=== PATIENT | female | born 1960 | race Asian ===

== ENCOUNTER 2020-06-13 07:59 | Outpatient (REF) | payer OTHER, SELFPAY ==
[2020-06-13 11:42] LABS: Glucose Urine UA NEG (NEG); Leukocyte Esterase Urine NEG (NEG); Nitrite Urine NEG (NEG); PH 5.5 (5.0-8.0); Specific Gravity - Urine 1.025 (1.005-1.025); Urine Blood 1+ (NEG); Urine Ketones NEG (NEG); Urine Protein NEG (NEG-TRACE)
[2020-06-13 11:49] LABS: Appearance Urine HAZY; Color Urine YELLOW
[2020-06-13 12:31] LABS: Bacteria Urine TRACE /LPF; Mucus Urine 1+ /LPF; Squamous Epithelial Cell Urine 2+ /LPF; WBC Urine 0 /HPF (0-4)
== END 2020-06-13 08:00 | disposition home or self-care (01) ==
LOC: HO.HMGCLDS 07:59
PROVIDERS: PCP Internal Medicine; Visit Provider Internal Medicine
DX: M54.9 Dorsalgia, unspecified (principal); G62.9 Polyneuropathy, unspecified
CPT/HCPCS: 81001

== ENCOUNTER 2020-06-27 09:02 | Outpatient (REF) | payer OTHER, SELFPAY ==
--- NOTE | 2020-06-27 09:10 | XR_ITS ---
EXAMINATION: THORACIC AND LUMBAR SPINE. CLINICAL INFORMATION: Thoracic and lumbar spine pain. COMPARISON: None TECHNIQUE: 3 views dorsal spine. 3 views lumbar spine. FINDINGS: Dorsal spine: There is normal thoracic kyphosis. The vertebral heights, alignment and disc heights are normal. There is mild ventral spondylosis mid and lower dorsal spine. The paravertebral soft tissues are normal. Lumbar spine: There is normal lumbar lordosis. There is grade 1 anterolisthesis L5 over S1. Rest of the disc heights and all vertebral heights are normal. There is loss of L1-L2 and L2-L3 disc heights with mild ventral spondylosis. There is no visible acute fracture, dislocation or lytic process. There is mild bilateral L4-L5 facet joint arthropathy. XR/XR thoracic spine 3V IMPRESSION: Mild degenerative disc changes L1-L2 and L2-L3 disc levels without any visible acute fracture, dislocation. There is grade 1 anterolisthesis L5 over S1. There is mild ventral spondylosis as well. There is no visible acute fracture or dislocation thoracic or lumbar spine. There is mild ventral spondylosis mid and lower dorsal spine.
--- NOTE | 2020-06-27 09:10 | XR_ITS ---
EXAMINATION: THORACIC AND LUMBAR SPINE. CLINICAL INFORMATION: Thoracic and lumbar spine pain. COMPARISON: None TECHNIQUE: 3 views dorsal spine. 3 views lumbar spine. FINDINGS: Dorsal spine: There is normal thoracic kyphosis. The vertebral heights, alignment and disc heights are normal. There is mild ventral spondylosis mid and lower dorsal spine. The paravertebral soft tissues are normal. Lumbar spine: There is normal lumbar lordosis. There is grade 1 anterolisthesis L5 over S1. Rest of the disc heights and all vertebral heights are normal. There is loss of L1-L2 and L2-L3 disc heights with mild ventral spondylosis. There is no visible acute fracture, dislocation or lytic process. There is mild bilateral L4-L5 facet joint arthropathy. XR/XR lumbar spine 2-3V IMPRESSION: Mild degenerative disc changes L1-L2 and L2-L3 disc levels without any visible acute fracture, dislocation. There is grade 1 anterolisthesis L5 over S1. There is mild ventral spondylosis as well. There is no visible acute fracture or dislocation thoracic or lumbar spine. There is mild ventral spondylosis mid and lower dorsal spine.
== END 2020-06-27 09:03 | disposition home or self-care (01) ==
LOC: HO.HMGCX 09:02
PROVIDERS: PCP Internal Medicine; Visit Provider Internal Medicine
DX: M54.9 Dorsalgia, unspecified (principal)
CPT/HCPCS: 72072; 72100

== ENCOUNTER → 2020-10-17 08:14 | Outpatient (BNV) | payer OTHER, SELFPAY | PROVIDERS: PCP Internal Medicine; Visit Provider Internal Medicine Medical Oncology | DX: C23 Malignant neoplasm of gallbladder (principal); M85.80 Other specified disorders of bone density and structure, unspecified site; Z85.3 Personal history of malignant neoplasm of breast | CPT/HCPCS: 99213; 99214 ==

== ENCOUNTER → 2020-10-24 09:22 | Outpatient (REF) | payer OTHER, SELFPAY ==
--- NOTE | ~2020-10-24 | NM_ITS ---
EXAMINATION: NM BONE SCAN OF THE WHOLE BODY CLINICAL INFORMATION: Malignant neoplasm of the breast. COMPARISON: Films dated 06/27/2020, bone scan dated 08/12/2017. TECHNIQUE: Multiple gamma scintillation camera images of the whole body were performed 2.75 hours following the intravenous administration of 27 mCi Tc-99m MDP. FINDINGS: In the head, once again some uptake around the left maxillary region is seen. This may be consistent with sinus disease. Some spotty uptake in the mandible is likely related to dental changes. In the thoracic cage and upper extremities, unremarkable. Some mottled uptake is likely degenerative. Some mild uptake in the AC joints right greater than left is likely degenerative. In the spine, moderately intense uptake in the [id number] cervical spine is increasing from previous but likely degenerative in nature. Otherwise, mottled uptake in the thoracic and lumbar spine is stable. In the pelvis, no suspicious finding. In the lower extremities, spotty uptake in the knees and ankle regions are likely degenerative in nature. No other definite bony abnormalities are noted. The urinary bladder and faint visualization of both kidneys are noted. NM/NM bone scan whole body IMPRESSION: No convincing scintigraphic evidence metastatic disease. There is increasing uptake in the mid cervical spine on the right posterior which may well be increased active degenerative changes. I am recommending a plain film here to correlate. Otherwise, areas of uptake described are likely degenerative in nature.
== END ==
LOC: HO.NUCMED 09:22
PROVIDERS: Visit Provider Internal Medicine Medical Oncology
DX: C50.919 Malignant neoplasm of unspecified site of unspecified female breast (principal)
CPT/HCPCS: 78306; A9503

== ENCOUNTER 2020-10-31 08:09 | Outpatient (REF) | payer OTHER, SELFPAY ==
--- NOTE | ~2020-10-31 | XR_ITS ---
EXAMINATION: XR CERVICAL SPINE CLINICAL INFORMATION: Neck pain. COMPARISON: None. TECHNIQUE: 3 views of the cervical spine were obtained. FINDINGS: There is normal cervical lordosis. The vertebral heights and alignment is normal. The disc heights are maintained. There is moderate ventral spondylosis at C2-C3, C3-C4, C4-C5, C5-C6 and C6-C7 disc levels. There is no visible acute fracture, dislocation or subluxation. The prevertebral soft tissues are normal XR/XR cervical spine 3V IMPRESSION: Moderate ventral spondylosis C2-C3 through C6-C7 disc levels. No visible acute fracture or dislocation seen.
[2020-10-31 08:48] LABS: MANUAL DIFF FLAG NO
[2020-10-31 08:50] LABS: Basophils Percent Auto 0.8 % (0-2); Eosinophils Absolute Auto 0.2 X10*3/uL (0.0-0.4); Eosinophils Percent Auto 2.9 % (0-4); Hematocrit 37.6 % (37-47); Hemoglobin 12.5 g/dl (12.0-16.0); Imm Gran Abs Auto 0.01 X10*3/uL (0.00-0.03); Imm Gran Pct Auto 0.2 % (0.0-0.4); Lymphocytes Absolute Auto 2.4 X10*3/uL (1.2-4.9); Lymphocytes Percent Auto 47.2 % (20-40); Mean Corpuscular HGB Conc 33.2 g/dl (31.0-35.0); Mean Corpuscular Hemoglobin 30.3 pg (27.0-33.0); Mean Corpuscular Volume 91.3 fL (80-98); Mean Platelet Volume 9.6 fL (9.4-12.3); Monocytes Absolute Auto 0.5 X10*3/uL (0.1-1.2); Monocytes Percent Auto 9.6 % (2-11); Neutrophils Percent Auto 39.3 % (45-73); Platelet Count 222 X10*3/uL (160-400); Red Blood Count 4.12 X10*6/uL (4.20-5.50); Red Cell Distribution Width 12.8 % (11.0-16.0); White Blood Count 5.1 X10*3/uL (4.8-10.8)
[2020-10-31 09:22] LABS: Glucose Urine UA NEG (NEG); Leukocyte Esterase Urine NEG (NEG); Nitrite Urine NEG (NEG); Urine Blood TRACE (NEG); Urine Ketones NEG (NEG); Urine Protein NEG (NEG-TRACE)
[2020-10-31 09:24] LABS: Appearance Urine HAZY; Color Urine YELLOW
[2020-10-31 09:25] LABS: Alanine Aminotransferase 20 U/L (0-31); Albumin Level 4.2 g/dL (3.5-5.0); Alkaline Phosphatase 57 U/L (39-117); Anion Gap 12 (12-20); Aspartate Amino Transferase 21 U/L (5-31); Bilirubin Direct 0.2 mg/dL (0.0-0.5); Bilirubin Total 0.8 mg/dL (0.0-1.0); Blood Urea Nitrogen 15 mg/dL (9-16); Calcium 8.6 mg/dL (8.4-10.2); Carbon Dioxide 26 mmol/L (22-29); Chloride 106 mmol/L (96-108); Cholesterol 247 mg/dL; Cholesterol 251 mg/dL; Estimated Glomerular Filt Rate > 60; Glucose Random 106 mg/dL (60-115); HDL Cholesterol 54 mg/dL; LDL Cholesterol Calculated 154 mg/dl; LDL Cholesterol Calculated 159 mg/dl; Potassium 4.4 mmol/L (3.3-5.1); Sodium 140 mmol/L (135-145); Total Protein 7.7 g/dL (6.5-8.0); Triglycerides 190 mg/dL; Triglycerides 196 mg/dL
[2020-10-31 09:35] LABS: Vitamin D 25-OH Total 28.8 ng/mL (>30)
[2020-10-31 09:36] LABS: Bacteria Urine 3+ /LPF; RBC Urine 0-2 /HPF (0); Squamous Epithelial Cell Urine 4+ /LPF
[2020-10-31 10:09] LABS: Reflex LDLD? No
[2020-11-01 12:38] LABS: CA 27.29 27 U/mL (<38)
== END 2020-10-31 08:10 | disposition home or self-care (01) ==
LOC: HO.LAB 08:09
PROVIDERS: Absent Provider Internal Medicine Medical Oncology; PCP Internal Medicine; Visit Provider Internal Medicine
DX: E78.5 Hyperlipidemia, unspecified (principal); E78.00 Pure hypercholesterolemia, unspecified; C50.919 Malignant neoplasm of unspecified site of unspecified female breast; M54.2 Cervicalgia; M54.9 Dorsalgia, unspecified; G62.9 Polyneuropathy, unspecified; M19.90 Unspecified osteoarthritis, unspecified site
CPT/HCPCS: 36415; 72040; 80053; 80061; 80076; 81001; 82248; 82306; 85025; 86300

== ENCOUNTER 2020-11-16 09:45 | Outpatient (REF) | payer OTHER, SELFPAY ==
--- NOTE | ~2020-11-16 | US_ITS ---
EXAMINATION: US RETROPERITONEAL LIMITED (RENAL ONLY) CLINICAL INFORMATION: Dorsalgia, unspecified. COMPARISON: Ultrasound renals only dated 12/08/2018. TECHNIQUE: Real-time imaging of the kidneys. FINDINGS: RIGHT KIDNEY: 10.4 x 3.7 x 3.7 cm (SAG x AP x TRV). The kidney is normal in size, contour, and echogenicity. Renal cortical thickness is normal. No renal calculi or hydronephrosis. There is anechoic cyst in lower pole measuring 2.4 x 2.0 x 2.6 cm. LEFT KIDNEY: 10.1 x 4.5 x 4.4 cm (SAG x AP x TRV). The kidney is normal in size, contour, and echogenicity. Renal cortical thickness is normal. No calculi or focal parenchymal lesions. No hydronephrosis. Incidental note is made of an echogenic mobile gallstone. US/US renal BI IMPRESSION: Anechoic cyst lower pole right kidney measuring 2.4 x 2.0 x 2.6 cm. Unremarkable left kidney.
== END 2020-11-16 09:46 | disposition home or self-care (01) ==
LOC: HO.US 09:45
PROVIDERS: Visit Provider Internal Medicine
DX: M54.9 Dorsalgia, unspecified (principal)
CPT/HCPCS: 76775

== ENCOUNTER 2020-11-22 11:09 | Outpatient (REF) | payer OTHER, SELFPAY ==
--- NOTE | ~2020-11-22 | MM_ITS ---
EXAMINATION: MM SCREENING DIGITAL BREAST TOMOSYNTHESIS, BILATERAL CLINICAL INFORMATION: Screening. Asymptomatic. Prior history left invasive breast cancer 10/23/2016. Due for yearly. COMPARISON: Mammography: 11/22/2019, 10/06/2018, 12/12/2017, 10/15/2017 TECHNIQUE: Digital breast tomosynthesis is performed in both the craniocaudal and mediolateral oblique views along with computer-aided detection (CAD). Synthesized 2D images are generated from the tomosynthesis. Additional left MLO view is provided. FINDINGS: There are scattered areas of fibroglandular density (ACR BI-RADS breast composition Category b). There are post therapy changes left breast with mild reduced breast size and surgical clips and stable scarring. Again, there are scattered bilateral round and vascular calcifications. Parenchymal pattern is similar to prior studies. There is no interval mass or architectural abnormality or abnormal calcifications. No significant changes. MM/MM tomosynthesis screening BI IMPRESSION: No mammographic evidence of malignancy. Post therapy changes left breast. ASSESSMENT: BI-RADS 2: Benign RECOMMENDATION: Routine annual mammography screening. This patient's information was entered into a reminder system with a target due date for their next mammogram.
== END 2020-11-22 11:10 | disposition home or self-care (01) ==
LOC: HO.MAMMO 11:09
PROVIDERS: PCP Internal Medicine; Visit Provider Internal Medicine
DX: Z12.31 Encounter for screening mammogram for malignant neoplasm of breast (principal)
CPT/HCPCS: 77063; 77067

== ENCOUNTER 2021-01-19 08:00 | Outpatient (RCR) | payer OTHER, SELFPAY ==
--- NOTE | 2021-01-19 15:44 | MHC.OT.DC ---
[address] [phone] F: [phone] Occupational Therapy Discharge Note Provider: Xavier Doan MD Diagnosis: Left upper extremity Lymphedema Date of Surgery: 10/18/16 Date of Evaluation: 01/16/21 Date of Discharge: Treatments to Date: 12 Cancellations to Date: No Shows to Date: Discharge Status: Achieved Goals Improved Function Independent with HEP Discharge Summary: Good improvement in LUE edema. Significant decrease in fibrotic breast tissue. Continued distal forearm lymphedema fat pad with a significant decrease in pain at ~2/10. Pt is indep in self management of lymphedema with sleeve wear tolerance at 6 hours a day and wearing a night compression wrap. Goals met Pt will require re assessment of her compression sleeve and gauntlet in ~6 mo to ensure adequate compression for lymphedema management. Electronically Signed By: Robyn Elder OT CHT CLT Reviewed/agree with student documentation: N/A Therapist: Please Sign and return to therapist, thank you for your referral.
== END 2021-01-19 15:42 | disposition other institution (70) ==
LOC: HO.OT 08:00
PROVIDERS: PCP Internal Medicine; Visit Provider Internal Medicine Medical Oncology
DX: I89.0 Lymphedema, not elsewhere classified (principal)
CPT/HCPCS: 29125; 97035; 97110; 97140; 97166; 97760

== ENCOUNTER 2021-02-01 07:57 | Outpatient (REF) | payer OTHER, SELFPAY ==
--- NOTE | ~2021-02-01 | US_ITS ---
EXAMINATION: US ABDOMEN COMPLETE CLINICAL INFORMATION: Calculus of gallbladder without cholecystitis without obstruction. COMPARISON: Renal ultrasound 11/16/2020 and 12/08/2018. TECHNIQUE: Real-time imaging of the abdominal viscera. FINDINGS: PANCREAS: Visualized portions unremarkable. ABDOMINAL AORTA: Visualized portions show mild to moderate atherosclerosis without aneurysmal dilatation. INFERIOR VENA CAVA: Visualized portions unremarkable. LIVER: Diffuse increased echotexture without focal abnormality. GALLBLADDER: Gallstones measuring 2.1 cm. No mural thickening or pericholecystic fluid. COMMON BILE DUCT: Common hepatic duct measures 0.7 cm. Common bile duct measures 0.4 cm. RIGHT KIDNEY: 11.1 cm. An interpolar anechoic cyst measures 2.8 cm. Unremarkable. LEFT KIDNEY: 10.1 cm. Unremarkable. SPLEEN: 7.6 cm. Unremarkable. FREE FLUID: None. US/US abdomen complete IMPRESSION: 1. Cholelithiasis without evidence for acute cholecystitis. 2. Hepatic steatosis. 3. Right renal cyst demonstrates benign features.
== END 2021-02-01 07:58 | disposition home or self-care (01) ==
LOC: HO.US 07:57
PROVIDERS: Visit Provider Internal Medicine Gastroenterology
DX: K80.20 Calculus of gallbladder without cholecystitis without obstruction (principal)
CPT/HCPCS: 76700

== ENCOUNTER → 2021-02-12 08:38 | Outpatient (BNVA) | payer OTHER, SELFPAY | PROVIDERS: PCP Internal Medicine; Referring Provider Internal Medicine; Visit Provider Internal Medicine Gastroenterology | DX: R10.9 Unspecified abdominal pain (principal); R10.13 Epigastric pain; E66.9 Obesity, unspecified; K52.9 Noninfective gastroenteritis and colitis, unspecified; K80.20 Calculus of gallbladder without cholecystitis without obstruction; Z79.899 Other long term (current) drug therapy | CPT/HCPCS: 99212 ==

== ENCOUNTER 2021-02-13 08:43 | Outpatient (REF) | payer OTHER, SELFPAY ==
[2021-02-15 23:37] LABS: HPV mRNA E6/E7 rflx Not Detected (Not Detected)
== END 2021-02-13 08:44 | disposition home or self-care (01) ==
LOC: HO.LAB 08:43
PROVIDERS: PCP Internal Medicine; Visit Provider Advanced Practice Midwife
DX: Z01.419 Encounter for gynecological examination (general) (routine) without abnormal findings (principal); Z85.3 Personal history of malignant neoplasm of breast
CPT/HCPCS: 87624; 88142

== ENCOUNTER 2021-03-30 07:50 | Outpatient (REF) | payer OTHER, SELFPAY ==
[2021-03-30 09:19] LABS: MANUAL DIFF FLAG NO
[2021-03-30 09:25] LABS: Basophils Absolute Auto 0.1 X10*3/uL (0.0-0.2); Basophils Percent Auto 0.6 % (0-2); Eosinophils Absolute Auto 0.1 X10*3/uL (0.0-0.4); Eosinophils Percent Auto 1.5 % (0-4); Hematocrit 38.8 % (37-47); Hemoglobin 12.6 g/dl (12.0-16.0); Imm Gran Abs Auto 0.02 X10*3/uL (0.00-0.03); Imm Gran Pct Auto 0.2 % (0.0-0.4); Lymphocytes Percent Auto 36.5 % (20-40); Mean Corpuscular HGB Conc 32.5 g/dl (31.0-35.0); Mean Corpuscular Hemoglobin 30.4 pg (27.0-33.0); Mean Corpuscular Volume 93.7 fL (80-98); Mean Platelet Volume 9.6 fL (9.4-12.3); Monocytes Absolute Auto 0.7 X10*3/uL (0.1-1.2); Monocytes Percent Auto 8.4 % (2-11); Neutrophils Absolute Auto 4.3 X10*3/uL (2.0-8.3); Neutrophils Percent Auto 52.8 % (45-73); Platelet Count 207 X10*3/uL (160-400); Red Blood Count 4.14 X10*6/uL (4.20-5.50); Red Cell Distribution Width 12.8 % (11.0-16.0); White Blood Count 8.2 X10*3/uL (4.8-10.8)
[2021-03-30 09:48] LABS: Alanine Aminotransferase 17 U/L (0-31); Albumin Level 3.9 g/dL (3.5-5.0); Alkaline Phosphatase 60 U/L (39-117); Anion Gap 15 (12-20); Aspartate Amino Transferase 23 U/L (5-31); Bilirubin Total 0.5 mg/dL (0.0-1.0); Blood Urea Nitrogen 11 mg/dL (9-16); C Reactive Protein 0.54 mg/dL (< or = 0.50); Calcium 9.2 mg/dL (8.4-10.2); Carbon Dioxide 22 mmol/L (22-29); Chloride 107 mmol/L (96-108); Estimated Glomerular Filt Rate > 60; Glucose Random 98 mg/dL (60-115); Potassium 4.9 mmol/L (3.3-5.1); Rheumatoid Factor < 15.0 IU/mL (<15.0); Sodium 139 mmol/L (135-145); Total Protein 7.4 g/dL (6.5-8.0)
[2021-03-30 10:07] LABS: Erythrocyte Sedimentation Rate 5 MM/HR (0-20)
[2021-03-31 08:11] LABS: Lyme Abs Screen <0.90 index
[2021-04-04 21:02] LABS: Cyclic Citrullinated Peptide <16 UNITS
[2021-04-06 14:36] LABS: Vitamin D 25-OH, D2 <4 ng/mL; Vitamin D 25-OH, D3 27 ng/mL; Vitamin D 25-OH, Total 27 ng/mL (30-100)
== END 2021-03-30 07:51 | disposition home or self-care (01) ==
LOC: HO.LAB 07:50
PROVIDERS: PCP Internal Medicine; Visit Provider Student in an Organized Health Care Education/Training Program
DX: M15.9 Polyosteoarthritis, unspecified (principal); Z79.899 Other long term (current) drug therapy
CPT/HCPCS: 36415; 80053; 82306; 85025; 85652; 86140; 86200; 86431; 86617; 86618; 99202

== ENCOUNTER → 2021-04-19 08:23 | Outpatient (BNVA) | payer OTHER, SELFPAY | PROVIDERS: PCP Internal Medicine; Visit Provider Nurse Practitioner Family | DX: M15.9 Polyosteoarthritis, unspecified (principal) | CPT/HCPCS: 99212 ==

== ENCOUNTER → 2021-05-10 13:29 | Outpatient (BNVA) | payer OTHER, SELFPAY | PROVIDERS: PCP Internal Medicine; Visit Provider Urology | DX: N28.1 Cyst of kidney, acquired (principal); N20.0 Calculus of kidney; M54.9 Dorsalgia, unspecified; Z88.1 Allergy status to other antibiotic agents; Z88.0 Allergy status to penicillin | CPT/HCPCS: 99212 ==

== ENCOUNTER 2021-06-15 12:03 | Outpatient (REF) | payer OTHER, SELFPAY ==
--- NOTE | ~2021-06-15 | XR_ITS ---
EXAMINATION: XR KNEE, RIGHT CLINICAL INFORMATION: Right knee pain. COMPARISON: Right knee radiographs dated 03/23/2018. TECHNIQUE: Four views of the right knee. FINDINGS: Mild medial compartment joint space narrowing. Tricompartmental marginal osteophytes. No osseous erosion. No fracture or dislocation. Superior patellar enthesophyte. No significant joint effusion. XR/XR knee RT 4V IMPRESSION: Tricompartmental osteoarthritis, slightly progressed when compared to the prior examination.
== END 2021-06-15 12:04 | disposition home or self-care (01) ==
LOC: HO.HMGCX 12:03
PROVIDERS: PCP Internal Medicine; Visit Provider Internal Medicine
DX: M25.561 Pain in right knee (principal)
CPT/HCPCS: 73564

== ENCOUNTER → 2021-07-10 08:39 | Outpatient (BNVA) | payer OTHER, SELFPAY | PROVIDERS: PCP Internal Medicine; Visit Provider Physician Assistant | DX: M17.11 Unilateral primary osteoarthritis, right knee (principal) | CPT/HCPCS: 20610; 99202; J1040 ==

== ENCOUNTER → 2021-07-24 10:59 | Outpatient (BNVA) | payer OTHER, SELFPAY | PROVIDERS: PCP Internal Medicine; Visit Provider Physician Assistant | DX: M17.11 Unilateral primary osteoarthritis, right knee (principal) | CPT/HCPCS: 99212; J7318 ==

== ENCOUNTER 2021-07-31 13:00 | Outpatient (RCR) | payer OTHER, SELFPAY ==
--- NOTE | 2021-06-14 21:11 | MHC.PT.EP ---
[facility] [place] Office [place] Office [place] Office [address] [phone] F: [phone] F: [phone] F: [phone] F: [phone] Physical Therapy Plan of Care Date of Evaluation: Date of Surgery: Diagnosis: Back pain. Assessment: Pt is a 60 y/o female referred to PT for eval and treat of back pain who presents with signs and Sx consistent with lumbosacral dysfunction resulting in decreased tolerance for walking long distances, lifting objects of weight, performing HH chores, standing > 1/2 hour and disturbed sleep. Pt is deemed an appropriate candidate to receive skilled PT services to address her physical impairments in order to improve her functional ability. Frequency and Duration: The patient will be seen 2 x/ 5 wks. Short Term Goals: Initiate HEP. improve baseline pain from 8/10 to < 5/10. Rol[employer] Goals: Pt will be able to stand > 1 hour with managed back pain; initial < 1/2 hour. Pt will report no longer disturbed of sleep d/t back pain; initial 1/2 night sleep disturbed. Pt will be able to walk lang distances with managed Sx. I with HEP. Treatment Plan: Modalities to reduce pain, spasms and effusion. Manual therapy to restore motion and function. Therapeutic exercise to improve strength and flexibility. Neuromuscular re-education for posture and balance. Therapeutic activities to return to functional activities of daily living. Electronically signed by: Tj Rivera PT Please sign and return to therapist. Thank you for your referral.
--- NOTE | 2021-07-31 13:50 | MHC.PT.DC ---
[facility] [place] Office [place] Office [place] Office [address] Karlie Amado [address] [phone] F: [phone] F: [phone] F: [phone] F: [phone] Physical Therapy Discharge Report Diagnosis: Back pain. Date of Surgery: Date of Evaluation: 06/14/21 Date of Discharge: 07/31/21 Treatments to Date: 9 Cancellations to Date: No Shows to Date: Discharge Status: Achieved Goals Improved Function Independent with HEP Discharge Summary: Susana has been an active participant in her therapy in and out of the clinic, she has met her therapeutic goals for this point of care, is I with her home program and in agreement with DC art this time. Electronically signed by: Tj Rivera PT. Please sign and return to therapist. Thank you for your referral.
== END 2021-11-05 08:40 | disposition home or self-care (01) ==
LOC: HO.PTCHIC 13:00
PROVIDERS: PCP Internal Medicine; Visit Provider Internal Medicine
DX: N81.9 Female genital prolapse, unspecified (principal)
CPT/HCPCS: 97110; 97140; 97161

== ENCOUNTER 2021-08-07 07:16 | Outpatient (REF) | payer OTHER, SELFPAY ==
--- NOTE | ~2021-08-07 | XR_ITS ---
EXAMINATION: XR SHOULDER, RIGHT XR SHOULDER, LEFT CLINICAL INFORMATION: Pain COMPARISON: None TECHNIQUE: 3 views of each shoulder FINDINGS: Right shoulder: No fracture or dislocation. The glenohumeral joint is well aligned. The joint space is maintained with small marginal osteophytes present. The acromioclavicular joint is intact with mild hypertrophic degenerative change. The visualized lung is clear. The visualized ribs are intact. Left shoulder: No fracture or dislocation. The glenohumeral joint is well aligned. The joint space is maintained. The acromioclavicular joint is intact with mild hypertrophic degenerative change. The visualized lung is clear. The visualized ribs are intact. XR/XR shoulder RT min 2V IMPRESSION: Mild degenerative changes at both acromioclavicular joints. Mild degenerative change of the right glenohumeral joint.
--- NOTE | ~2021-08-07 | XR_ITS ---
EXAMINATION: XR SHOULDER, RIGHT XR SHOULDER, LEFT CLINICAL INFORMATION: Pain COMPARISON: None TECHNIQUE: 3 views of each shoulder FINDINGS: Right shoulder: No fracture or dislocation. The glenohumeral joint is well aligned. The joint space is maintained with small marginal osteophytes present. The acromioclavicular joint is intact with mild hypertrophic degenerative change. The visualized lung is clear. The visualized ribs are intact. Left shoulder: No fracture or dislocation. The glenohumeral joint is well aligned. The joint space is maintained. The acromioclavicular joint is intact with mild hypertrophic degenerative change. The visualized lung is clear. The visualized ribs are intact. XR/XR shoulder LT min 2V IMPRESSION: Mild degenerative changes at both acromioclavicular joints. Mild degenerative change of the right glenohumeral joint.
== END 2021-08-07 07:17 | disposition home or self-care (01) ==
LOC: HO.HOSX 07:16
PROVIDERS: Visit Provider Physician Assistant
DX: M25.512 Pain in left shoulder (principal); M25.511 Pain in right shoulder; M54.12 Radiculopathy, cervical region; C50.912 Malignant neoplasm of unspecified site of left female breast; Z86.010 Personal history of colon polyps; Z88.1 Allergy status to other antibiotic agents; Z88.0 Allergy status to penicillin
CPT/HCPCS: 73030; 99212

== ENCOUNTER → 2021-09-10 08:10 | Outpatient (BNVA) | payer OTHER, SELFPAY | PROVIDERS: PCP Internal Medicine; Referring Provider Internal Medicine; Visit Provider Internal Medicine Gastroenterology | DX: K52.9 Noninfective gastroenteritis and colitis, unspecified (principal); K80.20 Calculus of gallbladder without cholecystitis without obstruction; R10.13 Epigastric pain; R10.9 Unspecified abdominal pain | CPT/HCPCS: 99212 ==

== ENCOUNTER 2021-09-11 07:18 | Outpatient (REF) | payer OTHER, SELFPAY ==
--- NOTE | ~2021-09-11 | XR_ITS ---
EXAMINATION: CR X-RAY KNEE STANDING BILATERAL CLINICAL INFORMATION: Bilateral knee pain. COMPARISON: None TECHNIQUE: 3 views each of the bilateral knees were obtained with AP standing views. FINDINGS: Mild femoral-tibial, moderate right patellofemoral and mild left patellofemoral degenerative joint changes are seen. There is no acute fracture or dislocation. No significant joint effusion is seen. The soft tissues are unremarkable. XR/XR knee RT 2V IMPRESSION: Tricompartmental degenerative joint changes bilaterally most pronounced in the right patellofemoral joint without acute abnormality most consistent with osteoarthritis.
--- NOTE | ~2021-09-11 | XR_ITS ---
EXAMINATION: CR X-RAY KNEE STANDING BILATERAL CLINICAL INFORMATION: Bilateral knee pain. COMPARISON: None TECHNIQUE: 3 views each of the bilateral knees were obtained with AP standing views. FINDINGS: Mild femoral-tibial, moderate right patellofemoral and mild left patellofemoral degenerative joint changes are seen. There is no acute fracture or dislocation. No significant joint effusion is seen. The soft tissues are unremarkable. XR/XR knee LT 2V IMPRESSION: Tricompartmental degenerative joint changes bilaterally most pronounced in the right patellofemoral joint without acute abnormality most consistent with osteoarthritis.
--- NOTE | ~2021-09-11 | XR_ITS ---
EXAMINATION: CR X-RAY KNEE STANDING BILATERAL CLINICAL INFORMATION: Bilateral knee pain. COMPARISON: None TECHNIQUE: 3 views each of the bilateral knees were obtained with AP standing views. FINDINGS: Mild femoral-tibial, moderate right patellofemoral and mild left patellofemoral degenerative joint changes are seen. There is no acute fracture or dislocation. No significant joint effusion is seen. The soft tissues are unremarkable. XR/XR knee standing BI IMPRESSION: Tricompartmental degenerative joint changes bilaterally most pronounced in the right patellofemoral joint without acute abnormality most consistent with osteoarthritis.
== END 2021-09-11 07:19 | disposition home or self-care (01) ==
LOC: HO.HOSX 07:18
PROVIDERS: Visit Provider Physician Assistant
DX: M17.11 Unilateral primary osteoarthritis, right knee (principal); M25.562 Pain in left knee
CPT/HCPCS: 73560; 73565; 99212

== ENCOUNTER → 2021-09-18 09:58 | Outpatient (BNVA) | payer OTHER, SELFPAY | PROVIDERS: PCP Internal Medicine; Visit Provider Nurse Practitioner Family | DX: M47.812 Spondylosis without myelopathy or radiculopathy, cervical region (principal); M79.18 Myalgia, other site; G62.9 Polyneuropathy, unspecified | CPT/HCPCS: 99202 ==

== ENCOUNTER 2021-11-06 10:00 | Outpatient (RCR) | payer OTHER, SELFPAY ==
--- NOTE | 2021-10-04 18:02 | MHC.PT.EP ---
[facility] [place] Office [place] Office [place] Office [address] [phone] F: [phone] F: [phone] F: [phone] F: [phone] Physical Therapy Plan of Care Date of Evaluation: Date of Surgery: Diagnosis: Neck pain Assessment: Pt is a 60 y/o female referred to PT for eval and treat of cervical mm strain who presents with signs and Sx consistent with cervicalgia resulting in decreased tolerance for lifting objects of weight like grocery bags, driving, reading and concentration, as well as disturbed sleep secondary to decreased cervical ROM and strength, decreased cervical / scapular posture in sitting, increased cervical accessory tissue tension, and pain. Pt is deemed an appropriate candidate to receive skilled PT services to address her physical impairments in order to improve her functional limitations. Frequency and Duration: The patient will be seen 2 x / wk x 5 wks. Short Term Goals: Initiate HEP. Improve baseline pain with activity to < 5/10, initial 8/10. [place]ko[employer] Operator Goals: I with HEP. symmetrical cervical rotation AROM w/o pain. Pt will report her sleep is only disturbed at most 1/4 of the night; initial: 3/4 disturbed. Pt will report able to drive w/o cervical pain. Pt will report she ia able to read as much as she'd like with moderate pain in her neck; initial: cannot read as much as shed like d/t severe neck pain. Treatment Plan: Modalities to reduce pain, spasms and effusion. Manual therapy to restore motion and function. Therapeutic exercise to improve strength and flexibility. Neuromuscular re-education for posture and balance. Therapeutic activities to return to functional activities of daily living. Electronically signed by: Tj Rivera, PT, DPT. Please sign and return to therapist. Thank you for your referral.
--- NOTE | 2021-11-06 11:51 | MHC.PT.DC ---
[facility] [place] Office [place] Office [address] Karlie Amado [address] [phone] F: [phone] F: [phone] F: [phone] F: [phone] Physical Therapy Discharge Report Diagnosis: Neck pain Date of Surgery: Date of Evaluation: 10/01/21 Date of Discharge: 11/06/21 Treatments to Date: 10 Cancellations to Date: No Shows to Date: Discharge Status: Achieved Goals Improved Function Independent with HEP Discharge Summary: Jose has been an active participant in her therapy in and out of the clinic for management of her cervical pain. She persists with some OA pain of her neck though has met her therapeutic goals of significantly improved sleep, driving and reading tolerance and comfort as well as AROM rotation symmetry. Pt is in agreement with DC at this time. Electronically signed by: Tj Rivera PT. Please sign and return to therapist. Thank you for your referral.
== END 2021-11-06 11:51 | disposition home or self-care (01) ==
LOC: HO.PTCHIC 10:00
PROVIDERS: Visit Provider Nurse Practitioner Family
DX: S16.1XXD Strain of muscle, fascia and tendon at neck level, subsequent encounter (principal)
CPT/HCPCS: 97110; 97140; 97162

== ENCOUNTER 2021-11-29 12:54 | Outpatient (REF) | payer OTHER, SELFPAY ==
--- NOTE | ~2021-11-29 | MM_ITS ---
EXAMINATION: BONE DENSITOMETRY CLINICAL INDICATION: Osteopenia. COMPARISON: Previous BD dated 05/04/2019 and baseline BD dated 04/29/2017. TECHNIQUE: Using a [employer] DXA System (software version: 13.1) manufactured by [employer], dual-energy x-ray absorptiometry was performed of the lumbar spine and left hip. The images are of good technical quality. Summary results are attached. FINDINGS: AP SPINE L1-L4: Current: BMD 1.062 g/cm2, Z-score -0.2, T-score -1.0, normal, 7.9% increase from previous, 17.7% increase from baseline (<5% change is not significant). Prior: BMD 0.984 g/cm2. Baseline: BMD 0.902 g/cm2. LEFT FEMUR, NECK: Current: BMD 0.806 g/cm2, Z-score -0.7, T-score -1.7, osteopenia. Prior: BMD 0.743 g/cm2. Baseline: BMD 0.762 g/cm2. LEFT FEMUR, TOTAL: Current: BMD 0.887 g/cm2, Z-score -0.3, T-score -1.0, normal, 6.1% increase from previous, 7.1% increase from baseline (<5% change is not significant). Prior: BMD 0.836 g/cm2. Baseline: BMD 0.828 g/cm2. IDENTIFIED RISK FACTORS: Menopause. HISTORY OF FRACTURE: None listed. MEDICATIONS: Vitamin D, ERT/SERMS, bisphosphonates. MM/XR DEXA axial skeleton IMPRESSION: 1. DIAGNOSIS: Osteopenia based on the lowest T-score value of -1.7 in the femoral neck applying World Health Organization criteria. 2. 10-YEAR FRACTURE RISK PREDICTION, FRAX: Major osteoporotic fracture (clinical spine, forearm, hip or shoulder) 4.3%. Hip fracture 0.4%. 3. Treatment Recommendations: NOF guidelines recommend consideration for treatment in postmenopausal women and men age 50 and older presenting with the following: -A hip or vertebral (clinical or morphometric) fracture. -T-score less than or equal to -2.5 at the femoral neck or spine after appropriate evaluation to exclude secondary causes. -Low bone mass at the hip or spine and a 10-year fracture probability by FRAX of greater than or equal to 3% for hip fracture or greater than or equal to 20% for major osteoporotic fracture based on the [place] adapted WHO algorithm. 4. Other Recommendations: All treatment decisions require clinical judgment and consideration of individual patient factors, including patient preferences, comorbidities, previous drug use, risk factors not captured in the FRAX model (e.g. frailty, falls, vitamin D deficiency, increased bone turnover, interval significant decline in bone density) and possible under or overestimation of fracture risk by FRAX. Additional medical evaluation for secondary cause of low bone mineral density may be appropriate. FUTURE SCAN RECOMMENDATION: People with diagnosed cases of osteoporosis or at high risk for fracture should have regular bone mineral density tests. For patients eligible for Medicare, routine testing is allowed once every 2 years. The testing frequency can be increased to one year for patients who have rapidly progressing disease, those who are receiving or discontinuing medical therapy to restore bone mass, or have additional risk factors.
--- NOTE | ~2021-11-29 | MM_ITS ---
EXAMINATION: MM SCREENING DIGITAL BREAST TOMOSYNTHESIS, BILATERAL CLINICAL INFORMATION: Status post left breast lumpectomy in 2017. Status post radiation therapy left breast. COMPARISON: Mammography: November 22, 2020 and studies dating back to August 15, 2014 TECHNIQUE: Digital breast tomosynthesis is performed in both the craniocaudal and mediolateral oblique views along with computer-aided detection (CAD). Synthesized 2D images are generated from the tomosynthesis. Left exaggerated craniocaudal view also performed. FINDINGS: The breasts are heterogeneously dense, which may obscure small masses (ACR BI-RADS breast composition Category c). There are no new significant masses, abnormal calcifications, or other abnormalities. Postsurgical and postradiation change seen within the left breast. MM/MM tomosynthesis screening BI IMPRESSION: There are no significant changes from prior study. ASSESSMENT: BI-RADS 2: Benign RECOMMENDATION: Routine annual mammography screening. This patient's information was entered into a reminder system with a target due date for their next mammogram.
== END 2021-11-29 12:55 | disposition home or self-care (01) ==
LOC: HO.MAMMO 12:54
PROVIDERS: PCP Internal Medicine; Visit Provider Internal Medicine Medical Oncology
DX: Z12.31 Encounter for screening mammogram for malignant neoplasm of breast (principal); Z13.820 Encounter for screening for osteoporosis; Z78.0 Asymptomatic menopausal state; M85.80 Other specified disorders of bone density and structure, unspecified site
CPT/HCPCS: 77063; 77067; 77080

== ENCOUNTER → 2022-01-10 08:25 | Outpatient (BNVA) | payer OTHER, SELFPAY | PROVIDERS: PCP Internal Medicine; Referring Provider Internal Medicine; Visit Provider Internal Medicine Gastroenterology | DX: K80.20 Calculus of gallbladder without cholecystitis without obstruction (principal); K52.9 Noninfective gastroenteritis and colitis, unspecified; R10.9 Unspecified abdominal pain | CPT/HCPCS: 99212 ==

== ENCOUNTER 2022-02-13 07:40 | Outpatient (REF) | payer OTHER, SELFPAY ==
--- NOTE | ~2022-02-13 | US_ITS ---
EXAMINATION: US ABDOMEN COMPLETE CLINICAL INFORMATION: Calculus of gallbladder without cholecystitis without obstruction. COMPARISON: Renal ultrasound 03/23/2021. Ultrasound abdomen complete 02/01/2021. CT abdomen and pelvis 01/11/2019. TECHNIQUE: Real-time imaging of the abdominal viscera. FINDINGS: PANCREAS: Normal. ABDOMINAL AORTA: Atherosclerotic disease with vessel wall calcification. Normal caliber. INFERIOR VENA CAVA: Visualized portions are normal. LIVER: The liver is normal in size. The liver contour is normal. Liver echotexture is increased probably representing fatty infiltration. There is a hypoechoic area adjacent to the gallbladder, characteristic location of focal fatty sparing. No other focal hepatic lesion. There is no intrahepatic biliary duct dilatation seen. GALLBLADDER: The gallbladder is physiologically distended. There is a gallstone in the gallbladder. The gallbladder wall is normal. There is no pericholecystic COMMON BILE DUCT: Normal in caliber measuring 0.6 cm in diameter. RIGHT KIDNEY: There is a 2.2 x 1.9 x 2.6 cm cyst with a focus of wall calcification in the lateral midpole. This is unchanged. No hydronephrosis or renal calculi. The kidney measures 10.9 cm in maximum dimension. LEFT KIDNEY: Normal. No hydronephrosis. No renal calculi or focal parenchymal lesions. The kidney measures 10.8 cm in maximum dimension. SPLEEN: Normal. The spleen measures 7.3 cm in maximum dimension. FREE FLUID: None. US/US abdomen complete IMPRESSION: Echogenic liver suggestive of fatty infiltration. Gallstone. Right renal cyst.
== END 2022-02-13 07:41 | disposition home or self-care (01) ==
LOC: HO.US 07:40
PROVIDERS: PCP Internal Medicine; Visit Provider Internal Medicine Gastroenterology
DX: K80.20 Calculus of gallbladder without cholecystitis without obstruction (principal); Z01.419 Encounter for gynecological examination (general) (routine) without abnormal findings; Z11.51 Encounter for screening for human papillomavirus (HPV)
CPT/HCPCS: 76700

== ENCOUNTER 2022-04-01 08:00 | Outpatient (RCR) | payer OTHER, SELFPAY ==
--- NOTE | 2022-02-19 16:53 | MHC.PT.EP ---
[facility] [place] Office [place] Office [place] Office [address] Am[address] [phone] F: [phone] F: [phone] F: [phone] F: [phone] Physical Therapy Plan of Care Date of Evaluation: Date of Surgery: Diagnosis: Pain in R knee. Assessment: Pt is a 61 y/o female referred to PT for eval and treat of R knee who presents with chronic R knee dysfunction resulting in decreased tolerance and ability to perform standing and ambulatory activities for duration, as well as lifting objects of weight from the floor, getting off of the floor, performing walking for fitness fitness, and squatting activities secondary to decreased R knee and B Hip strength, decreased R knee ROM as well as gait abnormality, increased R LE tissue tension, and pain. Pt is deemed an appropriate candidate to receive skilled PT in order to address her physical limitations to improve her function and ability. Frequency and Duration: The patient will be seen 2 x / wk x 5 wks. Short Term Goals: Initiate HEP. Pt will achieve at least 125 degr R knee flexion; initial 118 with painful end. Half-Way Goals: I with HEP. Pt will be able to walk 2 blocks with at most moderate difficulty; initial: unable or with extreme difficulty. Improve R knee extension MMT to at least 4/5; initial: 4-/5. Pt will be able to stand for 1 hour with at most a little bit of difficulty; initial: quite a bit of difficulty. Treatment Plan: Modalities to reduce pain, spasms and effusion. Manual therapy to restore motion and function. Therapeutic exercise to improve strength and flexibility. Neuromuscular re-education for posture and balance. Therapeutic activities to return to functional activities of daily living. Electronically signed by: Tj Rivera PT. Please sign and return to therapist. Thank you for your referral.
--- NOTE | 2022-04-01 09:52 | MHC.PT.DC ---
[facility] [place] Office [place] Office [place] Office [address] Karlie Amado [address] [phone] F: [phone] F: [phone] F: [phone] F: [phone] Physical Therapy Discharge Report Diagnosis: Pain in R knee. Date of Surgery: Date of Evaluation: 02/19/22 Date of Discharge: 04/01/22 Treatments to Date: 9 Cancellations to Date: No Shows to Date: Discharge Status: Independent with HEP Recommend MD Follow-up Discharge Summary: Jose has been an active and motivated participant in her therapy in the clinic with fair home program compliance who has met some of her goals though persists with knee pain performing functional weight bearing activities including negotiating stairs, walking, standing for duration and performing squatting activities per Pt today. She is I with a basic home program and in agreement with DC at this time. Electronically signed by: Tj Rivera PT. Please sign and return to therapist. Thank you for your referral.
== END 2022-04-01 09:52 | disposition home or self-care (01) ==
LOC: HO.PTCHIC 08:00
PROVIDERS: PCP Internal Medicine; Visit Provider Internal Medicine
DX: M25.561 Pain in right knee (principal)
CPT/HCPCS: 97110; 97140; 97162

== ENCOUNTER 2022-05-01 14:39 | Outpatient (REF) | payer OTHER, SELFPAY ==
--- NOTE | ~2022-05-01 | MM_ITS ---
EXAMINATION: MM DIAGNOSTIC DIGITAL BREAST TOMOSYNTHESIS, right breast Targeted right breast ultrasound CLINICAL INFORMATION: Right breast lump lower inner quadrant. Previous left breast lumpectomy. COMPARISON: Mammography: November 29, 2021 and studies dating back to August 17, 2015 TECHNIQUE: Digital breast tomosynthesis is performed in both the craniocaudal and mediolateral oblique views along with computer-aided detection (CAD). Synthesized 2D images are generated from the tomosynthesis. Targeted right breast ultrasound. FINDINGS: There are scattered areas of fibroglandular density (ACR BI-RADS breast composition Category b). There are no significant masses, abnormal calcifications, or other abnormalities. Targeted right breast ultrasound did not demonstrate any abnormal cystic or solid masses. No region of abnormal distal sound shadowing. Results are discussed with the patient at time of visit. MM/MM tomosynthesis diagnostic RT IMPRESSION: There are no significant changes from prior study. ASSESSMENT: BI-RADS 1: Negative RECOMMENDATION: Routine annual mammography screening.. Clinical follow-up. This patient's information was entered into a reminder system with a target due date for their next mammogram.
== END 2022-05-01 14:40 | disposition home or self-care (01) ==
LOC: HO.MAMMO 14:39
PROVIDERS: PCP Internal Medicine; Visit Provider Advanced Practice Midwife
DX: N63.14 Unspecified lump in the right breast, lower inner quadrant (principal)
CPT/HCPCS: 76642; 77061; 77065

== ENCOUNTER → 2022-05-10 08:28 | Outpatient (BNVA) | payer OTHER, SELFPAY | PROVIDERS: PCP Internal Medicine; Visit Provider Orthopaedic Surgery | DX: M17.11 Unilateral primary osteoarthritis, right knee (principal) | CPT/HCPCS: 99212 ==

== ENCOUNTER → 2022-05-20 08:05 | Outpatient (BNVA) | payer OTHER, SELFPAY | PROVIDERS: PCP Internal Medicine; Visit Provider Advanced Practice Midwife | DX: N63.14 Unspecified lump in the right breast, lower inner quadrant (principal) | CPT/HCPCS: 99212 ==

== ENCOUNTER → 2022-06-06 10:48 | Outpatient (BNVA) | payer OTHER, SELFPAY | PROVIDERS: PCP Internal Medicine; Visit Provider Surgery | DX: N63.14 Unspecified lump in the right breast, lower inner quadrant (principal) | CPT/HCPCS: 99202 ==

== ENCOUNTER → 2022-06-11 11:17 | Outpatient (BNVA) | payer OTHER, SELFPAY | PROVIDERS: PCP Internal Medicine; Visit Provider Nurse Practitioner Family | DX: M15.9 Polyosteoarthritis, unspecified (principal); G62.9 Polyneuropathy, unspecified | CPT/HCPCS: 99212 ==

== ENCOUNTER → 2022-06-13 08:43 | Outpatient (BNVA) | payer OTHER, SELFPAY | PROVIDERS: PCP Internal Medicine; Visit Provider Internal Medicine Gastroenterology | DX: K52.9 Noninfective gastroenteritis and colitis, unspecified (principal); K80.20 Calculus of gallbladder without cholecystitis without obstruction; R10.10 Upper abdominal pain, unspecified; R10.9 Unspecified abdominal pain | CPT/HCPCS: 99212 ==

== ENCOUNTER → 2022-06-17 08:51 | Outpatient (BNVA) | payer OTHER, SELFPAY | PROVIDERS: PCP Internal Medicine; Visit Provider Internal Medicine | DX: M17.11 Unilateral primary osteoarthritis, right knee (principal) | CPT/HCPCS: 99212 ==

== ENCOUNTER 2022-06-26 08:12 | Day surgery (SDC) | payer OTHER, SELFPAY ==
[2022-06-20 11:19] VITALS: BMI 31.5
--- NOTE | 2022-06-25 08:43 | HO.ANESPROP2 ---
Documented by User: Joanne Burris NP 06/25/22 08:44 HPI - Anesthesia Eval Consult details Narrative: 61yo F for Right Breast Lumpectomy PMFSH Active Problems Active Problems: All Active Problems (Updated 06/20/22 @ 11:28 by Cora Zambrano RN) Hyperlipidemia (Acute) Inflammatory arthritis (Acute) Osteoarthritis (Acute) Osteopenia (Acute) Abdominal pain (Acute) Chronic diarrhea (Acute) Asymptomatic gallstones (Acute) Breast cancer (Acute) Dyspepsia (Acute) Peripheral vascular disease (Acute) Obesity (BMI 30.0-34.9) (Acute) Mid back pain on right side (Acute) Renal cyst, right (Acute) Serous otitis media (Acute) Arthrosis (Acute) Swelling of toe of both feet (Acute) Encounter for general adult medical examination with abnormal findings (Acute) Routine gynecological examination (Acute) Encounter for annual routine gynecological examination (Acute) Osteoarthritis of multiple joints (Acute) Knee pain, right (Acute) Osteoarthritis of right knee (Acute) Cervical radiculopathy (Acute) Spondylosis of cervical region without myelopathy or radiculopathy (Acute) Myofascial pain (Acute) Strain of cervical portion of both trapezius muscles (Acute) Encounter for annual routine gynecological examination (Acute) Breast lump on right side at 5 o'clock position (Acute) Breast lump on right side at 5 o'clock position (Acute) Patellofemoral arthritis of right knee (Acute) Upper abdominal pain (Acute) Blood in urine (Acute) Vaginal itching (Acute) Back pain (Acute) Neuropathy (Acute) Past Medical History Medical History Back pain Breast cancer, left (~10/2016) History of colon polyps Neuropathy Spondylosis Vaginal yeast infection Family History Family History Mother No problems noted. Father No problems noted. Other No family history of cancer Surgical History Surgical History Hx of colonoscopy (~10/2018) Hx of vein stripping S/P breast lumpectomy Social History Social History Household Members: Family and Children Housing: House Are you a primary home care scheduler to a significant other at home: No Do you presently have visiting nurse or other home services: No Alcohol intake: never Patient Tobacco Use Status: Never used Tobacco e-Cigarette/Vaping Use: Never Used Use of substances other than those prescribed or required for medical reasons: No Are you DNR?: No Advance Directives: No Advance Directives Information Provided: Yes service: No Current occupational status: disabled Current occupation: rt handed Cognitive needs: No Hearing needs: No Vision needs: Yes Meds Allergies Allergy/AdvReac Type Severity Reaction Status Date / Time Penicillins [PENICILLINS] Allergy Severe ANAPHYLAXIS, Verified 06/26/22 08:19 swelling streptomycin [STREPTOMYCIN] Allergy Severe ANAPHYLAXIS Verified 06/26/22 08:19 Exam Exam Date and Time: June 25, 2022 0843 Height,Weight and Vital Signs: Height 5 ft 1 in Weight 75.75 kg Pertinent Lab Results Pertinent Lab Results: Laboratory Tests 05/02/22 05/02/22 09:11 09:11 WBC 6.8 Hgb 12.4 Hct 37.4 Plt Count 211 Sodium 141 Potassium 4.8 Chloride 107 Carbon Dioxide 22 BUN 13 Creatinine 0.71 Assessment and Plan Assessment Anesthesia Assessment: Chart Reviewed Documented by User: Tisha Meadows MD 06/26/22 08:55 [facility] Active Problems Active Problems: All Active Problems (Updated 06/20/22 @ 11:28 by Cora Zambrano RN) Hyperlipidemia (Acute) Inflammatory arthritis (Acute) Osteoarthritis (Acute) Osteopenia (Acute) Abdominal pain (Acute) Chronic diarrhea (Acute) Asymptomatic gallstones (Acute) Breast cancer (Acute) Dyspepsia (Acute) Peripheral vascular disease (Acute) Obesity (BMI 30.0-34.9) (Acute) Mid back pain on right side (Acute) Renal cyst, right (Acute) Serous otitis media (Acute) Arthrosis (Acute) Swelling of toe of both feet (Acute) Encounter for general adult medical examination with abnormal findings (Acute) Routine gynecological examination (Acute) Encounter for annual routine gynecological examination (Acute) Osteoarthritis of multiple joints (Acute) Knee pain, right (Acute) Osteoarthritis of right knee (Acute) Cervical radiculopathy (Acute) Spondylosis of cervical region without myelopathy or radiculopathy (Acute) Myofascial pain (Acute) Strain of cervical portion of both trapezius muscles (Acute) Encounter for annual routine gynecological examination (Acute) Breast lump on right side at 5 o'clock position (Acute) Breast lump on right side at 5 o'clock position (Acute) Patellofemoral arthritis of right knee (Acute) Upper abdominal pain (Acute) Blood in urine (Acute) Vaginal itching (Acute) Back pain (Acute) 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 Father No problems noted. Other No family history of cancer Family history of problems with anesthesia: No Surgical History Surgical History Hx of colonoscopy (~10/2018) Hx of vein stripping S/P breast lumpectomy History of Problems with Anesthesia: No Social History Social History Household Members: Family and Children Housing: House Are you a primary home care scheduler to a significant other at home: No Do you presently have visiting nurse or other home services: No Alcohol intake: never Patient Tobacco Use Status: Never used Tobacco e-Cigarette/Vaping Use: Never Used Use of substances other than those prescribed or required for medical reasons: No Are you DNR?: No Advance Directives: No Advance Directives Information Provided: Yes service: No Current occupational status: disabled Current occupation: rt handed Cognitive needs: No Hearing needs: No Vision needs: Yes Meds Allergies Allergy/AdvReac Type Severity Reaction Status Date / Time Penicillins [PENICILLINS] Allergy Severe ANAPHYLAXIS, Verified 06/26/22 08:19 swelling streptomycin [STREPTOMYCIN] Allergy Severe ANAPHYLAXIS Verified 06/26/22 08:19 Exam Height,Weight and Vital Signs: Height 5 ft 1 in Weight 75.75 kg Vital Signs Temp Pulse Resp BP Pulse Ox O2 Del Method 06/26/22 08:24 97.6 F 81 16 152/78 H 100 Room Air Airway Mallampati Class: II (Slight overbite) TM Dist: >3cm Neck ROM: Limited (Extension OK) Loose/Missing/Broken Teeth: No (Denies broken or loose teeth) Heart: RRR Lungs: CTAB Assessment and Plan Assessment Anesthesia Assessment: Anesthesia Plan Discussed Final Anesthetic Review Family History of Problems with Anesthesia: No History of Problems with Anesthesia: No NPO: Yes ASA Class: III Final Preanesthetic Review: No Changes in Pt Med Stat, Meds/Allgs Chart Reviewed, Consent Obtained/Reviewed and Anes Risks/Benef Reviewed Patient Risk: Intermediate Procedure Risk: Low Assessment/Block/Sedation in SS: Assess/Block/Sedation-SS Anesthetic Plan Anesthetic Plan: GA Disposition: Standard PACU
[2022-06-26 08:24] VITALS: BP 152/78; PULSE 81; RESP 16; TEMP 36.4; O2SAT 100; BMI 30.6
--- NOTE | 2022-06-26 08:48 | MHC.SHP ---
Pre-Procedural Eval Section A Date of Service: 06/26/22 The patient is an INPATIENT: No Changes since office visit: Yes Patient answered all questions; No Cold of Flu in the past 2 weeks, No New Medical Problems and No Changes in Medication The History & Physical has been completed within 30 days and I have reviewed it.: Yes Section B Chief Complaint: Unspecified lump in the right breast, lower inner Allergies: Allergies Allergy/AdvReac Type Severity Reaction Status Date / Time Penicillins [PENICILLINS] Allergy Severe ANAPHYLAXIS, Verified 06/26/22 08:19 swelling streptomycin [STREPTOMYCIN] Allergy Severe ANAPHYLAXIS Verified 06/26/22 08:19 Plan Diagnosis/Plan: Unchanged I have reviewed the history and physical and performed a pertinent physical examination on my patient. No changes have occurred unless specified.
--- NOTE | 2022-06-26 08:50 | PC.NURSE ---
Verified with Clinton in pharmacy that correct dose for patient weight of 73.5 kg is vancomycin 1 gram.
[2022-06-26] MEDS: vancomycin HCL 1,000 MG in 0.9 % Sodium Chloride 250 ML 270 MG IV (08:54)
[2022-06-26] MEDS: Lactated Ringers 1,000 ML 100 ML IVCONT (08:55)
--- NOTE | 2022-06-26 09:42 | P.OP_ITS ---
Operative Note Operative Note Date of Service: 06/26/22 Narrative: Preoperative diagnosis: Right breast mass Postoperative diagnosis: same Procedure: right breast lumpectomy Surgeon: Mitesh Heaton MD Biomathematician: Chloé Mcdermott PA-C, VALENTIN Abraham Anesthesia: general LMA Indications for procedure: 61-year-old female patient with a prior history left breast cancer now presenting with a palpable mass in the right breast at the 5 o'clock position. Mammogram and ultrasound were negative for suspicious findings however a palpable masses clearly identified this location measuring approximately 2 cm in diameter. Patient presents today for excision. Operative findings: Fatty lump the 5 o'clock position of the right breast Specimen: right breast lump Estimated blood loss: 2 mL Complications: none Procedure details: patient brought the OR placed in a supine position. After administering general anesthesia the patient's right breast was prepped with ChloraPrep and draped in a sterile fashion. A surgical time-out was called the consent confirmed. Patient received preoperative antibiotics and Venodyne boots were in place. Local anesthesia consisting of 0.5% Sensorcaine was then infiltrated in the 5 o'clock position and carried out through subcutaneous tissue. Incision of the made with a scalpel in a transverse fashion. This was carried out through subcutaneous tissue. Superior inferior skin flaps were then created. Electrocautery dissection was then used to dissect around the palpable mass. Fatty lump was identified at this time. Lesion was completely excised and sent to pathology for further examination. Wounds were then checked for hemostasis. Wounds were irrigated with saline solution and suctioned dry. Deep breast tissue and dermis were then reapproximated using interrupted 3-0 Polysorb sutures. Skin was closed using a running subcuticular 4-0 Polysorb suture. Steri-Strips, 2 x 2 gauze and Tegaderm were then applied. The patient tolerated the procedure well. Sponge, instrument, and needle counts reported as correct. The patient was transferred to PACU stable condition.
[2022-06-26 09:58] VITALS: BP 131/92; PULSE 93; RESP 16; TEMP 36.3; O2SAT 100
[2022-06-26 10:03] VITALS: BP 135/90; PULSE 88; RESP 16; O2SAT 100
[2022-06-26 10:08] VITALS: BP 145/91; PULSE 87; RESP 17; O2SAT 98
[2022-06-26 10:13] VITALS: BP 146/92; PULSE 82; RESP 17; O2SAT 100
[2022-06-26] MEDS: Ketorolac Tromethamine 30 MG/ML VIAL 15 MG IVPUSH (10:23)
[2022-06-26 10:28] VITALS: BP 148/77; PULSE 75; RESP 20; TEMP 36.2; O2SAT 100
[2022-06-26] MEDS: oxyCODONE HCl Immed Release 5 MG TABLET PO (10:50)
== END 2022-06-26 11:13 | disposition home or self-care (01) ==
PROVIDERS: PCP Internal Medicine; Visit Provider Surgery
PROC: (CPT 19301; principal; 2022-06-26 09:10)
DX: N63.14 Unspecified lump in the right breast, lower inner quadrant (principal); C50.512 Malignant neoplasm of lower-outer quadrant of left female breast; C77.3 Secondary and unspecified malignant neoplasm of axilla and upper limb lymph nodes; Z17.0 Estrogen receptor positive status [ER+]; Z92.21 Personal history of antineoplastic chemotherapy; Z92.3 Personal history of irradiation; Z79.810 Long term (current) use of selective estrogen receptor modulators (SERMs); Z79.899 Other long term (current) drug therapy; Z88.0 Allergy status to penicillin; Z88.1 Allergy status to other antibiotic agents
CPT/HCPCS: 19301; 88307; J1100; J1885; J2250; J2370; J2405; J2795; J3010; J3370

== ENCOUNTER 2022-07-01 08:39 | Outpatient (REF) | payer OTHER, SELFPAY ==
--- NOTE | ~2022-07-01 | US_ITS ---
EXAMINATION: US RETROPERITONEAL LIMITED (RENAL ONLY) CLINICAL INFORMATION: Calculus of kidney. COMPARISON: Ultrasound abdomen complete 02/13/2022. Ultrasound retroperitoneal limited (renal only) 03/23/2021. CT abdomen and pelvis 01/11/2019. TECHNIQUE: Real-time imaging of the kidneys. FINDINGS: RIGHT KIDNEY: 10.7 x 3.2 x 6 cm (SAG x AP x TRV). The kidney is normal in size, contour, and echogenicity. Renal cortical thickness is normal. No renal calculi or hydronephrosis. There is a 2.3 x 1.8 x 2.3 cm simple cyst in the mid to lower pole, for which no imaging follow-up is routinely recommended. LEFT KIDNEY: 9.9 x 4.8 x 5.2 cm (SAG x AP x TRV). The kidney is normal in size, contour, and echogenicity. Renal cortical thickness is normal. No calculi or focal parenchymal lesions. No hydronephrosis. US/US renal BI IMPRESSION: No nephrolithiasis or hydronephrosis.
== END 2022-07-01 08:40 | disposition home or self-care (01) ==
LOC: HO.US 08:39
PROVIDERS: Visit Provider Urology
DX: N20.0 Calculus of kidney (principal); N28.1 Cyst of kidney, acquired
CPT/HCPCS: 76775

== ENCOUNTER 2022-08-21 15:09 | Outpatient (REF) | payer OTHER, SELFPAY ==
--- NOTE | ~2022-08-21 | XR_ITS ---
EXAMINATION: XR CHEST CLINICAL INFORMATION: Pleurisy COMPARISON: None TECHNIQUE: 2 views of the chest were obtained. FINDINGS: No significant abnormality is noted involving the heart, lungs, mediastinum, bony thorax or soft tissues. XR/XR chest 2V IMPRESSION: Unremarkable chest examination.
== END 2022-08-21 15:10 | disposition home or self-care (01) ==
LOC: HO.HMGCX 15:09
PROVIDERS: PCP Internal Medicine; Visit Provider Internal Medicine
DX: R09.1 Pleurisy (principal)
CPT/HCPCS: 71046

== ENCOUNTER → 2022-09-05 09:07 | Outpatient (BNVA) | payer OTHER, SELFPAY | PROVIDERS: PCP Internal Medicine; Visit Provider Surgery | DX: R10.30 Lower abdominal pain, unspecified (principal); K80.20 Calculus of gallbladder without cholecystitis without obstruction; N63.10 Unspecified lump in the right breast, unspecified quadrant; Z85.3 Personal history of malignant neoplasm of breast; Z92.21 Personal history of antineoplastic chemotherapy; Z92.3 Personal history of irradiation | CPT/HCPCS: 99212 ==

== ENCOUNTER → 2022-09-17 09:45 | Outpatient (BNVA) | payer OTHER, SELFPAY | PROVIDERS: PCP Internal Medicine; Visit Provider Urology | DX: N28.1 Cyst of kidney, acquired (principal) | CPT/HCPCS: 99212 ==

== ENCOUNTER 2022-10-31 07:58 | Outpatient (REF) | payer OTHER, SELFPAY ==
[2022-10-31 08:15] LABS: MANUAL DIFF FLAG NO
[2022-10-31 08:53] LABS: Basophils Absolute Auto 0.1 X10*3/uL (0.0-0.2); Basophils Percent Auto 0.6 % (0-2); Eosinophils Absolute Auto 0.2 X10*3/uL (0.0-0.4); Eosinophils Percent Auto 2.6 % (0-4); Hematocrit 37.4 % (37.0-47.0); Hemoglobin 12.3 g/dl (12.0-16.0); Imm Gran Abs Auto 0.02 X10*3/uL (0.00-0.03); Imm Gran Pct Auto 0.3 % (0.0-0.4); Lymphocytes Absolute Auto 3.2 X10*3/uL (1.2-4.9); Lymphocytes Percent Auto 39.7 % (20-40); Mean Corpuscular HGB Conc 32.9 g/dl (31.0-35.0); Mean Corpuscular Volume 91.2 fL (80.0-98.0); Mean Platelet Volume 9.8 fL (9.4-12.3); Monocytes Absolute Auto 0.6 X10*3/uL (0.1-1.2); Monocytes Percent Auto 7.8 % (2-11); Neutrophils Absolute Auto 3.9 x10*3/uL (2.0-8.3); Platelet Count 280 X10*3/uL (160-400); Red Cell Distribution Width 12.7 % (11.0-16.0)
[2022-10-31 09:27] LABS: Alanine Aminotransferase 16 U/L (0-31); Albumin Level 3.9 g/dL (3.5-5.0); Alkaline Phosphatase 55 U/L (39-117); Anion Gap 13 (12-20); Aspartate Amino Transferase 17 U/L (5-31); Bilirubin Total 0.7 mg/dL (0.0-1.0); Blood Urea Nitrogen 12 mg/dL (9-16); Calcium 9.1 mg/dL (8.4-10.2); Carbon Dioxide 26 mmol/L (22-29); Chloride 105 mmol/L (96-108); Estimated Glomerular Filt Rate > 60; Glucose Random 100 mg/dL (60-115); Potassium 4.7 mmol/L (3.3-5.1); Sodium 139 mmol/L (135-145); Total Protein 7.6 g/dL (6.5-8.0)
[2022-10-31 09:52] LABS: Vitamin D 25-OH Total 41.1 ng/mL (>30)
[2022-10-31 13:22] LABS: Cholesterol 215 mg/dL; HDL Cholesterol 48 mg/dL; LDL Cholesterol Calculated 133 mg/dl; Triglycerides 170 mg/dL
[2022-10-31 13:36] LABS: Thyroid Stimulating Hormone 2.34 uIU/mL (0.32-4.0)
[2022-11-02 08:59] LABS: CA 27.29 29 U/mL (<38)
== END 2022-10-31 07:59 | disposition home or self-care (01) ==
LOC: HO.LAB 07:58
PROVIDERS: PCP Internal Medicine; Visit Provider Internal Medicine Medical Oncology
DX: C50.919 Malignant neoplasm of unspecified site of unspecified female breast (principal)
CPT/HCPCS: 36415; 80053; 80061; 82306; 84443; 85025; 86300

== ENCOUNTER 2022-11-05 12:01 | Outpatient (REF) | payer OTHER, SELFPAY ==
--- NOTE | ~2022-11-05 | XR_ITS ---
EXAMINATION: XR CHEST CLINICAL INFORMATION: Cough COMPARISON: 08/21/2022 TECHNIQUE: 2 views of the chest were obtained. FINDINGS: The lungs are well expanded. There is no focal consolidation, edema, or effusion. No pneumothorax. The cardiomediastinal silhouette is within normal limits. No acute osseous abnormality. XR/XR chest 2V IMPRESSION: Clear lungs.
== END 2022-11-05 12:02 | disposition home or self-care (01) ==
LOC: HO.HMGCX 12:01
PROVIDERS: PCP Internal Medicine; Visit Provider Internal Medicine
DX: R05.9 Cough, unspecified (principal)
CPT/HCPCS: 71046

== ENCOUNTER → 2022-12-12 09:29 | Outpatient (BNVA) | payer OTHER, SELFPAY | PROVIDERS: PCP Internal Medicine; Visit Provider Internal Medicine Gastroenterology | DX: R10.13 Epigastric pain (principal); R10.10 Upper abdominal pain, unspecified; K52.9 Noninfective gastroenteritis and colitis, unspecified; K80.20 Calculus of gallbladder without cholecystitis without obstruction; Z86.010 Personal history of colon polyps | CPT/HCPCS: 99212 ==

== ENCOUNTER 2022-12-30 10:49 | Outpatient (REF) | payer OTHER, SELFPAY ==
--- NOTE | ~2022-12-30 | MM_ITS ---
EXAMINATION: MM SCREENING DIGITAL BREAST TOMOSYNTHESIS, BILATERAL CLINICAL INFORMATION: Left breast IDC status post lumpectomy 2017. Due for yearly. COMPARISON: Mammography: 05/01/2022, 11/29/2021, 11/22/2020, 11/22/2019, 10/06/2018, 12/12/2017, 10/15/2017, 10/23/2016, 10/04/2016, 09/17/2016. TECHNIQUE: Digital breast tomosynthesis is performed in both the craniocaudal and mediolateral oblique views along with computer-aided detection (CAD). Synthesized 2D images are generated from the tomosynthesis. Additional left MLO view is provided. FINDINGS: There are scattered areas of fibroglandular density (ACR BI-RADS breast composition Category b). Breast tissue composition borders on heterogeneously dense. There are post therapy changes left breast again noted. Neither breast shows significant mass or architectural abnormality or abnormal calcifications. No developing density. Again, there are scattered bilateral round and numerous vascular calcifications. There is mild scarring left axilla. No significant changes from prior studies. MM/MM tomosynthesis screening BI IMPRESSION: No significant changes from prior exams. Post therapy changes left breast. ASSESSMENT: BI-RADS 2: Benign RECOMMENDATION: Routine annual mammography screening. This patient's information was entered into a reminder system with a target due date for their next mammogram.
== END 2022-12-30 10:50 | disposition home or self-care (01) ==
LOC: HO.MAMMO 10:49
PROVIDERS: PCP Internal Medicine; Visit Provider Surgery
DX: Z12.31 Encounter for screening mammogram for malignant neoplasm of breast (principal)
CPT/HCPCS: 77063; 77067

== ENCOUNTER → 2023-01-17 13:14 | Outpatient (BNVA) | payer OTHER, SELFPAY | PROVIDERS: PCP Internal Medicine; Visit Provider Hospitalist | DX: J18.9 Pneumonia, unspecified organism (principal); R07.9 Chest pain, unspecified; C50.912 Malignant neoplasm of unspecified site of left female breast | CPT/HCPCS: 99202 ==

== ENCOUNTER 2023-02-05 06:43 | Outpatient (REF) | payer OTHER, SELFPAY ==
--- NOTE | ~2023-02-05 | CT_ITS ---
EXAMINATION: CT CHEST WITHOUT CONTRAST CLINICAL INFORMATION: Chest pain COMPARISON: Previous chest x-ray October 2022 TECHNIQUE: Multidetector volumetric CT imaging of the chest was done. Axial MIP volume rendering provided. Sagittal and coronal reformatted images were obtained. This CT examination was performed using dose optimization techniques as appropriate, variously including the following: *Automated exposure control *Adjustment of mA and/or kV according to patient size (this includes techniques or standardized protocols for targeted exams where dose is matched to indication/reason for exam; i.e. extremities or head) *Use of iterative reconstruction technique DLP: 139 mGy-cm FINDINGS: LUNGS: Scarring at the left lung apex. Increased peripheral reticular markings in the anterior left upper lobe probably related to previous chest wall radiation. 4 mm calcified right upper lobe nodule axial image 255 series 5 and 3 mm calcified right upper lobe nodule axial image 259 series 5. 2 mm peripheral or subpleural right middle lobe nodule adjacent to the major fissure axial image 281 series 5. 5 mm peripheral or subpleural right middle lobe nodule axial image 311 series 5. 3 mm peripheral or subpleural right middle lobe nodule axial image 3:15 series 5. 2 mm calcified right middle lobe nodule axial image 376 series 5 3 mm right lower lobe nodule axial image 435 series 5. The lungs are otherwise clear. MEDIASTINUM: The mediastinum is normal. CORONARY ARTERY CALCIFICATION: Moderate PLEURA: There is no pleural effusion. No pleural mass or thickening. AXILLA: Posttreatment changes to the left breast. There is a triangular-shaped 1 cm density with associated surgical clips in the deep left breast abutting the chest wall. No prior CT images are available for comparison. Correlation with the mammogram findings recommended. No enlarged axillary lymph nodes. UPPER ABDOMEN: Small low-attenuation liver lesions high in the dome of the liver axial image 45 series 3. These are difficult to characterize due to small size and lack of contrast. There may be fatty infiltration of the liver. OSSEOUS STRUCTURES: Degenerative changes of the spine. CT/CT chest wo IV con IMPRESSION: Probable of posttreatment changes to the left lung from previous chest wall radiation. Small calcified and noncalcified pulmonary nodules or micronodules. According to the UPDATED 2017 Fleischner Society recommendations, the advised follow-up imaging for less than 6 mm solid nodule: Low risk, no chest CT follow-up and high risk, optional chest CT follow-up in one year. Posttreatment changes to the left breast. 1 cm heterogeneous density deep in the left breast extending to the chest wall. This may represent posttreatment changes. Correlation with mammogram and physical exam recommended. Fatty liver. 2 small low-attenuation liver lesions difficult to characterize due to small size and lack of IV contrast. Fleischner guidelines were followed.
== END 2023-02-05 06:44 | disposition home or self-care (01) ==
LOC: HO.CT 06:43
PROVIDERS: PCP Internal Medicine; Visit Provider Hospitalist
DX: R07.9 Chest pain, unspecified (principal); J18.9 Pneumonia, unspecified organism; C50.912 Malignant neoplasm of unspecified site of left female breast
CPT/HCPCS: 71250

== ENCOUNTER 2023-02-10 13:00 | Outpatient (RCR) | payer OTHER, SELFPAY ==
--- NOTE | 2023-02-10 16:20 | MHC.PT.DC ---
[facility] [place] Office [place] Office [place] Office [address] [phone] F: [phone] F: [phone] F: [phone] F: [phone] Physical Therapy Discharge Report Diagnosis: R shoulder pain, cervicalgia. Date of Surgery: Date of Evaluation: 12/31/22 Date of Discharge: 02/10/23 Treatments to Date: 12 Cancellations to Date: No Shows to Date: Discharge Status: Achieved Goals Improved Function Independent with HEP Discharge Summary: 6.12: Jose has been an active participant in her therapy in and out of the clinic; she has met many of her therapeutic goals and is improved of her pain and function; she persists with some ache and soreness and is educated on chronic condition management. Her shoulder is much improved of pain, ROM and function. Neck outcome measure improved from 72% to 46% disability which is a significant improvement. Electronically signed by: Tj Rivera PT. Please sign and return to therapist. Thank you for your referral.
== END 2023-02-10 16:18 | disposition home or self-care (01) ==
LOC: HO.PTCHIC 13:00
PROVIDERS: PCP Internal Medicine; Visit Provider Internal Medicine
DX: M25.511 Pain in right shoulder (principal); M54.2 Cervicalgia
CPT/HCPCS: 97110; 97140; 97162

== ENCOUNTER → 2023-03-06 09:43 | Outpatient (BNVA) | payer OTHER, SELFPAY | PROVIDERS: PCP Internal Medicine; Visit Provider Surgery | DX: R10.13 Epigastric pain (principal); C50.919 Malignant neoplasm of unspecified site of unspecified female breast | CPT/HCPCS: 99212 ==

== ENCOUNTER 2023-03-17 09:52 | Outpatient (AMB) | payer OTHER, SELFPAY ==
[2023-03-17 09:55] VITALS: BP 112/68; PULSE 103; TEMP 36.2; O2SAT 97
--- NOTE | 2023-03-17 09:55 | MHC.OFFVIS ---
Intake Vital Signs 03/17/23 09:55 Weight 168 lb 10.458 oz BP 112/68 Blood Pressure Location Rt brachial Position Sitting Pulse 103 H Pulse Source Pulse Oximeter Temp 97.2 F Temp Source Temporal Artery Scan Pulse Oximetry (%) 97 Oxygen Delivery Method Room Air Intake Visit Reasons: Knee OA Allergies Penicillins [PENICILLINS] Allergy (Severe, Verified 03/17/23 09:57) ANAPHYLAXIS, swelling streptomycin [STREPTOMYCIN] Allergy (Severe, Verified 03/17/23 09:57) ANAPHYLAXIS Medication List - Last Reconciled 03/17/23 by Isai Wilson MD [bath stole As directed] cholecalciferol (vitamin D3) 25 mcg PO DAILY [compression stockings As directed] gabapentin 300 mg PO BEDTIME naproxen 500 mg PO BID 90 days omeprazole 20 mg PO BID 90 days raloxifene 60 mg PO DAILY HPI HPI Comments History of Present Illness Details This is a 62-year-old female with a past medical history of breast cancer s/p chemoradiation, tamoxifen for 5 years, recently changed to Raloxifen, history of osteoporosis was on alendronate for 5 years, recently discontinued who presents for evaluation of diffuse pain. Patient was evaluated by Orthopedics and Pain Management for bilateral knee osteoarthritis. She has received cortisone and gel injections without much improvement. Orthopedics recommended arthroplasty but patient did not want to proceed. Pain management suggested a procedure but patient also did not want to proceed. Patient continues to have pain in her knees, she also has pain in her hands, wrists, ankles. She has pain and morning stiffness of her hands lasting a few hours. Patient takes naproxen 500 mg 1 tablet every 1-2 days with some improvement. She is unaware of any family history of autoimmune rheumatic disease. She has tingling and numbness of the tips of her fingers and her toes. [facility] Medical History (Updated 03/17/23 @ 11:07 by Isai Wilson MD) Back pain Breast cancer, left (~10/2016) Breast lump on right side at 5 o'clock position Chest pain Chronic cough History of colon polyps Neuropathy Pneumonitis Spondylosis Vaginal yeast infection Surgical History History of lumpectomy of right breast (06/26/22) Hx of colonoscopy (~10/2018) Hx of vein stripping S/P breast lumpectomy Family History Mother No problems noted. Father No problems noted. Other No family history of cancer Social History Household Members: Family and Children Housing: House Are you a primary child care team lead to a significant other at home: No Do you presently have visiting nurse or other home services: No Alcohol intake: never Patient Tobacco Use Status: Never used Tobacco e-Cigarette/Vaping Use: Never Used service: No Current occupational status: disabled Current occupation: rt handed Cognitive needs: No Hearing needs: No Vision needs: Yes Female Reproductive History Menstrual Age of Menarche: 15 Review of Systems ENT Reports neck pain Musc Reports back pain, Reports arthralgias, Reports joint swelling, Reports limited range of motion, Reports neck pain, Reports numbness, Reports stiffness and Reports tingling Neuro Reports numbness and Reports tingling Physical Exam Vital Signs: Last Vital Signs Temp 97.2 F 03/17/23 09:55 Pulse 103 H 03/17/23 09:55 BP 112/68 03/17/23 09:55 Pulse Ox 97 03/17/23 09:55 Oxygen Delivery Method Room Air 03/17/23 09:55 Const General: cooperative, healthy appearing and comfortable Nutritional Appearance: obese Orientation/consciousness: patient oriented x3 Limitations: no limitations HEENT Head: Yes normocephalic and Yes atraumatic Mouth: moist mucous membranes Resp Effort & Inspection: normal respiratory effort and able to speak in complete sentences Cardio Rate: regular rate Neuro General: patient oriented x3 Extrem Other: Mild lymphedema of left upper extremity Bilateral wrist tenderness and pain with full flexion and extension Bilateral positive MCP squeeze test Bilateral diffuse PIP tenderness without swelling Pain with full flexion and extension of elbows Mild bilateral knee warmth Bilateral ankle tenderness to palpation Bilateral positive MTP squeeze test Assessment & Plan Assessment & Plan (1) Polyarthralgia: Code(s): M25.50 - Pain in unspecified joint Plan: This is a 62-year-old female who presents for evaluation of diffuse joint pain. Patient has some features of inflammatory arthritis versus osteoarthritis. Will order comprehensive serology to screen for underlying autoimmune rheumatic disease. Check x-rays of involved joints. Start prednisone therapeutic trial. Plan I spent 36 minutes reviewing patient's chart, evaluating patient, ordering diagnostic workup, counseling patient and documenting in the chart Orders: Orders XR hand wrist LT Today M06.9 - Rheumatoid arthritis, unspecified XR hand wrist RT Today M06.9 - Rheumatoid arthritis, unspecified XR ankle LT min 3V Today M06.9 - Rheumatoid arthritis, unspecified XR ankle RT min 3V Today M06.9 - Rheumatoid arthritis, unspecified XR foot LT min 3V Today M06.9 - Rheumatoid arthritis, unspecified XR foot RT min 3V Today M06.9 - Rheumatoid arthritis, unspecified Protein Creatinine Ratio, Ur Today M32.9 - Systemic lupus erythematosus, unspecified KAYLA Reflex Titer and Pattern Today M32.9 - Systemic lupus erythematosus, unspecified Complement C3 Today M32.9 - Systemic lupus erythematosus, unspecified Complement C4 Today M32.9 - Systemic lupus erythematosus, unspecified Anti DNA DS Antibody Today M32.9 - Systemic lupus erythematosus, unspecified DNA Double Stranded-Crithidia Today M32.9 - Systemic lupus erythematosus, unspecified Anti Extractable Nuclear Ag Today M32.9 - Systemic lupus erythematosus, unspecified Sjogren's Antibodies Today M32.9 - Systemic lupus erythematosus, unspecified UA w Microscopic Today M32.9 - Systemic lupus erythematosus, unspecified Rheumatoid Factor Today M06.9 - Rheumatoid arthritis, unspecified Cyclic Citrullinated Peptide Today M06.9 - Rheumatoid arthritis, unspecified Complete Blood Count Auto Diff Today M06.9 - Rheumatoid arthritis, unspecified Comprehensive Met. Panel Today M06.9 - Rheumatoid arthritis, unspecified C Reactive Protein Today M06.9 - Rheumatoid arthritis, unspecified Hepatitis A,B,C Profile Today Z11.59 - Encounter for screening for other viral diseases T Spot TB Today Z11.7 - Encounter for testing for latent tuberculosis infection Erythrocyte Sedimentation Rate Today M06.9 - Rheumatoid arthritis, unspecified Medications: New prednisone Takes 2 tabs daily for 1 week then 1 tab daily for 2 weeks then stop 28 tabs 0RF Coding Level of Care Code Est Pt Level 4 (96463) Diagnoses Polyarthralgia M25.50
== END 2023-03-17 10:56 | disposition home or self-care (01) ==
PROVIDERS: PCP Internal Medicine; Visit Provider Student in an Organized Health Care Education/Training Program
DX: M25.50 Pain in unspecified joint (principal)
CPT/HCPCS: 99214

== ENCOUNTER 2023-03-17 09:52 | Outpatient (REF) | payer OTHER, SELFPAY ==
--- NOTE | ~2023-03-17 | XR_ITS ---
History: Rheumatoid arthritis. Pain. Exams: Bilateral ankles 3 views each, bilateral feet 3 views each. Bilateral hands 3 views each. FINDINGS: No previous. Bilateral ankle imaging demonstrates preservation of the ankle mortise without narrowing. Minimal spurring but no erosive arthritic changes noted. Both mid and forefoot joint spaces appear normal. No evidence of any erosive arthritis. Joint spaces preserved. Normal bone mineralization. No soft tissue abnormality. Incidental calcaneal plantar spurring. This is of moderate severity symmetrically bilaterally. Bilateral hand imaging demonstrates normal bone mineralization. No evidence of erosive arthropathy. Joint spaces preserved. No focal lesion. Mild spurring about the distal interphalangeal joints consistent with osteoarthritis. XR/XR foot LT min 3V IMPRESSION: No evidence of any erosive arthropathy. Calcaneal plantar spurring bilaterally. Mild osteoarthritic changes distal interphalangeal joints as above.
--- NOTE | ~2023-03-17 | XR_ITS ---
History: Rheumatoid arthritis. Pain. Exams: Bilateral ankles 3 views each, bilateral feet 3 views each. Bilateral hands 3 views each. FINDINGS: No previous. Bilateral ankle imaging demonstrates preservation of the ankle mortise without narrowing. Minimal spurring but no erosive arthritic changes noted. Both mid and forefoot joint spaces appear normal. No evidence of any erosive arthritis. Joint spaces preserved. Normal bone mineralization. No soft tissue abnormality. Incidental calcaneal plantar spurring. This is of moderate severity symmetrically bilaterally. Bilateral hand imaging demonstrates normal bone mineralization. No evidence of erosive arthropathy. Joint spaces preserved. No focal lesion. Mild spurring about the distal interphalangeal joints consistent with osteoarthritis. XR/XR ankle RT min 3V IMPRESSION: No evidence of any erosive arthropathy. Calcaneal plantar spurring bilaterally. Mild osteoarthritic changes distal interphalangeal joints as above.
--- NOTE | ~2023-03-17 | XR_ITS ---
History: Rheumatoid arthritis. Pain. Exams: Bilateral ankles 3 views each, bilateral feet 3 views each. Bilateral hands 3 views each. FINDINGS: No previous. Bilateral ankle imaging demonstrates preservation of the ankle mortise without narrowing. Minimal spurring but no erosive arthritic changes noted. Both mid and forefoot joint spaces appear normal. No evidence of any erosive arthritis. Joint spaces preserved. Normal bone mineralization. No soft tissue abnormality. Incidental calcaneal plantar spurring. This is of moderate severity symmetrically bilaterally. Bilateral hand imaging demonstrates normal bone mineralization. No evidence of erosive arthropathy. Joint spaces preserved. No focal lesion. Mild spurring about the distal interphalangeal joints consistent with osteoarthritis. XR/XR hand wrist RT IMPRESSION: No evidence of any erosive arthropathy. Calcaneal plantar spurring bilaterally. Mild osteoarthritic changes distal interphalangeal joints as above.
--- NOTE | ~2023-03-17 | XR_ITS ---
History: Rheumatoid arthritis. Pain. Exams: Bilateral ankles 3 views each, bilateral feet 3 views each. Bilateral hands 3 views each. FINDINGS: No previous. Bilateral ankle imaging demonstrates preservation of the ankle mortise without narrowing. Minimal spurring but no erosive arthritic changes noted. Both mid and forefoot joint spaces appear normal. No evidence of any erosive arthritis. Joint spaces preserved. Normal bone mineralization. No soft tissue abnormality. Incidental calcaneal plantar spurring. This is of moderate severity symmetrically bilaterally. Bilateral hand imaging demonstrates normal bone mineralization. No evidence of erosive arthropathy. Joint spaces preserved. No focal lesion. Mild spurring about the distal interphalangeal joints consistent with osteoarthritis. XR/XR ankle LT min 3V IMPRESSION: No evidence of any erosive arthropathy. Calcaneal plantar spurring bilaterally. Mild osteoarthritic changes distal interphalangeal joints as above.
--- NOTE | ~2023-03-17 | XR_ITS ---
History: Rheumatoid arthritis. Pain. Exams: Bilateral ankles 3 views each, bilateral feet 3 views each. Bilateral hands 3 views each. FINDINGS: No previous. Bilateral ankle imaging demonstrates preservation of the ankle mortise without narrowing. Minimal spurring but no erosive arthritic changes noted. Both mid and forefoot joint spaces appear normal. No evidence of any erosive arthritis. Joint spaces preserved. Normal bone mineralization. No soft tissue abnormality. Incidental calcaneal plantar spurring. This is of moderate severity symmetrically bilaterally. Bilateral hand imaging demonstrates normal bone mineralization. No evidence of erosive arthropathy. Joint spaces preserved. No focal lesion. Mild spurring about the distal interphalangeal joints consistent with osteoarthritis. XR/XR hand wrist LT IMPRESSION: No evidence of any erosive arthropathy. Calcaneal plantar spurring bilaterally. Mild osteoarthritic changes distal interphalangeal joints as above.
--- NOTE | ~2023-03-17 | XR_ITS ---
History: Rheumatoid arthritis. Pain. Exams: Bilateral ankles 3 views each, bilateral feet 3 views each. Bilateral hands 3 views each. FINDINGS: No previous. Bilateral ankle imaging demonstrates preservation of the ankle mortise without narrowing. Minimal spurring but no erosive arthritic changes noted. Both mid and forefoot joint spaces appear normal. No evidence of any erosive arthritis. Joint spaces preserved. Normal bone mineralization. No soft tissue abnormality. Incidental calcaneal plantar spurring. This is of moderate severity symmetrically bilaterally. Bilateral hand imaging demonstrates normal bone mineralization. No evidence of erosive arthropathy. Joint spaces preserved. No focal lesion. Mild spurring about the distal interphalangeal joints consistent with osteoarthritis. XR/XR foot RT min 3V IMPRESSION: No evidence of any erosive arthropathy. Calcaneal plantar spurring bilaterally. Mild osteoarthritic changes distal interphalangeal joints as above.
[2023-03-17 11:32] LABS: MANUAL DIFF FLAG NO
[2023-03-17 12:35] LABS: Appearance Urine Clear; Color Urine Yellow; Glucose Urine UA Negative (Negative); Leukocyte Esterase Urine Negative (Negative); Nitrite Urine Negative (Negative); Specific Gravity - Urine 1.015 (1.005-1.025); Urine Blood Negative (Negative); Urine Ketones Negative (Negative); Urine Protein Negative (Neg-Trace)
[2023-03-17 12:39] LABS: Bacteria Urine 1+ (None Seen); Hyaline Casts Urine 0-2 /LPF (0-2); RBC Urine 0-2 /HPF (0-2); WBC Urine 0-5 /HPF (0-5)
[2023-03-17 12:45] LABS: Basophils Absolute Auto 0.1 X10*3/uL (0.0-0.2); Basophils Percent Auto 0.6 % (0-2); Eosinophils Absolute Auto 0.2 X10*3/uL (0.0-0.4); Eosinophils Percent Auto 2.9 % (0-4); Hematocrit 35.9 % (37.0-47.0); Hemoglobin 11.9 g/dl (12.0-16.0); Imm Gran Abs Auto 0.01 X10*3/uL (0.00-0.03); Imm Gran Pct Auto 0.1 % (0.0-0.4); Lymphocytes Absolute Auto 3.4 X10*3/uL (1.2-4.9); Lymphocytes Percent Auto 41.2 % (20-40); Mean Corpuscular HGB Conc 33.1 g/dl (31.0-35.0); Mean Corpuscular Hemoglobin 30.9 pg (27.0-33.0); Mean Corpuscular Volume 93.2 fL (80.0-98.0); Mean Platelet Volume 10.3 fL (9.4-12.3); Monocytes Absolute Auto 0.9 X10*3/uL (0.1-1.2); Monocytes Percent Auto 10.9 % (2-11); Neutrophils Absolute Auto 3.7 x10*3/uL (2.0-8.3); Neutrophils Percent Auto 44.3 % (45-73); Platelet Count 232 X10*3/uL (160-400); Red Blood Count 3.85 X10*6/uL (4.20-5.50); White Blood Count 8.3 X10*3/uL (4.8-10.8)
[2023-03-17 13:20] LABS: Rheumatoid Factor < 13.0 IU/mL (<15.0)
[2023-03-17 13:21] LABS: Alanine Aminotransferase 26 U/L (0-31); Albumin Level 4.1 g/dL (3.5-5.0); Alkaline Phosphatase 83 U/L (39-117); Anion Gap 14 (12-20); Aspartate Amino Transferase 21 U/L (5-31); Bilirubin Total 0.3 mg/dL (0.0-1.0); Blood Urea Nitrogen 13 mg/dL (9-16); C Reactive Protein 0.63 mg/dL (< or = 0.50); Calcium 9.2 mg/dL (8.4-10.2); Carbon Dioxide 22 mmol/L (22-29); Chloride 104 mmol/L (96-108); Estimated Glomerular Filt Rate > 60; Glucose Random 104 mg/dL (60-115); Potassium 4.4 mmol/L (3.3-5.1); Sodium 136 mmol/L (135-145); Total Protein 7.8 g/dL (6.5-8.0)
[2023-03-17 13:29] LABS: Erythrocyte Sedimentation Rate 23 MM/HR (0-20)
[2023-03-17 13:36] LABS: Total Protein Urine Random < 7 mg/dL (<12)
[2023-03-18 05:49] LABS: HBS Num1 0.04 mIU/mL (0-7.99); HBc Num1 0.15 S/CO (0.00-0.79); HBsAGNum1 0.33 S/CO (0.00-0.99); Hepatitis A Antibody IgM 0.18 Index (0-0.79); Hepatitis B Core Antibody Nonreactive (Nonreactive); Hepatitis B Surface Antigen Negative (Negative); ~HepC Num1 0.08 S/CO (0.00-0.79); ~Hepatitis A Antibody IgM Nonreactive (Nonreactive); ~Hepatitis B Surface Antibody NONREACTIVE (Nonreactive); ~Hepatitis C Antibody Nonreactive (Nonreactive)
[2023-03-19 14:48] LABS: Cyclic Citrullinated Peptide <16 UNITS
[2023-03-19 18:12] LABS: Complement C3 165 mg/dL (83-193)
[2023-03-20 02:03] LABS: TS Negative Control Passed; TS Panel A 0; TS Panel B 0; TS Positive Control Passed; TSpotTB Negative (Negative)
[2023-03-20 17:08] LABS: Anti DNA DS Antibody <1 IU/mL; Antibody to SS-A Antigen <1.0 NEG AI (<1.0 NEG); Antibody to SS-B Antigen <1.0 NEG AI (<1.0 NEG); SM/Ribonucleoprotein Ab <1.0 NEG AI (<1.0 NEG); Smith Protein <1.0 NEG AI (<1.0 NEG)
[2023-03-21 13:47] LABS: Anti Nuclear Antibody Screen NEGATIVE (NEGATIVE)
[2023-03-25 12:54] LABS: DNAds, Crithidia Antibody Negative (Negative)
== END 2023-03-17 09:53 | disposition home or self-care (01) ==
LOC: HO.LAB 09:52
PROVIDERS: PCP Internal Medicine; Visit Provider Student in an Organized Health Care Education/Training Program
DX: Z11.7 Encounter for testing for latent tuberculosis infection (principal); Z11.59 Encounter for screening for other viral diseases; M32.9 Systemic lupus erythematosus, unspecified; M06.9 Rheumatoid arthritis, unspecified
CPT/HCPCS: 36415; 73110; 73130; 73610; 73630; 80053; 81001; 84156; 85025; 85652; 86038; 86140; 86160; 86200; 86225; 86235; 86255; 86431; 86481; 86704; 86706; 86709; 86803; 87340; 99212

== ENCOUNTER 2023-03-19 08:36 | Outpatient (REF) | payer OTHER, SELFPAY ==
--- NOTE | 2023-03-19 09:35 | PFT_ITS ---
FLOWS: 1. FEV1 70% of predicted at 1.65 L. 2. FVC 60% of predicted at 1.83 L. 3. FEV1 to FVC ratio of 0.90. 4. No bronchodilator response except in small to medium airways. LUNG VOLUMES: 1. Total lung capacity 71% of predicted at 3.41 L. 2. Residual volume 74% of predicted at 1.43 L. 3. Slow vital capacity 69% of predicted at 1.98 L. 4. Expiratory reserve volume 27% of predicted at 0.21 L. 5. Diffusion capacity is mildly decreased, diffusion capacity corrects to normal after adjustment for alveolar ventilation. IMPRESSION: Moderate restrictive ventilatory defect with no bronchodilator response except in small to medium airways. Decreased expiratory reserve volume suggests extrathoracic restriction, likely secondary to abdominal obesity. Combination of restrictive ventilatory defect with decreased diffusion capacity, suggests underlying primary parenchymal disease. Clinical correlation is advised. MD LENARD Zaragoza/MODL / [id number]
== END 2023-03-19 08:37 | disposition home or self-care (01) ==
LOC: HO.RESP 08:36
PROVIDERS: PCP Internal Medicine; Visit Provider Hospitalist
DX: R05.3 Chronic cough (principal)
CPT/HCPCS: 94060; 94727; 94729

== ENCOUNTER → 2023-03-19 09:35 | Outpatient (BNV) | payer OTHER, SELFPAY | PROVIDERS: PCP Internal Medicine; Visit Provider Internal Medicine Pulmonary Disease | DX: R05.3 Chronic cough (principal) | CPT/HCPCS: 94060; 94727; 94729 ==

== ENCOUNTER 2023-04-09 09:43 | Outpatient (AMB) | payer OTHER, SELFPAY ==
[2023-04-09 09:44] VITALS: BP 136/82; PULSE 93; O2SAT 97; BMI 31.0
--- NOTE | 2023-04-09 09:44 | MHC.PC.OV ---
Vital Signs 04/09/23 09:44 Height 5 ft 2 in Weight 169 lb 6 oz BMI 31.0 BP 136/82 Blood Pressure Location Lt brachial Position Sitting Pulse 93 Pulse Source Pulse Oximeter Pulse Oximetry (%) 97 Oxygen Delivery Method Room Air Intake Visit Reasons: Shoulder & neck pain ~ Overdue Follow Up Allergies Penicillins [PENICILLINS] Allergy (Severe, Verified 04/09/23 09:44) ANAPHYLAXIS, swelling streptomycin [STREPTOMYCIN] Allergy (Severe, Verified 04/09/23 09:44) ANAPHYLAXIS Medication List - Last Reconciled 04/09/23 by Adria Rubio MD [bath stole As directed] cholecalciferol (vitamin D3) 25 mcg PO DAILY [compression stockings As directed] gabapentin 300 mg PO BEDTIME naproxen 500 mg PO BID 90 days omeprazole 20 mg PO BID 90 days prednisone Takes 2 tabs daily for 1 week then 1 tab daily for 2 weeks then stop raloxifene 60 mg PO DAILY Tobacco use date assessed: 04/09/23 Dental Screening Dental Screen Date: 04/09/23 Did you have a dental visit in the last 12 months?: Yes Did you have a dental problem in the last 6 months where you did not have access to dental care?: No Was dental information given to patient?: No HPI Shoulder & neck pain ~ Overdue Follow Up HPI Details Patient is 62-year-old female came in today to talk about her neck pain radiating to left shoulder Going back looking at her x-ray done in 2020 patient has Moderate ventral spondylosis C2-C3 through C6-C7 disc levels. Explained to her that if she will flex her neck for prolonged beers of time reading a book or looking at telephone or any other activity she might start getting this pain because of pinching of nerve on left side. I would recommend to avoid prolonged flexion of neck If pain has started she may try a soft neck collar during the day for a week that might help. There is no weakness in her left arm she have a chronic neuropathy in her hand and feet and for that she is seeing a neurologist and is taking gabapentin already. Patient is also seeing a dry cell battery assembler at [facility] Medical History Back pain Breast cancer, left (~10/2016) Breast lump on right side at 5 o'clock position Chest pain Chronic cough History of colon polyps Neuropathy Pneumonitis Spondylosis Vaginal yeast infection Surgical History History of lumpectomy of right breast (06/26/22) Hx of colonoscopy (~10/2018) Hx of vein stripping S/P breast lumpectomy Family History Mother No problems noted. Father No problems noted. Other No family history of cancer Social History Household Members: Family and Children Housing: House Are you a primary nurse care manager to a significant other at home: No Do you presently have visiting nurse or other home services: No Alcohol intake: never Patient Tobacco Use Status: Never used Tobacco e-Cigarette/Vaping Use: Never Used service: No Current occupational status: disabled Current occupation: rt handed Cognitive needs: No Hearing needs: No Vision needs: Yes Female Reproductive History Menstrual Age of Menarche: 15 Questionnaire PHQ-9 Over the last 2 weeks, how often have you been bothered by any of the following problems? 1. Little interest or pleasure in doing things: several days 2. Feeling down, depressed, or hopeless: several days 3. Trouble falling or staying asleep, or sleeping too much: nearly every day 4. Feeling tired or having little energy: not at all 5. Poor appetite or overeating: not at all 6. Feeling bad about yourself - or that you are a failure or have let yourself or your family down: several days 7. Trouble concentrating on things, such as reading the newspaper or watching television: several days 8. Moving or speaking so slowly that other people could have noticed. Or the opposite - being so fidgety or restless that you have been moving around a lot more than usual: not at all 9. Thoughts that you would be better off or of hurting yourself in some way: not at all Total score: 7 Depression Screening Interpretation: Negative 25330 - PHQ-9 Billing: Yes Source: Developed by Drs. Andi Kim, Ashley Watson, Donovan Jones and colleagues, with an educational reji from [employer]. Thrive Questionnaire Date Thrive assessed: 04/09/23 I am a: Patient What is your living situation today?: I have a steady place to live Within the past 12 months, did the food you bought not last and you didn't have the money to get more?: Never true Within the past 12 months, did you worry whether your food would run out before you got money to buy more?: Often true Do you have trouble paying for medicines?: No Do you have trouble getting transportation to medical appointments?: No Do you have trouble paying your heating and electricity bill?: No Do you have trouble taking care of your child, family member or friend?: No Do you have trouble with day-to-day activities such as bathing, preparing meals, shopping, managing finances, etc.?: No Are you currently unemployed and looking for a job?: No Are you interested in more education?: No Please select the resources that you would like help with: Food AUDIT C Alcohol Use Questionnaire (AUDIT-C) 1. How often do you have a drink containing alcohol?: Never 3. How often do you have six or more drinks on one occasion?: Never Total Score: 0 Score Reviewed/Action Taken: Yes INOCENCIO-7 AMB Questionnaire INOCENCIO-7 Date INOCENCIO - 7 assessed: 04/09/23 Feeling nervous, anxious, or on edge: 1 = Several days Not being able to stop or control worryin = More than half the days Worrying too much about different things: 2 = More than half the days Trouble relaxin = More than half the days Being so restless that it is hard to sit still: 2 = More than half the days Becoming easily annoyed or irritable: 1 = Several days Feeling afraid as if something awful might happen: 2 = More than half the days Total INOCENCIO-7 score (0-4 normal; 5-9 mild; 10-14 moderate; 15-21 severe): 12 Source: Developed by Drs. Andi Kim, Ashley Watson, Donovan Jones and colleagues, with an educational reji from [employer]. INOCENCIO-7 Assessment Billing INOCENCIO-7 Assessment Tool: INOCENCIO-7 Assessment 68414 Review of Systems Const All systems reviewed & are unremarkable except as noted in HPI and below Physical exam (Primary Care) Vital Signs: Last Vital Signs Pulse 93 04/09/23 09:44 BP 136/82 04/09/23 09:44 Pulse Ox 97 04/09/23 09:44 Oxygen Delivery Method Room Air 04/09/23 09:44 BMI result Body Mass Index 31.0 Tobacco/Smoking Status: Tobacco use Status Tobacco use date assessed 04/09/23 04/09/23 09:46 Patient Tobacco Use Status Never used Tobacco 04/09/23 09:46 e-Cigarette/Vaping Use Never Used 04/09/23 09:46 PHQ-9: PHQ-9 Score PHQ-9: Total score 7 04/09/23 10:20 Depression Screening Interpretation: Negative Thrive Assessment: Date of Thrive Assessment Date Thrive assessed 04/09/23 04/09/23 10:20 Const General: no acute distress Orientation/consciousness: patient oriented x3 Eyes General: appearance normal, both eyes and all related structures Neck Other: Neck is supple, Pain radiating to words left shoulder from the base of neck Resp Effort & Inspection: normal respiratory effort and able to speak in complete sentences Auscultation: clear to auscultation bilaterally Neuro General: patient oriented x3 Psych Mental Status: mental status grossly normal Assessment and Plan Assessment & Plan (1) Radiculitis of left cervical region: Code(s): M54.12 - Radiculopathy, cervical region Plan Patient is 62-year-old female came in today to talk about her neck pain radiating to left shoulder Going back looking at her x-ray done in 2020 patient has Moderate ventral spondylosis C2-C3 through C6-C7 disc levels. Explained to her that if she will flex her neck for prolonged beers of time reading a book or looking at telephone or any other activity she might start getting this pain because of pinching of nerve on left side. I would recommend to avoid prolonged flexion of neck If pain has started she may try a soft neck collar during the day for a week that might help. There is no weakness in her left arm she have a chronic neuropathy in her hand and feet and for that she is seeing a neurologist and is taking gabapentin already. Patient is also seeing a dry cell battery assembler at [facility], and naproxen was prescribed along with a course of prednisone Medications: Discontinued prednisone Discontinued Reason: Patient Completed Course Takes 2 tabs daily for 1 week then 1 tab daily for 2 weeks then stop 28 tabs 0RF Coding Level of Care Code Est Pt Level 3 (19282) Diagnoses Radiculitis of left cervical region M54.12 Additional Codes INOCENCIO-7 Assessment Billing - INOCENCIO-7 Assessment Tool: INOCENCIO-7 Assessment [id number] ([id number])
== END 2023-04-09 10:59 | disposition home or self-care (01) ==
PROVIDERS: PCP Internal Medicine; Visit Provider Internal Medicine
DX: M54.12 Radiculopathy, cervical region (principal)
CPT/HCPCS: 99213

== ENCOUNTER 2023-04-16 08:31 | Outpatient (AMB) | payer OTHER, SELFPAY ==
[2023-04-16 09:07] VITALS: BP 128/72; PULSE 83; O2SAT 99; BMI 31.0
--- NOTE | 2023-04-16 09:07 | MHC.OFFVIS ---
Intake Vital Signs 04/16/23 09:07 Height 5 ft 2 in Weight 169 lb 5.04 oz BMI 31.0 BP 128/72 Blood Pressure Location Rt brachial Position Sitting Pulse 83 Pulse Source Pulse Oximeter Pulse Oximetry (%) 99 Oxygen Delivery Method Room Air Intake Visit Reasons: Cough Online Content Coordinator Required: No Allergies Penicillins [PENICILLINS] Allergy (Severe, Verified 04/16/23 09:14) ANAPHYLAXIS, swelling streptomycin [STREPTOMYCIN] Allergy (Severe, Verified 04/16/23 09:14) ANAPHYLAXIS HPI HPI Comments History of Present Illness Details The patient is a 62 year woman with a known history of breast cancer back in 2017 status post radiation and chemotherapy. 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 She was followed closely by Pulmonary. Patient had been in her usual state health for the until the last several months she started developing worsening cough. She required multiple courses of antibiotics with partial resolution. The patient was having initially productive splenic. Now is settle down to a nonproductive cough. [id number] severity. She does have any inhaler a rescue inhaler that she is using the past and recently started on Advair which has helped her. She is complaining that months. She did have an x-ray that I personally reviewed demonstrating no acute disease. The patient also had pulmonary function studies many years ago but nothing recent. I do believe that she can not be off the air Advair at this time although she should continue with short-acting beta agonist as needed. The patient is still having some chest discomfort as well. [id number] some pleuritic component. The a in view of the history of pulmonary fibrosis and persistent chest pain after multiple course of antibiotics and the x-ray did not being diagnostic will go ahead and request a CT scan of the chest to further address her ongoing symptoms. The patient would also need pulmonary function studies and will follow-up afterwards. 04/16/2023 the patient is here for pulmonary follow-up visit. Overall she is feeling better from a respiratory status. Her cough is overall better and her shortness of breath as well. Likely related to the pneumonitis. The patient did have a CT scan of the chest back in January which we personally reviewed. No evidence of pneumonitis noted. The patient does have both subcentimeter calcified and noncalcified nodules or will require follow-up. She also has some reticular changes some radiation fibrosis from her radiation that she received for breast cancer. the patient is following up with surgery. She did have some minimal changes likely postoperative changes to the breast area. In the meantime she complains of significant neuropathy discomfort and also back pain. Is not clear she has had post herpetic neuralgia. I will go ahead and prescribed a Lidoderm patches see if this provides some relief. The patient is already taking gabapentin at nighttime. The patient will follow-up in January after her next CT scan. If she has any issues prior to that she is to call for an earlier assessment. [facility] Medical History (Updated 04/16/23 @ 22:[address] MD) Back pain Breast cancer, left (~10/2016) Breast lump on right side at 5 o'clock position Chest pain Chronic cough History of colon polyps Neuropathy Pneumonitis Pulmonary nodules Spondylosis Vaginal yeast infection Surgical History History of lumpectomy of right breast (06/26/22) Hx of colonoscopy (~10/2018) Hx of vein stripping S/P breast lumpectomy Family History Mother No problems noted. Father No problems noted. Other No family history of cancer Social History Household Members: Family and Children Housing: House Are you a primary care transition coordinator to a significant other at home: No Do you presently have visiting nurse or other home services: No Alcohol intake: never Patient Tobacco Use Status: Never used Tobacco e-Cigarette/Vaping Use: Never Used service: No Current occupational status: disabled Current occupation: rt handed Cognitive needs: No Hearing needs: No Vision needs: Yes Female Reproductive History Menstrual Age of Menarche: 15 Review of Systems Const Denies chills and Denies fever(s) ENT Denies epistaxis, Denies nasal discharge and Reports neck pain Card Denies chest pain Resp Denies chest congestion and Denies hemoptysis GI Denies diarrhea and Denies nausea Musc Reports back pain, Reports myalgias and Reports neck pain Skin/Breast Denies rash Neuro Reports no additional complaints Psych Reports no additional complaints Endo Reports no additional complaints Physical Exam Vital Signs: Last Vital Signs Pulse 83 04/16/23 09:07 BP 128/72 04/16/23 09:07 Pulse Ox 99 04/16/23 09:07 Oxygen Delivery Method Room Air 04/16/23 09:07 BMI result Body Mass Index 31.0 Const General: cooperative and healthy appearing Nutritional Appearance: well nourished Orientation/consciousness: patient oriented x3 Limitations: no limitations HEENT Head: Yes normal to inspection Eyes General: appearance normal, both eyes and all related structures Neck Neck: Yes normal visual inspection Chest Chest palpation & inspection: normal palpation of entire chest wall Resp Effort & Inspection: normal respiratory effort Neuro General: patient oriented x3 Assessment & Plan Assessment & Plan (1) Pneumonitis: Comment: resolved Code(s): J18.9 - Pneumonia, unspecified organism (2) Chest pain: Code(s): R07.9 - Chest pain, unspecified (3) Breast cancer, left: Onset Date: ~10/2016 Comment: Invasive [id number], radiation & chemotherapy Code(s): C50.912 - Malignant neoplasm of unspecified site of left female breast (4) Pulmonary nodules: Code(s): R91.8 - Other nonspecific abnormal finding of lung field Plan JHONATAN as needed Lidoderm patches CT chest January 2024 F/U January 2024 Orders: Orders CT chest wo IV con 02/02/24 R91.8 - Other nonspecific abnormal finding of lung field Medications: New lidocaine 5% (Lidoderm) leave on most painful area for up to 12 hrs 1 patch topical DAILY 30 ea 4RF 30 days G89.12 - Acute post-thoracotomy pain Coding Level of Care Code Est Pt Level 4 (89858) Diagnoses Pneumonitis J18.9 Chest pain R07.9 Breast cancer, left C50.912 Pulmonary nodules R91.8 Time Spent (min) 19
== END 2023-04-16 09:25 | disposition home or self-care (01) ==
PROVIDERS: PCP Internal Medicine; Visit Provider Hospitalist
DX: J18.9 Pneumonia, unspecified organism (principal); R07.9 Chest pain, unspecified; C50.912 Malignant neoplasm of unspecified site of left female breast; R91.8 Other nonspecific abnormal finding of lung field
CPT/HCPCS: 99214

== ENCOUNTER → 2023-04-16 08:31 | Outpatient (BNVA) | payer OTHER, SELFPAY | PROVIDERS: Visit Provider Hospitalist | DX: R07.9 Chest pain, unspecified (principal); R91.8 Other nonspecific abnormal finding of lung field; J70.0 Acute pulmonary manifestations due to radiation; N63.14 Unspecified lump in the right breast, lower inner quadrant; Z85.3 Personal history of malignant neoplasm of breast; Z92.3 Personal history of irradiation; Z92.21 Personal history of antineoplastic chemotherapy | CPT/HCPCS: 99212 ==

== ENCOUNTER 2023-05-13 11:09 | Outpatient (AMB) | payer OTHER, SELFPAY ==
--- NOTE | 2023-05-13 11:23 | A.OFFVIS_ITS ---
Intake Vital Signs 05/13/23 11:25 Height 5 ft 2 in Intake Visit Reasons: RA/OA Allergies Penicillins [PENICILLINS] Allergy (Severe, Verified 04/16/23 09:14) ANAPHYLAXIS, swelling streptomycin [STREPTOMYCIN] Allergy (Severe, Verified 04/16/23 09:14) ANAPHYLAXIS [facility] Medical History (Updated 05/13/23 @ 11:25 by allyve IA) Pulmonary nodules Pneumonitis Chest pain Chronic cough Vaginal yeast infection Breast lump on right side at 5 o'clock position History of colon polyps Breast cancer, left (~10/2016) Spondylosis Back pain Neuropathy Surgical History History of lumpectomy of right breast (06/26/22) Hx of vein stripping Hx of colonoscopy (~10/2018) S/P breast lumpectomy Family History Mother No problems noted. Father No problems noted. Other No family history of cancer Social History Household Members: Family and Children Housing: House Are you a primary day care home provider to a significant other at home: No Do you presently have visiting nurse or other home services: No Alcohol intake: never Patient Tobacco Use Status: Never used Tobacco e-Cigarette/Vaping Use: Never Used service: No Current occupational status: disabled Current occupation: rt handed Cognitive needs: No Hearing needs: No Vision needs: Yes Female Reproductive History Menstrual Age of Menarche: 15 Coding
[2023-05-13 11:25] VITALS: BP 118/74; PULSE 110; TEMP 36.3; O2SAT 97; BMI 31.2
--- NOTE | 2023-05-13 11:29 | A.OFFVIS_ITS ---
Intake Vital Signs 05/13/23 11:25 Height 5 ft 2 in Weight 170 lb 10.205 oz BMI 31.2 BP 118/74 Blood Pressure Location Rt brachial Position Sitting Pulse 110 H Pulse Source Pulse Oximeter Temp 97.3 F Temp Source Skin Pulse Oximetry (%) 97 Intake Visit Reasons: RA/OA Intake Note: Pt seen today for RA/OA follow up. C/o pain in bl leg/foot pain, worse on right; bl shoulder. Craniologist Required: No Accompanied by: Self / Same As Patient Allergies Penicillins [PENICILLINS] Allergy (Severe, Verified 05/13/23 11:31) ANAPHYLAXIS, swelling streptomycin [STREPTOMYCIN] Allergy (Severe, Verified 05/13/23 11:31) ANAPHYLAXIS Medication List - Last Reconciled 05/13/23 by Isai Wilson MD [bath stole As directed] cholecalciferol (vitamin D3) 25 mcg PO DAILY [compression stockings As directed] gabapentin 300 mg PO BEDTIME lidocaine 5% (Lidoderm) 1 patch topical DAILY 30 days naproxen 500 mg PO BID 90 days omeprazole 20 mg PO BID 90 days raloxifene 60 mg PO DAILY HPI HPI Comments History of Present Illness Details Patient returns for follow-up after completion of her blood work and x- rays. Continues to be about the same. Continues to have pain in her shoulders, neck, hands, feet, ankles. States that her ankles are swollen. She has burning pain of her legs and feet especially at night. Prednisone trial was not helpful Initial history: This is a 62-year-old female with a past medical history of breast cancer s/p chemoradiation, tamoxifen for 5 years, recently changed to Raloxifen, history of osteoporosis was on alendronate for 5 years, recently discontinued who presents for evaluation of diffuse pain. Patient was evaluated by Orthopedics and Pain Management for bilateral knee osteoarthritis. She has received cortisone and gel injections without much improvement. Orthopedics recommended arthroplasty but patient did not want to proceed. Pain management suggested a procedure but patient also did not want to proceed. Patient continues to have pain in her knees, she also has pain in her hands, wrists, ankles. She has pain and morning stiffness of her hands lasting a few hours. Patient takes naproxen 500 mg 1 tablet every 1-2 days with some improvement. She is unaware of any family history of autoimmune rheumatic disease. She has tingling and numbness of the tips of her fingers and her toes. [facility] Medical History Pulmonary nodules Pneumonitis Chest pain Chronic cough Vaginal yeast infection Breast lump on right side at 5 o'clock position History of colon polyps Breast cancer, left (~10/2016) Spondylosis Back pain Neuropathy Surgical History History of lumpectomy of right breast (06/26/22) Hx of vein stripping Hx of colonoscopy (~10/2018) S/P breast lumpectomy Family History Mother No problems noted. Father No problems noted. Other No family history of cancer Social History Household Members: Family and Children Housing: House Are you a primary group care worker to a significant other at home: No Do you presently have visiting nurse or other home services: No Alcohol intake: never Patient Tobacco Use Status: Never used Tobacco e-Cigarette/Vaping Use: Never Used service: No Current occupational status: disabled Current occupation: rt handed Cognitive needs: No Hearing needs: No Vision needs: Yes Female Reproductive History Menstrual Age of Menarche: 15 Review of Systems ENT Reports neck pain Musc Reports back pain, Reports arthralgias, Reports joint swelling, Reports limited range of motion, Reports neck pain, Reports numbness, Reports stiffness and Reports tingling Neuro Reports numbness and Reports tingling Physical Exam Vital Signs: Last Vital Signs Temp 97.3 F 05/13/23 11:25 Pulse 110 H 05/13/23 11:25 BP 118/74 05/13/23 11:25 Pulse Ox 97 05/13/23 11:25 BMI result Body Mass Index 31.2 Const General: cooperative, healthy appearing and comfortable Nutritional Appearance: obese Orientation/consciousness: patient oriented x3 Limitations: no limitations HEENT Head: Yes normocephalic and Yes atraumatic Mouth: moist mucous membranes Resp Effort & Inspection: normal respiratory effort and able to speak in complete sentences Cardio Rate: regular rate Neuro General: patient oriented x3 Extrem Other: Mild lymphedema of left upper extremity Bilateral wrist tenderness and pain with full flexion and extension Bilateral positive MCP squeeze test Bilateral diffuse PIP tenderness without swelling Pain with full flexion and extension of elbows Mild bilateral knee warmth Bilateral ankle tenderness to palpation without warmth Bilateral positive MTP squeeze test Diffuse fibromyalgia tender points Assessment & Plan Assessment & Plan (1) Polyarthralgia: Code(s): M25.50 - Pain in unspecified joint Plan: This is a 62-year-old female who presents for evaluation of diffuse joint pain. Her symptoms did not respond to prednisone. Clinical picture consistent with generalized osteoarthritis and a component of fibromyalgia. Discussed management of fibromyalgia with patient. Is a noninflammatory, non- autoimmune central afferent processing disorder leading to a diffuse pain syndrome. I suggested that patient try to address her underlying psychiatric issues, anxiety. I suggested evaluation by a therapist and/or a psychiatrist. Consider a sleep study referral from her PCP. Try to follow sleep hygiene practices. . Patient would benefit from increased physical activity, I suggested doing low-impact exercises, in light exercises at home. Patient is on gabapentin. She has an appointment with a neurologist this month. Follow-up in 9 months Plan I spent 28 minutes reviewing patient's chart, evaluating patient, counseling patient and documenting in the chart Coding Level of Care Code Est Pt Level 4 (06318) Diagnoses Polyarthralgia M25.50
== END 2023-05-13 12:08 | disposition home or self-care (01) ==
PROVIDERS: PCP Internal Medicine; Visit Provider Student in an Organized Health Care Education/Training Program
DX: M25.50 Pain in unspecified joint (principal)
CPT/HCPCS: 99214

== ENCOUNTER → 2023-05-13 11:09 | Outpatient (BNVA) | payer OTHER, SELFPAY | PROVIDERS: PCP Internal Medicine; Visit Provider Student in an Organized Health Care Education/Training Program | DX: M25.50 Pain in unspecified joint (principal); Z79.899 Other long term (current) drug therapy | CPT/HCPCS: 99212 ==

== ENCOUNTER 2023-06-03 09:01 | Outpatient (REF) | payer OTHER, SELFPAY ==
[2023-06-03 11:26] LABS: Vitamin B12 664 pg/mL (200-900)
[2023-06-03 11:30] LABS: Thyroid Stimulating Hormone 1.53 uIU/mL (0.32-4.0)
[2023-06-05 11:48] LABS: Prot Elec - Albumin 4.4 g/dL (3.8-4.8); Prot Elec - Alpha1 0.3 g/dL (0.2-0.3); Prot Elec - Alpha2 0.9 g/dL (0.5-0.9); Prot Elec - Beta 1 0.5 g/dL (0.4-0.6); Prot Elec - Beta 2 0.5 g/dL (0.2-0.5); Prot Elec - Gamma 1.6 g/dL (0.8-1.7); Prot Elec - Total Protein 8.1 g/dL (6.1-8.1)
== END 2023-06-03 09:02 | disposition home or self-care (01) ==
LOC: HO.LAB 09:01
PROVIDERS: Psychiatry & Neurology Neurology; PCP Internal Medicine; Visit Provider Internal Medicine
DX: R20.0 Anesthesia of skin (principal); G62.9 Polyneuropathy, unspecified
CPT/HCPCS: 36415; 82607; 84165; 84443

== ENCOUNTER 2023-06-12 08:49 | Outpatient (AMB) | payer OTHER, SELFPAY ==
--- NOTE | 2023-06-12 09:15 | MHC.OFFVIS ---
Intake Vital Signs 06/12/23 09:16 Height 5 ft 2 in Weight 167 lb BMI 30.5 BP 144/84 H Blood Pressure Location Lt brachial Position Sitting Pulse 100 Intake Visit Reasons: 6 month follow up Intake Note: Patient follow up for abdominal pain. Patient cc: abdominal pain, acid reflex burning sensation, some blood in her saliva in the morning. Denies any other GI issues. [employer] Consultant Required: No Accompanied by: Self / Same As Patient Allergies Penicillins [PENICILLINS] Allergy (Severe, Verified 06/12/23 09:16) ANAPHYLAXIS, swelling streptomycin [STREPTOMYCIN] Allergy (Severe, Verified 06/12/23 09:16) ANAPHYLAXIS Medication List - Last Reconciled 06/12/23 by Claudia Santillan MD [bath stole As directed] cholecalciferol (vitamin D3) 25 mcg PO DAILY [compression stockings As directed] gabapentin 300 mg PO BEDTIME lidocaine 5% (Lidoderm) 1 patch topical DAILY 30 days naproxen 500 mg PO BID 90 days omeprazole 20 mg PO BID 90 days raloxifene 60 mg PO DAILY HPI 6 month follow up HPI Details FOLLOW-UP GI CLINIC VISIT FOR THIS 62-YEAR-OLD FEMALE FOR FOLLOW-UP OF CHRONIC DIARRHEA. ?CHRONIC ILLNESSES:?hyperlipidemia, Inflammatory [id number], b/l knee osteoarthritis, shoulders ? cervical and Lumbar spondylosis, invasive ductal carcinoma left breast 10/2016, osteopenia, Invasive ductal carcinoma of left breast [facility]20 reviewed resolution of anemia with H&H of 12.6 & 37.9, NORMAL CHEM PANEL AND LFTS ? 07/19 iron studies were suggestive of anemia of chronic disease with ferritin of 125 ? 07/20 Celiac serologies were negative ? Stool studies were negative for WBC, C diff toxin and ova and parasite ? IMAGING STUDIES: 02/01/21 ABDOMINAL ULTRASOUND SHOWED: ? LIVER: Diffuse increased echotexture without focal abnormality. ? GALLBLADDER: Gallstones measuring 2.1 cm. No mural thickening or pericholecystic fluid. ? COMMON BILE DUCT: Common hepatic duct measures 0.7 cm. Common bile duct measures 0.4 cm. ? RIGHT KIDNEY: 11.1 cm. An interpolar anechoic cyst measures 2.8 cm. Unremarkable. ? LEFT KIDNEY: 10.1 cm. Unremarkable. ? SPLEEN: 7.6 cm. Unremarkable. ? FREE FLUID: None. ? IMPRESSION: ? 1. Cholelithiasis without evidence for acute cholecystitis. ? 2. Hepatic steatosis. ? ? ? 3. Right renal cyst demonstrates benign features. 03/13/20 ABD US FROM [facility] WAS REVIEWED: ? 1. Stable 2.5 x 2.2 x 2.4 complex septated cyst arising from the right kidney. Follow-up as per clinical indications. Normal left kidney. ? 2. Hepatic steatosis. ? 3. 1.7 x 1.1 x 1.2 mm moble gallstone in the gallbladder noted on current study. ?ENDOSCOPIC STUDIES: 10/2018 COLONOSCOPY SHOWED: ? One polyp removed ? Moderate diverticulosis seen in the sigmoid colon ? Moderate hemorrhoids on retroflexed exam. ? Plan: ? Await pathology results ? Patient has an appointment on 12/10/18 in the GI Clinic with Marcela Ghosh NP. ? Repeat Colonoscopy interval based on path results in 3 years if ? polyps are adenomatous and 5 years if polyps are hyperplastic (due to personal ? history of breast ca). ? Above findings were reviewed with the patient and colon polyps and ? diverticulosis handouts ? were given in the discharge area ? Colon, transverse polyp, polypectomy: Tubular adenoma. ?TODAY'S VISIT Decided not to have knee replacement surgery due to concern for complications Continues to have upper abdominal pain and intermittent diarrhea. Notes burning in the esophagus after eating. Notes some blood in the sputum. Cough has resolved. She would like to schedule an EGD and Colon PAST VISIT: Had pneumonia and chronic cough after a trip to [facility] and [facility]. Cough is better after prednisone and antibiotics Having problems with arthritis and neuropathy. Did not schedule EGD and colonoscopy. Scheduled for breast surgery and planning to schedule a knee replacement surgery in the near future. Complains of intermittent post prandial upper abdminal pain radiating laterally to the back usually 1/2 hour after eating Continues to have intermittent burning and epigastric pain - with or without eating. Diarrhea improved with fibre supplement ? Complains of heartburn, epigastric burning and nausea for the past 2 months. ? Notes regurgitation after eating. ? ? ? Unable to identify any precipitating foods. ?? ? Diarrhea has improved - notes occasionally. ?? ? Trying to control her weight by eating less. ? Abdominal US results were reviewed with the patient. ? Complains of worsening rt lumbar/back pain which is constant and gets worse when she moves. ? ? ? Cramps in hands and feet. ? ? ? Diarrhea resolved with psyllium husk once daily. ? ? ? Complains of weight gain since she was unable to go to the gym ? ? ? Planning to resume going to the Gym - since she has been vaccinated for COVID. ? ? ? She denies RUQ or epigastric pain. ? Patient is followed by Dr. Logan for kidney stones. ? Had a recent abdominal ultrasound [place] and was told that she had gallstones/a liver cyst and advised to follow up with GI. ? Complains of left low back pain. ? Denies epigastric or right upper quadrant pain ? Notes pain when she lies down and walks. ? Unclear if pain is affected by eating. ? Intermittent diarrhea - when she takes spicy foods. ? She notes bloating when she takes milk products and spicy foods. ? 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 Father No problems noted. Other No family history of cancer Social History Household Members: Family and Children Housing: House Are you a primary rn wound care to a significant other at home: No Do you presently have visiting nurse or other home services: No Alcohol intake: never Patient Tobacco Use Status: Never used Tobacco e-Cigarette/Vaping Use: Never Used service: No Current occupational status: disabled Current occupation: rt handed Cognitive needs: No Hearing needs: No Vision needs: Yes Female Reproductive History Menstrual Age of Menarche: 15 Review of Systems Const All systems reviewed & are unremarkable except as noted in HPI and below Physical Exam Vital Signs: Last Vital Signs Pulse 100 06/12/23 09:16 BP 144/84 H 06/12/23 09:16 BMI result Body Mass Index 30.5 Const General: healthy appearing and no acute distress Nutritional Appearance: average body habitus Orientation/consciousness: patient oriented x3 Limitations: no limitations HEENT Head: Yes normal to inspection Ears: hearing grossly normal bilaterally Eyes Sclerae: sclerae normal Pupils: Equal, round and reactive pupils present Neck Neck: Yes normal visual inspection Chest Chest palpation & inspection: normal inspection of the chest Resp Effort & Inspection: normal respiratory effort Auscultation: clear to auscultation bilaterally Cardio Palpation: normal PMI Rate: regular rate Rhythm: regular rhythm Heart sounds: S1 normal heart sound present, S2 normal heart sound present and no murmurs GI Palpation (GI): Soft to palpation, nontender and No hepatosplenomegaly present Auscultation: normal bowel sounds Rectal Exam - Female: deferred Skin General skin exam: no rashes or lesions noted Neuro General: patient oriented x3, gait normal and moves all extremities Cranial nerves: Yes Equal, round and reactive pupils present Psych Appearance: grossly normal Mental Status: mental status grossly normal Assessment & Plan Assessment & Plan (1) History of colon polyps: Comment: 11/17 colonoscopy showed diverticulosis and a 12-15 mm tubular adenoma was removed from the transverse colon. Repeat colonoscopy is advised in years and will be due in 11/20 Code(s): Z86.010 - Personal history of colonic polyps (2) Abdominal pain: Code(s): R10.9 - Unspecified abdominal pain (3) Chronic diarrhea: Comment: chronic diarrhea started after she had her colonoscopy in October,. Her symptoms can be due to infectious colitis or irritable bowel syndrome. She reports intolerance to milk products and lactose intolerance may be contributing to the diarrhea. Stool studies were negative and lab tests for celiac disease were normal. Diarrhea has resolved with psyllium husk once daily. Code(s): K52.9 - Noninfective gastroenteritis and colitis, unspecified (4) Asymptomatic gallstones: Code(s): K80.20 - Calculus of gallbladder without cholecystitis without obstruction Plan 62 YF with hyperlipidemia, Inflammatory pddjzbpif-sppe-ccptibfo, b/l knee osteoarthritis, shoulders, cervical and Lumbar spondylosis, invasive ductal carcinoma left breast 10/2016, osteopenia, followed in GI for chronic diarrhea for the past 3 years. Patient states her diarrhea started after she had her colonoscopy. Her symptoms can be due to infectious colitis or irritable bowel syndrome. She reports intolerance to milk products and lactose intolerance may be contributing to the diarrhea.? Stool studies were negative and lab tests for celiac disease were normal. Diarrhea is gradually improving and notes diarrhea intermittently now. Patient had an abdominal US on 03/13/20 at an outside facility which showed a 1.7 cms gallstone, FU US showed an increase in size to 2.1 cms. Pt notes intermittent post prandial upper abdominal pain for the past month - she is being referred to Dr Heaton to be evaluated for a Lap [place]. 12/12/22 Pt was advised to schedule an EGD (burning epigastric pain, painful swallowing) and Colonoscopy (FU of colon polyps). Patient would like to schedule in the summer of 2022 since she is planning to have a knee replacement surgery in the near future 06/12/23 Pt was advised to schedule an EGD (burning epigastric pain, painful swallowing) and Colonoscopy (FU of colon polyps). Pt stated she has not been called to schedule the procedures after her last appt Medications: New polyethylene glycol 3350 (Miralax) Mix Miralax with 64 oz(8 cups) of Crystal light. Take 2 tablets of Dulcolax qt 12 pm. Wait to have your 1st bowel movement, then begin drinking Miralax. Drink a glass of Miralax every 10-15 minutes until you are finished. You will drink at least another 4 cups of clear liquid of your choice over the next 2 hours. Please drink as many clear liquids as possible You may have clear liquids up to four hours before your procedure 17 grams PO DAILY 238 grams 0RF colon prep 1 day bisacodyl (Dulcolax (bisacodyl)) Take 2 tablets at 12 pm daily starting 2 days before colonoscopy appointment 10 mg (2 x 5 mg) PO ONCE 4 tabs 0RF colon prep 2 days Coding Level of Care Code Est Pt Level 4 (61955) Diagnoses History of colon polyps Z86.010 Abdominal pain R10.9 Chronic diarrhea K52.9 Asymptomatic gallstones K80.20 Time Spent (min) 24
[2023-06-12 09:16] VITALS: BP 144/84; PULSE 100; BMI 30.5
== END 2023-06-12 09:53 | disposition home or self-care (01) ==
PROVIDERS: Visit Provider Internal Medicine Gastroenterology
DX: Z86.010 Personal history of colon polyps (principal); R10.9 Unspecified abdominal pain; K52.9 Noninfective gastroenteritis and colitis, unspecified; K80.20 Calculus of gallbladder without cholecystitis without obstruction
CPT/HCPCS: 99214

== ENCOUNTER → 2023-06-12 08:49 | Outpatient (BNVA) | payer OTHER, SELFPAY | PROVIDERS: Visit Provider Internal Medicine Gastroenterology | DX: K52.9 Noninfective gastroenteritis and colitis, unspecified (principal); K80.20 Calculus of gallbladder without cholecystitis without obstruction; R10.9 Unspecified abdominal pain; Z86.010 Personal history of colon polyps | CPT/HCPCS: 99212 ==

== ENCOUNTER → 2023-09-17 10:19 | Outpatient (REF) | payer OTHER, SELFPAY ==
--- NOTE | ~2023-09-17 | NM_ITS ---
EXAMINATION: NM BONE SCAN OF THE WHOLE BODY CLINICAL INFORMATION: Bone pain, breast cancer. Patient states dental work with was removed from lower jaw 1 month ago. COMPARISON: Several previous bone scans are available for comparison, the most recent dated 10/24/2020. Radiographs of the bilateral hands, feet, ankles all dated 03/17/2023 are available for comparison. CT scan of the chest dated 03/07/2023 Is also available for comparison. TECHNIQUE: Multiple gamma scintillation camera images of the whole body were performed 2.25 hours following the intravenous administration of 28.0 mCi Tc-99m MDP. FINDINGS: In the head, there is a focus of mildly increased activity in the anterior left side of the maxilla, probably related to dental disease. There is minimally increased activity in the left molar or premolar region of the mandible, also likely due to dental disease. In the thoracic cage and upper extremities, there is minimally increased activity acromioclavicular joints bilaterally. Some residual radiopharmaceutical at the injection site in the right antecubital fossa is noted. In the spine, there is a focus of moderately increased activity in the left posterior elements of the mid cervical spine, probably due to facet arthropathy. There is very mildly increased activity present bilaterally in the posterior elements at L5/S1, probably due to facet arthropathy. In the pelvis, no significant abnormalities are present. In the lower extremities, there is mildly increased activity in the knees bilaterally, most prominently in the patellar compartments bilaterally in the medial compartment of the right knee. There is very minimally increased activity in the proximal feet bilaterally. No other definite bony abnormalities are noted. The urinary bladder and faint visualization of both kidneys are noted. Mild nonspecific abnormalities are noted as described above and these are all likely arthritic or traumatic in etiology. None of these abnormalities is strongly suspicious for metastatic disease. NM/NM bone scan whole body IMPRESSION: A few stable mild nonspecific abnormalities are noted as described above and these are all likely arthritic or traumatic in etiology. None of these abnormalities is strongly suspicious for metastatic disease.
== END ==
LOC: HO.NUCMED 10:19
PROVIDERS: PCP Internal Medicine; Visit Provider Internal Medicine Medical Oncology
DX: N63.14 Unspecified lump in the right breast, lower inner quadrant (principal)
CPT/HCPCS: 78306; A9503

== ENCOUNTER 2023-09-22 09:02 | Day surgery (SDC) | payer OTHER, SELFPAY ==
--- NOTE | 2023-09-19 09:23 | HO.ANESPROP2 ---
Documented by User: Joanne Burris NP 09/19/23 09:24 HPI - Anesthesia Eval Consult details Narrative: 62yo F for Upper Endoscopy and Colonoscopy [facility] Active Problems Active Problems: All Active Problems (Updated 08/07/23 @ 10:08 by Xavier Doan MD) Pulmonary nodules (Acute) Radiculitis of left cervical region (Acute) Polyarthralgia (Acute) Breast cancer, left (Acute ~10/2016) Pneumonitis (Acute) Chest pain (Acute) Chronic cough (Acute) History of colon polyps (Acute) Muscle cramps (Acute) Neck pain (Acute) Shoulder pain, right (Acute) Pneumonia (Acute) Cough (Acute) Renal cyst (Acute) Pleurisy (Acute) Hyperlipidemia (Acute) Inflammatory arthritis (Acute) Osteoarthritis (Acute) Osteopenia (Acute) Abdominal pain (Acute) Chronic diarrhea (Acute) Asymptomatic gallstones (Acute) Breast cancer (Acute) Dyspepsia (Acute) Peripheral vascular disease (Acute) Obesity (BMI 30.0-34.9) (Acute) Mid back pain on right side (Acute) Renal cyst, right (Acute) Serous otitis media (Acute) Arthrosis (Acute) Swelling of toe of both feet (Acute) Encounter for general adult medical examination with abnormal findings (Acute) Routine gynecological examination (Acute) Encounter for annual routine gynecological examination (Acute) Osteoarthritis of multiple joints (Acute) Knee pain, right (Acute) Osteoarthritis of right knee (Acute) Cervical radiculopathy (Acute) Spondylosis of cervical region without myelopathy or radiculopathy (Acute) Myofascial pain (Acute) Strain of cervical portion of both trapezius muscles (Acute) Encounter for annual routine gynecological examination (Acute) Patellofemoral arthritis of right knee (Acute) Upper abdominal pain (Acute) Blood in urine (Acute) Vaginal itching (Acute) Back pain (Acute) Neuropathy (Acute) Past Medical History Medical History Pulmonary nodules Pneumonitis Chest pain Chronic cough Vaginal yeast infection Breast lump on right side at 5 o'clock position History of colon polyps Breast cancer, left (~10/2016) Spondylosis Back pain Neuropathy Family History Family History Mother No problems noted. Father No problems noted. Other No family history of cancer Family history of problems with anesthesia: No Surgical History Surgical History History of lumpectomy of right breast (06/26/22) Hx of vein stripping Hx of colonoscopy (~10/2018) S/P breast lumpectomy History of Problems with Anesthesia: No Social History Social History Household Members: Family and Children Housing: House Are you a primary critical care paramedic to a significant other at home: No Do you presently have visiting nurse or other home services: No Alcohol intake: never Comment: med with oxycodone 5 mg po in PACU Patient Tobacco Use Status: Never used Tobacco e-Cigarette/Vaping Use: Never Used Advance Directives: No Advance Directives Information Provided: Yes service: No Current occupational status: disabled Current occupation: rt handed Cognitive needs: No Hearing needs: No Vision needs: Yes Meds Allergies Allergy/AdvReac Type Severity Reaction Status Date / Time Penicillins [PENICILLINS] Allergy Severe ANAPHYLAXIS, Verified 08/07/23 09:06 swelling streptomycin [STREPTOMYCIN] Allergy Severe ANAPHYLAXIS Verified 08/07/23 09:06 Exam Pertinent Lab Results Pertinent Lab Results: Laboratory Tests 08/07/23 09:05 WBC 6.2 Hgb 13.1 Hct 39.8 Plt Count 251 Sodium 140 Potassium 4.8 Chloride 106 Carbon Dioxide 26 BUN 11 Creatinine 0.76 Assessment and Plan Assessment Anesthesia Assessment: Chart Reviewed Final Anesthetic Review Family History of Problems with Anesthesia: No History of Problems with Anesthesia: No Documented by User: Aminata Barrett MD 09/22/23 10:07 [facility] Past Medical History Medical History Pulmonary nodules Pneumonitis Chest pain Chronic cough Vaginal yeast infection Breast lump on right side at 5 o'clock position History of colon polyps Breast cancer, left (~10/2016) Spondylosis Back pain Neuropathy Family History Family History Mother No problems noted. Father No problems noted. Other No family history of cancer Surgical History Surgical History History of lumpectomy of right breast (06/26/22) Hx of vein stripping Hx of colonoscopy (~10/2018) S/P breast lumpectomy Social History Social History Household Members: Family and Children Housing: House Are you a primary critical care paramedic to a significant other at home: No Do you presently have visiting nurse or other home services: No Alcohol intake: never Comment: med with oxycodone 5 mg po in PACU Patient Tobacco Use Status: Never used Tobacco e-Cigarette/Vaping Use: Never Used Advance Directives: No Advance Directives Information Provided: Yes service: No Current occupational status: disabled Current occupation: rt handed Cognitive needs: No Hearing needs: No Vision needs: Yes Meds Allergies Allergy/AdvReac Type Severity Reaction Status Date / Time Penicillins [PENICILLINS] Allergy Severe ANAPHYLAXIS, Verified 08/07/23 09:06 swelling streptomycin [STREPTOMYCIN] Allergy Severe ANAPHYLAXIS Verified 08/07/23 09:06 Exam Airway Mallampati Class: II TM Dist: >3cm Neck ROM: Full Heart: rrr Lungs: cta Assessment and Plan Assessment Anesthesia Assessment: Anesthesia Plan Discussed Final Anesthetic Review NPO: Yes ASA Class: III Final Preanesthetic Review: No Changes in Pt Med Stat, Meds/Allgs Chart Reviewed and Consent Obtained/Reviewed Patient Risk: Intermediate Procedure Risk: Intermediate Anesthetic Plan Anesthetic Plan: MAC: Disposition: Standard PACU
[2023-09-22 10:03] VITALS: BP 109/58; PULSE 106; RESP 18; TEMP 37; O2SAT 96
--- NOTE | 2023-09-22 10:06 | MHC.SHP ---
Pre-Procedural Eval Section A Date of Service: 09/22/23 The patient is an INPATIENT: No The History & Physical has been completed within 30 days and I have reviewed it.: No Section B Chief Complaint: Surveillance for colon polyps, GERD, abd pain Relevant Family History (Specify if Yes): No Relevant Social History: None Present Medications: see Short Stay Collaborative assessment Medical History: Significant History (Pulmonary nodules Pneumonitis Chest pain Chronic cough Vaginal yeast infection Breast lump on right side at 5 o'clock position History of colon polyps Breast cancer, left (~10/2016) Spondylosis Back pain Neuropathy) History of Previous Operations: Relevant previous surgery/procedure and date(s) (History of lumpectomy of right breast (06/26/22) Hx of vein stripping Hx of colonoscopy (~10/2018) S/P breast lumpectomy) Allergies: Allergies Allergy/AdvReac Type Severity Reaction Status Date / Time Penicillins [PENICILLINS] Allergy Severe ANAPHYLAXIS, Verified 08/07/23 09:06 swelling streptomycin [STREPTOMYCIN] Allergy Severe ANAPHYLAXIS Verified 08/07/23 09:06 Review of Systems Sugical H&P ROS: Negative: Constitution, Cardiovascular, Respiratory and Gastrointestinal Exam Surgical H&P Exam: Normal: Heart, Normal: Lungs, Normal: Extremities and Normal: Abdomen Plan Diagnosis/Plan: Unchanged I have reviewed the history and physical and performed a pertinent physical examination on my patient. No changes have occurred unless specified. Time Spent With Patient Time: Total time managing care of this patient today ____ minutes.
[2023-09-22] MEDS: Lactated Ringers 1,000 ML 100 ML IVCONT (10:15)
--- NOTE | 2023-09-22 11:00 | W.PM.OPN ---
Operative Note Operative Note Date of Service: 09/22/23 Narrative: FLEXIBLE TRANSORAL UPPER GASTROINTESTINAL ENDOSCOPY WITH BIOPSIES AND COLONOSCOPY TILL CECUM WITH BIOPSIES Pre-op diagnosis: Surveillance for colon polyps, chronic diarrhea, GERD, epigastric pain Post-op diagnosis: Gastritis, GERD, gastric polyps, colon polyps, diverticulosis, hemorrhoids? Endoscopist:? Claudia Santillan MD Anesthesia:?MAC UPPER ENDOSCOPY Consent: Indications for the procedure and potential complications of bleeding, perforation, reaction to medications and missed diagnosis were discussed with the patient and informed consent was obtained. Instrument: Olympus GIF H 190 mid size upper endoscope Monitoring: Vital signs and clinical assessment, continuous EKG monitoring, Pulse oximetry, Carbon Dioxide monitoring and blood pressure monitoring were done throughout the procedure. Procedure: The patient was placed in the left lateral decubitis position and pre-procedure medications were administered and a bite block was placed. The endoscope was inserted into the mouth and advanced under direct vision to the third part of duodenum. A careful inspection was made as the upper endoscope was withdrawn including a retroflexed examination of the proximal stomach; Findings and interventions are described below. Findings: Larynx: Normal Esophagus: Tortuous esophagus with increased tertiary contractions without stricture or ring - biopsies were obtained from proximal esophagus to check for EOE. GE junction at 35 cms. No esophagitis or Cronin's. Stomach: A few 5-7 mm benign appearing polyps in the gastric fundus - biopsied. Mild gastric erythema. Biopsies were obtained. Grade 2 flap valve on retroflexed examination of the cardia. Duodenum: Normal bulb and descending duodenum. Biopsies were obtained from 3rd part of the duodenum to check for celiac sprue. Intervention: Biopsies as noted above COLONOSCOPY PROCEDURE NOTE Consent: Indications for the procedure and potential complications of bleeding, perforation, reaction to medications and missed diagnosis were discussed with the patient and informed consent was obtained. Instrument: Olympus PCF H 190 L variable stiffness pediatric colonoscope Monitoring: Vital signs and clinical assessment, intermittent blood pressure monitoring, continuous EKG monitoring, Pulse oximetry and Carbon Dioxide monitoring were done throughout the procedure. Colon withdrawl time was 18 minutes. Procedure: The patient was placed in the left lateral decubitis position and pre-procedure medications were administered. After a digital rectal examination of the ano-rectum, the video colonoscope was inserted into the rectum and advanced through the colon to the cecum. The colonoscope was slowly withdrawn in a retrograde panoramic fashion and the colon mucosa was carefully examined including a retroflexed view of the rectum. Findings and interventions are described below. Procedure Difficulty: : Without difficulty Findings: Terminal Ileum: Not evaluated Cecum: Normal Ascending Colon: Moderate diverticulosis throughout the colon Transverse Colon: Moderate diverticulosis throughout the colon Descending Colon: Moderate diverticulosis throughout the colon Sigmoid Colon: A 5-6mm diminutive appearing polyp versus inverted diverticulum at 40 cms - biopsied. A 7-8 mm sessile polyp at 35 cms - removed with a cold biopsy. Moderate diverticulosis Rectum: Normal Ano-rectum: Moderate internal hemorrhoids Colon preparation: Good after copious irrigation Impression and Post Procedure Diagnosis: Endoscopy Findings: ESOPHAGUS: Tortuous esophagus with increased tertiary contractions without stricture or ring - biopsies were obtained from proximal esophagus to check for EOE. STOMACH: A few 5-7 mm benign appearing polyps in the gastric fundus - biopsied. Mild gastric erythema. Biopsies were obtained. DUODENUM: Normal - biopsied to check for celaic sprue Colonoscopy Findings: One polyp removed random biopsies were obtained from right and left colon to rule put micorscopic colitis Moderate diverticulosis seen in the entire colon Moderate hemorrhoids on retroflexed exam. Plan: Await pathology results Patient has an appointment on 10/09/23 in the GI Clinic with Claudia Santillan M.D.. Repeat Colonoscopy interval based on path results - in 5 years if polyps are adenomatous and due to a hx of adenomatous colon polyps. Above findings were reviewed with the patient and gastric polyps, colon polyps and diverticulosis handouts were given in the discharge area.
[2023-09-22 11:49] VITALS: BP 88/44; PULSE 81; RESP 16; TEMP 37.1; O2SAT 100
[2023-09-22 12:04] VITALS: BP 112/63; PULSE 89; RESP 18; TEMP 37.1; O2SAT 100
== END 2023-09-22 12:41 | disposition home or self-care (01) ==
PROVIDERS: PCP Internal Medicine; Visit Provider Internal Medicine Gastroenterology
PROC: (CPT 43239; principal; 2023-09-22 11:00)
DX: K31.7 Polyp of stomach and duodenum (principal); K29.60 Other gastritis without bleeding; K21.9 Gastro-esophageal reflux disease without esophagitis; K22.4 Dyskinesia of esophagus; Z12.11 Encounter for screening for malignant neoplasm of colon; K63.5 Polyp of colon; K57.30 Diverticulosis of large intestine without perforation or abscess without bleeding; K64.8 Other hemorrhoids; Z86.010 Personal history of colon polyps; Z85.3 Personal history of malignant neoplasm of breast
CPT/HCPCS: 43239; 45380; 88305; 88313; 88341; 88342; J2704

== ENCOUNTER → 2023-09-22 09:02 | Outpatient (BNV) | payer OTHER, SELFPAY | PROVIDERS: PCP Internal Medicine; Visit Provider Internal Medicine Gastroenterology | DX: Z12.11 Encounter for screening for malignant neoplasm of colon (principal); Z86.010 Personal history of colon polyps; K57.90 Diverticulosis of intestine, part unspecified, without perforation or abscess without bleeding; K63.5 Polyp of colon; K21.9 Gastro-esophageal reflux disease without esophagitis; K29.70 Gastritis, unspecified, without bleeding; K31.7 Polyp of stomach and duodenum | CPT/HCPCS: 43239; 45380 ==

== ENCOUNTER 2023-10-09 11:21 | Outpatient (AMB) | payer OTHER, SELFPAY ==
--- NOTE | 2023-10-09 11:25 | MHC.OFFVIS ---
Intake Vital Signs 10/09/23 11:32 Height 5 ft 2 in Weight 166 lb BMI 30.4 BP 120/66 Blood Pressure Location Lt brachial Position Sitting Pulse 99 Intake Visit Reasons: S/P Double; Dr. Santillan Intake Note: Patient follow up for abdominal pain and EGD/Colonoscopy results. Patient denies any GI issues. 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 Santillan HPI Details FOLLOW-UP GI CLINIC VISIT FOR THIS 62-YEAR-OLD FEMALE FOR FOLLOW-UP OF CHRONIC DIARRHEA. ?CHRONIC ILLNESSES:?hyperlipidemia, Inflammatory [id number], b/l knee osteoarthritis, shoulders ? cervical and Lumbar spondylosis, invasive ductal carcinoma left breast 10/2016, osteopenia, Invasive ductal carcinoma of left breast [facility]20 reviewed resolution of anemia with H&H of 12.6 & 37.9, NORMAL CHEM PANEL AND LFTS ? 07/19 iron studies were suggestive of anemia of chronic disease with ferritin of 125 ? 07/20 Celiac serologies were negative ? Stool studies were negative for WBC, C diff toxin and ova and parasite ? IMAGING STUDIES: 02/01/21 ABDOMINAL ULTRASOUND SHOWED: ? LIVER: Diffuse increased echotexture without focal abnormality. ? GALLBLADDER: Gallstones measuring 2.1 cm. No mural thickening or pericholecystic fluid. ? COMMON BILE DUCT: Common hepatic duct measures 0.7 cm. Common bile duct measures 0.4 cm. ? RIGHT KIDNEY: 11.1 cm. An interpolar anechoic cyst measures 2.8 cm. Unremarkable. ? LEFT KIDNEY: 10.1 cm. Unremarkable. ? SPLEEN: 7.6 cm. Unremarkable. ? FREE FLUID: None. ? IMPRESSION: ? 1. Cholelithiasis without evidence for acute cholecystitis. ? 2. Hepatic steatosis. ? ? ? 3. Right renal cyst demonstrates benign features. 03/13/20 ABD US FROM [facility] WAS REVIEWED:? 1. Stable 2.5 x 2.2 x 2.4 complex septated cyst arising from the right kidney. Follow-up as per clinical indications. Normal left kidney. ? 2. Hepatic steatosis. ? 3. 1.7 x 1.1 x 1.2 mm moble gallstone in the gallbladder noted on current study. ?ENDOSCOPIC STUDIES: 09/22/23 EGD AND COLON SHOWED: Endoscopy Findings: ESOPHAGUS: Tortuous esophagus with increased tertiary contractions without stricture or ring - biopsies were obtained from proximal esophagus to check for EOE. STOMACH: A few 5-7 mm benign appearing polyps in the gastric fundus - biopsied. Mild gastric erythema. Biopsies were obtained. DUODENUM: Normal - biopsied to check for celaic sprue Colonoscopy Findings: One hyperplastic polyp removed random biopsies were obtained from right and left colon to rule put micorscopic colitis Moderate diverticulosis seen in the entire colon Moderate hemorrhoids on retroflexed exam. Plan: Repeat Colonoscopy interval based on path results - in 5 years if polyps are adenomatous and due to a hx of adenomatous colon polyps. 10/2018 COLONOSCOPY SHOWED: ? One polyp removed ? Moderate diverticulosis seen in the sigmoid colon ? Moderate hemorrhoids on retroflexed exam. ? Plan: ? Await pathology results ? Patient has an appointment on 12/10/18 in the GI Clinic with Marcela Ghosh NP. ? Repeat Colonoscopy interval based on path results in 3 years if ? polyps are adenomatous and 5 years if polyps are hyperplastic (due to personal ? history of breast ca). ? Above findings were reviewed with the patient and colon polyps and ? diverticulosis handouts ? were given in the discharge area ? Colon, transverse polyp, polypectomy: Tubular adenoma. ?TODAY'S VISIT EGD and colon results reviewed with the patient. Planning to have cataract surgery. Taking Omeprazole twice daily with adequate control of burning sensation Decreased tea intake to once a day instead of three times a day. Denies diarrhea PAST VISIT: Decided not to have knee replacement surgery due to concern for complications Continues to have upper abdominal pain and intermittent diarrhea. Notes burning in the esophagus after eating. Notes some blood in the sputum. Cough has resolved. She would like to schedule an EGD and Colon Had pneumonia and chronic cough after a trip to [facility] and [facility]. Cough is better after prednisone and antibiotics Having problems with arthritis and neuropathy. Did not schedule EGD and colonoscopy. Scheduled for breast surgery and planning to schedule a knee replacement surgery in the near future. Complains of intermittent post prandial upper abdminal pain radiating laterally to the back usually 1/2 hour after eating Continues to have intermittent burning and epigastric pain - with or without eating. Diarrhea improved with fibre supplement ? Complains of heartburn, epigastric burning and nausea for the past 2 months. ? Notes regurgitation after eating. ? ? ? Unable to identify any precipitating foods. ?? ? Diarrhea has improved - notes occasionally. ?? ? Trying to control her weight by eating less. ? Abdominal US results were reviewed with the patient. ? Complains of worsening rt lumbar/back pain which is constant and gets worse when she moves. ? ? ? Cramps in hands and feet. ? ? ? Diarrhea resolved with psyllium husk once daily. ? ? ? Complains of weight gain since she was unable to go to the gym ? ? ? Planning to resume going to the Gym - since she has been vaccinated for COVID. ? ? ? She denies RUQ or epigastric pain. ? Patient is followed by Dr. Logan for kidney stones. ? Had a recent abdominal ultrasound [place] and was told that she had gallstones/a liver cyst and advised to follow up with GI. ? Complains of left low back pain. ? Denies epigastric or right upper quadrant pain ? Notes pain when she lies down and walks. ? Unclear if pain is affected by eating. ? Intermittent diarrhea - when she takes spicy foods. ? She notes bloating when she takes milk products and spicy foods. ? 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 Father No problems noted. Other No family history of cancer Social History Household Members: Family and Children Housing: House Are you a primary director of home care hospice to a significant other at home: No Do you presently have visiting nurse or other home services: No Alcohol intake: never Comment: med with oxycodone 5 mg po in PACU Patient Tobacco Use Status: Never used Tobacco e-Cigarette/Vaping Use: Never Used service: No Current occupational status: disabled Current occupation: rt handed Cognitive needs: No Hearing needs: No Vision needs: Yes Female Reproductive History Menstrual Age of Menarche: 15 Review of Systems Const All systems reviewed & are unremarkable except as noted in HPI and below Physical Exam Vital Signs: Last Vital Signs Pulse 99 10/09/23 11:32 BP 120/66 10/09/23 11:32 BMI result Body Mass Index 30.4 Const General: healthy appearing and no acute distress Nutritional Appearance: average body habitus Orientation/consciousness: patient oriented x3 Limitations: no limitations HEENT Head: Yes normal to inspection Ears: hearing grossly normal bilaterally Eyes Sclerae: sclerae normal Pupils: Equal, round and reactive pupils present Neck Neck: Yes normal visual inspection Chest Chest palpation & inspection: normal inspection of the chest Resp Effort & Inspection: normal respiratory effort Auscultation: clear to auscultation bilaterally Cardio Palpation: normal PMI Rate: regular rate Rhythm: regular rhythm Heart sounds: S1 normal heart sound present, S2 normal heart sound present and no murmurs GI Palpation (GI): Soft to palpation, nontender and No hepatosplenomegaly present Auscultation: normal bowel sounds Rectal Exam - Female: deferred Skin General skin exam: no rashes or lesions noted Neuro General: patient oriented x3, gait normal and moves all extremities Cranial nerves: Yes Equal, round and reactive pupils present Psych Appearance: grossly normal Mental Status: mental status grossly normal Assessment & Plan Assessment & Plan (1) History of colon polyps: Comment: 11/17 colonoscopy showed diverticulosis and a 12-15 mm tubular adenoma was removed from the transverse colon. 09/24 One hyperplastic polyp removed during colonoscopy> Repeat colonoscopy advised in 5 years. Code(s): Z86.010 - Personal history of colonic polyps (2) Chronic diarrhea: Comment: chronic diarrhea started after she had her colonoscopy in October, - diarrhea has resolved. Her symptoms can be due to infectious colitis or irritable bowel syndrome. She reports intolerance to milk products and lactose intolerance may be contributing to the diarrhea. Stool studies were negative and lab tests for celiac disease were normal. Diarrhea has resolved with psyllium husk once daily. 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 Patient states her diarrhea started after she had her colonoscopy. Her symptoms can be due to infectious colitis or irritable bowel syndrome. She reports intolerance to milk products and lactose intolerance may be contributing to the diarrhea.? Stool studies were negative and lab tests for celiac disease were normal. Diarrhea is gradually improving and notes diarrhea has resolved now. Patient had an abdominal US on 03/13/20 at an outside facility which showed a 1.7 cms gallstone, FU US showed an increase in size to 2.1 cms. Pt notes intermittent post prandial upper abdominal pain for the past month - she is being referred to Dr Heaton to be evaluated for a Lap [place]. 12/12/22 Pt was advised to schedule an EGD (burning epigastric pain, painful swallowing) and Colonoscopy (FU of colon polyps). Patient would like to schedule in the summer of 2022 since she is planning to have a knee replacement surgery in the near future 06/12/23 Pt was advised to schedule an EGD (burning epigastric pain, painful swallowing) and Colonoscopy (FU of colon polyps). 09/22/23 EGD and colonoscopy were performed and results as noted above. 10/09/22 EGD and colon results reviewed with the patient. Planning to have cataract surgery. Taking Omeprazole twice daily with adequate control of burning sensation Decreased tea intake to once a day instead of three times a day. Denies diarrhea FU in 6 months Medications: New psyllium husk (Fiber (psyllium husk)) 0.52 grams PO BID 90 days 180 caps 1RF K52.9 - Noninfective gastroenteritis and colitis, unspecified Coding Level of Care Code Est Pt Level 4 (98343) Diagnoses History of colon polyps Z86.010 Chronic diarrhea K52.9 Dyspepsia R10.13 Upper abdominal pain R10.10 Time Spent (min) 21
[2023-10-09 11:32] VITALS: BP 120/66; PULSE 99; BMI 30.4
== END 2023-10-09 12:14 | disposition home or self-care (01) ==
PROVIDERS: PCP Internal Medicine; Visit Provider Internal Medicine Gastroenterology
DX: Z86.010 Personal history of colon polyps (principal); K52.9 Noninfective gastroenteritis and colitis, unspecified; R10.13 Epigastric pain; R10.10 Upper abdominal pain, unspecified
CPT/HCPCS: 99214

== ENCOUNTER → 2023-10-09 11:21 | Outpatient (BNVA) | payer OTHER, SELFPAY | PROVIDERS: PCP Internal Medicine; Visit Provider Internal Medicine Gastroenterology | DX: K52.9 Noninfective gastroenteritis and colitis, unspecified (principal); R10.13 Epigastric pain; R10.10 Upper abdominal pain, unspecified; Z86.010 Personal history of colon polyps | CPT/HCPCS: 99212 ==

== ENCOUNTER 2023-10-15 10:47 | Outpatient (AMB) | payer OTHER, SELFPAY ==
[2023-10-15 10:53] VITALS: BP 126/82; PULSE 94; O2SAT 97; BMI 30.8
--- NOTE | 2023-10-15 10:53 | MHC.PC.OV ---
Vital Signs 10/15/23 10:53 Height 5 ft 2 in Weight 168 lb 8 oz BMI 30.8 BP 126/82 Blood Pressure Location Rt brachial Position Sitting Pulse 94 Pulse Source Pulse Oximeter Pulse Oximetry (%) 97 Oxygen Delivery Method Room Air Intake Visit Reasons: Neck /Back pain F/U Allergies Penicillins [PENICILLINS] Allergy (Severe, Verified 10/15/23 10:56) ANAPHYLAXIS, swelling streptomycin [STREPTOMYCIN] Allergy (Severe, Verified 10/15/23 10:56) ANAPHYLAXIS Medication List - Last Reconciled 10/15/23 by Adria Rubio MD [bath stole As directed] cholecalciferol (vitamin D3) 25 mcg PO DAILY [compression stockings As directed] gabapentin 300 mg PO BEDTIME naproxen 500 mg PO BID omeprazole 20 mg PO BID 90 days psyllium husk (Fiber (psyllium husk)) 0.52 grams PO BID 90 days raloxifene 60 mg PO DAILY Tobacco use date assessed: 10/15/23 Dental Screening Dental Screen Date: 10/15/23 Did you have a dental visit in the last 12 months?: Yes Did you have a dental problem in the last 6 months where you did not have access to dental care?: No Was dental information given to patient?: Patient has dentist HPI Neck /Back pain F/U HPI Details Patient is a 62-year-old female came today talk about urinary incontinence Which has for a while. I am ordering pelvic floor therapy along with Detrol mg once a day She is also requesting refill on Lotrisone that she use for suprapubic rash p.r.n. She has an appointment with OBGYN tomorrow but patient says that she does not want to go she will be cancelling the appointment Book a telemedicine visit couple of weeks to follow-up urine incontinence. [facility] Medical History Pulmonary nodules Pneumonitis Chest pain Chronic cough Vaginal yeast infection Breast lump on right side at 5 o'clock position History of colon polyps Breast cancer, left (~10/2016) Spondylosis Back pain Neuropathy Surgical History History of esophagogastroduodenoscopy (EGD) History of lumpectomy of right breast (06/26/22) Hx of vein stripping Hx of colonoscopy (~10/2018) S/P breast lumpectomy Family History Mother No problems noted. Father No problems noted. Other No family history of cancer Social History Household Members: Family and Children Housing: House Are you a primary clinical care manager to a significant other at home: No Do you presently have visiting nurse or other home services: No Alcohol intake: never Comment: med with oxycodone 5 mg po in PACU Patient Tobacco Use Status: Never used Tobacco e-Cigarette/Vaping Use: Never Used service: No Current occupational status: disabled Current occupation: rt handed Cognitive needs: No Hearing needs: No Vision needs: Yes Female Reproductive History Menstrual Age of Menarche: 15 Questionnaire Thrive Questionnaire Date Thrive assessed: 04/09/23 AUDIT C Alcohol Use Questionnaire (AUDIT-C) 1. How often do you have a drink containing alcohol?: Never 3. How often do you have six or more drinks on one occasion?: Never Total Score: 0 Score Reviewed/Action Taken: Yes INOCENCIO-7 AMB Questionnaire INOCENCIO-7 Date INOCENCIO - 7 assessed: 04/09/23 Source: Developed by Drs. Andi Kim, Ashley Watson, Donovan Jones and colleagues, with an educational reji from [employer]. Review of Systems Const Denies chills and Denies fever(s) ENT Denies epistaxis and Denies nasal discharge Card Denies chest pain Resp Denies chest congestion, Denies cough and Denies hemoptysis GI Denies diarrhea and Denies nausea Skin/Breast Denies rash Neuro Reports no additional complaints Psych Reports no additional complaints Endo Reports no additional complaints Physical exam (Primary Care) Vital Signs: Last Vital Signs Pulse 94 10/15/23 10:53 BP 126/82 10/15/23 10:53 Pulse Ox 97 10/15/23 10:53 Oxygen Delivery Method Room Air 10/15/23 10:53 BMI result Body Mass Index 30.8 Tobacco/Smoking Status: Tobacco use Status Tobacco use date assessed 10/15/23 10/15/23 10:57 Patient Tobacco Use Status Never used Tobacco 10/15/23 10:57 e-Cigarette/Vaping Use Never Used 10/15/23 10:57 Thrive Assessment: Date of Thrive Assessment Date Thrive assessed 04/09/23 10/15/23 10:57 Const General: cooperative, comfortable and no acute distress Orientation/consciousness: patient oriented x3 HENMT Head: Yes normocephalic Eyes General: appearance normal, both eyes and all related structures Neck Neck: Yes supple Resp Effort & Inspection: normal respiratory effort, no cough and no stridor Cardio Rhythm: regular rhythm Heart sounds: S1 normal heart sound present and S2 normal heart sound present Skin General skin exam: turgor normal Neuro General: patient oriented x3, tone normal and moves all extremities Extrem Right lower extremity: no edema Left lower extremity: no edema Assessment and Plan Assessment & Plan (1) Urine incontinence: Code(s): R32 - Unspecified urinary incontinence Qualifiers: Urinary Incontinence type: mixed stress and urge incontinence Qualified Code(s): N39.46 - Mixed incontinence Plan Patient is a 62-year-old female came today talk about urinary incontinence Which has for a while. I am ordering pelvic floor therapy along with Detrol mg once a day She is also requesting refill on Lotrisone that she use for suprapubic rash p.r.n. She has an appointment with OBGYN tomorrow but patient says that she does not want to go she will be cancelling the appointment Book a telemedicine visit couple of weeks to follow-up urine incontinence. Orders: Orders PT Evaluation and Treatment Today R32 - Unspecified urinary incontinence Medications: New tolterodine ER (Detrol LA) 2 mg PO Q24H 30 caps 0RF Refilled clotrimazole-betamethasone 1-0.05 % 1 appl topical ONCE 45 grams 2RF 30 days Coding Level of Care Code Est Pt Level 3 (25606) Diagnoses Mixed stress and urge urinary incontinence N39.46 Urinary Incontinence type: mixed stress and urge incontinence
== END 2023-10-15 12:19 | disposition home or self-care (01) ==
PROVIDERS: PCP Internal Medicine; Visit Provider Internal Medicine
DX: N39.46 Mixed incontinence (principal)
CPT/HCPCS: 99213

== ENCOUNTER 2023-10-16 08:46 | Outpatient (REF) | payer OTHER, SELFPAY ==
[2023-10-16 09:01] LABS: MANUAL DIFF FLAG NO
[2023-10-16 09:36] LABS: Basophils Percent Auto 0.6 % (0-2); Eosinophils Absolute Auto 0.3 X10*3/uL (0.0-0.4); Hematocrit 37.5 % (37.0-47.0); Hemoglobin 12.8 g/dl (12.0-16.0); Imm Gran Abs Auto 0.01 X10*3/uL (0.00-0.03); Imm Gran Pct Auto 0.2 % (0.0-0.4); Lymphocytes Absolute Auto 3.2 X10*3/uL (1.2-4.9); Lymphocytes Percent Auto 50.2 % (20-40); Mean Corpuscular HGB Conc 34.1 g/dl (31.0-35.0); Mean Corpuscular Hemoglobin 30.9 pg (27.0-33.0); Mean Corpuscular Volume 90.6 fL (80.0-98.0); Mean Platelet Volume 9.8 fL (9.4-12.3); Monocytes Absolute Auto 0.5 X10*3/uL (0.1-1.2); Monocytes Percent Auto 7.9 % (2-11); Neutrophils Absolute Auto 2.3 x10*3/uL (2.0-8.3); Neutrophils Percent Auto 37.1 % (45-73); Platelet Count 239 X10*3/uL (160-400); Red Blood Count 4.14 X10*6/uL (4.20-5.50); Red Cell Distribution Width 13.1 % (11.0-16.0); White Blood Count 6.3 X10*3/uL (4.8-10.8)
[2023-10-16 09:46] LABS: Alanine Aminotransferase 20 U/L (0-31); Alkaline Phosphatase 97 U/L (39-117); Anion Gap 13 (12-20); Aspartate Amino Transferase 17 U/L (5-31); Bilirubin Total 0.6 mg/dL (0.0-1.0); Blood Urea Nitrogen 14 mg/dL (9-16); Calcium 9.7 mg/dL (8.4-10.2); Carbon Dioxide 27 mmol/L (22-29); Chloride 105 mmol/L (96-108); Cholesterol 229 mg/dL (<200); Estimated Glomerular Filt Rate > 60; Glucose Random 100 mg/dL (60-115); HDL Cholesterol 48 mg/dL (>40); LDL Cholesterol Calculated 150 mg/dL (<100); Potassium 4.5 mmol/L (3.3-5.1); Sodium 140 mmol/L (135-145); Triglycerides 159 mg/dL (<150)
[2023-10-16 09:47] LABS: Reflex LDLD? No
[2023-10-17 10:04] LABS: CA 27.29 40 U/mL (<38)
== END 2023-10-16 08:47 | disposition home or self-care (01) ==
LOC: HO.LAB 08:46
PROVIDERS: PCP Internal Medicine; Visit Provider Internal Medicine Medical Oncology
DX: C50.919 Malignant neoplasm of unspecified site of unspecified female breast (principal)
CPT/HCPCS: 36415; 80053; 80061; 85025; 86300

== ENCOUNTER 2023-10-28 07:55 | Outpatient (REF) | payer OTHER, SELFPAY ==
--- NOTE | ~2023-10-28 | CT_ITS ---
EXAMINATION: CT chest, abdomen and pelvis. CLINICAL INFORMATION: Carcinoma of breast, follow-up pulmonary nodules. COMPARISON: CT scan of chest on 02/05/2023 TECHNIQUE: A multidetector helical CT acquisition of the chest, abdomen and pelvis was obtained following the administration of 85 mL of Omnipaque 350. Multiplanar reformats were acquired and utilized for image interpretation. Coronal and sagittal images were reconstructed from axial image data. Dose reduction technique: One or more of the following individual dose optimization techniques were used including: Automated exposure control, mA and/or kV were adjusted according to patient size or iterative reconstruction. DLP: 579.57 mGy-cm FINDINGS: LUNGS: Persistent reticular branching fibrosis is seen at anterior medial border of left upper lobe apicoposterior segment. Unchanged 3.5 mm and 4 mm calcified granulomas are seen in right upper lobe anterior segment, series 6 image #207, 208. 2.5 mm calcified granuloma is seen at lateral inferior posterior corner of right middle lobe lateral segment at the lung base, series 6 image #295. -Nodule #1 (Series 6, image 245): 6.0 mm solid nodule, lateral pleural border of right middle lobe lateral segment, previously 6.3 mm. PLEURA: No pleural effusion or pneumothorax is seen. PERICARDIUM: No pericardial effusion is seen. MEDIASTINUM AND LYNNE: Right lower paratracheal lymph node is seen measuring 0.6 cm in short axis, series 3 image #19. Right precarinal lymph node is seen measuring 1.0 cm in short axis, series 3 image #22. Enlarged right hilar lymph node is seen measuring 2.1 cm in AP diameter, 1.2 cm in width, series 3 image #25. TRACHEOBRONCHIAL TREE: Trachea and bilateral mainstem bronchi are patent. THORACIC AORTA: The thoracic aorta is normal in size, with scattered atherosclerotic calcifications and smoothly patent. CORONARY ARTERY CALCIFICATIONS: Mild PULMONARY ARTERIES: The main pulmonary arteries show normal enhancement. CHEST WALL AND LOWER NECK: No abnormally enlarged axillary lymph nodes could be seen. The subcutaneous and muscular chest wall are intact with no focal lesion. No abnormal mass lesion could be seen in the visualized lower neck. BONES: No fracture or dislocation. No focal bone lesion diagnostic of metastatic disease could be seen in the thorax. VISUALIZED UPPER ABDOMEN: Bilateral adrenal glands are not enlarged. Fleischner guidelines were followed. EXAMINATION: CT abdomen. FINDINGS: LUNG BASES: Bilateral lung bases are clear. LIVER: A simple cyst is seen at anterior superior capsular border of left hepatic dome segment 4A measuring 0.9 cm in diameter, mean attenuation of 15.7 Hounsfield units. GALLBLADDER AND BILIARY TREE: Gallbladder shows lateral wall enhancing mass lesion protruding into the proximal gallbladder lumen, measuring 2.0 cm in AP diameter, 1.1 cm in width, 0.8 cm in vertical height. The gravitating rim calcified gallstone is seen in the fundus measuring 1.5 cm in diameter. Common bile duct is not dilated. SPLEEN: The spleen is normal in size without focal lesion. PANCREAS: The pancreas appears unremarkable. ADRENAL GLANDS: Adrenal glands are normal in size without focal lesion bilaterally. KIDNEYS: Bilateral kidneys are normal in size with a simple cyst in posterior lateral mid right renal cortex measuring 2.3 cm in diameter, mean attenuation of 10 Hounsfield units, for which no follow up imaging is recommended. BOWELS: There is normal filling of large and small bowel loops with oral contrast all the way down to the descending colon. Normal contrast-filled retrocecal appendix is present. RETROPERITONEUM: No abnormally enlarged retroperitoneal lymph nodes, mass or hematoma could be seen. BLOOD VESSELS: Abdominal aorta is normal in size with extensive atherosclerotic calcifications and smoothly patent. ABDOMINAL WALL: Tiny umbilical hernia containing mesenteric fat is seen. PERITONEUM: There was no ascites. There were no abdominal peritoneal inflammatory changes seen. No free peritoneal air was seen. No abnormally enlarged mesenteric lymph nodes are found. BONES: Grade 1 L5-S1 spondylolisthesis without spondylolysis is seen. No fracture or dislocation. No focal bone lesion diagnostic of metastatic disease could be seen in the lumbar region. EXAMINATION: CT pelvis. FINDINGS: URINARY BLADDER: Urinary bladder fills normally with urine. BOWELS: There is normal filling of large and small bowel loops with oral contrast all the way down to the rectum. There is mild fecal distention of the sigmoid colon. GENITAL ORGANS: No adnexal mass lesion could be seen. The uterus is unremarkable. LYMPH NODES: No abnormally enlarged iliac or inguinal lymph nodes are seen. PERITONEUM: No inflammatory changes, ascites or free peritoneal air are found in the pelvis. BONES: No fracture or dislocation. No focal bone lesion diagnostic of metastatic disease could be seen in the pelvis. Several bilateral gluteal subcutaneous calcified granulomas are present. CT/CT abdomen pelvis w IV con IMPRESSION: 1. No significant interval change in the right middle lobe lung nodule and multiple calcified granulomas in the right lung. 2. Enlarged right hilar and borderline precarinal lymph nodes are seen. 3. Enhancing mass in the lateral wall of the gallbladder and gravitating gallstone in the fundus of the gallbladder. Findings are highly suspicious of gallbladder tumor including carcinoma. Surgical excision should be considered. 4. Extensive atherosclerotic disease of the aorta and its branches.
[2023-10-28] MEDS: iohexoL 350 MG/ML 100 ML INFUS..BTL 85 ML IV (10:20)
[2023-10-28] MEDS: Barium Sulfate Oral (Vanilla) 450 ML ORAL.SUSP 900 ML PO (10:20)
== END 2023-10-28 07:56 | disposition home or self-care (01) ==
LOC: HO.CT 07:55
PROVIDERS: PCP Internal Medicine; Visit Provider Internal Medicine Medical Oncology
DX: R91.8 Other nonspecific abnormal finding of lung field (principal); N63.14 Unspecified lump in the right breast, lower inner quadrant
CPT/HCPCS: 71260; 74177; Q9967

== ENCOUNTER 2023-10-30 08:23 | Outpatient (AMB) | payer OTHER, SELFPAY ==
--- NOTE | 2023-10-30 08:28 | A.OFFPC_ITS ---
Intake Visit Reasons: 2wk F/u~ Allergies Penicillins [PENICILLINS] Allergy (Severe, Verified 10/30/23 08:29) ANAPHYLAXIS, swelling streptomycin [STREPTOMYCIN] Allergy (Severe, Verified 10/30/23 08:29) ANAPHYLAXIS Medication List - Last Reconciled 10/30/23 by Adria Rubio MD [bath stole As directed] cholecalciferol (vitamin D3) 25 mcg PO DAILY clotrimazole-betamethasone 1-0.05 % 1 appl topical ONCE 30 days [compression stockings As directed] gabapentin 300 mg PO BEDTIME naproxen 500 mg PO DAILY PRN omeprazole 20 mg PO BID 90 days psyllium husk (Fiber (psyllium husk)) 0.52 grams PO BID 90 days raloxifene 60 mg PO DAILY tolterodine ER (Detrol LA) 2 mg PO Q24H Tobacco use date assessed: 10/30/23 Dental Screening Dental Screen Date: 10/30/23 Did you have a dental visit in the last 12 months?: Yes Did you have a dental problem in the last 6 months where you did not have access to dental care?: No Was dental information given to patient?: Patient has dentist HPI 2wk F/u~ HPI Details Patient is 62-year-old female this is a telemedicine conference She was started on Detrol 2 mg tablet when she complained of mixed urine incontinence Patient says that, she has not seen much improvement however she do feel the side effect of dry mouth Patient says that dry mouth is not bothering her, I have told her to double the dose to 4 mg if it helps then she may continue otherwise. She was also referred to physical therapy for pelvic floor exercises, she has not made appointment yet Advised patient to make appointment and start the therapy as soon as possible [facility] Medical History Pulmonary nodules Pneumonitis Chest pain Chronic cough Vaginal yeast infection Breast lump on right side at 5 o'clock position History of colon polyps Breast cancer, left (~10/2016) Spondylosis Back pain Neuropathy Surgical History History of esophagogastroduodenoscopy (EGD) History of lumpectomy of right breast (06/26/22) Hx of vein stripping Hx of colonoscopy (~10/2018) S/P breast lumpectomy Family History Mother No problems noted. Father No problems noted. Other No family history of cancer Social History Household Members: Family and Children Housing: House Are you a primary restorative care technician to a significant other at home: No Do you presently have visiting nurse or other home services: No Alcohol intake: never Comment: med with oxycodone 5 mg po in PACU Patient Tobacco Use Status: Never used Tobacco e-Cigarette/Vaping Use: Never Used service: No Current occupational status: disabled Current occupation: rt handed Cognitive needs: No Hearing needs: No Vision needs: Yes Female Reproductive History Menstrual Age of Menarche: 15 Questionnaire Thrive Questionnaire Date Thrive assessed: 04/09/23 AUDIT C Alcohol Use Questionnaire (AUDIT-C) 1. How often do you have a drink containing alcohol?: Never 3. How often do you have six or more drinks on one occasion?: Never Total Score: 0 Score Reviewed/Action Taken: Yes INOCENCIO-7 AMB Questionnaire INOCENCIO-7 Date INOCENCIO - 7 assessed: 04/09/23 Source: Developed by Drs. Andi Kim, Ashley Watson, Donovan Jones and colleagues, with an educational reji from [employer]. Review of Systems Const Denies chills and Denies fever(s) ENT Denies epistaxis and Denies nasal discharge Card Denies chest pain Resp Denies chest congestion, Denies cough and Denies hemoptysis GI Denies diarrhea and Denies nausea Skin/Breast Denies rash Neuro Reports no additional complaints Psych Reports no additional complaints Endo Reports no additional complaints Physical exam (Primary Care) Tobacco/Smoking Status: Tobacco use Status Tobacco use date assessed 10/30/23 10/30/23 08:29 Patient Tobacco Use Status Never used Tobacco 10/30/23 08:29 e-Cigarette/Vaping Use Never Used 10/30/23 08:29 Thrive Assessment: Date of Thrive Assessment Date Thrive assessed 04/09/23 10/30/23 08:29 Telehealth Telehealth Location of provider rendering services: practice address Location of patient: address on file Patient Identification confirmed using: Name, : Yes Telehealth method: video (Attempted) Patient verbally consented to treatment: Yes Patient verbally consented to billing insurance company: Yes Patient informed of any privacy concerns related to visit: Yes Assessment and Plan Assessment & Plan (1) Urine incontinence: Code(s): R32 - Unspecified urinary incontinence Qualifiers: Urinary Incontinence type: mixed stress and urge incontinence Qualified Code(s): N39.46 - Mixed incontinence Plan Patient is 62-year-old female this is a telemedicine conference She was started on Detrol 2 mg tablet when she complained of mixed urine incontinence Patient says that, she has not seen much improvement however she do feel the side effect of dry mouth Patient says that dry mouth is not bothering her, I have told her to double the dose to 4 mg if it helps then she may continue otherwise. She was also referred to physical therapy for pelvic floor exercises, she has not made appointment yet Advised patient to make appointment and start the therapy as soon as possible Coding Level of Care Code Tele Est Pt Level 3 (77927) Diagnoses Mixed stress and urge urinary incontinence N39.46 Urinary Incontinence type: mixed stress and urge incontinence
== END 2023-10-30 09:47 | disposition home or self-care (01) ==
LOC: HO.HMGC 08:23
PROVIDERS: PCP Internal Medicine; Visit Provider Internal Medicine
DX: N39.46 Mixed incontinence (principal)
CPT/HCPCS: 99213

== ENCOUNTER 2023-11-20 10:41 | Outpatient (AMB) | payer OTHER, SELFPAY ==
--- NOTE | 2023-11-20 10:44 | A.OFFVIS_ITS ---
Intake Vital Signs 3 11/20/23 10:52 Height 5 ft 2 in Weight 171 lb 4 oz BMI 31.3 BP 129/77 Blood Pressure Location Lt brachial Position Sitting Pulse 107 H Intake Visit Reasons: ? gallbladder carcinoma Intake Note: Patient is seen in office for evaluation of the gallbladder ? carcinoma. Pt c/o: pain in the upper abdomen with every meal, sometime nausea, vomit, burning, had endoscopy done, sometimes constipation CT:10/28/23 Paving Inspector Required: No Accompanied by: Self / Same As Patient Allergies Penicillins [PENICILLINS] Allergy (Severe, Verified 11/20/23 10:51) ANAPHYLAXIS, swelling streptomycin [STREPTOMYCIN] Allergy (Severe, Verified 11/20/23 10:51) ANAPHYLAXIS Medication List - Last Reconciled 11/20/23 by Mitesh Heaton MD [bath stole As directed] cholecalciferol (vitamin D3) 25 mcg PO DAILY clotrimazole-betamethasone 1-0.05 % 1 appl topical ONCE 30 days [compression stockings As directed] gabapentin 300 mg PO BEDTIME naproxen 500 mg PO DAILY PRN omeprazole 20 mg PO BID 90 days psyllium husk (Fiber (psyllium husk)) 0.52 grams PO BID 90 days raloxifene 60 mg PO DAILY tolterodine ER (Detrol LA) 2 mg PO Q24H HPI HPI Comments 2 History of Present Illness0 Details 62-year-old female patient with a prior history of left breast cancer diagnosed October 2016 now presenting with complaints of upper abdominal pain. The pain began soon after eating with all types of food including liquids. She reports the pain occurring almost immediately after eating but denies nausea or vomiting. She underwent endoscopy 09/22/2023 which revealed: Gastritis, GERD, gastric polyps, colon polyps, diverticulosis, hemorrhoids. A CT abdomen and pelvis was significant for a lateral wall enhancing mass lesion protruding into the proximal gallbladder lumen, measuring 2 cm in AP diameter, 1.1 cm in width, and 0.8 cm in vertical height. Findings are highly suspicious for gallbladder tumor including carcinoma. [facility] Medical History Pulmonary nodules Pneumonitis Chest pain Chronic cough Vaginal yeast infection Breast lump on right side at 5 o'clock position History of colon polyps Breast cancer, left (~10/2016) Spondylosis Back pain Neuropathy Surgical History History of esophagogastroduodenoscopy (EGD) History of lumpectomy of right breast (06/26/22) Hx of vein stripping Hx of colonoscopy (~10/2018) S/P breast lumpectomy Family History Mother No problems noted. Father No problems noted. Other No family history of cancer Social History Household Members: Family and Children Housing: House Are you a primary child care specialist to a significant other at home: No Do you presently have visiting nurse or other home services: No Alcohol intake: never Comment: med with oxycodone 5 mg po in PACU Patient Tobacco Use Status: Never used Tobacco e-Cigarette/Vaping Use: Never Used service: No Current occupational status: disabled Current occupation: rt handed Cognitive needs: No Hearing needs: No Vision needs: Yes Female Reproductive History Menstrual Age of Menarche: 15 Review of Systems Const All systems reviewed & are unremarkable except as noted in HPI and below GI Reports as per HPI, Reports abdominal pain and Reports heartburn Physical Exam Vital Signs: Last Vital Signs Pulse 107 H 11/20/23 10:52 BP 129/77 11/20/23 10:52 BMI result Body Mass Index 31.3 Const General: cooperative and no acute distress Nutritional Appearance: well nourished Orientation/consciousness: patient oriented x3 Limitations: no limitations HEENT Head: Yes normocephalic and Yes atraumatic Ears: hearing grossly normal bilaterally Resp Effort & Inspection: normal respiratory effort, no audible wheezes, no cough and no respiratory distress Cardio Jugular venous distension: no JVD GI Other: Negative Gallardo sign Inspection: Yes normal to inspection Palpation (GI): Soft to palpation, nontender, no guarding and not rigid Skin Other: Warm, dry, no rash Neuro General: patient oriented x3 Extrem General: Yes no clubbing, cyanosis or edema Results Reviewed Results Reviewed: CT/CT abdomen pelvis w IV con IMPRESSION: 1. No significant interval change in the right middle lobe lung nodule and multiple calcified granulomas in the right lung. 2. Enlarged right hilar and borderline precarinal lymph nodes are seen. 3. Enhancing mass in the lateral wall of the gallbladder and gravitating gallstone in the fundus of the gallbladder. Findings are highly suspicious of gallbladder tumor including carcinoma. Surgical excision should be considered. 4. Extensive atherosclerotic disease of the aorta and its branches. 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 I reviewed the CT findings with the patient. Patient will certainly require cholecystectomy along with possible liver resection which would best be treated by a hepatobiliary surgeon. A referral has been sent to the surgical Oncology team at [facility] for further evaluation. I reviewed the plan in detail with the patient; she expressed understanding and agrees with the plan. She will follow-up for her usual breast evaluation. Orders: Referrals 2 Surgical Oncology Referral C23 - Malignant neoplasm of gallbladder Coding Level of Care Code Est Pt Level 4 (89420) Diagnoses Gallbladder cancer C23
[2023-11-20 10:52] VITALS: BP 129/77; PULSE 107; BMI 31.3
== END 2023-11-20 11:21 | disposition home or self-care (01) ==
PROVIDERS: PCP Internal Medicine; Visit Provider Surgery
DX: C23 Malignant neoplasm of gallbladder (principal)
CPT/HCPCS: 99214

== ENCOUNTER → 2023-11-20 10:41 | Outpatient (BNVA) | payer OTHER, SELFPAY | PROVIDERS: PCP Internal Medicine; Visit Provider Surgery | DX: C23 Malignant neoplasm of gallbladder (principal) | CPT/HCPCS: 99212 ==

== ENCOUNTER 2023-11-25 10:08 | Outpatient (REF) | payer OTHER, SELFPAY ==
--- NOTE | ~2023-11-25 | MR_ITS ---
EXAMINATION: MR ABDOMEN WITHOUT AND WITH CONTRAST CLINICAL INFORMATION: Gallbladder mass lesion COMPARISON: CT scan of chest, abdomen and pelvis on 10/28/2023 TECHNIQUE: Examination was performed in a high field strength MRI scanner. Multiplanar multisequence MR imaging of the abdomen was performed without IV contrast enhancement. Multiphasic Axial T1-weighted fat-suppressed images of the upper abdomen were obtained after IV injection of 7.5 mL Gadavist. Coronal T1-weighted fat-suppressed images of the abdomen were obtained following the dynamic axial series. MR cholangiopancreatography was performed with heavily T2 weighted sequences. 3-dimensional reconstruction of image data was performed. This was performed under concurrent direct supervision and monitoring by radiologist. Maximum intensity projection images were constructed. FINDINGS: MR CHOLANGIOPANCREATOGRAPHY: Gallbladder is mildly distended, containing a gravitating gallstone measuring 1.5 cm in diameter, surrounded by T2 hypointense sludge. Newport-shaped enhancing tumor is seen in the lateral wall of gallbladder, measuring 2.6 cm in AP diameter, 0.8 cm in width, 0.5 cm in vertical height. Cystic duct is unremarkable. Bilateral intra hepatic bile ducts, common hepatic duct and common bile duct are normal in size without filling defects. Pancreatic duct is normal in size. LIVER: The liver shows left hepatic dome segment 4A nonenhancing simple cyst measuring 0.8 cm in diameter. The calculated hepatic fat percentage is 17.4%, compatible with moderate hepatic steatosis. PANCREAS: No focal pancreatic lesion with abnormal signal can be seen. SPLEEN: Spleen is normal in size without focal lesion. ADRENAL: Bilateral adrenal glands are normal in shape and size. KIDNEYS: Bilateral kidneys are normal in size with a partially septated posterior lateral mid right renal cortical simple cyst, measuring 2.6 cm in diameter, for which no follow up imaging is recommended. Multilevel posterior lumbar disc protrusion is seen, most prominent at L2-L3. Small umbilical hernia containing mesenteric fat is present. MR/MR abdomen wo/w con IMPRESSION: 1. Newport-shaped enhancing mass lesion in the lateral wall of gallbladder, suspicious of gallbladder tumor, could also represent mural thickening due to chronic inflammation or infection. Surgical excision should be considered due to possible carcinoma. 2. Cholelithiasis and gallbladder sludge are present. 3. No evidence of bile duct dilatation or choledocholithiasis. 4. Moderate hepatic steatosis. 5. Right renal cortical simple cyst is found, for which no follow up imaging is recommended.
[2023-11-25] MEDS: gadobutroL 7.5 ML VIAL IVPUSH (11:25)
== END 2023-11-25 10:09 | disposition home or self-care (01) ==
LOC: HO.MRI 10:08
PROVIDERS: PCP Internal Medicine; Visit Provider Internal Medicine Medical Oncology
DX: K82.8 Other specified diseases of gallbladder (principal)
CPT/HCPCS: 74183; A9585

== ENCOUNTER 2023-12-11 09:18 | Outpatient (AMB) | payer OTHER, SELFPAY ==
--- NOTE | 2023-12-11 09:23 | MHC.OFFVIS ---
Vital Signs 12/11/23 09:28 Height 5 ft 2 in Weight 170 lb BMI 31.1 BP 102/51 L Blood Pressure Location Lt brachial Position Sitting Pulse 98 Intake Visit Reasons: 6 month follow up Intake Note: Patient follow up for chronic diarrhea. Patient cc: abdominal pain with esophagus discomfort,gassy and between diarrhea and constipation. denies any other GI issues for today. [employer] Required: No Accompanied by: Self / Same As Patient Allergies Penicillins [PENICILLINS] Allergy (Severe, Verified 12/11/23 09:22) ANAPHYLAXIS, swelling streptomycin [STREPTOMYCIN] Allergy (Severe, Verified 12/11/23 09:22) ANAPHYLAXIS Medication List - Last Reconciled 12/11/23 by Claudia Santillan MD [bath stole As directed] cholecalciferol (vitamin D3) 25 mcg PO DAILY clotrimazole-betamethasone 1-0.05 % 1 appl topical ONCE 30 days [compression stockings As directed] gabapentin 300 mg PO BEDTIME naproxen 500 mg PO DAILY PRN omega 3-slt-ytt-fish oil 100-160-1,000 mg (Fish Oil) 1 cap PO DAILY omeprazole 20 mg PO BID 90 days psyllium husk (Fiber (psyllium husk)) 0.52 grams PO BID 90 days raloxifene 60 mg PO DAILY tolterodine ER (Detrol LA) 2 mg PO Q24H HPI HPI 6 month follow up: Details: FOLLOW-UP GI CLINIC VISIT FOR THIS 62-YEAR-OLD FEMALE FOR FOLLOW-UP OF CHRONIC DIARRHEA. Pt recently diagnosed with gallbladder cancer and referred to hepatobiliary surgeon at [facility] for resection Surgery is scheduled on 01/14/24 ?CHRONIC ILLNESSES:?hyperlipidemia, Inflammatory [id number], b/l knee osteoarthritis, shoulders ? cervical and Lumbar spondylosis, invasive ductal carcinoma left breast 10/2016, osteopenia, Invasive ductal carcinoma of left breast [facility] reviewed resolution of anemia with H&H of 12.6 & 37.9, NORMAL CHEM PANEL AND LFTS ? 07/19 iron studies were suggestive of anemia of chronic disease with ferritin of 125 ? 07/20 Celiac serologies were negative ? Stool studies were negative for WBC, C diff toxin and ova and parasite ? IMAGING STUDIES: 10/2023 ABD MRI SHOWED: 1. Moneta-shaped enhancing mass lesion in the lateral wall of gallbladder, suspicious of gallbladder tumor, could also represent mural thickening due to chronic inflammation or infection. Surgical excision should be considered due to possible carcinoma. 2. Cholelithiasis and gallbladder sludge are present. 3. No evidence of bile duct dilatation or choledocholithiasis. 4. Moderate hepatic steatosis. 5. Right renal cortical simple cyst is found, for which no follow up imaging is recommended. 02/01/21 ABDOMINAL ULTRASOUND SHOWED: ? LIVER: Diffuse increased echotexture without focal abnormality. ? GALLBLADDER: Gallstones measuring 2.1 cm. No mural thickening or pericholecystic fluid. ? COMMON BILE DUCT: Common hepatic duct measures 0.7 cm. Common bile duct measures 0.4 cm. ? RIGHT KIDNEY: 11.1 cm. An interpolar anechoic cyst measures 2.8 cm. Unremarkable. ? LEFT KIDNEY: 10.1 cm. Unremarkable. ? SPLEEN: 7.6 cm. Unremarkable. ? FREE FLUID: None. ? IMPRESSION: ? 1. Cholelithiasis without evidence for acute cholecystitis. ? 2. Hepatic steatosis. ? ? ? 3. Right renal cyst demonstrates benign features. 03/13/20 [facility] US FROM [facility] WAS REVIEWED:? 1. Stable 2.5 x 2.2 x 2.4 complex septated cyst arising from the right kidney. Follow-up as per clinical indications. Normal left kidney.? 2. Hepatic steatosis. ? 3. 1.7 x 1.1 x 1.2 mm moble gallstone in the gallbladder noted on current study. ENDOSCOPIC STUDIES: 09/22/23 EGD AND COLON SHOWED: Endoscopy Findings: ESOPHAGUS: Tortuous esophagus with increased tertiary contractions without stricture or ring - biopsies were obtained from proximal esophagus to check for EOE. STOMACH: A few 5-7 mm benign appearing polyps in the gastric fundus - biopsied. Mild gastric erythema. Biopsies were obtained. DUODENUM: Normal - biopsied to check for celaic sprue Colonoscopy Findings: One hyperplastic polyp removed random biopsies were obtained from right and left colon to rule put micorscopic colitis Moderate diverticulosis seen in the entire colon Moderate hemorrhoids on retroflexed exam. Plan: Repeat Colonoscopy interval based on path results - in 5 years if polyps are adenomatous and due to a hx of adenomatous colon polyps. 10/2018 COLONOSCOPY SHOWED:? One polyp removed ? Moderate diverticulosis seen in the sigmoid colon ? Moderate hemorrhoids on retroflexed exam. ? Plan: ? Await pathology results ? Patient has an appointment on 12/10/18 in the GI Clinic with Dr Santillan. ? Repeat Colonoscopy interval based on path results in 3 years if ? polyps are adenomatous and 5 years if polyps are hyperplastic (due to personal ? history of breast ca). ? Above findings were reviewed with the patient and colon polyps and ? diverticulosis handouts ? were given in the discharge area ? Colon, transverse polyp, polypectomy: Tubular adenoma. ?TODAY'S VISIT Patient cc: Abdominal pain with esophagus discomfort,gassy and between diarrhea and constipation. Complains of post prandial abdominal pain even after drinking fluids Notes intermittent diarrhea. Pt recently diagnosed with gallbladder cancer and referred to hepatobiliary surgeon at [facility] for resection Surgery is scheduled on 01/14/24 PAST VISIT: EGD and colon results reviewed with the patient. Planning to have cataract surgery. Taking Omeprazole twice daily with adequate control of burning sensation Decreased tea intake to once a day instead of three times a day. Denies diarrhea Decided not to have knee replacement surgery due to concern for complications Continues to have upper abdominal pain and intermittent diarrhea. Notes burning in the esophagus after eating. Notes some blood in the sputum. Cough has resolved. She would like to schedule an EGD and Colon Had pneumonia and chronic cough after a trip to [facility] and [facility]. Cough is better after prednisone and antibiotics Having problems with arthritis and neuropathy. Did not schedule EGD and colonoscopy. Scheduled for breast surgery and planning to schedule a knee replacement surgery in the near future. Complains of intermittent post prandial upper abdminal pain radiating laterally to the back usually 1/2 hour after eating Continues to have intermittent burning and epigastric pain - with or without eating. Diarrhea improved with fibre supplement ? Complains of heartburn, epigastric burning and nausea for the past 2 months. ? Notes regurgitation after eating. ? ? ? Unable to identify any precipitating foods. ?? ? Diarrhea has improved - notes occasionally. ?? ? Trying to control her weight by eating less. ? Abdominal US results were reviewed with the patient. ? Complains of worsening rt lumbar/back pain which is constant and gets worse when she moves. ? ? ? Cramps in hands and feet. ? ? ? Diarrhea resolved with psyllium husk once daily. ? ? ? Complains of weight gain since she was unable to go to the gym ? ? ? Planning to resume going to the Gym - since she has been vaccinated for COVID. ? ? ? She denies RUQ or epigastric pain. ? Patient is followed by Dr. Logan for kidney stones. ? Had a recent abdominal ultrasound [place] and was told that she had gallstones/a liver cyst and advised to follow up with GI. ? Complains of left low back pain. ? Denies epigastric or right upper quadrant pain ? Notes pain when she lies down and walks. ? Unclear if pain is affected by eating. ? Intermittent diarrhea - when she takes spicy foods. ? She notes bloating when she takes milk products and spicy foods. ? 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 Father No problems noted. Other No family history of cancer Social History Household Members: Family and Children Housing: House Are you a primary career information specialist to a significant other at home: No Do you presently have visiting nurse or other home services: No Alcohol intake: never Comment: med with oxycodone 5 mg po in PACU Patient Tobacco Use Status: Never used Tobacco e-Cigarette/Vaping Use: Never Used service: No Current occupational status: disabled Current occupation: rt handed Cognitive needs: No Hearing needs: No Vision needs: Yes Female Reproductive History Menstrual Age of Menarche: 15 Review of Systems Const All systems reviewed & are unremarkable except as noted in HPI and below Physical Exam Vital Signs: Last Vital Signs Pulse 98 12/11/23 09:28 BP 102/51 L 12/11/23 09:28 BMI result Body Mass Index 31.1 Const General: healthy appearing and no acute distress Nutritional Appearance: obese Orientation/consciousness: patient oriented x3 HEENT Head: Yes normal to inspection Ears: hearing grossly normal bilaterally Eyes Sclerae: sclerae normal Pupils: Equal, round and reactive pupils present Neck Neck: Yes normal visual inspection Chest Chest palpation & inspection: normal inspection of the chest Resp Effort & Inspection: normal respiratory effort Auscultation: clear to auscultation bilaterally Cardio Palpation: normal PMI Rate: regular rate Rhythm: regular rhythm Heart sounds: S1 normal heart sound present, S2 normal heart sound present and no murmurs GI Palpation (GI): Soft to palpation, nontender and No hepatosplenomegaly present Auscultation: normal bowel sounds Rectal Exam - Female: deferred Skin General skin exam: no rashes or lesions noted Neuro General: patient oriented x3, gait normal and moves all extremities Cranial nerves: Yes Equal, round and reactive pupils present Psych Appearance: grossly normal Mental Status: mental status grossly normal Assessment & Plan Assessment & Plan (1) Chronic diarrhea: Comment: chronic diarrhea started after she had her colonoscopy in October, - diarrhea has resolved. Her symptoms can be due to infectious colitis or irritable bowel syndrome. She reports intolerance to milk products and lactose intolerance may be contributing to the diarrhea. Stool studies were negative and lab tests for celiac disease were normal. Diarrhea has resolved with psyllium husk once daily. Code(s): K52.9 - Noninfective gastroenteritis and colitis, unspecified Category: Medical (2) History of colon polyps: Comment: 11/17 colonoscopy showed diverticulosis and a 12-15 mm tubular adenoma was removed from the transverse colon. 09/24 One hyperplastic polyp removed during colonoscopy> Repeat colonoscopy advised in 5 years. Code(s): Z86.010 - Personal history of colonic polyps Category: Medical (3) Gallbladder cancer: Code(s): C23 - Malignant neoplasm of gallbladder Category: Medical (4) Generalized postprandial abdominal pain: Code(s): R10.84 - Generalized abdominal pain Category: Medical Plan 62 YF with hyperlipidemia, Inflammatory [id number], b/l knee osteoarthritis, shoulders, cervical and Lumbar spondylosis, invasive ductal carcinoma left breast 10/2016, osteopenia, followed in GI for chronic diarrhea for the past 3 years. Patient states her diarrhea started after she had her colonoscopy. Her symptoms can be due to infectious colitis or irritable bowel syndrome. She reports intolerance to milk products and lactose intolerance may be contributing to the diarrhea.? Stool studies were negative and lab tests for celiac disease were normal. Diarrhea is gradually improving and notes diarrhea has resolved now. Patient had an abdominal US on 03/13/20 at an outside facility which showed a 1.7 cms gallstone, FU US showed an increase in size to 2.1 cms. Pt notes intermittent post prandial upper abdominal pain for the past month - she is being referred to Dr Heaton to be evaluated for a Lap [place]. 12/12/22 Pt was advised to schedule an EGD (burning epigastric pain, painful swallowing) and Colonoscopy (FU of colon polyps). Patient would like to schedule in the summer of 2022 since she is planning to have a knee replacement surgery in the near future 06/12/23 Pt was advised to schedule an EGD (burning epigastric pain, painful swallowing) and Colonoscopy (FU of colon polyps). 09/22/23 EGD and colonoscopy were performed and results as noted above. 10/09/22 EGD and colon results reviewed with the patient. Planning to have cataract surgery. Taking Omeprazole twice daily with adequate control of burning sensation Decreased tea intake to once a day instead of three times a day. Denies diarrhea 12/11/23 Complains of post prandial abdominal pain even after drinking fluids Notes intermittent diarrhea. Pt recently diagnosed with gallbladder cancer and referred to hepatobiliary surgeon at [facility] for resection Surgery is scheduled on 01/14/24 FU in 4 months Medications: New sucralfate (Carafate) 10 mL PO BID PRN 600 mL 1RF abdominal pain 30 days R10.84 - Generalized abdominal pain Carafate (sucralfate) 10 mL PO BID PRN 840 mL 1RF abdominal pain 30 days NS R10.84 - Generalized abdominal pain
[2023-12-11 09:28] VITALS: BP 102/51; PULSE 98; BMI 31.1
== END 2023-12-11 10:23 | disposition home or self-care (01) ==
PROVIDERS: PCP Internal Medicine; Visit Provider Internal Medicine Gastroenterology
DX: K52.9 Noninfective gastroenteritis and colitis, unspecified (principal); Z86.010 Personal history of colon polyps; C23 Malignant neoplasm of gallbladder; R10.84 Generalized abdominal pain
CPT/HCPCS: 99214

== ENCOUNTER → 2023-12-11 09:18 | Outpatient (BNVA) | payer OTHER, SELFPAY | PROVIDERS: PCP Internal Medicine; Visit Provider Internal Medicine Gastroenterology | DX: K52.9 Noninfective gastroenteritis and colitis, unspecified (principal); R10.84 Generalized abdominal pain; Z86.010 Personal history of colon polyps | CPT/HCPCS: 99212 ==

== ENCOUNTER 2024-02-11 09:08 | Outpatient (AMB) | payer OTHER, SELFPAY ==
--- NOTE | 2024-02-11 09:10 | MHC.OFFVIS ---
Vital Signs 02/11/24 09:11 Height 5 ft 2 in Weight 164 lb 3.91 oz BMI 30.0 BP 140/70 H Blood Pressure Location Rt brachial Position Sitting Pulse 101 H Pulse Source Pulse Oximeter Pulse Oximetry (%) 98 Oxygen Delivery Method Room Air Intake Visit Reasons: FMS Intake Note: Patient last seen 05/13/23, presents today for FMS follow up. Reports new surgery January 13 at [facility]. She returned to [facility] 5 days after being discharged and was found to have a blood clot. 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 Modeler Required: No Accompanied by: Self / Same As Patient Allergies Penicillins [PENICILLINS] Allergy (Severe, Verified 02/11/24 09:21) ANAPHYLAXIS, swelling streptomycin [STREPTOMYCIN] Allergy (Severe, Verified 02/11/24 09:21) ANAPHYLAXIS Medication List - Last Reconciled 02/11/24 by Isai Wilson MD [bath stole As directed] Carafate (sucralfate) 10 mL PO BID PRN 30 days NS cholecalciferol (vitamin D3) 25 mcg PO DAILY clotrimazole-betamethasone 1-0.05 % 1 appl topical ONCE 30 days [compression stockings As directed] enoxaparin mg subcut BID gabapentin 300 mg PO BEDTIME naproxen 500 mg PO DAILY PRN omega 9-xcb-njs-fish oil 100-160-1,000 mg (Fish Oil) 1 cap PO DAILY omeprazole 20 mg PO BID 90 days psyllium husk (Fiber (psyllium husk)) 0.52 grams PO BID 90 days raloxifene 60 mg PO DAILY tolterodine ER (Detrol LA) 2 mg PO Q24H tramadol 50 mg (10 mL) PO TID PRN HPI Comments Details: 63-year-old female with osteoarthritis returns for follow-up. Patient had surgery for gallbladder cancer removal as well as double lymph nodes removal. She was told by her surgeon that some of the lymph nodes are cancers and she might need chemotherapy. She has an appointment with Dr. Doan soon to further discuss. She states that she does not want to have anymore chemotherapy. She did not have a good experience with her chemotherapy when she had her breast cancer. This is to be discussed with Dr. Doan tomorrow. A week after discharge found to have multiple blood clots and was started on Lovenox. She states that has been having some right ankle pain. She also gets intermittent joint pains in her wrists, neck. She takes Tylenol when needed. She takes naproxen once every few weeks. Initial history: This is a 62-year-old female with a past medical history of breast cancer s/p chemoradiation, tamoxifen for 5 years, recently changed to Raloxifen, history of osteoporosis was on alendronate for 5 years, recently discontinued who presents for evaluation of diffuse pain. Patient was evaluated by Orthopedics and Pain Management for bilateral knee osteoarthritis. She has received cortisone and gel injections without much improvement. Orthopedics recommended arthroplasty but patient did not want to proceed. Pain management suggested a procedure but patient also did not want to proceed. Patient continues to have pain in her knees, she also has pain in her hands, wrists, ankles. She has pain and morning stiffness of her hands lasting a few hours. Patient takes naproxen 500 mg 1 tablet every 1-2 days with some improvement. She is unaware of any family history of autoimmune rheumatic disease. She has tingling and numbness of the tips of her fingers and her toes. [facility] Medical History (Updated 02/11/24 @ 09:35 by Isai Wilson MD) Pulmonary nodules Pneumonitis Chest pain Chronic cough Vaginal yeast infection Breast lump on right side at 5 o'clock position History of colon polyps Breast cancer, left (~10/2016) Spondylosis Back pain Neuropathy Surgical History History of esophagogastroduodenoscopy (EGD) History of lumpectomy of right breast (06/26/22) Hx of vein stripping Hx of colonoscopy (~10/2018) S/P breast lumpectomy Family History Mother No problems noted. Father No problems noted. Other No family history of cancer Social History Household Members: Family and Children Housing: House Are you a primary personal care assistant to a significant other at home: No Do you presently have visiting nurse or other home services: No Alcohol intake: never Comment: med with oxycodone 5 mg po in PACU Patient Tobacco Use Status: Never used Tobacco e-Cigarette/Vaping Use: Never Used service: No Current occupational status: disabled Current occupation: rt handed Cognitive needs: No Hearing needs: No Vision needs: Yes Female Reproductive History Menstrual Age of Menarche: 15 Review of Systems ENT Reports neck pain Musc Reports back pain, Reports arthralgias, Reports limited range of motion, Reports neck pain, Reports numbness, Reports stiffness and Reports tingling Neuro Reports numbness and Reports tingling Physical Exam Vital Signs: Last Vital Signs Pulse 101 H 02/11/24 09:11 BP 140/70 H 02/11/24 09:11 Pulse Ox 98 02/11/24 09:11 Oxygen Delivery Method Room Air 02/11/24 09:11 BMI result Body Mass Index 30.0 Const General: cooperative, healthy appearing and comfortable Nutritional Appearance: obese Orientation/consciousness: patient oriented x3 Limitations: no limitations HEENT Head: Yes normocephalic and Yes atraumatic Mouth: moist mucous membranes Resp Effort & Inspection: normal respiratory effort and able to speak in complete sentences Cardio Rate: regular rate Neuro General: patient oriented x3 Extrem Other: Mild lymphedema of left upper extremity No active synovitis today Assessment & Plan Assessment & Plan (1) Generalized osteoarthritis: Code(s): M15.9 - Polyosteoarthritis, unspecified Category: Medical Plan: This is 63-year-old female with generalized osteoarthritis who presents for follow-up. Continues to have intermittent joint pains that improved with Tylenol. Uses naproxen rarely. Patient was recently diagnosed with gallbladder cancer, gallbladder was removed but she was told that some of the lymph nodes are cancers and she might need chemotherapy. She has an appointment with Dr. Doan tomorrow. Seven days after discharge she was found to have blood clots and she is on Lovenox. Advised patient that combining naproxen with Lovenox can cause bleeding. Can continue to use Tylenol. Follow-up as needed Plan I spent 18 minutes reviewing patient's chart, evaluating patient, counseling patient and documenting in the chart Coding Level of Care Code Est Pt Level 3 (34073) Diagnoses Generalized osteoarthritis M15.9
[2024-02-11 09:11] VITALS: BP 140/70; PULSE 101; O2SAT 98
== END 2024-02-11 09:31 | disposition home or self-care (01) ==
LOC: HO.RHE 09:08
PROVIDERS: PCP Internal Medicine; Visit Provider Student in an Organized Health Care Education/Training Program
DX: M15.9 Polyosteoarthritis, unspecified (principal)
CPT/HCPCS: 99213

== ENCOUNTER → 2024-02-11 09:08 | Outpatient (BNVA) | payer OTHER, SELFPAY | PROVIDERS: PCP Internal Medicine; Visit Provider Student in an Organized Health Care Education/Training Program | DX: M15.9 Polyosteoarthritis, unspecified (principal) | CPT/HCPCS: 99212 ==

== ENCOUNTER 2024-03-09 08:43 | Outpatient (AMB) | payer OTHER, SELFPAY ==
--- NOTE | 2024-03-09 08:44 | A.OFFVIS_ITS ---
Vital Signs 03/09/24 08:47 Height 5 ft 4 in Weight 164 lb BMI 28.1 Intake Visit Reasons: 1 year breast exam Intake Note: This patient presents for a yearly breast examination. Patient c/o; reports no breast complaints. Radiology Physician Required: No Accompanied by: Self / Same As Patient Allergies Penicillins [PENICILLINS] Allergy (Severe, Verified 03/09/24 08:48) ANAPHYLAXIS, swelling streptomycin [STREPTOMYCIN] Allergy (Severe, Verified 03/09/24 08:48) ANAPHYLAXIS Medication List - Last Reconciled 03/09/24 by Mitesh Heaton MD apixaban (Eliquis) 5 mg PO BID [bath stole As directed] cholecalciferol (vitamin D3) 25 mcg PO DAILY clotrimazole-betamethasone 1-0.05 % 1 appl topical ONCE 30 days [compression stockings As directed] enoxaparin 80 mg (0.8 mL) subcut Q12H enoxaparin 80 mg subcut BID gabapentin 300 mg PO BEDTIME omega 0-ouz-kxa-fish oil 100-160-1,000 mg (Fish Oil) 1 cap PO DAILY omeprazole 20 mg PO BID 90 days psyllium husk (Fiber (psyllium husk)) 0.52 grams PO BID 90 days raloxifene 60 mg PO DAILY HPI Comments Details: 63-year-old female initially evaluated in 10/01/2016 for a new density in the 5 o'clock location of the left breast. She underwent ultrasound-guided core biopsy of the left breast on 10/04/2016. Pathology revealed an invasive ductal carcinoma, ER/NE positive, HER2 Irasema negative. A left breast lumpectomy and sentinel node biopsy performed on 10/23/2016 revealed a well differentiated invasive ductal carcinoma 0.8 x 0.9 cm, 1 of 8 lymph nodes with metastatic disease (pT1b pN1a (sn) pMx). She denies a family history of breast cancer. She underwent chemotherapy and radiation therapy. She recently underwent cholecystectomy with partial liver resection on 01/14/2024 for a gallbladder carcinoma ([id number]) at [facility]. She is declined chemotherapy due to her persistent neuropathy. Her most recent mammogram of 12/30/2022 revealed no significant changes with prior treatment changes in the left breast (BI-RADS 2). She has scheduled for a follow-up mammogram on 03/23/2024. She was diagnosed with a pulmonary embolus and is currently on Eliquis. She has scheduled for a chest CT later today. [facility] Medical History Pulmonary nodules Pneumonitis Chest pain Chronic cough Vaginal yeast infection Breast lump on right side at 5 o'clock position History of colon polyps Breast cancer, left (~10/2016) Spondylosis Back pain Neuropathy Surgical History History of esophagogastroduodenoscopy (EGD) History of lumpectomy of right breast (06/26/22) Hx of vein stripping Hx of colonoscopy (~10/2018) S/P breast lumpectomy Family History Mother No problems noted. Father No problems noted. Other No family history of cancer Social History Household Members: Family and Children Housing: House Are you a primary cattle care worker to a significant other at home: No Do you presently have visiting nurse or other home services: No Alcohol intake: never Comment: med with oxycodone 5 mg po in PACU Patient Tobacco Use Status: Never used Tobacco e-Cigarette/Vaping Use: Never Used service: No Current occupational status: disabled Current occupation: rt handed Cognitive needs: No Hearing needs: No Vision needs: Yes Female Reproductive History Menstrual Age of Menarche: 15 Review of Systems Const All systems reviewed & are unremarkable except as noted in HPI and below Card Reports dyspnea Resp Denies cough, Denies hemoptysis and Reports dyspnea GI Reports as per HPI, Reports abdominal pain and Reports heartburn Denies nipple discharge Skin/Breast Denies breast skin changes, Denies breast pain, Denies breast mass and Denies nipple discharge Physical Exam Vital Signs: BMI result Body Mass Index 28.1 Const General: cooperative and no acute distress Nutritional Appearance: well nourished Orientation/consciousness: patient oriented x3 Limitations: no limitations HEENT Head: Yes normocephalic and Yes atraumatic Ears: hearing grossly normal bilaterally Chest Other: Left breast: No skin change, no nipple retraction, no nipple discharge, no palpable mass, no enlarged lymph nodes. Well-healed incision in the lower outer quadrant Right breast: No skin change, no nipple retraction, no nipple discharge, no palpable mass, no enlarged lymph nodes Resp Effort & Inspection: normal respiratory effort, no audible wheezes, no cough and no respiratory distress Cardio Jugular venous distension: no JVD GI Other: Well-healed right subcostal incision without hernia Inspection: Yes normal to inspection Palpation (GI): Soft to palpation, nontender, no guarding and not rigid Skin Other: Warm, dry, no rash Neuro General: patient oriented x3 Extrem General: Yes no clubbing, cyanosis or edema Assessment & Plan Assessment & Plan (1) Breast cancer: Code(s): C50.919 - Malignant neoplasm of unspecified site of unspecified female breast Category: Medical Plan 63-year-old female patient with a prior history of left infiltrating ductal carcinoma status post lumpectomy and sentinel node biopsy followed by chemotherapy and radiation therapy. Examination today revealed no suspicious findings in either breast. Her most recent mammogram of 12/30/2022 reveals no new suspicious findings (BI-RADS 2). She is scheduled for follow-up mammogram on 03/23/2024. I recommended follow-up examination in 6 months, sooner p.r.n.. Coding Level of Care Code Est Pt Level 3 (57424) Diagnoses Breast cancer C50.919
[2024-03-09 08:47] VITALS: BMI 28.1
== END 2024-03-09 09:00 | disposition home or self-care (01) ==
PROVIDERS: PCP Internal Medicine; Visit Provider Surgery
DX: Z85.3 Personal history of malignant neoplasm of breast (principal)
CPT/HCPCS: 99213

== ENCOUNTER 2024-03-09 13:39 | Outpatient (REF) | payer OTHER, SELFPAY ==
--- NOTE | ~2024-03-09 | CT_ITS ---
EXAMINATION: CT ANGIOGRAM OF THE CHEST WITH AND WITHOUT CONTRAST (CT PULMONARY ANGIOGRAM FOR PE) CLINICAL INFORMATION: Reason for Exam History of PE. Shortness of breath. COMPARISON: None available. TECHNIQUE: Prior to contrast administration, noncontrast localization images were obtained. Subsequently, multidetector volumetric imaging was performed from the thoracic inlet to below the diaphragms following the administration of 80 mL Omnipaque 350 intravenous contrast. No contrast reaction reported Sagittal, coronal, and MIP oblique sagittal reformatted images were obtained on the CT workstation, uploaded to PACS, and reviewed. This CT examination was performed using dose optimization techniques as appropriate, variously including the following: *Automated exposure control *Adjustment of mA and/or kV according to patient size (this includes techniques or standardized protocols for targeted exams where dose is matched to indication/reason for exam; i.e. extremities or head) *Use of iterative reconstruction technique Total exam dose-length product 98 mGy-cm FINDINGS: QUALITY OF STUDY/CONTRAST BOLUS: Satisfactory. PULMONARY ARTERIES: No pulmonary emboli. THORACIC AORTA: No aneurysm. LUNG: The lungs are well-expanded with patchy groundglass attenuation left lung apex anterior segment. There is platelike atelectasis right lower lobe superior segment and right lung base. PLEURA: No pleural effusion or pneumothorax. MEDIASTINUM: Normal heart size. No pericardial effusion. No hilar or mediastinal lymphadenopathy. No evidence of septal bowing or right heart strain. CORONARY ARTERY CALCIFICATION: There is mild coronary artery calcification present. CHEST WALL/AXILLA: No axillary or internal mammary lymphadenopathy. OSSEOUS STRUCTURES: No aggressive lytic or sclerotic process seen. UPPER ABDOMEN: Visualized liver, spleen is unremarkable. No reflux of contrast into the hepatic veins to suggest elevated right heart pressures. CT/CT angio chest PE protocol IMPRESSION: 1. No evidence of PE. 2. No evidence of aortic aneurysm. 3. Patchy groundglass attenuation left lung apex. 4. Platelike atelectasis right lower lobe. VTE: negative.
[2024-03-09] MEDS: iohexoL 350 MG/ML 100 ML INFUS..BTL 65 ML IV (14:23)
== END 2024-03-09 13:40 | disposition home or self-care (01) ==
LOC: HO.CT 13:39
PROVIDERS: PCP Internal Medicine; Visit Provider Internal Medicine Medical Oncology
DX: I26.99 Other pulmonary embolism without acute cor pulmonale (principal)
CPT/HCPCS: 71275; 99212; Q9967

== ENCOUNTER 2024-03-23 09:34 | Outpatient (REF) | payer OTHER, SELFPAY ==
--- NOTE | ~2024-03-23 | MM_ITS ---
EXAMINATION: MM SCREENING DIGITAL BREAST TOMOSYNTHESIS, BILATERAL CLINICAL INFORMATION: Screening. Asymptomatic. The patient is status post surgical treatment for left breast cancer. COMPARISON: Mammography: This study is compared with prior exams dating back to 2019. TECHNIQUE: Digital breast tomosynthesis is performed in both the craniocaudal and mediolateral oblique views along with computer-aided detection (CAD). Synthesized 2D images are generated from the tomosynthesis. FINDINGS: There are scattered areas of fibroglandular density (ACR BI-RADS breast composition Category b). There are no significant masses, abnormal calcifications, or other abnormalities. Postsurgical changes in the left breast. There are bilateral benign calcifications. MM/MM tomosynthesis screening BI IMPRESSION: No mammographic evidence of malignancy. ASSESSMENT: BI-RADS BI-RADS 2 - Benign Findings RECOMMENDATION: Routine annual mammography screening. 1 year F/U This examination should not preclude the clinical evaluation of a suspicious palpable abnormality. This patient's information was entered into a reminder system with a target due date for their next mammogram.
== END 2024-03-23 09:35 | disposition home or self-care (01) ==
LOC: HO.MAMMO 09:34
PROVIDERS: PCP Internal Medicine; Visit Provider Internal Medicine
DX: Z12.31 Encounter for screening mammogram for malignant neoplasm of breast (principal)
CPT/HCPCS: 77063; 77067

== ENCOUNTER → 2024-03-23 10:00 | Outpatient (BNV) | payer OTHER, SELFPAY | PROVIDERS: PCP Internal Medicine; Visit Provider Radiology Diagnostic Radiology | DX: Z12.31 Encounter for screening mammogram for malignant neoplasm of breast (principal) | CPT/HCPCS: 77063; 77067 ==

== ENCOUNTER 2024-04-02 15:12 | Outpatient (REF) | payer OTHER, SELFPAY ==
--- NOTE | ~2024-04-02 | MR_ITS ---
EXAMINATION: MR ABDOMEN WITHOUT AND WITH CONTRAST CLINICAL INFORMATION: Follow-up gallbladder cancer prior to chemotherapy COMPARISON: MRI abdomen 11/25/2023 TECHNIQUE: MRI of the abdomen before and after the IV administration of 6 mL of Gadavist was obtained using routine sequences. FINDINGS: Essentially nondiagnostic postcontrast differences secondary to motion degradation. LUNG BASES: The visualized lung bases are unremarkable. KIDNEYS AND URETERS: Bosniak 1 and T1 bright Bosniak 2 renal cysts, no imaging follow-up recommended. GALLBLADDER: Status post cholecystectomy. LIVER AND BILIARY TREE: Simple hepatic cyst. Moderate heterogeneous loss of signal on opposed phase imaging suggesting hepatic steatosis. No intra or extrahepatic biliary duct dilatation. Motion degraded postcontrast sequences essentially of nondiagnostic quality and limits assessment for any residual disease. There is some background heterogeneous arterial phase hyperenhancement in the gallbladder fossa which could reflect sequelae of background heterogeneous fatty infiltration as there is no chasity definite abnormal T2 correlate though residual disease cannot be excluded given the nondiagnostic quality of the postcontrast exam. PANCREAS: Unremarkable SPLEEN: Unremarkable ADRENAL GLANDS: Unremarkable GASTROINTESTINAL TRACT: Colonic diverticulosis without evidence of diverticulitis. LYMPH NODES: No lymphadenopathy. VASCULAR: Unremarkable ABDOMINAL WALL: Midline ventral surgical scar. OSSEOUS STRUCTURES: Multilevel degenerative disc disease. MR/MR abdomen wo/w con IMPRESSION: 1. Motion degraded postcontrast sequences essentially of nondiagnostic quality and limits assessment for any residual disease. There is some background heterogeneous arterial phase hyperenhancement in the gallbladder fossa status post cholecystectomy which could reflect sequelae of background heterogeneous fatty infiltration as there is no chasity definite abnormal T2 correlate though residual disease cannot be excluded given the nondiagnostic quality of the postcontrast exam. Given limitations, consider a multiphase postcontrast CT abdomen which would be less sensitive to the limitations of motion to assess if there is any residual disease or repeat short interval follow-up MR abdomen. 2. Moderate heterogeneous loss of signal on opposed phase imaging suggesting hepatic steatosis.
[2024-04-02] MEDS: gadobutroL 7.5 ML VIAL IVPUSH (17:17)
== END 2024-04-02 15:13 | disposition home or self-care (01) ==
LOC: HO.MRI 15:12
PROVIDERS: PCP Internal Medicine; Visit Provider Internal Medicine Medical Oncology
DX: C23 Malignant neoplasm of gallbladder (principal)
CPT/HCPCS: 74183; A9585

== ENCOUNTER 2024-04-14 13:20 | Outpatient (AMB) | payer OTHER, SELFPAY ==
[2024-04-14 13:35] VITALS: BP 134/70; PULSE 110; O2SAT 98; BMI 29.3
--- NOTE | 2024-04-14 13:35 | A.OFFPC_ITS ---
Vital Signs 04/14/24 13:35 Height 5 ft 4 in Weight 170 lb 8 oz BMI 29.3 BP 134/70 Blood Pressure Location Rt brachial Position Sitting Pulse 110 H Pulse Source Pulse Oximeter Pulse Oximetry (%) 98 Oxygen Delivery Method Room Air Intake Visit Reasons: Cataract surgery 05/10~ EKG Allergies Penicillins [PENICILLINS] Allergy (Severe, Verified 04/14/24 13:37) ANAPHYLAXIS, swelling streptomycin [STREPTOMYCIN] Allergy (Severe, Verified 04/14/24 13:37) ANAPHYLAXIS Medication List - Last Reconciled 04/14/24 by Adria Rubio MD apixaban (Eliquis) 5 mg PO BID [bath stole As directed] capecitabine 1,000 mg (2 x 500 mg) PO BID cholecalciferol (vitamin D3) 25 mcg PO DAILY clotrimazole-betamethasone 1-0.05 % 1 appl topical ONCE 30 days [compression stockings As directed] enoxaparin 80 mg (0.8 mL) subcut Q12H enoxaparin 80 mg subcut BID gabapentin 300 mg PO BEDTIME omega 1-unk-vtf-fish oil 100-160-1,000 mg (Fish Oil) 1 cap PO DAILY omeprazole 20 mg PO BID 90 days ondansetron 8 mg PO Q8H psyllium husk (Fiber (psyllium husk)) 0.52 grams PO BID 90 days raloxifene 60 mg PO DAILY Tobacco use date assessed: 04/14/24 Dental Screening Dental Screen Date: 04/14/24 Did you have a dental visit in the last 12 months?: No Was dental information given to patient?: No HPI Cataract surgery 05/10~ EKG HPI Details Patient is 63 year female who is going through chemotherapy currently for breast cancer And has developed cataract which is getting worse Patient need cataract surgery and is scheduled to have left eye done on April 26 by [facility] and Right eye will be done 05/10/2024 Patient is in her usual state of health There is no fever no chills no nausea no vomiting She is getting Chemotherapy due to breast cancer, which is causing some nausea EKG done today shows sinus rhythm with infrequent premature supraventricular complexes No acute findings Patient is stable for cataract surgery She will return end of May we will repeat the EKG again and refer to Cardiology. Meanwhile patient is requesting assistance with getting residence I have sent message to our community navigator to assist patient. [facility] Medical History Pulmonary nodules Pneumonitis Chest pain Chronic cough Vaginal yeast infection Breast lump on right side at 5 o'clock position History of colon polyps Breast cancer, left (~10/2016) Spondylosis Back pain Neuropathy Surgical History History of esophagogastroduodenoscopy (EGD) History of lumpectomy of right breast (06/26/22) Hx of vein stripping Hx of colonoscopy (~10/2018) S/P breast lumpectomy Family History Mother No problems noted. Father No problems noted. Other No family history of cancer Social History Household Members: Family and Children Housing: House Are you a primary home care and home health aides teacher to a significant other at home: No Do you presently have visiting nurse or other home services: No Alcohol intake: never Comment: med with oxycodone 5 mg po in PACU Patient Tobacco Use Status: Never used Tobacco e-Cigarette/Vaping Use: Never Used service: No Current occupational status: disabled Current occupation: rt handed Cognitive needs: No Hearing needs: No Vision needs: Yes Female Reproductive History Menstrual Age of Menarche: 15 Questionnaire PHQ-9 Over the last 2 weeks, how often have you been bothered by any of the following problems? 1. Little interest or pleasure in doing things: several days 2. Feeling down, depressed, or hopeless: several days 3. Trouble falling or staying asleep, or sleeping too much: nearly every day 4. Feeling tired or having little energy: not at all 5. Poor appetite or overeating: not at all 6. Feeling bad about yourself - or that you are a failure or have let yourself or your family down: several days 7. Trouble concentrating on things, such as reading the newspaper or watching television: several days 8. Moving or speaking so slowly that other people could have noticed. Or the opposite - being so fidgety or restless that you have been moving around a lot more than usual: not at all 9. Thoughts that you would be better off or of hurting yourself in some way: not at all Total score: 7 Depression Screening Interpretation: Negative Depression Screening Done: Yes 80069 - PHQ-9 Billing: Yes Source: Developed by Drs. Andi Kim, Ashley Watson, Donovan Jones and colleagues, with an educational reji from [employer]. Thrive Questionnaire Date Thrive assessed: 04/14/24 I am a: Patient What is your living situation today?: I choose not to answer this question Within the past 12 months, did the food you bought not last and you didn't have the money to get more?: I choose not to answer this question Within the past 12 months, did you worry whether your food would run out before you got money to buy more?: I choose not to answer this question Do you have trouble paying for medicines?: No Do you have trouble getting transportation to medical appointments?: No Do you have trouble paying your heating and electricity bill?: I choose not to answer this question Do you have trouble taking care of your child, family member or friend?: I choose not to answer this question Do you have trouble with day-to-day activities such as bathing, preparing meals, shopping, managing finances, etc.?: I choose not to answer this question Are you currently unemployed and looking for a job?: I choose not to answer this question Are you interested in more education?: I choose not to answer this question Please select the resources that you would like help with: None Currently or been in a relationship where the following occur: I choose not to answer THRIVE Score: 0 AUDIT C Alcohol Use Questionnaire (AUDIT-C) 1. How often do you have a drink containing alcohol?: Never 3. How often do you have six or more drinks on one occasion?: Never Total Score: 0 Score Reviewed/Action Taken: Yes INOCENCIO-7 AMB Questionnaire INOCENCIO-7 Date INOCENCIO - 7 assessed: 04/14/24 Feeling nervous, anxious, or on edge: 0 = Not at all Not being able to stop or control worryin = Not at all Worrying too much about different things: 0 = Not at all Trouble relaxin = Not at all Being so restless that it is hard to sit still: 0 = Not at all Becoming easily annoyed or irritable: 0 = Not at all Feeling afraid as if something awful might happen: 0 = Not at all Total INOCENCIO-7 score (0-4 normal; 5-9 mild; 10-14 moderate; 15-21 severe): 0 Source: Developed by Drs. Andi Kim, Ashely Watson, Donovan Jones and colleagues, with an educational reji from [employer]. INOCENCIO-7 Assessment Billing INOCENCIO-7 Assessment Tool: INOCENCIO-7 Assessment 47917 Review of Systems Const Denies chills and Denies fever(s) ENT Denies epistaxis and Denies nasal discharge Card Denies chest pain Resp Denies chest congestion, Denies cough and Denies hemoptysis GI Denies diarrhea and Denies nausea Skin/Breast Denies rash Neuro Reports no additional complaints Psych Reports no additional complaints Endo Reports no additional complaints Physical exam (Primary Care) Vital Signs: Last Vital Signs Pulse 110 H 04/14/24 13:35 BP 134/70 04/14/24 13:35 Pulse Ox 98 04/14/24 13:35 Oxygen Delivery Method Room Air 04/14/24 13:35 BMI result Body Mass Index 29.3 Tobacco/Smoking Status: Tobacco use Status Tobacco use date assessed 04/14/24 04/14/24 13:39 Patient Tobacco Use Status Never used Tobacco 04/14/24 13:39 e-Cigarette/Vaping Use Never Used 04/14/24 13:39 PHQ-9: PHQ-9 Score PHQ-9: Total score 7 04/14/24 13:39 Depression Screening Interpretation: Negative Thrive Assessment: Date of Thrive Assessment Date Thrive assessed 04/14/24 04/14/24 13:39 Currently or been in a relationship where the following occur: I choose not to answer Const General: cooperative, comfortable and no acute distress Orientation/consciousness: patient oriented x3 HENMT Head: Yes normocephalic Eyes General: appearance normal, both eyes and all related structures Neck Neck: Yes supple Resp Effort & Inspection: normal respiratory effort, no cough and no stridor Cardio Rhythm: regular rhythm Heart sounds: S1 normal heart sound present and S2 normal heart sound present Skin General skin exam: turgor normal Neuro General: patient oriented x3, tone normal and moves all extremities Extrem Right lower extremity: no edema Left lower extremity: no edema Office Procedures EKG [id number], Complete Assessment and Plan Assessment & Plan (1) Pre-op evaluation: Code(s): Z01.818 - Encounter for other preprocedural examination (2) Cataract: Code(s): H26.9 - Unspecified cataract Qualifiers: Cataract type: age-related Age-related cataract type: other Laterality: bilateral Qualified Code(s): H25.89 - Other age-related cataract (3) Cardiac arrhythmia: Code(s): I49.9 - Cardiac arrhythmia, unspecified Qualifiers: Arrhythmia type: other supraventricular tachycardia Qualified Code(s): I47.19 - Other supraventricular tachycardia Plan Patient is 63 year female who is going through chemotherapy currently for breast cancer And has developed cataract which is getting worse Patient need cataract surgery and is scheduled to have left eye done on April 26 by [facility] and Right eye will be done 05/10/2024 Patient is in her usual state of health There is no fever no chills no nausea no vomiting She is getting Chemotherapy due to breast cancer, which is causing some nausea EKG done today shows sinus rhythm with infrequent premature supraventricular complexes No acute findings Patient is stable for cataract surgery She will return end of May we will repeat the EKG again and refer to Cardiology. Meanwhile patient is requesting assistance with getting residence I have sent message to our community navigator to assist patient. Orders: Orders AMB EKG-In Office Today I47.19 - Other supraventricular tachycardia, Z01.818 - Encounter for other preprocedural examination Coding Level of Care Code Est Pt Level 4 (67260) Diagnoses Pre-op evaluation Z01.818 Other age-related cataract of both eyes H25.89 Cataract type: age-related Age-related cataract type: other Laterality: bilateral Other supraventricular tachycardia I47.19 Arrhythmia type: other supraventricular tachycardia CPT Codes EKG - CPT: 46363-[id number], Complete ([id number]) Additional Codes INOCENCIO-7 Assessment Billing - INOCENCIO-7 Assessment Tool: INOCENCIO-7 Assessment 20252 ([id number])
== END 2024-04-14 14:06 | disposition home or self-care (01) ==
PROVIDERS: PCP Internal Medicine; Visit Provider Internal Medicine
DX: H25.89 Other age-related cataract (principal); I47.19 Other supraventricular tachycardia; Z01.818 Encounter for other preprocedural examination
CPT/HCPCS: 93000; 99214

== ENCOUNTER 2024-04-26 06:26 | Day surgery (SDC) | payer OTHER, SELFPAY ==
[2024-04-22 07:18] VITALS: BMI 29.2
[2024-04-26 07:43] VITALS: BP 124/71; PULSE 78; RESP 16; TEMP 36.2; O2SAT 99
[2024-04-26] MEDS: Tetracaine HCl/PF 0.5% Oph Sol 4 ML DROPS 1 DROP EYE-LEFT (07:56)
[2024-04-26] MEDS: Cyclopentolate 1 % Ophth Sol 2 ML DRPBTL 1 DROP EYE-LEFT ×3 (07:56→08:02)
[2024-04-26] MEDS: Tropicamide 1 % Ophth Sol 3 ML BTL 1 DROP EYE-LEFT ×3 (07:57→08:03)
[2024-04-26] MEDS: Ketorolac Tromethamine 0.5% Op 10 ML DROPS 1 DROP EYE-LEFT ×3 (07:58→08:03)
[2024-04-26] MEDS: Phenylephrine HCL 2.5% Oph SoL 2 ML BOTTLE 1 DROP EYE-LEFT ×3 (07:59→08:04)
[2024-04-26] MEDS: Lactated Ringers 500 ML 50 ML IV (08:19)
--- NOTE | 2024-04-26 08:30 | HO.ANESPROP2 ---
[facility] Active Problems Active Problems: All Active Problems Cardiac arrhythmia (Acute) Cataract (Acute) Pre-op evaluation (Acute) 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Acute) Generalized osteoarthritis (Acute) Generalized postprandial abdominal pain (Acute) 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Acute) Urine incontinence (Acute) Radiculitis of left cervical region (Acute) Polyarthralgia (Acute) Muscle cramps (Acute) Neck pain (Acute) Shoulder pain, right (Acute) Pneumonia (Acute) Cough (Acute) Renal cyst (Acute) Pleurisy (Acute) Vaginal itching (Acute) Blood in urine (Acute) Upper abdominal pain (Acute) Patellofemoral arthritis of right knee (Acute) Encounter for annual routine gynecological examination (Acute) Strain of cervical portion of both trapezius muscles (Acute) Myofascial pain (Acute) Spondylosis of cervical region without myelopathy or radiculopathy (Acute) Cervical radiculopathy (Acute) Osteoarthritis of right knee (Acute) Knee pain, right (Acute) Osteoarthritis of multiple joints (Acute) Encounter for annual routine gynecological examination (Acute) Routine gynecological examination (Acute) Encounter for general adult medical examination with abnormal findings (Acute) Swelling of toe of both feet (Acute) Arthrosis (Acute) Serous otitis media (Acute) Renal cyst, right (Acute) Mid back pain on right side (Acute) Obesity (BMI 30.0-34.9) (Acute) Peripheral vascular disease (Acute) Dyspepsia (Acute) Breast cancer (Acute) Asymptomatic gallstones (Acute) Chronic diarrhea (Acute) Abdominal pain (Acute) Osteopenia (Acute) Osteoarthritis (Acute) Hyperlipidemia (Acute) Pulmonary nodules (Acute) Breast cancer, left (Acute ~10/2016) Pneumonitis (Acute) Chest pain (Acute) Chronic cough (Acute) History of colon polyps (Acute) Back pain (Acute) Neuropathy (Acute) Past Medical History Medical History Pulmonary embolism Pulmonary nodules Pneumonitis Chest pain Chronic cough Vaginal yeast infection Breast lump on right side at 5 o'clock position History of colon polyps Breast cancer, left (~10/2016) Spondylosis Back pain Neuropathy Family History Family History Mother No problems noted. Father No problems noted. Other No family history of cancer Family history of problems with anesthesia: No Surgical History Surgical History Hx of cholecystectomy History of esophagogastroduodenoscopy (EGD) History of lumpectomy of right breast (06/26/22) Hx of vein stripping Hx of colonoscopy (~10/2018) S/P breast lumpectomy History of Problems with Anesthesia: No Social History Social History Household Members: Family and Children Housing: House Are you a primary patient care assistant to a significant other at home: No Do you presently have visiting nurse or other home services: No Alcohol intake: never Comment: med with oxycodone 5 mg po in PACU Patient Tobacco Use Status: Never used Tobacco e-Cigarette/Vaping Use: Never Used Use of substances other than those prescribed or required for medical reasons: No Advance Directives: No Advance Directives Information Provided: Yes Advance Directives on File: No Recently lost weight without trying: No Eating poorly because of decreased appetite: No Nutrition Risks: No Nutritional Risk Patient : No : No service: No Current occupational status: disabled Current occupation: rt handed Cognitive needs: No Hearing needs: No Vision needs: Yes Meds Allergies Allergy/AdvReac Type Severity Reaction Status Date / Time Penicillins [PENICILLINS] Allergy Severe ANAPHYLAXIS, Verified 04/14/24 13:37 swelling streptomycin [STREPTOMYCIN] Allergy Severe ANAPHYLAXIS Verified 04/14/24 13:37 Active Medications: Current Medications Povidone Iodine (Povidone Iodine 5 % Ophth Soln 30 Ml Bottle) 1 appl EYE-LEFT PREOP PRN PRN Reason: Pre-Op Surgical Implant Prophy Home Medications ?Medication ?Instructions ?Recorded ?Confirmed ?Last Taken ?Type cholecalciferol (vitamin D3) 25 25 mcg PO DAILY 02/11/24 04/22/24 Unknown History mcg (1,000 unit) tablet ondansetron 8 mg disintegrating 8 mg PO Q8H PRN Nausea 04/21/24 04/22/24 Unknown History tablet Exam Height,Weight and Vital Signs: Height 5 ft 4 in Weight 77.111 kg Last Vital Signs Temp 97.2 F 04/26/24 07:43 Pulse 78 04/26/24 07:43 Resp 16 04/26/24 07:43 BP 124/71 04/26/24 07:43 Pulse Ox 99 08/26/24 07:43 O2 Del Method Room Air 04/26/24 07:43 Airway Mallampati Class: II TM Dist: >3cm Neck ROM: Full Loose/Missing/Broken Teeth: No Heart: RRR Lungs: CTA Assessment and Plan Final Anesthetic Review Family History of Problems with Anesthesia: No History of Problems with Anesthesia: No NPO: Yes ASA Class: III Final Preanesthetic Review: Meds/Allgs Chart Reviewed, Consent Obtained/Reviewed and Anes Risks/Benef Reviewed Patient Risk: Intermediate Procedure Risk: Low Anesthetic Plan Anesthetic Plan: MAC: Disposition: Standard PACU
--- NOTE | 2024-04-26 09:28 | MHC.SHP ---
Pre-Procedural Eval Section A - 24 Hr Update-Section A only Date of Service: 04/26/24 The patient is an INPATIENT: No Changes since office visit: No Cold of Flu in the past 2 weeks, No New Medical Problems, No Changes in Medication and No Patient answered all questions The patient has been examined within 24 hours of the surgical procedure. The History & Physical has been completed within 30 days and I have reviewed it.: Yes Section B - Complete if H&P > 30 days Chief Complaint: Age-related nuclear cataract, left eye Allergies: Allergies Allergy/AdvReac Type Severity Reaction Status Date / Time Penicillins [PENICILLINS] Allergy Severe ANAPHYLAXIS, Verified 04/14/24 13:37 swelling streptomycin [STREPTOMYCIN] Allergy Severe ANAPHYLAXIS Verified 04/14/24 13:37 Plan Diagnosis/Plan: Unchanged I have reviewed the history and physical and performed a pertinent physical examination on my patient. No changes have occurred unless specified. Time Spent With Patient Time: Total time managing care of this patient today ____ minutes.
--- NOTE | 2024-04-26 09:28 | HO.PNOPHT ---
Ophthalmology Procedure Procedure Date of Service: 04/26/24 Ophthalmology Viscoelastic: Healon Duet Dual Pack Pro Ophthalmology Lenses: IOL Acrysof MP - MA60AC (21) Procedure Notes: PREOPERATIVE DIAGNOSIS: Decreased visual acuity left eye secondary to cataract POSTOPERATIVE DIAGNOSIS: Same PROCEDURE: Left cataract extraction with intraocular lens insertion SURGEON: Magdy Zuniga M.D. ANESTHESIA: Topical/MAC ESTIMATED BLOOD LOSS: None COMPLICATIONS: None After obtaining informed consent, the patient was brought to the operation room suite and placed in the supine position. After adequate sedation per anesthesia, topical drops of Tetracaine were given to the left eye. The eye was then prepped and draped in the usual sterile fashion. The operating room microscope was then positioned over the operative eye and a lid speculum placed. A paracentesis was created. Viscoelastic was then instilled into the anterior chamber. A three plane incision was then created temporally, utilizing a 2.85 mm keratome. Capsulotomy forceps were then utilized to create a circular tear capsulotomy. Hydrodissection and hydrodelineation were carried out until adequate mobilization of the nucleus occurred. Phacoemulsification was then utilized to remove the dense central nucleus followed by removal of the cortical material utilizing the automated aspiration irrigation unit. Viscoat elastic was instilled into the posterior capsular bag followed by placement of a posterior chamber intraocular lens without difficulty. The residual Viscoat elastic was then removed utilizing the automated IA machine. The wound was check and found to be watertight. The patient tolerated the procedure well and the lid speculum was removed. Intracameral injection of Vigamox 0.1 mL followed by a subtenon injection of Kenalog-40 0.2 mL were administered. The patient will be seen in the a.m.
[2024-04-26 09:58] VITALS: BP 140/91; PULSE 82; RESP 18; TEMP 36.4; O2SAT 100
== END 2024-04-26 10:13 | disposition home or self-care (01) ==
PROVIDERS: PCP Internal Medicine; Visit Provider Ophthalmology
PROC: (CPT 66985; principal; 2024-04-26 09:20)
DX: H25.12 Age-related nuclear cataract, left eye (principal); H52.4 Presbyopia; H04.123 Dry eye syndrome of bilateral lacrimal glands; H43.23 Crystalline deposits in vitreous body, bilateral; C50.911 Malignant neoplasm of unspecified site of right female breast; Z79.810 Long term (current) use of selective estrogen receptor modulators (SERMs); Z85.3 Personal history of malignant neoplasm of breast; I47.19 Other supraventricular tachycardia; Z79.01 Long term (current) use of anticoagulants; Z79.899 Other long term (current) drug therapy; Z88.0 Allergy status to penicillin; Z88.1 Allergy status to other antibiotic agents; Z98.890 Other specified postprocedural states
CPT/HCPCS: 66984; J2250; J3010; J3301; V2630

== ENCOUNTER 2024-05-10 08:12 | Day surgery (SDC) | payer OTHER, SELFPAY ==
[2024-04-22 07:25] VITALS: BMI 29.2
--- NOTE | 2024-05-06 14:25 | HO.ANESPROP2 ---
HPI - Anesthesia Eval Consult details Narrative: 63yo F for Right Cataract Extraction IOL Insertion Left eye 04/26/24: Midaz 2 Eliquis for PE PMFSH Active Problems Active Problems: All Active Problems Cardiac arrhythmia (Acute) Cataract (Acute) Pre-op evaluation (Acute) 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Acute) Generalized osteoarthritis (Acute) Generalized postprandial abdominal pain (Acute) 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Acute) Urine incontinence (Acute) Radiculitis of left cervical region (Acute) Polyarthralgia (Acute) Muscle cramps (Acute) Neck pain (Acute) Shoulder pain, right (Acute) Pneumonia (Acute) Cough (Acute) Renal cyst (Acute) Pleurisy (Acute) Vaginal itching (Acute) Blood in urine (Acute) Upper abdominal pain (Acute) Patellofemoral arthritis of right knee (Acute) Encounter for annual routine gynecological examination (Acute) Strain of cervical portion of both trapezius muscles (Acute) Myofascial pain (Acute) Spondylosis of cervical region without myelopathy or radiculopathy (Acute) Cervical radiculopathy (Acute) Osteoarthritis of right knee (Acute) Knee pain, right (Acute) Osteoarthritis of multiple joints (Acute) Encounter for annual routine gynecological examination (Acute) Routine gynecological examination (Acute) Encounter for general adult medical examination with abnormal findings (Acute) Swelling of toe of both feet (Acute) Arthrosis (Acute) Serous otitis media (Acute) Renal cyst, right (Acute) Mid back pain on right side (Acute) Obesity (BMI 30.0-34.9) (Acute) Peripheral vascular disease (Acute) Dyspepsia (Acute) Breast cancer (Acute) Asymptomatic gallstones (Acute) Chronic diarrhea (Acute) Abdominal pain (Acute) Osteopenia (Acute) Osteoarthritis (Acute) Hyperlipidemia (Acute) Pulmonary nodules (Acute) Breast cancer, left (Acute ~10/2016) Pneumonitis (Acute) Chest pain (Acute) Chronic cough (Acute) History of colon polyps (Acute) Back pain (Acute) Neuropathy (Acute) Past Medical History Medical History Pulmonary embolism Pulmonary nodules Pneumonitis Chest pain Chronic cough Vaginal yeast infection Breast lump on right side at 5 o'clock position History of colon polyps Breast cancer, left (~10/2016) Spondylosis Back pain Neuropathy Family History Family History Mother No problems noted. Father No problems noted. Other No family history of cancer Family history of problems with anesthesia: No Surgical History Surgical History Hx of cholecystectomy History of esophagogastroduodenoscopy (EGD) History of lumpectomy of right breast (06/26/22) Hx of vein stripping Hx of colonoscopy (~10/2018) S/P breast lumpectomy History of Problems with Anesthesia: No Social History Social History Household Members: Family and Children Housing: House Are you a primary healthcare market consultant to a significant other at home: No Do you presently have visiting nurse or other home services: No Alcohol intake: never Comment: med with oxycodone 5 mg po in PACU Patient Tobacco Use Status: Never used Tobacco e-Cigarette/Vaping Use: Never Used service: No Current occupational status: disabled Current occupation: rt handed Cognitive needs: No Hearing needs: No Vision needs: Yes Meds Allergies Allergy/AdvReac Type Severity Reaction Status Date / Time Penicillins [PENICILLINS] Allergy Severe ANAPHYLAXIS, Verified 04/14/24 13:37 swelling streptomycin [STREPTOMYCIN] Allergy Severe ANAPHYLAXIS Verified 04/14/24 13:37 Home Medications ?Medication ?Instructions ?Recorded ?Confirmed ?Last Taken ?Type cholecalciferol (vitamin D3) 25 25 mcg PO DAILY 02/11/24 04/22/24 Unknown History mcg (1,000 unit) tablet ondansetron 8 mg disintegrating 8 mg PO Q8H PRN Nausea 04/21/24 04/22/24 Unknown History tablet Exam Height,Weight and Vital Signs: Height 5 ft 4 in Weight 77.111 kg Assessment and Plan Assessment Anesthesia Assessment: Chart Reviewed Final Anesthetic Review Family History of Problems with Anesthesia: No History of Problems with Anesthesia: No
[2024-05-10 09:57] VITALS: BP 138/81; PULSE 95; RESP 18; TEMP 36.7; O2SAT 98
[2024-05-10] MEDS: Tetracaine HCl/PF 0.5% Oph Sol 4 ML DROPS 1 DROP EYE-RIGHT (09:59)
[2024-05-10] MEDS: Lactated Ringers 500 ML 50 ML IV (09:59)
[2024-05-10] MEDS: Phenylephrine HCL 2.5% Oph SoL 2 ML BOTTLE 1 DROP EYE-RIGHT ×3 (09:59→10:14)
[2024-05-10] MEDS: Cyclopentolate 1 % Ophth Sol 2 ML DRPBTL 1 DROP EYE-RIGHT ×3 (09:59→10:13)
[2024-05-10] MEDS: Ketorolac Tromethamine 0.5% Op 10 ML DROPS 1 DROP EYE-RIGHT ×3 (10:00→10:14)
[2024-05-10] MEDS: Tropicamide 1 % Ophth Sol 3 ML BTL 1 DROP EYE-RIGHT ×3 (10:00→10:14)
--- NOTE | 2024-05-10 10:21 | HO.ANESPROP2 ---
[facility] Active Problems Active Problems: All Active Problems Cardiac arrhythmia (Acute) Cataract (Acute) Pre-op evaluation (Acute) 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Acute) Generalized osteoarthritis (Acute) Generalized postprandial abdominal pain (Acute) 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Acute) Urine incontinence (Acute) Radiculitis of left cervical region (Acute) Polyarthralgia (Acute) Muscle cramps (Acute) Neck pain (Acute) Shoulder pain, right (Acute) Pneumonia (Acute) Cough (Acute) Renal cyst (Acute) Pleurisy (Acute) Vaginal itching (Acute) Blood in urine (Acute) Upper abdominal pain (Acute) Patellofemoral arthritis of right knee (Acute) Encounter for annual routine gynecological examination (Acute) Strain of cervical portion of both trapezius muscles (Acute) Myofascial pain (Acute) Spondylosis of cervical region without myelopathy or radiculopathy (Acute) Cervical radiculopathy (Acute) Osteoarthritis of right knee (Acute) Knee pain, right (Acute) Osteoarthritis of multiple joints (Acute) Encounter for annual routine gynecological examination (Acute) Routine gynecological examination (Acute) Encounter for general adult medical examination with abnormal findings (Acute) Swelling of toe of both feet (Acute) Arthrosis (Acute) Serous otitis media (Acute) Renal cyst, right (Acute) Mid back pain on right side (Acute) Obesity (BMI 30.0-34.9) (Acute) Peripheral vascular disease (Acute) Dyspepsia (Acute) Breast cancer (Acute) Asymptomatic gallstones (Acute) Chronic diarrhea (Acute) Abdominal pain (Acute) Osteopenia (Acute) Osteoarthritis (Acute) Hyperlipidemia (Acute) Pulmonary nodules (Acute) Breast cancer, left (Acute ~10/2016) Pneumonitis (Acute) Chest pain (Acute) Chronic cough (Acute) History of colon polyps (Acute) Back pain (Acute) Neuropathy (Acute) Past Medical History Medical History Pulmonary embolism Pulmonary nodules Pneumonitis Chest pain Chronic cough Vaginal yeast infection Breast lump on right side at 5 o'clock position History of colon polyps Breast cancer, left (~10/2016) Spondylosis Back pain Neuropathy Functional capacity: independent ambulation Patient : No Family History Family History Mother No problems noted. Father No problems noted. Other No family history of cancer Family history of problems with anesthesia: No Surgical History Surgical History Hx of cholecystectomy History of esophagogastroduodenoscopy (EGD) History of lumpectomy of right breast (06/26/22) Hx of vein stripping Hx of colonoscopy (~10/2018) S/P breast lumpectomy History of Problems with Anesthesia: No Social History Social History Household Members: Family and Children Housing: House Are you a primary childcare center administrator to a significant other at home: No Do you presently have visiting nurse or other home services: No Alcohol intake: never Comment: med with oxycodone 5 mg po in PACU Patient Tobacco Use Status: Never used Tobacco e-Cigarette/Vaping Use: Never Used Use of substances other than those prescribed or required for medical reasons: No Advance Directives: No Advance Directives Information Provided: Yes Advance Directives on File: No Recently lost weight without trying: No Nutrition Risks: No Nutritional Risk Patient : No : No service: No Current occupational status: disabled Current occupation: rt handed Cognitive needs: No Hearing needs: No Vision needs: Yes Meds Allergies Allergy/AdvReac Type Severity Reaction Status Date / Time Penicillins [PENICILLINS] Allergy Severe ANAPHYLAXIS, Verified 04/14/24 13:37 swelling streptomycin [STREPTOMYCIN] Allergy Severe ANAPHYLAXIS Verified 04/14/24 13:37 Active Medications: Current Medications Lactated Ringer's (Lr) 500 mls @ 50 mls/hr IV .Q10H VICKY Stop: 05/10/24 19:44 Last Admin: 05/10/24 09:59 Dose: 50 mls/hr Povidone Iodine (Povidone Iodine 5 % Ophth Soln 30 Ml Bottle) 1 appl EYE-RIGHT PREOP PRN PRN Reason: Pre-Op Surgical Implant Prophy Home Medications ?Medication ?Instructions ?Recorded ?Confirmed ?Last Taken ?Type cholecalciferol (vitamin D3) 25 25 mcg PO DAILY 02/11/24 04/22/24 Unknown History mcg (1,000 unit) tablet ondansetron 8 mg disintegrating 8 mg PO Q8H PRN Nausea 04/21/24 04/22/24 Unknown History tablet Exam Height,Weight and Vital Signs: Height 5 ft 4 in Weight 77.111 kg Last Vital Signs Temp 98.0 F 05/10/24 09:57 Pulse 95 05/10/24 09:57 Resp 18 05/10/24 09:57 BP 138/81 05/10/24 09:57 Pulse Ox 98 05/10/24 09:57 O2 Del Method Room Air 05/10/24 09:57 Airway Mallampati Class: III TM Dist: >3cm Neck ROM: Full Heart: RRR Lungs: CTA Assessment and Plan Assessment Anesthesia Assessment: Anesthesia Plan Discussed and Chart Reviewed Final Anesthetic Review Family History of Problems with Anesthesia: No History of Problems with Anesthesia: No NPO: Yes ASA Class: III Final Preanesthetic Review: Meds/Allgs Chart Reviewed, Consent Obtained/Reviewed and Anes Risks/Benef Reviewed Patient Risk: Intermediate Procedure Risk: Low Anesthetic Plan Anesthetic Plan: MAC: Disposition: Standard PACU
[2024-05-10 10:40] VITALS: BMI 29.2
--- NOTE | 2024-05-10 11:08 | P.PCNO_ITS ---
Ophthalmology Procedure Procedure Date of Service: 05/10/24 Ophthalmology Viscoelastic: Healon Duet Dual Pack Pro Ophthalmology Lenses: IOL Acrysof MP - MA60AC (20.5) Procedure Notes: PREOPERATIVE DIAGNOSIS: Decreased visual acuity right eye secondary to cataract POSTOPERATIVE DIAGNOSIS: Same PROCEDURE: Right cataract extraction with intraocular lens insertion SURGEON: Magdy Zuniga M.D. ANESTHESIA: Topical/MAC ESTIMATED BLOOD LOSS: None COMPLICATIONS: None After obtaining informed consent, the patient was brought to the operating room suite and placed in the supine position. After adequate sedation per anesthesia, topical drops of Tetracaine were given to the right eye. The eye was then prepped and draped in the usual sterile fashion. The operating room microscope was then positioned over the operative eye and a lid speculum placed. A paracentesis was created. Viscoelastic was then instilled into the anterior chamber. A three plane incision was then created temporally, utilizing a 2.85 mm keratome. Capsulotomy forceps were then utilized to create a circular tear capsulotomy. Hydrodissection and hydrodelineation were carried out until adequate mobilization of the nucleus occurred. Phacoemulsification was then utilized to remove the dense central nu cleus followed by removal of the cortical material utilizing the automated aspiration irrigation unit. Viscoelastic was instilled into the posterior capsular bag followed by placement of a posterior chamber intraocular lens without difficulty. The residual Viscoelastic was then removed utilizing the automated IA machine. The wound was checked and found to be watertight. The patient tolerated the procedure well and the lid speculum was removed. Intracameral injection of Vigamox 0.1 mL followed by a subtenon injection of Kenalog-40 0.2 mL were administered. The patient will be seen in the a.m.
--- NOTE | 2024-05-10 11:08 | MHC.SHP ---
Pre-Procedural Eval Section A - 24 Hr Update-Section A only Date of Service: 05/10/24 The patient is an INPATIENT: No Changes since office visit: No Cold of Flu in the past 2 weeks, No New Medical Problems, No Changes in Medication and No Patient answered all questions The patient has been examined within 24 hours of the surgical procedure. The History & Physical has been completed within 30 days and I have reviewed it.: Yes Section B - Complete if H&P > 30 days Chief Complaint: Age-related nuclear cataract, right eye Allergies: Allergies Allergy/AdvReac Type Severity Reaction Status Date / Time Penicillins [PENICILLINS] Allergy Severe ANAPHYLAXIS, Verified 04/14/24 13:37 swelling streptomycin [STREPTOMYCIN] Allergy Severe ANAPHYLAXIS Verified 04/14/24 13:37 Plan Diagnosis/Plan: Unchanged I have reviewed the history and physical and performed a pertinent physical examination on my patient. No changes have occurred unless specified. Time Spent With Patient Time: Total time managing care of this patient today ____ minutes.
[2024-05-10 12:16] VITALS: BP 122/70; PULSE 92; RESP 15; RESP 16; TEMP 36.6; O2SAT 100
[2024-05-10 12:31] VITALS: BP 144/84; PULSE 94; RESP 16; TEMP 36.2; O2SAT 100
== END 2024-05-10 13:10 | disposition home or self-care (01) ==
PROVIDERS: PCP Internal Medicine; Visit Provider Ophthalmology
PROC: (CPT 66985; principal; 2024-05-10 10:30)
DX: H25.11 Age-related nuclear cataract, right eye (principal); H52.4 Presbyopia; H04.123 Dry eye syndrome of bilateral lacrimal glands; H43.23 Crystalline deposits in vitreous body, bilateral; C50.311 Malignant neoplasm of lower-inner quadrant of right female breast; Z79.810 Long term (current) use of selective estrogen receptor modulators (SERMs); R91.8 Other nonspecific abnormal finding of lung field; I47.19 Other supraventricular tachycardia; Z79.01 Long term (current) use of anticoagulants; Z79.899 Other long term (current) drug therapy; Z88.0 Allergy status to penicillin; Z88.1 Allergy status to other antibiotic agents; Z90.49 Acquired absence of other specified parts of digestive tract
CPT/HCPCS: 66984; J2250; J3301; V2630

== ENCOUNTER 2024-05-26 14:30 | Outpatient (AMB) | payer OTHER, SELFPAY ==
[2024-05-26 14:33] VITALS: BP 132/74; PULSE 90; O2SAT 97; BMI 29.3
--- NOTE | 2024-05-26 14:33 | MHC.PC.OV ---
Vital Signs 05/26/24 14:33 Height 5 ft 4 in Weight 171 lb BMI 29.3 BP 132/74 Blood Pressure Location Rt brachial Position Sitting Pulse 90 Pulse Source Pulse Oximeter Pulse Oximetry (%) 97 Oxygen Delivery Method Room Air Intake Visit Reasons: follow up Allergies Penicillins [PENICILLINS] Allergy (Severe, Verified 05/26/24 14:34) ANAPHYLAXIS, swelling streptomycin [STREPTOMYCIN] Allergy (Severe, Verified 05/26/24 14:34) ANAPHYLAXIS Medication List - Last Reconciled 05/26/24 by Adria Rubio MD apixaban (Eliquis) 5 mg PO BID [bath stole As directed] capecitabine 1,000 mg (2 x 500 mg) PO BID cholecalciferol (vitamin D3) 25 mcg PO DAILY clotrimazole-betamethasone 1-0.05 % 1 appl topical ONCE 30 days [compression stockings As directed] gabapentin 300 mg PO BEDTIME omeprazole 20 mg PO BID 90 days ondansetron 8 mg PO Q8H PRN psyllium husk (Fiber (psyllium husk)) 0.52 grams PO BID 90 days raloxifene 60 mg PO DAILY sucralfate (Carafate) 1 g PO BID Tobacco use date assessed: 05/26/24 Dental Screening Dental Screen Date: 05/26/24 Did you have a dental visit in the last 12 months?: Yes Did you have a dental problem in the last 6 months where you did not have access to dental care?: No Was dental information given to patient?: Patient has dentist HPI follow up HPI Details Patient is 63-year-old female came in today to have a repeat EKG done Last time seen for clearance for cataract surgery she had EKG which showed PACs She does not have any nausea vomiting fever However patient is going through chemotherapy for the treatment of breast cancer EKG done today shows PACs as well, 86 beats per minute no acute ST findings I am ordering Holter monitor for 3 days Patient will see Dr. Box cardiology for further evaluation [facility] Medical History Pulmonary embolism Pulmonary nodules Pneumonitis Chest pain Chronic cough Vaginal yeast infection Breast lump on right side at 5 o'clock position History of colon polyps Breast cancer, left (~10/2016) Spondylosis Back pain Neuropathy Surgical History Hx of cholecystectomy History of esophagogastroduodenoscopy (EGD) History of lumpectomy of right breast (06/26/22) Hx of vein stripping Hx of colonoscopy (~10/2018) S/P breast lumpectomy Family History Mother No problems noted. Father No problems noted. Other No family history of cancer Social History Household Members: Family and Children Housing: House Are you a primary insurance healthcare consultant to a significant other at home: No Do you presently have visiting nurse or other home services: No Alcohol intake: never Comment: med with oxycodone 5 mg po in PACU Patient Tobacco Use Status: Never used Tobacco e-Cigarette/Vaping Use: Never Used service: No Current occupational status: disabled Current occupation: rt handed Cognitive needs: No Hearing needs: No Vision needs: Yes Female Reproductive History Menstrual Age of Menarche: 15 Questionnaire PHQ-9 Over the last 2 weeks, how often have you been bothered by any of the following problems? 1. Little interest or pleasure in doing things: not at all 2. Feeling down, depressed, or hopeless: not at all 3. Trouble falling or staying asleep, or sleeping too much: not at all 4. Feeling tired or having little energy: not at all 5. Poor appetite or overeating: not at all 6. Feeling bad about yourself - or that you are a failure or have let yourself or your family down: not at all 7. Trouble concentrating on things, such as reading the newspaper or watching television: not at all 8. Moving or speaking so slowly that other people could have noticed. Or the opposite - being so fidgety or restless that you have been moving around a lot more than usual: not at all 9. Thoughts that you would be better off or of hurting yourself in some way: not at all Total score: 0 Depression Screening Interpretation: Negative Depression Screening Done: Yes 83109 - PHQ-9 Billing: Yes Source: Developed by Drs. Andi Kim, Ashley Watson, Donovan Jones and colleagues, with an educational reji from [employer]. Thrive Questionnaire Date Thrive assessed: 05/26/24 I am a: Patient What is your living situation today?: I choose not to answer this question Within the past 12 months, did the food you bought not last and you didn't have the money to get more?: I choose not to answer this question Within the past 12 months, did you worry whether your food would run out before you got money to buy more?: I choose not to answer this question Do you have trouble paying for medicines?: No Do you have trouble getting transportation to medical appointments?: No Do you have trouble paying your heating and electricity bill?: I choose not to answer this question Do you have trouble taking care of your child, family member or friend?: I choose not to answer this question Do you have trouble with day-to-day activities such as bathing, preparing meals, shopping, managing finances, etc.?: I choose not to answer this question Are you currently unemployed and looking for a job?: I choose not to answer this question Are you interested in more education?: I choose not to answer this question Please select the resources that you would like help with: None Currently or been in a relationship where the following occur: I choose not to answer THRIVE Score: 0 AUDIT C Alcohol Use Questionnaire (AUDIT-C) 1. How often do you have a drink containing alcohol?: Never 3. How often do you have six or more drinks on one occasion?: Never Total Score: 0 Score Reviewed/Action Taken: Yes INOCENCIO-7 AMB Questionnaire INOCENCIO-7 Date INOCENCIO - 7 assessed: 04/14/24 Source: Developed by Drs. Anid Kim, Ashley Watson, Donovan Jones and colleagues, with an educational reji from [employer]. Review of Systems Const Denies chills and Denies fever(s) ENT Denies epistaxis and Denies nasal discharge Card Denies chest pain Resp Denies chest congestion, Denies cough and Denies hemoptysis GI Denies diarrhea and Denies nausea Skin/Breast Denies rash Neuro Reports no additional complaints Psych Reports no additional complaints Endo Reports no additional complaints Physical exam (Primary Care) Vital Signs: Last Vital Signs Pulse 90 05/26/24 14:33 BP 132/74 09/25/24 14:33 Pulse Ox 97 05/26/24 14:33 Oxygen Delivery Method Room Air 05/26/24 14:33 BMI result Body Mass Index 29.3 Tobacco/Smoking Status: Tobacco use Status Tobacco use date assessed 05/26/24 05/26/24 14:35 Patient Tobacco Use Status Never used Tobacco 05/26/24 14:35 e-Cigarette/Vaping Use Never Used 05/26/24 14:35 PHQ-9: PHQ-9 Score PHQ-9: Total score 0 05/26/24 14:35 Depression Screening Interpretation: Negative Thrive Assessment: Date of Thrive Assessment Date Thrive assessed 05/26/24 05/26/24 14:35 Currently or been in a relationship where the following occur: I choose not to answer Const General: cooperative, comfortable and no acute distress Orientation/consciousness: patient oriented x3 HENMT Head: Yes normocephalic Eyes General: appearance normal, both eyes and all related structures Neck Neck: Yes supple Resp Effort & Inspection: normal respiratory effort, no cough and no stridor Cardio Heart sounds: S1 normal heart sound present and S2 normal heart sound present Skin General skin exam: turgor normal Neuro General: patient oriented x3, tone normal and moves all extremities Extrem Right lower extremity: no edema Left lower extremity: no edema Office Procedures EKG 61722-[id number], Complete Assessment and Plan Assessment & Plan (1) Cardiac arrhythmia: Code(s): I49.9 - Cardiac arrhythmia, unspecified Qualifiers: Arrhythmia type: other supraventricular tachycardia Qualified Code(s): I47.19 - Other supraventricular tachycardia Plan Patient is 63-year-old female came in today to have a repeat EKG done Last time seen for clearance for cataract surgery she had EKG which showed PACs She does not have any nausea vomiting fever However patient is going through chemotherapy for the treatment of breast cancer EKG done today shows PACs as well, 86 beats per minute no acute ST findings I am ordering Holter monitor for 3 days Patient will see Dr. Box cardiology for further evaluation Orders: Orders ECG 3 day holter monitor Today I47.19 - Other supraventricular tachycardia Referrals Cardiology Referral I47.19 - Other supraventricular tachycardia Coding Level of Care Code Est Pt Level 4 (82434) Diagnoses Other supraventricular tachycardia I47.19 Arrhythmia type: other supraventricular tachycardia CPT Codes EKG - CPT: 19443-[id number], Complete ([id number])
== END 2024-05-26 16:26 | disposition home or self-care (01) ==
PROVIDERS: PCP Internal Medicine; Visit Provider Internal Medicine
DX: I47.19 Other supraventricular tachycardia (principal)

== ENCOUNTER → 2024-05-26 14:30 | Outpatient (BNVA) | payer OTHER, SELFPAY | PROVIDERS: PCP Internal Medicine; Visit Provider Internal Medicine | DX: I47.19 Other supraventricular tachycardia (principal) | CPT/HCPCS: 93005; 96127; 99212 ==

== ENCOUNTER 2024-06-02 13:39 | Outpatient (AMB) | payer OTHER, SELFPAY ==
--- NOTE | 2024-06-02 13:44 | MHC.OFFVIS ---
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: No Accompanied by: Self / Same As Patient Allergies Penicillins [PENICILLINS] Allergy (Severe, Verified 05/26/24 14:34) ANAPHYLAXIS, swelling streptomycin [STREPTOMYCIN] Allergy (Severe, Verified 05/26/24 14:34) ANAPHYLAXIS Medication List - Last Reconciled 06/02/24 by Molina Box MD apixaban (Eliquis) 5 mg PO BID [bath stole As directed] capecitabine 1,000 mg (2 x 500 mg) PO BID cholecalciferol (vitamin D3) 25 mcg PO DAILY clotrimazole-betamethasone 1-0.05 % 1 appl topical ONCE 30 days [compression stockings As directed] gabapentin 300 mg PO BEDTIME omeprazole 20 mg PO BID 90 days ondansetron 8 mg PO Q8H PRN sucralfate (Carafate) 1 g PO BID HPI Comments Details: Pleasant 63-year-old lady from [place] who has background history of left breast cancer status post surgery and chemotherapy. No reported radiation therapy. 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 This was pretty extensive surgery and she had a tough postop course and also had a DVT and was on Lovenox until recently when she was changed to Eliquis. She has seen her primary care physician and EKGs showed premature atrial complexes. She is saying that she feels tired and gets palpitations. She also is short of breath. She is taking capecitabine currently and will be completing an 8 week course of this. She is currently in the 6th week. She is saying since she started taking the chemotherapy for gallbladder cancer she has been experiencing these symptoms. She is denying any chest discomfort. She has no history of lung disease in the past. [facility] Medical History Pulmonary embolism Pulmonary nodules Pneumonitis Chest pain Chronic cough Vaginal yeast infection Breast lump on right side at 5 o'clock position History of colon polyps Breast cancer, left (~10/2016) Spondylosis Back pain Neuropathy Surgical History Hx of cholecystectomy History of esophagogastroduodenoscopy (EGD) History of lumpectomy of right breast (06/26/22) Hx of vein stripping Hx of colonoscopy (~10/2018) S/P breast lumpectomy Family History Mother No problems noted. Father No problems noted. Other No family history of cancer Social History Household Members: Family and Children Housing: House Are you a primary child care director to a significant other at home: No Do you presently have visiting nurse or other home services: No Alcohol intake: never Comment: med with oxycodone 5 mg po in PACU Patient Tobacco Use Status: Never used Tobacco e-Cigarette/Vaping Use: Never Used service: No Current occupational status: disabled Current occupation: rt handed Cognitive needs: No Hearing needs: No Vision needs: Yes Female Reproductive History Menstrual Age of Menarche: 15 Review of Systems Const Denies chills, Denies daytime sleepiness, Denies fatigue, Denies fever(s), Denies poor appetite, Denies snoring, Denies stops breathing during sleep, Denies weakness, Denies weight gain and Denies weight loss Eyes Denies loss of vision ENT Denies dizziness and Denies hearing loss Card Denies chest pain, Denies irregular heart rhythm, Denies claudication, Denies leg edema, Denies lightheadedness, Denies palpitations, Reports dyspnea on exertion and Denies orthopnea Resp Denies cough, Denies excessive phlegm production, Reports dyspnea on exertion, Denies snoring and Denies wheezing GI Denies abdominal pain, Denies hematochezia, Denies change in bowel habits, Denies nausea and Denies vomiting Denies urinary frequency and Denies dysuria Musc Denies arthralgias, Denies muscle weakness, Denies numbness and Denies other Skin/Breast Denies nail changes and Denies rash Neuro Denies Abnormal speech present, Denies dizziness, Denies loss of vision, Denies memory loss, Denies numbness and Denies weakness Psych Denies depression and Denies memory loss Endo Denies fatigue and Denies palpitations Almas/Lymph Denies easy bruising Aller/Immun Denies wheezing Physical Exam Vital Signs: Last Vital Signs Pulse 112 H 06/02/24 13:45 BP 110/60 06/02/24 13:45 BMI result Body Mass Index 28.4 GENERAL APPEARANCE: in no acute distress, pleasant. NECK: no carotid bruit, no jugular venous distention. SKIN: no suspicious lesions, warm and dry. HEART: no murmurs, regular rate and rhythm. LUNGS: clear to auscultation bilaterally. ABDOMEN: soft, nontender. EXTREMITIES: no edema. PERIPHERAL PULSES: equal. NEUROLOGIC: No gross deficits, AAO X 3 Neuro Speech: No Abnormal speech present Assessment & Plan Assessment & Plan (1) Cardiac arrhythmia: Code(s): I49.9 - Cardiac arrhythmia, unspecified Category: Medical Qualifiers: Arrhythmia type: other supraventricular tachycardia Qualified Code(s): I47.19 - Other supraventricular tachycardia Plan Pleasant 63 year female who is here for palpitations and premature atrial complexes. She is on active chemotherapy currently and it is the likely cause for the premature atrial complexes. No AFib documented. She is on anticoagulation for DVT currently. She is going to complete a Holter monitor. I have advised her to do an echocardiogram as she has received chemotherapy and is receiving chemotherapy currently. Starting her on low-dose metoprolol 25 mg daily. I have advised her to use multivitamins and vitamin B12. She has chronic neuropathy after her 1st chemotherapy given to her in 2017. She will do Holter and echo and we will see us back in 3 months. Thank you for allowing me to participate in the care of your patient. Please feel free to contact me if you have any questions. Orders: Orders CA echo transthoracic complete Today I47.19 - Other supraventricular tachycardia Coding Level of Care Code New Pt Level 3 (95401) Diagnoses Other supraventricular tachycardia I47.19 Arrhythmia type: other supraventricular tachycardia
[2024-06-02 13:45] VITALS: BP 110/60; PULSE 112; BMI 28.4
== END 2024-06-02 14:12 | disposition home or self-care (01) ==
PROVIDERS: PCP Internal Medicine; Visit Provider Internal Medicine Cardiovascular Disease
DX: I47.19 Other supraventricular tachycardia (principal)
CPT/HCPCS: 99203

== ENCOUNTER → 2024-06-02 13:39 | Outpatient (BNVA) | payer OTHER, SELFPAY | PROVIDERS: PCP Internal Medicine; Visit Provider Internal Medicine Cardiovascular Disease | DX: I47.19 Other supraventricular tachycardia (principal) | CPT/HCPCS: 99202 ==

== ENCOUNTER 2024-06-23 08:56 | Outpatient (REF) | payer OTHER, SELFPAY ==
[2024-06-23 09:40] LABS: Alanine Aminotransferase 32 U/L (0-31); Albumin Level 3.6 g/dL (3.5-5.0); Alkaline Phosphatase 84 U/L (39-117); Anion Gap 14 (12-20); Aspartate Amino Transferase 28 U/L (5-31); Bilirubin Total 0.6 mg/dL (0.0-1.0); Blood Urea Nitrogen 15 mg/dL (9-16); Calcium 9.1 mg/dL (8.4-10.2); Carbon Dioxide 21 mmol/L (22-29); Chloride 109 mmol/L (96-108); Cholesterol 177 mg/dL (<200); Estimated Glomerular Filt Rate > 60; Glucose Random 109 mg/dL (60-115); HDL Cholesterol 50 mg/dL (>40); LDL Cholesterol Calculated 94 mg/dL (<100); Potassium 4.2 mmol/L (3.3-5.1); Sodium 140 mmol/L (135-145); Total Protein 6.7 g/dL (6.5-8.0); Triglycerides 168 mg/dL (<150)
[2024-06-23 09:44] LABS: Basophils Percent Auto 0.4 % (0-2); Eosinophils Absolute Auto 0.1 X10*3/uL (0.0-0.4); Eosinophils Percent Auto 1.9 % (0-4); Hematocrit 30.4 % (37.0-47.0); Hemoglobin 10.2 g/dl (12.0-16.0); Imm Gran Abs Auto 0.04 X10*3/uL (0.00-0.03); Imm Gran Pct Auto 0.6 % (0.0-0.4); Lymphocytes Absolute Auto 3.1 X10*3/uL (1.2-4.9); Lymphocytes Percent Auto 46.3 % (20-40); MANUAL DIFF FLAG SCAN; Mean Corpuscular HGB Conc 33.6 g/dl (31.0-35.0); Mean Corpuscular Hemoglobin 31.6 pg (27.0-33.0); Mean Corpuscular Volume 94.1 fL (80.0-98.0); Monocytes Absolute Auto 0.8 X10*3/uL (0.1-1.2); Monocytes Percent Auto 11.5 % (2-11); Neutrophils Absolute Auto 2.7 x10*3/uL (2.0-8.3); Neutrophils Percent Auto 39.3 % (45-73); PLT CLUMP 1; Red Blood Count 3.23 X10*6/uL (4.20-5.50); Red Cell Distribution Width 18.8 % (11.0-16.0); SCAN SMEAR FLAG 1
[2024-06-23 09:55] LABS: Reflex LDLD? No
[2024-06-23 10:10] LABS: White Blood Count 6.8 X10*3/uL (4.8-10.8)
[2024-06-23 10:30] LABS: SLIDE REVIEW VERIFIED
== END 2024-06-23 08:57 | disposition home or self-care (01) ==
LOC: HO.LAB 08:56
PROVIDERS: Visit Provider Internal Medicine Medical Oncology
DX: C50.919 Malignant neoplasm of unspecified site of unspecified female breast (principal); C23 Malignant neoplasm of gallbladder
CPT/HCPCS: 36415; 80053; 80061; 85025

== ENCOUNTER → 2024-06-28 10:19 | Outpatient (REF) | payer OTHER, SELFPAY ==
--- NOTE | 2024-06-28 10:21 | HM_ITS ---
Conclusion: 1. Patient was monitored for total period of 3 days 2. Baseline was normal sinus rhythm with average heart rate of 98 beats per minute 3. Frequent PACs noted with total burden of 6.1% with 10 episodes of SVT, longest lasting 22 beats and fastest at 151 beats per minute 4. Frequent sinus tachycardia noted with 36.7% of the time heart rate about 100 beats per minute 5. No patient reported events MTDD
--- NOTE | 2024-06-28 10:21 | CA_ITS ---
Transthoracic Echocardiogram Patient (Last, First, Middle): Susana Sanchez, Gender: Female Date of : 1960 Age: 63 Procedure Date: 06/28/2024 Procedure Type: Transthoracic Echocardiogram Location: OP Height: 157.48 cm Weight: 74.84 kg BSA: 1.76 m2 Heart Rate: 99 bpm BP: 110 / 60 mmHg Tugger Operator: DORIS Referring MD: Molina Box MD Car Hostler: Molina Box MD Symptoms: I47.19 - Other supraventricular tachycardia Study Quality: Adequate w contrast ECG Rhythm: Sinus Conclusions: - Normal left ventricular size, thickness, systolic function, and wall motion. The visually estimated ejection fraction is between 55-60%. Diastolic function is indeterminate on the basis of available data. - Normal right ventricular cavity size and systolic function. - There is mild calcification of the aortic valve. - There is mild mitral annular calcification. - There is mild aortic valve regurgitation. Findings Procedure Information Contrast agent, definity, is being given per protocol without apparent complications. Left Ventricle Normal left ventricular size, thickness, systolic function, and wall motion. The visually estimated ejection fraction is between 55-60%. Diastolic function is indeterminate on the basis of available data. Right Ventricle Normal right ventricular cavity size and systolic function. Atria The left atrium is normal in size. Aortic Valve There is a normal trileaflet aortic valve. There is mild calcification of the aortic valve. There is no aortic valve stenosis. There is mild aortic valve regurgitation. Mitral Valve There is mild mitral annular calcification. There is no mitral valve regurgitation. There is no mitral valve stenosis. Pulmonic Valve The pulmonic valve is normal. There is trace pulmonic valve regurgitation. Tricuspid Valve Normal tricuspid valve structure. There is mild tricuspid valve regurgitation. Normal right atrial pressure. There is no evidence of pulmonary hypertension. Great Vessels All visible segments of the aorta are normal in size. The visualized portions of the pulmonary artery and branches are normal. Venous The inferior vena cava is normal in size and collapses greater than 50% with inspiration. Pericardium/Pleural There is no evidence of pericardial effusion. Prior Study Comparison No significant change compared to prior study dated: 08/01/2018. Measurements 2D Linear Measurements IVSd: 0.97 0.6-0.9/0.6-1.0 cm LVIDd: 4.07 3.9-5.3/4.2-5.9 cm LVIDd Index: 2.31 2.4-3.2/2.2-3.1 cm/m2 LVIDs: 3.10 2.0-3.6 cm LVPWd: 0.73 0.7-1.1 cm LA Diam: 3.20 2.7-3.8/3.0-4.0 cm LAIDs Index: 1.82 1.5-2.3 cm/m2 LV Mass: 129.05 67-162/88-224 g LV Mass Index: 73.32 43-95/49-115 g/m2 LVOT Diam: 2.20 3.0+(-)1.3 cm 2D Systolic Function EF 4C: 59.00 >55% EF 2C: 66.10 >55% EF BiP: 63.20 >55% Mitral Valve MV Pk E: 0.50 MV PK A: 0.94 MV Decel Time: 192.00 E/A: 0.50 E'Lateral: 4.03 E/E' Lat: 12.30 PHT: 56.00 MVA PHT: 3.93 Decel [place]: 2.59 Aortic Valve AoV Pk Mirza: 1.28 AoV Mn Mirza: 0.92 AoV VTI: 0.23 AoV Pk Grad: 7.00 Aov Mn Grad: 4.00 ALIS Cont.VTI: 2.40 LVOT LVOT Pk Mirza: 0.68 LVOT Mn Mirza: 0.48 LVOT VTI: 0.15 LVOT Pk Grad: 2.00 LVOT Mn Grad: 1.00 LVOT Diam: 2.20 LVOT Area: 3.80 Diastolic Function MV Pk E: 0.50 MV Pk A: 0.94 E/A: 0.50 E' Laterial: 4.03 E/E' Lat: 12.30 Right Ventricle TAPSE (mm): 17.40 TVS' Mirza: 11.00 Tricuspid Valve TR Pk Mirza: 2.06 TR Pk Grad: 17.00 RA Press: 3.00 RVSP: 20.00 Great Vessels Aorta Sinus of Valsalva: 3.10 2.0-3.5 cm Ao Asc: 3.20 2.1-3.4 cm Pulmonary Valve PV Pk Mirza: 0.71 Peak PV Grad: 2.00 Updated in Other Vendor System with Status of Final Molina Box MD electronically signed on 06/30/2024 9:02:31 AM with status of Final
== END ==
LOC: HO.CARD 10:19
PROVIDERS: Absent Provider Internal Medicine Cardiovascular Disease; PCP Internal Medicine; Visit Provider Internal Medicine
DX: I47.19 Other supraventricular tachycardia (principal)
CPT/HCPCS: 93242; 93306; Q9957

== ENCOUNTER → 2024-06-28 10:21 | Outpatient (BNV) | payer OTHER, SELFPAY | PROVIDERS: Absent Provider Internal Medicine Cardiovascular Disease; PCP Internal Medicine; Visit Provider Internal Medicine Cardiovascular Disease | DX: I49.1 Atrial premature depolarization (principal); I47.10 Supraventricular tachycardia, unspecified | CPT/HCPCS: 93244; 93306 ==

== ENCOUNTER 2024-06-30 09:07 | Outpatient (REF) | payer OTHER, SELFPAY ==
--- NOTE | ~2024-06-30 | CT_ITS ---
EXAMINATION: CT ABDOMEN AND PELVIS WITHOUT INTRAVENOUS CONTRAST CLINICAL INFORMATION: Gallbladder carcinoma, chemotherapy follow-up COMPARISON: October 28, 2023 TECHNIQUE: Multidetector volumetric imaging was performed from the superior aspect of the liver through the pubic symphysis. Sagittal and coronal reformatted images were obtained on the technologist's workstation. 900 cc of oral contrast used This CT examination was performed 800 using dose optimization techniques as appropriate, variously including the following: *Automated exposure control *Adjustment of mA and/or kV according to patient size (this includes techniques or standardized protocols for targeted exams where dose is matched to indication/reason for exam; i.e. extremities or head) *Use of iterative reconstruction technique DLP: 837 mGy-cm FINDINGS: LUNG BASES: There is stable since previous examination subpleural right lower lobe nodule seen on image 1 series 2, measured 0.4 cm. Atelectasis seen in the right lung base. LIVER, GALLBLADDER, AND BILIARY TREE: Liver is of very low attenuation due to hepatic steatosis and heterogeneous gallbladder is surgically absent. PANCREAS: Unremarkable. SPLEEN: Unremarkable. ADRENAL GLANDS: Unremarkable. KIDNEYS AND URETERS: There is simple cyst in the right kidney, measured 2.6 cm No evidence of hydronephrosis or nephrolithiasis. BLADDER: Unremarkable. GASTROINTESTINAL TRACT: The small and large bowel are unremarkable. The appendix is unremarkable. ABDOMINAL WALL: No significant hernia is appreciated. LYMPH NODES: Normal. VASCULAR: Unremarkable. PELVIC VISCERA: Unremarkable. OSSEOUS STRUCTURES: There are degenerative changes in facet joints of lumbar spine CT/CT abdomen pelvis wo IV con IMPRESSION: Hepatic steatosis Simple cyst right kidney Status post cholecystectomy Single stable subpleural lung nodule in the right lower lobe Fleischner guidelines were followed. Electronically signed by: Oscar Bautista MD 07/01/2024 09:35 AM EDT
--- NOTE | ~2024-06-30 | CT_ITS ---
EXAMINATION: CT CHEST WITHOUT CONTRAST CLINICAL INFORMATION: -History of pulmonary embolism. History of gallbladder cancer, and breast cancer. -Follow-up malignant neoplasm of the gallbladder (ordered with contrast although unable to gain IV access, and CT examination was performed without contrast). COMPARISON: [facility] 03/09/2024. CT chest 10/28/2023, 02/05/2023. TECHNIQUE: Multidetector volumetric CT imaging of the chest was done. Axial MIP volume rendering provided. Sagittal and coronal reformatted images were obtained. This CT examination was performed using dose optimization techniques as appropriate, variously including the following: *Automated exposure control *Adjustment of mA and/or kV according to patient size (this includes techniques or standardized protocols for targeted exams where dose is matched to indication/reason for exam; i.e. extremities or head) *Use of iterative reconstruction technique DLP: 274 mGy-cm FINDINGS: PULMONARY NODULES: -Pleural-based 5 mm nodule lateral right middle lobe, stable (4:248). -3 mm fissural nodule inferolateral right major fissure, consistent with intrapulmonary lymph node (4: 288), stable. -A few scattered calcified granulomata are again noted. These are benign. -No new or enlarging pulmonary nodule. No suspicious finding. LUNGS: -Stable scarring in the anterior left apex, and throughout the left upper lobe and lingula, consistent with prior radiation therapy to the left breast. -Mild subpleural scarring present in the medial right lower lobe, inferior right middle lobe, and medial anterior left lower lobe. These findings appear stable. -Mild lower lobe bronchiectasis medial right lower lobe without wall thickening, stable. Small airways otherwise normal. -Central airways normal. -There is no pleural effusion or mass. No pneumothorax. MEDIASTINUM: -The thyroid gland is slightly small in appearance without definite nodule. -No abnormal lymphadenopathy is present in the mediastinum, or hilum. A 9 mm short axis precarinal lymph node is unchanged. -Esophagus appears normal. -Aorta demonstrates a 2 vessel branching pattern. It is normal in caliber and course with mild to moderate atheromatous calcification. Main pulmonary artery is normal in size. -Heart size is top normal. There is calcification of the aortic annulus and mitral annulus to a mild degree. -No pericardial effusion. CORONARY ARTERY CALCIFICATION: Moderate to heavy three-vessel calcification of the RCA, LAD, and circumflex present. There is also left main involvement. AXILLA/CHEST WALL: No masses or lymphadenopathy. Breast postsurgical changes are present.. UPPER ABDOMEN: -Geographic fatty attenuation of the liver is present. There is no focal suspicious liver mass on this noncontrast exam. Refer to the dedicated CT abdomen and pelvis performed concurrently for more details. OSSEOUS STRUCTURES: No suspicious lytic or blastic bone lesions. There are kbgk-de-qdprdtsd degenerative changes within the spine. There are mild degenerative changes in the shoulder joints. CT/CT chest wo IV con IMPRESSION: 1. No evidence of metastatic disease within the thorax. No suspicious new or enlarging nodules. 2. No active pulmonary disease. Post radiation changes as discussed. 3. No abnormal lymphadenopathy. 4. Geographic fatty attenuation of the liver. 5. Additional ancillary findings as discussed in the body of the report. Electronically signed by: Galdino Mcneill MD 07/12/2024 10:01 AM DESTINEY
[2024-06-30] MEDS: Barium Sulfate Oral (Vanilla) 450 ML ORAL.SUSP 900 ML PO (13:24)
== END 2024-06-30 09:08 | disposition home or self-care (01) ==
LOC: HO.CT 09:07
PROVIDERS: PCP Internal Medicine; Visit Provider Internal Medicine Medical Oncology
DX: C23 Malignant neoplasm of gallbladder (principal)
CPT/HCPCS: 71250; 74176

== ENCOUNTER → 2024-06-30 09:08 | Outpatient (BNV) | payer OTHER, SELFPAY | PROVIDERS: PCP Internal Medicine; Visit Provider Radiology Diagnostic Radiology | DX: C23 Malignant neoplasm of gallbladder (principal) | CPT/HCPCS: 71250 ==

== ENCOUNTER 2024-08-31 11:08 | Outpatient (REF) | payer OTHER, SELFPAY ==
--- NOTE | ~2024-08-31 | US_ITS ---
CLINICAL HISTORY: Bilateral Leg pain Bilateral lower extremity venous duplex ultrasound. Study was performed using color and spectral waveform analysis. Comparison: None Findings: Visualized deep veins are fully compressible with normal flow and augmentation. No popliteal cysts. No significant adenopathy. Impression: Bilateral lower extremity venous duplex ultrasound negative for DVT This document has been electronically signed by: Jamil Petty MD on 08/31/2024 22:49:28
== END 2024-08-31 11:09 | disposition home or self-care (01) ==
LOC: HO.US 11:08
PROVIDERS: PCP Internal Medicine; Visit Provider Internal Medicine Medical Oncology
DX: Z86.718 Personal history of other venous thrombosis and embolism (principal)
CPT/HCPCS: 93970

== ENCOUNTER → 2024-08-31 11:10 | Outpatient (BNV) | payer OTHER, SELFPAY | PROVIDERS: PCP Internal Medicine; Visit Provider Radiology Diagnostic Radiology | DX: M79.604 Pain in right leg (principal); M79.605 Pain in left leg | CPT/HCPCS: 93970 ==

== ENCOUNTER 2024-09-22 10:53 | Outpatient (REF) | payer OTHER, SELFPAY ==
--- NOTE | ~2024-09-22 | CT_ITS ---
CLINICAL HISTORY: Follow-up on gallbladder cancer status post RT +ch CT abdomen and pelvis with contrast Comparison: MR/SR - MR ABDOMEN WO/W CON - 04/02/24 16:[address]/IL/SR - CT ABDOMEN PELVIS W IV CON - 10/28/23 09:55 EST Findings: No consolidation or effusion. There is a new 3.7 x 3.7 cm low-density lesion within the anterior segment of the liver. An additional 8 mm cyst within the left lobe of the liver is without change. Liver parenchyma is hypodense compatible with fatty infiltration. There is a 2.5 cm right kidney cyst. Remaining abdominal organs are unremarkable. There has been a prior cholecystectomy. Unremarkable gallbladder fossa. No biliary dilatation. No bowel obstruction, pneumoperitoneum, or pneumatosis. Pelvic contents unremarkable. Normal appendix. No acute fracture. IMPRESSION: There is a new 3.7 cm nodule within the anterior segment of the liver, most likely on the basis of metastatic disease. This document has been electronically signed by: Bonnie Cat MD on 09/22/2024 14:05:08
--- OUTSIDE RECORDS SUMMARY | 2024-09-22 12:21 | XMS_ITS ---
Author Organization [facility] Address [address] [place] [address] Care Team Providers Care Rampman Name Role Phone Adria Rubio MD Primary Care Provider [phone] Active Problems Problem Noted Date Diagnosed Date Cervical spondylosis 06/30/2024 Back pain 06/30/2024 Malignant neoplasm of left breast 06/30/2024 Chest pain 06/30/2024 Chronic cough 06/30/2024 History of colon polyps 06/30/2024 Neuropathy 06/30/2024 Pneumonitis 06/30/2024 Pulmonary embolism 06/30/2024 Pulmonary nodules 06/30/2024 Gallbladder cancer 03/24/2024 Cancer Staging:Pathologic:Stage IIIB(pT2b, pN1, cM0) - Signed by Elba Krueger MD on 07/07/2024 Osteoarthritis of knee 03/24/2024 Rib pain 01/02/2021 Single acquired cyst of kidney 01/02/2021 Current Oncology Plans No current plan information found. Past Plans No past plan information found. Radiation Treatments * Treatment Site Started On Last Treated On Elapsed Days Fractions Complete Last Fraction Dose Given/Prescribed Total Dose Given/Prescribed Technique Rosalina r postop 4 5 36 25 of 25 180 cGy / 180 cGy 4,500 cGy / 4, 500 cGy 2 arc VMAT
--- OUTSIDE RECORDS SUMMARY | 2024-09-22 12:21 | XMS_ITS | Encounter Summary ---
Author Organization [facility] Address [address] [place] [address] Care Team Providers Care Robotics Specialist Name Role Phone Adria Rubio MD Primary Care Provider [phone] Reason for Visit * Reason Comments OTV Encounter Details Date Type Department Care Team (Latest Contact Info) Description 09/03/2024 10:20 AM EST - 09/03/2024 11:59 PM EST Hospital Encounter [facility] Radiation Oncology [address] [phone] Elba Krueger MD [address] [place] [address] 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CMS/HCC) (Primary Dx) Discharge Disposition: Home or Self Care Social History Tobacco Use Types Packs/Day Years Used Date Smoking Tobacco: Never Smokeless Tobacco: Never Alcohol Use Standard Drinks/Week Comments Never 0 (1 standard drink = 0.6 oz pur e alcohol) Sex and Gender Information Value Date Recorded Sex Assigned at Not on file Gender Identity Not on file Sexual Orientation Not on file Job Start Date Occupation Industry Not on file Not on file Not on file documented as of this encounter Last Filed Vital Signs Vital Sign Reading Time Taken Comments Blood Pressure - - Pulse - - Temperature - - Respiratory Rate - - Oxygen Saturation - - Inhaled Oxygen Concentration - - Weight 77.6 kg (171 lb) 09/03/2024 10:38 AM EST Height - - Body Mass Index 31.28 07/07/2024 8:40 AM EST documented in this encounter Medications at Time of Discharge Medication Sig Dispensed Refills Start Date End Date capecitabine (XELODA) 500 mg tablet Take 2 tablets (1,000 mg total) by mouth 2 (two) times a day Take Friday through Fridays only. Take 30 minutes after each meal. 06/25/2024 cholecalciferol (VITAMIN D-3) 25 mcg (1,000 unit) tablet Take 1 tablet (1,000 Units total) by mouth 1 (one) time each day. Eliquis 5 mg tablet Take 1 tablet (5 mg total) by mouth 2 (two) times a day. gabapentin (NEURONTIN) 300 mg capsule Take 3 capsules (900 mg total) by mouth 1 (one) time each day. multivitamin (bkdogppctcvl-ivyl-gvftts ls) tablet Take 1 tablet by mouth daily. omeprazole (PriLOSEC) [address] capsule Take 1 capsule (20 mg total) by mouth 2 (two) times a day. ondansetron (ZOFRAN) 8 mg tablet Take 1 tablet (8 mg total) by mouth every 8 (eight) hours if needed for nausea or vomiting. TylenoL 325 mg tablet Take 2 tablets (650 mg total) by mouth every 6 hours as needed. 01/18/2024 documented as of this encounter Discharge Disposition Disposition Code Departure Means Destination Home or Self Care documented in this encounter Progress Notes * Faina Camacho RN - 09/03/2024 10:20 AM EST Accompanied by: self Subjective: Pt reports she felt some pulling/pain like pinching like needles sensation in her abd after radiation this has not changed. She also reports occ nausea but no vomiting she will sometimes use nausea medication. Seeing Dr. Doan 09/27/24 Pt reports increased GERD occ. I am having pain in my abdomin on scale 7 this comes and goes. Pt also informed me that she is having pain in my left leg and is having an ultra sound and she is having a ultra sound. Pt has not gotten results yet. Pt reports pain from my left buttock down to myknee is better Dr. Soliz present and discussed this with pt that is could be sciatica. Pt reports swelling of arms and legs. * Elba Krueger MD - 09/03/2024 10:20 AM EST Radiation Oncology On Treatment Visit Patient Name: Susana Sanchez Attending Provider: Elba Krueger MD Encounter Date: 09/03/2024 DIAGNOSIS: 1. 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CMS/HCC) STAGE: Cancer Staging 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CMS/HCC) Staging form: Gallbladder, AJCC 8th Edition - Pathologic: Stage IIIB (pT2b, pN1, cM0) - Signed by Elba Krueger MD on 07/07/2024 DIAGNOSIS: 01/14/2024- ([facility]) total cholecystectomy and inclusion of surrounding tissue, abdominal lymphadenectomy including celiac gastric portal. Pancreatic by Dr. David operative findings described gallbladder adherent to the liver and the distal fundus far from the hilum. Partial resection of segment 5 was performed en bloc with the gallbladder. Apr - Jun 2024 gemcitabine [address] capecitabine with Dr. Doan at [facility] Interval/Dose History: Radiation Therapy: Abdomen Treatment Period Technique Fraction Dose Fractions Total Dose Course 1 08/05/2024-09/03/2024 (days elapsed: 29) Gallbladder postop 08/05/2024-09/03/2024 2 arc VMAT 180 / 180 cGy 3600 / 4,500 cGy TOTAL PLANNED DOSE: 4500 cGy CONCURRENT THERAPY: xeloda (med onc Dr. Doan) Accompanied by: self Subjective: Pt reports she felt some pulling/pain like pinching like needles sensation in her abd after radiation this has not changed. She also reports occ nausea but no vomiting she will sometimes use nausea medication. Seeing Dr. Doan 09/27/24 Pt reports increased GERD occ. I am having pain in my abdomin on scale 7 this comes and goes. Pt noticed some pain and promient vein in left leg. She reports she had ultrasound at [facility] for evaluation and is now being referred to neurology. Patient having significant fatigue. Physical Exam: There were no vitals filed for this visit. Weight: 77.6 kg (171 lb) Baseline weight 170 lb on 08/06/24 General: appears well, no apparent distress; awake and alert Lab Results Component Value Date WBC 7.7 08/30/2024 HGB 12.0 08/30/2024 HCT 36.5 08/30/2024 MCV 93.4 08/30/2024 PLT 184 08/30/2024 Lab Results Component Value Date NA 133 08/30/2024 K 4.1 08/30/2024 CL 102 08/30/2024 CO2 24 08/30/2024 GLUCOSE 99 08/30/2024 BUN 10 08/30/2024 CREATININE 0.65 08/30/2024 CALCIUM 8.8 08/30/2024 PROT 7.5 08/30/2024 ALBUMIN 3.4 08/30/2024 BILITOT 0.4 08/30/2024 AST 18 08/30/2024 ALT 26 08/30/2024 ALKPHOS 95 08/30/2024 EGFR 100 08/30/2024 Assessment/Plan: She is tolerating treatments well. Continue radiation as scheduled. I have reviewed set-up, dosimetry, and CBCT. Nausea: mild and tolerable, using zofran only as needed. May take 1-2 hrs before RT. May use again later in the day (8 hrs after first dose) if needed. Pulling sensation in abdomen. Will monitor. May take tylenol if bothersome. Weekly weight, currently is stable. FU with neurology for left leg. FU Dr. Doan 09/27/24. EOT 09/10/14, FU Rad Onc in ~ 4 weeks with CAR SALES CONSULTANT Megan Mcneill. Elba Krueger MD 09/03/2024 10:58 AM EST documented in this encounter Plan of Treatment Upcoming Encounters Date Type Department Care Team (Late st Contact Info) Description 10/05/2024 10:30 AM EST Appointment [facility] Radiation Oncology [address] [place] [address] [address] [place] [address] Megan Mcneill NP [address] [place] [address] [facility] [place] [phone] documented as of this encounter Visit Diagnoses Diagnosis 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CMS/HCC)- Primary Malignant neoplasm of gallbladder documented in this encounter Care Teams Robotics Specialist Relationship Specialty Start Date End Date Adria Rubio MD [address] [place] [phone] PCP - General Internal Medicine 08/04/24 documented as of this encounter
--- OUTSIDE RECORDS SUMMARY | 2024-09-22 12:21 | XMS_ITS | Encounter Summary ---
Author Organization [facility] Address [address] [place] [address] Care Team Providers Care Open Source Developer Name Role Phone Adria Rubio MD Primary Care Provider [phone] Encounter Details Date Type Department Care Team (Latest Contact Info) Description 09/10/2024 10:20 AM EST - 09/10/2024 11:59 PM EST Hospital Encounter [facility] Radiation Oncology [address] [facility] 2nd [place] [phone] Megan Mcneill NP [address] [place] [address] [facility] [place] [address] 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CMS/HCC) (Primary Dx) Discharge Disposition: [...] - Inhaled Oxygen Concentration - - Weight 77.8 kg (171 lb 9.6 oz) 09/10/2024 10:30 AM EST Height - - Body Mass Index 31.39 07/07/2024 8:40 AM EST documented in this [...] mouth 1 (one) time each day. multivitamin (psqoaszczgol-skaf-cyahkk ls) tablet Take 1 tablet by mouth [...] documented in this encounter Progress Notes * Megan Mcneill, FRANCISCA - 09/10/2024 10:20 AM EST Discharge Instructions after Radiation Treatments Side effects present at the end of treatment will usually improve in a few weeks. If you developed a skin reaction, it may continue to worsen for the next 7-10 days. Continue to be gentle with your skin. Your skin will be more sensitive to sunburn. Protect yourself from the sun. If needed, use sunscreen at least SPF 30. Fatigue and weakness may continue for several weeks. Be sure to get plenty of rest. Plan your activities accordingly. Continue healthy eating habits. Stay well hydrated, drink plenty of fluids. Follow-up visits will be scheduled so your Radiation physician can monitor your progress. Follow up in 4 - 6 weeks. Go to hotel front office manager for follow up appointment. Please call [phone] and select option #2 with any questions or concerns prior to your next visit. documented in this encounter Plan of Treatment Upcoming Encounters Date Type Department Care Team (Late st Contact Info) Description 10/05/2024 10:30 AM EST Appointment [facility] Radiation Oncology [address] [place] [address] Megan Mcneill NP [address] [place] [address] [facility] [place] [phone] documented as of this encounter Visit Diagnoses Diagnosis 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CMS/HCC)- Primary Malignant neoplasm of gallbladder documented in this encounter Care Teams Open Source Developer Relationship Specialty Start Date End Date Adria Rubio MD [address] [facility] [place] [address] PCP - General Internal Medicine 08/04/24 documented as of this encounter
--- OUTSIDE RECORDS SUMMARY | 2024-09-22 12:21 | XMS_ITS | Clinical Summary ---
Author Organization [facility] Address [address] [place] [address] Care Team Providers Care Rim Technician Name Role Phone Adria Rubio MD Primary Care Provider [phone] Allergies Active Allergy Reactions Criticality Noted Date Comments Penicillins Swelling 06/30/2024 Streptomycin Swelling 06/30/2024 Medications Medication Sig Dispensed Refills Start Date End Date Status cholecalciferol (VITAMIN D-3) 25 mcg (1,000 unit) tablet Take 1 tablet (1,000 Units total) by mouth 1 (one) time each day. Active TylenoL 325 mg tablet Take 2 tablets (650 mg total) by mouth every 6 hours as needed. 01/18/2024 Active Eliquis 5 mg tablet Take 1 tablet (5 mg total) by mouth 2 (two) times a day. Active capecitabine (XELODA) 500 mg tablet Take 2 tablets (1,000 mg total) by mouth 2 (two) times a day Take Friday through Fridays only. Take 30 minutes after each meal. 06/25/2024 Active gabapentin (NEURONTIN) 300 mg capsule Take 3 capsules (900 mg total) by mouth 1 (one) time each day. Active multivitamin (eymtreekuuli-plbt-gn nerals) tablet Take 1 tablet by mouth daily. Active omeprazole (PriLOSEC) [address] capsule Take 1 capsule (20 mg total) by mouth 2 (two) times a day. Active ondansetron (ZOFRAN) 8 mg tablet Take 1 tablet (8 mg total) by mouth every 8 (eight) hours if needed for nausea or vomiting. Active Active Problems Problem Noted Date Diagnosed Date [...] 01/02/2021 Single acquired cyst of kidney 01/02/2021 Encounters Date Type Department Care Team Description 09/10/2024 10:20 AM EST - 09/10/2024 11:59 PM EST Hospital Encounter [facility] Radiation Oncology [address] [place] [phone] Megan Mcneill NP 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CMS/HCC) (Primary Dx) Discharge Disposition: Home or Self Care 09/10/2024 10:05 AM EST - 09/10/2024 11:59 PM EST Hospital Encounter [facility] Radiation Oncology [address] [place] [phone] Discharge Disposition: Home or Self Care 09/09/2024 10:04 AM EST - 09/09/2024 11:59 PM EST Hospital Encounter [facility] Radiation Oncology [address] [place] [phone] Discharge Disposition: Home or Self Care 09/08/2024 10:05 AM EST - 09/08/2024 11:59 PM EST Hospital Encounter [facility] Radiation Oncology [address] [place] [phone] Discharge Disposition: Home or Self Care 09/07/2024 10:03 AM EST - 09/07/2024 11:59 PM EST Hospital Encounter [facility] Radiation Oncology [address] [place] [phone] Discharge Disposition: Home or Self Care 09/06/2024 9:56 AM EST - 09/06/2024 11:59 PM EST Hospital Encounter [facility] Radiation Oncology [address] [place] [phone] Discharge Disposition: Home or Self Care 09/03/2024 10:20 AM EST - 09/03/2024 11:59 PM EST Hospital Encounter [facility] Radiation Oncology [address] [place] [phone] Elba Krueger MD 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CMS/HCC) (Primary Dx) Discharge Disposition: Home or Self Care 09/03/2024 10:07 AM EST - 09/03/2024 11:59 PM EST Hospital Encounter [facility] Radiation Oncology [address] [place] [phone] Discharge Disposition: Home or Self Care 09/02/2024 9:49 AM EST - 09/02/2024 11:59 PM EST Hospital Encounter [facility] Radiation Oncology [address] [place] [phone] Discharge Disposition: Home or Self Care 08/31/2024 10:06 AM EST - 08/31/2024 11:59 PM EST Hospital Encounter [facility] Radiation Oncology [address] [place] [phone] Discharge Disposition: Home or Self Care 08/30/2024 10:20 AM EST - 08/30/2024 11:59 PM EST Hospital Encounter [facility] Radiation Oncology [address] [place] [phone] Amadou Soliz MD 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CMS/HCC) (Primary Dx) Discharge Disposition: Home or Self Care 08/30/2024 9:36 AM EST - 08/30/2024 11:59 PM EST Hospital Encounter [facility] Radiation Oncology [address] [place] [phone] Discharge Disposition: Home or Self Care 08/27/2024 10:09 AM EST - 08/27/2024 11:59 PM EST Hospital Encounter [facility] Radiation Oncology [address] [place] [phone] Discharge Disposition: Home or Self Care 08/26/2024 9:59 AM EST - 08/26/2024 11:59 PM EST Hospital Encounter [facility] Radiation Oncology [address] [place] [phone] Discharge Disposition: Home or Self Care 08/24/2024 10:00 AM EST - 08/24/2024 11:59 PM EST Hospital Encounter [facility]iation [facility]cology [address] [place] [phone] Discharge Disposition: Home or Self Care 08/23/2024 10:11 AM EST - 08/23/2024 11:59 PM EST Hospital Encounter [facility]iation Oncology [address] [place] [phone] Discharge Disposition: Home or Self Care 08/20/2024 10:20 AM EST - 08/20/2024 11:59 PM EST Hospital Encounter [facility] Radiation Oncology [address] [place] [phone] Elba Krueger MD 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CMS/HCC) (Primary Dx) Discharge Disposition: Home or Self Care 08/20/2024 10:07 AM EST - 08/20/2024 11:59 PM EST Hospital Encounter [facility] Radiation Oncology [address] [place] [phone] Discharge Disposition: Home or Self Care 08/19/2024 10:08 AM EST - 08/19/2024 11:59 PM EST Hospital Encounter [facility] Radiation Oncology [address] [place] [phone] Discharge Disposition: Home or Self Care 08/18/2024 10:05 AM EST - 08/18/2024 11:59 PM EST Hospital Encounter [facility] Radiation Oncology [address] [place] [phone] Discharge Disposition: Home or Self Care 08/17/2024 10:04 AM EST - 08/17/2024 11:59 PM EST Hospital Encounter [facility] Radiation Oncology [address] [place] [phone] Discharge Disposition: Home or Self Care 08/16/2024 9:52 AM EST - 08/16/2024 11:59 PM EST Hospital Encounter [facility] Radiation Oncology [address] [place] [phone] Discharge Disposition: Home or Self Care 08/13/2024 10:17 AM EST - 08/13/2024 11:59 PM EST Hospital Encounter [facility]iation [facility]cology [address] [place] [phone] Elba Krueger MD 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CMS/HCC) (Primary Dx) Discharge Disposition: Home or Self Care 08/13/2024 9:49 AM EST - 08/13/2024 11:59 PM EST Hospital Encounter [facility]iation [facility]cology [address] [place] [phone] Discharge Disposition: Home or Self Care 08/12/2024 10:07 AM EST - 08/12/2024 11:59 PM EST Hospital Encounter [facility]iation [facility]cology [address] [place] [phone] Discharge Disposition: Home or Self Care 08/11/2024 10:29 AM EST - 08/11/2024 11:59 PM EST Hospital Encounter [facility]iation [facility]cology [address] [place] [phone] Discharge Disposition: Home or Self Care 08/10/2024 10:22 AM EST - 08/10/2024 11:59 PM EST Hospital Encounter [facility]iation Oncology [address] [place] [phone] Discharge Disposition: Home or Self Care 08/09/2024 10:45 AM EST - 08/09/2024 11:59 PM EST Hospital Encounter [facility]iation [facility]cology [address] [place] [phone] Discharge Disposition: Home or Self Care 08/06/2024 10:39 AM EST - 08/06/2024 11:59 PM EST Hospital Encounter [facility] Radiation Oncology [address] [place] [phone] Elba Krueger MD 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CMS/HCC) (Primary Dx) Discharge Disposition: Home or Self Care 08/06/2024 10:07 AM EST - 08/06/2024 11:59 PM EST Hospital Encounter [facility] Radiation Oncology [address] [place] [phone] Discharge Disposition: Home or Self Care 08/05/2024 11:15 AM EST - 08/05/2024 11:59 PM EST Hospital Encounter [facility]iation [facility]cology [address] [place] [phone] Discharge Disposition: Home or Self Care 08/05/2024 10:58 AM EST - 08/05/2024 11:59 PM EST Hospital Encounter [facility]iation [facility] [address] [place] [phone] Elba Krueger MD Discharge Disposition: Home or Self Care 08/04/2024 12:35 PM EST - 08/04/2024 11:59 PM EST Hospital Encounter [facility]iation [facility]cology [address] [place] [phone] Discharge Disposition: Home or Self Care 07/21/2024 11:24 AM EST - 07/21/2024 11:59 PM EST Hospital Encounter [facility]iation [facility]cology [address] [place] [phone] Elba Krueger MD 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CMS/HCC) (Primary Dx) Discharge Disposition: Home or Self Care 07/21/2024 10:51 AM EST - 07/21/2024 11:59 PM EST Hospital Encounter [facility] Radiation Oncology [address] [place] [phone] 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CMS/HCC) Discharge Disposition: Home or Self Care 07/21/2024 [facility] Radiation Oncology [address] [place] [phone] Maricruz Muhammad RN 07/21/2024 Social Work [facility] [address] [place] [phone] Jack Bright BLOCK 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 07/07/2024 8:30 AM EST - 07/07/2024 11:59 PM EST Hospital Encounter [facility] Radiation Oncology [address] [phone] Discharge Disposition: Home or Self Care 07/07/2024 8:15 AM EST - 07/07/2024 11:59 PM EST Hospital Encounter [facility] Radiation [facility]cology [address] [phone] Elba Krueger MD 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CMS/HCC) (Primary Dx) Discharge Disposition: Home or Self Care from Last 3 Months Surgical History Surgery Date Site/Laterality Comments ESOPHAGOGASTRODUODENOSCOPY BREAST LUMPECTOMY Right CHOLECYSTECTOMY COLONOSCOPY 10/30/2018 - 11/29/2018 VEIN LIGATION AND STRIPPING Medical History Medical History Date Comments Breast cancer (CMS/HCC) Clotting disorder (CMS/HCC) Family History Medical History Relation Name Comments No Known Problems Brother No Known Problems Father No Known Problems Father's Brother No Known Problems Father's Sister No Known Problems Maternal Grandfather No Known Problems Maternal Grandmother No Known Problems Mother No Known Problems Mother's Brother No Known Problems Mother's Sister No Known Problems Other No Known Problems Paternal Grandfather No Known Problems Paternal Grandmother No Known Problems Sister Cancer Neg Hx Relation Name Status Comments Brother Father Father's Brother Father's Sister Maternal Grandfather Maternal Grandmother Mother Mother's Brother Mother's Sister Other Paternal Grandfather Paternal Grandmother Sister Social History Tobacco Use Types Packs/Day Years Used Date Smoking Tobacco: Never Smokeless Tobacco: Never Tobacco Cessation:Counseling Given: Not Answered Alcohol Use Standard Drinks/Week Comments Never 0 (1 standard drink = 0.6 oz pur e alcohol) Sex and Gender Information Value Date Recorded Sex Assigned at Not on file Gender Identity Not on file Sexual Orientation Not on file Job Start Date Occupation Industry Not on file Not on file Not on file Obstetrics History Last Filed Vital Signs Vital Sign Reading Time Taken Comments Blood Pressure 134/69 07/07/2024 8:40 AM EST Pulse 92 07/07/2024 8:40 AM EST Temperature 35.7 ??C (96.2 ??F) 07/07/2024 8:40 AM ES T Respiratory Rate 16 07/07/2024 8:40 AM EST Oxygen Saturation 99% 07/07/2024 8:40 AM EST Inhaled Oxygen Concentration - - Weight 77.8 kg (171 lb 9.6 oz) 09/10/2024 10:30 AM EST Height 157.5 cm (5' 2 ) 07/07/2024 8:40 AM EST Body Mass Index 31.39 07/07/2024 8:40 AM EST Plan of Treatment Upcoming Encounters Date Type Department Care Team (Late st Contact Info) Description 10/05/2024 10:30 AM EST Appointment [facility] Radiation Oncology [address] [place] [phone] Megan Mcneill NP [address] [place] [address] [address] [place] [phone] Health Maintenance Due Date Last Done Comments Breast Cancer Screening 1961 Pneumococcal Vaccine: Pediatrics (0 to 5 Years) and At-Risk Patients (6 to 64 Years) (1 of 2 - PCV) 12/13/1967 Zoster Vaccines (1 of 2) 1980 Cervical Cancer Screening: Pap Smear 1982 RSV Immunization Patients 60+ Years Old (1 - Risk 60-74 years 1-dose series) 2021 COVID-19 Vaccine ( season) 2024 01/07/2022, 08/01/2021, 01/24/2021, Additional history exists Colorectal Cancer Screening: Colonoscopy 06/17/2024 Depression Screening 06/17/2024 HIV Screening 06/17/2024 Hepatitis C Screening 06/17/2024 Social Influencers of Health Screening 06/17/2024 DTaP,Tdap,and Td Vaccines (3 - Td or Tdap) 03/28/2025 03/28/2015, 03/28/2015 Influenza Vaccine Completed 05/13/2024, , 05/16/2022, Additional history exists HIB Vaccines Aged Out No longer eligi ble based on patient's age to complete this topic HPV Vaccines Aged Out No longer eligi ble based on patient's age to complete this topic Hepatitis A Vaccines Aged Out No long er eligible based on patient's age to complete this topic Hepatitis B Vaccines Aged Out No long er eligible based on patient's age to complete this topic IPV Vaccines Aged Out No longer eligi ble based on patient's age to complete this topic MMR Vaccines Aged Out No longer eligi ble based on patient's age to complete this topic Meningococcal ACWY Vaccine Aged Out N o longer eligible based on patient's age to complete this topic RSV Immunization Patients Under 20 months Aged Out No longer eligible based on patient's age to complete this topic Varicella Vaccines Aged Out No longer eligible based on patient's age to complete this topic Procedures Procedure Name Priority Date/Time Associated Diagnosis Comments RAD ONC MSQ TREATMENT SUMMARY Routine 09/10/2024 10:23 AM EST RAD ONC MSQ TREATMENT SUMMARY Routine 09/09/2024 10:28 AM EST RAD ONC MSQ TREATMENT SUMMARY Routine 09/08/2024 10:22 AM EST RAD ONC MSQ TREATMENT SUMMARY Routine 09/07/2024 10:45 AM EST RAD ONC MSQ TREATMENT SUMMARY Routine 09/06/2024 10:21 AM EST COMPLETE BLOOD COUNT Routine 09/06/2024 10:05 AM EST Malignant neoplasm of gallbladder (CMS/HCC) COMPREHENSIVE METABOLIC PANEL Routine 09/06/2024 10:05 AM EST Malignant neoplasm of gallbladder (CMS/HCC) RAD ONC MSQ TREATMENT SUMMARY Routine 09/03/2024 10:26 AM EST RAD ONC MSQ TREATMENT SUMMARY Routine 09/02/2024 10:27 AM EST RAD ONC MSQ TREATMENT SUMMARY Routine 08/31/2024 10:18 AM EST RAD ONC MSQ TREATMENT SUMMARY Routine 08/30/2024 10:25 AM EST COMPLETE BLOOD COUNT Routine 08/30/2024 10:08 AM EST Malignant neoplasm of gallbladder (CMS/HCC) COMPREHENSIVE METABOLIC PANEL Routine 08/30/2024 10:08 AM EST Malignant neoplasm of gallbladder (CMS/HCC) RAD ONC MSQ TREATMENT SUMMARY Routine 08/27/2024 10:25 AM EST RAD ONC MSQ TREATMENT SUMMARY Routine 08/26/2024 10:27 AM EST RAD ONC MSQ TREATMENT SUMMARY Routine 08/24/2024 10:45 AM EST COMPLETE BLOOD COUNT Routine 08/23/2024 10:51 AM EST Malignant neoplasm of gallbladder (CMS/HCC) COMPREHENSIVE METABOLIC PANEL Routine 08/23/2024 10:51 AM EST Malignant neoplasm of gallbladder (CMS/HCC) RAD ONC MSQ TREATMENT SUMMARY Routine 08/23/2024 10:30 AM EST RAD ONC MSQ TREATMENT SUMMARY Routine 08/20/2024 10:20 AM EST RAD ONC MSQ TREATMENT SUMMARY Routine 08/19/2024 10:22 AM EST RAD ONC MSQ TREATMENT SUMMARY Routine 08/18/2024 10:20 AM EST RAD ONC MSQ TREATMENT SUMMARY Routine 08/17/2024 10:24 AM EST COMPLETE BLOOD COUNT Routine 08/16/2024 10:48 AM EST Malignant neoplasm of gallbladder (CMS/HCC) COMPREHENSIVE METABOLIC PANEL Routine 08/16/2024 10:48 AM EST Malignant neoplasm of gallbladder (CMS/HCC) RAD ONC MSQ TREATMENT SUMMARY Routine 08/16/2024 10:27 AM EST RAD ONC MSQ TREATMENT SUMMARY Routine 08/13/2024 10:16 AM EST RAD ONC MSQ TREATMENT SUMMARY Routine 08/12/2024 10:52 AM EST RAD ONC MSQ TREATMENT SUMMARY Routine 08/11/2024 10:50 AM EST RAD ONC MSQ TREATMENT SUMMARY Routine 08/10/2024 11:10 AM EST COMPLETE BLOOD COUNT Routine 08/09/2024 1:12 PM EST Malignant neoplasm of gallbladder (CMS/HCC) COMPREHENSIVE METABOLIC PANEL Routine 08/09/2024 1:12 PM EST Malignant neoplasm of gallbladder (CMS/HCC) RAD ONC MSQ TREATMENT SUMMARY Routine 08/09/2024 11:11 AM EST RAD ONC MSQ TREATMENT SUMMARY Routine 08/06/2024 10:39 AM EST from Last 3 Months Results * Rad Onc Msq Treatment Summary (09/10/2024 10:23 AM EST) Treatment Site Gallbladder postop MOSAIQ RADIATION ONCOLOGY Course Number 1 MOSAIQ RADIATION ONCOLOGY Prescribed Fractional Dose 180 cGray MOSAIQ RADIATION ONCOLOGY Prescribed Total Dose 4,500 cGray MOSAIQ RADIATION ONCOLOGY Actual Fractions Delivered 25 MOSAIQ RADIATION ONCOLOGY Actual Session Delivered Dose 180 cGray MOSAIQ RADIATION ONCOLOGY Actual Total Dose 4,500 cGray MOSAIQ RADIATION ONCOLOGY Prescribed Technique 2 arc VMAT MOSAIQ RADIATION ONCOLOGY Elapsed Days 36 MOSAIQ RADIATION ONCOLOGY Start Date 08/05/2024 MOSAIQ RADIATION ONCOLOGY Last Date 09/10/2024 MOSAIQ RADIATION ONCOLOGY Prescribed Number of Fractions 25 MOSAIQ RADIATION ONCOLOGY 09/10/2024 10:2 3 AM EST Physician Radiation Oncology RADIATIO N ONCOLOGY ORDERABLES MOSAIQ RADIATION ONCOLOGY * Rad Onc Msq Treatment Summary (09/09/2024 10:28 AM EST) Treatment Site Gallbladder postop MOSAIQ RADIATION ONCOLOGY Course Number 1 MOSAIQ RADIATION ONCOLOGY Prescribed Fractional Dose 180 cGray MOSAIQ RADIATION ONCOLOGY Prescribed Total Dose 4,500 cGray MOSAIQ RADIATION ONCOLOGY Actual Fractions Delivered 24 MOSAIQ RADIATION ONCOLOGY Actual Session Delivered Dose 180 cGray MOSAIQ RADIATION ONCOLOGY Actual Total Dose 4,320 cGray MOSAIQ RADIATION ONCOLOGY Prescribed Technique 2 arc VMAT MOSAIQ RADIATION ONCOLOGY Elapsed Days 35 MOSAIQ RADIATION ONCOLOGY Start Date 08/05/2024 MOSAIQ RADIATION ONCOLOGY Last Date 09/09/2024 MOSAIQ RADIATION ONCOLOGY Prescribed Number of Fractions 25 MOSAIQ RADIATION ONCOLOGY 09/09/2024 10:2 8 AM EST Physician Radiation Oncology RADIATIO N ONCOLOGY ORDERABLES MOSAIQ RADIATION ONCOLOGY * Rad Onc Msq Treatment Summary (09/08/2024 10:22 AM EST) Treatment Site Gallbladder postop MOSAIQ RADIATION ONCOLOGY Course Number 1 MOSAIQ RADIATION ONCOLOGY Prescribed Fractional Dose 180 cGray MOSAIQ RADIATION ONCOLOGY Prescribed Total Dose 4,500 cGray MOSAIQ RADIATION ONCOLOGY Actual Fractions Delivered 23 MOSAIQ RADIATION ONCOLOGY Actual Session Delivered Dose 180 cGray MOSAIQ RADIATION ONCOLOGY Actual Total Dose 4,140 cGray MOSAIQ RADIATION ONCOLOGY Prescribed Technique 2 arc VMAT MOSAIQ RADIATION ONCOLOGY Elapsed Days 34 MOSAIQ RADIATION ONCOLOGY Start Date 08/05/2024 MOSAIQ RADIATION ONCOLOGY Last Date 09/08/2024 MOSAIQ RADIATION ONCOLOGY Prescribed Number of Fractions 25 MOSAIQ RADIATION ONCOLOGY 09/08/2024 10:2 2 AM EST Physician Radiation Oncology RADIATIO N ONCOLOGY ORDERABLES MOSAIQ RADIATION ONCOLOGY * Rad Onc Msq Treatment Summary (09/07/2024 10:45 AM EST) Treatment Site Gallbladder postop MOSAIQ RADIATION ONCOLOGY Course Number 1 MOSAIQ RADIATION ONCOLOGY Prescribed Fractional Dose 180 cGray MOSAIQ RADIATION ONCOLOGY Prescribed Total Dose 4,500 cGray MOSAIQ RADIATION ONCOLOGY Actual Fractions Delivered 22 MOSAIQ RADIATION ONCOLOGY Actual Session Delivered Dose 180 cGray MOSAIQ RADIATION ONCOLOGY Actual Total Dose 3,960 cGray MOSAIQ RADIATION ONCOLOGY Prescribed Technique 2 arc VMAT MOSAIQ RADIATION ONCOLOGY Elapsed Days 33 MOSAIQ RADIATION ONCOLOGY Start Date 08/05/2024 MOSAIQ RADIATION ONCOLOGY Last Date 09/07/2024 MOSAIQ RADIATION ONCOLOGY Prescribed Number of Fractions 25 MOSAIQ RADIATION ONCOLOGY 09/07/2024 10:4 5 AM EST Physician Radiation Oncology RADIATIO N ONCOLOGY ORDERABLES Performing Organization Address City/State/[facility] Co de Phone Number MOSAIQ RADIATION ONCOLOGY * Rad Onc Msq Treatment Summary (09/06/2024 10:21 AM EST) Treatment Site Gallbladder postop MOSAIQ RADIATION ONCOLOGY Course Number 1 MOSAIQ RADIATION ONCOLOGY Prescribed Fractional Dose 180 cGray MOSAIQ RADIATION ONCOLOGY Prescribed Total Dose 4,500 cGray MOSAIQ RADIATION ONCOLOGY Actual Fractions Delivered 21 MOSAIQ RADIATION ONCOLOGY Actual Session Delivered Dose 180 cGray MOSAIQ RADIATION ONCOLOGY Actual Total Dose 3,780 cGray MOSAIQ RADIATION ONCOLOGY Prescribed Technique 2 arc VMAT MOSAIQ RADIATION ONCOLOGY Elapsed Days 32 MOSAIQ RADIATION ONCOLOGY Start Date 08/05/2024 MOSAIQ RADIATION ONCOLOGY Last Date 09/06/2024 MOSAIQ RADIATION ONCOLOGY Prescribed Number of Fractions 25 MOSAIQ RADIATION ONCOLOGY 09/06/2024 10:2 1 AM EST Physician Radiation Oncology RADIATIO N ONCOLOGY ORDERABLES Performing Organization Address City/[facility] Co de Phone Number MOSAIQ RADIATION ONCOLOGY * Complete blood count (09/06/2024 10:05 AM EST) Only the most recent of5 resultswithin the time period is included. WBC 6.9 4.8 - 10.8 K/mcL LAB HEMETOLOGY METHOD 09/06/2024 11:39 AM EST [facility] RBC 3.80 3.80 - 4.80 M/mcL LAB HEMETOLOGY METHOD 09/06/2024 11:39 AM EST [facility] Hemoglobin 11.8 11.5 - 16.0 g/dL LAB HEMETOLOGY METHOD 09/06/2024 11:39 AM EST [facility] Hematocrit 36.0 35.0 - 47.0 % LAB HEMETOLOGY METHOD 09/06/2024 11:39 AM EST [facility] MCV 94.0 79.0 - 98.0 FL LAB HEMETOLOGY METHOD 09/06/2024 11:39 AM EST [facility] MCH 30.8 27.0 - 32.0 pcg LAB HEMETOLOGY METHOD 09/06/2024 11:39 AM EST [facility] MCHC 32.8 32.0 - 37.0 g/dL LAB HEMETOLOGY METHOD 09/06/2024 11:39 AM EST [facility] RDW 15.0 11.0 - 15.0 % LAB HEMETOLOGY METHOD 09/06/2024 11:39 AM [facility] Platelets 179 130 - 400 K/mcL LAB HEMETOLOGY METHOD 09/06/2024 11:39 AM [facility] MPV 10.0 7.0 - 11.0 FL LAB HEMETOLOGY METHOD 09/06/2024 11:39 AM EST [facility] NRBC 0.0 <1.0 % LAB HEMETOLOGY METHOD 09/06/2024 11:39 AM [facility] NRBC Absolute 0.00 <0.10 K/mcL LAB HEMETOLOGY METHOD 09/06/2024 11:39 AM [facility] Blood Venous blood specimen / Unknown Venipuncture / Unknown 09/06/2024 10:05 AM EST 09/06/2024 11:13 AM EST Elliott Doan MD LAB BLOOD ORDERABLES [facility] [address] [place] [address], * (ABNORMAL) Comprehensive metabolic panel (09/06/2024 10:05 AM EST) Only the most recent of5 resultswithin the time period is included. Sodium 135 133 - 145 mmol/L LAB CHEMISTRY METHOD 09/06/2024 11:42 AM [facility] Potassium 3.8 3.5 - 5.5 mmol/L LAB CHEMISTRY METHOD 09/06/2024 11:42 AM [facility] Chloride 103 96 - 110 mmol/L LAB CHEMISTRY METHOD 09/06/2024 11:42 AM [facility] CO2 27 21 - 32 mmol/L LAB CHEMISTRY METHOD 09/06/2024 11:42 AM [facility] Anion Gap 5 3 - 11 LAB CHEMISTRY METHOD 09/06/2024 11:42 AM [facility] Glucose 101(H) 70 - 100 mg/dL LAB CHEMISTRY METHOD 09/06/2024 11:42 AM [facility] BUN 14 5 - 25 mg/dL LAB CHEMISTRY METHOD 09/06/2024 11:42 AM [facility] Creatinine 0.67 0.50 - 1.10 mg/dL LAB CHEMISTRY METHOD 09/06/2024 11:42 AM [facility] eGFR 99 >=60 mL/min/1. 73m2 LAB CHEMISTRY METHOD 09/06/2024 11:42 AM [facility] Comment:Calculation based on the??Chronic Kidney Disease Epidemiology Collaboration (CKD-EPI) equation refit??without adjustment for race. BUN/Creatinine Ratio 20.9 LAB CHEMISTRY METHOD 09/06/2024 11:42 AM [facility] Calcium 8.5 8.5 - 10.5 mg/dL LAB CHEMISTRY METHOD 09/06/2024 11:42 AM [facility] AST (SGOT) 16 10 - 42 unit/L LAB CHEMISTRY METHOD 09/06/2024 11:42 AM [facility] [facility] ALT (SGPT) 27 10 - 60 unit/L LAB CHEMISTRY METHOD 09/06/2024 11:42 AM [facility] Alkaline Phosphatase 103 42 - 121 unit/L LAB CHEMISTRY METHOD 09/06/2024 11:42 AM EST [facility] Total Protein 7.4 6.0 - 8.0 g/dL LAB CHEMISTRY METHOD 09/06/2024 11:42 AM EST [facility] Albumin 3.3 3.2 - 5.0 g/dL LAB CHEMISTRY METHOD 09/06/2024 11:42 AM EST [facility] Total Bilirubin 0.3 0.0 - 1.4 mg/dL LAB CHEMISTRY METHOD 09/06/2024 11:42 AM EST [facility] Blood Venous blood specimen / Unknown Venipuncture / Unknown 09/06/2024 10:05 AM EST 09/06/2024 11:13 AM EST Elliott Doan MD LAB BLOOD ORDERABLES [facility] [address] [place] [address], * Rad Onc Msq Treatment Summary (09/03/2024 10:26 AM EST) Treatment Site Gallbladder postop MOSAIQ RADIATION ONCOLOGY Course Number 1 MOSAIQ RADIATION ONCOLOGY Prescribed Fractional Dose 180 cGray MOSAIQ RADIATION ONCOLOGY Prescribed Total Dose 4,500 cGray MOSAIQ RADIATION ONCOLOGY Actual Fractions Delivered 20 MOSAIQ RADIATION ONCOLOGY Actual Session Delivered Dose 180 cGray MOSAIQ RADIATION ONCOLOGY Actual Total Dose 3,600 cGray MOSAIQ RADIATION ONCOLOGY Prescribed Technique 2 arc VMAT MOSAIQ RADIATION ONCOLOGY Elapsed Days 29 MOSAIQ RADIATION ONCOLOGY Start Date 08/05/2024 MOSAIQ RADIATION ONCOLOGY Last Date 09/03/2024 MOSAIQ RADIATION ONCOLOGY Prescribed Number of Fractions 25 MOSAIQ RADIATION ONCOLOGY 09/03/2024 10:2 6 AM EST Physician Radiation Oncology RADIATIO N ONCOLOGY ORDERABLES MOSAIQ RADIATION ONCOLOGY * Rad Onc Msq Treatment Summary (09/02/2024 10:27 AM EST) Treatment Site Gallbladder postop MOSAIQ RADIATION ONCOLOGY Course Number 1 MOSAIQ RADIATION ONCOLOGY Prescribed Fractional Dose 180 cGray MOSAIQ RADIATION ONCOLOGY Prescribed Total Dose 4,500 cGray MOSAIQ RADIATION ONCOLOGY Actual Fractions Delivered 19 MOSAIQ RADIATION ONCOLOGY Actual Session Delivered Dose 180 cGray MOSAIQ RADIATION ONCOLOGY Actual Total Dose 3,420 cGray MOSAIQ RADIATION ONCOLOGY Prescribed Technique 2 arc VMAT MOSAIQ RADIATION ONCOLOGY Elapsed Days 28 MOSAIQ RADIATION ONCOLOGY Start Date 08/05/2024 MOSAIQ RADIATION ONCOLOGY Last Date 09/02/2024 MOSAIQ RADIATION ONCOLOGY Prescribed Number of Fractions 25 MOSAIQ RADIATION ONCOLOGY 09/02/2024 10:2 7 AM EST Physician Radiation Oncology RADIATIO N ONCOLOGY ORDERABLES Performing Organization Address City/[facility]/ZIP Co de Phone Number MOSAIQ RADIATION ONCOLOGY * Rad Onc Msq Treatment Summary (08/31/2024 10:18 AM EST) Treatment Site Gallbladder postop MOSAIQ RADIATION ONCOLOGY Course Number 1 MOSAIQ RADIATION ONCOLOGY Prescribed Fractional Dose 180 cGray MOSAIQ RADIATION ONCOLOGY Prescribed Total Dose 4,500 cGray MOSAIQ RADIATION ONCOLOGY Actual Fractions Delivered 18 MOSAIQ RADIATION ONCOLOGY Actual Session Delivered Dose 180 cGray MOSAIQ RADIATION ONCOLOGY Actual Total Dose 3,240 cGray MOSAIQ RADIATION ONCOLOGY Prescribed Technique 2 arc VMAT MOSAIQ RADIATION ONCOLOGY Elapsed Days 26 MOSAIQ RADIATION ONCOLOGY Start Date 08/05/2024 MOSAIQ RADIATION ONCOLOGY Last Date 08/31/2024 MOSAIQ RADIATION ONCOLOGY Prescribed Number of Fractions 25 MOSAIQ RADIATION ONCOLOGY 08/31/2024 10:1 8 AM EST Physician Radiation Oncology RADIATIO N ONCOLOGY ORDERABLES MOSAIQ RADIATION ONCOLOGY * Rad Onc Msq Treatment Summary (08/30/2024 10:25 AM EST) Treatment Site Gallbladder postop MOSAIQ RADIATION ONCOLOGY Course Number 1 MOSAIQ RADIATION ONCOLOGY Prescribed Fractional Dose 180 cGray MOSAIQ RADIATION ONCOLOGY Prescribed Total Dose 4,500 cGray MOSAIQ RADIATION ONCOLOGY Actual Fractions Delivered 17 MOSAIQ RADIATION ONCOLOGY Actual Session Delivered Dose 180 cGray MOSAIQ RADIATION ONCOLOGY Actual Total Dose 3,060 cGray MOSAIQ RADIATION ONCOLOGY Prescribed Technique 2 arc VMAT MOSAIQ RADIATION ONCOLOGY Elapsed Days 25 MOSAIQ RADIATION ONCOLOGY Start Date 08/05/2024 MOSAIQ RADIATION ONCOLOGY Last Date 08/30/2024 MOSAIQ RADIATION ONCOLOGY Prescribed Number of Fractions 25 MOSAIQ RADIATION ONCOLOGY 08/30/2024 10:2 5 AM EST Physician Radiation Oncology RADIATIO N ONCOLOGY ORDERABLES MOSAIQ RADIATION ONCOLOGY * Rad Onc Msq Treatment Summary (08/27/2024 10:25 AM EST) Treatment Site Gallbladder postop MOSAIQ RADIATION ONCOLOGY Course Number 1 MOSAIQ RADIATION ONCOLOGY Prescribed Fractional Dose 180 cGray MOSAIQ RADIATION ONCOLOGY Prescribed Total Dose 4,500 cGray MOSAIQ RADIATION ONCOLOGY Actual Fractions Delivered 16 MOSAIQ RADIATION ONCOLOGY Actual Session Delivered Dose 180 cGray MOSAIQ RADIATION ONCOLOGY Actual Total Dose 2,880 cGray MOSAIQ RADIATION ONCOLOGY Prescribed Technique 2 arc VMAT MOSAIQ RADIATION ONCOLOGY Elapsed Days 22 MOSAIQ RADIATION ONCOLOGY Start Date 08/05/2024 MOSAIQ RADIATION ONCOLOGY Last Date 08/27/2024 MOSAIQ RADIATION ONCOLOGY Prescribed Number of Fractions 25 MOSAIQ RADIATION ONCOLOGY 08/27/2024 10:2 5 AM EST Physician Radiation Oncology RADIATIO N ONCOLOGY ORDERABLES MOSAIQ RADIATION ONCOLOGY * Rad Onc Msq Treatment Summary (08/26/2024 10:27 AM EST) Treatment Site Gallbladder postop MOSAIQ RADIATION ONCOLOGY Course Number 1 MOSAIQ RADIATION ONCOLOGY Prescribed Fractional Dose 180 cGray MOSAIQ RADIATION ONCOLOGY Prescribed Total Dose 4,500 cGray MOSAIQ RADIATION ONCOLOGY Actual Fractions Delivered 15 MOSAIQ RADIATION ONCOLOGY Actual Session Delivered Dose 180 cGray MOSAIQ RADIATION ONCOLOGY Actual Total Dose 2,700 cGray MOSAIQ RADIATION ONCOLOGY Prescribed Technique 2 arc VMAT MOSAIQ RADIATION ONCOLOGY Elapsed Days 21 MOSAIQ RADIATION ONCOLOGY Start Date 08/05/2024 MOSAIQ RADIATION ONCOLOGY Last Date 08/26/2024 MOSAIQ RADIATION ONCOLOGY Prescribed Number of Fractions 25 MOSAIQ RADIATION ONCOLOGY 08/26/2024 10:2 7 AM EST Physician Radiation Oncology RADIATIO N ONCOLOGY ORDERABLES MOSAIQ RADIATION ONCOLOGY * Rad Onc Msq Treatment Summary (08/24/2024 10:45 AM EST) Treatment Site Gallbladder postop MOSAIQ RADIATION ONCOLOGY Course Number 1 MOSAIQ RADIATION ONCOLOGY Prescribed Fractional Dose 180 cGray MOSAIQ RADIATION ONCOLOGY Prescribed Total Dose 4,500 cGray MOSAIQ RADIATION ONCOLOGY Actual Fractions Delivered 14 MOSAIQ RADIATION ONCOLOGY Actual Session Delivered Dose 180 cGray MOSAIQ RADIATION ONCOLOGY Actual Total Dose 2,520 cGray MOSAIQ RADIATION ONCOLOGY Prescribed Technique 2 arc VMAT MOSAIQ RADIATION ONCOLOGY Elapsed Days 19 MOSAIQ RADIATION ONCOLOGY Start Date 08/05/2024 MOSAIQ RADIATION ONCOLOGY Last Date 08/24/2024 MOSAIQ RADIATION ONCOLOGY Prescribed Number of Fractions 25 MOSAIQ RADIATION ONCOLOGY 08/24/2024 10:4 5 AM EST Physician Radiation Oncology RADIATIO N ONCOLOGY ORDERABLES MOSAIQ RADIATION ONCOLOGY * Rad Onc Msq Treatment Summary (08/23/2024 10:30 AM EST) Treatment Site Gallbladder postop MOSAIQ RADIATION ONCOLOGY Course Number 1 MOSAIQ RADIATION ONCOLOGY Prescribed Fractional Dose 180 cGray MOSAIQ RADIATION ONCOLOGY Prescribed Total Dose 4,500 cGray MOSAIQ RADIATION ONCOLOGY Actual Fractions Delivered 13 MOSAIQ RADIATION ONCOLOGY Actual Session Delivered Dose 180 cGray MOSAIQ RADIATION ONCOLOGY Actual Total Dose 2,340 cGray MOSAIQ RADIATION ONCOLOGY Prescribed Technique 2 arc VMAT MOSAIQ RADIATION ONCOLOGY Elapsed Days 18 MOSAIQ RADIATION ONCOLOGY Start Date 08/05/2024 MOSAIQ RADIATION ONCOLOGY Last Date 08/23/2024 MOSAIQ RADIATION ONCOLOGY Prescribed Number of Fractions 25 MOSAIQ RADIATION ONCOLOGY 08/23/2024 10:3 0 AM EST Physician Radiation Oncology RADIATIO N ONCOLOGY ORDERABLES MOSAIQ RADIATION ONCOLOGY * Rad Onc Msq Treatment Summary (08/20/2024 10:20 AM EST) Treatment Site Gallbladder postop MOSAIQ RADIATION ONCOLOGY Course Number 1 MOSAIQ RADIATION ONCOLOGY Prescribed Fractional Dose 180 cGray MOSAIQ RADIATION ONCOLOGY Prescribed Total Dose 4,500 cGray MOSAIQ RADIATION ONCOLOGY Actual Fractions Delivered 12 MOSAIQ RADIATION ONCOLOGY Actual Session Delivered Dose 180 cGray MOSAIQ RADIATION ONCOLOGY Actual Total Dose 2,160 cGray MOSAIQ RADIATION ONCOLOGY Prescribed Technique 2 arc VMAT MOSAIQ RADIATION ONCOLOGY Elapsed Days 15 MOSAIQ RADIATION ONCOLOGY Start Date 08/05/2024 MOSAIQ RADIATION ONCOLOGY Last Date 08/20/2024 MOSAIQ RADIATION ONCOLOGY Prescribed Number of Fractions 25 MOSAIQ RADIATION ONCOLOGY 08/20/2024 10:2 0 AM EST Physician Radiation Oncology RADIATIO N ONCOLOGY ORDERABLES MOSAIQ RADIATION ONCOLOGY * Rad Onc Msq Treatment Summary (08/19/2024 10:22 AM EST) Treatment Site Gallbladder postop MOSAIQ RADIATION ONCOLOGY Course Number 1 MOSAIQ RADIATION ONCOLOGY Prescribed Fractional Dose 180 cGray MOSAIQ RADIATION ONCOLOGY Prescribed Total Dose 4,500 cGray MOSAIQ RADIATION ONCOLOGY Actual Fractions Delivered 11 MOSAIQ RADIATION ONCOLOGY Actual Session Delivered Dose 180 cGray MOSAIQ RADIATION ONCOLOGY Actual Total Dose 1,980 cGray MOSAIQ RADIATION ONCOLOGY Prescribed Technique 2 arc VMAT MOSAIQ RADIATION ONCOLOGY Elapsed Days 14 MOSAIQ RADIATION ONCOLOGY Start Date 08/05/2024 MOSAIQ RADIATION ONCOLOGY Last Date 08/19/2024 MOSAIQ RADIATION ONCOLOGY Prescribed Number of Fractions 25 MOSAIQ RADIATION ONCOLOGY 08/19/2024 10:2 2 AM EST Physician Radiation Oncology RADIATIO N ONCOLOGY ORDERABLES MOSAIQ RADIATION ONCOLOGY * Rad Onc Msq Treatment Summary (08/18/2024 10:20 AM EST) Treatment Site Gallbladder postop MOSAIQ RADIATION ONCOLOGY Course Number 1 MOSAIQ RADIATION ONCOLOGY Prescribed Fractional Dose 180 cGray MOSAIQ RADIATION ONCOLOGY Prescribed Total Dose 4,500 cGray MOSAIQ RADIATION ONCOLOGY Actual Fractions Delivered 10 MOSAIQ RADIATION ONCOLOGY Actual Session Delivered Dose 180 cGray MOSAIQ RADIATION ONCOLOGY Actual Total Dose 1,800 cGray MOSAIQ RADIATION ONCOLOGY Prescribed Technique 2 arc VMAT MOSAIQ RADIATION ONCOLOGY Elapsed Days 13 MOSAIQ RADIATION ONCOLOGY Start Date 08/05/2024 MOSAIQ RADIATION ONCOLOGY Last Date 08/18/2024 MOSAIQ RADIATION ONCOLOGY Prescribed Number of Fractions 25 MOSAIQ RADIATION ONCOLOGY 08/18/2024 10:2 0 AM EST Physician Radiation Oncology RADIATIO N ONCOLOGY ORDERABLES MOSAIQ RADIATION ONCOLOGY * Rad Onc Msq Treatment Summary (08/17/2024 10:24 AM EST) Treatment Site Gallbladder postop MOSAIQ RADIATION ONCOLOGY Course Number 1 MOSAIQ RADIATION ONCOLOGY Prescribed Fractional Dose 180 cGray MOSAIQ RADIATION ONCOLOGY Prescribed Total Dose 4,500 cGray MOSAIQ RADIATION ONCOLOGY Actual Fractions Delivered 9 MOSAIQ RADIATION ONCOLOGY Actual Session Delivered Dose 180 cGray MOSAIQ RADIATION ONCOLOGY Actual Total Dose 1,620 cGray MOSAIQ RADIATION ONCOLOGY Prescribed Technique 2 arc VMAT MOSAIQ RADIATION ONCOLOGY Elapsed Days 12 MOSAIQ RADIATION ONCOLOGY Start Date 08/05/2024 MOSAIQ RADIATION ONCOLOGY Last Date 08/17/2024 MOSAIQ RADIATION ONCOLOGY Prescribed Number of Fractions 25 MOSAIQ RADIATION ONCOLOGY 08/17/2024 10:2 4 AM EST Physician Radiation Oncology RADIATIO N ONCOLOGY ORDERABLES Performing Organization Address City/[facility]/ZIP Co de Phone Number MOSAIQ RADIATION ONCOLOGY * Rad Onc Msq Treatment Summary (08/16/2024 10:27 AM EST) Treatment Site Gallbladder postop MOSAIQ RADIATION ONCOLOGY Course Number 1 MOSAIQ RADIATION ONCOLOGY Prescribed Fractional Dose 180 cGray MOSAIQ RADIATION ONCOLOGY Prescribed Total Dose 4,500 cGray MOSAIQ RADIATION ONCOLOGY Actual Fractions Delivered 8 MOSAIQ RADIATION ONCOLOGY Actual Session Delivered Dose 180 cGray MOSAIQ RADIATION ONCOLOGY Actual Total Dose 1,440 cGray MOSAIQ RADIATION ONCOLOGY Prescribed Technique 2 arc VMAT MOSAIQ RADIATION ONCOLOGY Elapsed Days 11 MOSAIQ RADIATION ONCOLOGY Start Date 08/05/2024 MOSAIQ RADIATION ONCOLOGY Last Date 08/16/2024 MOSAIQ RADIATION ONCOLOGY Prescribed Number of Fractions 25 MOSAIQ RADIATION ONCOLOGY 08/16/2024 10:2 7 AM EST Physician Radiation Oncology RADIATIO N ONCOLOGY ORDERABLES MOSAIQ RADIATION ONCOLOGY * Rad Onc Msq Treatment Summary (08/13/2024 10:16 AM EST) Treatment Site Gallbladder postop MOSAIQ RADIATION ONCOLOGY Course Number 1 MOSAIQ RADIATION ONCOLOGY Prescribed Fractional Dose 180 cGray MOSAIQ RADIATION ONCOLOGY Prescribed Total Dose 4,500 cGray MOSAIQ RADIATION ONCOLOGY Actual Fractions Delivered 7 MOSAIQ RADIATION ONCOLOGY Actual Session Delivered Dose 180 cGray MOSAIQ RADIATION ONCOLOGY Actual Total Dose 1,260 cGray MOSAIQ RADIATION ONCOLOGY Prescribed Technique 2 arc VMAT MOSAIQ RADIATION ONCOLOGY Elapsed Days 8 MOSAIQ RADIATION ONCOLOGY Start Date 08/05/2024 MOSAIQ RADIATION ONCOLOGY Last Date 08/13/2024 MOSAIQ RADIATION ONCOLOGY Prescribed Number of Fractions 25 MOSAIQ RADIATION ONCOLOGY 08/13/2024 10:1 6 AM EST Physician Radiation Oncology RADIATIO N ONCOLOGY ORDERABLES Performing Organization Address City/[facility]/ZIP Co de Phone Number MOSAIQ RADIATION ONCOLOGY * Rad Onc Msq Treatment Summary (08/12/2024 10:52 AM EST) Treatment Site Gallbladder postop MOSAIQ RADIATION ONCOLOGY Course Number 1 MOSAIQ RADIATION ONCOLOGY Prescribed Fractional Dose 180 cGray MOSAIQ RADIATION ONCOLOGY Prescribed Total Dose 4,500 cGray MOSAIQ RADIATION ONCOLOGY Actual Fractions Delivered 6 MOSAIQ RADIATION ONCOLOGY Actual Session Delivered Dose 180 cGray MOSAIQ RADIATION ONCOLOGY Actual Total Dose 1,080 cGray MOSAIQ RADIATION ONCOLOGY Prescribed Technique 2 arc VMAT MOSAIQ RADIATION ONCOLOGY Elapsed Days 7 MOSAIQ RADIATION ONCOLOGY Start Date 08/05/2024 MOSAIQ RADIATION ONCOLOGY Last Date 08/12/2024 MOSAIQ RADIATION ONCOLOGY Prescribed Number of Fractions 25 MOSAIQ RADIATION ONCOLOGY 08/12/2024 10:5 2 AM EST Physician Radiation Oncology RADIATIO N ONCOLOGY ORDERABLES MOSAIQ RADIATION ONCOLOGY * Rad Onc Msq Treatment Summary (08/11/2024 10:50 AM EST) Treatment Site Gallbladder postop MOSAIQ RADIATION ONCOLOGY Course Number 1 MOSAIQ RADIATION ONCOLOGY Prescribed Fractional Dose 180 cGray MOSAIQ RADIATION ONCOLOGY Prescribed Total Dose 4,500 cGray MOSAIQ RADIATION ONCOLOGY Actual Fractions Delivered 5 MOSAIQ RADIATION ONCOLOGY Actual Session Delivered Dose 180 cGray MOSAIQ RADIATION ONCOLOGY Actual Total Dose 900 cGray MOSAIQ RADIATION ONCOLOGY Prescribed Technique 2 arc VMAT MOSAIQ RADIATION ONCOLOGY Elapsed Days 6 MOSAIQ RADIATION ONCOLOGY Start Date 08/05/2024 MOSAIQ RADIATION ONCOLOGY Last Date 08/11/2024 MOSAIQ RADIATION ONCOLOGY Prescribed Number of Fractions 25 MOSAIQ RADIATION ONCOLOGY 08/11/2024 10:5 0 AM EST Physician Radiation Oncology RADIATIO N ONCOLOGY ORDERABLES MOSAIQ RADIATION ONCOLOGY * Rad Onc Msq Treatment Summary (08/10/2024 11:10 AM EST) Treatment Site Gallbladder postop MOSAIQ RADIATION ONCOLOGY Course Number 1 MOSAIQ RADIATION ONCOLOGY Prescribed Fractional Dose 180 cGray MOSAIQ RADIATION ONCOLOGY Prescribed Total Dose 4,500 cGray MOSAIQ RADIATION ONCOLOGY Actual Fractions Delivered 4 MOSAIQ RADIATION ONCOLOGY Actual Session Delivered Dose 180 cGray MOSAIQ RADIATION ONCOLOGY Actual Total Dose 720 cGray MOSAIQ RADIATION ONCOLOGY Prescribed Technique 2 arc VMAT MOSAIQ RADIATION ONCOLOGY Elapsed Days 5 MOSAIQ RADIATION ONCOLOGY Start Date 08/05/2024 MOSAIQ RADIATION ONCOLOGY Last Date 08/10/2024 MOSAIQ RADIATION ONCOLOGY Prescribed Number of Fractions 25 MOSAIQ RADIATION ONCOLOGY 08/10/2024 11:1 0 AM EST Physician Radiation Oncology RADIATIO N ONCOLOGY ORDERABLES MOSAIQ RADIATION ONCOLOGY * Rad Onc Msq Treatment Summary (08/09/2024 11:11 AM EST) Treatment Site Gallbladder postop MOSAIQ RADIATION ONCOLOGY Course Number 1 MOSAIQ RADIATION ONCOLOGY Prescribed Fractional Dose 180 cGray MOSAIQ RADIATION ONCOLOGY Prescribed Total Dose 4,500 cGray MOSAIQ RADIATION ONCOLOGY Actual Fractions Delivered 3 MOSAIQ RADIATION ONCOLOGY Actual Session Delivered Dose 180 cGray MOSAIQ RADIATION ONCOLOGY Actual Total Dose 540 cGray MOSAIQ RADIATION ONCOLOGY Prescribed Technique 2 arc VMAT MOSAIQ RADIATION ONCOLOGY Elapsed Days 4 MOSAIQ RADIATION ONCOLOGY Start Date 08/05/2024 MOSAIQ RADIATION ONCOLOGY Last Date 08/09/2024 MOSAIQ RADIATION ONCOLOGY Prescribed Number of Fractions 25 MOSAIQ RADIATION ONCOLOGY 08/09/2024 11:1 1 AM EST Physician Radiation Oncology RADIATIO N ONCOLOGY ORDERABLES MOSAIQ RADIATION ONCOLOGY * Rad Onc Msq Treatment Summary (08/06/2024 10:39 AM EST) Treatment Site Gallbladder postop MOSAIQ RADIATION ONCOLOGY Course Number 1 MOSAIQ RADIATION ONCOLOGY Prescribed Fractional Dose 180 cGray MOSAIQ RADIATION ONCOLOGY Prescribed Total Dose 4,500 cGray MOSAIQ RADIATION ONCOLOGY Actual Fractions Delivered 2 MOSAIQ RADIATION ONCOLOGY Actual Session Delivered Dose 180 cGray MOSAIQ RADIATION ONCOLOGY Actual Total Dose 360 cGray MOSAIQ RADIATION ONCOLOGY Prescribed Technique 2 arc VMAT MOSAIQ RADIATION ONCOLOGY Elapsed Days 1 MOSAIQ RADIATION ONCOLOGY Start Date 08/05/2024 MOSAIQ RADIATION ONCOLOGY Last Date 08/06/2024 MOSAIQ RADIATION ONCOLOGY Prescribed Number of Fractions 25 MOSAIQ RADIATION ONCOLOGY 08/06/2024 10:3 9 AM EST Physician Radiation Oncology RADINAIMA N ONCOLOGY ORDERABLES Performing Organization Address City/State/[facility] Co de Phone Number MOSAIQ RADIATION ONCOLOGY from Last 3 Months Care Teams Rim Technician Relationship Specialty Start Date End Date Adria Rubio MD [address] [place] [address] PCP - General Internal Medicine 08/04/24
--- OUTSIDE RECORDS SUMMARY | 2024-09-22 12:21 | XMS_ITS | Encounter Summary ---
Author Organization [facility] Address [address] [place] [address] Care Team Providers Care Special Agent Group Insurance Name Role Phone Adria Rubio MD Primary Care Provider [phone] Encounter Details Date Type Department Care Team (Latest Contact Info) Description 09/07/2024 10:03 AM EST - 09/07/2024 11:59 PM [facility] Hospital Encounter [facility] Radiation Oncology [address] [place] [address] Discharge Disposition: Home or Self Care Social [...] on file documented as of this encounter Medications at Time of Discharge [...] mouth 1 (one) time each day. multivitamin (eprulbvkiivv-ymbt-donnld ls) tablet Take 1 tablet by mouth [...] or Self Care documented in this encounter Plan of Treatment Upcoming Encounters Date Type Department Care Team (Late st Contact Info) Description 10/05/2024 10:30 AM EST Appointment [facility] Radiation Oncology [address] [facility] 2nd [place] [address] Megan Mcneill NP [address] [place] [address] [place] [phone] documented as of this encounter Procedures Procedure Name Priority Date/Time Associated Diagnosis Comments RAD ONC MSQ TREATMENT SUMMARY Routine 09/07/2024 10:45 AM EST documented in this encounter Results * Rad Onc Msq Treatment Summary (09/07/2024 [...] RADIATIO N ONCOLOGY ORDERABLES MOSAIQ RADIATION ONCOLOGY documented in this encounter Visit Diagnoses Not on filedocumented in this encounter Care Teams Special Agent Group Insurance Relationship Specialty Start Date End Date Adria Rubio MD [address] [place] [address] PCP - General Internal Medicine 08/04/24 documented as of this encounter
--- OUTSIDE RECORDS SUMMARY | 2024-09-22 12:21 | XMS_ITS | Encounter Summary ---
Author Organization [facility] Address [address] [place] [address] Care Team Providers Care Leather Cleaner Name Role Phone Adria Rubio MD Primary Care Provider [phone] Encounter Details Date Type Department Care Team (Latest Contact Info) Description 09/10/2024 10:05 AM EST - 09/10/2024 11:59 PM [facility] Hospital Encounter [facility] Radiation Oncology [address] [facility] 2nd [place] [address] Discharge Disposition: Home or Self [...] mouth 1 (one) time each day. multivitamin (hfolgcciwbkb-cewk-pctgkm ls) tablet Take 1 tablet by mouth [...] Info) Description 10/05/2024 10:30 AM EST Appointment [facility] Radiation Oncology [address] [facility] [address]nd [place] [address] Megan Mcneill NP [address] [place] [address] [place] [phone] documented as of this encounter Procedures Procedure Name Priority Date/Time Associated Diagnosis Comments RAD ONC MSQ TREATMENT SUMMARY Routine 09/10/2024 10:23 AM EST documented in this encounter Results [...] on filedocumented in this encounter Care Teams Leather Cleaner Relationship Specialty Start Date End Date Adria Rubio MD [address] [place] [address] PCP - General Internal Medicine 08/04/24 documented as of this encounter
--- OUTSIDE RECORDS SUMMARY | 2024-09-22 12:21 | XMS_ITS | Encounter Summary ---
Author Organization [facility] Address [address] [place] [address] Care Team Providers Care Agile Test Lead Name Role Phone Adria Rubio MD Primary Care Provider [phone] Encounter Details Date Type Department Care Team (Latest Contact Info) Description 09/09/2024 10:04 AM EST - 09/09/2024 11:59 PM [facility] Hospital Encounter [facility] Radiation Oncology [address] [place] [address] Discharge Disposition: Home or Self [...] mouth 1 (one) time each day. multivitamin (wiearughomzg-ldph-okvctb ls) tablet Take 1 tablet by mouth [...] Info) Description 10/05/2024 10:30 AM EST Appointment [facility] Radiation Oncology [address] [facility] 2nd [place] [address] Megan Mcneill NP [address] [place] [address] [place] [phone] documented as of this encounter Procedures Procedure Name Priority Date/Time Associated Diagnosis Comments RAD ONC MSQ TREATMENT SUMMARY Routine 09/09/2024 10:28 AM EST documented in this encounter Results * Rad Onc Msq Treatment Summary (09/09/2024 [...] on filedocumented in this encounter Care Teams Agile Test Lead Relationship Specialty Start Date End Date Adria Rubio MD [address] [place] [address] PCP - General Internal Medicine 08/04/24 documented as of this encounter
--- OUTSIDE RECORDS SUMMARY | 2024-09-22 12:21 | XMS_ITS | Encounter Summary ---
Author Organization [facility] Address [address] [place] [address] Care Team Providers Care Information Security Analyst Name Role Phone Adria Rubio MD Primary Care Provider [phone] Encounter Details Date Type Department Care Team (Latest Contact Info) Description 09/06/2024 9:56 AM EST - 09/06/2024 11:59 PM [facility] Hospital Encounter [facility] Radiation Oncology [address] [place] [address] Discharge Disposition: Home or Self [...] mouth 1 (one) time each day. multivitamin (iourhdwnyvgb-sfjc-utxjcs ls) tablet Take 1 tablet by mouth [...] Info) Description 10/05/2024 10:30 AM EST Appointment [facility] Radiation Oncology [address] [facility] 2nd [place] [address] Megan Mcneill NP [address] [place] [address] [place] [phone] documented as of this encounter Procedures Procedure Name Priority Date/Time Associated Diagnosis Comments RAD ONC MSQ TREATMENT SUMMARY Routine 09/06/2024 10:21 AM EST documented in this encounter Results * Rad Onc Msq Treatment Summary (09/06/2024 [...] on filedocumented in this encounter Care Teams Information Security Analyst Relationship Specialty Start Date End Date Adria Rubio MD [address] [place] [address] PCP - General Internal Medicine 08/04/24 documented as of this encounter
--- OUTSIDE RECORDS SUMMARY | 2024-09-22 12:21 | XMS_ITS | Encounter Summary ---
Author Organization [facility] Address [address] [place] [address] Care Team Providers Care Sand Operator Name Role Phone Adria Rubio MD Primary Care Provider [phone] Encounter Details Date Type Department Care Team (Latest Contact Info) Description 09/08/2024 10:05 AM EST - 09/08/2024 11:59 PM [facility] Hospital Encounter [facility] Radiation Oncology [address] [place] [address] Discharge Disposition: Home or Self [...] mouth 1 (one) time each day. multivitamin (yezuuitydbdu-xyei-nvvwhq ls) tablet Take 1 tablet by mouth [...] Info) Description 10/05/2024 10:30 AM EST Appointment [facility] Radiation Oncology 271 [facility] 2nd [place] [address] Megan Mcneill NP [address] [place] [address] [place] [phone] documented as of this encounter Procedures Procedure Name Priority Date/Time Associated Diagnosis Comments RAD ONC MSQ TREATMENT SUMMARY Routine 09/08/2024 10:22 AM EST documented in this encounter Results * Rad Onc Msq Treatment Summary (09/08/2024 [...] on filedocumented in this encounter Care Teams Sand Operator Relationship Specialty Start Date End Date Adria Rubio MD [address] [place] [address] PCP - General Internal Medicine 08/04/24 documented as of this encounter
--- OUTSIDE RECORDS SUMMARY | 2024-09-22 12:22 | XMS_ITS | Encounter Summary ---
Author Organization [facility] Address [address] [place] [address] Care Team Providers Care Mechanical Design Drafter Name Role Phone Adria Rubio MD Primary Care Provider [phone] Encounter Details Date Type Department Care Team (Latest Contact Info) Description 08/23/2024 10:11 AM EST - 08/23/2024 11:59 PM [facility] Hospital Encounter [facility] Radiation Oncology [address] [place] [address] Discharge Disposition: Home or Self [...] mouth 1 (one) time each day. multivitamin (kpnxihhaukws-niit-sddyil ls) tablet Take 1 tablet by mouth [...] Info) Description 10/05/2024 10:30 AM EST Appointment [facility] Radiation Oncology 271 [facility] 2nd [place] [address] Megan Mcneill NP [address] [place] [address] [place] [phone] documented as of this encounter Procedures Procedure Name Priority Date/Time Associated Diagnosis Comments RAD ONC MSQ TREATMENT SUMMARY Routine 08/23/2024 10:30 AM EST documented in this encounter Results * Rad Onc Msq Treatment Summary (08/23/2024 [...] on filedocumented in this encounter Care Teams Mechanical Design Drafter Relationship Specialty Start Date End Date Adria Rubio MD [address] [place] [address] PCP - General Internal Medicine 08/04/24 documented as of this encounter
--- OUTSIDE RECORDS SUMMARY | 2024-09-22 12:22 | XMS_ITS | Encounter Summary ---
Author Organization [facility] Address [address] [place] [address] Care Team Providers Care Engineering Operator Name Role Phone Adria Rubio MD Primary Care Provider [phone] Reason for Visit * Reason Comments OTV Encounter Details Date Type Department Care Team (Latest Contact Info) Description 08/30/2024 10:20 AM EST - 08/30/2024 11:59 PM EST Hospital Encounter [facility] Radiation Oncology [address] [phone] Amadou Soliz MD [address] [place] [address] 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CMS/HCC) (Primary Dx) Discharge Disposition: [...] - Inhaled Oxygen Concentration - - Weight 77.1 kg (170 lb) 08/30/2024 10:31 AM EST Height - - Body Mass Index 31.09 07/07/2024 8:40 AM EST documented in this [...] mouth 1 (one) time each day. multivitamin (lxzwlvnnnpvw-nnii-gzeegg ls) tablet Take 1 tablet by mouth [...] documented in this encounter Progress Notes * Maricruz Muhammad RN - 08/30/2024 10:20 AM EST Accompanied by: none Subjective: Pt reports she felt some pulling/pain like pinching like needles sensation in her abd after radiation this has not changed. She also reports occ nausea but no vomiting she will sometimes use nausea medication. Seeing Dr. Doan 08/27/24 she saw her. Did get labs done today. Pt reports increased GERD, now better. I am having pain in my abdomin on scale 7 this comes and goes. Pt also informed me that she is having pain in my left leg and is having an ultra sound and she is having a ultra sound. I have pain from my left buttock down to my knee. Dr. Soliz present and discussed this with pt that is could be sciatica. * Amadou Soliz MD - 08/30/2024 10:20 AM EST Radiation Oncology On Treatment Visit Patient Name: Susana Sanchez Attending Provider: Amadou Soliz MD Encounter Date: 08/30/2024 DIAGNOSIS: 1. 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CMS/HCC) 01/14/2024- ([facility]) total cholecystectomy and inclusion of surrounding tissue, abdominal lymphadenectomy including celiac gastric portal. Pancreatic by Dr. David operative findings described gallbladder adherent to the liver and the distal fundus far from the hilum. Partial resection of segment 5 was performed en bloc with the gallbladder. Apr - Jun 2024 gemcitabine [address] capecitabine with Dr. Doan at [facility] STAGE: Cancer Staging 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CMS/HCC) Staging form: Gallbladder, AJCC 8th Edition - Pathologic: Stage IIIB (pT2b, pN1, cM0) - Signed by Elba Krueger MD on 07/07/2024 Interval/Dose History: Radiation Therapy: Abdomen Treatment Period Technique Fraction Dose Fractions Total Dose Course 1 08/05/2024-08/30/2024 (days elapsed: ) Gallbladder postop 08/05/2024-08/30/2024 2 arc VMAT 180 / 180 cGy 3060 / 4,500 cGy TOTAL PLANNED DOSE: 4500 CONCURRENT THERAPY: Xeloda with Dr. Doan Accompanied by: self Subjective: Pt reports she felt some pulling/pain like pinching like needles sensation in her abd after radiation this has not changed. She also reports occ nausea but no vomiting she will sometimes use nausea medication. Seeing Dr. Doan 08/27/24 she saw her. Did get labs done today. Pt reports increased GERD, now better. I am having pain in my abdomin on scale 7 this comes and goes. Pt also informed me that she is having pain in my left leg and is having an ultra sound and she is having a ultra sound. I have pain from my left buttock down to my knee. Dr. Soliz present and discussed this with pt that is could be sciatica. Physical Exam: There were no vitals filed for this visit. .FLOWAMB[14 General: appears well, no apparent distress; awake and alert Assessment/Plan: She is having some of the expected radiation side effects. Continue radiation as scheduled. I have reviewed set-up and CBCT. Pulling sensation in the abdomen is likely postoperative adhesion. Advised massage and Tylenol. She is taking omeprazole for her GERD. documented in this encounter Plan of Treatment Upcoming Encounters Date Type Department Care Team (Late st Contact Info) Description 10/05/2024 10:30 AM EST Appointment [facility] Radiation Oncology 271 [facility] 2nd [place] [phone] Megan Mcneill NP [address] [place] [address] [place] [phone] documented as of this encounter Visit Diagnoses Diagnosis 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CMS/HCC)- Primary Malignant neoplasm of gallbladder documented in this encounter Care Teams Engineering Operator Relationship Specialty Start Date End Date Adria Rubio MD [address] [place] [phone] PCP - General Internal Medicine 08/04/24 documented as of this encounter
--- OUTSIDE RECORDS SUMMARY | 2024-09-22 12:22 | XMS_ITS | Encounter Summary ---
Author Organization [facility] Address [address] [place] [address] Care Team Providers Care Repair Tech Name Role Phone Adria Rubio MD Primary Care Provider [phone] Encounter Details Date Type Department Care Team (Latest Contact Info) Description 08/31/2024 10:06 AM EST - 08/31/2024 11:59 PM [facility] Hospital Encounter [facility] Radiation Oncology [address] [place] [address] Discharge Disposition: Home or Self [...] mouth 1 (one) time each day. multivitamin (zvaammewrfjt-bjqn-gtbzso ls) tablet Take 1 tablet by mouth [...] Appointment [facility] Radiation Oncology 271 [facility] 2nd [place] [address] Megan Mcneill NP [address] [place] [address] [place] [phone] documented as of this encounter Procedures Procedure Name Priority Date/Time Associated Diagnosis Comments RAD ONC MSQ TREATMENT SUMMARY Routine 08/31/2024 10:18 AM EST documented in this encounter Results * Rad Onc Msq Treatment Summary (08/31/2024 [...] on filedocumented in this encounter Care Teams Repair Tech Relationship Specialty Start Date End Date Adria Rubio MD [address] [place] [address] PCP - General Internal Medicine 08/04/24 documented as of this encounter
--- OUTSIDE RECORDS SUMMARY | 2024-09-22 12:22 | XMS_ITS | Encounter Summary ---
Author Organization [facility] Address [address] [place] [address] Care Team Providers Care Director Mobile Name Role Phone Adrai Rubio MD Primary Care Provider [phone] Encounter Details Date Type Department Care Team (Latest Contact Info) Description 09/03/2024 10:07 AM EST - 09/03/2024 11:59 PM [email or web address] Hospital Encounter [facility] Radiation Oncology [address] [place] [address] Discharge Disposition: Home or Self [...] mouth 1 (one) time each day. multivitamin (qyvwchfjeudf-vbek-smlcwf ls) tablet Take 1 tablet by mouth [...] Info) Description 10/05/2024 10:30 AM EST Appointment [facility] Radiation Oncology 271 [facility] 2nd [place] [address] Megan Mcneill NP [address] [place] [address] [place] [phone] documented as of this encounter Procedures Procedure Name Priority Date/Time Associated Diagnosis Comments RAD ONC MSQ TREATMENT SUMMARY Routine 09/03/2024 10:26 AM EST documented in this encounter Results * Rad Onc Msq Treatment Summary (09/03/2024 [...] on filedocumented in this encounter Care Teams Director Mobile Relationship Specialty Start Date End Date Adria Rubio MD [address] [place] [address] PCP - General Internal Medicine 08/04/24 documented as of this encounter
--- OUTSIDE RECORDS SUMMARY | 2024-09-22 12:22 | XMS_ITS | Encounter Summary ---
Author Organization [facility] Address [address] [place] [address] Care Team Providers Care Real Estate Economist Name Role Phone Adria Rubio MD Primary Care Provider [phone] Encounter Details Date Type Department Care Team (Latest Contact Info) Description 09/02/2024 9:49 AM EST - 09/02/2024 11:59 PM [facility] Hospital Encounter [facility] Radiation Oncology [address] [place] [address] Discharge Disposition: Home or Self [...] mouth 1 (one) time each day. multivitamin (eqfigdcjdeqn-fwmx-vnmioh ls) tablet Take 1 tablet by mouth [...] Info) Description 10/05/2024 10:30 AM EST Appointment [facility] Radiation Oncology 271 [facility] 2nd [place] [address] Megan Mcneill NP [address] [place] [address] [place] [phone] documented as of this encounter Procedures Procedure Name Priority Date/Time Associated Diagnosis Comments RAD ONC MSQ TREATMENT SUMMARY Routine 09/02/2024 10:27 AM EST documented in this encounter Results * Rad Onc Msq Treatment Summary (09/02/2024 [...] on filedocumented in this encounter Care Teams Real Estate Economist Relationship Specialty Start Date End Date Adria Rubio MD [address] [place] [address] PCP - General Internal Medicine 08/04/24 documented as of this encounter
--- OUTSIDE RECORDS SUMMARY | 2024-09-22 12:22 | XMS_ITS | Encounter Summary ---
Author Organization [facility] Address [address] [place] [address] Care Team Providers Care Spanish Professor Name Role Phone Adria Rubio MD Primary Care Provider [phone] Encounter Details Date Type Department Care Team (Latest Contact Info) Description 08/26/2024 9:59 AM EST - 08/26/2024 11:59 PM [facility] Hospital Encounter [facility] Radiation Oncology [address] [place] [address] Discharge Disposition: Home or Self [...] mouth 1 (one) time each day. multivitamin (pmjvzsmapmhd-ebeb-xwmwak ls) tablet Take 1 tablet by mouth [...] Info) Description 10/05/2024 10:30 AM EST Appointment [facility] Radiation Oncology 271 [facility] 2nd [place] [address] Megan Mcneill NP [address] [place] [address] [place] [phone] documented as of this encounter Procedures Procedure Name Priority Date/Time Associated Diagnosis Comments RAD ONC MSQ TREATMENT SUMMARY Routine 08/26/2024 10:27 AM EST documented in this encounter Results * Rad Onc Msq Treatment Summary (08/26/2024 [...] on filedocumented in this encounter Care Teams Spanish Professor Relationship Specialty Start Date End Date Adria Rubio MD [address] [place] [address] PCP - General Internal Medicine 08/04/24 documented as of this encounter
--- OUTSIDE RECORDS SUMMARY | 2024-09-22 12:22 | XMS_ITS | Encounter Summary ---
Author Organization [facility] Address [address] [place] [address] Care Team Providers Care Insurance Claims Supervisor Name Role Phone Adria Rubio MD Primary Care Provider [phone] Encounter Details Date Type Department Care Team (Latest Contact Info) Description 08/24/2024 10:00 AM EST - 08/24/2024 11:59 PM [facility] Hospital Encounter [facility] Radiation Oncology 271 [facility] 2nd [place] [address] Discharge Disposition: Home or Self [...] mouth 1 (one) time each day. multivitamin (csdtgnerreyd-lcjn-xhilss ls) tablet Take 1 tablet by mouth [...] Info) Description 10/05/2024 10:30 AM EST Appointment [facility] Radiation Oncology 271 [facility] 2nd [place] [address] Megan Mcneill NP [address] [place] [address] [place] [phone] documented as of this encounter Procedures Procedure Name Priority Date/Time Associated Diagnosis Comments RAD ONC MSQ TREATMENT SUMMARY Routine 08/24/2024 10:45 AM EST documented in this encounter Results * Rad Onc Msq Treatment Summary (08/24/2024 [...] on filedocumented in this encounter Care Teams Insurance Claims Supervisor Relationship Specialty Start Date End Date Adria Rubio MD [address] [place] [address] PCP - General Internal Medicine 08/04/24 documented as of this encounter
--- OUTSIDE RECORDS SUMMARY | 2024-09-22 12:22 | XMS_ITS | Encounter Summary ---
Author Organization [facility] Address [address] [place] [address] Care Team Providers Care Industrial Commercial Groundskeeper Name Role Phone Adria Rubio MD Primary Care Provider [phone] Encounter Details Date Type Department Care Team (Latest Contact Info) Description 08/27/2024 10:09 AM EST - 08/27/2024 11:59 PM [facility] Hospital Encounter [facility] Radiation Oncology [address] [place] [address] Discharge Disposition: Home or Self [...] mouth 1 (one) time each day. multivitamin (unrigsgdwyyy-ngfg-gxbwrz ls) tablet Take 1 tablet by mouth [...] Info) Description 10/05/2024 10:30 AM EST Appointment [facility] Radiation Oncology 271 [facility] 2nd [place] [address] Megan Mcneill NP [address] [place] [address] [place] [phone] documented as of this encounter Procedures Procedure Name Priority Date/Time Associated Diagnosis Comments RAD ONC MSQ TREATMENT SUMMARY Routine 08/27/2024 10:25 AM EST documented in this encounter Results * Rad Onc Msq Treatment Summary (08/27/2024 [...] on filedocumented in this encounter Care Teams Industrial Commercial Groundskeeper Relationship Specialty Start Date End Date Adria Rubio MD [address] [place] [address] PCP - General Internal Medicine 08/04/24 documented as of this encounter
--- OUTSIDE RECORDS SUMMARY | 2024-09-22 12:22 | XMS_ITS | Encounter Summary ---
Author Organization [facility] Address [address] [place] [address] Care Team Providers Care Infrastructure Developer Name Role Phone Adria Rubio MD Primary Care Provider [phone] Encounter Details Date Type Department Care Team (Latest Contact Info) Description 08/30/2024 9:36 AM EST - 08/30/2024 11:59 PM [facility] Hospital Encounter [facility] Radiation Oncology 271 [facility] 2nd [place] [address] Discharge Disposition: Home or Self [...] mouth 1 (one) time each day. multivitamin (lrbblunwwajz-blkb-cupkpv ls) tablet Take 1 tablet by mouth [...] Info) Description 10/05/2024 10:30 AM EST Appointment [facility] Radiation Oncology 271 [facility] 2nd [place] [address] Megan Mcneill NP [address] [place] [address] [place] [phone] documented as of this encounter Procedures Procedure Name Priority Date/Time Associated Diagnosis Comments RAD ONC MSQ TREATMENT SUMMARY Routine 08/30/2024 10:25 AM EST documented in this encounter Results * Rad Onc Msq Treatment Summary (08/30/2024 [...] on filedocumented in this encounter Care Teams Infrastructure Developer Relationship Specialty Start Date End Date Adria Rubio MD [address] [place] [address] PCP - General Internal Medicine 08/04/24 documented as of this encounter
--- OUTSIDE RECORDS SUMMARY | 2024-09-22 12:22 | XMS_ITS | Clinical Summary ---
Author Organization [facility], Address [address] [place] [address] [place] [address] Phone Care Team Providers Care Data Entry Technician Name Role Phone OrtizAlbert martin Primary Care Provider [phone] Allergies Active Allergy Reactions Criticality Noted Date Comments Penicillins Anaphylaxis High 01/01/2021 Streptomycin Anaphylaxis High 01/01/2021 Medications alendronate (FOSAMAX) 70 MG tablet Take 70 mg by mouth every 7 (seven) days Take in the morning with a full glass of water, on an empty stomach, and do not take anything else by mouth or lie down for the next 30 min. Active Cholecalciferol (Vitamin D-3) 25 MCG (1000 UT) capsule Take by mouth Acti ve furosemide (LASIX) 20 MG tablet Take 20 mg by mouth 2 (two) times a day Active gabapentin (NEURONTIN) 300 MG capsule Take 300 mg by mouth 3 (three) times a day Active omeprazole (PriLOSEC) [address] capsule Take 20 mg by mouth 1 (one) time each day Do not crush or chew. Active tamoxifen (NOLVADEX) 20 MG chemo tablet Take by mouth 1 (one) time each day Swallow whole; do not split, chew, or crush. Take with water or any other nonalcoholic drink with or without food at around the same time(s) every day. Active cyclobenzaprine (FLEXERIL) 5 MG tabletIndicatio ns:Contusion of rib <Initial> Take 1 tablet (5 mg total) by mouth 3 (three) times a day if needed for muscle spasms for up to 10 days 30 tablet Active Active Problems Problem Noted Date Diagnosed Date Single acquired kidney cyst 01/02/2021 Rib pain 01/02/2021 Personal history of breast cancer 10/02/2016 Overview (01/02/2021): Left Social History Tobacco Use Types Packs/Day Years Used Date Smoking Tobacco: Never Smokeless Tobacco: Never Alcohol Use Standard Drinks/Week Comments Never 0 (1 standard drink = 0.6 oz pur e alcohol) Comments Unknown Sex and Gender Information Value Date Recorded Sex Assigned at Not on file Legal Sex Female 3:10 PM EDT Gender Identity Not on file Sexual Orientation Not on file Last Filed Vital Signs Vital Sign Reading Time Taken Comments Blood Pressure 122/74 01/02/2021 12:37 PM EDT Pulse 68 01/02/2021 12:37 PM EDT Temperature - - Respiratory Rate - - Oxygen Saturation - - Inhaled Oxygen Concentration - - Weight - - Height - - Body Mass Index - - Plan of Treatment Health Maintenance Due Date Last Done Comments Breast Cancer Screening 1961 Colorectal Cancer Screening: Annual FOBT 2010 Colorectal Cancer Screening: Colonoscopy 2010 Colorectal Cancer Screening: Sigmoidoscopy 2010 Influenza Vaccine (#1) 2024 Hepatitis B Vaccine Aged Out No longe r eligible based on patient's age to complete this topic Pneumococcal Vaccine: Pediat rics (0 to 5 Years) and At-Risk Patients (6 to 64 Years) Aged Out No longer eligible b ased on patient's age to complete this topic [place] [address] Care Teams Data Entry Technician Relationship Specialty Start Date End Date Albert Ortiz DO [address] [place] [address] PCP - General Nephrology 01/10/21
[2024-09-22] MEDS: iohexoL 350 MG/ML 100 ML INFUS..BTL 85 ML IV (13:30)
[2024-09-22] MEDS: Barium Sulfate Oral (Mocha) 450 ML ORAL.SUSP 900 ML PO (13:33)
== END 2024-09-22 10:54 | disposition home or self-care (01) ==
LOC: HO.CT 10:53
PROVIDERS: PCP Internal Medicine; Visit Provider Internal Medicine Medical Oncology
DX: C23 Malignant neoplasm of gallbladder (principal)
CPT/HCPCS: 74177; Q9967

== ENCOUNTER → 2024-09-22 10:55 | Outpatient (BNV) | payer OTHER, SELFPAY | PROVIDERS: PCP Internal Medicine; Visit Provider Radiology Diagnostic Radiology | DX: C23 Malignant neoplasm of gallbladder (principal) | CPT/HCPCS: 74177 ==

== ENCOUNTER 2024-10-15 07:39 | Outpatient (AMB) | payer OTHER, SELFPAY ==
--- OUTSIDE RECORDS SUMMARY | 2024-10-15 07:41 | XMS_ITS | Clinical Summary ---
Author Organization [facility], Address [address] [place] [address] [place] [address] Phone Care Team Providers Care Neon Sign Worker Name Role Phone OrtizAlbert martin Primary Care Provider [phone] Allergies Active Allergy Reactions Criticality Noted Date [...] age to complete this topic Insurance [employer] Care Teams Neon Sign Worker Relationship Specialty Start Date End Date Albert Ortiz DO [address] [place] [address] PCP - General Nephrology 01/10/21
--- OUTSIDE RECORDS SUMMARY | 2024-10-15 07:41 | XMS_ITS | Encounter Summary ---
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) Procedures PET CT Skull to Mid Thigh Subsequent Elliott Doan MD [address] ATTN: HEMATOLOGY/[place] [address] Phone: tel: fax: [facility] Referral ID Status Reason Start Date Expiration Date Visits Re quested Visits Authorized [id number] Closed 09/28/2024 09/28/2025 1 1 Reason for Visit * Imaging (Routine) - Closed Specialty Diagnoses / Procedures Referred By [place] Referred To Contact Radiology Diagnoses 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) Procedures PET CT Skull to Mid Thigh Subsequent Elliott Doan MD [address] ATTN: HEMATOLOGY/[place] [address] Phone: tel: fax: [facility] Referral ID Status Reason Start Date Expiration Date Visits Re quested Visits Authorized [id number] Closed 09/28/2024 09/28/2025 1 1 Encounter Details Date Type Department Care Team (Latest Contact Info) Description 09/29/2024 8:48 AM EST - 09/29/2024 11:59 PM EST Hospital Encounter [facility] PET Scan [address] [place] [address] 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) Discharge Disposition: Home or Self Care Social History Tobacco Use Types Packs/Day Years Used Date Smoking Tobacco: Never Smokeless Tobacco: Never Alcohol Use Standard Drinks/Week Comments Never 0 (1 standard drink = 0.6 oz pur e alcohol) Comments Unknown Sex and Gender Information Value Date Recorded Sex Assigned at Not on file Legal Sex Female 4:44 PM EST Gender Identity Not on file Sexual Orientation Not on file Occupation Industry Job Start Date Job End Date Disabled Not on file Not on file Not on file documented as of this encounter Medications at Time of Discharge capecitabine (XELODA) 500 mg tablet Take 2 [...] by mouth 2 (two) times a day. Fish OiL 1,000 (120-180) mg capsule take 1 capsule by mouth once daily 12/09/2023 gabapentin (NEURONTIN) 300 mg capsule Take 3 capsules (900 mg total) by mouth 1 (one) time each day. multivitamin (xqiymjppoaoy-pynm-g inerals) tablet Take 1 tablet by mouth daily. omeprazole (PriLOSEC) [address] capsule Take 1 capsule (20 mg total) by mouth 2 (two) times a day. ondansetron (ZOFRAN) 8 mg tablet Take 1 tablet (8 mg total) by mouth every 8 (eight) hours if needed for nausea or vomiting. ondansetron ODT (ZOFRAN-ODT) 8 mg disintegrating tablet DISSOLVE 1 TABLET IN MOUTH EVERY 8 HOURS 08/18/2024 sucralfate (CARAFATE) 1 gram tablet Take 1 tablet (1 g total) by mouth 2 (two) times a day. 05/20/2024 TylenoL 325 mg tablet Take 2 tablets (650 mg total) by mouth every 6 hours as needed. 01/18/2024 documented as of this encounter Discharge Disposition Disposition Code Departure Means Destination Home or Self Care documented in this encounter Plan of Treatment Upcoming Encounters Date Type Department Care Team (Late st Contact Info) Description 11/26/2024 9:30 AM EDT Appointment [facility] Radiation Oncology [address] [place] [address] Megan Mnceill NP [address] [place] [address] [place] [phone] documented as of this encounter Procedures Procedure Name Priority Date/Time Associated Diagnosis Comments PET CT SKULL TO MID THIGH SUBSEQUENT Routine 09/29/2024 10:56 AM EST 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 -------- FINAL REPORT -------- Dictated By: Dez Wilson Dictated Date: 09/29/2024 14:11 ET Assigned Physician: Dez Wilson Reviewed and Electronically Signed By: Dez Wilson Signed Date: 09/29/2024 14:21 ET Workstation ID: [id number] Transcribed By: Self Edit Transcribed Date: 09/29/2024 14:12 ET Narrative 09/29/2024 2:21 PM EST INDICATION: Gallbladder carcinoma, subsequent treatment strategy Prior relevant studies: PET/CT from November 29, 2016 Radiopharmaceutical: 13.5 mCi of F-18 FDG IV. Blood glucose: 107 mg/dl. PROCEDURE: Routine body FDG PET-CT imaging was performed from the skull base to the proximal/mid thighs and reconstructed in axial, coronal, and sagittal planes at the computer workstation with fused data from both the PET imaging study and attenuation correction CT. The CT portion of the examination was done strictly for attenuation correction and is not a true diagnostic CT examination. CTDI: 9.98 mGy FINDINGS: HEAD AND NECK: No abnormal FDG activity. THORAX: Metabolic active mediastinal and hilar nodes with FDG max up to 4.5 within the right hilum. No FDG avid pulmonary nodules. ABDOMEN/PELVIS: FDG avid rounded lesion within the right lobe liver with central necrosis with FDG max up to 11.1. Small peripheral FDG avid lesion noted posterior to the larger lesion with FDG max of 4.3. Small FDG avid left-sided para-aortic lymph node along the mid infrarenal aorta with FDG max of 3.8. MUSCULOSKELETAL: No abnormal FDG activity. Procedure Note Dez Wilson MD - 09/29/2024 INDICATION: Gallbladder carcinoma, subsequent treatment strategy Prior relevant studies: PET/CT from November 29, 2016 Radiopharmaceutical: 13.5 mCi of F-18 FDG IV. Blood glucose: 107 mg/dl. PROCEDURE: Routine body FDG PET-CT imaging was performed from the skullbase to the proximal/mid thighs and reconstructed in axial, coronal, andsagittal planes at the computer workstation with fused data from both thePET imaging study and attenuation correction CT. The CT portion of theexamination was done strictly for attenuation correction and is not a truediagnostic CT examination. CTDI: 9.98 mGy FINDINGS: HEAD AND NECK: No abnormal FDG activity. THORAX: Metabolic active mediastinal and hilar nodes with FDG max up to4.5 within the right hilum. No FDG avid pulmonary nodules. ABDOMEN/PELVIS: FDG avid rounded lesion within the right lobe liver withcentral necrosis with FDG max up to 11.1. Small peripheral FDG avid lesion noted posterior to the larger lesion withFDG max of 4.3. Small FDG avid left-sided para-aortic lymph node along the mid infrarenalaorta with FDG max of 3.8. MUSCULOSKELETAL: No abnormal FDG activity. IMPRESSION: Metabolically active hepatic lesions as well as thoracic and abdominalnodes are new from November 15 and suspicious for metastatic disease. 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) documented in this encounter Administered Medications Inactive Administered Medications - up to 3 most recent administrations Medication Order MAR Action Action Date Dose Rate Site F-18 FDG pet diag radio-isotope injection 13.5 millicurie 13.5 millicurie, intravenous, Once in imaging, Starting on Fri09/29/24 at 1000, For 1 dose Given 09/29/2024 9:50 AM EST 13.5 millicuries Right Hand documented in this encounter Orders Medications Ordered That Patricio ht Not Have Been Administered Count Last Ordered Date First Ordered Date F-18 FDG pet diag radio-isot ope injection 13.5 millicurie 1 09/29/2024 documented in this encounter Care Teams Heating Equipment Installer Relationship Specialty Start Date End Date Adria Rubio MD [address] [place] [address] PCP - General Internal Medicine 08/04/24 documented as of this encounter
--- OUTSIDE RECORDS SUMMARY | 2024-10-15 07:41 | XMS_ITS ---
Author Organization [facility] Address [address] [place] [address] Care Team Providers Care Clam Shovel Operator Name Role Phone Adria Rubio MD Primary Care Provider [phone] Active Problems Problem Noted Date Diagnosed Date Rotator cuff tendonitis 09/30/2024 Sacroiliitis 09/30/2024 Segmental and somatic dysfunction of sacral tiki on 09/30/2024 Chronic pain of right hip 09/30/2024 Greater trochanteric bursitis 09/30/2024 Lumbar spondylosis 06/30/2024 Back pain 06/30/2024 Malignant neoplasm [...] Fraction Dose Given/Prescribed Total Dose Given/Prescribed Technique Gallbladde r postop 5 36 25 of 25 180 cGy / 180 cGy 4,500 cGy / 4, 500 cGy 2 arc VMAT
--- OUTSIDE RECORDS SUMMARY | 2024-10-15 07:41 | XMS_ITS | Clinical Summary ---
Author Organization [facility] Address [address] [place] [address] Care Team Providers Care Car Dumper Operator Helper Name Role Phone Adria Rubio MD Primary Care Provider [phone] Allergies Active Allergy Reactions Criticality Noted Date Comments Penicillins Swelling,Anaphylaxis High 01/01/2021 Streptomycin Swelling,Anaphylaxis High 01/01/2021 Medications cholecalciferol (VITAMIN D-3) 25 mcg (1,000 unit) tablet Take 1 tablet (1,000 Units total) by mouth 1 (one) time each day. Active TylenoL 325 mg tablet Take 2 tablets (650 mg total) by mouth every 6 hours as needed. 4 Active Eliquis 5 mg tablet Take 1 tablet (5 mg total) by mouth 2 (two) times a day. Active capecitabine (XELODA) 500 mg tablet Take 2 tablets (1,000 mg total) by mouth 2 (two) times a day Take Friday through Fridays only. Take 30 minutes after each meal. 4 Active gabapentin (NEURONTIN) 300 mg capsule Take 3 capsules (900 mg total) by mouth 1 (one) time each day. Active multivitamin (multivitamin-iron- minerals) tablet Take 1 tablet by mouth daily. Active omeprazole (PriLOSEC) [address] capsule Take 1 capsule (20 mg total) by mouth 2 (two) times a day. Active ondansetron (ZOFRAN) 8 mg tablet Take 1 tablet (8 mg total) by mouth every 8 (eight) hours if needed for nausea or vomiting. Active sucralfate (CARAFATE) 1 gram tablet Take 1 tablet (1 g total) by mouth 2 (two) times a day. 4 Active ondansetron ODT (ZOFRAN-ODT) 8 mg disintegrating tablet DISSOLVE 1 TABLET IN MOUTH EVERY 8 HOURS Active Fish OiL 1,000 (120-180) mg capsule take 1 capsule by mouth once daily 4 Active Active Problems Problem Noted Date Diagnosed [...] Encounters Date Type Department Care Team Description 09/29/2024 8:48 AM EST - 09/29/2024 11:[address] 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 Hospital Encounter [facility] Radiation Oncology [address] [phone] Megan Mcneill NP 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CMS/HCC) (Primary Dx) Discharge Disposition: Home or Self Care 09/10/2024 10:05 AM EST - 09/10/2024 11:59 PM EST Hospital Encounter [facility] Radiation Oncology [address] [phone] Discharge Disposition: Home or Self Care 09/09/2024 10:04 AM EST - 09/09/2024 11:59 PM EST Hospital Encounter [facility] Radiation Oncology [address] [phone] Discharge Disposition: Home or Self Care 09/08/2024 10:05 AM EST - 09/08/2024 11:59 PM EST Hospital Encounter [facility] Radiation Oncology [address] [place] [phone] Discharge Disposition: Home or Self Care 09/07/2024 10:03 AM EST - 09/07/2024 11:59 PM EST Hospital Encounter [facility] Radiation Oncology [address] [place] [phone] Discharge Disposition: Home or Self Care 09/06/2024 9:56 AM EST - 09/06/2024 11:59 PM EST Hospital Encounter [facility] Radiation Oncology [address] [place] [phone] Discharge Disposition: Home or Self Care 09/03/2024 10:20 AM EST - 09/03/2024 11:59 PM EST Hospital Encounter [facility] Radiation Oncology [address] [place] [phone] Elba Krueger MD 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CMS/HCC) (Primary Dx) Discharge Disposition: Home or Self Care 09/03/2024 10:07 AM EST - 09/03/2024 11:59 PM EST Hospital Encounter [facility] Radiation Oncology [address] [place] [phone] Discharge Disposition: Home or Self Care 09/02/2024 9:49 AM EST - 09/02/2024 11:59 PM EST Hospital Encounter [facility] Radiation Oncology [address] [place] [phone] Discharge Disposition: Home or Self Care 08/31/2024 10:06 AM EST - 08/31/2024 11:59 PM EST Hospital Encounter [facility] Radiation Oncology [address] [place] [phone] Discharge Disposition: Home or Self Care 08/30/2024 10:20 AM EST - 08/30/2024 11:59 PM EST Hospital Encounter [facility] Radiation Oncology [address] [place] [phone] Amadou Soliz MD 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CMS/HCC) (Primary Dx) Discharge Disposition: Home or Self Care 08/30/2024 9:36 AM EST - 08/30/2024 11:59 PM EST Hospital Encounter [facility] Radiation Oncology [address] [place] [phone] Discharge Disposition: Home or Self Care 08/27/2024 10:09 AM EST - 08/27/2024 11:59 PM EST Hospital Encounter [facility] Radiation Oncology [address] [place] [phone] Discharge Disposition: Home or Self Care 08/26/2024 9:59 AM EST - 08/26/2024 11:59 PM EST Hospital Encounter [facility] Radiation Oncology [address] [place] [phone] Discharge Disposition: Home or Self Care 08/24/2024 10:00 AM EST - 08/24/2024 11:59 PM EST Hospital Encounter [facility] Radiation Oncology [address] [place] [phone] Discharge Disposition: Home or Self Care 08/23/2024 10:11 AM EST - 08/23/2024 11:59 PM EST Hospital Encounter [facility] Radiation Oncology [address] [place] [phone] Discharge Disposition: Home or Self Care 08/20/2024 10:20 AM EST - 08/20/2024 11:59 PM EST Hospital Encounter [facility] Radiation Oncology [address] [place] [phone] Elba Krueger MD 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CMS/HCC) (Primary Dx) Discharge Disposition: Home or Self Care 08/20/2024 10:07 AM EST - 08/20/2024 11:59 PM EST Hospital Encounter [facility] Radiation Oncology [address] [place] [phone] Discharge Disposition: Home or Self Care 08/19/2024 10:08 AM EST - 08/19/2024 11:59 PM EST Hospital Encounter [facility] Radiation Oncology [address] [place] [phone] Discharge Disposition: Home or Self Care 08/18/2024 10:05 AM EST - 08/18/2024 11:59 PM EST Hospital Encounter [facility] Radiation Oncology [address] [place] [phone] Discharge Disposition: Home or Self Care 08/17/2024 10:04 AM EST - 08/17/2024 11:59 PM EST Hospital Encounter [facility] Radiation Oncology [address] [place] [phone] Discharge Disposition: Home or Self Care 08/16/2024 9:52 AM EST - 08/16/2024 11:59 PM EST Hospital Encounter [facility] Radiation Oncology [address] [place] [phone] Discharge Disposition: Home or Self Care 08/13/2024 10:17 AM EST - 08/13/2024 11:59 PM EST Hospital Encounter [facility] Radiation Oncology [address] [place] [phone] Elba Krueger MD 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CMS/HCC) (Primary Dx) Discharge Disposition: Home or Self Care 08/13/2024 9:49 AM EST - 08/13/2024 11:59 PM EST Hospital Encounter [facility] Radiation Oncology [address] [place] [phone] Discharge Disposition: Home or Self Care 08/12/2024 10:07 AM EST - 08/12/2024 11:59 PM EST Hospital Encounter [facility] Radiation Oncology [address] [place] [phone] Discharge Disposition: Home or Self Care 08/11/2024 10:29 AM EST - 08/11/2024 11:59 PM EST Hospital Encounter [facility] Radiation Oncology [address] [place] [phone] Discharge Disposition: Home or Self Care 08/10/2024 10:22 AM EST - 08/10/2024 11:59 PM EST Hospital Encounter [facility] Radiation Oncology [address] [place] [phone] Discharge Disposition: Home or Self Care 08/09/2024 10:45 AM EST - 08/09/2024 11:59 PM EST Hospital Encounter [facility] Radiation Oncology [address] [place] [phone] Discharge Disposition: Home or Self Care 08/06/2024 10:39 AM EST - 08/06/2024 11:59 PM EST Hospital Encounter [facility] Radiation Oncology [address] [place] [phone] Elba Krueger MD 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CMS/HCC) (Primary Dx) Discharge Disposition: Home or Self Care 08/06/2024 10:07 AM EST - 08/06/2024 11:59 PM EST Hospital Encounter [facility] Radiation Oncology [address] [place] [phone] Discharge Disposition: Home or Self Care 08/05/2024 11:15 AM EST - 08/05/2024 11:59 PM EST Hospital Encounter [facility] Radiation Oncology [address] [place] [phone] Discharge Disposition: Home or Self Care 08/05/2024 10:58 AM EST - 08/05/2024 11:59 PM EST Hospital Encounter [facility] Radiation Oncology [address] [place] [phone] Elba Krueger MD Discharge Disposition: Home or Self Care 08/04/2024 12:35 PM EST - 08/04/2024 11:59 PM EST Hospital Encounter [facility] Radiation Oncology [address] [place] [phone] Discharge Disposition: Home or Self Care 07/21/2024 11:24 AM EST - 07/21/2024 11:59 PM EST Hospital Encounter [facility] Radiation Oncology [address] [place] [phone] Elba Krueger MD 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CMS/HCC) (Primary Dx) Discharge Disposition: Home or Self Care 07/21/2024 10:51 AM EST - 07/21/2024 11:59 PM EST Hospital Encounter [facility] Radiation Oncology [address] [place] [phone] 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[facility]/HCC) Discharge Disposition: Home or Self Care 07/21/2024 Telephone [facility] Radiation Oncology [address] [place] [phone] Maricruz Muhammad RN 07/21/2024 Social Work [facility] Infusion Center [address] [place] [phone] Jack Bright LMSW from Last 3 Months Immunizations Name Administration Dates Next Due Influenza Quadravalent, alicia mbinant, 0.5ml, preservative free (Flublok) 18yo and older 07/03/2023,08/30/2020 Influenza Quadrivalent, 0.5m l, preservative free (Fluarix; FluLaval; Fluzone) ages 6mo and older (Afluria) 3yo and older 05/16/2022,06/15/2021,05/30/2017 Influenza Quadrivalent, with preservative (Fluzone; Afluria) 6mo and older 07/13/2019,06/26/2018 Influenza trivalent, recombi nant, 0.5mL, preservative free (Flublok) 18yo and older 05/13/2024 Influenza trivalent, with pr eservative (Fluzone; Afluria) 6mo and older 06/17/2016 Td Tetanus diptheria, preser vative free (Tenivac) 7yo and older 03/28/2015 Tdap Tetanus diptheria acell ular pertussis (Boostrix; Adacel) 7yo and older 03/28/2015 Surgical History Surgery Date Site/Laterality Comments ESOPHAGOGASTRODUODENOSCOPY [...] Info) Description 11/26/2024 9:30 AM EDT Appointment [facility] Radiation Oncology [address] [place] [phone] Megan Mcneill NP [address] [place] [address] [address] [place] [phone] Health Maintenance Due Date Last Done Comments Breast Cancer Screening 1960 Pneumococcal Vaccine: 50+ Years (1 of 2 - PCV) 1980 Pneumococcal Vaccine: Pediatrics (0 to 5 Years) and At-Risk Patients (6 to 64 Years) (1 of 2 - PCV) 1980 Zoster Vaccines (1 of 2) 1980 Cervical [...] patient's age to complete this topic Meningococcal B Vacine Aged Out No lo nger eligible based on patient's age to complete [...] of liver and intrahepatic bile duct (CMS/HCC) RAD ONC MSQ TREATMENT SUMMARY Routine 09/10/2024 [...] EST from Last 3 Months Results * PET CT Skull to Mid [...] Signed Date: 09/29/2024 14:21 ET Workstation ID: [id number] Transcribed By: Self Edit Transcribed Date: 09/29/2024 [...] Signed Date: 09/29/2024 14:21 ET Workstation ID: [id number] Transcribed By: Self Edit Transcribed Date: 09/29/2024 14:12 ET Elliott Doan MD IMG NM PROCEDURES Final Result * Rad Onc Msq Treatment Summary (09/10/2024 [...] 10:2 3 AM EST Physician Radiation Oncology RADIATION ONCOLO GY ORDERABLES Final Result [facility] RADIATION ONCOLOGY * Rad Onc Msq [...] 10:2 8 AM EST Physician Radiation Oncology RADIATION ONCOLO GY ORDERABLES Final Result [facility] RADIATION ONCOLOGY * Rad Onc Msq [...] 10:2 2 AM EST Physician Radiation Oncology RADIATION ONCERICKA GY ORDERABLES Final Result Performing Organization Address City/[facility] Co de Phone Number [facility] RADIATION ONCOLOGY [...] 10:4 5 AM EST Physician Radiation Oncology RADIATION ONCERICKA GY ORDERABLES Final Result [facility] RADIATION ONCOLOGY * Rad Onc Msq [...] RADIATION ONCOLOGY 09/06/2024 10:2 1 AM EST us Physician Radiation Oncology MD RADIATION ONCOLO GY ORDERABLES Final Result [facility] RADIATION ONCOLOGY * Complete blood count (09/06/2024 10:05 AM EST) Only the most recent of5 resultswithin the time period is included. WBC 6.9 4.8 - 10.8 K/mcL LAB HEMETOLOGY METHOD 09/06/2024 11:39 AM [facility] RBC 3.80 3.80 - 4.80 M/[facility] LAB HEMETOLOGY METHOD 09/06/2024 11:39 AM [facility] Hemoglobin 11.8 11.5 - 16.0 g/dL LAB HEMETOLOGY METHOD 09/06/2024 11:39 AM [facility] Hematocrit 36.0 35.0 - 47.0 % LAB HEMETOLOGY METHOD 09/06/2024 11:39 AM [facility] MCV 94.0 79.0 - 98.0 FL LAB HEMETOLOGY METHOD 09/06/2024 11:39 AM [facility] MCH 30.8 27.0 - 32.0 pcg LAB HEMETOLOGY METHOD 09/06/2024 11:39 AM [facility] MCHC 32.8 32.0 - 37.0 g/dL LAB HEMETOLOGY METHOD 09/06/2024 11:39 AM [facility] RDW 15.0 11.0 - 15.0 % LAB HEMETOLOGY METHOD 09/06/2024 11:39 AM [facility] Platelets 179 130 - 400 K/mcL LAB HEMETOLOGY METHOD 09/06/2024 11:39 AM [facility] MPV 10.0 7.0 - 11.0 FL LAB HEMETOLOGY METHOD 09/06/2024 11:39 AM [facility] NRBC 0.0 <1.0 % LAB HEMETOLOGY METHOD 09/06/2024 11:39 AM [facility] NRBC Absolute 0.00 <0.10 K/mcL LAB HEMETOLOGY METHOD 09/06/2024 11:39 AM [facility] Blood Venous blood specimen / Unknown Venipuncture / Unknown 09/06/2024 10:05 AM EST 09/06/2024 11:13 AM EST us Elliott Doan MD LAB BLOOD ORDERABLES Final Resu lt [facility] [address] [place] [address], [place] [phone] * (ABNORMAL) Comprehensive metabolic panel (09/06/2024 10:05 AM EST) Only the most recent of5 resultswithin the time period is included. Sodium 135 133 - 145 mmol/L LAB CHEMISTRY METHOD 09/06/2024 11:42 AM [facility] Potassium 3.8 3.5 - 5.5 mmol/L LAB CHEMISTRY METHOD 09/06/2024 11:42 AM [facility] Chloride 103 96 - 110 mmol/L LAB CHEMISTRY METHOD 09/06/2024 11:42 AM [facility] CO2 27 21 - 32 mmol/L LAB CHEMISTRY METHOD 09/06/2024 11:42 AM [facility] Anion Gap 5 3 - 11 LAB CHEMISTRY METHOD 09/06/2024 11:42 AM [facility] Glucose 101(H) 70 - 100 mg/dL LAB CHEMISTRY METHOD 09/06/2024 11:42 AM [facility] BUN 14 5 - 25 mg/dL LAB CHEMISTRY METHOD 09/06/2024 11:42 AM [facility] Creatinine 0.67 0.50 - 1.10 mg/dL LAB CHEMISTRY METHOD 09/06/2024 11:42 AM [facility] eGFR 99 >=60 mL/min/1. 73m2 LAB CHEMISTRY METHOD 09/06/2024 11:42 AM [facility] Comment:Calculation based on the??Chronic Kidney Disease Epidemiology Collaboration (CKD-EPI) equation refit??without adjustment for race. BUN/Creatinine Ratio 20.9 LAB CHEMISTRY METHOD 09/06/2024 11:42 AM [facility] Calcium 8.5 8.5 - 10.5 mg/dL LAB CHEMISTRY METHOD 09/06/2024 11:42 AM [facility] AST (SGOT) 16 10 - 42 unit/L LAB CHEMISTRY METHOD 09/06/2024 11:42 AM [facility] ALT (SGPT) 27 10 - 60 unit/L LAB CHEMISTRY METHOD 09/06/2024 11:42 AM [facility] Alkaline Phosphatase 103 42 - 121 unit/L LAB CHEMISTRY METHOD 09/06/2024 11:42 AM [facility] Total Protein 7.4 6.0 - 8.0 g/dL LAB CHEMISTRY METHOD 09/06/2024 11:42 AM [facility] Albumin 3.3 3.2 - 5.0 g/dL LAB CHEMISTRY METHOD 09/06/2024 11:42 AM [facility] Total Bilirubin 0.3 0.0 - 1.4 mg/dL LAB CHEMISTRY METHOD 09/06/2024 11:42 AM [facility] Blood Venous blood specimen / Unknown Venipuncture / Unknown 09/06/2024 10:05 AM EST 09/06/2024 11:13 AM EST Elliott Doan MD LAB BLOOD ORDERABLES Final Resu lt [facility] [address] [place] [address], * Rad Onc Msq Treatment Summary (09/03/2024 [...] 10:2 6 AM EST Physician Radiation Oncology RADIATION ONCOLO GY ORDERABLES Final Result [facility] RADIATION ONCOLOGY * Rad Onc Msq [...] RADIATION ONCOLOGY 09/02/2024 10:2 7 AM EST us Physician Radiation Oncology RADIATION ONCOLO GY ORDERABLES Final Result [facility] RADIATION ONCOLOGY * Rad Onc Msq [...] 10:1 8 AM EST Physician Radiation Oncology RADIATION ONCOLO GY ORDERABLES Final Result [facility] RADIATION ONCOLOGY * Rad Onc Msq [...] 10:2 5 AM EST Physician Radiation Oncology RADIATION ONCOLO GY ORDERABLES Final Result [facility] RADIATION ONCOLOGY * Rad Onc Msq [...] 10:2 5 AM EST Physician Radiation Oncology RADIATION ONCOLO GY ORDERABLES Final Result Performing Organization Address City/[facility] Co de Phone Number [facility] RADIATION ONCOLOGY [...] 10:2 7 AM EST Physician Radiation Oncology RADIATION ONCERICKA GY ORDERABLES Final Result [facility] RADIATION ONCOLOGY * Rad Onc Msq [...] 10:4 5 AM EST Physician Radiation Oncology RADIATION ONCOLO GY ORDERABLES Final Result [facility] RADIATION ONCOLOGY * Rad Onc Msq [...] 10:3 0 AM EST Physician Radiation Oncology RADIATION ONCERICKA GY ORDERABLES Final Result [facility] RADIATION ONCOLOGY * Rad Onc Msq [...] 10:2 0 AM EST Physician Radiation Oncology RADIATION ONCOLO GY ORDERABLES Final Result [facility] RADIATION ONCOLOGY * Rad Onc Msq [...] 10:2 2 AM EST Physician Radiation Oncology RADIATION ONCOLO GY ORDERABLES Final Result [facility] RADIATION ONCOLOGY * Rad Onc Msq [...] 10:2 0 AM EST Physician Radiation Oncology RADIATION ONCOLO GY ORDERABLES Final Result [facility] RADIATION ONCOLOGY * Rad Onc Msq [...] 10:2 4 AM EST Physician Radiation Oncology RADIATION ONCOLO GY ORDERABLES Final Result [facility] RADIATION ONCOLOGY * Rad Onc Msq [...] 10:2 7 AM EST Physician Radiation Oncology RADIATION ONCOLO GY ORDERABLES Final Result [facility] RADIATION ONCOLOGY * Rad Onc Msq [...] 10:1 6 AM EST Physician Radiation Oncology RADIATION ONCERICKA GY ORDERABLES Final Result [facility] RADIATION ONCOLOGY * Rad Onc Msq [...] 10:5 2 AM EST Physician Radiation Oncology RADIATION ONCERICKA GY ORDERABLES Final Result [facility] RADIATION ONCOLOGY * Rad Onc Msq [...] 10:5 0 AM EST Physician Radiation Oncology RADIATION ONCOLO GY ORDERABLES Final Result [facility] RADIATION ONCOLOGY * Rad Onc Msq [...] 11:1 0 AM EST Physician Radiation Oncology RADIATION ONCOLO GY ORDERABLES Final Result [facility] RADIATION ONCOLOGY * Rad Onc Msq [...] 11:1 1 AM EST Physician Radiation Oncology RADIATION ONCOLO GY ORDERABLES Final Result Performing Organization Address City/[facility] Co de Phone Number [facility] RADIATION ONCOLOGY [...] 10:3 9 AM EST Physician Radiation Oncology RADIATION ONCOLO GY ORDERABLES Final Result Performing Organization Address City/State/[facility] Co de Phone Number [facility] RADIATION ONCOLOGY from Last 3 Months Insurance [facility] MEDICAID - [place] Care Teams Car Dumper Operator Helper Relationship Specialty Start Date End Date Adria Rubio MD [address] [place] [address] PCP - General Internal Medicine 08/04/24
--- NOTE | 2024-10-15 09:00 | MHC.OFFVIS ---
Intake Visit Reasons: 8w renal cyst Intake Note: Patient is present for 8W RENAL CYST Urology Medication:NONE Antibiotic Allergy:PENICILLIN,STREPOMYCIN Blood Thinner:APIXABAN Warehouse Man Required: No Allergies Penicillins [PENICILLINS] Allergy (Severe, Verified 10/15/24 09:03) ANAPHYLAXIS, swelling streptomycin [STREPTOMYCIN] Allergy (Severe, Verified 10/15/24 09:03) ANAPHYLAXIS HPI Comments Details: Susana is a pleasant female. She is seen for the following urologic conditions. - renal cyst Stable renal cyst No need for follow-up Paraspinal pain on right side consistent with musculoskeletal issues Suggest getting a massage gun Has had gallbladder cancer and liver resection Nephrolithiasis/Urolithiasis:?Right-sided hyperdense cyst ?Discussed imaging findings. ?They are here for further evaluation of nephrolithiasis ? - evaluation shows right hyperdense cysts not stone.?They present for evaluation of? back pain? right ? flank pain? none ? abdominal pain? none ?Associated symptoms include? Fever? No ? Nausea? No ? Chills? No ? Hematuria? No ?Urolithiasis was diagnosed recently [facility] [place]The patient previously had kidney stones whose composition w unknown.?Laboratory investigations include no recent labs.?Prior imaging includes 12/18 , a renal ultrasound, showing radiodense stone(s), 2.5cm on the right ? 01/17 , a CT (computed tomography) scan of the abdomen/pelvis (stone protocol) - right hyperdense cyst ? 01/18 , a renal ultrasound - 2.5 cm right hyperdense cyst.? - 02/19 renal ultrasound to move 5 cm stable right hyperdense cyst - 08/22 renal ultrasound to 5 cm right cyst - no further imaging recommendations required ?Current therapeutic plan will be to continue with imaging surveillance [facility] Medical History Pulmonary embolism Pulmonary nodules Pneumonitis Chest pain Chronic cough Vaginal yeast infection Breast lump on right side at 5 o'clock position History of colon polyps Breast cancer, left (~10/2016) Spondylosis Back pain Neuropathy Surgical History Hx of cholecystectomy History of esophagogastroduodenoscopy (EGD) History of lumpectomy of right breast (06/26/22) Hx of vein stripping Hx of colonoscopy (~10/2018) S/P breast lumpectomy Family History Mother No problems noted. Father No problems noted. Other No family history of cancer Social History Household Members: Family and Children Housing: House Are you a primary child care teacher to a significant other at home: No Do you presently have visiting nurse or other home services: No Alcohol intake: never Comment: med with oxycodone 5 mg po in PACU Patient Tobacco Use Status: Never used Tobacco e-Cigarette/Vaping Use: Never Used service: No Current occupational status: disabled Current occupation: rt handed Cognitive needs: No Hearing needs: No Vision needs: Yes Female Reproductive History Menstrual Age of Menarche: 15 Review of Systems Const Denies chills and Denies fever(s) Card Reports no additional complaints and Denies syncope Resp Denies cough GI Denies abdominal pain and Denies heartburn Reports as per HPI and Denies change in libido Neuro Denies syncope Psych Denies change in libido Endo Denies change in libido Physical Exam Const General: cooperative, healthy appearing, comfortable and no acute distress Orientation/consciousness: patient oriented x3 HEENT Face and sinus: Yes normal facial exam Mouth: moist mucous membranes Neck Neck: Yes normal visual inspection, Yes full ROM and Yes trachea midline Chest Chest palpation & inspection: normal inspection of the chest Resp Effort & Inspection: normal respiratory effort, able to speak in complete sentences and no respiratory distress GI Inspection: Yes normal to inspection Back/Spine/Pelvis Cervical Spine: normal cervical lordosis Thoracic/Lumbar Spine: thoracic and lumbar spine normal to inspection Skin General skin exam: no rashes or lesions noted Neuro General: patient oriented x3, gait normal, tone normal and moves all extremities Extrem General: Yes normal to inspection and Yes capillary refill normal Assessment & Plan Assessment & Plan (1) Renal cyst, right: Code(s): N28.1 - Cyst of kidney, acquired Category: Medical Plan P.r.n. follow-up Patient Instructions: This note is constructed using voice recognition software. While every effort has been made to ensure accuracy powerhouse electrician errors may have been included. Imaging studies, laboratory and physical exam results were discussed and reviewed in detail. No major barriers to patient understanding were identified. An opportunity to ask questions regarding the treatment plan was provided. All questions were answered. The patient expressed understanding and agreement with the above treatment plan. The patient is aware they should contact our office by phone for worsening of their current condition or the appearance of new urologic symptoms. Compliance is encouraged with any medications and followup testing that is ordered. It is a privilege to participate in the urologic care of your patient. If you have any questions or concerns regarding treatment for the above conditions, or other urologic issues, please do not hesitate to contact me. The office telephone contact is [phone]. Sincerely, Dr Felix Logan MD, [facility] - Urology Compassionate Specialist Care for the Genitourinary System Coding Level of Care Code Est Pt Level 3 (81067) Diagnoses Renal cyst, right N28.1
== END 2024-10-15 09:26 | disposition home or self-care (01) ==
PROVIDERS: PCP Internal Medicine; Visit Provider Urology
DX: N28.1 Cyst of kidney, acquired (principal)
CPT/HCPCS: 99213

== ENCOUNTER → 2024-10-15 07:39 | Outpatient (BNVA) | payer OTHER, SELFPAY | PROVIDERS: PCP Internal Medicine; Visit Provider Urology | DX: N28.1 Cyst of kidney, acquired (principal) | CPT/HCPCS: 99212 ==

== ENCOUNTER 2024-12-01 10:25 | Outpatient (AMB) | payer OTHER, SELFPAY ==
--- NOTE | 2024-12-01 10:54 | A.OFFVIS_ITS ---
Vital Signs 12/01/24 10:57 Height 5 ft 4 in Weight 167 lb 15.876 oz BMI 28.8 BP 130/64 Blood Pressure Location Rt brachial Position Sitting Pulse 106 H Pulse Source Pulse Oximeter Intake Visit Reasons: r/s 09/22/24 3 mos followup echo/holter Intake Note: r/s 3 mth f/up-holter /echo Head Inspector And Center Marker Required: No Accompanied by: Self / Same As Patient Allergies Penicillins [PENICILLINS] Allergy (Severe, Verified 10/19/24 16:02) ANAPHYLAXIS, swelling streptomycin [STREPTOMYCIN] Allergy (Severe, Verified 10/19/24 16:02) ANAPHYLAXIS Medication List - Last Reconciled 12/01/24 by Molina Box MD apixaban (Eliquis) 5 mg PO BID [bath stole As directed] cholecalciferol (vitamin D3) 25 mcg PO DAILY [compression stockings As directed] gabapentin 300 mg PO BEDTIME omeprazole 20 mg PO BID 90 days oxycodone 5 mg PO Q8H PRN HPI Comments Details: Pleasant 63-year-old lady from [place] who has background history of left breast cancer status post surgery and chemotherapy. No reported radiation therapy. 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 This was pretty extensive surgery and she had a tough postop course and also had a DVT and was on Lovenox until recently when she was changed to Eliquis. She has seen her primary care physician and EKGs showed premature atrial complexes. She is saying that she feels tired and gets palpitations. She also is short of breath. She is taking capecitabine currently and will be completing an 8 week course of this. She is currently in the 6th week. She is saying since she started taking the chemotherapy for gallbladder cancer she has been experiencing these symptoms. She is denying any chest discomfort. She has no history of lung disease in the past. 12/01/2024: She is here for follow-up. She is saying she has stopped chemotherapy at this stage and has been feeling well. Her breathing has improved and she has no palpitations. Holter monitor did show frequent premature atrial complexes and short runs of supraventricular tachycardia. She is saying she is feeling better since chemo was stopped and has no symptoms now. She has a liver lesion found which has been biopsied and she may need further treatment for that. [facility] Medical History Pulmonary embolism Pulmonary nodules Pneumonitis Chest pain Chronic cough Vaginal yeast infection Breast lump on right side at 5 o'clock position History of colon polyps Breast cancer, left (~10/2016) Spondylosis Back pain Neuropathy Surgical History Hx of cholecystectomy History of esophagogastroduodenoscopy (EGD) History of lumpectomy of right breast (06/26/22) Hx of vein stripping Hx of colonoscopy (~10/2018) S/P breast lumpectomy Family History Mother No problems noted. Father No problems noted. Other No family history of cancer Social History Household Members: Family and Children Housing: House Are you a primary care professionals to a significant other at home: No Do you presently have visiting nurse or other home services: No Alcohol intake: never Comment: med with oxycodone 5 mg po in PACU Patient Tobacco Use Status: Never used Tobacco e-Cigarette/Vaping Use: Never Used service: No Current occupational status: disabled Current occupation: rt handed Cognitive needs: No Hearing needs: No Vision needs: Yes Female Reproductive History Menstrual Age of Menarche: 15 Review of Systems Const Denies chills, Denies fatigue, Denies fever(s), Denies frequent falls, Denies weakness, Denies weight gain and Denies weight loss ENT Denies dizziness Card Denies chest pain, Denies leg edema, Denies lightheadedness, Denies palpitations, Denies dyspnea and Denies dyspnea on exertion Resp Denies cough, Denies dyspnea and Denies dyspnea on exertion GI Denies hematochezia Musc Denies abnormal gait, Denies muscle weakness, Denies numbness, Denies radiating pain into limb and Denies tingling Neuro Denies abnormal gait, Denies dizziness, Denies frequent falls, Denies numbness, Denies tingling and Denies weakness Endo Denies fatigue and Denies palpitations Physical Exam Vital Signs: Last Vital Signs Pulse 106 H 12/01/24 10:57 BP 130/64 12/01/24 10:57 BMI result Body Mass Index 28.8 GENERAL APPEARANCE: in no acute distress, pleasant. NECK: no carotid bruit, no jugular venous distention. SKIN: no suspicious lesions, warm and dry. HEART: no murmurs, regular rate and rhythm. LUNGS: clear to auscultation bilaterally. ABDOMEN: soft, nontender. EXTREMITIES: no edema. PERIPHERAL PULSES: equal. NEUROLOGIC: No gross deficits, AAO X 3 Assessment & Plan Assessment & Plan (1) Palpitations: Code(s): R00.2 - Palpitations Category: Medical (2) Cardiac arrhythmia: Code(s): I49.9 - Cardiac arrhythmia, unspecified Category: Medical Qualifiers: Arrhythmia type: other supraventricular tachycardia Qualified Code(s): I47.19 - Other supraventricular tachycardia Plan Pleasant 63 year female who is here for palpitations and premature atrial comple xes. She had echocardiography which showed mild aortic insufficiency but did not show any other pathology. Holter monitor showed frequent premature atrial complexes and short runs of supraventricular tachycardia. She is off chemotherapy at this point and has been feeling fine. I think most of the symptoms were related to chemotherapy. I have discussed with her that she had some short runs of supraventricular tachycardia and had premature atrial complexes and low-dose beta-blockers can be tried. She currently feels that she is doing fine and does not want to take anymore medications. On Eliquis for previous thromboembolism. She will see us back in 1 year. Thank you for allowing me to participate in the care of your patient. Please feel free to contact me if you have any questions. Coding Level of Care Code Est Pt Level 4 (31293) Complex EM visit Add On G2211 Diagnoses Palpitations R00.2 Other supraventricular tachycardia I47.19 Arrhythmia type: other supraventricular tachycardia
[2024-12-01 10:57] VITALS: BP 130/64; PULSE 106; BMI 28.8
--- OUTSIDE RECORDS SUMMARY | 2024-12-01 12:12 | XMS_ITS ---
Author Organization [facility] Address [address] [place] [address] Care Team Providers Care Header Setup Operator Name Role Phone Adria Rubio MD Primary Care Provider [phone] Active Problems Problem Noted Date Diagnosed Date [...] Fraction Dose Given/Prescribed Total Dose Given/Prescribed Technique Gallbljennifere r postop 5 36 25 of 25 180 cGy / 180 cGy 4,500 cGy / 4, 500 cGy 2 arc VMAT
--- OUTSIDE RECORDS SUMMARY | 2024-12-01 12:12 | XMS_ITS | Clinical Summary ---
Author Organization [facility] [employer], Address [address] [place] [address] [place] [address] Phone Care Team Providers Care Septic Tank Service Technician Name Role Phone OrtizAlbert martin Primary Care Provider Allergies Active Allergy Reactions Criticality Noted Date [...] age to complete this topic [place] [address] Care Teams Septic Tank Service Technician Relationship Specialty Start Date End Date Albert Ortiz DO [address] [place] [address] PCP - General Nephrology 01/10/21
--- OUTSIDE RECORDS SUMMARY | 2024-12-01 12:12 | XMS_ITS | Clinical Summary ---
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) Discharge Disposition: Home or Self Care 09/10/2024 10:20 AM EST - 09/10/2024 11:59 PM [facility] Hospital Encounter [facility] Radiation Oncology [address] [phone] Megan Mcneill NP 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CMS/HCC) (Primary Dx) Discharge Disposition: Home or Self Care 09/10/2024 10:05 AM EST - 09/10/2024 11:59 PM EST Hospital Encounter [facility] Radiation Oncology [address] [place] [phone] Discharge Disposition: Home or Self Care 09/09/2024 10:04 AM EST - 09/09/2024 11:59 PM EST Hospital Encounter [facility] Radiation Oncology [address] [phone] Discharge Disposition: Home or Self Care 09/08/2024 10:05 AM EST - 09/08/2024 11:59 PM EST Hospital Encounter [facility] Radiation Oncology [address] [place] [phone] Discharge Disposition: Home or Self Care 09/07/2024 10:03 AM EST - 09/07/2024 11:59 PM EST Hospital Encounter [facility] Radiation Oncology [address] [place] [phone] Discharge Disposition: Home or Self Care 09/06/2024 9:56 AM EST - 09/06/2024 11:59 PM EST Hospital Encounter [facility] Radiation Oncology [address] [place] [phone] Discharge Disposition: Home or Self Care 09/03/2024 10:20 AM EST - 09/03/2024 11:59 PM EST Hospital Encounter [facility] Radiation Oncology [address] [place] [phone] Elba Krueger MD 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CMS/HCC) (Primary Dx) Discharge Disposition: Home or Self Care 09/03/2024 10:07 AM EST - 09/03/2024 11:59 PM EST Hospital Encounter [facility] Radiation Oncology [address] [place] [phone] Discharge Disposition: Home or Self Care 09/02/2024 9:49 AM EST - 09/02/2024 11:59 PM EST Hospital Encounter [facility] Radiation Oncology [address] [place] [phone] Discharge Disposition: Home or Self Care from Last 3 Months Immunizations Name Administration [...] History Medical History Date Comments Breast cancer Clotting disorder (CMS/HCC) Family History Medical History [...] 07/07/2024 8:40 AM EST Plan of Treatment Health Maintenance Due Date Last Done Comments Breast Cancer Screening 1961 Pneumococcal Vaccine: 50+ Years (1 of 2 - PCV) 1980 Pneumococcal Vaccine: Pediatrics (0 to 5 Years) and At-Risk Patients (6 to 64 Years) (1 of 2 - PCV) 1980 Zoster Vaccines (1 of 2) 1980 Cervical Cancer Screening: Pap Smear 1982 RSV Immunization Adult Patients (1 - Risk 60-74 years 1-dose series) [...] TREATMENT SUMMARY Routine 09/02/2024 10:27 AM EST from Last 3 Months Results [...] Signed Date: 09/29/2024 14:21 ET Workstation ID: [id number] Transcribed By: Self Edit Transcribed Date: 09/29/2024 [...] Signed Date: 09/29/2024 14:21 ET Workstation ID: [id number] Transcribed By: Self Edit Transcribed Date: 09/29/2024 [...] GY ORDERABLES Final Result Performing Organization Address City/[facility]/ZIP Co de Phone Number [facility] RADIATION ONCOLOGY [...] RADIATION ONCOLOGY 09/08/2024 10:2 2 AM EST us Physician Radiation Oncology RADIATION [...] 10:2 1 AM EST Physician Radiation Oncology RADIATION ONCOLO GY ORDERABLES Final Result [facility] * Complete blood count (09/06/2024 10:05 AM [facility]) [facility] WBC 6.9 4.8 - 10.8 K/mcL LAB HEMETOLOGY METHOD 09/06/2024 11:39 AM [facility] RBC 3.80 3.80 - 4.80 M/mcL LAB HEMETOLOGY METHOD 09/06/2024 11:39 AM [facility] Hemoglobin 11.8 11.5 - 16.0 g/dL LAB HEMETOLOGY METHOD 09/06/2024 11:39 AM [facility] Hematocrit 36.0 35.0 - 47.0 % LAB HEMETOLOGY METHOD 09/06/2024 11:39 AM [facility] MCV 94.0 79.0 - 98.0 FL LAB HEMETOLOGY METHOD 09/06/2024 11:39 AM [facility] MCH 30.8 27.0 - 32.0 pcg LAB HEMETOLOGY METHOD 09/06/2024 11:39 AM [facility] MCHC 32.8 32.0 - 37.0 g/dL LAB HEMETOLOGY METHOD 09/06/2024 11:39 AM [facility] RDW 15.0 11.0 - 15.0 % LAB HEMETOLOGY METHOD 09/06/2024 11:39 AM [facility] Platelets 179 130 - 400 K/mcL LAB HEMETOLOGY METHOD 09/06/2024 11:39 AM [facility] MPV 10.0 7.0 - 11.0 FL LAB HEMETOLOGY METHOD 09/06/2024 11:39 AM [facility] NRBC 0.0 <1.0 % LAB HEMETOLOGY METHOD 09/06/2024 11:39 AM [facility] NRBC Absolute 0.00 <0.10 K/mcL LAB HEMETOLOGY METHOD 09/06/2024 11:39 AM [facility] Blood Venous blood specimen / Unknown Venipuncture / Unknown 09/06/2024 10:05 AM EST 09/06/2024 11:13 AM EST us Elliott Doan MD LAB BLOOD ORDERABLES Final Resu lt [facility] [address] [place] [address], [place] [phone] * (ABNORMAL) Comprehensive metabolic panel (09/06/2024 10:05 AM EST) Sodium 135 133 - 145 mmol/L LAB CHEMISTRY METHOD 09/06/2024 11:42 AM [facility] Potassium 3.8 3.5 - 5.5 mmol/L LAB CHEMISTRY METHOD 09/06/2024 11:42 AM [facility] Chloride 103 96 - 110 mmol/L LAB CHEMISTRY METHOD 09/06/2024 11:42 AM [facility] CO2 27 21 - 32 mmol/L LAB CHEMISTRY METHOD 09/06/2024 11:42 AM [facility] Anion Gap 5 3 - 11 LAB CHEMISTRY METHOD 09/06/2024 11:42 AM [facility] Glucose 101(H) 70 - 100 mg/dL LAB CHEMISTRY METHOD 09/06/2024 11:42 AM [facility] BUN 14 5 - 25 mg/dL LAB CHEMISTRY METHOD 09/06/2024 11:42 AM [facility] Creatinine 0.67 0.50 - 1.10 mg/dL LAB CHEMISTRY METHOD 09/06/2024 11:42 AM [facility] eGFR 99 >=60 mL/min/1. 73m2 LAB CHEMISTRY METHOD 09/06/2024 11:42 AM [facility] Comment:Calculation based on the??Chronic Kidney Disease Epidemiology Collaboration (CKD-EPI) equation refit??without adjustment for race. BUN/Creatinine Ratio 20.9 LAB CHEMISTRY METHOD 09/06/2024 11:42 AM [facility] Calcium 8.5 8.5 - 10.5 mg/dL LAB CHEMISTRY METHOD 09/06/2024 11:42 AM [facility] AST (SGOT) 16 10 - 42 unit/L LAB CHEMISTRY METHOD 09/06/2024 11:42 AM [facility] ALT (SGPT) 27 10 - 60 unit/L LAB CHEMISTRY METHOD 09/06/2024 11:42 AM [facility] Alkaline Phosphatase 103 42 - 121 unit/L LAB CHEMISTRY METHOD 09/06/2024 11:42 AM [facility] Total Protein 7.4 6.0 - 8.0 g/dL LAB CHEMISTRY METHOD 09/06/2024 11:42 AM [facility] Albumin 3.3 3.2 - 5.0 g/dL LAB CHEMISTRY METHOD 09/06/2024 11:42 AM [facility] Total Bilirubin 0.3 0.0 - 1.4 mg/dL LAB CHEMISTRY METHOD 09/06/2024 11:42 AM [facility] Blood Venous blood specimen / Unknown Venipuncture / Unknown 09/06/2024 10:05 AM EST 09/06/2024 11:13 AM EST us Elliott Doan MD LAB BLOOD ORDERABLES Final Resu lt [facility] [address] [place] [address], * Rad Onc Msq Treatment Summary (09/03/2024 [...] GY ORDERABLES Final Result Performing Organization Address City/[facility] Co de Phone Number [facility] [...] GY ORDERABLES Final Result Performing Organization Address City/[facility]/ZIP Co de Phone Number [facility] RADIATION ONCOLOGY from Last 3 Months Insurance [facility] hoccer PLAN MEDICAID - [place] Care Teams Pyrometer Mechanic Relationship Specialty Start Date End Date Adria Rubio MD [address] [place] [address] PCP - General Internal Medicine 08/04/24
== END 2024-12-01 11:54 | disposition home or self-care (01) ==
LOC: HO.HCS 10:26
PROVIDERS: PCP Internal Medicine; Visit Provider Internal Medicine Cardiovascular Disease
DX: R00.2 Palpitations (principal); I47.19 Other supraventricular tachycardia
CPT/HCPCS: 99214; G2211

== ENCOUNTER → 2024-12-01 10:25 | Outpatient (BNVA) | payer OTHER, SELFPAY | PROVIDERS: PCP Internal Medicine; Visit Provider Internal Medicine Cardiovascular Disease | DX: I47.19 Other supraventricular tachycardia (principal); R00.2 Palpitations | CPT/HCPCS: 99212 ==

== ENCOUNTER 2024-12-08 11:18 | Outpatient (AMB) | payer OTHER, SELFPAY ==
[2024-12-08 11:19] VITALS: BP 124/70; PULSE 96; O2SAT 98; BMI 28.7
--- NOTE | 2024-12-08 11:19 | A.OFFPC_ITS ---
Vital Signs 12/08/24 11:19 Height 5 ft 4 in Weight 167 lb 2 oz BMI 28.7 BP 124/70 Blood Pressure Location Rt brachial Position Sitting Pulse 96 Pulse Source Pulse Oximeter Pulse Oximetry (%) 98 Oxygen Delivery Method Room Air Intake Visit Reasons: Annual PE Allergies Penicillins [PENICILLINS] Allergy (Severe, Verified 12/08/24 11:21) ANAPHYLAXIS, swelling streptomycin [STREPTOMYCIN] Allergy (Severe, Verified 12/08/24 11:21) ANAPHYLAXIS Medication List - Last Reconciled 12/08/24 by Adria Rubio MD abemaciclib 150 mg PO BID apixaban (Eliquis) 5 mg PO BID [bath stole As directed] cholecalciferol (vitamin D3) 25 mcg PO DAILY [compression stockings As directed] gabapentin 300 mg PO BEDTIME omeprazole 20 mg PO BID 90 days Tobacco use date assessed: 12/08/24 Dental Screening Dental Screen Date: 12/08/24 Did you have a dental visit in the last 12 months?: Yes Did you have a dental problem in the last 6 months where you did not have access to dental care?: No Was dental information given to patient?: Patient has dentist HPI Annual PE HPI Details Physical exam appointment - The patient is a 63-year-old female ju st finished chemotherapy for the treatments for metastatic gallbladder cancer. - Underwent surgery, chemotherapy, and r adiation therapy; status post chemotherapy, there are complications. Leg fatigue lack of appetite - Imaging shows hepatic metastases indic ating a spread of gallbladder cancer, with enlarged retrocavernal lymph nodes. - Reports knee pain potentially linked t o arthritis, details remaining unspecified. Health Maintenance - Blood tests ordered include complete b lood count, kidney function, liver function, vitamin levels, and cholesterol evaluation. Hodges of Care: Dr. Doan oncology [facility] Medications - Gabapentin for neuropathic pain - Omeprazole for gastroesophageal reflux disease - Vitamin D supplementation - Blood thinner initiated post-surgery Patient Instructions - Undergo all ordered blood tests by Dr. Doan as well as PCP - Refrain from taking Tylenol due to pos sible adverse effects on liver health. - Discuss alternative pain management op tions with me due to liver concerns. Review of Systems - General: No fever no chills - Neurological: No headaches no dizzin ess - Ear nose throat: No sore throat no hearing difficulty no ear pain - Cardiovascular: No syncope, no chest pain, no palpitations - Gastrointestinal: No nausea vomiting or diarrhea - Endocrine: No polyuria polydipsia no heat intolerance - Genitourinary: No dysuria - Skin: No new complaints Physical Exam General: Cooperative, healthy appearing, comfortable, no acute distress Orientation: Patient oriented x3 Head: Normal to inspection Ears: Within normal limit visually Nose: Normal external nose present Face and sinus: Normal facial exam Eyes: Appearance normal, extraocular movement intact pupils reactive Neck: Normal visual inspection and supple Respiratory: Normal respiratory effort and able to speak in complete sentences. Clear to auscultation, no stridor Cardiovascular: S1 and S2 GI: Normal to inspection. Soft to palpation and nontender Skin: Turgor normal, no acute findings Neuro: Patient oriented x3, motor sensory intact Extremities: Normal to inspection, knee pain noted, possible arthritis PFSH Medical History Pulmonary embolism Pulmonary nodules Pneumonitis Chest pain Chronic cough Vaginal yeast infection Breast lump on right side at 5 o'clock position History of colon polyps Breast cancer, left (~10/2016) Spondylosis Back pain Neuropathy Surgical History Hx of cholecystectomy History of esophagogastroduodenoscopy (EGD) History of lumpectomy of right breast (06/26/22) Hx of vein stripping Hx of colonoscopy (~10/2018) S/P breast lumpectomy Family History Mother No problems noted. Father No problems noted. Other No family history of cancer Social History Household Members: Family and Children Housing: House Are you a primary care partner to a significant other at home: No Do you presently have visiting nurse or other home services: No Alcohol intake: never Comment: med with oxycodone 5 mg po in PACU Patient Tobacco Use Status: Never used Tobacco e-Cigarette/Vaping Use: Never Used service: No Current occupational status: disabled Current occupation: rt handed Cognitive needs: No Hearing needs: No Vision needs: Yes Female Reproductive History Menstrual Age of Menarche: 15 Questionnaire PHQ-9 Over the last 2 weeks, how often have you been bothered by any of the following problems? 47693 - PHQ-9 Billing: Patient declined-do not bill Source: Developed by Drs. Andi Kim, Ashley Watson, Donovan Jones and colleagues, with an educational reji from [employer]. Thrive Questionnaire Date Thrive assessed: 12/08/24 I am a: Patient What is your living situation today?: I have a steady place to live Within the past 12 months, did the food you bought not last and you didn't have the money to get more?: Never true Within the past 12 months, did you worry whether your food would run out before you got money to buy more?: Never true Do you have trouble paying for medicines?: No Do you have trouble getting transportation to medical appointments?: No Do you have trouble paying your heating and electricity bill?: No Do you have trouble taking care of your child, family member or friend?: No Do you have trouble with day-to-day activities such as bathing, preparing meals, shopping, managing finances, etc.?: No Are you currently unemployed and looking for a job?: No Are you interested in more education?: No Please select the resources that you would like help with: None Currently or been in a relationship where the following occur: No concerns reported THRIVE Score: 0 AUDIT C Alcohol Use Questionnaire (AUDIT-C) 1. How often do you have a drink containing alcohol?: Never 3. How often do you have six or more drinks on one occasion?: Never Total Score: 0 Score Reviewed/Action Taken: Yes INOCENCIO-7 AMB Questionnaire INOCENCIO-7 Date INOCENCIO - 7 assessed: 12/08/24 Feeling nervous, anxious, or on edge: 0 = Not at all Not being able to stop or control worryin = Not at all Worrying too much about different things: 0 = Not at all Trouble relaxin = Not at all Being so restless that it is hard to sit still: 0 = Not at all Becoming easily annoyed or irritable: 0 = Not at all Feeling afraid as if something awful might happen: 0 = Not at all Total INOCENCIO-7 score (0-4 normal; 5-9 mild; 10-14 moderate; 15-21 severe): 0 Source: Developed by Renny Cooket B.W. Walter, Donovan Jones and colleagues, with an educational reji from [employer]. INOCENCIO-7 Assessment Billing INOCENCIO-7 Assessment Tool: INOCENCIO-7 Assessment 59443 Physical exam (Primary Care) Vital Signs: Last Vital Signs Pulse 96 12/08/24 11:19 BP 124/70 12/08/24 11:19 Pulse Ox 98 12/08/24 11:19 Oxygen Delivery Method Room Air 12/08/24 11:19 BMI result Body Mass Index 28.7 Tobacco/Smoking Status: Tobacco use Status Tobacco use date assessed 12/08/24 12/08/24 11:22 Patient Tobacco Use Status Never used Tobacco 12/08/24 11:22 e-Cigarette/Vaping Use Never Used 12/08/24 11:22 Thrive Assessment: Date of Thrive Assessment Date Thrive assessed 12/08/24 12/08/24 11:22 Currently or been in a relationship where the following occur: No concerns reported Coding Level of Care Code Est Pt Level 3 (55389) Est Pt Prev Care 40-64y(37571) Diagnoses Encounter for general adult medical examination with abnormal findings Z00.01 Neoplastic malignant related fatigue R53.0 Fatigue type: due to neoplasm 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; 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 Additional Codes INOCENCIO-7 Assessment Billing - INOCENCIO-7 Assessment Tool: INOCENCIO-7 Assessment 03426 ([id number]) Assessment & Plan Assessment & Plan (1) Encounter for general adult medical examination with abnormal findings: Code(s): Z00.01 - Encounter for general adult medical examination with abnormal findings Category: Medical (2) Fatigue: Code(s): R53.83 - Other fatigue Category: Medical Qualifiers: Fatigue type: due to neoplasm Qualified Code(s): R53.0 - Neoplastic (malignant) related fatigue (3) 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 - Underwent surgery, chemotherapy, and radiation therapy; status post chemotherapy, there are complications. Leg fatigue lack of appetite - Imaging shows hepatic metastases indicating a spread of gallbladder cancer, with enlarged retrocavernal lymph nodes. - Reports knee pain potentially linked to arthritis, details remaining unspecified. Health Maintenance - Blood tests ordered include complete blood count, kidney function, liver function, vitamin levels, and cholesterol evaluation. Hodges of Care: Dr. Doan oncology [facility] Medications - Gabapentin for neuropathic pain - Omeprazole for gastroesophageal reflux disease - Vitamin D supplementation - Blood thinner initiated post-surgery Patient Instructions - Undergo all ordered blood tests by Dr. Doan as well as PCP - Refrain from taking Tylenol due to possible adverse effects on liver health. - Discuss alternative pain management options with me due to liver concerns. Orders: Orders Vitamin D 25-OH (D2 and D3) Today R53.83 - Other fatigue Ferritin Today R53.83 - Other fatigue Folate Today R53.83 - Other fatigue LDL Cholesterol Direct Today R53.83 - Other fatigue Vitamin B12 Today R53.83 - Other fatigue TSH reflex Free T4 Today R53.83 - Other fatigue
--- OUTSIDE RECORDS SUMMARY | 2024-12-08 13:22 | XMS_ITS | Clinical Summary ---
Author Organization [facility], Address [address] [place] [address] [place] [address] Phone Care Team Providers Care Drawer In Dobby Loom Name Role Phone OrtizAlbert martin Primary Care Provider [phone] Allergies Active Allergy Reactions Criticality Noted Date [...] Colorectal Cancer Screening: Sigmoidoscopy 2010 Influenza Vaccine (Season Ended) 2025 Hepatitis B Vaccine Aged Out No longe r eligible based on patient's age to complete this topic Pneumococcal Vaccine: Pediat rics (0 to 5 Years) and At-Risk Patients (6 to 64 Years) Aged Out No longer eligible b ased on patient's age to complete this topic Insurance [employer] Care Teams Drawer In Dobby Loom Relationship Specialty Start Date End Date Albert Ortiz DO [address] [place] [address] PCP - General Nephrology 01/10/21
--- OUTSIDE RECORDS SUMMARY | 2024-12-08 13:22 | XMS_ITS ---
Author Organization [facility] Address [address] [place] [address] Care Team Providers Care Sleeve Wheel Maker Name Role Phone Adria Rubio MD Primary Care Provider [phone] Active Problems Problem Noted Date Diagnosed Date [...]
--- OUTSIDE RECORDS SUMMARY | 2024-12-08 13:22 | XMS_ITS | Clinical Summary ---
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) Discharge Disposition: Home or Self Care 09/10/2024 10:20 AM EST - 09/10/2024 11:59 PM [facility] Hospital Encounter [facility] Radiation Oncology [address] [phone] Megan Mcneill NP 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CMS/HCC) (Primary Dx) Discharge Disposition: Home or Self Care 09/10/2024 10:05 AM EST - 09/10/2024 11:59 PM EST Hospital Encounter [facility] Radiation Oncology [address] [phone] Discharge Disposition: Home or Self Care 09/09/2024 10:04 AM EST - 09/09/2024 11:59 PM EST Hospital Encounter [facility] Radiation Oncology [address] [phone] Discharge Disposition: Home or Self Care from [...] age to complete this topic Meningococcal B Vaccine Aged Out No l onger eligible based on patient's age to complete [...] TREATMENT SUMMARY Routine 09/09/2024 10:28 AM EST from Last 3 Months Results [...] Signed Date: 09/29/2024 14:21 ET Workstation ID: [id number] Transcribed By: Self Edit Transcribed Date: 09/29/2024 [...] Signed Date: 09/29/2024 14:21 ET Workstation ID: [id number] Transcribed By: Self Edit Transcribed Date: 09/29/2024 [...] 10:2 8 AM EST Physician Radiation Oncology MD RADIATION ONCOLO GY ORDERABLES Final Result Performing Organization Address [facility] de Phone Number [facility] RADIATION ONCOLOGY from Last 3 Months Insurance [facility] [employer] [facility] MEDICAID - [place] Care Teams Pharmacists Relationship Specialty Start Date End Date Adria Rubio MD [address] [place] [address] PCP - General Internal Medicine 08/04/24
== END 2024-12-08 12:47 | disposition home or self-care (01) ==
LOC: HO.HMCC 11:18
PROVIDERS: PCP Internal Medicine; Visit Provider Internal Medicine
DX: Z00.01 Encounter for general adult medical examination with abnormal findings (principal); R53.0 Neoplastic (malignant) related fatigue; C79.9 Secondary malignant neoplasm of unspecified site; C23 Malignant neoplasm of gallbladder

== ENCOUNTER 2024-12-08 11:18 | Outpatient (REF) | payer OTHER, SELFPAY ==
--- OUTSIDE RECORDS SUMMARY | 2024-12-08 13:47 | XMS_ITS | Clinical Summary ---
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) Discharge Disposition: Home or Self Care 09/10/2024 10:20 AM EST - 09/10/2024 11:59 PM [facility] Hospital Encounter [facility] Radiation Oncology [address] [phone] Megan Mcneill NP 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CMS/HCC) (Primary Dx) Discharge Disposition: Home or Self Care 09/10/2024 10:05 AM EST - 09/10/2024 11:59 PM EST Hospital Encounter [facility] Radiation Oncology [address] [phone] Discharge Disposition: Home or Self Care 09/09/2024 10:04 AM EST - 09/09/2024 11:59 PM EST Hospital Encounter [facility] Radiation Oncology [address] [phone] Discharge Disposition: Home or Self Care from [...] Signed Date: 09/29/2024 14:21 ET Workstation ID: [id number] Transcribed By: Self Edit Transcribed Date: 09/29/2024 [...] Signed Date: 09/29/2024 14:21 ET Workstation ID: [id number] Transcribed By: Self Edit Transcribed Date: 09/29/2024 [...] GY ORDERABLES Final Result Performing Organization Address [facility] de Phone Number [facility] RADIATION ONCOLOGY from Last 3 Months Insurance [facility] Your Office Agent [facility] MEDICAID - [place] Care Teams Au Pair Relationship Specialty Start Date End Date Adria Rubio MD [address] [place] [address] PCP - General Internal Medicine 08/04/24
--- OUTSIDE RECORDS SUMMARY | 2024-12-08 13:47 | XMS_ITS | Clinical Summary ---
Author Organization [facility], Address [address] [place] [address] [place] [address] Phone Care Team Providers Care Textile Cutting Machine Operator Name Role Phone OrtizAlbert martin Primary Care Provider [phone] Allergies Active Allergy Reactions Criticality Noted Date [...] complete this topic Insurance [employer] Care Teams Textile Cutting Machine Operator Relationship Specialty Start Date End Date Albert Ortiz DO [address] [place] [address] PCP - General Nephrology 01/10/21
--- OUTSIDE RECORDS SUMMARY | 2024-12-08 13:47 | XMS_ITS ---
Author Organization [facility] Address [address] [place] [address] Care Team Providers Care Commodity Trader Name Role Phone Adria Rubio MD Primary Care Provider [phone] Active Problems Problem Noted Date Diagnosed Date [...]
[2024-12-08 14:14] LABS: Ferritin 306 ng/mL (10-250); TSH reflex Free T4 2.88 uIU/mL (0.32-4.0)
[2024-12-08 14:37] LABS: Folate 14.9 ng/mL (> or = 4.0); Vitamin B12 > 2000 pg/mL (200-900)
[2024-12-09 10:15] LABS: LDL Cholesterol Direct 162 mg/dL (<100)
[2024-12-12 18:08] LABS: Vitamin D 25-OH, D2 <4 ng/mL; Vitamin D 25-OH, D3 44 ng/mL; Vitamin D 25-OH, Total 44 ng/mL (30-100)
== END 2024-12-08 11:19 | disposition home or self-care (01) ==
LOC: HO.HMGCLDS 11:18
PROVIDERS: PCP Internal Medicine; Referring Provider Internal Medicine Medical Oncology; Visit Provider Internal Medicine
DX: Z00.01 Encounter for general adult medical examination with abnormal findings (principal); R53.0 Neoplastic (malignant) related fatigue; C23 Malignant neoplasm of gallbladder; C79.9 Secondary malignant neoplasm of unspecified site
CPT/HCPCS: 36415; 82306; 82607; 82728; 82746; 83721; 84443; 96127; 99212; 99396

== ENCOUNTER 2024-12-30 13:25 | Inpatient (IN) | payer OTHER, SELFPAY ==
[2024-12-30] VITALS (16 sets, daily range): BP systolic 110–210; BP diastolic 41–100; PULSE 28–127; RESP 16–33; TEMP 36.9–39.5; O2SAT 97–100; BMI 27.2
--- NOTE | ~2024-12-30 | CT_ITS ---
CLINICAL HISTORY: Elevated LFTs, hx of gallbladder CA, fevers, AP CT abdomen and pelvis with contrast Comparison: 09/22/2024 Findings: There is a new right lower lobe 0.6 x 0.5 cm pulmonary lesion, possible metastasis. There is increasing size and number of hepatic lesions, possible metastatic disease. There are no abnormal findings in the gallbladder fossa. Solid organs are otherwise within normal limits. No renal stones. No bowel obstruction, pneumoperitoneum, or pneumatosis. There are diverticula in the descending and sigmoid colon without imaging evidence of diverticulitis. Pelvic contents unremarkable. Normal appendix. The bones are intact. IMPRESSION: Findings suggesting progressive metastatic disease. This document has been electronically signed by: Segun Corcoran MD on 12/30/2024 19:23:51
--- NOTE | ~2024-12-30 | XR_ITS ---
EXAMINATION: XR CHEST 1 VIEW HISTORY: fever COMPARISON: Comparison is made with the prior examination dated 11/05/2022. FINDINGS: A single AP portable view of the chest performed at 2:33 PM is submitted. There is mild elevation of the right hemidiaphragm. Adjacent airspace opacity may represent subsegmental atelectasis or pneumonia. The left lung is clear. There is no pleural effusion, pneumothorax, or pulmonary vascular congestion. The heart is normal in size. There is degenerative disc disease of the spine. XR/XR chest 1V IMPRESSION: Elevated right hemidiaphragm with adjacent subsegmental atelectasis or pneumonia. Electronically signed by: Andi Tan MD 12/30/2024 02:45 PM EDT
--- NOTE | ~2024-12-30 | CT_ITS ---
EXAMINATION: CT ANGIOGRAM CHEST CLINICAL INFORMATION: History of PE, noncompliant anticoagulation. History of gallbladder carcinoma. History of left breast cancer. COMPARISON: CT angiogram chest 03/09/[address] [facility] 09/29/2024. TECHNIQUE: Multiple axial images were obtained through the chest after the administration of 50 mL of Omnipaque 350 intravenous contrast. Extensive vascular post-processing including two-dimensional and three-dimensional reformatted images were created and reviewed on an independent workstation. This CT examination was performed using dose optimization techniques as appropriate, variously including the following: *Automated exposure control *Adjustment of mA and/or kV according to patient size (this includes techniques or standardized protocols for targeted exams where dose is matched to indication/reason for exam; i.e. extremities or head) *Use of iterative reconstruction technique FINDINGS: VASCULAR: There are pulmonary emboli identified in left lower lobe pulmonary segmental pulmonary arteries, not previously seen. There is low clot volume. There are no additional pulmonary emboli identified. There are no right-sided pulmonary emboli seen. There are no central pulmonary emboli. The main pulmonary artery is normal in caliber. There is no right heart strain pattern and there is no reflux of contrast into the IVC. The aorta demonstrates normal contour and appearance with mild to moderate atheromatous calcification. There is no aneurysm or acute aortic syndrome. There is mild cardiac enlargement. There is no pericardial effusion. There are heavy coronary calcifications. LUNGS: There is a 7 mm nodule in the right posterior costophrenic sulcus (series 9, image 82). There is a 6 mm centrally lucent/cavitary nodule in the right upper lobe laterally (series 9, image 30). There is a 3 mm nodule in the far medial right upper lobe (series 9, image 32). There is a 4 mm nodule in the anterior right upper lobe (series 9, image 43). There is a 3 mm nodule in the lateral right upper lobe (series 9, image 46). There is a 4 mm nodule in the mid right upper lobe (series 9, image 52). There is a 5 mm nodule in the superior segment right lower lobe (series 9, image 61). There are several additional 3-4 mm nodules present in the right lung. There are numerous nodules in the left lung as well, with a 5 mm nodule in the left upper lobe laterally (series 9, image 46). There is a 5 mm right lower lobe nodule medially (series 9, image 83). There are several additional right pulmonary nodules measuring up to 5 mm. There is consolidative opacity in the anterior left apex, possible scarring or cicatrization type atelectasis. There is linear scarring/atelectasis in the superior segment right lower lobe, with subpleural atelectasis present as well. There is no effusion or pneumothorax. The small airways have normal appearance. MEDIASTINUM: There is a 7 mm prevascular lymph node in the abutting 9 mm prevascular lymph node There is a right hilar lymph node measuring 11 mm (series 9, image 56). There is a 9 mm left hilar lymph node present. Suspect a small type I hiatus hernia. There is a tiny thyroid present. AXILLA/CHEST WALL: Postoperative changes in the left breast are noted. There are no abnormal lymph nodes or masses present. UPPER ABDOMEN: There are numerous infiltrating appearing low attenuating masses throughout the liver, the most confluent in the right hepatic lobe measuring approximately 6.6 x 6.9 cm. Findings are consistent with diffuse metastatic disease. This appears to be significantly worsening. Refer to the dedicated CT abdomen and pelvis report performed concurrently. OSSEOUS STRUCTURES: No suspicious lytic or blastic bone lesions evident. Mild to moderate degenerative changes of the spine. CT/CT angio chest PE protocol IMPRESSION: 1. POSITIVE examination for pulmonary embolus in segmental left lower lobe pulmonary arteries. These were not present previously. Low clot burden. No right heart strain or reflux of contrast into the IVC. 2. There is no evidence of acute aortic syndrome. 3. Extensive innumerable metastatic lesions present throughout the liver. These have extensively worsened when compared with most recent PET CT from [facility] 09/29/2024. 4. Numerous bilateral pulmonary nodules measuring up to 6 mm, highly suspicious for metastases. The majority of these are new or enlarged. 5. Subcentimeter mediastinal and bilateral hilar lymph nodes measuring up to 1.1 cm. 6. Additional ancillary findings as discussed in the body of the report. Electronically signed by: Galdino Mcneill MD 12/30/2024 05:08 PM EDT
--- NOTE | 2024-12-30 13:58 | ED_ITS ---
HPI - General Adult General Chief complaint: General Medical Stated complaint: FEVER,TACHY 127, SENT BY FOR ABN LABS PER EMS Time Seen by Provider: 12/30/24 13:58 Source: patient, EMS, RN notes reviewed and old records reviewed Mode of arrival: EMS Limitations: no limitations History of Present Illness ED Provider: Lulu Lawrence PA-C HPI narrative: This is a 64-year-old female, with a past medical history of PE noncompliant on blood thinners, gallbladder cancer and liver resection previously underwent chemotherapy and radiation with cholecystectomy, finished in September of 2024, R breast CA with lumpectomy, who presents emergency department with complaints of acute on chronic abdominal pain for the last week, and fevers for the last 2 days. Patient reports that she went to her primary care office this afternoon and an ambulance was called as she was tachycardic, tachypneic, febrile, and hypertensive. Patient states that the only complaint that she has is the chronic abdominal pain that she was currently experiencing, she does report that this has worsened over the last several days. She did have a fever starting 2 days ago, she was not taken anything for her fevers. Patient has an extensive medical history, states that she had a cholecystectomy due to gallbladder cancer and a liver resection treated with radiation chemotherapy in August and September. She was not had any treatment since then. 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 She does endorse some intermittent chest pain and shortness of breath, denies any current chest pain or shortness of breath. She denies any nausea, vomiting, or diarrhea. No bloody or black stool. She denies any urinary symptoms. No other complaints or concerns at this time. MD complaint: Abdominal pain Quality: aching Pain Consistency: constant Relieving factors: none Exacerbating factors: none Associated symptoms: denies other symptoms Treatments prior to arrival: none Related Data Home Medications ?Medication ?Instructions ?Recorded ?Confirmed multivitamin-iron sulfate 15 1 tab PO DAILY 12/30/24 mg-folic acid 400 mcg tablet (Tab-A-Marissa Multivitamin w-iron) oxycodone 5 mg tablet 5 mg PO Q8H PRN moderate pain 12/30/24 Previous Rx's ?Medication ?Instructions ?Recorded bath stole #1 ea 01/17/21 compression stockings #1 ea 01/17/21 gabapentin 300 mg capsule 300 mg PO BEDTIME #90 caps 03/13/23 omeprazole 20 mg capsule,delayed 20 mg PO BID 90 days #180 caps 04/29/24 release cholecalciferol (vitamin D3) 25 25 mcg PO DAILY #90 tabs 10/12/24 mcg (1,000 unit) tablet abemaciclib 150 mg tablet 150 mg PO BID #60 tabs 12/07/24 geriatric [id number] 1 tab PO DAILY #90 tabs 12/16/24 apixaban 5 mg tablet (Eliquis) 5 mg PO BID #60 tabs 12/30/24 everolimus (antineoplastic) 10 mg 10 mg PO DAILY #30 tabs 12/30/24 tablet Allergies Allergy/AdvReac Type Severity Reaction Status Date / Time Penicillins [PENICILLINS] Allergy Severe ANAPHYLAXIS, Verified 12/30/24 14:00 swelling streptomycin [STREPTOMYCIN] Allergy Severe ANAPHYLAXIS Verified 12/30/24 11:38 Review of Systems 2 Review of Systems: Constitutional: No Weight loss, +Fever, No Chills, No Night Sweats, No Fatigue, No Malaise ENT/Mouth: No Hearing loss, No Ear Pain, No Nasal Congestion, No Sinus Pain, No Hoarseness, No sore throat, No Rhinorrhea, No Swallowing Difficulty Eyes: No Eye Pain, No Swelling, No Redness, No Foreign Body, No Discharge, No Vision Changes Cardiovascular: + Chest Pain, No SOB, No Dyspnea on Exertion, No Orthopnea, No Edema, No Palpitations Respiratory: No Cough, No Sputum, No Wheezing, No Smoke Exposure, No Dyspnea Gastrointestinal: No Nausea, No Vomiting, No Diarrhea, No Constipation, No Abdominal pain, No Hematochezia, No Melena Genitourinary: No irregular bleeding, No Dysuria, No Urinary Frequency, No Hematuria, No Urinary Incontinence/retention, No Urgency, No Flank Pain, No Urinary Flow Changes, No Hesitancy Musculoskeletal: No joint pain, No Myalgias, No Joint Swelling Skin: No Skin Lesions, No rash Neuro: No Weakness, No Numbness, No Paresthesias, No Loss of Consciousness, No Dizziness, No Headache Psych: No Anxiety/Panic, No Depression, No SI/HI/AH/VH, No Social Issues, Heme/Lymph: No Bruising, No Bleeding,No Lymphadenopathy Endocrine: No Polyuria, No Polydipsia, No Temperature Intolerance Yes all other systems are reviewed and are negative Constitutional: Constitutional: Reports as per [facility] Past Medical History Medical History Pulmonary embolism Pulmonary nodules Pneumonitis Chest pain Chronic cough Vaginal yeast infection Breast lump on right side at 5 o'clock position History of colon polyps Breast cancer, left (~10/2016) Spondylosis Back pain Neuropathy Surgical History Hx of cholecystectomy History of esophagogastroduodenoscopy (EGD) History of lumpectomy of right breast (06/26/22) Hx of vein stripping Hx of colonoscopy (~10/2018) S/P breast lumpectomy Family History Family History Mother No problems noted. Father No problems noted. Other No family history of cancer Social History Social History Household Members: Family and Children Housing: House Are you a primary career transition specialist to a significant other at home: No Do you presently have visiting nurse or other home services: No Unable to assess alcohol history related to: Unknown Alcohol intake: never Comment: med with oxycodone 5 mg po in PACU Patient Tobacco Use Status: Never used Tobacco Smoked in Last 30 Days: No e-Cigarette/Vaping Use: Never Used Use of substances other than those prescribed or required for medical reasons: Unknown Advance Directives: No Advance Directives Information Provided: No Do you have a plan to hurt others: No Plan Patient : No service: No Current occupational status: disabled Current occupation: rt handed Cognitive needs: No Hearing needs: No Vision needs: Yes Physical Exam ED Vital Signs: Vital Signs - 24 hr 12/30/24 13:50 12/30/24 14:51 12/30/24 16:16 Temperature 103.1 F H 99.8 F 98.4 F Pulse Rate 123 H 105 H 106 H Respiratory Rate 33 H 22 H 25 H Blood Pressure 171/86 H 125/68 120/51 L Pulse Oximetry 98 98 100 Oxygen Delivery Method Room Air Room Air Room Air 12/30/24 18:18 12/30/24 18:19 Temperature Pulse Rate 92 94 Respiratory Rate 22 H Blood Pressure 111/52 L 122/62 Pulse Oximetry 100 98 Oxygen Delivery Method Room Air BMI result Body Mass Index 27.2 Const Other: Patient was well-appearing, speaking in full sentences under no acute distress General: cooperative, comfortable and no acute distress Orientation/consciousness: patient oriented x3 Limitations: no limitations HENMT Head: Yes normal to inspection, Yes normocephalic and Yes atraumatic Ears: hearing grossly normal bilaterally General nose exam: Normal external nose present Face and sinus: Yes normal facial exam Mouth: Normal oral and palatal mucosa present, oropharynx normal and moist mucous membranes Throat: Yes posterior oropharynx normal Eyes General: appearance normal, both eyes and all related structures Eyelids: Yes eyelids normal Conjunctivae: conjunctivae normal Sclerae: sclerae normal Pupils: Equal, round and reactive pupils present EOM: EOMs intact bilaterally Neck Neck: Yes normal visual inspection, Yes full ROM and Yes no lymphadenopathy Lymphatic: no lymphadenopathy noted Chest Chest palpation & inspection: normal inspection of the chest Resp Effort & Inspection: normal respiratory effort and able to speak in complete sentences Auscultation: clear to auscultation bilaterally, no crackles, no rales, no rhonchi and no wheezes Cardio Rate: regular rate Rhythm: regular rhythm Heart sounds: S1 normal heart sound present and S2 normal heart sound present GI Other: Abdomen is soft, nontender, nondistended Inspection: Yes normal to inspection Skin General skin exam: no rashes or lesions noted Trauma: no lacerations or abrasions Wounds: no wounds Neuro General: patient oriented x3 and moves all extremities Cranial nerves: Yes Equal, round and reactive pupils present Extrem General: Yes normal to inspection Right upper extremity: normal to inspection Left upper extremity: normal to inspection Right lower extremity: normal to inspection Left lower extremity: normal to inspection Course Reevaluation(s) Reevaluation #1: Critical troponin returns, at 110 this increased from 40 > 110.7. I discussed this with my attending physician, Dr. Lambert. We are still awaiting her CT abdomen and pelvis. I reached out to the radiology department who will attempt to get in contact with the radiologist as it has been some time to have this official report. I also reached out to Dr. Box from cardiology to weigh in on elevated troponins. This is likely demand ischemia, or may be caused by the pulmonary embolism. She remains to be hemodynamically stable. She has no current complaints, no chest pain or shortness of breath. Reports chronic abdominal pain which she has had for many months. Time: 18:35 Reevaluation #2: CTA revealing positive exam for pulmonary embolism, in the segmental left lower lobe pulmonary arteries, low clot burden, there is no evidence of right heart strain or reflux. Extensive innumerable metastatic lesions present throughout the liver, extensively worst from PET CT scan from [facility] on 09/29/2024. Numerous bilateral pulmonary nodules measuring up to 6 mm, highly suspicious for metastasis, she also has subcentimeter mediastinal and bilateral hilar lymph nodes measuring up to 1.1 cm. Abdomen and pelvis revealing progressive metastatic disease. Discussed with my attending physician, Dr. Lambert, agrees with workup. I discussed this overall workup with hospitalist, Dr. Sandoval. Will start on Lovenox. Given overall workup today, patient needs to be admitted for fever, elevated troponin and PE and metastatic disease. Time: 19:54 Medications Administered Discontinued Medications Generic Name Dose Route Start Last Admin Trade Name Freq PRN Reason Stop Dose Admin Ceftriaxone Sodium 1 gm 12/30/24 14:19 12/30/24 14:23 Ceftriaxone Sodium 1 Gm Vial IVPUSH 12/30/24 14:20 1 gm ONCE ONE Administration Sodium Chloride 2,022 mls @ 2,022 mls/hr 12/30/24 13:58 12/30/24 18:17 Ns 30 ml/kg infuse over 1 hr (2022 ml) 12/30/24 14:57 Infused IV Infusion .Q1H STA Acetaminophen 1,000 mg in 100 mls @ 400 mls/hr 12/30/24 13:58 12/30/24 14:24 Ofirmev IV 12/30/24 14:12 Infused ONCE ONE Infusion Iohexol 100 ml 12/30/24 15:59 12/30/24 15:59 Iohexol 350 Mg/Ml 100 Ml Infus..Btl IV 12/30/24 16:00 85 ml ONCE ONE Administration Ondansetron HCl 4 mg 12/30/24 14:30 12/30/24 14:34 Ondansetron Hcl 4 Mg/2 Ml Vial IVPUSH 12/30/24 14:31 Not Given ONCE ONE Medical Decision Making Medical Decision Making [facility] Narrative: This is a 64-year-old female, with a past medical history of PE noncompliant on blood thinners, gallbladder cancer and liver resection previously underwent chemotherapy and radiation, finished in September of 2024, who presents emergency department with complaints of acute on chronic abdominal pain worsening over the last week, with the associated fever for the last 2 days. On arrival, patient tachycardic, tachypneic, febrile, and hypertensive. She is speaking full sentences appears to be under no acute distress. Sepsis alert was initiated, IV fluids, ceftriaxone, CTA and CT abdomen and pelvis was ordered. Differential diagnoses include pulmonary embolism, pneumonia, UTI, viral illness, diverticulitis, diverticulosis, small bowel obstruction. Differential Diagnosis Differential Diagnoses: The differential diagnosis associated with the presentation includes See above Admission/Observation Consideration of admission/observation: Escalation of care including admission/observation considered Patient requiring admission secondary to overall workup today. Consult Healthcare Provider Management of the patient was discussed with: Chute Tender Dr. Box, cardiology Lab Data [facility] Lab Attestation statement: I reviewed the patient's lab results. patient with leukocytosis of 13.3, with a normocytic anemia with an H&H of 10.9/31.7, platelets 113, chemistry with slight hyponatremia at 131 lactic acid at 1.4, elevated liver transaminases with an AST and ALT of 103/77, alk phos 178. Troponin 40.2, repeat at 110.7, BNP 138, urine with trace blood, and rbc's, otherwise noninfectious. Negative for COVID, flu, and RSV 12/30/24 14:05 12/30/24 14:05 Labs: Lab Results 12/30/24 12/30/24 12/30/24 Range/Units 14:05 16:21 17:45 WBC 13.3 H (4.8-10.8) X10*3/uL RBC 3.45 L (4.20-5.50) X10*6/uL Hgb 10.9 L (12.0-16.0) g/dl Hct 31.7 L (37.0-47.0) % MCV 91.9 (80.0-98.0) fL MCH 31.6 (27.0-33.0) pg MCHC 34.4 (31.0-35.0) g/dl RDW 13.4 (11.0-16.0) % Plt Count 113 L (160-400) X10*3/uL MPV 10.5 (9.4-12.3) fL Immature Gran % (Auto) 0.5 H (0.0-0.4) % Neut % (Auto) 80.0 H (45-73) % Lymph % (Auto) 9.4 L (20-40) % [place] % (Auto) 9.6 (2-11) % Eos % (Auto) 0.2 (0-4) % Baso % (Auto) 0.3 (0-2) % Lymph # (Auto) 1.3 (1.2-4.9) X10*3/uL [place] # (Auto) 1.3 H (0.1-1.2) X10*3/uL Eos # (Auto) 0.0 (0.0-0.4) X10*3/uL Baso # (Auto) 0.0 (0.0-0.2) X10*3/uL Abs Immat Gran (auto) 0.06 H (0.00-0.03) X10*3/uL Absolute Neuts (auto) 10.7 H (2.0-8.3) x10*3/uL Absolute Nucleated RBC 0.000 (0.0-0.012) X10*3/uL Nucleated RBC % (auto) 0.0 (0.0-0.2) /100WBC Hold Purple Top SEE NOTE Sodium 131 L (135-145) mmol/L Potassium 4.3 (3.3-5.1) mmol/L Chloride 98 (96-108) mmol/L Carbon Dioxide 24 (22-29) mmol/L Anion Gap 13 (12-20) BUN 14 (9-16) mg/dL Creatinine 0.76 (0.5-1.4) mg/dL Estim Creat Clear Calc 68.2 Estimated GFR > 60 Random Glucose 111 (60-115) mg/dL Lactic Acid 1.4 (0.5-2.0) mmol/L Calcium 9.0 (8.4-10.2) mg/dL Magnesium 1.9 (1.6-2.6) mg/dL Total Bilirubin 0.7 (0.0-1.0) mg/dL Direct Bilirubin 0.3 (0.0-0.5) mg/dL AST 103 H (5-31) U/L ALT 77 H (0-31) U/L Alkaline Phosphatase 178 H (39-117) U/L Troponin I High Sens 40.2 H 110.7 H* D (<3.5-17.0) ng/L B-Natriuretic Peptide 138 H (<100) pg/mL Total Protein 8.1 H (6.5-8.0) g/dL Albumin 3.9 (3.5-5.0) g/dL Lipase 17 (8-78) U/L Urine Color Yellow Urine Appearance Clear Urine pH 7.0 (5.0-9.0) Ur Specific [place] 1.010 (1.005-1.025) Urine Protein Negative (Neg-Trace) mg/dL Urine Glucose (UA) Negative (Negative) mg/dL Urine Ketones Negative (Negative) mg/dL Urine Blood Trace H (Negative) Urine Nitrite Negative (Negative) Ur Leukocyte Esterase Negative (Negative) Urine RBC 3-5 H (0-2) /HPF Urine WBC 0-5 (0-5) /HPF Ur Squamous Epith Cells 0-2 (0-2) /HPF Urine Bacteria None Seen (None Seen) Hyaline Casts 0-2 (0-2) /LPF Ethyl Alcohol < 10 mg/dL Influenza Type A (PCR) NEGATIVE (Negative) Influenza Type B (PCR) NEGATIVE (Negative) RSV RNA Qual (PCR) NEGATIVE (Negative) SARS-CoV-2 RNA (RT-PCR) NEGATIVE (Negative) Independent Interpretation I performed an independent interpretation of an: EKG Interpretation: EKG performed at 2:14 p.m. revealing sinus tachycardia at a ventricular rate of 110 beats per minute, QT QTC 310/419, no ST elevation or depression. EKG performed at 6:25 p.m. revealing sinus rhythm with premature ventricular complexes at a ventricular rate of 91 beats per minute, QT QTC 292/359. Radiology Impression Discussion of test interpretation with radiology: I have reviewed the radiologist's reading. Radiologist Impression: Findings: There is a new right lower lobe 0.6 x 0.5 cm pulmonary lesion, possible metastasis. There is increasing size and number of hepatic lesions, possible metastatic disease. There are no abnormal findings in the gallbladder fossa. Solid organs are otherwise within normal limits. No renal stones. No bowel obstruction, pneumoperitoneum, or pneumatosis. There are diverticula in the descending and sigmoid colon without imaging evidence of diverticulitis. Pelvic contents unremarkable. Normal appendix. The bones are intact. IMPRESSION: Findings suggesting progressive metastatic disease. This document has been electronically signed by: Segun Corcoran MD on 12/30/2024 19:23:51 Dictated By: Segun Corcoran MD [place] [id number] CT Scan Report Signed Patient: Susana Sanchez MR#: [id number] : 1960 Acct:[id number] Age/Sex: 64 / F ADM Date: 12/30/24 Loc: .ED Attending Dr: Ordering Physician: Lulu Pace Date of Service: 12/30/24 Procedure(s): CT angio chest PE protocol Accession Number(s): [id number] cc: Adria Rubio MD; Lulu Pace~ Report Number: [id number]: Total DLP = 786.00 mGy-cm EXAMINATION: CT ANGIOGRAM CHEST CLINICAL INFORMATION: History of PE, noncompliant anticoagulation. History of gallbladder carcinoma. History of left breast cancer. COMPARISON: CT angiogram chest 03/09/[address] [facility] 09/29/2024. TECHNIQUE: Multiple axial images were obtained through the chest after the administration of 50 mL of Omnipaque 350 intravenous contrast. Extensive vascular post-processing including two-dimensional and three-dimensional reformatted images were created and reviewed on an independent workstation. This CT examination was performed using dose optimization techniques as appropriate, variously including the following: *Automated exposure control *Adjustment of mA and/or kV according to patient size (this includes techniques or standardized protocols for targeted exams where dose is matched to indication/reason for exam; i.e. extremities or head) *Use of iterative reconstruction technique FINDINGS: VASCULAR: There are pulmonary emboli identified in left lower lobe pulmonary segmental pulmonary arteries, not previously seen. There is low clot volume. There are no additional pulmonary emboli identified. There are no right-sided pulmonary emboli seen. There are no central pulmonary emboli. The main pulmonary artery is normal in caliber. There is no right heart strain pattern and there is no reflux of contrast into the IVC. The aorta demonstrates normal contour and appearance with mild to moderate atheromatous calcification. There is no aneurysm or acute aortic syndrome. There is mild cardiac enlargement. There is no pericardial effusion. There are heavy coronary calcifications. LUNGS: There is a 7 mm nodule in the right posterior costophrenic sulcus (series 9, image 82). There is a 6 mm centrally lucent/cavitary nodule in the right upper lobe laterally (series 9, image 30). There is a 3 mm nodule in the far medial right upper lobe (series 9, image 32). There is a 4 mm nodule in the anterior right upper lobe (series 9, image 43). There is a 3 mm nodule in the lateral right upper lobe (series 9, image 46). There is a 4 mm nodule in the mid right upper lobe (series 9, image 52). There is a 5 mm nodule in the superior segment right lower lobe (series 9, image 61). There are several additional 3-4 mm nodules present in the right lung. There are numerous nodules in the left lung as well, with a 5 mm nodule in the left upper lobe laterally (series 9, image 46). There is a 5 mm right lower lobe nodule medially (series 9, image 83). There are several additional right pulmonary nodules measuring up to 5 mm. There is consolidative opacity in the anterior left apex, possible scarring or cicatrization type atelectasis. There is linear scarring/atelectasis in the superior segment right lower lobe, with subpleural atelectasis present as well. There is no effusion or pneumothorax. The small airways have normal appearance. MEDIASTINUM: There is a 7 mm prevascular lymph node in the abutting 9 mm prevascular lymph node There is a right hilar lymph node measuring 11 mm (series 9, image 56). There is a 9 mm left hilar lymph node present. Suspect a small type I hiatus hernia. There is a tiny thyroid present. AXILLA/CHEST WALL: Postoperative changes in the left breast are noted. There are no abnormal lymph nodes or masses present. UPPER ABDOMEN: There are numerous infiltrating appearing low attenuating masses throughout the liver, the most confluent in the right hepatic lobe measuring approximately 6.6 x 6.9 cm. Findings are consistent with diffuse metastatic disease. This appears to be significantly worsening. Refer to the dedicated CT abdomen and pelvis report performed concurrently. OSSEOUS STRUCTURES: No suspicious lytic or blastic bone lesions evident. Mild to moderate degenerative changes of the spine. CT/CT angio chest PE protocol IMPRESSION: 1. POSITIVE examination for pulmonary embolus in segmental left lower lobe pulmonary arteries. These were not present previously. Low clot burden. No right heart strain or reflux of contrast into the IVC. 2. There is no evidence of acute aortic syndrome. 3. Extensive innumerable metastatic lesions present throughout the liver. These have extensively worsened when compared with most recent PET CT from [facility] 09/29/2024. 4. Numerous bilateral pulmonary nodules measuring up to 6 mm, highly suspicious for metastases. The majority of these are new or enlarged. 5. Subcentimeter mediastinal and bilateral hilar lymph nodes measuring up to 1.1 cm. 6. Additional ancillary findings as discussed in the body of the report. Electronically signed by: Galdino Mcneill MD 12/30/2024 05:08 PM EDT Dictated By: Galdino Mcneill MD FINDINGS: A single AP portable view of the chest performed at 2:33 PM is submitted. There is mild elevation of the right hemidiaphragm. Adjacent airspace opacity may represent subsegmental atelectasis or pneumonia. The left lung is clear. There is no pleural effusion, pneumothorax, or pulmonary vascular congestion. The heart is normal in size. There is degenerative disc disease of the spine. XR/XR chest 1V IMPRESSION: Elevated right hemidiaphragm with adjacent subsegmental atelectasis or pneumonia. Electronically signed by: Andi Tan MD 12/30/2024 02:45 PM EDT RP Dictated By: Andi Tan MD Independent Historian Clinical information obtained from an independent historian. History obtained from or confirmed by: EMS External Record Review External record reviewed: Inpatient record, Office record and Outpatient record Chronic Conditions Patient?s care impacted by: Cancer Critical Care Time Critical Care Time Critical Care Time: Yes Total Critical Care Time: 60 Attestation: I have personally provided critical care time exclusive of time spent on separately billable procedures. Time includes review of lab data, radiology results, discussion with consultants, and monitoring for potential decompensation. Intervention performed as documented. Discharge Plan Discharge Clinical Impression: Fever, Elevated troponin, Pulmonary embolism, Metastatic cancer to liver, Metastatic disease Patient Disposition: Admitted As Inpatient Print Language: Peruvian
--- NOTE | 2024-12-30 13:59 | ECG_ITS ---
Test Reason : tachycardia Blood Pressure : */* mmHG Vent. Rate : 110 BPM Atrial Rate : 110 BPM P-R Int : 160 ms QRS Dur : 64 ms QT Int : 310 ms P-R-T Axes : 28 -22 14 degrees QTcB Int : 419 ms Sinus tachycardia Minimal voltage criteria for LVH, may be normal variant ( R in aVL ) Nonspecific T wave abnormality Abnormal ECG When compared with ECG of 24-Jul-2007 09:36, Vent. rate has increased by 38 bpm Nonspecific T wave abnormality now evident in Anterior leads Referred By: Lulu Lawrence Electronically Signed By: Molina Box
[2024-12-30] MEDS: 0.9 % Sodium Chloride 2,022 ML 2022 ML IV (14:05)
[2024-12-30] MEDS: Acetaminophen 1,000 MG/100 ML PIGGYBACK 400 MG IV (14:06)
[2024-12-30] MEDS: cefTRIAXone sodium 1 GM VIAL IVPUSH (14:23)
[2024-12-30 14:28] LABS: MANUAL DIFF FLAG NO
[2024-12-30 14:29] LABS: Basophils Percent Auto 0.3 % (0-2); Eosinophils Percent Auto 0.2 % (0-4); Hematocrit 31.7 % (37.0-47.0); Hemoglobin 10.9 g/dl (12.0-16.0); Imm Gran Abs Auto 0.06 X10*3/uL (0.00-0.03); Imm Gran Pct Auto 0.5 % (0.0-0.4); Lymphocytes Absolute Auto 1.3 X10*3/uL (1.2-4.9); Lymphocytes Percent Auto 9.4 % (20-40); Mean Corpuscular HGB Conc 34.4 g/dl (31.0-35.0); Mean Corpuscular Hemoglobin 31.6 pg (27.0-33.0); Mean Corpuscular Volume 91.9 fL (80.0-98.0); Mean Platelet Volume 10.5 fL (9.4-12.3); Monocytes Absolute Auto 1.3 X10*3/uL (0.1-1.2); Monocytes Percent Auto 9.6 % (2-11); Neutrophils Absolute Auto 10.7 x10*3/uL (2.0-8.3); Platelet Count 113 X10*3/uL (160-400); Red Blood Count 3.45 X10*6/uL (4.20-5.50); Red Cell Distribution Width 13.4 % (11.0-16.0); White Blood Count 13.3 X10*3/uL (4.8-10.8)
[2024-12-30 14:44] LABS: Lactic Acid 1.4 mmol/L (0.5-2.0)
[2024-12-30 14:45] LABS: Alanine Aminotransferase 77 U/L (0-31); Albumin Level 3.9 g/dL (3.5-5.0); Alkaline Phosphatase 178 U/L (39-117); Anion Gap 13 (12-20); Aspartate Amino Transferase 103 U/L (5-31); Bilirubin Direct 0.3 mg/dL (0.0-0.5); Bilirubin Total 0.7 mg/dL (0.0-1.0); Blood Urea Nitrogen 14 mg/dL (9-16); Carbon Dioxide 24 mmol/L (22-29); Chloride 98 mmol/L (96-108); Creatinine Clr Calc Pharmacy 68.2; Estimated Glomerular Filt Rate > 60; Ethanol < 10 mg/dL; Glucose Random 111 mg/dL (60-115); Lipase 17 U/L (8-78); Magnesium 1.9 mg/dL (1.6-2.6); Potassium 4.3 mmol/L (3.3-5.1); Sodium 131 mmol/L (135-145); Total Protein 8.1 g/dL (6.5-8.0)
[2024-12-30 14:51] LABS: Troponin-I High Sensitivity 40.2 ng/L (<3.5-17.0)
[2024-12-30 15:06] LABS: Influenza A PCR NEGATIVE (Negative); Influenza B PCR NEGATIVE (Negative); Resp Syncy Virus RNA Qual PCR NEGATIVE (Negative); SARS COV2 PCR INHOUSE NEGATIVE (Negative)
[2024-12-30] MEDS: iohexoL 350 MG/ML 100 ML INFUS..BTL IV (15:59)
[2024-12-30 16:31] LABS: Appearance Urine Clear; Color Urine Yellow; Glucose Urine UA Negative (Negative); Leukocyte Esterase Urine Negative (Negative); Nitrite Urine Negative (Negative); UMIC TRIGGER UACC YES; Urine Blood Trace (Negative); Urine Ketones Negative (Negative); Urine Protein Negative (Neg-Trace)
--- OUTSIDE RECORDS SUMMARY | 2024-12-30 16:34 | XMS_ITS | Clinical Summary ---
Author Organization [facility] Address [address] [place] [address] Care Team Providers Care Apparel Stock Checker Name Role Phone Adria Rubio MD Primary Care Provider [phone] Allergies Active Allergy Reactions Criticality Noted Date [...] take 1 capsule by mouth once daily Active Active Problems Problem Noted Date Diagnosed Date Rotator cuff tendonitis 09/30/2024 Sacroiliitis ([facility] V24) 09/30/2024 Segmental and somatic dysfunction of sacral tiki on 09/30/2024 Chronic pain of right hip 09/30/2024 Greater trochanteric bursitis 09/30/2024 Lumbar spondylosis 06/30/2024 Back pain 06/30/2024 Malignant neoplasm of left b reast ([facility] V24, [facility] V28) 06/30/2024 Chest pain 06/30/2024 Chronic cough 06/30/2024 History of colon polyps 06/30/2024 Neuropathy 06/30/2024 Pneumonitis 06/30/2024 Pulmonary embolism ([facility] V24, [facility] V28) Pulmonary nodules 06/30/2024 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[facility] V24, [facility] V28) Cancer Staging:Pathologic:Stage IIIB(pT2b, pN1, cM0) - Signed by Elba Krueger MD on 07/07/2024 Osteoarthritis of knee 03/24/2024 Rib pain 01/02/2021 Single acquired cyst of kidney 01/02/2021 Immunizations Name Administration Dates Next Due Influenza [...] History Medical History Date Comments Breast cancer ([facility] V24, [facility] V28) Clotting disorder ([facility] V24) Family History Medical History Relation Name Comments [...] patient's age to complete this topic Insurance [facility] [place] [id number] [place]ICA[place] Care Teams Apparel Stock Checker Relationship Specialty Start Date End Date Adria Rubio MD [address] [place] [id number] PCP - General Internal Medicine 08/04/24
--- OUTSIDE RECORDS SUMMARY | 2024-12-30 16:34 | XMS_ITS | Clinical Summary ---
Author Organization [facility], Address [address] [place] [address] [place] [address] Phone Care Team Providers Care Clothes Shaker Name Role Phone OrtizAlbert martin Primary Care Provider [phone] Allergies Active Allergy Reactions Criticality Noted Date [...] Colonoscopy 2010 Colorectal Cancer Screening: Sigmoidoscopy 2010 Pneumococcal Vaccine: 50+ Ye ars (1 of - PCV) 12/13/2011 Influenza Vaccine (Season Ended) 2025 Hepatitis B Vaccine Aged Out No longe r eligible based on patient's age to complete this topic Insurance [employer] Care Teams Clothes Shaker Relationship Specialty Start Date End Date Albert Ortiz DO [address] [place] [id number] PCP - General Nephrology 01/10/21
--- OUTSIDE RECORDS SUMMARY | 2024-12-30 16:34 | XMS_ITS ---
Author Organization [facility] Address [address] [place] [address] Care Team Providers Care Awake Overnight Counselor Name Role Phone Adria Rubio MD Primary Care Provider [phone] Active Problems Problem Noted Date Diagnosed Date Rotator cuff tendonitis 09/30/2024 Sacroiliitis ([facility] V24) 09/30/2024 Segmental and somatic dysfunction of sacral tiki on 09/30/2024 Chronic pain of right hip 09/30/2024 Greater trochanteric bursitis 09/30/2024 Lumbar spondylosis 06/30/2024 Back pain 06/30/2024 Malignant neoplasm of left b reast ([facility] V24, [facility] V28) 06/30/2024 Chest pain 06/30/2024 Chronic cough 06/30/2024 History of colon polyps 06/30/2024 Neuropathy 06/30/2024 Pneumonitis 06/30/2024 Pulmonary embolism ([facility] V24, [facility] V28) Pulmonary nodules 06/30/2024 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[facility] V24, [facility] V28) Cancer Staging:Pathologic:Stage IIIB(pT2b, pN1, cM0) - [...] Dose Given/Prescribed Total Dose Given/Prescribed Technique Rosalina gregorio postop 4 5 36 25 of 25 180 cGy / 180 cGy 4,500 cGy / 4, 500 cGy 2 arc VMAT
[2024-12-30 16:41] LABS: Bacteria Urine None Seen (None Seen); Hyaline Casts Urine 0-2 /LPF (0-2); Squamous Epithelial Cell Urine 0-2 /HPF (0-2); WBC Urine 0-5 /HPF (0-5)
--- NOTE | 2024-12-30 18:17 | PC.NURSE ---
Fluids infused BP taken, BP of 111/52, pt reports no pain at this time.
[2024-12-30 18:19] LABS: B Type Natriuretic Peptide 138 pg/mL (<100); Troponin-I High Sensitivity 110.7 ng/L (<3.5-17.0)
--- NOTE | 2024-12-30 18:20 | ECG_ITS ---
Test Reason : elevated troponin Blood Pressure : */* mmHG Vent. Rate : 91 BPM Atrial Rate : 91 BPM P-R Int : 174 ms QRS Dur : 68 ms QT Int : 292 ms P-R-T Axes : 30 -24 -4 degrees QTcB Int : 359 ms Sinus rhythm with Premature ventricular complexes or Fusion complexes Minimal voltage criteria for LVH, may be normal variant ( R in aVL ) Nonspecific T wave abnormality Abnormal ECG When compared with ECG of 30-Dec-2024 14:14, Fusion complexes are now Present Premature ventricular complexes are now Present Referred By: Lulu Lawrence Electronically Signed By: Molina Box
--- NOTE | 2024-12-30 18:21 | PC.NURSE ---
2 BP taken after fluids, BP 122/62
[2024-12-30 20:00] LABS: Troponin-I High Sensitivity 133.6 ng/L (<3.5-17.0)
--- NOTE | 2024-12-30 20:14 | P.HPHOSP_ITS ---
History of Present Illness Date of Service: 12/30/24 Chief Complaint: Abdominal pain, fever This is a 64-year-old female with pertinent history of metastatic gallbladder adenocarcinoma s/p chemotherapy, radiation and surgery (partial hepatectomy, cholecystectomy and lymphadenectomy), left breast moderately differentiated carcinoma s/p chemotherapy and radiation, history of PE/DVT non compliant with Eliquis, gastroesophageal reflux disease, peripheral neuropathy, who presents to the emergency department for evaluation of abdominal pain and fever. Patient states she has had chronic upper abdominal discomfort that has been ongoing for months. This worsened in the last 2 days. It was initially intermittent but progressed to being constant. Also noted to have fevers 2 days prior to presentation. Denies nausea, vomiting, diarrhea, cough. Patient states she was previously on Eliquis for history of blood clots but stopped taking it 2 weeks ago as she ran out of it. Patient was seen outpatient on the day of presentation and she was found to be tachycardic, tachypneic, febrile and sent to the ER for further evaluation. She denies palpitations, changes in urinary or bowel habits. In the emergency department, imaging positive for PE in the segmental left lower lobe pulmonary artery. Also imaging with findings suggesting progressive metastatic disease with increasing number of hepatic lesions and numerous bilateral pulmonary nodules. Review of Systems 2 Constitutional: Constitutional: Reports chills, Reports fatigue, Reports fever(s), Reports malaise and Reports weakness Cardiovascular: Cardiovascular: Reports no additional cardiovascular complaints Respiratory: Respiratory: Reports no additional respiratory complaints Gastrointestinal: Gastrointestinal: Reports abdominal pain Genitourinary: Genitourinary: Reports no additional female genitourinary complaints Neurologic: Reports weakness Endocrine: Endocrine: Reports fatigue [facility] Medical History Pulmonary embolism Pulmonary nodules Pneumonitis Chest pain Chronic cough Vaginal yeast infection Breast lump on right side at 5 o'clock position History of colon polyps Breast cancer, left (~10/2016) Spondylosis Back pain Neuropathy Family History Mother No problems noted. Father No problems noted. Other No family history of cancer Surgical History Hx of cholecystectomy History of esophagogastroduodenoscopy (EGD) History of lumpectomy of right breast (06/26/22) Hx of vein stripping Hx of colonoscopy (~10/2018) S/P breast lumpectomy Social History Household Members: Family and Children Housing: House Are you a primary childcare teacher to a significant other at home: No Do you presently have visiting nurse or other home services: No Unable to assess alcohol history related to: Unknown Alcohol intake: never Comment: med with oxycodone 5 mg po in PACU Patient Tobacco Use Status: Never used Tobacco Smoked in Last 30 Days: No e-Cigarette/Vaping Use: Never Used Use of substances other than those prescribed or required for medical reasons: Unknown Advance Directives: No Advance Directives Information Provided: No Do you have a plan to hurt others: No Plan Patient : No service: No Current occupational status: disabled Current occupation: rt handed Cognitive needs: No Hearing needs: No Vision needs: Yes Meds Allergies Allergy/AdvReac Type Severity Reaction Status Date / Time Penicillins [PENICILLINS] Allergy Severe ANAPHYLAXIS, Verified 12/30/24 14:00 swelling streptomycin [STREPTOMYCIN] Allergy Severe ANAPHYLAXIS Verified 12/30/24 11:38 Home Medications ?Medication ?Instructions ?Recorded ?Confirmed ?Last Taken ?Type multivitamin-iron sulfate 15 1 tab PO DAILY 12/30/24 12/30/24 12/28/24 History mg-folic acid 400 mcg tablet (Tab-A-Marissa Multivitamin w-iron) omeprazole 20 mg capsule,delayed 20 mg PO BID@0630,1630 12/30/24 12/30/24 12/28/24 History release Physical Exam 2 Vital Signs and Narrative: Vital Signs: Last Vital Signs Temp 98.4 F 12/30/24 16:16 Pulse 94 12/30/24 18:19 Resp 22 H 12/30/24 18:19 BP 122/62 12/30/24 18:19 Pulse Ox 98 12/30/24 18:19 O2 Del Method Room Air 12/30/24 18:18 BMI result Body Mass Index 27.2 Middle-aged female lying in bed in no distress Neck supple, no JVD Regular rate and rhythm, S1-S2 heard Regular breath sounds bilaterally, no wheezing or crackles appreciated Abdomen with scars, soft, nontender, no guarding, no rigidity Patient is awake, alert and oriented to self, place, time and person ; no focal motor deficit Psych: Normal mood No pedal edema Results Labs 12/30/24 20:36 12/30/24 14:05 Labs: Laboratory Results - last 24 hr 12/30/24 12/30/24 12/30/24 14:05 16:21 17:45 MCV 91.9 MCH 31.6 MCHC 34.4 RDW 13.4 Plt Count 113 L MPV 10.5 Immature Gran % (Auto) 0.5 H Neut % (Auto) 80.0 H Lymph % (Auto) 9.4 L Sunflower % (Auto) 9.6 Eos % (Auto) 0.2 Baso % (Auto) 0.3 Lymph # (Auto) 1.3 Sunflower # (Auto) 1.3 H Eos # (Auto) 0.0 Baso # (Auto) 0.0 Abs Immat Gran (auto) 0.06 H Absolute Neuts (auto) 10.7 H Absolute Nucleated RBC 0.000 Nucleated RBC % (auto) 0.0 Hold Purple Top SEE NOTE Anion Gap 13 Estim Creat Clear Calc 68.2 Estimated GFR > 60 Random Glucose 111 Lactic Acid 1.4 Calcium 9.0 Magnesium 1.9 Total Bilirubin 0.7 Direct Bilirubin 0.3 AST 103 H ALT 77 H Alkaline Phosphatase 178 H B-Natriuretic Peptide 138 H Total Protein 8.1 H Albumin 3.9 Lipase 17 Urine Color Yellow Urine Appearance Clear Urine pH 7.0 Ur Specific [place] 1.010 Urine Protein Negative Urine Glucose (UA) Negative Urine Ketones Negative Urine Blood Trace H Urine Nitrite Negative Ur Leukocyte Esterase Negative Urine RBC 3-5 H Urine WBC 0-5 Ur Squamous Epith Cells 0-2 Urine Bacteria None Seen Hyaline Casts 0-2 Ethyl Alcohol < 10 Influenza Type A (PCR) NEGATIVE Influenza Type B (PCR) NEGATIVE RSV RNA Qual (PCR) NEGATIVE SARS-CoV-2 RNA (RT-PCR) NEGATIVE Imaging Radiologist's Impressions: Impressions Chest X-Ray 12/30/24 14:14 IMPRESSION: Elevated right hemidiaphragm with adjacent subsegmental atelectasis or pneumonia. Electronically signed by: Andi Tan MD 12/30/2024 02:45 PM EDT Chest CTA 12/30/24 14:23 IMPRESSION: 1. POSITIVE examination for pulmonary embolus in segmental left lower lobe pulmonary arteries. These were not present previously. Low clot burden. No right heart strain or reflux of contrast into the IVC. 2. There is no evidence of acute aortic syndrome. 3. Extensive innumerable metastatic lesions present throughout the liver. These have extensively worsened when compared with most recent PET CT from [facility] 09/29/2024. 4. Numerous bilateral pulmonary nodules measuring up to 6 mm, highly suspicious for metastases. The majority of these are new or enlarged. 5. Subcentimeter mediastinal and bilateral hilar lymph nodes measuring up to 1.1 cm. 6. Additional ancillary findings as discussed in the body of the report. Electronically signed by: Galdino Mcneill MD 12/30/2024 05:08 PM EDT Assessment and Plan (1) Pulmonary embolism: Status: Acute (2) Metastasis from gallbladder cancer: Status: Acute Plan This is a 64-year-old female with pertinent history of metastatic gallbladder adenocarcinoma s/p chemotherapy, radiation and surgery (partial hepatectomy, cholecystectomy and lymphadenectomy), 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 #. Acute submassive PE: Will admit patient with cardiac monitoring and therapeutic lovenox. Patient stopped taking p.o. Eliquis 2 weeks ago she ran out of it and did not refill her prescription medication. Closely monitor hemodynamics and transition to p.o. Eliquis prior to discharge. #. Intractable abdominal pain with imaging evidence of progression of metastatic gallbladder adenocarcinoma: IV opioids p.r.n. for analgesia. Consulting Oncology #. SIRS+: Fever could be due to underlying cancer and PE. Initiating empiric broad-spectrum IV antibiotics in a patient who is immunocompromised. Follow cultures. #. Gastroesophageal reflux disease: On PPI #. Peripheral neuropathy: On gabapentin Med rec pending DVT prophylaxis: Therapeutic Lovenox Full code. Discussed with patient at bedside Admit as inpatient and will require two night minimum hospital stay for IV antibiotics, close hemodynamic monitoring with anticoagulation (as above), which is not possible in a lesser acute setting. Specialist consult pending Quality Stroke Does the patient have a stroke diagnosis?: No VTE Prior VTE?: No VTE Risk Level:: Medical - moderate - high VTE Device Contraindication: Treatment Not Indicated VTE Drug Contraindication: N/A - Med Ordered
[2024-12-30] MEDS: Enoxaparin Sodium 80 MG/0.8 ML SYRINGE 70 MG SUBCUT (20:30)
[2024-12-30 20:44] LABS: Hemoglobin 10.8 g/dl (12.0-16.0); Mean Corpuscular HGB Conc 33.8 g/dl (31.0-35.0); Mean Corpuscular Hemoglobin 30.9 pg (27.0-33.0); Mean Corpuscular Volume 91.7 fL (80.0-98.0); Mean Platelet Volume 10.6 fL (9.4-12.3); Platelet Count 112 X10*3/uL (160-400); Red Blood Count 3.49 X10*6/uL (4.20-5.50); Red Cell Distribution Width 13.5 % (11.0-16.0); White Blood Count 13.6 X10*3/uL (4.8-10.8)
--- NOTE | 2024-12-30 22:07 | PHA.MEDREC ---
Addendum entered by Octavio Foster, [facility] 12/31/24 12:55: Also, per Dr. Doan's note, pt is on raloxifen but [facility] said the last fern [place]er date was 04/21/24. An rx was sent in on 08/18/24 for 90 day supply but it was never picked up. Addendum entered by Octavio Foster, [facility] 12/31/24 12:40: Called [facility] pharmacy [phone] and spoke to staff who said they do not fill any meds for cancer or liver for patient. I went to the ONC dept and spoke to Vickie who printed out patient's office visit with Dr. Doan on 12/30/[address]. [address] Doan's note on 12/30/24, patient was prescribed abemaciclib 150 mg bid but the insurance denied it after several appeals. Dr. Doan then send a rx of everolimus 10 [facility] daily [id number] and office is working on prior authorization for it. Original Note: Pharmacy Consult ? Medication Reconciliation Pharmacy has completed the medication reconciliation. Spoke to patient to confirm med list. Patient was able to confirm her medications. Patient states she last had Chemo in September and she should be on something for her liver, however she couldn't tell me the name or the dosing of the medication. Patient states she has bee taring to fill her liver medications from [facility], however the they are waiting on a prior auth. Will have morning med rec [facility] reach out to Dr. Doan to confirm what medication patient should be on.
[2024-12-30] MEDS: cefEPime HCl/D5W 2 GM/50 ML PIGGYBACK IV (22:36)
--- NOTE | 2024-12-30 22:40 | PC.NURSE ---
pt reports 5/10 pain chronic at previous surgical sites, states does not need intervention at this time. vitals as documented. abx infusing per mar. call boateng within reach. pt was switched to hospital bed by PCT.
--- NOTE | 2024-12-30 23:00 | PC.NURSE ---
pt/inr lab hemolyzed per lab, medical lab scientist at bedside now to redraw. pt given ice water per request.
[2024-12-30] MEDS: vancomycin HCL 1,000 MG, vancomycin HCL 750 MG in 0.9 % Sodium Chloride 500 ML 267.5 MG IV (23:15)
[2024-12-30] MEDS: 0.9 % Sodium Chloride Flush 3 ML SYRINGE IVFLUSH (23:17)
[2024-12-30 23:19] LABS: INTERNATIONAL NORM RATIO 1.3 (0.9-1.1); Prothrombin Time 14.9 SEC (10.9-12.4)
[2024-12-30 23:21] LABS: Partial Thromboplastin Time 36.9 SEC (26.0-36.8)
[2024-12-31] VITALS (8 sets, daily range): BP systolic 112–138; BP diastolic 55–96; PULSE 102–112; RESP 16–24; TEMP 36.8–38.4; O2SAT 97–99; BMI 28.7; BMI 29.0
--- NOTE | 2024-12-31 00:56 | MHC.EDTECH ---
This pct assumed care of Patient at 2300 ,vitals taken ,Patient up to bathroom ,void and ambulated back to bed ,No apparent distress noted ,Plan of care continue ,Call boateng within Pt reach .
--- NOTE | 2024-12-31 01:54 | PC.NURSE ---
pt states she is upset about BP cuff being off of arm and not being monitored q15 min as that's what they were doing this morning. educated pt that BP was checked 0047 and will be checked q4 hour per MD order. educated pt is on cardiac monitoring per MD/admission orders. pt states she was ringing her call boateng and no one answered however tech states call boateng was answered, this RN was with another patient. pt was previously assisted to the bathroom at 0100, this RN had stopped vanco infusion at that time so pt can ambulate to the bathroom and started infusion upon return to room. pt is axox4 and ambulates with steady gait. pt states the other two nurses were better than you, it's because you're so young. pt requested this RN to not be primary RN, charge operator made aware of pt request and asked for patient to be moved to another section, charge operator refused. pt continues to verbalize she is upset, charge operator called to bedside to speak with patient and she did. no further complaints/requests. pt is resting in bed with call boateng within reach.
--- NOTE | 2024-12-31 02:00 | MHC.EDTECH ---
0200 rounding done ,warm blanket given ,call boateng within Patient reach .
--- NOTE | 2024-12-31 03:22 | PC.NURSE ---
pulse ox monitor changed to adult sticker monitor for pt comfort. pt was sleeping upon entering room, easily arousable to name. call boateng within reach.
--- NOTE | 2024-12-31 03:40 | MHC.EDTECH ---
Patient does not ring her call boateng ,she yell out anybody their ,each time this Patient yelled out this Pct enter Patient room and assist Patient .
--- NOTE | 2024-12-31 04:07 | MHC.EDTECH ---
0400 rounding done ,Pt awake vitals taken ,RN [place] is aware that Patient has a slight temp ,Patient up was escorted to bathroom ,void ,was escorted by to bed ,And was re connected to cardiac catheterization technician ,Patient asked for tooth brush and tooth Pasted ,was given fresh water with no ice ,Call boateng within Pt reach .
--- NOTE | 2024-12-31 04:42 | PC.NURSE ---
this RN with patient upon return from bathroom approx 0415, PCT notified of temp 100.2F oral, pt requested no rectal temp to be obtained. pt repositioned in bed HOB elevated. pt refuses MD Randolph aware. recheck oral temp 100F. this RN left room just now, have been conversating with patient who apologized about previous incident, expressed struggles with health and her past. pt is pleasant. resp are even and unlabored, not tachypneic, monitor resp at 16 breaths/min which are accurate with this RN counting. nad. sats 99% on RA. call boateng within reach.
[2024-12-31] MEDS: cefEPime HCl/D5W 2 GM/50 ML PIGGYBACK IV ×3 (06:41→21:10)
--- NOTE | 2024-12-31 07:04 | MHC.EDTECH ---
pt can not have pork products due to zoroastrian beliefs. Kitchen called and reed aware.
--- NOTE | 2024-12-31 07:18 | PHA.PROG ---
Admission Date/Time: December 30, 2024 20:12 Indication: Sepsis Weight in k.3 kg Adjusted body weight in Kg: [place] body weight in Kg: Obesity Dosing Indication % IBW: BMI 28.8 Serum Creatinine - Last 168 Hours 12/30/24 14:05 Creatinine 0.76 Estimated CrCl and GFR - Last 168 Hours 12/30/24 14:05 Estim Creat Clear Calc 68.2 Estimated GFR > 60 Vancomycin Loading Dose: 1750mg X1 Current Vancomycin Dosing Regimen: 1000mg Q12H Vancomycin Monitoring using AUC goal of 400 - 600 range with trough as surrogate marker: 574 Date and Time for next Vancomycin Level to be drawn: 01/01 @0900 Pharmacist Comments on Vancomycin Plan: Pt BMI is a bit elevated, SCr stable.. starting with 1000mg Q12H to target trough of 18.3 per indication. To be readjusted tomorrow as needed if SCr changes + trough. Vancomycin dosing will take advantage of [employer] as a clinical decision support tool that uses Bayesian modeling to calculate individual patient's pharmacokinetic parameters and forecast the patient's drug concentration time course with the target goal AUC 24 range of 400 - 600 mg/L/hr.
--- NOTE | 2024-12-31 07:29 | PC.NURSE ---
ambulatory to BR w/o diff. no SOB noted. skin pwd.
[2024-12-31] MEDS: Enoxaparin Sodium 40 MG/0.4 ML SYRINGE 70 MG SUBCUT (08:38)
--- NOTE | 2024-12-31 09:01 | MHC.CLN ---
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 CURRENTLY IN ED. DIET=REGULAR. COMPREHENSIVE NUTRITION ASSESSMENT TO BE COMPLETED UPON HOSPITAL ADMISSION.
[2024-12-31 09:14] LABS: Adenovirus PCR Not Detected (Not Detect.); Bordetella parapertussis PCR Not Detected (Not Detect.); Bordetella pertussis PCR Not Detected (Not Detect.); Chlamydia pneumoniae PCR Not Detected (Not Detect.); Coronavirus 229E PCR Not Detected (Not Detect.); Coronavirus HKU1 PCR Not Detected (Not Detect.); Coronavirus NL63 PCR Not Detected (Not Detect.); Coronavirus OC43 PCR Not Detected (Not Detect.); Human metapneumovirus PCR Not Detected (Not Detect.); Influenza A PCR Not Detected (Not Detect.); Influenza B PCR Not Detected (Not Detect.); Mycoplasma pneumoniae PCR Not Detected (Not Detect.); Parainfluenza 1 PCR Not Detected (Not Detect.); Parainfluenza 2 PCR Not Detected (Not Detect.); Parainfluenza 3 PCR Not Detected (Not Detect.); Parainfluenza 4 PCR Not Detected (Not Detect.); RSV PCR Not Detected (Not Detect.); Rhino/Enterovirus PCR Not Detected (Not Detect.)
[2024-12-31 09:25] LABS: Hematocrit 28.8 % (37.0-47.0); Hemoglobin 9.7 g/dl (12.0-16.0); Mean Corpuscular HGB Conc 33.7 g/dl (31.0-35.0); Mean Corpuscular Hemoglobin 30.7 pg (27.0-33.0); Mean Corpuscular Volume 91.1 fL (80.0-98.0); Mean Platelet Volume 10.3 fL (9.4-12.3); Platelet Count 110 X10*3/uL (160-400); Red Blood Count 3.16 X10*6/uL (4.20-5.50); Red Cell Distribution Width 13.4 % (11.0-16.0); White Blood Count 11.2 X10*3/uL (4.8-10.8)
[2024-12-31 09:27] LABS: Estimated Glomerular Filt Rate > 60
[2024-12-31 09:30] LABS: Alanine Aminotransferase 63 U/L (0-31); Albumin Level 3.1 g/dL (3.5-5.0); Alkaline Phosphatase 140 U/L (39-117); Anion Gap 12 (12-20); Aspartate Amino Transferase 72 U/L (5-31); Bilirubin Total 0.8 mg/dL (0.0-1.0); Blood Urea Nitrogen 10 mg/dL (9-16); Calcium 8.2 mg/dL (8.4-10.2); Carbon Dioxide 22 mmol/L (22-29); Chloride 104 mmol/L (96-108); Creatinine Clr Calc Pharmacy 78.3; Estimated Glomerular Filt Rate > 60; Glucose Random 174 mg/dL (60-115); Potassium 3.5 mmol/L (3.3-5.1); Sodium 134 mmol/L (135-145); Total Protein 6.6 g/dL (6.5-8.0)
[2024-12-31 10:15] LABS: Influenza A H1 PCR Not Detected (Not Detect.); Influenza A H1-2009 PCR Not Detected (Not Detect.); Influenza A H3 PCR Not Detected (Not Detect.); SARS-CoV-2 PCR Not Detected (Not Detect.)
--- NOTE | 2024-12-31 10:53 | MHC.CM.PN ---
PT LIVES ALONE WILL NEED A RIDE HOME WHEN DCD AND IS REQUESTING A REFERRAL TO [facility]
[2024-12-31] MEDS: vancomycin HCL 1,000 MG in 0.9 % Sodium Chloride 250 ML 270 MG IV ×2 (11:27→22:42)
--- NOTE | 2024-12-31 11:46 | P.PNIM_ITS ---
Subjective Subjective Date of Service: 12/31/24 Interval History: Seen and evaluated this morning Feels ok, no significant pain reporting fever and chills no other events Review of Systems Review of Systems: Yes all other systems are reviewed and are negative Physical Exam 2 Vital Signs: Vital Signs: Last Vital Signs Temp 99.8 F 12/31/24 06:25 Pulse 104 H 12/31/24 06:25 Resp 16 12/31/24 06:25 BP 113/55 L 12/31/24 06:25 Pulse Ox 97 12/31/24 06:25 O2 Del Method Room Air 12/31/24 06:25 BMI result Body Mass Index 28.7 Const: Other: Constitutional : Awake, interactive, not in distress Neck : Normal inspection, Supple Cardiovascular : RRR, no JVP, no lower extremity edema Respiratory : fair bilateral air entry, no crackles, wheezes or rhonchi Gastrointestinal: soft, lax, Normal bowel sounds, mild ruq tenderness but no surgical signs Skin : Warm, Dry Neurological : Alert & oriented x3, No focal deficit Objective Data Active Medications Acetaminophen (Acetaminophen 325 Mg Tablet) 650 mg PO Q6H PRN PRN Reason: Pain, Mild 1-3,fever,headache Calcium Carbonate (Calcium Carbonate 750 Mg Tab.Chew) 750 mg PO Q4H PRN PRN Reason: Heartburn Enoxaparin Sodium (Enoxaparin Sodium 40 Mg/0.4 Ml Syringe) 70 mg SUBCUT Q12H [facility] Last Admin: 12/31/24 08:38 Dose: 70 mg Documented By: MARVA Cefepime HCl (Maxipime) 2 gm in 50 mls @ 100 mls/hr IV Q8H [facility] Last Admin: 12/31/24 06:41 Dose: 100 mls/hr Documented By: JOAN Vancomycin HCl 1,000 mg/ (Sodium Chloride) 270 mls @ 270 mls/hr IV Q12H [facility] Last Admin: 12/31/24 11:27 Dose: 270 mls/hr Documented By: SCIRPRENE Magnesium Hydroxide (Milk Of Magnesia 30 Ml Oral.Susp) 30 ml PO DAILY PRN PRN Reason: Constipation Melatonin (Melatonin 3 Mg Tablet) 6 mg PO BEDTIME PRN PRN Reason: Insomnia Morphine Sulfate (Morphine Sulfate 4 Mg/Ml Cartridge) 4 mg IVPUSH Q4H PRN; Protocol PRN Reason: Pain, Severe (Pain Scale 7-10) Ondansetron HCl (Ondansetron Hcl 4 Mg/2 Ml Vial) 4 mg IVPUSH Q8H PRN PRN Reason: Nausea and Vomiting Pharmacy Consult (Consult Rx Vancomycin Dosing) 1 each MISCELLANE DAILY PRN PRN Reason: Consult order Sodium Chloride (0.9 % Sodium Chloride Flush 3 Ml Syringe) 3 ml IVFLUSH QSHIFT [facility] Last Admin: 12/31/24 08:38 Dose: Not Given Documented By: MARVA Non-Admin Reason: Med Not Available Labs 12/31/24 09:05 12/31/24 09:05 Labs: Laboratory Results - last 24 hr 12/30/24 12/30/24 12/30/24 14:05 16:21 17:45 MCV 91.9 MCH 31.6 MCHC 34.4 RDW 13.4 Plt Count 113 L MPV 10.5 Immature Gran % (Auto) 0.5 H Neut % (Auto) 80.0 H Lymph % (Auto) 9.4 L Dent % (Auto) 9.6 Eos % (Auto) 0.2 Baso % (Auto) 0.3 Lymph # (Auto) 1.3 Dent # (Auto) 1.3 H Eos # (Auto) 0.0 Baso # (Auto) 0.0 Abs Immat Gran (auto) 0.06 H Absolute Neuts (auto) 10.7 H Absolute Nucleated RBC 0.000 Nucleated RBC % (auto) 0.0 Hold Purple Top SEE NOTE PT INR APTT Anion Gap 13 Estim Creat Clear Calc 68.2 Estimated GFR > 60 Random Glucose 111 Lactic Acid 1.4 Calcium 9.0 Magnesium 1.9 Total Bilirubin 0.7 Direct Bilirubin 0.3 AST 103 H ALT 77 H Alkaline Phosphatase 178 H B-Natriuretic Peptide 138 H Total Protein 8.1 H Albumin 3.9 Lipase 17 Urine Color Yellow Urine Appearance Clear Urine pH 7.0 Ur Specific [place] 1.010 Urine Protein Negative Urine Glucose (UA) Negative Urine Ketones Negative Urine Blood Trace H Urine Nitrite Negative Ur Leukocyte Esterase Negative Urine RBC 3-5 H Urine WBC 0-5 Ur Squamous Epith Cells 0-2 Urine Bacteria None Seen Hyaline Casts 0-2 Ethyl Alcohol < 10 Respiratory Panel Alonso Adenovirus (Rapid PCR) B.pert (TEM-PCR) B.parapertussis DNA PCR C. pneumoniae DNA (PCR) Coronavirus OC43 (PCR) Coronavirus HKU1 (PCR) Coronavirus 229E (PCR) Coronavirus NL63 (PCR) Human Metapneumovir PCR Influenza A (RT-PCR) Influenza A (H1) PCR Influ A () PCR Influenza A (H3) PCR Influenza Type A (PCR) NEGATIVE Influenza B (RT-PCR) Influenza Type B (PCR) NEGATIVE M. pneumoniae (PCR) Parainfluenza 1 (PCR) Parainfluenza 2 (PCR) Parainfluenza 3 (PCR) Parainfluenza 4 (PCR) RSV (PCR) RSV RNA Qual (PCR) NEGATIVE Entero/Rhino (PCR) SARS-CoV-2 RNA (RT-PCR) NEGATIVE 12/30/24 12/30/24 12/30/24 18:41 20:36 22:57 MCV 91.7 MCH 30.9 MCHC 33.8 RDW 13.5 Plt Count 112 L MPV 10.6 Immature Gran % (Auto) Neut % (Auto) Lymph % (Auto) Dent % (Auto) Eos % (Auto) Baso % (Auto) Lymph # (Auto) Dent # (Auto) Eos # (Auto) Baso # (Auto) Abs Immat Gran (auto) Absolute Neuts (auto) Absolute Nucleated RBC 0.000 Nucleated RBC % (auto) 0.0 Hold Purple Top PT 14.9 H INR 1.3 H APTT 36.9 H Anion Gap Estim Creat Clear Calc Estimated GFR Random Glucose Lactic Acid Calcium Magnesium Total Bilirubin Direct Bilirubin AST ALT Alkaline Phosphatase B-Natriuretic Peptide Total Protein Albumin Lipase Urine Color Urine Appearance Urine pH Ur Specific [place] Urine Protein Urine Glucose (UA) Urine Ketones Urine Blood Urine Nitrite Ur Leukocyte Esterase Urine RBC Urine WBC Ur Squamous Epith Cells Urine Bacteria Hyaline Casts Ethyl Alcohol Respiratory Panel Alonso See Note Adenovirus (Rapid PCR) Not Detected B.pert (TEM-PCR) Not Detected B.parapertussis DNA PCR Not Detected C. pneumoniae DNA (PCR) Not Detected Coronavirus OC43 (PCR) Not Detected Coronavirus HKU1 (PCR) Not Detected Coronavirus 229E (PCR) Not Detected Coronavirus NL63 (PCR) Not Detected Human Metapneumovir PCR Not Detected Influenza A (RT-PCR) Not Detected Influenza A (H1) PCR Not Detected Influ A () PCR Not Detected Influenza A (H3) PCR Not Detected Influenza Type A (PCR) Influenza B (RT-PCR) Not Detected Influenza Type B (PCR) M. pneumoniae (PCR) Not Detected Parainfluenza 1 (PCR) Not Detected Parainfluenza 2 (PCR) Not Detected Parainfluenza 3 (PCR) Not Detected Parainfluenza 4 (PCR) Not Detected RSV (PCR) Not Detected RSV RNA Qual (PCR) Entero/Rhino (PCR) Not Detected SARS-CoV-2 RNA (RT-PCR) Not Detected 12/31/24 12/31/24 12/31/24 09:05 09:05 09:05 MCV 91.1 MCH 30.7 MCHC 33.7 RDW 13.4 Plt Count 110 L MPV 10.3 Immature Gran % (Auto) Neut % (Auto) Lymph % (Auto) Dent % (Auto) Eos % (Auto) Baso % (Auto) Lymph # (Auto) Dent # (Auto) Eos # (Auto) Baso # (Auto) Abs Immat Gran (auto) Absolute Neuts (auto) Absolute Nucleated RBC 0.000 Nucleated RBC % (auto) 0.0 Hold Purple Top PT INR APTT Anion Gap 12 Estim Creat Clear Calc 78.3 76.0 Estimated GFR > 60 > 60 Random Glucose 174 H Lactic Acid Calcium 8.2 L D Magnesium Total Bilirubin 0.8 Direct Bilirubin AST 72 H ALT 63 H Alkaline Phosphatase 140 H B-Natriuretic Peptide Total Protein 6.6 Albumin 3.1 L Lipase Urine Color Urine Appearance Urine pH Ur Specific [place] Urine Protein Urine Glucose (UA) Urine Ketones Urine Blood Urine Nitrite Ur Leukocyte Esterase Urine RBC Urine WBC Ur Squamous Epith Cells Urine Bacteria Hyaline Casts Ethyl Alcohol Respiratory Panel Alonso Adenovirus (Rapid PCR) B.pert (TEM-PCR) B.parapertussis DNA PCR C. pneumoniae DNA (PCR) Coronavirus OC43 (PCR) Coronavirus HKU1 (PCR) Coronavirus 229E (PCR) Coronavirus NL63 (PCR) Human Metapneumovir PCR Influenza A (RT-PCR) Influenza A (H1) PCR Influ A (H1/09) PCR Influenza A (H3) PCR Influenza Type A (PCR) Influenza B (RT-PCR) Influenza Type B (PCR) M. pneumoniae (PCR) Parainfluenza 1 (PCR) Parainfluenza 2 (PCR) Parainfluenza 3 (PCR) Parainfluenza 4 (PCR) RSV (PCR) RSV RNA Qual (PCR) Entero/Rhino (PCR) SARS-CoV-2 RNA (RT-PCR) Assessment and Plan (1) Metastatic disease: Status: Acute (2) Pulmonary embolism: Status: Acute (3) Metastatic cancer to liver: Status: Acute (4) Elevated troponin: Status: Acute (5) Fever: Status: Acute (6) Metastasis from gallbladder cancer: Status: Acute Plan This is a 64-year-old female with pertinent history of metastatic gallbladder adenocarcinoma s/p chemotherapy, radiation and surgery (partial hepatectomy, cholecystectomy and lymphadenectomy), 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 # Acute submassive PE cardiac monitoring therapeutic lovenox. Closely monitor hemodynamics transition to p.o. Eliquis prior to discharge. # Intractable abdominal pain with imaging evidence of progression of metastatic gallbladder adenocarcinoma IV opioids p.r.n. for analgesia Consulting Oncology # SIRS in a patient who is immunocompromised Fever could be due to underlying cancer and PE empiric broad-spectrum IV Cefepime and Vanco Follow cultures # Gastroesophageal reflux disease On PPI # Peripheral neuropathy On gabapentin DVT prophylaxis: Therapeutic Lovenox inpatient overnight hospital stay for IV antibiotics, close hemodynamic monitoring with anticoagulation (as above) pending final cultures , which is not possible in a lesser acute setting. Specialist consult pending Quality Stroke Does the patient have a stroke diagnosis?: No VTE Prior VTE?: No VTE Risk Level:: Medical - moderate - high VTE Device Contraindication: Treatment Not Indicated VTE Drug Contraindication: N/A - Med Ordered
--- NOTE | 2024-12-31 11:49 | PC.NURSE ---
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 Patient states she has had chronic upper abdominal discomfort that has been ongoing for months. This worsened in the last 2 days. It was initially intermittent but progressed to being constant. Also noted to have fevers 2 days prior to presentation. Patient states she was previously on Eliquis for history of blood clots but stopped taking it 2 weeks ago as she ran out of it. Patient was seen outpatient on the day of presentation and she was found to be tachycardic, tachypneic, febrile and sent to the ER for further evaluation. In the emergency department, imaging positive for PE in the segmental left lower lobe pulmonary artery. Also imaging with findings suggesting progressive metastatic disease with increasing number of hepatic lesions and numerous bilateral pulmonary nodules. Patient alert and oriented. Able to ambulate to the bathroom with a steady gait. 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 Lungs with right base crackles. Abdomen soft, non-tender wit positive bowel sounds. Positive pedal pulses with no edema noted. Pending in-patient bed assignment
--- NOTE | 2024-12-31 14:15 | P.CONCA_ITS ---
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 She is presenting with chest pain and abdominal pain with fever. Abdominal CAT scan is suggestive of progressive metastatic disease as well as lung metastasis. She also has been diagnosed with pulmonary embolism. She is feeling somewhat better. She is frustrated and saying that her medications were not approved by insurance and she has not been using any chemotherapy for 3 weeks and maybe that led to her presentation. She is also saying that she has stopped using apixaban because she just got sick of using medications. Laying flat in bed and denying any other issues currently. She has mild troponin elevation in this setting. [facility] Past Medical History Medical History Pulmonary embolism Pulmonary nodules Pneumonitis Chest pain Chronic cough Vaginal yeast infection Breast lump on right side at 5 o'clock position History of colon polyps Breast cancer, left (~10/2016) Spondylosis Back pain Neuropathy Family History Family History Mother No problems noted. Father No problems noted. Other No family history of cancer Surgical History Surgical History Hx of cholecystectomy History of esophagogastroduodenoscopy (EGD) History of lumpectomy of right breast (06/26/22) Hx of vein stripping Hx of colonoscopy (~10/2018) S/P breast lumpectomy Social History Social History Household Members: Family and Children Housing: House Are you a primary progressive care unit registered nurse to a significant other at home: No Do you presently have visiting nurse or other home services: No Unable to assess alcohol history related to: Unknown Alcohol intake: never Comment: med with oxycodone 5 mg po in PACU Patient Tobacco Use Status: Never used Tobacco Smoked in Last 30 Days: No e-Cigarette/Vaping Use: Never Used Use of substances other than those prescribed or required for medical reasons: Unknown Advance Directives: No Advance Directives Information Provided: No Do you have a plan to hurt others: No Plan Patient : No service: No Current occupational status: disabled Current occupation: rt handed Cognitive needs: No Hearing needs: No Vision needs: Yes Meds Allergies Allergy/AdvReac Type Severity Reaction Status Date / Time Penicillins [PENICILLINS] Allergy Severe ANAPHYLAXIS, Verified 12/30/24 14:00 swelling streptomycin [STREPTOMYCIN] Allergy Severe ANAPHYLAXIS Verified 12/30/24 11:38 Active Medications: Current Medications Acetaminophen (Acetaminophen 325 Mg Tablet) 650 mg PO Q6H PRN PRN Reason: Pain, Mild 1-3,fever,headache Calcium Carbonate (Calcium Carbonate 750 Mg Tab.Chew) 750 mg PO Q4H PRN PRN Reason: Heartburn Enoxaparin Sodium (Enoxaparin Sodium 40 Mg/0.4 Ml Syringe) 70 mg SUBCUT Q12H FOR[facility], [facility] Last Admin: 12/31/24 08:38 Dose: 70 mg Gabapentin (Gabapentin 300 Mg Capsule) 300 mg PO BEDTIME [facility], [facility] Cefepime HCl (Maxipime) 2 gm in 50 mls @ 100 mls/hr IV Q8H [facility], [facility] Last Admin: 12/31/24 13:57 Dose: 100 mls/hr Vancomycin HCl 1,000 mg/ (Sodium Chloride) 270 mls @ 270 mls/hr IV Q12H [facility], [facility] Last Infusion: 12/31/24 12:27 Dose: Infused Magnesium Hydroxide (Milk Of Magnesia 30 Ml Oral.Susp) 30 ml PO DAILY PRN PRN Reason: Constipation Melatonin (Melatonin 3 Mg Tablet) 6 mg PO BEDTIME PRN PRN Reason: Insomnia Morphine Sulfate (Morphine Sulfate 4 Mg/Ml Cartridge) 4 mg IVPUSH Q4H PRN; Protocol PRN Reason: Pain, Severe (Pain Scale 7-10) Omeprazole (Omeprazole 20 Mg Capsule.Dr) 20 mg PO BID@0630,1630 [facility] Ondansetron HCl (Ondansetron Hcl 4 Mg/2 Ml Vial) 4 mg IVPUSH Q8H PRN PRN Reason: Nausea and Vomiting Pharmacy Consult (Consult Rx Vancomycin Dosing) 1 each MISCELLANE DAILY PRN PRN Reason: Consult order Sodium Chloride (0.9 % Sodium Chloride Flush 3 Ml Syringe) 3 ml IVFLUSH QSHIFT [facility] Last Admin: 12/31/24 08:38 Dose: Not Given Home Medications ?Medication ?Instructions ?Recorded ?Confirmed ?Last Taken ?Type multivitamin-iron sulfate 15 1 tab PO DAILY 12/30/24 12/30/24 12/28/24 History mg-folic acid 400 mcg tablet (Tab-A-Marissa Multivitamin w-iron) omeprazole 20 mg capsule,delayed 20 mg PO BID@0630,1630 12/30/24 12/30/24 12/28/24 History release raloxifene 60 mg tablet 60 mg PO DAILY 12/31/24 12/31/24 Unknown History Physical Exam 2 Vital Signs: Vital Signs: Last Vital Signs Temp 99.3 F 12/31/24 12:00 Pulse 102 H 12/31/24 12:00 Resp 24 H 12/31/24 12:00 BP 130/64 12/31/24 12:00 Pulse Ox 98 12/31/24 12:00 O2 Del Method Room Air 12/31/24 12:00 BMI result Body Mass Index 28.7 GENERAL APPEARANCE: in no acute distress, pleasant. NECK: no carotid bruit, no jugular venous distention. SKIN: no suspicious lesions, warm and dry. HEART: no murmurs, regular rate and rhythm. Tachycardic. LUNGS: clear to auscultation bilaterally. ABDOMEN: soft, nontender. EXTREMITIES: no edema. PERIPHERAL PULSES: equal. NEUROLOGIC: No gross deficits, AAO X 3 Objective Labs and Meds 12/31/24 09:05 12/31/24 09:05 Lab results: Laboratory Results - last 24 hr 12/30/24 12/30/24 12/30/24 14:05 16:21 17:45 WBC 13.3 H RBC 3.45 L Hgb 10.9 L Hct 31.7 L MCV 91.9 MCH 31.6 MCHC 34.4 RDW 13.4 Plt Count 113 L MPV 10.5 Immature Gran % (Auto) 0.5 H Neut % (Auto) 80.0 H Lymph % (Auto) 9.4 L [place] % (Auto) 9.6 Eos % (Auto) 0.2 Baso % (Auto) 0.3 Lymph # (Auto) 1.3 [place] # (Auto) 1.3 H Eos # (Auto) 0.0 Baso # (Auto) 0.0 Abs Immat Gran (auto) 0.06 H Absolute Neuts (auto) 10.7 H Absolute Nucleated RBC 0.000 Nucleated RBC % (auto) 0.0 Hold Purple Top SEE NOTE PT INR APTT Sodium 131 L Potassium 4.3 Chloride 98 Carbon Dioxide 24 Anion Gap 13 BUN 14 Creatinine 0.76 Estim Creat Clear Calc 68.2 Estimated GFR > 60 Random Glucose 111 Lactic Acid 1.4 Calcium 9.0 Magnesium 1.9 Total Bilirubin 0.7 Direct Bilirubin 0.3 AST 103 H ALT 77 H Alkaline Phosphatase 178 H Troponin I High Sens 40.2 H 110.7 H* D B-Natriuretic Peptide 138 H Total Protein 8.1 H Albumin 3.9 Lipase 17 Urine Color Yellow Urine Appearance Clear Urine pH 7.0 Ur Specific [place] 1.010 Urine Protein Negative Urine Glucose (UA) Negative Urine Ketones Negative Urine Blood Trace H Urine Nitrite Negative Ur Leukocyte Esterase Negative Urine RBC 3-5 H Urine WBC 0-5 Ur Squamous Epith Cells 0-2 Urine Bacteria None Seen Hyaline Casts 0-2 Ethyl Alcohol < 10 Respiratory Panel Alonso Adenovirus (Rapid PCR) B.pert (TEM-PCR) B.parapertussis DNA PCR C. pneumoniae DNA (PCR) Coronavirus OC43 (PCR) Coronavirus HKU1 (PCR) Coronavirus 229E (PCR) Coronavirus NL63 (PCR) Human Metapneumovir PCR Influenza A (RT-PCR) Influenza A (H1) PCR Influ A (H1/09) PCR Influenza A (H3) PCR Influenza Type A (PCR) NEGATIVE Influenza B (RT-PCR) Influenza Type B (PCR) NEGATIVE M. pneumoniae (PCR) Parainfluenza 1 (PCR) Parainfluenza 2 (PCR) Parainfluenza 3 (PCR) Parainfluenza 4 (PCR) RSV (PCR) RSV RNA Qual (PCR) NEGATIVE Entero/Rhino (PCR) SARS-CoV-2 RNA (RT-PCR) NEGATIVE 12/30/24 12/30/24 12/30/24 18:41 19:27 20:36 WBC 13.6 H RBC 3.49 L Hgb 10.8 L Hct 32.0 L MCV 91.7 MCH 30.9 MCHC 33.8 RDW 13.5 Plt Count 112 L MPV 10.6 Immature Gran % (Auto) Neut % (Auto) Lymph % (Auto) [place] % (Auto) Eos % (Auto) Baso % (Auto) Lymph # (Auto) [place] # (Auto) Eos # (Auto) Baso # (Auto) Abs Immat Gran (auto) Absolute Neuts (auto) Absolute Nucleated RBC 0.000 Nucleated RBC % (auto) 0.0 Hold Purple Top PT INR APTT Sodium Potassium Chloride Carbon Dioxide Anion Gap BUN Creatinine Estim Creat Clear Calc Estimated GFR Random Glucose Lactic Acid Calcium Magnesium Total Bilirubin Direct Bilirubin AST ALT Alkaline Phosphatase Troponin I High Sens 133.6 H* B-Natriuretic Peptide Total Protein Albumin Lipase Urine Color Urine Appearance Urine pH Ur Specific [place] Urine Protein Urine Glucose (UA) Urine Ketones Urine Blood Urine Nitrite Ur Leukocyte Esterase Urine RBC Urine WBC Ur Squamous Epith Cells Urine Bacteria Hyaline Casts Ethyl Alcohol Respiratory Panel Alonso See Note Adenovirus (Rapid PCR) Not Detected B.pert (TEM-PCR) Not Detected B.parapertussis DNA PCR Not Detected C. pneumoniae DNA (PCR) Not Detected Coronavirus OC43 (PCR) Not Detected Coronavirus HKU1 (PCR) Not Detected Coronavirus 229E (PCR) Not Detected Coronavirus NL63 (PCR) Not Detected Human Metapneumovir PCR Not Detected Influenza A (RT-PCR) Not Detected Influenza A (H1) PCR Not Detected Influ A (H1/09) PCR Not Detected Influenza A (H3) PCR Not Detected Influenza Type A (PCR) Influenza B (RT-PCR) Not Detected Influenza Type B (PCR) M. pneumoniae (PCR) Not Detected Parainfluenza 1 (PCR) Not Detected Parainfluenza 2 (PCR) Not Detected Parainfluenza 3 (PCR) Not Detected Parainfluenza 4 (PCR) Not Detected RSV (PCR) Not Detected RSV RNA Qual (PCR) Entero/Rhino (PCR) Not Detected SARS-CoV-2 RNA (RT-PCR) Not Detected 12/30/24 12/31/24 12/31/24 22:57 09:05 09:05 WBC 11.2 H RBC 3.16 L Hgb 9.7 L Hct 28.8 L MCV 91.1 MCH 30.7 MCHC 33.7 RDW 13.4 Plt Count 110 L MPV 10.3 Immature Gran % (Auto) Neut % (Auto) Lymph % (Auto) [place] % (Auto) Eos % (Auto) Baso % (Auto) Lymph # (Auto) [place] # (Auto) Eos # (Auto) Baso # (Auto) Abs Immat Gran (auto) Absolute Neuts (auto) Absolute Nucleated RBC 0.000 Nucleated RBC % (auto) 0.0 Hold Purple Top PT 14.9 H INR 1.3 H APTT 36.9 H Sodium 134 L Potassium 3.5 Chloride 104 Carbon Dioxide 22 Anion Gap 12 BUN 10 Creatinine 0.68 0.70 Estim Creat Clear Calc 78.3 Estimated GFR Random Glucose Lactic Acid Calcium Magnesium Total Bilirubin Direct Bilirubin AST ALT Alkaline Phosphatase Troponin I High Sens B-Natriuretic Peptide Total Protein Albumin Lipase Urine Color Urine Appearance Urine pH Ur Specific [place] Urine Protein Urine Glucose (UA) Urine Ketones Urine Blood Urine Nitrite Ur Leukocyte Esterase Urine RBC Urine WBC Ur Squamous Epith Cells Urine Bacteria Hyaline Casts Ethyl Alcohol Respiratory Panel [place] Adenovirus (Rapid PCR) B.pert (TEM-PCR) B.parapertussis DNA PCR C. pneumoniae DNA (PCR) Coronavirus OC43 (PCR) Coronavirus HKU1 (PCR) Coronavirus 229E (PCR) Coronavirus NL63 (PCR) Human Metapneumovir PCR Influenza A (RT-PCR) Influenza A (H1) PCR Influ A (H1/09) PCR Influenza A (H3) PCR Influenza Type A (PCR) Influenza B (RT-PCR) Influenza Type B (PCR) M. pneumoniae (PCR) Parainfluenza 1 (PCR) Parainfluenza 2 (PCR) Parainfluenza 3 (PCR) Parainfluenza 4 (PCR) RSV (PCR) RSV RNA Qual (PCR) Entero/Rhino (PCR) SARS-CoV-2 RNA (RT-PCR) 12/31/24 12/31/24 09:05 09:05 WBC RBC Hgb Hct MCV MCH MCHC RDW Plt Count MPV Immature Gran % (Auto) Neut % (Auto) Lymph % (Auto) [place] % (Auto) Eos % (Auto) Baso % (Auto) Lymph # (Auto) [place] # (Auto) Eos # (Auto) Baso # (Auto) Abs Immat Gran (auto) Absolute Neuts (auto) Absolute Nucleated RBC Nucleated RBC % (auto) Hold Purple Top PT INR APTT Sodium Potassium Chloride Carbon Dioxide Anion Gap BUN Creatinine Estim Creat Clear Calc 76.0 Estimated GFR > 60 > 60 Random Glucose 174 H Lactic Acid Calcium 8.2 L D Magnesium Total Bilirubin 0.8 Direct Bilirubin AST 72 H ALT 63 H Alkaline Phosphatase 140 H Troponin I High Sens B-Natriuretic Peptide Total Protein 6.6 Albumin 3.1 L Lipase Urine Color Urine Appearance Urine pH Ur Specific [place] Urine Protein Urine Glucose (UA) Urine Ketones Urine Blood Urine Nitrite Ur Leukocyte Esterase Urine RBC Urine WBC Ur Squamous Epith Cells Urine Bacteria Hyaline Casts Ethyl Alcohol Respiratory Panel [place] Adenovirus (Rapid PCR) B.pert (TEM-PCR) B.parapertussis DNA PCR C. pneumoniae DNA (PCR) Coronavirus OC43 (PCR) Coronavirus HKU1 (PCR) Coronavirus 229E (PCR) Coronavirus NL63 (PCR) Human Metapneumovir PCR Influenza A (RT-PCR) Influenza A (H1) PCR Influ A (H1/09) PCR Influenza A (H3) PCR Influenza Type A (PCR) Influenza B (RT-PCR) Influenza Type B (PCR) M. pneumoniae (PCR) Parainfluenza 1 (PCR) Parainfluenza 2 (PCR) Parainfluenza 3 (PCR) Parainfluenza 4 (PCR) RSV (PCR) RSV RNA Qual (PCR) Entero/Rhino (PCR) SARS-CoV-2 RNA (RT-PCR) Imaging Radiologist's impression: Impressions Chest X-Ray 12/30/24 14:14 IMPRESSION: Elevated right hemidiaphragm with adjacent subsegmental atelectasis or pneumonia. Electronically signed by: Andi Tan MD 12/30/2024 02:45 PM EDT Chest CTA 12/30/24 14:23 IMPRESSION: 1. POSITIVE examination for pulmonary embolus in segmental left lower lobe pulmonary arteries. These were not present previously. Low clot burden. No right heart strain or reflux of contrast into the IVC. 2. There is no evidence of acute aortic syndrome. 3. Extensive innumerable metastatic lesions present throughout the liver. These have extensively worsened when compared with most recent PET CT from [facility] 09/29/2024. 4. Numerous bilateral pulmonary nodules measuring up to 6 mm, highly suspicious for metastases. The majority of these are new or enlarged. 5. Subcentimeter mediastinal and bilateral hilar lymph nodes measuring up to 1.1 cm. 6. Additional ancillary findings as discussed in the body of the report. Electronically signed by: Galdino Mcneill MD 12/30/2024 05:08 PM EDT Assessment and Plan (1) Metastatic cancer to liver: Status: Acute (2) Pulmonary embolism: Status: Acute Plan [age] year female with metastatic gallbladder cancer to liver as well as concern for lung metastasis who is here for chest pains. Mild troponin elevation. She has subsegmental left lower lobe pulmonary embolism. She was supposed to be on Eliquis but was not taking it. I have advised her that she should be using Eliquis regularly. Troponin elevation is related to PE. No further workup is required inpatient. Thank you for allowing me to participate in the care of your patient. Please feel free to contact me if you have any questions. Procedures Date of Service Date of Service: 12/31/24
--- NOTE | 2024-12-31 15:37 | MHC.EDTECH ---
This pct assumed care of Patient at 1500 ,vitals taken ,RN aware of Patient high temp and high heart rate ,Patient has an assign bed on med telle ,waiting to be Transported .
[2024-12-31] MEDS: Omeprazole 20 MG CAPSULE.DR PO (16:37)
[2024-12-31] MEDS: 0.9 % Sodium Chloride Flush 3 ML SYRINGE IVFLUSH ×2 (16:38→21:10)
[2024-12-31] MEDS: Enoxaparin Sodium 80 MG/0.8 ML SYRINGE 70 MG SUBCUT (21:08)
[2025-01-01] VITALS (8 sets, daily range): BP systolic 123–158; BP diastolic 52–80; PULSE 100–110; RESP 16–18; TEMP 36.9–38.3; O2SAT 98–99
[2025-01-01] MEDS: Omeprazole 20 MG CAPSULE.DR PO ×2 (05:20→17:21)
[2025-01-01] MEDS: cefEPime HCl/D5W 2 GM/50 ML PIGGYBACK IV ×3 (05:20→21:40)
[2025-01-01 09:32] LABS: MANUAL DIFF FLAG NO
[2025-01-01 09:39] LABS: Basophils Percent Auto 0.3 % (0-2); Eosinophils Absolute Auto 0.1 X10*3/uL (0.0-0.4); Eosinophils Percent Auto 0.5 % (0-4); Hematocrit 27.6 % (37.0-47.0); Hemoglobin 9.5 g/dl (12.0-16.0); Imm Gran Abs Auto 0.04 X10*3/uL (0.00-0.03); Imm Gran Pct Auto 0.4 % (0.0-0.4); Lymphocytes Absolute Auto 1.4 X10*3/uL (1.2-4.9); Lymphocytes Percent Auto 12.9 % (20-40); Mean Corpuscular HGB Conc 34.4 g/dl (31.0-35.0); Mean Corpuscular Volume 90.2 fL (80.0-98.0); Mean Platelet Volume 10.1 fL (9.4-12.3); Monocytes Percent Auto 9.1 % (2-11); Neutrophils Absolute Auto 8.1 x10*3/uL (2.0-8.3); Neutrophils Percent Auto 76.8 % (45-73); Platelet Count 130 X10*3/uL (160-400); Red Blood Count 3.06 X10*6/uL (4.20-5.50); Red Cell Distribution Width 13.4 % (11.0-16.0); White Blood Count 10.6 X10*3/uL (4.8-10.8)
[2025-01-01] MEDS: Enoxaparin Sodium 80 MG/0.8 ML SYRINGE 70 MG SUBCUT (10:26)
[2025-01-01] MEDS: vancomycin HCL 1,000 MG in 0.9 % Sodium Chloride 250 ML 270 MG IV (10:27)
[2025-01-01] MEDS: 0.9 % Sodium Chloride Flush 3 ML SYRINGE IVFLUSH ×3 (10:27→23:26)
[2025-01-01 10:36] LABS: Anion Gap 15 (12-20); Blood Urea Nitrogen 10 mg/dL (9-16); Calcium 8.3 mg/dL (8.4-10.2); Carbon Dioxide 20 mmol/L (22-29); Chloride 104 mmol/L (96-108); Estimated Glomerular Filt Rate > 60; Glucose Random 180 mg/dL (60-115); Potassium 3.5 mmol/L (3.3-5.1); Sodium 135 mmol/L (135-145); Vancomycin Random 13.4 mcg/mL (15-20)
--- NOTE | 2025-01-01 10:50 | HE.PHANOTE ---
RE: VANCO DOSING Trough came back as 13.4 mg/L and renal function is stable. Nurse already hung the @1100 dose of 1000 mg when trough was still in pending. Starting new dose of 1250 mg q12h @2300 01/01/25, next trough is scheduled for 01/02/25 @2100.
--- NOTE | 2025-01-01 12:53 | P.PNIM_ITS ---
Subjective Subjective Date of Service: 01/01/25 Interval History: Seen and evaluated this morning Feels weak and having chills and fever reporting right sided pain no other events Review of Systems Review of Systems: Yes all other systems are reviewed and are negative Physical Exam 2 Vital Signs: Vital Signs: Last Vital Signs Temp 99.1 F 01/01/25 11:29 Pulse 102 H 01/01/25 11:29 Resp 18 01/01/25 11:29 BP 151/69 H 01/01/25 11:29 Pulse Ox 99 01/01/25 11:29 O2 Del Method Room Air 01/01/25 11:29 BMI result Body Mass Index 29.0 Const: Other: Constitutional : Awake, interactive, not in distress Neck : Normal inspection, Supple Cardiovascular : RRR, no JVP, no lower extremity edema Respiratory : fair bilateral air entry, no crackles, wheezes or rhonchi Gastrointestinal: soft, lax, Normal bowel sounds, mild tenderness in right loin and chest wall rather than abdomen but no surgical signs Skin : Warm, Dry Neurological : Alert & oriented x3, No focal deficit Objective Data Active Medications Acetaminophen (Acetaminophen 325 Mg Tablet) 650 mg PO Q6H PRN PRN Reason: Pain, Mild 1-3,fever,headache Calcium Carbonate (Calcium Carbonate 750 Mg Tab.Chew) 750 mg PO Q4H PRN PRN Reason: Heartburn Enoxaparin Sodium (Enoxaparin Sodium 80 Mg/0.8 Ml Syringe) 70 mg SUBCUT Q12H [facility] Last Admin: 01/01/25 10:26 Dose: 70 mg Documented By: LYNDSAY Gabapentin (Gabapentin 300 Mg Capsule) 300 mg PO BEDTIME [facility] Last Admin: 12/31/24 20:16 Dose: Not Given Documented By: GRACE Non-Admin Reason: Patient declined Cefepime HCl (Maxipime) 2 gm in 50 mls @ 100 mls/hr IV Q8H [facility] Last Infusion: 01/01/25 05:50 Dose: Infused Documented By: GRACE Vancomycin HCl 1,250 mg/ (Sodium Chloride) 250 mls @ 166.667 mls/hr IV Q12H [facility] Magnesium Hydroxide (Milk Of Magnesia 30 Ml Oral.Susp) 30 ml PO DAILY PRN PRN Reason: Constipation Melatonin (Melatonin 3 Mg Tablet) 6 mg PO BEDTIME PRN PRN Reason: Insomnia Morphine Sulfate (Morphine Sulfate 4 Mg/Ml Cartridge) 4 mg IVPUSH Q4H PRN; Protocol PRN Reason: Pain, Severe (Pain Scale 7-10) Omeprazole (Omeprazole 20 Mg Capsule.Dr) 20 mg PO BID@0630,1630 [facility] Last Admin: 01/01/25 05:20 Dose: 20 mg Documented By: GRACE Ondansetron HCl (Ondansetron Hcl 4 Mg/2 Ml Vial) 4 mg IVPUSH Q8H PRN PRN Reason: Nausea and Vomiting Oxycodone HCl (Oxycodone Hcl Immed Release 5 Mg Tablet) 5 mg PO Q6H PRN PRN Reason: Pain, Moderate(Pain Scale 4-6) Pharmacy Consult (Consult Rx Vancomycin Dosing) 1 each MISCELLANE DAILY PRN PRN Reason: Consult order Sodium Chloride (0.9 % Sodium Chloride Flush 3 Ml Syringe) 3 ml IVFLUSH QSHIFT [facility] Last Admin: 01/01/25 10:27 Dose: 3 ml Documented By: LYNDSAY Labs 01/01/25 09:25 01/01/25 09:25 Labs: Laboratory Results - last 24 hr 01/01/25 09:25 MCV 90.2 MCH 31.0 MCHC 34.4 RDW 13.4 Plt Count 130 L MPV 10.1 Immature Gran % (Auto) 0.4 Neut % (Auto) 76.8 H Lymph % (Auto) 12.9 L [place] % (Auto) 9.1 Eos % (Auto) 0.5 Baso % (Auto) 0.3 Lymph # (Auto) 1.4 [place] # (Auto) 1.0 Eos # (Auto) 0.1 Baso # (Auto) 0.0 Abs Immat Gran (auto) 0.04 H Absolute Neuts (auto) 8.1 Absolute Nucleated RBC 0.000 Nucleated RBC % (auto) 0.0 Anion Gap 15 Estim Creat Clear Calc 81.0 Estimated GFR > 60 Random Glucose 180 H Calcium 8.3 L Random Vancomycin 13.4 L Microbiology Microbiology Results: Microbiology 12/30/24 14:04 Blood Culture - Preliminary Blood - Arterial No growth after 24 hours. 12/30/24 14:04 Blood Culture - Preliminary Blood - Arterial No growth after 24 hours. Assessment and Plan (1) Metastatic disease: Status: Acute (2) Metastatic cancer to liver: Status: Acute (3) Pulmonary embolism: Status: Acute (4) Elevated troponin: Status: Acute (5) Fever: Status: Acute Plan This is a 64-year-old female with pertinent history of metastatic gallbladder adenocarcinoma s/p chemotherapy, radiation and surgery (partial hepatectomy, cholecystectomy and lymphadenectomy), 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 # Acute submassive PE CTA showing left sided submassive PE, no cardiac strain noted Not requiring O2 supplement therapeutic lovenox to DC and start therapeutic Eliquis Closely monitor hemodynamics # Intractable abdominal pain with imaging evidence of progression of metastatic gallbladder adenocarcinoma CT Abd reporting progression of the disease IV and PO opioids p.r.n. for analgesia Consulting Oncology # SIRS in a patient who is immunocompromised Fever could be due to underlying cancer and PE empiric broad-spectrum IV Cefepime and Vanco Follow cultures # Gastroesophageal reflux disease On PPI # Peripheral neuropathy On gabapentin DVT prophylaxis: Eliquis inpatient overnight hospital stay for IV antibiotics, close hemodynamic monitoring with anticoagulation (as above) pending final cultures , which is not possible in a lesser acute setting. Specialist consult pending Quality Stroke Does the patient have a stroke diagnosis?: No VTE Prior VTE?: No VTE Risk Level:: Medical - moderate - high VTE Device Contraindication: Treatment Not Indicated VTE Drug Contraindication: N/A - Med Ordered
--- NOTE | 2025-01-01 15:29 | PC.NURSE ---
patient complaint of fever approx 1430 oral temp =99.9, one hour later at 1530 oral temp+ 100.9. Tylenol offered, patient refused due to liver cancer. notified.
[2025-01-01] MEDS: Acetaminophen 325 MG TABLET 650 MG PO (15:35)
[2025-01-01] MEDS: Apixaban 5 MG TABLET 10 MG PO (20:51)
[2025-01-01] MEDS: vancomycin HCL 1,250 MG in 0.9 % Sodium Chloride 250 ML 166.67 MG IV (23:24)
[2025-01-02 04:00] VITALS: BP 131/65; PULSE 101; RESP 16; TEMP 37.5; O2SAT 98
[2025-01-02] MEDS: Omeprazole 20 MG CAPSULE.DR PO (05:37)
[2025-01-02] MEDS: cefEPime HCl/D5W 2 GM/50 ML PIGGYBACK IV (05:37)
[2025-01-02 07:40] VITALS: BP 122/67; PULSE 101; RESP 18; TEMP 36.7; O2SAT 99
[2025-01-02 07:54] LABS: Creatinine Clr Calc Pharmacy 89.2; Estimated Glomerular Filt Rate > 60
[2025-01-02] MEDS: 0.9 % Sodium Chloride Flush 3 ML SYRINGE IVFLUSH (08:55)
[2025-01-02] MEDS: Apixaban 5 MG TABLET 10 MG PO (08:55)
[2025-01-02] MEDS: vancomycin HCL 1,250 MG in 0.9 % Sodium Chloride 250 ML 166.67 MG IV (11:01)
--- NOTE | 2025-01-02 11:36 | MHC.CM.PN ---
Per MD, Patient will need [facility] (SN); [facility] has accepted Patient and CM will follow.
[2025-01-02 11:47] VITALS: BP 120/52; PULSE 98; RESP 17; TEMP 37.1; O2SAT 99
--- NOTE | 2025-01-02 11:52 | P.DS_ITS ---
DS: Providers Provider Date of Service: 01/02/25 Date of admission: 12/30/24 20:12 Date of discharge: 01/02/25 Primary care physician: Adria Rubio MD Consults: 12/30/24 19:58 Consult to Cardiology Stat Consulting Provider: Molina Box Reason for consultation: elevated troponins Has provider been notified: Yes 12/30/24 21:31 Consult to Hematology / Oncology Routine Consulting Provider: [facility] [place]/Hematology Reason for consultation: Progression of metastatic gallbladder adenocarcinoma DS: Diagnosis Discharge Diagnosis (1) Metastatic disease: Status: Acute (2) Metastatic cancer to liver: Status: Acute (3) Pulmonary embolism: Status: Acute (4) Elevated troponin: Status: Acute (5) Fever: Status: Acute DS: Summary Hospital Course Hospital Course: Admission note HPI This is a 64-year-old female with pertinent history of metastatic gallbladder adenocarcinoma s/p chemotherapy, radiation and surgery (partial hepatectomy, cholecystectomy and lymphadenectomy), left breast moderately differentiated carcinoma s/p chemotherapy and radiation, history of PE/DVT non compliant with Eliquis, gastroesophageal reflux disease, peripheral neuropathy, who presents to the emergency department for evaluation of abdominal pain and fever. Patient states she has had chronic upper abdominal discomfort that has been ongoing for months. This worsened in the last 2 days. It was initially intermittent but progressed to being constant. Also noted to have fevers 2 days prior to presentation. Denies nausea, vomiting, diarrhea, cough. Patient states she was previously on Eliquis for history of blood clots but stopped taking it 2 weeks ago as she ran out of it. Patient was seen outpatient on the day of presentation and she was found to be tachycardic, tachypneic, febrile and sent to the ER for further evaluation. She denies palpitations, changes in urinary or bowel habits. In the emergency department, imaging positive for PE in the segmental left lower lobe pulmonary artery. Also imaging with findings suggesting progressive metastatic disease with increasing number of hepatic lesions and numerous bilateral pulmonary nodules. Hospital course The patient was admitted and treated for the following: # Acute submassive PE. CTA showing left sided submassive PE, no cardiac strain noted. Not requiring O2 supplement. therapeutic lovenox started on admission then switched to full dose Eliquis 10 mg bid and will be discharged on Eliquis with a plan to follow with oncology as outpatient. this will be lifelong medication. # progression of metastatic gallbladder adenocarcinoma with reported new right sided chest wall and back pain. CT Abd reporting progression of the disease as described below. pain likely related to that. IV and PO opioids offered p.r.n. for analgesia but patient only was willing to take Tylenol. she will follow with Dr Doan in office next week to discuss care plan. # Fever in a patient who is immunocompromised. Fever could be due to underlying cancer and PE as no clear source of infection identified. Covered with empiric broad-spectrum IV Cefepime and Vanco. blood pressure were negative after [address] Doan suggested keeping the pating on empirical antibiotics on discharge. To DC on Cefpodoxime for 5 more days. advised to come back to ED for any fever or worsening symptoms. Tylenol for fever. Discharge plan Start Eliquis 10 mg two times a day for 1 week then 5 mg twice a day Cefpodoxime for 5 more days Follow with dr Doan in office next week Come back to ER for any worsening symptoms Time Attestation Discharge Coordination Time (in mins): 44 Quality: Safe Use of Opioids Does Pt have an Active Cancer Diagnosis on the Problem List?: Yes Opioid Measure Date for [facility] Report: 12/03/24 Opioid Measure Time for [facility] Report: 12:02 Quality: Stroke Does the patient have a stroke diagnosis?: No Physical Exam Vital Signs: Vital Signs: Last Vital Signs Temp 98.7 F 01/02/25 11:47 Pulse 98 01/02/25 11:47 Resp 17 01/02/25 11:47 BP 120/52 L 01/02/25 11:47 Pulse Ox 99 01/02/25 11:47 O2 Del Method Room Air 01/02/25 11:47 BMI result Body Mass Index 29.0 Const: Other: Constitutional : Awake, interactive, not in distress Neck : Normal inspection, Supple Cardiovascular : RRR, no JVP, no lower extremity edema Respiratory : fair bilateral air entry, no crackles, wheezes or rhonchi Gastrointestinal: soft, lax, Normal bowel sounds, mild tenderness in right loin and chest wall rather than abdomen but no surgical signs Skin : Warm, Dry Neurological : Alert & oriented x3, No focal deficit DS: Data Data Completed and Pending Labs on day of discharge: Laboratory Results - last 24 hr 01/02/25 06:51 Creatinine 0.60 Estim Creat Clear Calc 89.2 Estimated GFR > 60 Preliminary micro results at discharge 12/30/24 14:04 Blood Culture - Preliminary Blood - Arterial No growth after 48 hours. 12/30/24 14:04 Blood Culture - Preliminary Blood - Arterial No growth after [address] scan - abdomen: Radiologist's impression: ITS Impressions Chest X-Ray 12/30/24 14:14 IMPRESSION: Elevated right hemidiaphragm with adjacent subsegmental atelectasis or pneumonia. Electronically signed by: Andi Tan MD 12/30/2024 02:45 PM EDT RP Chest CTA 12/30/24 14:23 IMPRESSION: 1. POSITIVE examination for pulmonary embolus in segmental left lower lobe pulmonary arteries. These were not present previously. Low clot burden. No right heart strain or reflux of contrast into the IVC. 2. There is no evidence of acute aortic syndrome. 3. Extensive innumerable metastatic lesions present throughout the liver. These have extensively worsened when compared with most recent PET CT from [facility] 09/29/2024. 4. Numerous bilateral pulmonary nodules measuring up to 6 mm, highly suspicious for metastases. The majority of these are new or enlarged. 5. Subcentimeter mediastinal and bilateral hilar lymph nodes measuring up to 1.1 cm. 6. Additional ancillary findings as discussed in the body of the report. Electronically signed by: Galdino Mcneill MD 12/30/2024 05:[address] Abd: Findings: There is a new right lower lobe 0.6 x 0.5 cm pulmonary lesion, possible metastasis. There is increasing size and number of hepatic lesions, possible metastatic disease. There are no abnormal findings in the gallbladder fossa. Solid organs are otherwise within normal limits. No renal stones. No bowel obstruction, pneumoperitoneum, or pneumatosis. There are diverticula in the descending and sigmoid colon without imaging evidence of diverticulitis. Pelvic contents unremarkable. Normal appendix. The bones are intact. IMPRESSION: Findings suggesting progressive metastatic disease. Discharge Plan Discharge Anticipated Discharge Date/Time: 01/02/25 11:38 Patient Disposition: Home Health Service Discharge Diagnosis: Pulmonary embolism Referrals: Adria Rubio MD [Primary Care Provider] - 1 Week Discharge Medications: New ondansetron 4 mg tablet,disintegrating 4 mg PO Q8H PRN (Reason: nausea and vomiting) Qty: 30 0RF cefpodoxime 100 mg tablet 100 mg PO BID Qty: 10 0RF Rx Instructions: must administer with a meal/food Eliquis DVT-PE Treat 30D Start 5 mg (74 tabs) tablets,dose pack 5 mg PO BID Qty: 74 0RF Continued gabapentin 300 mg capsule 300 mg PO BEDTIME Qty: 90 0RF cholecalciferol (vitamin D3) 25 mcg (1,000 unit) tablet 25 mcg PO DAILY Qty: 90 3RF everolimus (antineoplastic) 10 mg Tablet 10 mg PO DAILY Qty: 30 5RF Tab-A-Marissa Multivitamin w-iron 15 mg iron- 400 mcg tablet 1 tab PO DAILY omeprazole 20 mg capsule,delayed release(DR/EC) 20 mg PO BID@0630,1630 raloxifene 60 mg tablet 60 mg PO DAILY (DME) bath stole See Rx Instructions .Route .MEDSUPPLY Qty: 1 0RF Rx Instructions: As directed (DME) compression stockings medium See Rx Instructions .Route .MEDSUPPLY Qty: 1 0RF Rx Instructions: As directed Discontinued Eliquis 5 mg Tablet 5 mg PO BID Qty: 60 4RF Discharge Orders: Discharge Order (Routine); Ordered 01/02/25 Ordered By: Jasen Rawls Diet: Advance to usual diet Activity on Discharge: As tolerated Stand Alone Forms: Patient Portal Discharge page Print Language: [place] Citizen Care Plan Goals: Start Eliquis 10 mg two times a day for 1 week then 5 mg twice a day Cefpodoxime for 5 more days Follow with dr Doan in office next week Come back to ER for any worsening symptoms Health Concerns: Pulmonary embolism Progressing cancer Plan of Treatment: Eliquis Antibiotics Oncology follow up Assessment: as above
--- NOTE | 2025-01-02 12:03 | MHC.CM.PN ---
Patient has been medically cleared for dc to home today, with services. [facility] has accepted Patient and they are aware of today's dc. Last IMM addressed on 12/31/2024.
--- NOTE | 2025-01-02 12:08 | W.MHC.F2F ---
Service Date Service Date: 01/02/25 Encounter Date of encounter: 01/02/25 Reasons for Services Signs and symptoms assessed: Progressive malignant cancrer Reason for long term: medication management, teach disease management and GI/ assessment Homebound: Leaving the home is medically contraindicated at this time without the asist of a device and/or another person due th the listed conditions above and below. Reason homebound: unable to drive Certification: Based on the above findings, I certify that this patient is confined to the home and needs intermittent long term care, physical therapy and/or speech therapy, or continues to need occupational therapy. The patient is under my care, and I have initiated the establishment of the plan of care. The patient will be followed by a physician who will periodically review the plan of care. Time Spent With Patient Time: Total time managing care of this patient today ____ minutes.
== END 2025-01-02 13:53 | disposition home health service (06) | DRG 134 ==
LOC: HO.ED 19:58 → HO.EDOVER 20:21 → HO.IMC 12-31 13:44
PROVIDERS: Internal Medicine Medical Oncology; Physician Assistant Medical; Admitting Provider Student in an Organized Health Care Education/Training Program; Emergency Provider Emergency Medicine; PCP Internal Medicine; Visit Provider Student in an Organized Health Care Education/Training Program
DX: I26.99 Other pulmonary embolism without acute cor pulmonale (principal); D84.9 Immunodeficiency, unspecified; C23 Malignant neoplasm of gallbladder; C78.01 Secondary malignant neoplasm of right lung; C78.7 Secondary malignant neoplasm of liver and intrahepatic bile duct; C78.02 Secondary malignant neoplasm of left lung; D63.0 Anemia in neoplastic disease; G89.3 Neoplasm related pain (acute) (chronic); K21.9 Gastro-esophageal reflux disease without esophagitis; T45.516A Underdosing of anticoagulants, initial encounter; G62.9 Polyneuropathy, unspecified; Z20.822 Contact with and (suspected) exposure to COVID-19; Z79.899 Other long term (current) drug therapy
CPT/HCPCS: 0241U; 36415; 71045; 71275; 74177; 80048; 80053; 80076; 80202; 80307; 81001; 82565; 83605; 83690; 83735; 83880; 84484; 85025; 85027; 85610; 85730; 87040; 87633; 93005; 99285; J0131; J0692; J0696; J1650; J3370; J3371; Q9967

== ENCOUNTER → 2024-12-30 13:59 | Outpatient (BNV) | payer OTHER, SELFPAY | PROVIDERS: Admitting Provider Student in an Organized Health Care Education/Training Program; Emergency Provider Emergency Medicine; PCP Internal Medicine; Visit Provider Internal Medicine Cardiovascular Disease | DX: I49.3 Ventricular premature depolarization (principal) | CPT/HCPCS: 93010 ==

== ENCOUNTER → 2024-12-30 14:14 | Outpatient (BNV) | payer OTHER, SELFPAY | PROVIDERS: PCP Internal Medicine; Visit Provider Radiology Diagnostic Radiology | DX: R79.89 Other specified abnormal findings of blood chemistry (principal); I26.99 Other pulmonary embolism without acute cor pulmonale; R50.9 Fever, unspecified | CPT/HCPCS: 71045; 71275; 74177 ==

== ENCOUNTER → 2024-12-30 20:12 | Outpatient (BNV) | payer OTHER, SELFPAY | PROVIDERS: Admitting Provider Student in an Organized Health Care Education/Training Program; Emergency Provider Emergency Medicine; PCP Internal Medicine; Visit Provider Student in an Organized Health Care Education/Training Program | DX: C79.9 Secondary malignant neoplasm of unspecified site (principal); I26.99 Other pulmonary embolism without acute cor pulmonale; C78.7 Secondary malignant neoplasm of liver and intrahepatic bile duct; R79.89 Other specified abnormal findings of blood chemistry; R50.9 Fever, unspecified; C23 Malignant neoplasm of gallbladder | CPT/HCPCS: 99223; 99232; 99233; 99239; G0180 ==

== ENCOUNTER → 2024-12-30 20:12 | Outpatient (BNV) | payer OTHER, SELFPAY | PROVIDERS: Admitting Provider Student in an Organized Health Care Education/Training Program; Emergency Provider Emergency Medicine; PCP Internal Medicine; Visit Provider Internal Medicine Cardiovascular Disease | DX: C78.7 Secondary malignant neoplasm of liver and intrahepatic bile duct (principal); I26.99 Other pulmonary embolism without acute cor pulmonale | CPT/HCPCS: 99222 ==

== ENCOUNTER 2025-01-14 13:25 | Outpatient (REF) | payer OTHER, SELFPAY ==
--- OUTSIDE RECORDS SUMMARY | 2025-01-14 14:00 | XMS_ITS ---
Author Organization [facility] Address [address] [place] [address] Care Team Providers Care Milking System Installer Name Role Phone dAria Rubio MD Primary Care Provider [phone] Active Problems Problem Noted Date Diagnosed Date Rotator cuff tendonitis 09/30/2024 Sacroiliitis ([facility] V24) 09/30/2024 Segmental and somatic dysfunction of sacral tiki on 09/30/2024 Chronic pain of right hip 09/30/2024 Greater trochanteric bursitis 09/30/2024 Lumbar spondylosis 06/30/2024 Back pain 06/30/2024 Malignant neoplasm of left b reast ([facility] V24, [facility] V28) 06/30/2024 Chest pain 06/30/2024 Chronic cough 06/30/2024 History of colon polyps 06/30/2024 Neuropathy 06/30/2024 Pneumonitis 06/30/2024 Pulmonary embolism ([facility] V24, [facility] V28) Pulmonary nodules 06/30/2024 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[facility] V24, [facility] V28) Cancer Staging:Pathologic:Stage IIIB(pT2b, pN1, cM0) [...]
--- OUTSIDE RECORDS SUMMARY | 2025-01-14 14:00 | XMS_ITS | Clinical Summary ---
Author Organization [facility] Address [address] [place] [address] Care Team Providers Care Collar Sewer Name Role Phone Adria Rubio MD Primary Care Provider [phone] Allergies Active Allergy Reactions Criticality Noted Date [...] Diagnosed Date Rotator cuff tendonitis 09/30/2024 Sacroiliitis ([facility] V24) 09/30/2024 Segmental and somatic dysfunction of sacral tiki on 09/30/2024 Chronic pain of right hip 09/30/2024 Greater trochanteric bursitis 09/30/2024 Lumbar spondylosis 06/30/2024 Back pain 06/30/2024 Malignant neoplasm of left b reast ([facility] V24, [facility] V28) 06/30/2024 Chest pain 06/30/2024 Chronic cough 06/30/2024 History of colon polyps 06/30/2024 Neuropathy 06/30/2024 Pneumonitis 06/30/2024 Pulmonary embolism ([facility] V24, [facility] V28) Pulmonary nodules 06/30/2024 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[facility] V24, [facility] V28) Cancer Staging:Pathologic:Stage IIIB(pT2b, pN1, [...] History Medical History Date Comments Breast cancer ([facility] V24, [facility] V28) Clotting disorder ([facility] V24) Family History Medical History [...] patient's age to complete this topic Insurance [facility] [place] [id number] MEDICAID - [place] Care Teams Collar Sewer Relationship Specialty Start Date End Date Adria Rubio MD [address] [place] [phone] PCP - General Internal Medicine 08/04/24
--- OUTSIDE RECORDS SUMMARY | 2025-01-14 14:00 | XMS_ITS | Clinical Summary ---
Author Organization [facility], Address [address] [place] [address] [place] [address] Phone Care Team Providers Care Truck Greaser Name Role Phone OrtizAlbert martin Primary Care Provider [phone] Allergies Active Allergy Reactions Criticality Noted Date [...] complete this topic Insurance [employer] Care Teams Truck Greaser Relationship Specialty Start Date End Date Albert Ortiz DO [address] [place] [phone] PCP - General Nephrology 01/10/21
[2025-01-14 16:20] LABS: Appearance Urine Clear; Bacteria Urine None Seen (None Seen); Color Urine Yellow; Glucose Urine UA Negative (Negative); Hyaline Casts Urine 0-2 /LPF (0-2); Leukocyte Esterase Urine Negative (Negative); Nitrite Urine Negative (Negative); PH 6.5 (5.0-9.0); RBC Urine 0-2 /HPF (0-2); Squamous Epithelial Cell Urine 0-2 /HPF (0-2); UMIC TRIGGER UACC YES; Urine Blood Trace (Negative); Urine Ketones Negative (Negative); Urine Protein Negative (Neg-Trace); WBC Urine 0-5 /HPF (0-5)
== END 2025-01-14 13:26 | disposition home or self-care (01) ==
LOC: HO.HMGCLDS 13:25
PROVIDERS: PCP Internal Medicine; Visit Provider Internal Medicine
DX: R30.0 Dysuria (principal); C22.1 Intrahepatic bile duct carcinoma; M54.6 Pain in thoracic spine; G89.29 Other chronic pain; B35.4 Tinea corporis; Z79.01 Long term (current) use of anticoagulants; I26.99 Other pulmonary embolism without acute cor pulmonale; G62.0 Drug-induced polyneuropathy; T45.1X5A Adverse effect of antineoplastic and immunosuppressive drugs, initial encounter; X58.XXXA Exposure to other specified factors, initial encounter; Z85.09 Personal history of malignant neoplasm of other digestive organs; Z90.49 Acquired absence of other specified parts of digestive tract
CPT/HCPCS: 81001; 99212

== ENCOUNTER 2025-01-14 13:25 | Outpatient (AMB) | payer OTHER, SELFPAY ==
--- NOTE | 2025-01-14 13:26 | A.OFFPC_ITS ---
Vital Signs 01/14/25 13:27 Height 5 ft 4 in Weight 160 lb 4 oz BMI 27.5 BP 130/62 Blood Pressure Location Rt brachial Position Sitting Pulse 99 Pulse Source Pulse Oximeter Pulse Oximetry (%) 100 Oxygen Delivery Method Room Air Intake Visit Reasons: HDF ~ Post hospital discharge FU Allergies Penicillins [PENICILLINS] Allergy (Severe, Verified 01/14/25 13:27) ANAPHYLAXIS, swelling streptomycin [STREPTOMYCIN] Allergy (Severe, Verified 01/14/25 13:27) ANAPHYLAXIS Medication List - Last Reconciled 01/14/25 by Adria Rubio MD apixaban (Eliquis DVT-PE Treat 30D Start) 5 mg PO BID [bath stole As directed] cholecalciferol (vitamin D3) 25 mcg PO DAILY [compression stockings As directed] dexamethasone 1 mg (10 mL) PO QID everolimus (antineoplastic) 10 mg PO DAILY everolimus (antineoplastic) 7.5 mg PO DAILY exemestane (Aromasin) 25 mg PO DAILY gabapentin 300 mg PO BEDTIME multivit-iron sulf-folic acid 15 mg iron- 400 mcg (Tab-A-Marissa Multivitamin w- iron) 1 tab PO DAILY omeprazole 20 mg PO BID@0630,1630 ondansetron 4 mg PO Q8H PRN raloxifene 60 mg PO DAILY Tobacco use date assessed: 01/14/25 Dental Screening Dental Screen Date: 01/14/25 Did you have a dental problem in the last 6 months where you did not have access to dental care?: No HPI HDF ~ Post hospital discharge FU HPI Details Patient is 64-year-old female with a history of metastatic gallbladder adenocarcinoma status post chemotherapy, radiation and surgical that is partial hepatectomy and cholecystectomy and lymphadenectomy. Patient also has a history of left breast moderately differentiated carcinoma status post chemotherapy and radiation in the past History of PE/DVT, noncompliant with Eliquis History of GERD, peripheral neuropathy after the chemotherapy for breast cancer, presented to emergency room with abdominal pain and fever Date of admission December 30, 2024 date of discharge January 02, 2025 [facility] Her workup revealed acute submassive PE: CTA showed left-sided submassive PE, no cardiac strain noted, did not require oxygen supplement Therapeutic Lovenox was started on admission and then switch to full dose of Eliquis 10 mg b.i.d. and then was discharged on Eliquis to be followed with Oncology as an outpatient. Also progression of metastatic gallbladder adenocarcinoma was noted CTA abdomen reporting progression of the disease patient was complaining of right-sided chest wall and back pain which was most likely due to that. Pain was controlled with opioids p.o. Patient was found to be immunocompromised fever could be due to that or due to PE but no clear source of infection was identified She was treated with empiric broad-spectrum IV cefepime and vanco. Blood culture remained negative after 48 hours She came in today for a follow-up appointment - Reports taking Eliquis; however, notes that two additional prescribed medications have not been received. Through Dr. Doan - The patient has developed oral candidi asis and reports a bad taste in her mouth and a loss of appetite since the medication alteration. - Experiences a genital rash, described as being on the private part of the mouth, likely indicating discomfort due to irritation or infection. - Reports weight gain despite reduced fo od intake, with present weight noted to be 157 pounds, increased from earlier 95 pounds upon arrival in [place]. - Experiences back pain and discomfort, with suspicions of potential urinary tract infection due to burning sensation and frequent urge to urinate, described as being relieved temporarily by cold water application. Problem List - Oral Candidiasis - Genital Rash - Weight Gain - Back Pain - Suspected Urinary Tract Infection - Cancer (unspecified, with noted spread ) - long-term use of blood thinners, recur rent clots Patient Instructions - Continue taking prescribed Eliquis as directed. - Collect medications for the oral and g enital rash prescribed and start using them as instructed. - Complete the urine test as ordered to check for a possible urinary infection. - Track any changes in symptoms and repo rt if any new or worsening symptoms occur. - Increase water intake to alleviate uri nary discomfort. - Monitor weight regularly and engage in regular physical activity to manage weight gain. Review of Systems - General: No fever no chills - Neurological: No headaches - Ear nose throat: No sore throat no hearing difficulty no ear pain - Cardiovascular: No syncope, no chest pain, no palpitations - Gastrointestinal: No nausea vomiting or diarrhea - Endocrine: No polyuria polydipsia no heat intolerance Physical Exam General: No acute distress HEENT: No acute findings Neck: Supple Respiratory system: Able to talk in full sentences, no audible wheeze Cardiovascular: S1-S2 regular in rate and rhythm Gastrointestinal: No pain Extremities: No new findings Back: Complaining of pain left CVA, no pain with percussion 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 x3 Skin: Normal turgor PFSH Medical History Metastatic disease Metastatic cancer to liver Pulmonary embolism Metastasis from gallbladder cancer Pulmonary embolism Pulmonary nodules Pneumonitis Chest pain Chronic cough Vaginal yeast infection Breast lump on right side at 5 o'clock position History of colon polyps Breast cancer, left (~10/2016) Spondylosis Back pain Neuropathy Surgical History Hx of cholecystectomy History of esophagogastroduodenoscopy (EGD) History of lumpectomy of right breast (06/26/22) Hx of vein stripping Hx of colonoscopy (~10/2018) S/P breast lumpectomy Family History Mother No problems noted. Father No problems noted. Other No family history of cancer Social History Household Members: None Housing: Apartment Are you a primary home care administrator to a significant other at home: No Do you presently have visiting nurse or other home services: No Unable to assess alcohol history related to: Unknown Alcohol intake: never Comment: med with oxycodone 5 mg po in PACU Patient Tobacco Use Status: Never used Tobacco e-Cigarette/Vaping Use: Never Used service: No Current occupational status: disabled Current occupation: rt handed Cognitive needs: No Hearing needs: No Vision needs: Yes Female Reproductive History Menstrual Age of Menarche: 15 Questionnaire Thrive Questionnaire Date Thrive assessed: 12/31/24 AUDIT C Alcohol Use Questionnaire (AUDIT-C) 1. How often do you have a drink containing alcohol?: Never 3. How often do you have six or more drinks on one occasion?: Never Total Score: 0 Score Reviewed/Action Taken: Yes INOCENCIO-7 AMB Questionnaire INOCENCIO-7 Date INOCENCIO - 7 assessed: 12/08/24 Source: Developed by Drs. Andi Kim, Ashley Watson, Donovan Jones and colleagues, with an educational reji from [facility]. Physical exam (Primary Care) Vital Signs: Last Vital Signs Pulse 99 01/14/25 13:27 BP 130/62 01/14/25 13:27 Pulse Ox 100 01/14/25 13:27 Oxygen Delivery Method Room Air 01/14/25 13:27 BMI result Body Mass Index 27.5 Tobacco/Smoking Status: Tobacco use Status Tobacco use date assessed 01/14/25 01/14/25 13:29 Patient Tobacco Use Status Never used Tobacco 01/14/25 13:29 e-Cigarette/Vaping Use Never Used 01/14/25 13:29 Thrive Assessment: Date of Thrive Assessment Date Thrive assessed 12/31/24 01/14/25 13:29 Coding Level of Care Code Est Pt Level 5 (52806) Diagnoses Dysuria R30.0 Hospital discharge follow-up Z09 Metastatic cholangiocarcinoma C22.1 Chronic bilateral thoracic back pain M54.6; G89.29 Back pain laterality: bilateral Back pain location: thoracic back pain Tinea corporis B35.4 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.01 Recurrent pulmonary embolism I26.99 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; T45.1X5A Time Spent (min) 40 Comment Hospital notes, chart, [id number] with the patient, coordination of care Assessment & Plan Assessment & Plan (1) Dysuria: Code(s): R30.0 - Dysuria Category: Medical (2) Hospital discharge follow-up: Code(s): Z09 - Encounter for follow-up examination after completed treatment for conditions other than malignant neoplasm Category: Medical (3) Metastatic cholangiocarcinoma: Code(s): C22.1 - Intrahepatic bile duct carcinoma Category: Medical (4) Chronic back pain: Code(s): M54.9 - Dorsalgia, unspecified; G89.29 - Other chronic pain Category: Medical Qualifiers: Back pain laterality: bilateral Back pain location: thoracic back pain Qualified Code(s): M54.6 - Pain in thoracic spine; G89.29 - Other chronic pain (5) Tinea corporis: Code(s): B35.4 - Tinea corporis Category: Medical (6) 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: Code(s): Z79.01 - senior living (current) use of anticoagulants Category: Medical (7) Recurrent pulmonary embolism: Code(s): I26.99 - Other pulmonary embolism without acute cor pulmonale Category: Medical (8) Chemotherapy-induced neuropathy: Code(s): G62.0 - Drug-induced polyneuropathy; T45.1X5A - Adverse effect of antineoplastic and immunosuppressive drugs, initial encounter Category: Medical Plan Patient is 64-year-old female with a history of metastatic gallbladder adenocarcinoma status post chemotherapy, radiation and surgical that is partial hepatectomy and cholecystectomy and lymphadenectomy. Patient also has a history of left breast moderately differentiated carcinoma status post chemotherapy and radiation in the past History of PE/DVT, noncompliant with Eliquis History of GERD, peripheral neuropathy after the chemotherapy for breast cancer, presented to emergency room with abdominal pain and fever Date of admission December 30, 2024 date of discharge January 02, 2025 [facility] Her workup revealed acute submassive PE: CTA showed left-sided submassive PE, no cardiac strain noted, did not require oxygen supplement Therapeutic Lovenox was started on admission and then switch to full dose of Eliquis 10 mg b.i.d. and then was discharged on Eliquis to be followed with Oncology as an outpatient. Also progression of metastatic gallbladder adenocarcinoma was noted CTA abdomen reporting progression of the disease patient was complaining of right-sided chest wall and back pain which was most likely due to that. Pain was controlled with opioids p.o. Patient was found to be immunocompromised fever could be due to that or due to PE but no clear source of infection was identified She was treated with empiric broad-spectrum IV cefepime and vanco. Blood culture remained negative after 48 hours She came in today for a follow-up appointment - Reports taking Eliquis; however, notes that two additional prescribed medications have not been received. Through Dr. Doan - The patient has developed oral candidiasis and reports a bad taste in her mouth and a loss of appetite since the medication alteration. - Experiences a genital rash, described as being on the private part of the mouth, likely indicating discomfort due to irritation or infection. - Reports weight gain despite reduced food intake, with present weight noted to be 157 pounds, increased from earlier 95 pounds upon arrival in [place]. - Experiences back pain and discomfort, with suspicions of potential urinary tract infection due to burning sensation and frequent urge to urinate, described as being relieved temporarily by cold water application. Problem List - Oral Candidiasis - Genital Rash - Weight Gain - Back Pain - Suspected Urinary Tract Infection - Cancer (unspecified, with noted spread) - long-term use of blood thinners, recurrent clots Patient Instructions - Continue taking prescribed Eliquis as directed. - Collect medications for the oral and genital rash prescribed and start using them as instructed. - Complete the urine test as ordered to check for a possible urinary infection. - Track any changes in symptoms and report if any new or worsening symptoms occur. - Increase water intake to alleviate urinary discomfort. - Monitor weight regularly and engage in regular physical activity to manage weight gain. Orders: Orders UA CC w/rflx Micro + Cult Today R30.0 - Dysuria Medications: Refilled clotrimazole-betamethasone 1-0.05 % 1 appl topical ONCE 45 grams 0RF 30 days
[2025-01-14 13:27] VITALS: BP 130/62; PULSE 99; O2SAT 100; BMI 27.5
--- OUTSIDE RECORDS SUMMARY | 2025-01-14 13:27 | XMS_ITS | Clinical Summary ---
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
--- OUTSIDE RECORDS SUMMARY | 2025-01-14 13:27 | XMS_ITS ---
Author Organization [facility] Address [address] [place] [address] Care Team Providers Care Machine Group Leader Name Role Phone Adria Rubio MD Primary Care Provider [phone] Active Problems Problem Noted Date Diagnosed Date Rotator cuff tendonitis 09/30/2024 Sacroiliitis ([facility] V24) 09/30/2024 Segmental and somatic dysfunction of sacral tiki on 09/30/2024 Chronic pain of right hip 09/30/2024 Greater trochanteric bursitis 09/30/2024 Lumbar spondylosis 06/30/2024 Back pain 06/30/2024 Malignant neoplasm of left b reast ([facility] V24, [facility] V28) 06/30/2024 Chest pain 06/30/2024 Chronic cough 06/30/2024 History of colon polyps 06/30/2024 Neuropathy 06/30/2024 Pneumonitis 06/30/2024 Pulmonary embolism ([facility] V24, [facility] V28) Pulmonary nodules 06/30/2024 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[facility] V24, [facility] V28) Cancer Staging:Pathologic:Stage IIIB(pT2b, pN1, cM0) - [...]
--- OUTSIDE RECORDS SUMMARY | 2025-01-14 13:27 | XMS_ITS | Clinical Summary ---
Author Organization [facility] Address [address] [place] [address] Care Team Providers Care Teller Supervisor Name Role Phone Adria Rubio MD Primary Care Provider [phone] Allergies Active Allergy Reactions Criticality Noted Date [...] Diagnosed Date Rotator cuff tendonitis 09/30/2024 Sacroiliitis ([facility] V24) 09/30/2024 Segmental and somatic dysfunction of sacral tiki on 09/30/2024 Chronic pain of right hip 09/30/2024 Greater trochanteric bursitis 09/30/2024 Lumbar spondylosis 06/30/2024 Back pain 06/30/2024 Malignant neoplasm of left b reast ([facility] V24, [facility] V28) 06/30/2024 Chest pain 06/30/2024 Chronic cough 06/30/2024 History of colon polyps 06/30/2024 Neuropathy 06/30/2024 Pneumonitis 06/30/2024 Pulmonary embolism ([facility] V24, [facility] V28) Pulmonary nodules 06/30/2024 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[facility] V24, [facility] V28) Cancer Staging:Pathologic:Stage IIIB(pT2b, pN1, cM0) - [...] History Medical History Date Comments Breast cancer ([facility] V24, [facility] V28) Clotting disorder ([facility] V24) Family History Medical History Relation Name [...] patient's age to complete this topic Insurance [facility] [place] [id number] MEDICAID - [place] Care Teams Teller Supervisor Relationship Specialty Start Date End Date Adria Rubio MD [address] [place] [phone] PCP - General Internal Medicine 08/04/24
== END 2025-01-14 14:10 | disposition home or self-care (01) ==
LOC: HO.HMCC 13:25
PROVIDERS: PCP Internal Medicine; Visit Provider Internal Medicine
DX: R30.0 Dysuria (principal); C22.1 Intrahepatic bile duct carcinoma; I26.99 Other pulmonary embolism without acute cor pulmonale; Z09 Encounter for follow-up examination after completed treatment for conditions other than malignant neoplasm; M54.6 Pain in thoracic spine; G89.29 Other chronic pain; B35.4 Tinea corporis; Z79.01 Long term (current) use of anticoagulants; G62.0 Drug-induced polyneuropathy; T45.1X5A Adverse effect of antineoplastic and immunosuppressive drugs, initial encounter

== ENCOUNTER 2025-01-25 15:49 | Inpatient (IN) | payer OTHER, SELFPAY ==
[2025-01-25] VITALS (8 sets, daily range): BP systolic 112–150; BP diastolic 54–76; PULSE 84–110; RESP 17–22; TEMP 36.8–37.4; O2SAT 98–100; BMI 29.0
--- NOTE | ~2025-01-25 | CT_ITS ---
CLINICAL HISTORY: Susupect upper GI Bleed, also bliat flank pain CT abdomen and pelvis with and without contrast ( multiphase GI bleeding scan). Comparison: CT/SR - CT ABDOMEN PELVIS W IV CON - 12/30/24 15:51 EDT Findings: No consolidation or effusion. Innumerable hypoenhancing lesions throughout the liver with hepatomegaly with liver measuring 20 cm in craniocaudal dimension. Stable right kidney lower pole cysts. Status post cholecystectomy. Remainder of the solid organs are within normal limits. Circumferential wall thickening of the gastric antrum as well as duodenum with surrounding mesenteric stranding. Scattered diverticulosis of the descending and sigmoid colon. Moderate circumferential wall thickening of the sigmoid colon and rectum. Bowel loops are nondilated. No liquid stool or hypodense material within the bowel loops is seen to suggest acute gastrointestinal hemorrhage. Pelvic structures are intact. The bones are intact. IMPRESSION: Bowel loops are nondilated. No liquid stool or hyperdense material within the stomach or bowel loops to suggest active GI hemorrhage. Moderate circumferential wall thickening of the gastric antrum as well as the duodenum with mild surrounding mesenteric stranding may represent gastritis/duodenitis. Moderate circumferential wall thickening of the sigmoid colon and rectum, may represent sigmoiditis/duodenitis. Slight interval worsening of innumerable hepatic lesions may represent progression of known metastatic disease. This document has been electronically signed by: Sheron Lundy MD on 01/25/2025 21:03:47
--- NOTE | ~2025-01-25 | XR_ITS ---
EXAMINATION: XR CHEST 1 VIEW HISTORY: Shortness of breath COMPARISON: Comparison is made with the prior examination dated 01/25/2025. FINDINGS: A single AP portable view of the chest performed at 12:54 PM is submitted. Again seen is elevation of the hemidiaphragm. There is scarring at the right lung base. The left lung is clear. There is no pleural effusion, pneumothorax, or pulmonary vascular congestion. The heart is normal in size. The aorta is calcified. There is degenerative disc disease of the spine. XR/XR chest 1V IMPRESSION: No acute cardiopulmonary abnormality. Electronically signed by: Andi Tan MD 01/28/2025 01:09 PM EDT
--- NOTE | ~2025-01-25 | XR_ITS ---
CLINICAL HISTORY: dyspnea on exertion One view chest x-ray Comparison: CR/SR - XR CHEST 1V - 12/30/24 14:33 EDT Findings: The lungs are clear. Normal size heart. No acute fracture. IMPRESSION: 1. No acute findings. This document has been electronically signed by: Sheron Lundy MD on 01/25/2025 19:13:17
--- NOTE | 2025-01-25 16:46 | ED_ITS ---
HPI - General Adult General Chief complaint: Dyspnea Stated complaint: DIFF BREATHING Time Seen by Provider: 01/25/25 16:46 History of Present Illness ED Provider: Fausto BOYCE narrative: The patient is a 64-year-old female with a history of metastatic gallbladder adenocarcinoma. She has received chemotherapy, radiation therapy, and surgery (partial hepatectomy, cholecystectomy, and lymphadenectomy), she also has a history of left breast moderately differentiated carcinoma status post chemotherapy and radiation, also a history of PE/DVT. The patient was feeling short of breath last week. She saw Dr. Doan of Oncology. The patient had a hemoglobin of 7.5 last week. The patient was transfused 2 units of packed red blood cells 4 days ago on FridayJanuary 21. At that time Dr. Beasley encouraged the patient to go to the emergency room as well and be hospitalized but the patient chose to go home instead. She says that she may have felt slightly less short of breath the day after her transfusion on Friday but has had worsening shortness of breath Friday, yesterday, and today. No fevers. She feels that her extremities have become more swollen. Related Data Home Medications ?Medication ?Instructions ?Recorded ?Confirmed multivitamin-iron sulfate 15 1 tab PO DAILY 12/30/24 01/20/25 mg-folic acid 400 mcg tablet (Tab-A-Marissa Multivitamin w-iron) omeprazole 20 mg capsule,delayed 20 mg PO BID@0630,1630 12/30/24 01/20/25 release raloxifene 60 mg tablet 60 mg PO DAILY 12/31/24 01/20/25 Previous Rx's ?Medication ?Instructions ?Recorded bath stole #1 ea 01/17/21 compression stockings #1 ea 01/17/21 gabapentin 300 mg capsule 300 mg PO BEDTIME #90 caps 03/13/23 cholecalciferol (vitamin D3) 25 25 mcg PO DAILY #90 tabs 10/12/24 mcg (1,000 unit) tablet everolimus (antineoplastic) 10 mg 10 mg PO DAILY #30 tabs 12/30/24 tablet apixaban 5 mg (74 tabs) tablets in 5 mg PO BID #74 ea 01/02/25 a dose pack (Eliquis DVT-PE Treat 30D Start) ondansetron 4 mg disintegrating 4 mg PO Q8H PRN nausea and 01/02/25 tablet vomiting #30 tabs dexamethasone 0.5 mg/5 mL oral 1 mg (10 mL) PO QID #300 mL 01/03/25 solution everolimus (antineoplastic) 7.5 mg 7.5 mg PO DAILY #30 tabs 01/03/25 tablet exemestane 25 mg tablet (Aromasin) 25 mg PO DAILY #30 tabs 01/03/25 clotrimazole-betamethasone 1 1 appl topical ONCE 30 days #45 01/14/25 %-0.05 % topical cream grams triamcinolone acetonide 0.1 % 1 appl mucous membrane TID PRN 01/20/25 dental paste mouth sore #5 grams Allergies Allergy/AdvReac Type Severity Reaction Status Date / Time Penicillins [PENICILLINS] Allergy Severe ANAPHYLAXIS, Verified 01/25/25 16:01 swelling streptomycin [STREPTOMYCIN] Allergy Severe ANAPHYLAXIS Verified 01/25/25 16:01 [facility] Past Medical History Medical History Metastatic disease Metastatic cancer to liver Pulmonary embolism Metastasis from gallbladder cancer Pulmonary embolism Pulmonary nodules Pneumonitis Chest pain Chronic cough Vaginal yeast infection Breast lump on right side at 5 o'clock position History of colon polyps Breast cancer, left (~10/2016) Spondylosis Back pain Neuropathy Surgical History Hx of cholecystectomy History of esophagogastroduodenoscopy (EGD) History of lumpectomy of right breast (06/26/22) Hx of vein stripping Hx of colonoscopy (~10/2018) S/P breast lumpectomy Family History Family History Mother No problems noted. Father No problems noted. Other No family history of cancer Social History Social History Household Members: None Housing: Apartment Are you a primary child caregiver to a significant other at home: No Do you presently have visiting nurse or other home services: No Unable to assess alcohol history related to: Unknown Alcohol intake: never Comment: med with oxycodone 5 mg po in PACU Patient Tobacco Use Status: Never used Tobacco Smoked in Last 30 Days: No e-Cigarette/Vaping Use: Never Used Use of substances other than those prescribed or required for medical reasons: No Advance Directives: No Advance Directives Information Provided: No service: No Current occupational status: disabled Current occupation: rt handed Cognitive needs: No Hearing needs: No Vision needs: Yes Physical Exam ED Vital Signs: Vital Signs - 24 hr 01/25/25 15:58 01/25/25 18:00 01/25/25 19:49 Temperature 98.3 F 98.5 F Pulse Rate 110 H 106 H 109 H Respiratory Rate 17 18 20 Blood Pressure 134/67 120/56 L 129/61 Pulse Oximetry 100 99 98 Oxygen Delivery Method Room Air Room Air Room Air 01/25/25 20:05 01/25/25 20:27 Temperature 98.6 F 98.4 F Pulse Rate 105 H 105 H Respiratory Rate 20 20 Blood Pressure 124/54 L 129/60 Pulse Oximetry Oxygen Delivery Method BMI result Body Mass Index 29.0 Medications Administered Discontinued Medications Generic Name Dose Route Start Last Admin Trade Name Freq PRN Reason Stop Dose Admin Prothrombin Complex Concent ( 80 mls @ 480 mls/hr 01/25/25 18:18 01/25/25 19:01 Human) 2,000 unit/ IV IV 01/25/25 18:27 Infused Miscellaneous Supplies .Q10M ONE Infusion Iohexol 80 ml 01/25/25 19:46 01/25/25 19:47 Iohexol 350 Mg/Ml 100 Ml Infus..Btl IV 01/25/25 19:47 80 ml ONCE ONE Administration Pantoprazole Sodium 80 mg 01/25/25 18:10 01/25/25 18:50 Pantoprazole Sodium 40 Mg/10 Ml Vial IVPUSH 01/25/25 18:11 80 mg ONCE ONE Administration Medical Decision Making Lab Data 01/25/25 17:16 01/25/25 17:16 Labs: Lab Results 01/25/25 01/25/25 01/25/25 Range/Units 17:11 17:15 17:16 WBC 7.7 (4.8-10.8) X10*3/uL RBC 2.14 L (4.20-5.50) X10*6/uL Hgb 6.6 L* (12.0-16.0) g/dl Hct 19.0 L* (37.0-47.0) % MCV 88.8 (80.0-98.0) fL MCH 30.8 (27.0-33.0) pg MCHC 34.7 (31.0-35.0) g/dl RDW 13.8 (11.0-16.0) % Plt Count 23 L D (160-400) X10*3/uL MPV 11.8 (9.4-12.3) fL Immature Gran % (Auto) 0.5 H (0.0-0.4) % Neut % (Auto) 75.4 H (45-73) % Lymph % (Auto) 11.2 L (20-40) % Antelope % (Auto) 11.6 H (2-11) % Eos % (Auto) 0.9 (0-4) % Baso % (Auto) 0.4 (0-2) % Lymph # (Auto) 0.9 L (1.2-4.9) X10*3/uL Antelope # (Auto) 0.9 (0.1-1.2) X10*3/uL Eos # (Auto) 0.1 (0.0-0.4) X10*3/uL Baso # (Auto) 0.0 (0.0-0.2) X10*3/uL Abs Immat Gran (auto) 0.04 H (0.00-0.03) X10*3/uL Absolute Neuts (auto) 5.8 (2.0-8.3) x10*3/uL Absolute Nucleated RBC 0.000 (0.0-0.012) X10*3/uL Nucleated RBC % (auto) 0.0 (0.0-0.2) /100WBC Smear Tech's Comments VERIFIED PT 15.5 H (10.9-12.4) SEC INR 1.4 H (0.9-1.1) Sodium 130 L (135-145) mmol/L Potassium 4.3 (3.3-5.1) mmol/L Chloride 100 (96-108) mmol/L Carbon Dioxide 23 (22-29) mmol/L Anion Gap 11 L (12-20) BUN 24 H (9-16) mg/dL Creatinine 0.76 (0.5-1.4) mg/dL Estim Creat Clear Calc 70.4 Estimated GFR > 60 Random Glucose 158 H (60-115) mg/dL Calcium 7.9 L D (8.4-10.2) mg/dL Magnesium 2.1 (1.6-2.6) mg/dL Total Bilirubin 0.4 (0.0-1.0) mg/dL Direct Bilirubin 0.1 (0.0-0.5) mg/dL AST 145 H (5-31) U/L ALT 86 H (0-31) U/L Alkaline Phosphatase 177 H (39-117) U/L Troponin I High Sens 11.6 D (<3.5-17.0) ng/L C-Reactive Protein 6.97 H (< or = 0.50) mg/dL B-Natriuretic Peptide 95 (<100) pg/mL Total Protein 6.3 L (6.5-8.0) g/dL Albumin 3.0 L (3.5-5.0) g/dL Lipase 34 (8-78) U/L Influenza Type A (PCR) NEGATIVE (Negative) Influenza Type B (PCR) NEGATIVE (Negative) RSV RNA Qual (PCR) NEGATIVE (Negative) SARS-CoV-2 RNA (RT-PCR) NEGATIVE (Negative) Blood Type B Positive Antibody Screen NEGATIVE Crossmatch See Detail Discharge Plan Discharge Patient Disposition: Admitted As Inpatient Prescriptions: No Action gabapentin 300 mg capsule 300 mg PO BEDTIME Qty: 90 0RF cholecalciferol (vitamin D3) 25 mcg (1,000 unit) tablet 25 mcg PO DAILY Qty: 90 3RF everolimus (antineoplastic) 10 mg Tablet 10 mg PO DAILY Qty: 30 5RF dexamethasone 0.5 mg/5 mL Solution 1 mg PO QID Qty: 300 4RF Rx Instructions: swish and spit everolimus (antineoplastic) 7.5 mg Tablet 7.5 mg PO DAILY Qty: 30 3RF exemestane [Aromasin] 25 mg Tablet 25 mg PO DAILY Qty: 30 3RF Rx Instructions: must administer after a meal triamcinolone acetonide 0.1 % Paste 1 appl mucous membrane TID PRN (Reason: mouth sore) Qty: 5 1RF Rx Instructions: Apply to the right mouth corner after meals and at bedtime. Tab-A-Marissa Multivitamin w-iron 15 mg iron- 400 mcg tablet 1 tab PO DAILY omeprazole 20 mg capsule,delayed release(DR/EC) 20 mg PO BID@0630,1630 raloxifene 60 mg tablet 60 mg PO DAILY ondansetron 4 mg tablet,disintegrating 4 mg PO Q8H PRN (Reason: nausea and vomiting) Qty: 30 0RF Eliquis DVT-PE Treat 30D Start 5 mg (74 tabs) tablets,dose pack 5 mg PO BID Qty: 74 0RF (DME) bath stole See Rx Instructions .Route .MEDSUPPLY Qty: 1 0RF Rx Instructions: As directed (DME) compression stockings medium See Rx Instructions .Route .MEDSUPPLY Qty: 1 0RF Rx Instructions: As directed clotrimazole-betamethasone 1-0.05 % cream 1 appl topical ONCE 30 Days Qty: 45 0RF Print Language: Algerian
--- NOTE | 2025-01-25 17:02 | ECG_ITS ---
Test Reason : DYSPNEA Blood Pressure : */* mmHG Vent. Rate : 105 BPM Atrial Rate : 105 BPM P-R Int : 158 ms QRS Dur : 64 ms QT Int : 324 ms P-R-T Axes : 35 -20 16 degrees QTcB Int : 428 ms Sinus tachycardia Minimal voltage criteria for LVH, may be normal variant ( R in aVL ) Septal infarct , age undetermined Abnormal ECG When compared with ECG of 30-Dec-2024 18:25, Septal infarct is now Present QT has lengthened Referred By: Vasquez Lambert Electronically Signed By: SUNG CURRAN MD
[2025-01-25 17:44] LABS: Basophils Percent Auto 0.4 % (0-2); PLT CLUMP 1; SCAN SMEAR FLAG 1
[2025-01-25 17:46] LABS: Eosinophils Absolute Auto 0.1 X10*3/uL (0.0-0.4); Eosinophils Percent Auto 0.9 % (0-4); Imm Gran Abs Auto 0.04 X10*3/uL (0.00-0.03); Imm Gran Pct Auto 0.5 % (0.0-0.4); Lymphocytes Absolute Auto 0.9 X10*3/uL (1.2-4.9); Lymphocytes Percent Auto 11.2 % (20-40); MANUAL DIFF FLAG SCAN; Mean Corpuscular HGB Conc 34.7 g/dl (31.0-35.0); Mean Corpuscular Hemoglobin 30.8 pg (27.0-33.0); Mean Corpuscular Volume 88.8 fL (80.0-98.0); Mean Platelet Volume 11.8 fL (9.4-12.3); Monocytes Absolute Auto 0.9 X10*3/uL (0.1-1.2); Monocytes Percent Auto 11.6 % (2-11); Neutrophils Absolute Auto 5.8 x10*3/uL (2.0-8.3); Neutrophils Percent Auto 75.4 % (45-73); Red Blood Count 2.14 X10*6/uL (4.20-5.50); Red Cell Distribution Width 13.8 % (11.0-16.0)
[2025-01-25 17:47] LABS: Alanine Aminotransferase 86 U/L (0-31); Alkaline Phosphatase 177 U/L (39-117); Anion Gap 11 (12-20); Aspartate Amino Transferase 145 U/L (5-31); Bilirubin Direct 0.1 mg/dL (0.0-0.5); Bilirubin Total 0.4 mg/dL (0.0-1.0); Blood Urea Nitrogen 24 mg/dL (9-16); C Reactive Protein 6.97 mg/dL (< or = 0.50); Calcium 7.9 mg/dL (8.4-10.2); Carbon Dioxide 23 mmol/L (22-29); Chloride 100 mmol/L (96-108); Creatinine Clr Calc Pharmacy 70.4; Estimated Glomerular Filt Rate > 60; Glucose Random 158 mg/dL (60-115); Lipase 34 U/L (8-78); Magnesium 2.1 mg/dL (1.6-2.6); Potassium 4.3 mmol/L (3.3-5.1); Sodium 130 mmol/L (135-145); Total Protein 6.3 g/dL (6.5-8.0)
[2025-01-25 17:51] LABS: B Type Natriuretic Peptide 95 pg/mL (<100)
[2025-01-25 17:52] LABS: Troponin-I High Sensitivity 11.6 ng/L (<3.5-17.0)
[2025-01-25 17:58] LABS: Hemoglobin 6.6 g/dl (12.0-16.0)
[2025-01-25 18:00] LABS: White Blood Count 7.7 X10*3/uL (4.8-10.8)
[2025-01-25 18:05] LABS: INTERNATIONAL NORM RATIO 1.4 (0.9-1.1); Prothrombin Time 15.5 SEC (10.9-12.4)
[2025-01-25 18:11] LABS: Influenza A PCR NEGATIVE (Negative); Influenza B PCR NEGATIVE (Negative); Resp Syncy Virus RNA Qual PCR NEGATIVE (Negative); SARS COV2 PCR INHOUSE NEGATIVE (Negative)
[2025-01-25 18:26] LABS: Platelet Count 23 X10*3/uL (160-400); SLIDE REVIEW VERIFIED
[2025-01-25] MEDS: Pantoprazole Sodium 40 MG/10 ML VIAL 80 MG IVPUSH (18:50)
[2025-01-25] MEDS: Hum Prothrombin Cplx(PCC)4Fact 2,000 UNIT in Container,Empty 0 ML 480 UNIT IV (18:50)
--- NOTE | 2025-01-25 19:28 | PC.NURSE ---
Lab called that blood is ready. Pt currently en route to ct scan. Will obtain blood once pt returns from ct scan.
[2025-01-25] MEDS: iohexoL 350 MG/ML 100 ML INFUS..BTL 80 ML IV (19:47)
--- NOTE | 2025-01-25 20:30 | PC.NURSE ---
Pt aox4, calm and cooperative, resting at the bedside.VSS aside from HR 100's. First unit of RBC started. No signs of blood reaction. Pt tolerating well. Monitoring is ongoing.
--- NOTE | 2025-01-25 21:17 | P.HPHOSP_ITS ---
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 Patient asked her son to bring her to the emergency department due to her level of shortness of breath. Patient reported black stools to her oncologist on her visit 01/20/2025. Patient was transfused 2 units of blood through her oncologist but refused to be hospitalized. Patient had been started on Eliquis for previous PE back in early December 2024. Patient has history of blood clots and has been noncompliant with anticoagulation in the past. Patient does not present with hypoxia or chest pain. Patient is not tachypneic or tachycardic. Patient denies fever, chills, nausea or vomiting. Patient denies any recent falls. In the emergency room, H&H 6.6 and 19. Platelets 23,000. Patient did receive 1 dose of Kcentra in the emergency department. Patient also being transfused [address] of the abdomen and pelvis negative for active GI hemorrhage. Evidence of gastritis/duodenitis/sigmoiditis present on CT. Incidentally interval worsening of innumerable hepatic lesions may indicate progression of known metastatic disease. GI has been consulted. Eliquis remains on hold. Case management has been consulted as patient feels she needs increased support in the home setting as she has no help currently and lives alone. PT evaluation will be ordered in case patient could benefit from short-term rehab. Prior patient was living with her son in [place] and decided to obtain her own apartment. Will consult Oncology as patient does not appear to be ready to discuss hospice and palliative care. Patient has completed 2 weeks of her oral medication which was recently approved by [employer]. [facility] Review of Systems 2 Review of Systems: Patient denies any current chest pain, shortness of breath at rest or abdominal pain. Patient denies any reflux or GERD. Patient is not having any nausea or vomiting. Patient denies any burning or pain with urination. Patient denies any recent falls as well. Yes all other systems are reviewed and are negative [facility] Medical History Metastatic disease Metastatic cancer to liver Pulmonary embolism Metastasis from gallbladder cancer Pulmonary embolism Pulmonary nodules Pneumonitis Chest pain Chronic cough Vaginal yeast infection Breast lump on right side at 5 o'clock position History of colon polyps Breast cancer, left (~10/2016) Spondylosis Back pain Neuropathy Cognitive capacity: Alert and orientated x3 Functional capacity: uses cane/walker Family History Mother No problems noted. Father No problems noted. Other No family history of cancer Surgical History Hx of cholecystectomy History of esophagogastroduodenoscopy (EGD) History of lumpectomy of right breast (06/26/22) Hx of vein stripping Hx of colonoscopy (~10/2018) S/P breast lumpectomy Social History Household Members: None Housing: Apartment Are you a primary direct support professional caregiver to a significant other at home: No Do you presently have visiting nurse or other home services: No Unable to assess alcohol history related to: Unknown Alcohol intake: never Comment: med with oxycodone 5 mg po in PACU Patient Tobacco Use Status: Never used Tobacco Smoked in Last 30 Days: No e-Cigarette/Vaping Use: Never Used Use of substances other than those prescribed or required for medical reasons: No Advance Directives: No Advance Directives Information Provided: No service: No Current occupational status: disabled Current occupation: rt handed Cognitive needs: No Hearing needs: No Vision needs: Yes Ebola Risk: Travel/Contact With Anyone From Affected Area/s: No Has Patient Experienced Ebola Symptoms: No Meds Allergies Allergy/AdvReac Type Severity Reaction Status Date / Time Penicillins [PENICILLINS] Allergy Severe ANAPHYLAXIS, Verified 01/25/25 16:01 swelling streptomycin [STREPTOMYCIN] Allergy Severe ANAPHYLAXIS Verified 01/25/25 16:01 Active Medications: Current Medications Acetaminophen (Acetaminophen 325 Mg Tablet) 650 mg PO Q6H PRN PRN Reason: Pain, Mild 1-3,fever,headache Calcium Carbonate (Calcium Carbonate 750 Mg Tab.Chew) 750 mg PO Q4H PRN PRN Reason: Heartburn Magnesium Hydroxide (Milk Of Magnesia 30 Ml Oral.Susp) 30 ml PO DAILY PRN PRN Reason: Constipation Melatonin (Melatonin 3 Mg Tablet) 6 mg PO BEDTIME PRN PRN Reason: Insomnia Ondansetron HCl (Ondansetron Hcl 4 Mg/2 Ml Vial) 4 mg IVPUSH Q8H PRN PRN Reason: Nausea and Vomiting Sodium Chloride (0.9 % Sodium Chloride Flush 3 Ml Syringe) 3 ml IVFLUSH QSHIFT [facility] Home Medications ?Medication ?Instructions ?Recorded ?Confirmed ?Last Taken ?Type multivitamin-iron sulfate 15 1 tab PO DAILY 12/30/24 01/20/25 12/28/24 History mg-folic acid 400 mcg tablet (Tab-A-Marissa Multivitamin w-iron) omeprazole 20 mg capsule,delayed 20 mg PO BID@0630,1630 12/30/24 01/20/25 12/28/24 History release clotrimazole-betamethasone 1 1 appl topical DAILY 01/25/25 01/25/25 01/24/25 History %-0.05 % topical cream Physical Exam 2 Vital Signs and Narrative: Vital Signs: Last Vital Signs Temp 98.4 F 01/25/25 20:27 Pulse 105 H 01/25/25 20:27 Resp 20 01/25/25 20:27 BP 129/60 01/25/25 20:27 Pulse Ox 98 01/25/25 19:49 O2 Del Method Room Air 01/25/25 19:49 BMI result Body Mass Index 29.0 Alert and orientated X3, able to proivde partial hx. Neuro: CN II-X11 intact, no deficits, visual acuity intact EYES: PERRLA, EOM intact, sclera nonicteric ENT: hearing intact, no issues with swallowing, uvula midline, lips moist, nares patent no epistaxis Cardiac: S1 S2 RRR, tachy 109, no murmur, no JVD, no edema in Lower ext Pulmonary: lungs clear to auscultation B Abdominal: BS active in all 4 quadrants, no guarding, tenderness, rebounding, no hepatomegaly, no distension MSK: strength 4/5 upper and lower extremities : no CVA tenderness no bladder distension Extremities: no edema in lower extremities, PT and DP pulses palpable +2 Psych: mood stable, judgement and insight good Skin: intact Results Labs 01/25/25 17:16 01/25/25 17:16 Labs: Laboratory Results - last 24 hr 01/25/25 01/25/25 01/25/25 17:11 17:15 17:16 MCV 88.8 MCH 30.8 MCHC 34.7 RDW 13.8 Plt Count 23 L D MPV 11.8 Immature Gran % (Auto) 0.5 H Neut % (Auto) 75.4 H Lymph % (Auto) 11.2 L [place] % (Auto) 11.6 H Eos % (Auto) 0.9 Baso % (Auto) 0.4 Lymph # (Auto) 0.9 L [place] # (Auto) 0.9 Eos # (Auto) 0.1 Baso # (Auto) 0.0 Abs Immat Gran (auto) 0.04 H Absolute Neuts (auto) 5.8 Absolute Nucleated RBC 0.000 Nucleated RBC % (auto) 0.0 Smear Tech's Comments VERIFIED PT 15.5 H INR 1.4 H Anion Gap 11 L Estim Creat Clear Calc 70.4 Estimated GFR > 60 Random Glucose 158 H Calcium 7.9 L D Magnesium 2.1 Total Bilirubin 0.4 Direct Bilirubin 0.1 AST 145 H ALT 86 H Alkaline Phosphatase 177 H C-Reactive Protein 6.97 H B-Natriuretic Peptide 95 Total Protein 6.3 L Albumin 3.0 L Lipase 34 Influenza Type A (PCR) NEGATIVE Influenza Type B (PCR) NEGATIVE RSV RNA Qual (PCR) NEGATIVE SARS-CoV-2 RNA (RT-PCR) NEGATIVE Blood Type B Positive Antibody Screen NEGATIVE Crossmatch See Detail ECG Attestation: I personally reviewed and interpreted this ECG as follows: (Sinus tachycardia) Assessment and Plan (1) GIB (gastrointestinal bleeding): Qualifiers: GI bleed type/associated pathology: unspecified gastrointestinal hemorrhage type Qualified Code(s): K92.2 - Gastrointestinal hemorrhage, unspecified Status: Acute Plan Patient is a 64-year-old female with past medical history breast cancer diagnosed 2015 with Mets to the lung s/p lumpectomy, radiation and chemo current negative mammogram, 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 Patient dealing with metastatic gallbladder carcinoma and history of breast cancer with active metastases suspected to the lung. Patient recently diagnosed with PE early December 2024 on Eliquis. Acute GI bleed -patient received Kcentra in the emergency department, INR 1.4, patient had been on Eliquis for recent PE diagnosis -patient receiving 2 units of PRBCs, tolerating well -monitor H&H -GI consulted, last colonoscopy and EGD was September of 2024 at [facility] -NPO at midnight -Protonix 40 IV b.i.d. -stool for occult pending Gastritis/duodenitis/sigmoiditis -Protonix ordered -Avoid NSAIDS -will hold off on starting steroids and ABX at this time -GI consulted Anemia -acute versus chronic, secondary to acute blood loss -patient normally on elemental iron -we will check iron panel and vitamin B12 Recent PE -patient was started on Eliquis, has history of DVT and has been noncompliant with Eliquis in the past -may need to consider IR consultation and IVC filter if patient can no longer tolerate anticoagulation Thrombocytopenia -platelets 23,000 -we will consider transfusion once patient received 2 units of PRBCs and repeat platelet count is tested -no bruising or petechiae present on clinical exam -oncology consulted Metastatic gallbladder carcinoma with liver metastases -patient follows with [facility] and [facility] -Oncology consulted noting CT scan shows innumerable hepatic lesions currently present. -patient does not appear ready to discuss hospice and palliative care although consultation may be indicated for this admission as patient states she needs more help while living alone -case management consulted Transaminitis -secondary to metastatic gallbladder carcinoma likely -avoid hepatotoxic medications GERD -Protonix 40 IV b.i.d. History of breast cancer with current suspected lung metastases -per oncology Peripheral neuropathy secondary to chemotherapy -continue gabapentin Osteoarthritis -supportive care -pain management with low-dose Tylenol DVT prophylaxis: Held due to GI bleed PPI prophylaxis: Protonix IV 40 b.i.d. Med rec pending Full Code status, this was reviewed with patient Quality Stroke Does the patient have a stroke diagnosis?: No Reason for No Anti-thrombotic by Day Two: Contraindicated VTE Prior VTE?: No VTE Risk Level:: Medical - moderate - high VTE Device Contraindication: N/A - Device Ordered VTE Drug Contraindication: Treatment Not Indicated
--- NOTE | 2025-01-25 22:05 | ED_ITS ---
HPI - General Adult General Chief complaint: Dyspnea Stated complaint: DIFF BREATHING Time Seen by Provider: 01/25/25 16:46 History of Present Illness ED Provider: Fausto BOYCE narrative: The patient is a 64-year-old woman with a history of gallbladder cancer and more recently, breast cancer. She also has a history of pulmonary emboli in is on apixaban. The patient has been having problems with shortness of breath on exertion for the last 5 or 6 days. She reports that she has been having black stools for the same period of time. She was seen at the oncology office 4 days ago on Friday and reported black stools. She was given 2 units of packed red blood cells but refused to be hospitalized. She spent the weekend at her son's house. She continued taking her apixaban. Her last dose of apixaban was this morning. Today she felt sufficiently short of breath on exertion that she allowed her son to bring her to the emergency room. No fever, sweats, chills. She has a lot of body pains. She says that she has never had black stools before. Related Data Home Medications ?Medication ?Instructions ?Recorded ?Confirmed multivitamin-iron sulfate 15 1 tab PO DAILY 12/30/24 01/20/25 mg-folic acid 400 mcg tablet (Tab-A-Marissa Multivitamin w-iron) omeprazole 20 mg capsule,delayed 20 mg PO BID@0630,1630 12/30/24 01/20/25 release Previous Rx's ?Medication ?Instructions ?Recorded bath stole #1 ea 01/17/21 compression stockings #1 ea 01/17/21 gabapentin 300 mg capsule 300 mg PO BEDTIME #90 caps 03/13/23 cholecalciferol (vitamin D3) 25 25 mcg PO DAILY #90 tabs 10/12/24 mcg (1,000 unit) tablet apixaban 5 mg (74 tabs) tablets in 5 mg PO BID #74 ea 01/02/25 a dose pack (Eliquis DVT-PE Treat 30D Start) ondansetron 4 mg disintegrating 4 mg PO Q8H PRN nausea and 01/02/25 tablet vomiting #30 tabs dexamethasone 0.5 mg/5 mL oral 1 mg (10 mL) PO QID #300 mL 01/03/25 solution everolimus (antineoplastic) 7.5 mg 7.5 mg PO DAILY #30 tabs 01/03/25 tablet exemestane 25 mg tablet (Aromasin) 25 mg PO DAILY #30 tabs 01/03/25 clotrimazole-betamethasone 1 1 appl topical ONCE 30 days #45 01/14/25 %-0.05 % topical cream grams triamcinolone acetonide 0.1 % 1 appl mucous membrane TID PRN 01/20/25 dental paste mouth sore #5 grams Allergies Allergy/AdvReac Type Severity Reaction Status Date / Time Penicillins [PENICILLINS] Allergy Severe ANAPHYLAXIS, Verified 01/25/25 16:01 swelling streptomycin [STREPTOMYCIN] Allergy Severe ANAPHYLAXIS Verified 01/25/25 16:01 Review of Systems 2 Review of Systems: Yes all other systems are reviewed and are negative PMFSH Past Medical History Medical History Metastatic disease Metastatic cancer to liver Pulmonary embolism Metastasis from gallbladder cancer Pulmonary embolism Pulmonary nodules Pneumonitis Chest pain Chronic cough Vaginal yeast infection Breast lump on right side at 5 o'clock position History of colon polyps Breast cancer, left (~10/2016) Spondylosis Back pain Neuropathy Surgical History Hx of cholecystectomy History of esophagogastroduodenoscopy (EGD) History of lumpectomy of right breast (06/26/22) Hx of vein stripping Hx of colonoscopy (~10/2018) S/P breast lumpectomy Family History Family History Mother No problems noted. Father No problems noted. Other No family history of cancer Social History Social History Household Members: None Housing: Apartment Are you a primary medicare contact specialist to a significant other at home: No Do you presently have visiting nurse or other home services: No Unable to assess alcohol history related to: Unknown Alcohol intake: never Comment: med with oxycodone 5 mg po in PACU Patient Tobacco Use Status: Never used Tobacco Smoked in Last 30 Days: No e-Cigarette/Vaping Use: Never Used Use of substances other than those prescribed or required for medical reasons: No Advance Directives: No Advance Directives Information Provided: No service: No Current occupational status: disabled Current occupation: rt handed Cognitive needs: No Hearing needs: No Vision needs: Yes Physical Exam ED Vital Signs: Vital Signs - 24 hr 01/25/25 15:58 01/25/25 18:00 01/25/25 19:49 Temperature 98.3 F 98.5 F Pulse Rate 110 H 106 H 109 H Respiratory Rate 17 18 20 Blood Pressure 134/67 120/56 L 129/61 Pulse Oximetry 100 99 98 Oxygen Delivery Method Room Air Room Air Room Air 01/25/25 20:05 01/25/25 20:27 Temperature 98.6 F 98.4 F Pulse Rate 105 H 105 H Respiratory Rate 20 20 Blood Pressure 124/54 L 129/60 Pulse Oximetry Oxygen Delivery Method BMI result Body Mass Index 29.0 Const Other: The patient is a chronically ill-appearing 64-year-old. She is awake and alert. She looks quite chronically ill. HENMT Other: Face is symmetrical, mucous membranes moist. Eyes Other: Pupils are round equal, conjunctivae clear, no scleral icterus Neck Neck: Yes full ROM and Yes no JVD Resp Effort & Inspection: normal respiratory effort Auscultation: clear to auscultation bilaterally Cardio Rate: tachycardic Rhythm: regular rhythm Heart sounds: S1 normal heart sound present and S2 normal heart sound present GI Other: Diffuse abdominal tenderness. No real focal tenderness or rebound. The patient would not let me perform a rectal exam. Skin Other: Skin is pale and dry Neuro Other: The patient is awake and alert with a normal mental status. She moves her extremities normally and appropriately. She is neurologically intact. Extrem Other: The patient has a edematous upper and lower extremities. Medications Administered Discontinued Medications Generic Name Dose Route Start Last Admin Trade Name Haydenq PRN Reason Stop Dose Admin Prothrombin Complex Concent ( 80 mls @ 480 mls/hr 01/25/25 18:18 01/25/25 19:01 Human) 2,000 unit/ IV IV 01/25/25 18:27 Infused Miscellaneous Supplies .Q10M ONE Infusion Iohexol 80 ml 01/25/25 19:46 01/25/25 19:47 Iohexol 350 Mg/Ml 100 Ml Infus..Btl IV 01/25/25 19:47 80 ml ONCE ONE Administration Pantoprazole Sodium 80 mg 01/25/25 18:10 01/25/25 18:50 Pantoprazole Sodium 40 Mg/10 Ml Vial IVPUSH 01/25/25 18:11 80 mg ONCE ONE Administration Medical Decision Making Medical Decision Making [facility] Narrative: The patient is a 64-year-old female on apixaban because of previous pulmonary emboli who presents with dyspnea on exertion. She also reports 5-6 days of black stools. Her last dose of apixaban was this morning. She received 2 units of packed red cells 4 days ago on Friday. Today her hemoglobin is 6.6. The patient would not allow me to perform a digital rectal exam to confirm the presence of melena. She hoped to be able to who use a commode to provide a specimen. Nevertheless given the patient's drop in her hemoglobin and her report of black stools I suspect this is an upper GI bleed. She was given 80 mg of pantoprazole IV. Her apixaban (last dose this morning) was reversed with Kcentra. 2 units of packed red blood cells were ordered. Dr. Adhikari of Gastroenterology was notified. A CT scan for a bleeding steady was done which shows no definite acute active bleeding. The patient was tachycardic but otherwise hemodynamically stable. She will be admitted to the hospitalist service. Lab Data 01/25/25 17:16 01/25/25 17:16 Labs: Lab Results 01/25/25 01/25/25 01/25/25 Range/Units 17:11 17:15 17:16 WBC 7.7 (4.8-10.8) X10*3/uL RBC 2.14 L (4.20-5.50) X10*6/uL Hgb 6.6 L* (12.0-16.0) g/dl Hct 19.0 L* (37.0-47.0) % MCV 88.8 (80.0-98.0) fL MCH 30.8 (27.0-33.0) pg MCHC 34.7 (31.0-35.0) g/dl RDW 13.8 (11.0-16.0) % Plt Count 23 L D (160-400) X10*3/uL MPV 11.8 (9.4-12.3) fL Immature Gran % (Auto) 0.5 H (0.0-0.4) % Neut % (Auto) 75.4 H (45-73) % Lymph % (Auto) 11.2 L (20-40) % [place] % (Auto) 11.6 H (2-11) % Eos % (Auto) 0.9 (0-4) % Baso % (Auto) 0.4 (0-2) % Lymph # (Auto) 0.9 L (1.2-4.9) X10*3/uL [place] # (Auto) 0.9 (0.1-1.2) X10*3/uL Eos # (Auto) 0.1 (0.0-0.4) X10*3/uL Baso # (Auto) 0.0 (0.0-0.2) X10*3/uL Abs Immat Gran (auto) 0.04 H (0.00-0.03) X10*3/uL Absolute Neuts (auto) 5.8 (2.0-8.3) x10*3/uL Absolute Nucleated RBC 0.000 (0.0-0.012) X10*3/uL Nucleated RBC % (auto) 0.0 (0.0-0.2) /100WBC Smear Tech's Comments VERIFIED PT 15.5 H (10.9-12.4) SEC INR 1.4 H (0.9-1.1) Sodium 130 L (135-145) mmol/L Potassium 4.3 (3.3-5.1) mmol/L Chloride 100 (96-108) mmol/L Carbon Dioxide 23 (22-29) mmol/L Anion Gap 11 L (12-20) BUN 24 H (9-16) mg/dL Creatinine 0.76 (0.5-1.4) mg/dL Estim Creat Clear Calc 70.4 Estimated GFR > 60 Random Glucose 158 H (60-115) mg/dL Calcium 7.9 L D (8.4-10.2) mg/dL Magnesium 2.1 (1.6-2.6) mg/dL Total Bilirubin 0.4 (0.0-1.0) mg/dL Direct Bilirubin 0.1 (0.0-0.5) mg/dL AST 145 H (5-31) U/L ALT 86 H (0-31) U/L Alkaline Phosphatase 177 H (39-117) U/L Troponin I High Sens 11.6 D (<3.5-17.0) ng/L C-Reactive Protein 6.97 H (< or = 0.50) mg/dL B-Natriuretic Peptide 95 (<100) pg/mL Total Protein 6.3 L (6.5-8.0) g/dL Albumin 3.0 L (3.5-5.0) g/dL Lipase 34 (8-78) U/L Influenza Type A (PCR) NEGATIVE (Negative) Influenza Type B (PCR) NEGATIVE (Negative) RSV RNA Qual (PCR) NEGATIVE (Negative) SARS-CoV-2 RNA (RT-PCR) NEGATIVE (Negative) Blood Type B Positive Antibody Screen NEGATIVE Crossmatch See Detail Critical Care Time Critical Care Time Critical Care Time: Yes Total Critical Care Time: 35 Attestation: The patient was critically ill with a high probability of imminent or life- threatening deterioration. I spent greater than 30 minutes of discontinuous time evaluating the patient, delivering critical care at the bedside, discussing evaluating data with consultants. Critical care time does not include time spent performing separately billable procedures or teaching. Time spent performing critical care with 35 minutes. Discharge Plan Discharge Clinical Impression: Acute upper GI bleed, Melena, Severe anemia Patient Disposition: Admitted As Inpatient
--- NOTE | 2025-01-25 22:36 | PHA.MEDREC ---
Addendum entered by Jose Pop, [facility] 01/25/25 22:42: med rec reviewed Original Note: Pharmacy Consult ? Medication Reconciliation Pharmacy has completed the medication reconciliation. Pt has on hand Rx Bottles for Eliquis 5mg starter pack, Clotrimazole Cream, Everolimus, Exemestane and Tab-A-Marissa and was able to confirm her other medications. Pt states she stopped the Gabapentin 300mg tab ~2-3 days ago due to it giving her problems and stopped it herself.
[2025-01-25 23:40] LABS: OBS Int Ctl Valid YES; OBS1 POSITIVE (NEGATIVE)
[2025-01-26] VITALS (12 sets, daily range): BP systolic 98–153; BP diastolic 51–79; PULSE 90–113; RESP 14–22; TEMP 36.3–37.2; O2SAT 96–100; BMI 30.6; BMI 30.5
--- NOTE | 2025-01-26 00:30 | PC.NURSE ---
Pt resting at the bedside. No apparent distress noted. Second unit of RBC's started. Pt tolerating well. VSS. Call boateng within reach. Pt verbalizes frustration and accused nursing staff of not being present at bedside, stated 'I thought you were sleeping . This story writer had previously completed all care needs including blood administration, IV re-dressing, repositioning, and ensuring access to personal items. No new care needs were identified at the time of interaction. No signs of distress noted or unmet physical needs observed. Reassured patient that care needs had been addressed and barrel drainer and other nursing staff have been at the bedside on multiple occasions to provide assistance and answered pts call boateng as well. Explained that while this nurse may not always be physically present at the bedside, monitoring and care are ongoing. Encouraged pt to continue to use the call boateng for assistance from ED staff members. Will continue to monitor. distribution warehouse manager made aware.
[2025-01-26 00:50] LABS: Iron 66 mcg/dL (30-160); Percent Iron Saturation 33 % (15-50); Total Iron Binding Capacity 200 mcg/dL (228-428); Unsaturated Iron Binding 134 ug/dL
--- NOTE | 2025-01-26 03:44 | MHC.EDTECH ---
Patient up was assisted to walk to bathroom ,void ,urine sample collected and sent to lab ,Patient was moved to a hospital bed for comfort ,vitals taken ,Call boateng within Pt reach .
[2025-01-26 04:03] LABS: Appearance Urine Clear; Color Urine Yellow; Glucose Urine UA Negative (Negative); Leukocyte Esterase Urine Trace (Negative); Nitrite Urine Negative (Negative); Specific Gravity - Urine >= 1.030 (1.005-1.025); UMIC TRIGGER UACC YES; Urine Blood Negative (Negative); Urine Ketones Negative (Negative); Urine Protein Negative (Neg-Trace)
[2025-01-26 05:21] LABS: Bacteria Urine None Seen (None Seen); Hyaline Casts Urine 0-2 /LPF (0-2); RBC Urine 0-2 /HPF (0-2); Squamous Epithelial Cell Urine 0-2 /HPF (0-2); WBC Urine 0-5 /HPF (0-5)
[2025-01-26] MEDS: Pantoprazole Sodium 40 MG/10 ML VIAL IVPUSH ×2 (05:55→17:42)
--- NOTE | 2025-01-26 08:40 | PM.GICN ---
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 Patient noted fatigue and increasing SOB over last 3 d. She had reported black stools to oncologist and was given 2 units blood on outpatient basis. Patient denies fever, chills, nausea or vomiting. no chest or abdominal pain. Not taking aspirin or nsaids. She was given Kcentra in the emergency department and transfused 2 units of PRBCs. HGB been stable at around 10 g/dl from 7 g/dl. Review of Systems Review of Systems: Constitutional : No Weight loss, No Fever, No Chills ENT/Mouth : No sore throat, No Rhinorrhea Eyes: No Swelling, No Redness Cardiovascular : No Chest Pain, No SOB, No Edema Respiratory : No Cough, No Sputum, No Wheezing Gastrointestinal : see HPI Genitourinary : NO Dysuria, No Urinary Frequency, No Hematuria, No Urgency Musculoskeletal : no joint pain, No Myalgias, No Joint Swelling Skin : No Skin Lesions, No rash Neuro : No Weakness, No Numbness, No Dizziness, No Headache Psych : No Anxiety/Panic, No Depression Heme/Lymph: No Bruising, No Lymphadenopathy Endocrine : No Polyuria, No Polydipsia All other systems reviewed and are negative. [facility], [facility] Past Medical History Medical History (Updated 01/26/25 @ 11:57 by Sherif Mendez MD) Metastatic disease Metastatic cancer to liver Pulmonary embolism 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 Father No problems noted. Other No family history of cancer Surgical History Surgical History Hx of cholecystectomy History of esophagogastroduodenoscopy (EGD) History of lumpectomy of right breast (06/26/22) Hx of vein stripping Hx of colonoscopy (~10/2018) S/P breast lumpectomy Social History Social History Household Members: None Housing: Apartment Are you a primary hearing care practitioner to a significant other at home: No Do you presently have visiting nurse or other home services: No Unable to assess alcohol history related to: Unknown Alcohol intake: never Comment: med with oxycodone 5 mg po in PACU Patient Tobacco Use Status: Never used Tobacco e-Cigarette/Vaping Use: Never Used Second Hand Smoke Exposure: No service: No Current occupational status: disabled Current occupation: rt handed Cognitive needs: No Hearing needs: No Vision needs: Yes Travel History Ebola Risk: Travel/Contact With Anyone From Affected Area/s: No Has Patient Experienced Ebola Symptoms: No Meds Allergies Allergy/AdvReac Type Severity Reaction Status Date / Time Penicillins [PENICILLINS] Allergy Severe ANAPHYLAXIS, Verified 01/25/25 16:01 swelling streptomycin [STREPTOMYCIN] Allergy Severe ANAPHYLAXIS Verified 01/25/25 16:01 Active Medications: Current Medications Acetaminophen (Acetaminophen 325 Mg Tablet) 650 mg PO Q6H PRN PRN Reason: Pain, Mild 1-3,fever,headache Calcium Carbonate (Calcium Carbonate 750 Mg Tab.Chew) 750 mg PO Q4H PRN PRN Reason: Heartburn Magnesium Hydroxide (Milk Of Magnesia 30 Ml Oral.Susp) 30 ml PO DAILY PRN PRN Reason: Constipation Melatonin (Melatonin 3 Mg Tablet) 6 mg PO BEDTIME PRN PRN Reason: Insomnia Ondansetron HCl (Ondansetron Hcl 4 Mg/2 Ml Vial) 4 mg IVPUSH Q8H PRN PRN Reason: Nausea and Vomiting Pantoprazole Sodium (Pantoprazole Sodium 40 Mg/10 Ml Vial) 40 mg IVPUSH BID@0630,1630 VICKY Last Admin: 01/26/25 05:55 Dose: 40 mg Sodium Chloride (0.9 % Sodium Chloride Flush 3 Ml Syringe) 3 ml IVFLUSH QSHIFT [facility] Last Admin: 01/26/25 00:07 Dose: Not Given Home Medications ?Medication ?Instructions ?Recorded ?Confirmed ?Last Taken ?Type multivitamin-iron sulfate 15 1 tab PO DAILY 12/30/24 01/25/25 01/24/25 History mg-folic acid 400 mcg tablet (Tab-A-Marissa Multivitamin w-iron) omeprazole 20 mg capsule,delayed 20 mg PO BID@0630,1630 12/30/24 01/25/25 01/24/25 History release clotrimazole-betamethasone 1 1 appl topical DAILY 01/25/25 01/25/25 01/24/25 History %-0.05 % topical cream Physical Exam Vital Signs: Vital Signs: Last Vital Signs Temp 98.3 F 01/26/25 07:43 Pulse 93 01/26/25 07:43 Resp 18 01/26/25 07:43 BP 137/64 01/26/25 07:43 Pulse Ox 96 01/26/25 07:43 O2 Del Method Room Air 01/26/25 07:43 BMI result Body Mass Index 30.5 EXAM: GENERAL: The patient is well developed and nontoxic. VITAL SIGNS:see workflow HEENT: Nonicteric sclerae, PERRLA, EOMI. Oropharynx clear. Moist mucous membranes. Conjunctivae appear well perfused. No thyroid mass. CHEST: Chest wall is nontender. HEART: Regular rate and rhythm without murmurs. LUNGS: Clear to auscultation bilaterally. ABDOMEN: Soft, positive bowel sounds, nontender, irregular enlarged liver .no flank tenderness SKIN: No rash, no excessive bruising, petechiae, or purpura. NEUROLOGIC: Cranial nerves II-XII intact without motor/sensory deficit. Psych: normal affect Results Labs 01/26/25 08:26 01/26/25 08:26 Labs: Short CBC 01/25/25 Range/Units 17:16 WBC 7.7 (4.8-10.8) X10*3/uL Hgb 6.6 L* (12.0-16.0) g/dl Hct 19.0 L* (37.0-47.0) % Plt Count 23 L D (160-400) X10*3/uL BMP 01/25/25 17:16 Sodium 130 L Potassium 4.3 Chloride 100 Carbon Dioxide 23 BUN 24 H Creatinine 0.76 Calcium 7.9 L D Liver Function 01/25/25 Range/Units 17:16 Total Bilirubin 0.4 (0.0-1.0) mg/dL Direct Bilirubin 0.1 (0.0-0.5) mg/dL AST 145 H (5-31) U/L ALT 86 H (0-31) U/L Alkaline Phosphatase 177 H (39-117) U/L Albumin 3.0 L (3.5-5.0) g/dL Urine 01/26/25 Range/Units 03:48 Urine Color Yellow Urine Appearance Clear Urine pH 6.0 (5.0-9.0) Ur Specific [place] >= 1.030 H (1.005-1.025) Urine Protein Negative (Neg-Trace) mg/dL Urine Glucose (UA) Negative (Negative) mg/dL Imaging CT scan - abdomen: Attestation: I personally reviewed and interpreted this imaging study as follows: (atherosclerosis, thickened stomach and duodenum, ) Assessment and Plan (1) GIB (gastrointestinal bleeding): Qualifiers: GI bleed type/associated pathology: unspecified gastrointestinal hemorrhage type Qualified Code(s): K92.2 - Gastrointestinal hemorrhage, unspecified Status: Acute Plan 1/ Acute blood loss anemia in setting of eliquis and neoplasia with low platelets could be mucosal bleeding. primary team planning for IVC filter. PLAN: /1 - Seems to be much more stable, cont with PPI, allow PO diet as tolerated 2/ EGD tomorrow, keep NPO from midnight, maybe do later in the day after IVC filter. Procedures Date of Service Date of Service: 01/26/25
[2025-01-26 08:52] LABS: MANUAL DIFF FLAG NO
[2025-01-26 08:58] LABS: Basophils Percent Auto 0.4 % (0-2); Eosinophils Absolute Auto 0.1 X10*3/uL (0.0-0.4); Eosinophils Percent Auto 1.5 % (0-4); Hemoglobin 9.5 g/dl (12.0-16.0); Imm Gran Abs Auto 0.05 X10*3/uL (0.00-0.03); Imm Gran Pct Auto 0.6 % (0.0-0.4); Lymphocytes Absolute Auto 1.1 X10*3/uL (1.2-4.9); Lymphocytes Percent Auto 14.3 % (20-40); Mean Corpuscular HGB Conc 36.5 g/dl (31.0-35.0); Mean Corpuscular Hemoglobin 31.9 pg (27.0-33.0); Mean Corpuscular Volume 87.2 fL (80.0-98.0); Mean Platelet Volume 12.1 fL (9.4-12.3); Monocytes Absolute Auto 0.8 X10*3/uL (0.1-1.2); Monocytes Percent Auto 10.6 % (2-11); Neutrophils Absolute Auto 5.7 x10*3/uL (2.0-8.3); Neutrophils Percent Auto 72.6 % (45-73); Red Blood Count 2.98 X10*6/uL (4.20-5.50); Red Cell Distribution Width 13.1 % (11.0-16.0); White Blood Count 7.9 X10*3/uL (4.8-10.8)
[2025-01-26 09:11] LABS: Platelet Count 15 X10*3/uL (160-400)
[2025-01-26 09:14] LABS: Alanine Aminotransferase 73 U/L (0-31); Albumin Level 2.7 g/dL (3.5-5.0); Alkaline Phosphatase 149 U/L (39-117); Anion Gap 11 (12-20); Aspartate Amino Transferase 128 U/L (5-31); Blood Urea Nitrogen 18 mg/dL (9-16); Calcium 7.4 mg/dL (8.4-10.2); Carbon Dioxide 23 mmol/L (22-29); Chloride 106 mmol/L (96-108); Creatinine Clr Calc Pharmacy 91.3; Estimated Glomerular Filt Rate > 60; Glucose Random 108 mg/dL (60-115); Potassium 3.6 mmol/L (3.3-5.1); Sodium 136 mmol/L (135-145); Total Protein 5.4 g/dL (6.5-8.0)
[2025-01-26 09:44] LABS: Vitamin B12 > 2000 pg/mL (200-900)
[2025-01-26 10:17] LABS: INTERNATIONAL NORM RATIO 1.1 (0.9-1.1); Partial Thromboplastin Time 26.4 SEC (26.0-36.8); Prothrombin Time 12.1 SEC (10.9-12.4)
[2025-01-26] MEDS: 0.9 % Sodium Chloride Flush 3 ML SYRINGE IVFLUSH ×2 (11:13→17:41)
[2025-01-26] MEDS: Lactated Ringers 1,000 ML 60 ML IVCONT (11:15)
--- NOTE | 2025-01-26 11:54 | P.CONGS_ITS ---
History of Present Illness Consult details Consult date: 01/26/25 Reason for consult: other (Pulmonary embolisms) Narrative: 64-year-old female with past medical history of breast cancer diagnosed in 2016 Mets to gallbladder and liver has been on chemotherapy. She recently had a pulmonary embolism and a history of DVT. She presented to the hospital with shortness of breath and fatigue. She most recently saw her oncologist and at that time she was reporting black tarry stool. She was transfused 2 units of blood at that time. Patient has been on Eliquis from a PE back in December of 2024. On admission her platelet count was 23,000. She was once again found to be anemic and was Katie transfused. She is now for consultation regarding IVC filter placement. Of note she is scheduled for EGD today. Review of Systems 2 Review of Systems: Yes all other systems are reviewed and are negative Constitutional: Constitutional: Reports no additional constitutional complaints ENT: Reports Normal hearing present Cardiovascular: Cardiovascular: Denies chest pain, Denies chest pain at rest, Denies chest pain with activity and Denies pedal edema Respiratory: Respiratory: Denies cough Gastrointestinal: Gastrointestinal: Denies abdominal pain Musculoskeletal: Musculoskeletal: Denies abnormal gait, Denies muscle cramps and Denies radiating pain into limb Integumentary/Breasts: Skin/Breast: Denies skin ulcer and Denies wounds Neurologic: Reports Normal hearing present and Denies abnormal gait Psychiatric: Psychiatric: Reports no additional psychiatric complaints [facility] Past Medical History Medical History (Updated 01/26/25 @ 11:57 by Sherif Mendez MD) Metastatic disease Metastatic cancer to liver Pulmonary embolism 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 Father No problems noted. Other No family history of cancer Surgical History Surgical History Hx of cholecystectomy History of esophagogastroduodenoscopy (EGD) History of lumpectomy of right breast (06/26/22) Hx of vein stripping Hx of colonoscopy (~10/2018) S/P breast lumpectomy Social History Social History Household Members: None Housing: Apartment Are you a primary career technical education teacher to a significant other at home: No Do you presently have visiting nurse or other home services: No Unable to assess alcohol history related to: Unknown Alcohol intake: never Comment: med with oxycodone 5 mg po in PACU Patient Tobacco Use Status: Never used Tobacco e-Cigarette/Vaping Use: Never Used Second Hand Smoke Exposure: No service: No Current occupational status: disabled Current occupation: rt handed Cognitive needs: No Hearing needs: No Vision needs: Yes Travel History Ebola Risk: Travel/Contact With Anyone From Affected Area/s: No Has Patient Experienced Ebola Symptoms: No Meds Allergies Allergy/AdvReac Type Severity Reaction Status Date / Time Penicillins [PENICILLINS] Allergy Severe ANAPHYLAXIS, Verified 01/25/25 16:01 swelling streptomycin [STREPTOMYCIN] Allergy Severe ANAPHYLAXIS Verified 01/25/25 16:01 Active Medications: Current Medications Acetaminophen (Acetaminophen 325 Mg Tablet) 650 mg PO Q6H PRN PRN Reason: Pain, Mild 1-3,fever,headache Calcium Carbonate (Calcium Carbonate 750 Mg Tab.Chew) 750 mg PO Q4H PRN PRN Reason: Heartburn Lactated Ringer's (Lr) 1,000 mls @ 60 mls/hr IVCONT .[id number] [facility] Last Admin: 01/26/25 11:15 Dose: 60 mls/hr Magnesium Hydroxide (Milk Of Magnesia 30 Ml Oral.Susp) 30 ml PO DAILY PRN PRN Reason: Constipation Melatonin (Melatonin 3 Mg Tablet) 6 mg PO BEDTIME PRN PRN Reason: Insomnia Ondansetron HCl (Ondansetron Hcl 4 Mg/2 Ml Vial) 4 mg IVPUSH Q8H PRN PRN Reason: Nausea and Vomiting Pantoprazole Sodium (Pantoprazole Sodium 40 Mg/10 Ml Vial) 40 mg IVPUSH BID@0630,1630 [facility] Last Admin: 01/26/25 05:55 Dose: 40 mg Sodium Chloride (0.9 % Sodium Chloride Flush 3 Ml Syringe) 3 ml IVFLUSH QSHIFT [facility] Last Admin: 01/26/25 11:13 Dose: 3 ml Home Medications ?Medication ?Instructions ?Recorded ?Confirmed ?Last Taken ?Type multivitamin-iron sulfate 15 1 tab PO DAILY 12/30/24 01/25/25 01/24/25 History mg-folic acid 400 mcg tablet (Tab-A-Marissa Multivitamin w-iron) omeprazole 20 mg capsule,delayed 20 mg PO BID@0630,1630 12/30/24 01/25/25 01/24/25 History release clotrimazole-betamethasone 1 1 appl topical DAILY 01/25/25 01/25/25 01/24/25 History %-0.05 % topical cream Physical Exam 2 Vital Signs: Vital Signs: Last Vital Signs Temp 98.9 F 01/26/25 11:14 Pulse 98 01/26/25 11:14 Resp 18 01/26/25 11:14 BP 137/58 L 01/26/25 11:14 Pulse Ox 97 01/26/25 11:14 O2 Del Method Room Air 01/26/25 11:14 BMI result Body Mass Index 30.5 Const: General: cooperative, healthy appearing and comfortable O rientation/consciousness: oriented to person, oriented to place and oriented to time HEENT: Head: Yes normal to inspection Neck: Neck: Yes normal visual inspection Carotids: no bruits Chest: Chest palpation & inspection: normal inspection of the chest Resp: Effort & Inspection: normal respiratory effort and able to speak in complete sentences Auscultation: clear to auscultation bilaterally, no crackles, no rales, no rhonchi and no wheezes Cardio: Rate: regular rate Rhythm: regular rhythm Heart sounds: S1 normal heart sound present and S2 normal heart sound present Bruits: no carotid bruits Peripheral pulses: Peripheral pulses 2+ throughout GI: Inspection: Yes normal to inspection Skin: Wounds: no wounds Hair: normal Neuro: General: oriented to person, oriented to place and oriented to time Cranial nerves: Yes CN's II-XII intact bilaterally and Yes Normal hearing present Cognition (Neuro): normal cognition Motor exam (neuro): 5/5 motor strength present throughout Extrem: Other: venous exam: No significant superficial varicosities or spider telangiectasias, minimal edema General: No clubbing, No cyanosis and No edema Psych: Appearance: grossly normal Mental Status: mental status grossly normal Speech and movement: Normal speech and movement present Results Labs 01/26/25 08:26 01/26/25 08:26 Labs: Abnormal lab results 01/25/25 01/25/25 01/26/25 Range/Units 17:15 17:16 03:48 RBC 2.14 L (4.20-5.50) X10*6/uL Hgb 6.6 L* (12.0-16.0) g/dl Hct 19.0 L* (37.0-47.0) % MCHC (31.0-35.0) g/dl Plt Count 23 L D (160-400) X10*3/uL Immature Gran % (Auto) 0.5 H (0.0-0.4) % Neut % (Auto) 75.4 H (45-73) % Lymph % (Auto) 11.2 L (20-40) % [place] % (Auto) 11.6 H (2-11) % Lymph # (Auto) 0.9 L (1.2-4.9) X10*3/uL Abs Immat Gran (auto) 0.04 H (0.00-0.03) X10*3/uL PT 15.5 H (10.9-12.4) SEC INR 1.4 H (0.9-1.1) Sodium 130 L (135-145) mmol/L Anion Gap 11 L (12-20) BUN 24 H (9-16) mg/dL Random Glucose 158 H (60-115) mg/dL Calcium 7.9 L D (8.4-10.2) mg/dL TIBC 200 L (228-428) mcg/dL AST 145 H (5-31) U/L ALT 86 H (0-31) U/L Alkaline Phosphatase 177 H (39-117) U/L C-Reactive Protein 6.97 H (< or = 0.50) mg/dL Total Protein 6.3 L (6.5-8.0) g/dL Albumin 3.0 L (3.5-5.0) g/dL Vitamin B12 (200-900) pg/mL Ur Specific [place] >= 1.030 H (1.005-1.025) Ur Leukocyte Esterase Trace H (Negative) Crossmatch See Detail 01/26/25 Range/Units 08:26 RBC 2.98 L D (4.20-5.50) X10*6/uL Hgb 9.5 L D (12.0-16.0) g/dl Hct 26.0 L D (37.0-47.0) % MCHC 36.5 H (31.0-35.0) g/dl Plt Count 15 L* (160-400) X10*3/uL Immature Gran % (Auto) 0.6 H (0.0-0.4) % Neut % (Auto) (45-73) % Lymph % (Auto) 14.3 L (20-40) % [place] % (Auto) (2-11) % Lymph # (Auto) 1.1 L (1.2-4.9) X10*3/uL Abs Immat Gran (auto) 0.05 H (0.00-0.03) X10*3/uL PT (10.9-12.4) SEC INR (0.9-1.1) Sodium (135-145) mmol/L Anion Gap 11 L (12-20) BUN 18 H (9-16) mg/dL Random Glucose (60-115) mg/dL Calcium 7.4 L D (8.4-10.2) mg/dL TIBC (228-428) mcg/dL AST 128 H (5-31) U/L ALT 73 H (0-31) U/L Alkaline Phosphatase 149 H (39-117) U/L C-Reactive Protein (< or = 0.50) mg/dL Total Protein 5.4 L (6.5-8.0) g/dL Albumin 2.7 L (3.5-5.0) g/dL Vitamin B12 > 2000 H (200-900) pg/mL Ur Specific [place] (1.005-1.025) Ur Leukocyte Esterase (Negative) Crossmatch Short CBC 01/25/25 01/26/25 Range/Units 17:16 08:26 WBC 7.7 7.9 (4.8-10.8) X10*3/uL Hgb 6.6 L* 9.5 L D (12.0-16.0) g/dl Hct 19.0 L* 26.0 L D (37.0-47.0) % Plt Count 23 L D 15 L* (160-400) X10*3/uL BMP 01/25/25 01/26/25 17:16 08:26 Sodium 130 L 136 Potassium 4.3 3.6 Chloride 100 106 Carbon Dioxide 23 23 BUN 24 H 18 H Creatinine 0.76 0.60 Calcium 7.9 L D 7.4 L D Liver Function 01/25/25 01/26/25 Range/Units 17:16 08:26 Total Bilirubin 0.4 1.0 (0.0-1.0) mg/dL Direct Bilirubin 0.1 (0.0-0.5) mg/dL AST 145 H 128 H (5-31) U/L ALT 86 H 73 H (0-31) U/L Alkaline Phosphatase 177 H 149 H (39-117) U/L Albumin 3.0 L 2.7 L (3.5-5.0) g/dL Urine 01/26/25 Range/Units 03:48 Urine Color Yellow Urine Appearance Clear Urine pH 6.0 (5.0-9.0) Ur Specific [place] >= 1.030 H (1.005-1.025) Urine Protein Negative (Neg-Trace) mg/dL Urine Glucose (UA) Negative (Negative) mg/dL All other labs normal. Imaging Additional studies: CT from 12/30/2024 was positive for pulmonary embolism. Assessment and Plan (1) Pulmonary embolism: Qualifiers: Pulmonary embolism type: unspecified Chronicity: unspecified Acute cor pulmonale presence: unspecified Qualified Code(s): I26.99 - Other pulmonary embolism without acute cor pulmonale Status: Acute Plan In short patient will require vena cava filter. Risks benefits complications including but not limited to bleeding infection and clot were discussed in detail with the patient. She is well aware that she is at an increased risk of bleeding due to her thrombocytopenia. We will schedule her for tomorrow. Case discussed with the primary care team. Thank you for allowing us to assist in her care. Procedures Date of Service Date of Service: 01/26/25
--- NOTE | 2025-01-26 13:58 | MHC.CM.PN ---
EMR REVIEWED, PT W/STEFANY YODER CM MET W/PT WHO REPORTS SHE LIVES ALONE, DENIES USE OF DME/SERVICES AND IS REQUESTING ASSISTANCE AT HOME, TASK TO [facility] PLACED FOR HOUSEHOLD ASSISTANCE AND SHOWERING. TASK SENT TO [facility]. PT DENIES CURRENT USE OF DME/HOME SERVICES AND GOAL FOR DC IS HOME w/NEW [facility] FOR HOME HEALTH. PT VERIFIES PCP YANN HUANG AND REPORTS PT'S SON/PRIMARY CONTACT IS HER HCP, COPY REQUESTED.
--- NOTE | 2025-01-26 15:12 | PM.HEMONCCN ---
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 Patient asked her son to bring her to the emergency department due to her level of shortness of breath. Patient reported black stools to her oncologist on her visit 01/20/2025. Patient was transfused 2 units of blood through her oncologist but refused to be hospitalized. Patient had been started on Eliquis for previous PE back in early December 2024. Patient has history of blood clots and has been noncompliant with anticoagulation in the past. Patient does not present with hypoxia or chest pain. Patient is not tachypneic or tachycardic. Patient denies fever, chills, nausea or vomiting. Patient denies any recent falls. Since admission to the hospital, Eliquis and everolimus have been stopped. She urine received 2 units PRBC and unit platelet transfusion. She is scheduled to undergo endoscopy and IVC filter placement in the upcoming days. Review of Systems - Constitutional Reports as per HPI - Neurologic Reports hearing normal, Denies abnormal gait [facility] Medical History: Medical History (Last Reviewed 01/28/25 @ 10:15 by Kayla Lynn, LALITAR-L) Back pain Breast cancer, left Onset Date: ~10/2016 Breast lump on right side at 5 o'clock position Chest pain Chronic cough History of colon polyps Metastasis from gallbladder cancer Metastatic cancer to liver Metastatic disease Neuropathy Pneumonitis Pulmonary embolism Pulmonary embolism Pulmonary nodules Spondylosis Vaginal yeast infection Functional capacity: uses cane/walker Family History: Family History (Last Reviewed 01/25/25 @ 22:48 by MALORIE Romero) Mother No problems noted. Father No problems noted. Other No family history of cancer Surgical History: Surgical History (Last Reviewed 01/28/25 @ 10:15 by PHIL De La Torre-Tabby) History of esophagogastroduodenoscopy (EGD) History of lumpectomy of right breast Onset Date: 06/26/22 Hx of cholecystectomy Hx of colonoscopy Onset Date: ~10/2018 Hx of vein stripping S/P breast lumpectomy Social History: Social History (Last Reviewed 01/25/25 @ 22:48 by Kylah Garza [facility]) Living Situation History: Household Members: None Housing: Apartment Are you a primary resident care manager rn to a significant other at home: No Do you presently have visiting nurse or other home services: No Alcohol History: Unable to assess alcohol history related to: Unknown Tobacco History: Patient Tobacco Use Status: Never used Tobacco e-Cigarette/Vaping Use: Never Used Second Hand Smoke Exposure: No Occupation Assessmet: service: No Current occupational status: disabled Current occupation: rt handed - Travel History Ebola Risk: Travel/Contact With Anyone From Affected Area/s: No Has Patient Experienced Ebola Symptoms: No Home Medications and Allergies Current Medications: Current Medications Acetaminophen (Acetaminophen 325 Mg Tablet) 650 mg PO Q6H PRN PRN Reason: Pain, Mild 1-3,fever,headache Calcium Carbonate (Calcium Carbonate 750 Mg Tab.Chew) 750 mg PO Q4H PRN PRN Reason: Heartburn Lactated Ringer's (Lr) 1,000 mls @ 60 mls/hr IVCONT .[id number] [facility] Last Admin: 01/26/25 11:15 Dose: 60 mls/hr Sodium Chloride (Ns) 1,000 mls @ 100 mls/hr IVCONT .Q10H [facility] Magnesium Hydroxide (Milk Of Magnesia 30 Ml Oral.Susp) 30 ml PO DAILY PRN PRN Reason: Constipation Melatonin (Melatonin 3 Mg Tablet) 6 mg PO BEDTIME PRN PRN Reason: Insomnia Ondansetron HCl (Ondansetron Hcl 4 Mg/2 Ml Vial) 4 mg IVPUSH Q8H PRN PRN Reason: Nausea and Vomiting Pantoprazole Sodium (Pantoprazole Sodium 40 Mg/10 Ml Vial) 40 mg IVPUSH BID@0630,1630 [facility] Last Admin: 01/26/25 05:55 Dose: 40 mg Sodium Chloride (0.9 % Sodium Chloride Flush 3 Ml Syringe) 3 ml IVFLUSH QSHIFT [facility] Last Admin: 01/26/25 11:13 Dose: 3 ml Home Medications ?Medication ?Instructions ?Recorded ?Confirmed ?Type multivitamin-iron sulfate 15 1 tab PO DAILY 12/30/24 01/25/25 History mg-folic acid 400 mcg tablet (Tab-A-Marissa Multivitamin w-iron) omeprazole 20 mg capsule,delayed 20 mg PO BID@0630,1630 12/30/24 01/25/25 History release clotrimazole-betamethasone 1 1 appl topical DAILY 01/25/25 01/25/25 History %-0.05 % topical cream Allergies Allergy/AdvReac Type Severity Reaction Status Date / Time Penicillins [PENICILLINS] Allergy Severe ANAPHYLAXIS, Verified 01/25/25 16:01 swelling streptomycin [STREPTOMYCIN] Allergy Severe ANAPHYLAXIS Verified 01/25/25 16:01 Physical Exam Vital signs: Vital Signs Temp 98.3 F 01/26/25 13:35 Pulse 98 01/26/25 13:35 Resp 14 01/26/25 13:35 BP 125/58 L 01/26/25 13:35 Pulse Ox 97 01/26/25 11:14 O2 Del Method Room Air 01/26/25 11:14 Intake & Output 01/25/25 01/26/25 01/26/25 18:59 06:59 18:59 Intake Total 780 / 780 200 / 200 Balance 780 / 780 200 / 200 Intake: Intake, Oral Amount 200 / 200 Intake (Blood Product) Amount 700 / 700 0 / 0 Plt Aph Pas Pathreduced(E8342) 0 / 0 Unit [id number] Red Blood Cells (E0336) Unit 350 / 350 [id number] Red Blood Cells (E0336) Unit 350 / 350 [id number] Intake, IV Amount 80 / 80 Hum Prothrombin Cplx(PCC)4Fact 80 / 80 2,000 unit In Container,Empty 0 ml @ 480 mls/hr IV .Q10M ONE Rx#:[id number] Other: Meal Refused No NPO No Number of Unmeasured Voids 3 Urine Bathroom Urine Color Yellow Weight 72 kg 75.6 kg Weight in Grams 44471 Weight 75.6 kg - Constitutional Present: mild distress - Routine HEENT Exam Head: Present: normal inspection Eye: Present: EOMI, conjunctivae pale - Routine Neck Exam Present: supple. Absent: lymphadenopathy - Routine Respiratory Exam Absent: accessory muscle use, stridor, wheezes - Routine Cardiovascular Exam Cardiovascular: Present: S1, S2 - Routine Abdominal Exam Absent: distended, firm - Routine Extremities Exam Present: pulses intact - Routine Skin Exam Present: intact - Routine Neurological Exam Present: alert, oriented X3 Hem/Onc Consult Result - Labs CBC & Chem 7: 01/28/25 10:56 01/27/25 06:28 Labs: Short CBC 01/25/25 01/26/25 Range/Units 17:16 08:26 WBC 7.7 7.9 (4.8-10.8) X10*3/uL Hgb 6.6 L* 9.5 L D (12.0-16.0) g/dl Hct 19.0 L* 26.0 L D (37.0-47.0) % Plt Count 23 L D 15 L* (160-400) X10*3/uL BMP 01/25/25 01/26/25 17:16 08:26 Sodium 130 L 136 Potassium 4.3 3.6 Chloride 100 106 Carbon Dioxide 23 23 BUN 24 H 18 H Creatinine 0.76 0.60 Calcium 7.9 L D 7.4 L D Liver Function 01/25/25 01/26/25 Range/Units 17:16 08:26 Total Bilirubin 0.4 1.0 (0.0-1.0) mg/dL Direct Bilirubin 0.1 (0.0-0.5) mg/dL AST 145 H 128 H (5-31) U/L ALT 86 H 73 H (0-31) U/L Alkaline Phosphatase 177 H 149 H (39-117) U/L Albumin 3.0 L 2.7 L (3.5-5.0) g/dL Urine 01/26/25 Range/Units 03:48 Urine Color Yellow Urine Appearance Clear Urine pH 6.0 (5.0-9.0) Ur Specific [place] >= 1.030 H (1.005-1.025) Urine Protein Negative (Neg-Trace) mg/dL Urine Glucose (UA) Negative (Negative) mg/dL Assessment and Plan Patient Active problem list reviewed?: Yes (1) Metastatic cholangiocarcinoma Status: Chronic Assessment and plan: 1. This is a 64-year-old woman with remote history of left breast cancer status post chemo therapy and radiation following surgery who has since been diagnosed with metastatic gallbladder cancer/cholangiocarcinoma. She underwent R0 resection for stage IIIB (PT 2 B N1 M0) grade 2 gallbladder adenocarcinoma. She had involvement of 2 of 4 lymph nodes and lymphovascular invasion. She received adjuvant chemotherapy with gemcitabine plus capecitabine from April until June 2024. She received concurrent chemoradiation therapy with oral capecitabine from 08/2024 until September 2024. She had biopsy of liver mass performed 11/09/2024 at [facility] which revealed moderately differentiated adenocarcinoma, tumor cells positive for CK7, CK20 and CDX2 and negative for TTF 1 and MITUL 3 supporting morphological interpretation of clinically known gallbladder adenocarcinoma. CT abdomen/pelvis with contrast performed in November 2024 at [facility] revealed multiple new and enlarging hypoattenuating liver metastasis, largest in right lobe measuring 6.7 x 5.9 cm and several additional lesions. CT angiogram performed on 12/30/2024 was positive for pulmonary embolism in segmental left lower lobe pulmonary arteries, extensive and innumerable metastatic lesions throughout liver as well as numerous bilateral pulmonary nodules suspicious for metastasis. She has been on Eliquis for thromboembolism. Unfortunately she now presents with severe anemia as well as thrombocytopenia. She may have occult GI bleeding because of anticoagulation. She is scheduled to undergo upper endoscopy. Eliquis was on hold. She is also having IVC filter placed by Dr. Mendez. Her thrombocytopenia worsened significantly since she started everolimus. I have asked her to stop taking this medication. Thank you for the consult, will follow with you. - Time Spent With Patient Time Spent with Patient (in minutes): 25
--- NOTE | 2025-01-26 15:14 | HO.PM.IMPN ---
Subjective Subjective Date of Service: 01/26/25 Interval History: Seen and evaluated this morning Feels weak and tired PLT dropped to 15k Hb improved to 9.5 no reported bleeding Review of Systems Review of Systems: Yes all other systems are reviewed and are negative Physical Exam Vital Signs: Vital Signs: Last Vital Signs Temp 98.3 F 01/26/25 13:35 Pulse 98 01/26/25 13:35 Resp 14 01/26/25 13:35 BP 125/58 L 01/26/25 13:35 Pulse Ox 97 01/26/25 11:14 O2 Del Method Room Air 01/26/25 11:14 BMI result Body Mass Index 30.5 Const: Other: Constitutional : interactive, not in distress Cardiovascular : no JVP, no lower extremity edema Respiratory : bilateral chest movement, not in resp distress Gastrointestinal: soft, lax, Non tender Skin : Warm, Dry Neurological : Alert & oriented , No focal deficit Objective Data Active Medications Acetaminophen (Acetaminophen 325 Mg Tablet) 650 mg PO Q6H PRN PRN Reason: Pain, Mild 1-3,fever,headache Calcium Carbonate (Calcium Carbonate 750 Mg Tab.Chew) 750 mg PO Q4H PRN PRN Reason: Heartburn Lactated Ringer's (Lr) 1,000 mls @ 60 mls/hr IVCONT .[id number] [facility] Last Admin: 01/26/25 11:15 Dose: 60 mls/hr Documented By: TIFFANIE Sodium Chloride (Ns) 1,000 mls @ 100 mls/hr IVCONT .Q10H [facility] Magnesium Hydroxide (Milk Of Magnesia 30 Ml Oral.Susp) 30 ml PO DAILY PRN PRN Reason: Constipation Melatonin (Melatonin 3 Mg Tablet) 6 mg PO BEDTIME PRN PRN Reason: Insomnia Ondansetron HCl (Ondansetron Hcl 4 Mg/2 Ml Vial) 4 mg IVPUSH Q8H PRN PRN Reason: Nausea and Vomiting Pantoprazole Sodium (Pantoprazole Sodium 40 Mg/10 Ml Vial) 40 mg IVPUSH BID@0630,1630 [facility] Last Admin: 01/26/25 05:55 Dose: 40 mg Documented By: CALEB Sodium Chloride (0.9 % Sodium Chloride Flush 3 Ml Syringe) 3 ml IVFLUSH QSHIFT [facility] Last Admin: 01/26/25 11:13 Dose: 3 ml Documented By: TIFFANIE Labs 01/26/25 08:26 01/26/25 08:26 Labs: Laboratory Results - last 24 hr 01/25/25 01/25/25 01/25/25 17:11 17:15 17:16 MCV 88.8 MCH 30.8 MCHC 34.7 RDW 13.8 Plt Count 23 L D MPV 11.8 Immature Gran % (Auto) 0.5 H Neut % (Auto) 75.4 H Lymph % (Auto) 11.2 L [place] % (Auto) 11.6 H Eos % (Auto) 0.9 Baso % (Auto) 0.4 Lymph # (Auto) 0.9 L [place] # (Auto) 0.9 Eos # (Auto) 0.1 Baso # (Auto) 0.0 Abs Immat Gran (auto) 0.04 H Absolute Neuts (auto) 5.8 Absolute Nucleated RBC 0.000 Nucleated RBC % (auto) 0.0 Smear Tech's Comments VERIFIED PT 15.5 H INR 1.4 H APTT Anion Gap 11 L Estim Creat Clear Calc 70.4 Estimated GFR > 60 Random Glucose 158 H Calcium 7.9 L D Magnesium 2.1 Iron 66 TIBC 200 L % Saturation 33 Unsat Iron Binding 134 Total Bilirubin 0.4 Direct Bilirubin 0.1 AST 145 H ALT 86 H Alkaline Phosphatase 177 H C-Reactive Protein 6.97 H B-Natriuretic Peptide 95 Total Protein 6.3 L Albumin 3.0 L Lipase 34 Vitamin B12 Urine Color Urine Appearance Urine pH Ur Specific [place] Urine Protein Urine Glucose (UA) Urine Ketones Urine Blood Urine Nitrite Ur Leukocyte Esterase Urine RBC Urine WBC Ur Squamous Epith Cells Urine Bacteria Hyaline Casts Stool Occult Blood Influenza Type A (PCR) NEGATIVE Influenza Type B (PCR) NEGATIVE RSV RNA Qual (PCR) NEGATIVE SARS-CoV-2 RNA (RT-PCR) NEGATIVE Blood Type B Positive Antibody Screen NEGATIVE Crossmatch See Detail 01/25/25 01/26/25 01/26/25 23:19 03:48 08:26 MCV 87.2 MCH 31.9 MCHC 36.5 H RDW 13.1 Plt Count 15 L* MPV 12.1 Immature Gran % (Auto) 0.6 H Neut % (Auto) 72.6 Lymph % (Auto) 14.3 L [place] % (Auto) 10.6 Eos % (Auto) 1.5 Baso % (Auto) 0.4 Lymph # (Auto) 1.1 L [place] # (Auto) 0.8 Eos # (Auto) 0.1 Baso # (Auto) 0.0 Abs Immat Gran (auto) 0.05 H Absolute Neuts (auto) 5.7 Absolute Nucleated RBC 0.000 Nucleated RBC % (auto) 0.0 Smear Tech's Comments PT INR APTT Anion Gap 11 L Estim Creat Clear Calc 91.3 Estimated GFR > 60 Random Glucose 108 Calcium 7.4 L D Magnesium Iron TIBC % Saturation Unsat Iron Binding Total Bilirubin 1.0 Direct Bilirubin AST 128 H ALT 73 H Alkaline Phosphatase 149 H C-Reactive Protein B-Natriuretic Peptide Total Protein 5.4 L Albumin 2.7 L Lipase Vitamin B12 > 2000 H Urine Color Yellow Urine Appearance Clear Urine pH 6.0 Ur Specific [place] >= 1.030 H Urine Protein Negative Urine Glucose (UA) Negative Urine Ketones Negative Urine Blood Negative Urine Nitrite Negative Ur Leukocyte Esterase Trace H Urine RBC 0-2 Urine WBC 0-5 Ur Squamous Epith Cells 0-2 Urine Bacteria None Seen Hyaline Casts 0-2 Stool Occult Blood POSITIVE Influenza Type A (PCR) Influenza Type B (PCR) RSV RNA Qual (PCR) SARS-CoV-2 RNA (RT-PCR) Blood Type Antibody Screen Crossmatch 01/26/25 09:42 MCV MCH MCHC RDW Plt Count MPV Immature Gran % (Auto) Neut % (Auto) Lymph % (Auto) [place] % (Auto) Eos % (Auto) Baso % (Auto) Lymph # (Auto) [place] # (Auto) Eos # (Auto) Baso # (Auto) Abs Immat Gran (auto) Absolute Neuts (auto) Absolute Nucleated RBC Nucleated RBC % (auto) Smear Tech's Comments PT 12.1 D INR 1.1 APTT 26.4 D Anion Gap Estim Creat Clear Calc Estimated GFR Random Glucose Calcium Magnesium Iron TIBC % Saturation Unsat Iron Binding Total Bilirubin Direct Bilirubin AST ALT Alkaline Phosphatase C-Reactive Protein B-Natriuretic Peptide Total Protein Albumin Lipase Vitamin B12 Urine Color Urine Appearance Urine pH Ur Specific [place] Urine Protein Urine Glucose (UA) Urine Ketones Urine Blood Urine Nitrite Ur Leukocyte Esterase Urine RBC Urine WBC Ur Squamous Epith Cells Urine Bacteria Hyaline Casts Stool Occult Blood Influenza Type A (PCR) Influenza Type B (PCR) RSV RNA Qual (PCR) SARS-CoV-2 RNA (RT-PCR) Blood Type Antibody Screen Crossmatch Assessment and Plan (1) Pulmonary embolism: Status: Acute (2) Melena: Status: Acute (3) Severe anemia: Status: Acute (4) Acute upper GI bleed: Status: Acute Plan Patient is a 64-year-old female with past medical history breast cancer diagnosed 2015 with Mets to the lung s/p lumpectomy, radiation and chemo current negative mammogram, 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 Patient dealing with metastatic gallbladder carcinoma and history of breast cancer with active metastases suspected to the lung. Patient recently diagnosed with PE early December 2024 on Eliquis. Acute on chronic blood loss anemia 2/2 acute GI bleed received Brie Edwards held 2 units of PRBCs transfused, Hb improved to 9.5 monitor H&H GI consulted, EGD tomorrow\Friday NPO at midnight Protonix 40 IV b.i.d. Gastritis/duodenitis/sigmoiditis Protonix ordered Avoid NSAIDS hold off on starting steroids and ABX at this time GI following Recent PE DC Eliquis Vascular consultation for IVC filter placement tomorrow NPO post midnight acute on chronic Thrombocytopenia platelets to 15k, to transfuse 2 units, goal >30 Heme\Onc following Metastatic gallbladder carcinoma with liver metastases follows with [facility] Oncology and [facility] Oncology consulted noting CT scan shows innumerable hepatic lesions currently present. patient does not appear ready to discuss hospice and palliative care although consultation may be indicated for this admission as patient states she needs more help while living alone case management consulted Transaminitis secondary to metastatic gallbladder carcinoma likely avoid hepatotoxic medications History of breast cancer with current suspected lung metastases per oncology Peripheral neuropathy secondary to chemotherapy continue gabapentin Osteoarthritis supportive care pain management with low-dose Tylenol DVT prophylaxis: Held due to GI bleed PPI prophylaxis: Protonix IV 40 b.i.d. Full Code status, this was reviewed with patient Quality Stroke Does the patient have a stroke diagnosis?: No Reason for No Anti-thrombotic by Day Two: Contraindicated VTE Prior VTE?: No VTE Risk Level:: Medical - moderate - high VTE Device Contraindication: N/A - Device Ordered VTE Drug Contraindication: Treatment Not Indicated
[2025-01-27] VITALS (16 sets, daily range): BP systolic 98–146; BP diastolic 56–66; PULSE 68–99; RESP 16–24; TEMP 36.1–37.4; O2SAT 96–100; BMI 30.4
[2025-01-27] MEDS: Pantoprazole Sodium 40 MG/10 ML VIAL IVPUSH ×2 (05:13→17:49)
[2025-01-27 06:46] LABS: MANUAL DIFF FLAG NO
[2025-01-27 06:49] LABS: Basophils Percent Auto 0.5 % (0-2); Eosinophils Absolute Auto 0.1 X10*3/uL (0.0-0.4); Eosinophils Percent Auto 1.6 % (0-4); Hematocrit 22.8 % (37.0-47.0); Imm Gran Abs Auto 0.05 X10*3/uL (0.00-0.03); Imm Gran Pct Auto 0.7 % (0.0-0.4); Lymphocytes Absolute Auto 1.5 X10*3/uL (1.2-4.9); Mean Corpuscular HGB Conc 35.1 g/dl (31.0-35.0); Mean Corpuscular Volume 88.4 fL (80.0-98.0); Mean Platelet Volume 11.7 fL (9.4-12.3); Monocytes Absolute Auto 0.9 X10*3/uL (0.1-1.2); Monocytes Percent Auto 12.6 % (2-11); Neutrophils Absolute Auto 4.8 x10*3/uL (2.0-8.3); Neutrophils Percent Auto 64.6 % (45-73); Red Blood Count 2.58 X10*6/uL (4.20-5.50); Red Cell Distribution Width 13.3 % (11.0-16.0); White Blood Count 7.4 X10*3/uL (4.8-10.8)
[2025-01-27 06:50] LABS: Platelet Count 38 X10*3/uL (160-400)
[2025-01-27 06:54] LABS: INTERNATIONAL NORM RATIO 1.1 (0.9-1.1); Prothrombin Time 12.5 SEC (10.9-12.4)
[2025-01-27 07:09] LABS: Anion Gap 10 (12-20); Blood Urea Nitrogen 17 mg/dL (9-16); Calcium 7.7 mg/dL (8.4-10.2); Carbon Dioxide 27 mmol/L (22-29); Chloride 104 mmol/L (96-108); Creatinine Clr Calc Pharmacy 92.8; Estimated Glomerular Filt Rate > 60; Glucose Random 108 mg/dL (60-115); Potassium 3.6 mmol/L (3.3-5.1); Sodium 137 mmol/L (135-145)
[2025-01-27] MEDS: 0.9 % Sodium Chloride Flush 3 ML SYRINGE IVFLUSH ×2 (10:46→17:51)
--- NOTE | 2025-01-27 11:20 | P.CONAN_ITS ---
HPI - Anesthesia Eval Consult details Narrative: for EGD - GI bleeding PMFSH Active Problems Active Problems: All Active Problems Pulmonary embolism (Acute) Severe anemia (Acute) Melena (Acute) Acute upper GI bleed (Acute) GIB (gastrointestinal bleeding) (Acute) Chemotherapy-induced neuropathy (Acute) Recurrent pulmonary embolism (Acute) Hx of detention use of blood thinners (Acute) Tinea corporis (Acute) Chronic back pain (Acute) Metastatic cholangiocarcinoma (Chronic) Hospital discharge follow-up (Acute) Dysuria (Acute) Fatigue (Acute) Palpitations (Acute) DVT (deep venous thrombosis) (Acute) Cardiac arrhythmia (Acute) Cataract (Acute) Pre-op evaluation (Acute) 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Acute) Generalized osteoarthritis (Acute) Generalized postprandial abdominal pain (Acute) 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Acute) Urine incontinence (Acute) Radiculitis of left cervical region (Acute) Polyarthralgia (Acute) Muscle cramps (Acute) Neck pain (Acute) Shoulder pain, right (Acute) Pneumonia (Acute) Cough (Acute) Renal cyst (Acute) Pleurisy (Acute) Vaginal itching (Acute) Blood in urine (Acute) Upper abdominal pain (Acute) Patellofemoral arthritis of right knee (Acute) Encounter for annual routine gynecological examination (Acute) Strain of cervical portion of both trapezius muscles (Acute) Myofascial pain (Acute) Spondylosis of cervical region without myelopathy or radiculopathy (Acute) Cervical radiculopathy (Acute) Osteoarthritis of right knee (Acute) Knee pain, right (Acute) Osteoarthritis of multiple joints (Acute) Encounter for annual routine gynecological examination (Acute) Routine gynecological examination (Acute) Encounter for general adult medical examination with abnormal findings (Acute) Swelling of toe of both feet (Acute) Arthrosis (Acute) Serous otitis media (Acute) Renal cyst, right (Acute) Mid back pain on right side (Acute) Obesity (BMI 30.0-34.9) (Acute) Peripheral vascular disease (Acute) Dyspepsia (Acute) Breast cancer (Acute) Asymptomatic gallstones (Acute) Chronic diarrhea (Acute) Abdominal pain (Acute) Osteopenia (Acute) Osteoarthritis (Acute) Hyperlipidemia (Acute) Pulmonary nodules (Acute) Breast cancer, left (Acute ~10/2016) Pneumonitis (Acute) Chest pain (Acute) Chronic cough (Acute) History of colon polyps (Acute) Back pain (Acute) Neuropathy (Acute) Past Medical History Medical History (Updated 01/26/25 @ 15:48 by Nandini Sumner MD) Metastatic disease Metastatic cancer to liver Pulmonary embolism 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 Father No problems noted. Other No family history of cancer Family history of problems with anesthesia: No Surgical History Surgical History Hx of cholecystectomy History of esophagogastroduodenoscopy (EGD) History of lumpectomy of right breast (06/26/22) Hx of vein stripping Hx of colonoscopy (~10/2018) S/P breast lumpectomy History of Problems with Anesthesia: No Social History Social History Household Members: None Housing: Apartment Are you a primary vp care management to a significant other at home: No Do you presently have visiting nurse or other home services: No Unable to assess alcohol history related to: Unknown Alcohol intake: never Comment: med with oxycodone 5 mg po in PACU Patient Tobacco Use Status: Never used Tobacco e-Cigarette/Vaping Use: Never Used Second Hand Smoke Exposure: No service: No Current occupational status: disabled Current occupation: rt handed Cognitive needs: No Hearing needs: No Vision needs: Yes Meds Allergies Allergy/AdvReac Type Severity Reaction Status Date / Time Penicillins [PENICILLINS] Allergy Severe ANAPHYLAXIS, Verified 01/25/25 16:01 swelling streptomycin [STREPTOMYCIN] Allergy Severe ANAPHYLAXIS Verified 01/25/25 16:01 Active Medications: Current Medications Acetaminophen (Acetaminophen 325 Mg Tablet) 650 mg PO Q6H PRN PRN Reason: Pain, Mild 1-3,fever,headache Calcium Carbonate (Calcium Carbonate 750 Mg Tab.Chew) 750 mg PO Q4H PRN PRN Reason: Heartburn Sodium Chloride (Ns) 1,000 mls @ 100 mls/hr IVCONT .Q10H [facility] Last Admin: 01/27/25 10:48 Dose: Not Given Magnesium Hydroxide (Milk Of Magnesia 30 Ml Oral.Susp) 30 ml PO DAILY PRN PRN Reason: Constipation Melatonin (Melatonin 3 Mg Tablet) 6 mg PO BEDTIME PRN PRN Reason: Insomnia Ondansetron HCl (Ondansetron Hcl 4 Mg/2 Ml Vial) 4 mg IVPUSH Q8H PRN PRN Reason: Nausea and Vomiting Pantoprazole Sodium (Pantoprazole Sodium 40 Mg/10 Ml Vial) 40 mg IVPUSH BID@0630,1630 [facility] Last Admin: 01/27/25 05:13 Dose: 40 mg Sodium Chloride (0.9 % Sodium Chloride Flush 3 Ml Syringe) 3 ml IVFLUSH QSHIFT [facility] Last Admin: 01/27/25 10:46 Dose: 3 ml Home Medications ?Medication ?Instructions ?Recorded ?Confirmed ?Last Taken ?Type multivitamin-iron sulfate 15 1 tab PO DAILY 12/30/24 01/25/25 01/24/25 History mg-folic acid 400 mcg tablet (Tab-A-Marissa Multivitamin w-iron) omeprazole 20 mg capsule,delayed 20 mg PO BID@0630,1630 12/30/24 01/25/25 01/24/25 History release clotrimazole-betamethasone 1 1 appl topical DAILY 01/25/25 01/25/25 01/24/25 History %-0.05 % topical cream Exam Height,Weight and Vital Signs: Height 5 ft 2 in Weight 75.5 kg Last Vital Signs Temp 98.1 F 01/27/25 08:17 Pulse 93 01/27/25 08:17 Resp 20 01/27/25 08:17 BP 124/58 L 01/27/25 08:17 Pulse Ox 98 01/27/25 08:17 O2 Del Method Room Air 01/27/25 08:17 Pertinent Lab Results Pertinent Lab Results: Laboratory Tests 01/25/25 01/25/25 01/25/25 17:11 17:15 17:16 WBC 7.7 RBC 2.14 L Hgb 6.6 L* Hct 19.0 L* MCV 88.8 MCH 30.8 MCHC 34.7 RDW 13.8 Plt Count 23 L D MPV 11.8 Immature Gran % (Auto) 0.5 H Neut % (Auto) 75.4 H Lymph % (Auto) 11.2 L [place] % (Auto) 11.6 H Eos % (Auto) 0.9 Baso % (Auto) 0.4 Lymph # (Auto) 0.9 L [place] # (Auto) 0.9 Eos # (Auto) 0.1 Baso # (Auto) 0.0 Abs Immat Gran (auto) 0.04 H Absolute Neuts (auto) 5.8 Absolute Nucleated RBC 0.000 Nucleated RBC % (auto) 0.0 Smear Tech's Comments VERIFIED PT 15.5 H INR 1.4 H APTT Sodium 130 L Potassium 4.3 Chloride 100 Carbon Dioxide 23 Anion Gap 11 L BUN 24 H Creatinine 0.76 Estim Creat Clear Calc 70.4 Estimated GFR > 60 Random Glucose 158 H Calcium 7.9 L D Magnesium 2.1 Iron 66 TIBC 200 L % Saturation 33 Unsat Iron Binding 134 Total Bilirubin 0.4 Direct Bilirubin 0.1 AST 145 H ALT 86 H Alkaline Phosphatase 177 H Troponin I High Sens 11.6 D C-Reactive Protein 6.97 H B-Natriuretic Peptide 95 Total Protein 6.3 L Albumin 3.0 L Lipase 34 Carcinoembryonic Ag Vitamin B12 Urine Color Urine Appearance Urine pH Ur Specific [place] Urine Protein Urine Glucose (UA) Urine Ketones Urine Blood Urine Nitrite Ur Leukocyte Esterase Urine RBC Urine WBC Ur Squamous Epith Cells Urine Bacteria Hyaline Casts Stool Occult Blood Influenza Type A (PCR) NEGATIVE Influenza Type B (PCR) NEGATIVE RSV RNA Qual (PCR) NEGATIVE SARS-CoV-2 RNA (RT-PCR) NEGATIVE Blood Type B Positive Antibody Screen NEGATIVE Crossmatch See Detail 01/25/25 01/26/25 01/26/25 23:19 03:48 08:26 WBC 7.9 RBC 2.98 L D Hgb 9.5 L D Hct 26.0 L D MCV 87.2 MCH 31.9 MCHC 36.5 H RDW 13.1 Plt Count 15 L* MPV 12.1 Immature Gran % (Auto) 0.6 H Neut % (Auto) 72.6 Lymph % (Auto) 14.3 L [place] % (Auto) 10.6 Eos % (Auto) 1.5 Baso % (Auto) 0.4 Lymph # (Auto) 1.1 L [place] # (Auto) 0.8 Eos # (Auto) 0.1 Baso # (Auto) 0.0 Abs Immat Gran (auto) 0.05 H Absolute Neuts (auto) 5.7 Absolute Nucleated RBC 0.000 Nucleated RBC % (auto) 0.0 Smear Tech's Comments PT INR APTT Sodium 136 Potassium 3.6 Chloride 106 Carbon Dioxide 23 Anion Gap 11 L BUN 18 H Creatinine 0.60 Estim Creat Clear Calc 91.3 Estimated GFR > 60 Random Glucose 108 Calcium 7.4 L D Magnesium Iron TIBC % Saturation Unsat Iron Binding Total Bilirubin 1.0 Direct Bilirubin AST 128 H ALT 73 H Alkaline Phosphatase 149 H Troponin I High Sens C-Reactive Protein B-Natriuretic Peptide Total Protein 5.4 L Albumin 2.7 L Lipase Carcinoembryonic Ag Vitamin B12 > 2000 H Urine Color Yellow Urine Appearance Clear Urine pH 6.0 Ur Specific [place] >= 1.030 H Urine Protein Negative Urine Glucose (UA) Negative Urine Ketones Negative Urine Blood Negative Urine Nitrite Negative Ur Leukocyte Esterase Trace H Urine RBC 0-2 Urine WBC 0-5 Ur Squamous Epith Cells 0-2 Urine Bacteria None Seen Hyaline Casts 0-2 Stool Occult Blood POSITIVE Influenza Type A (PCR) Influenza Type B (PCR) RSV RNA Qual (PCR) SARS-CoV-2 RNA (RT-PCR) Blood Type Antibody Screen Crossmatch 01/26/25 01/27/25 09:42 06:28 WBC 7.4 RBC 2.58 L Hgb 8.0 L Hct 22.8 L MCV 88.4 MCH 31.0 MCHC 35.1 H RDW 13.3 Plt Count 38 L D MPV 11.7 Immature Gran % (Auto) 0.7 H Neut % (Auto) 64.6 Lymph % (Auto) 20.0 [place] % (Auto) 12.6 H Eos % (Auto) 1.6 Baso % (Auto) 0.5 Lymph # (Auto) 1.5 [place] # (Auto) 0.9 Eos # (Auto) 0.1 Baso # (Auto) 0.0 Abs Immat Gran (auto) 0.05 H Absolute Neuts (auto) 4.8 Absolute Nucleated RBC 0.000 Nucleated RBC % (auto) 0.0 Smear Tech's Comments PT 12.1 D 12.5 H INR 1.1 1.1 APTT 26.4 D Sodium 137 Potassium 3.6 Chloride 104 Carbon Dioxide 27 Anion Gap 10 L BUN 17 H Creatinine 0.59 Estim Creat Clear Calc 92.8 Estimated GFR > 60 Random Glucose 108 Calcium 7.7 L Magnesium Iron TIBC % Saturation Unsat Iron Binding Total Bilirubin Direct Bilirubin AST ALT Alkaline Phosphatase Troponin I High Sens C-Reactive Protein B-Natriuretic Peptide Total Protein Albumin Lipase Carcinoembryonic Ag 6571.80 Vitamin B12 Urine Color Urine Appearance Urine pH Ur Specific [place] Urine Protein Urine Glucose (UA) Urine Ketones Urine Blood Urine Nitrite Ur Leukocyte Esterase Urine RBC Urine WBC Ur Squamous Epith Cells Urine Bacteria Hyaline Casts Stool Occult Blood Influenza Type A (PCR) Influenza Type B (PCR) RSV RNA Qual (PCR) SARS-CoV-2 RNA (RT-PCR) Blood Type Antibody Screen Crossmatch Airway Mallampati Class: II TM Dist: <=3cm Neck ROM: Full Loose/Missing/Broken Teeth: No Heart: ok Lungs: ok Assessment and Plan Assessment Anesthesia Assessment: Anesthesia Plan Discussed and Chart Reviewed Final Anesthetic Review Family History of Problems with Anesthesia: No History of Problems with Anesthesia: No NPO: Yes ASA Class: IV Final Preanesthetic Review: No Changes in Pt Med Stat, Meds/Allgs Chart Reviewed, Consent Obtained/Reviewed and Anes Risks/Benef Reviewed Patient Risk: High Procedure Risk: Intermediate Anesthetic Plan Anesthetic Plan: Agree w/ Assess. and Plan and TIVA Disposition: Standard PACU
--- NOTE | 2025-01-27 12:43 | W.PM.OPN ---
Operative Note Operative Note Date of Service: 01/27/25 Narrative: Angiogram report from [facility] Preoperative diagnosis: Deep venous thrombosis Postoperative diagnosis: Same Procedure: 1. Ultrasound-guided right common femoral vein access 2. Inferior vena cavogram 3. Placement of inferior vena cava filter Surgeon:Sherif Mendez M.D., FACS, RPVI Language Specialist:None Anesthesia: Local only Specimens:none Drains:none Estimated blood loss: Less than 10 ml Radiation dose: 59.8 mGy Implant: [place] retrievable vena cava filter Indications: 64-year-old female history of metastatic cancer and thrombocytopenia was noted to have a GI bleed. Prior history of DVT PE. Due to the inability to anticoagulate she now presents for IVC filter placement The patient has signed the informed consent after reviewing risks, complications, benefits, and alternatives previously discussed with the patient. The patient was given the opportunity to ask any additional questions or voice any concerns. All questions were answered to the patient's satisfaction. Procedure in detail: Patient was brought to the angiography suite prior to which a time-out was called for patient identification and site verification. Bilateral groins were prepped and draped in the standard surgical fashion. Under ultrasound guidance right common femoral vein was punctured with micro puncture needle and wire. Subsequently a precision 5 Nepali sheath was then placed. [employer] wire was advanced to the level of the vena cava. Vena cavogram was then undertaken through the 5 Nepali sheath. This was a baseline study to define the variant anatomy, caval size, location and number of renal veins, and to evaluate for ileo caval thrombus. Under direct fluoroscopic guidance we exchanged out the 5 Nepali sheath for the [place] sheath. We brought the filter into position. This was then subsequently deployed. The inner cannula was then removed. Through the sheath a hand injection was performed to assess filter position. Once this was accomplished the sheath was then removed, and hemostasis was achieved with 10 minutes of direct compression. No immediate complications occurred and the patient was returned to the recovery suite with no complications Interpretation of films: 1. Ultrasound demonstrates appropriate femoral vein puncture. Image of which was saved. 2. There was no ileal caval thrombus noted 3. There are single renal veins bilaterally and the IVC is normal in caliber. There is no aberrant anatomy. 4. The filter was deployed appropriately and position below the lowest renal vein. Conclusion: 1. Successful placement of [place] IVC filter 2. Anticoagulation status: Resume anticoagulation when stable from a GI bleed perspective This note is constructed using voice recognition software. While every effort has been made to ensure accuracy, dial polisher errors may have been included. Thank you for allowing me to participate in the care of your patient. Yours sincerely, Sherif Mendez MD, FACS, R.P.V.I.
--- NOTE | 2025-01-27 12:52 | PM.GIPN ---
Subjective Subjective Date of Service: 01/27/25 Interval History: HGB went down agian still having melena no n/v just weakness going for IVC filter today Critical Care Time (minutes): 0 Physical Exam Vital Signs: Vital Signs: Last Vital Signs Temp 99.3 F 01/27/25 12:30 Pulse 95 01/27/25 12:30 Resp 16 01/27/25 12:30 BP 135/66 01/27/25 12:30 Pulse Ox 100 01/27/25 12:30 O2 Del Method Room Air 01/27/25 12:30 O2 Flow Rate 2 01/27/25 12:05 BMI result Body Mass Index 30.4 EXAM: GENERAL: The patient is well developed and nontoxic. VITAL SIGNS:see workflow HEENT: Nonicteric sclerae, PERRLA, EOMI. Oropharynx clear. Moist mucous membranes. Conjunctivae appear well perfused. No thyroid mass. CHEST: Chest wall is nontender. HEART: Regular rate and rhythm without murmurs. LUNGS: Clear to auscultation bilaterally. ABDOMEN: Soft, positive bowel sounds, nontender, enlarged irregular liver.no flank tenderness SKIN: No rash, no excessive bruising, petechiae, or purpura. NEUROLOGIC: Cranial nerves II-XII intact without motor/sensory deficit. Psych: normal affect Objective Data Labs 01/27/25 06:28 01/27/25 06:28 Labs: Laboratory Results - last 24 hr 01/25/25 01/27/25 17:15 06:28 WBC 7.4 RBC 2.58 L Hgb 8.0 L Hct 22.8 L MCV 88.4 MCH 31.0 MCHC 35.1 H RDW 13.3 Plt Count 38 L D MPV 11.7 Immature Gran % (Auto) 0.7 H Neut % (Auto) 64.6 Lymph % (Auto) 20.0 [place] % (Auto) 12.6 H Eos % (Auto) 1.6 Baso % (Auto) 0.5 Lymph # (Auto) 1.5 [place] # (Auto) 0.9 Eos # (Auto) 0.1 Baso # (Auto) 0.0 Abs Immat Gran (auto) 0.05 H Absolute Neuts (auto) 4.8 Absolute Nucleated RBC 0.000 Nucleated RBC % (auto) 0.0 PT 12.5 H INR 1.1 Sodium 137 Potassium 3.6 Chloride 104 Carbon Dioxide 27 Anion Gap 10 L BUN 17 H Creatinine 0.59 Estim Creat Clear Calc 92.8 Estimated GFR > 60 Random Glucose 108 Calcium 7.7 L Carcinoembryonic Ag 6571.80 Blood Type B Positive Antibody Screen NEGATIVE Crossmatch See Detail Procedures Date of Service Date of Service: 01/27/25 Progress Note: A&P Assessment and plan (1) Acute upper GI bleed: Status: Acute Plan 1/ Acute blood loss anemia, melena PLAN: 1/ EGD for assessment today could be ulcer, AVm, dieulafoy or malignant tumour with bleeding, been off NOAC and received Kcentra --cont with PPI for the meantime Time Spent With Patient Time: Total time managing care of this patient today ____ minutes. Quality Stroke Does the patient have a stroke diagnosis?: No Reason for No Anti-thrombotic by Day Two: Contraindicated VTE Prior VTE?: No VTE Risk Level:: Medical - moderate - high VTE Device Contraindication: N/A - Device Ordered VTE Drug Contraindication: Treatment Not Indicated
--- NOTE | 2025-01-27 14:19 | P.PNIM_ITS ---
Subjective Subjective Date of Service: 01/27/25 Interval History: Seen and evaluated this morning Feels better PLT >30k after transfusion IVC Filter and EGD planned Hb dropped to 8 reporting melena overnight Review of Systems Review of Systems: Yes all other systems are reviewed and are negative Physical Exam 2 Vital Signs: Vital Signs: Last Vital Signs Temp 98.7 F 01/27/25 13:30 Pulse 95 01/27/25 13:30 Resp 16 01/27/25 13:30 BP 144/60 H 01/27/25 13:30 Pulse Ox 100 01/27/25 13:30 O2 Del Method Room Air 01/27/25 13:30 O2 Flow Rate 2 01/27/25 12:05 BMI result Body Mass Index 30.4 Const: Other: Constitutional : interactive, not in distress Cardiovascular : no JVP, no lower extremity edema Respiratory : bilateral chest movement, not in resp distress Gastrointestinal: soft, lax, Non tender Skin : Warm, Dry Neurological : Alert & oriented , No focal deficit Objective Data Active Medications Acetaminophen (Acetaminophen 325 Mg Tablet) 650 mg PO Q6H PRN PRN Reason: Pain, Mild 1-3,fever,headache Calcium Carbonate (Calcium Carbonate 750 Mg Tab.Chew) 750 mg PO Q4H PRN PRN Reason: Heartburn Sodium Chloride (Ns) 1,000 mls @ 100 mls/hr IVCONT .Q10H [facility] Last Admin: 01/27/25 10:48 Dose: Not Given Documented By: EDI Non-Admin Reason: pt going to OR now Magnesium Hydroxide (Milk Of Magnesia 30 Ml Oral.Susp) 30 ml PO DAILY PRN PRN Reason: Constipation Melatonin (Melatonin 3 Mg Tablet) 6 mg PO BEDTIME PRN PRN Reason: Insomnia Naloxone HCl (Naloxone Hcl 0.4 Mg/Ml Vial) 0.04 mg IVPUSH Q5M PRN PRN Reason: Excessive sedation or RR < 8 Ondansetron HCl (Ondansetron Hcl 4 Mg/2 Ml Vial) 4 mg IVPUSH Q8H PRN PRN Reason: Nausea and Vomiting Pantoprazole Sodium (Pantoprazole Sodium 40 Mg/10 Ml Vial) 40 mg IVPUSH BID@0630,1630 [facility] Last Admin: 01/27/25 05:13 Dose: 40 mg Documented By: CAS Sodium Chloride (0.9 % Sodium Chloride Flush 3 Ml Syringe) 3 ml IVFLUSH QSHIFT [facility] Last Admin: 01/27/25 10:46 Dose: 3 ml Documented By: EDI Labs 01/27/25 06:28 01/27/25 06:28 Labs: Laboratory Results - last 24 hr 01/25/25 01/27/25 17:15 06:28 MCV 88.4 MCH 31.0 MCHC 35.1 H RDW 13.3 Plt Count 38 L D MPV 11.7 Immature Gran % (Auto) 0.7 H Neut % (Auto) 64.6 Lymph % (Auto) 20.0 [place] % (Auto) 12.6 H Eos % (Auto) 1.6 Baso % (Auto) 0.5 Lymph # (Auto) 1.5 [place] # (Auto) 0.9 Eos # (Auto) 0.1 Baso # (Auto) 0.0 Abs Immat Gran (auto) 0.05 H Absolute Neuts (auto) 4.8 Absolute Nucleated RBC 0.000 Nucleated RBC % (auto) 0.0 PT 12.5 H INR 1.1 Anion Gap 10 L Estim Creat Clear Calc 92.8 Estimated GFR > 60 Random Glucose 108 Calcium 7.7 L Carcinoembryonic Ag 6571.80 Blood Type B Positive Antibody Screen NEGATIVE Crossmatch See Detail Assessment and Plan (1) Pulmonary embolism: Status: Acute (2) Severe anemia: Status: Acute (3) Melena: Status: Acute (4) Acute upper GI bleed: Status: Acute Plan Patient is a 64-year-old female with past medical history breast cancer diagnosed 2015 with Mets to the lung s/p lumpectomy, radiation and chemo current negative mammogram, 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 Patient dealing with metastatic gallbladder carcinoma and history of breast cancer with active metastases suspected to the lung. Patient recently diagnosed with PE early December 2024 on Eliquis. Acute on chronic blood loss anemia 2/2 acute GI bleed received Kcentra Eliquis held 2 units of PRBCs transfused, Hb dropped to 8 with ongoing melena monitor H&H GI consulted, EGD today NPO Protonix 40 IV b.i.d. Recent PE DC Eliquis Vascular placed IVC filter Gastritis/duodenitis/sigmoiditis Protonix ordered Avoid NSAIDS hold off on starting steroids and ABX at this time GI following acute on chronic Thrombocytopenia platelets improved after transfusion of 2 units, goal >30 Heme\Onc following Metastatic gallbladder carcinoma with liver metastases follows with [facility]cology and [facility] On[facility] consulted noting CT scan shows innumerable hepatic lesions currently present. patient does not appear ready to discuss hospice and palliative care although consultation may be indicated for this admission as patient states she needs more help while living alone case management consulted Transaminitis secondary to metastatic gallbladder carcinoma likely avoid hepatotoxic medications History of breast cancer with current suspected lung metastases per oncology Peripheral neuropathy secondary to chemotherapy continue gabapentin Osteoarthritis supportive care pain management with low-dose Tylenol DVT prophylaxis: Held due to GI bleed PPI prophylaxis: Protonix IV 40 b.i.d. Full Code status, this was reviewed with patient Quality Stroke Does the patient have a stroke diagnosis?: No Reason for No Anti-thrombotic by Day Two: Contraindicated VTE Prior VTE?: No VTE Risk Level:: Medical - moderate - high VTE Device Contraindication: N/A - Device Ordered VTE Drug Contraindication: Treatment Not Indicated
--- NOTE | 2025-01-27 15:02 | W.PM.OPN ---
Operative Note Operative Note Date of Service: 01/27/25 Narrative: Procedure Description: EGD Indication: Gi bleeding Anesthesia: MAC FLEXIBLE TRANSORAL UPPER GASTROINTESTINAL ENDOSCOPY UPPER ENDOSCOPY Consent: Indications for the procedure and potential complications of bleeding, perforation, reaction to medications and missed diagnosis were discussed with the patient and informed consent was obtained. Instrument: Olympus GIF H 190 J mid size upper endoscope Monitoring: Vital signs and clinical assessment, continuous EKG monitoring, Pulse oximetry, Carbon Dioxide monitoring and blood pressure monitoring were done throughout the procedure. Procedure: The patient was placed in the left lateral decubitis position and pre-procedure medications were administered and a bite block was placed. The endoscope was inserted into the mouth and advanced under direct vision to the third part of duodenum. A careful inspection was made as the upper endoscope was withdrawn including a retroflexed examination of the proximal stomach; Findings and interventions are described below. Findings: Larynx:normal Esophagus: GE junction at 38 cm, diaphragm hiatus at 38 cm, normal mucosa Stomach: erythematous areas in the antrum that were oozing blood consistent with GAVE . these were ablated with APC and then hemospray was applied. Grade 2 flap valve on retroflexed examination of the cardia. Duodenum: At duodenal sweep there was a punctate area of continuous oozing, clip applied and then sprayed with nexpowder Intervention: APC and hemospray Impression/Findings: GAVE dieulafoy PLAN: Cont with PPI can use sucralfate as well 1 g BID -but different time to PPI try to get plts >50 iron supplements if ongoing issues then may need repeat EGD with APC
[2025-01-27 17:01] LABS: Hematocrit 23.2 % (37.0-47.0); Hemoglobin 8.3 g/dl (12.0-16.0); Mean Corpuscular HGB Conc 35.8 g/dl (31.0-35.0); Mean Corpuscular Volume 86.6 fL (80.0-98.0); Mean Platelet Volume 11.5 fL (9.4-12.3); PLT CLUMP 1; Red Blood Count 2.68 X10*6/uL (4.20-5.50); Red Cell Distribution Width 13.5 % (11.0-16.0)
[2025-01-27 17:03] LABS: Platelet Count 36 X10*3/uL (160-400); White Blood Count 10.2 X10*3/uL (4.8-10.8)
[2025-01-27] MEDS: Morphine Sulfate 2 MG/ML CARTRIDGE IVPUSH (17:49)
--- NOTE | 2025-01-27 19:39 | PC.NURSE ---
Pt had a short episode of 3rd degree heart block at 1444. She was still down for her endoscopy and call made to postop and verbally reported to staff. Dr. Rawls also made aware and communication with PACU forwarded to him. CIGAR ROLLER was at the bedside and responded to the alert. She stated pt had just vomited and due to timing had likely been vomiting when episode happened. Per PACU monorail charger operator Dr. Nelson was at bedside. Pt then reported chest pain which is reproducible with no further rhythm changes and likely due to post endoscopy. Pt back to unit soon after and was reporting 10/10 epigastric area pain. Pt stated I have a lot of gas in my stomach. I think it is from the procedure. Dr. Rawls aware of all and down to see patient. Morphine given with pt initially vomiting. She denied nausea and declined zofran. She reported improvement from pain. No further issues noted.
[2025-01-28] VITALS (13 sets, daily range): BP systolic 110–166; BP diastolic 57–99; PULSE 91–103; RESP 14–20; TEMP 36.3–37.2; O2SAT 96–100; BMI 30.2
[2025-01-28] MEDS: Pantoprazole Sodium 40 MG/10 ML VIAL IVPUSH ×2 (06:07→16:26)
[2025-01-28] MEDS: Sucralfate 1 GM TABLET PO ×2 (09:59→16:26)
[2025-01-28] MEDS: 0.9 % Sodium Chloride Flush 3 ML SYRINGE IVFLUSH (10:05)
--- NOTE | 2025-01-28 10:37 | P.PNVS_ITS ---
Subjective Subjective Date of Service: 01/28/25 Interval history: Susana is doing ok this morning. She is to advance to regular diet today per GI. She has no new concerns today. Physical Exam Vital Signs: Vital Signs: Last Vital Signs Temp 97.9 F 01/28/25 07:15 Pulse 99 01/28/25 07:15 Resp 14 01/28/25 07:15 BP 126/61 01/28/25 07:15 Pulse Ox 98 01/28/25 07:15 O2 Del Method Room Air 01/28/25 07:15 O2 Flow Rate 2 01/27/25 12:05 BMI result Body Mass Index 30.2 Const: General: comfortable and no acute distress Orientation/consciousness: patient oriented x3 HEENT: Ears: hearing grossly normal bilaterally Resp: Effort & Inspection: normal respiratory effort and able to speak in complete sentences Auscultation: clear to auscultation bilaterally Cardio: Rate: regular rate Rhythm: regular rhythm Heart sounds: S1 cindy l heart sound present and S2 normal heart sound present Bruits: no abdominal aortic bruits, no carotid bruits, no femoral bruits and no renal bruits GI: Palpation (GI): No Abdominal aortic bruit present : Other: Right groin: C/D/I. No bleeding or drainage noted. Neuro: General: patient oriented x3 Cranial nerves: Yes CN's II-XII intact bilaterally Progress Note: A&P Assessment and plan (1) DVT (deep venous thrombosis): Status: Acute Assessment and Plan: Susana is s/p IVC filter placement yesterday with Dr Mendez. She is also s/p EGD yesterday. She remains with thrombocytopenia; her platelet count this am is 36. We recommend restarting AC when her platelet count stabilizes and she is stable from a GI standpoint. GI states to resume when her platelet count >100 and her Hgb remains stable. We will continue to monitor. If there are any questions or concerns, please do not hesitate to reach out to us. Time Spent With Patient Time: Total time managing care of this patient today ____ minutes. Procedures Date of Service Date of Service: 01/28/25 Quality Stroke Does the patient have a stroke diagnosis?: No Reason for No Anti-thrombotic by Day Two: Contraindicated VTE Prior VTE?: No VTE Risk Level:: Medical - moderate - high VTE Device Contraindication: N/A - Device Ordered VTE Drug Contraindication: Treatment Not Indicated
[2025-01-28 11:12] LABS: Hemoglobin 7.1 g/dl (12.0-16.0); Mean Corpuscular HGB Conc 35.1 g/dl (31.0-35.0); Mean Corpuscular Volume 88.2 fL (80.0-98.0); Mean Platelet Volume 11.6 fL (9.4-12.3); Red Blood Count 2.29 X10*6/uL (4.20-5.50); Red Cell Distribution Width 13.4 % (11.0-16.0); White Blood Count 8.1 X10*3/uL (4.8-10.8)
[2025-01-28 11:28] LABS: Hematocrit 20.2 % (37.0-47.0); Platelet Count 29 X10*3/uL (160-400)
[2025-01-28] MEDS: Simethicone 80 MG TAB.CHEW PO ×3 (11:37→22:03)
--- NOTE | 2025-01-28 11:44 | HO.PM.IMPN ---
Subjective Subjective Date of Service: 01/28/25 Interval History: Seen and evaluated this morning Feels worse this morning vomiting overnight, i witnessed episode of hematemesis PLT <30k Hb dropped to 7.1 reporting melena overnight Review of Systems Review of Systems: Yes all other systems are reviewed and are negative Physical Exam Vital Signs: Vital Signs: Last Vital Signs Temp 98.7 F 01/28/25 11:27 Pulse 95 01/28/25 11:27 Resp 20 01/28/25 11:27 BP 136/62 01/28/25 11:27 Pulse Ox 99 01/28/25 11:27 O2 Del Method Room Air 01/28/25 11:27 O2 Flow Rate 2 01/27/25 12:05 BMI result Body Mass Index 30.2 Const: Other: Constitutional : interactive, not in distress Cardiovascular : no JVP, no lower extremity edema Respiratory : bilateral chest movement, not in resp distress Gastrointestinal: soft, lax, Non tender Skin : Warm, Dry Neurological : Alert & oriented , No focal deficit Objective Data Active Medications Acetaminophen (Acetaminophen 325 Mg Tablet) 650 mg PO Q6H PRN PRN Reason: Pain, Mild 1-3,fever,headache Calcium Carbonate (Calcium Carbonate 750 Mg Tab.Chew) 750 mg PO Q4H PRN PRN Reason: Heartburn Sodium Chloride (Ns) 1,000 mls @ 100 mls/hr IVCONT .Q10H [facility] Last Admin: 01/28/25 06:09 Dose: Not Given Documented By: TIFFANIE Non-Admin Reason: pre op orders Magnesium Hydroxide (Milk Of Magnesia 30 Ml Oral.Susp) 30 ml PO DAILY PRN PRN Reason: Constipation Melatonin (Melatonin 3 Mg Tablet) 6 mg PO BEDTIME PRN PRN Reason: Insomnia Metoclopramide HCl (Metoclopramide Hcl 10 Mg/2 Ml Vial) 5 mg IVPUSH TID [facility] Last Admin: 01/28/25 11:40 Dose: Not Given Documented By: ADONAY Non-Admin Reason: Patient Refused Naloxone HCl (Naloxone Hcl 0.4 Mg/Ml Vial) 0.04 mg IVPUSH Q5M PRN PRN Reason: Excessive sedation or RR < 8 Ondansetron HCl (Ondansetron Hcl 4 Mg/2 Ml Vial) 4 mg IVPUSH Q8H PRN PRN Reason: Nausea and Vomiting Pantoprazole Sodium (Pantoprazole Sodium 40 Mg/10 Ml Vial) 40 mg IVPUSH BID@0630,1630 [facility] Simethicone (Simethicone 80 Mg Tab.Chew) 80 mg PO QIDWMHS [facility] Last Admin: 01/28/25 11:37 Dose: 80 mg Documented By: ADONAY Sodium Chloride (0.9 % Sodium Chloride Flush 3 Ml Syringe) 3 ml IVFLUSH QSHIFT [facility] Last Admin: 01/28/25 10:05 Dose: 3 ml Documented By: ADONAY Sucralfate (Sucralfate 1 Gm Tablet) 1 gm PO BIDAC [facility] Last Admin: 01/28/25 09:59 Dose: 1 gm Documented By: ADONAY Labs 01/28/25 10:56 01/27/25 06:28 Labs: Laboratory Results - last 24 hr 01/27/25 01/28/25 16:48 10:56 MCV 86.6 88.2 MCH 31.0 31.0 MCHC 35.8 H 35.1 H RDW 13.5 13.4 Plt Count 36 L 29 L MPV 11.5 11.6 Absolute Nucleated RBC 0.000 0.000 Nucleated RBC % (auto) 0.0 0.0 Assessment and Plan (1) Pulmonary embolism: Status: Acute (2) Severe anemia: Status: Acute (3) Melena: Status: Acute (4) Acute upper GI bleed: Status: Acute (5) GIB (gastrointestinal bleeding): Status: Acute (6) Hematemesis of fresh blood: Status: Acute Plan Patient is a 64-year-old female with past medical history breast cancer diagnosed 2015 with Mets to the lung s/p lumpectomy, radiation and chemo current negative mammogram, 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 Patient dealing with metastatic gallbladder carcinoma and history of breast cancer with active metastases suspected to the lung. Patient recently diagnosed with PE early December 2024 on Eliquis. Acute on chronic blood loss anemia 2/2 acute GI bleed received Kcentra Eliquis held 2 units of PRBCs transfused, Hb dropped to 8 with ongoing melena monitor H&H GI did EGD erythematous areas in the antrum that were oozing blood consistent with GAVE . these were ablated with APC and then hemospray was applied, duodenal sweep there was a punctate area of continuous oozing, clip applied and then sprayed with nexpowder restarted diet Protonix 40 IV b.i.d. Hematemesis with worsening anemia on 01/28 Likely MW tear from vomiting post Op Octreotide infusion IV Iron supplement Transfuse 2 more units PRBCs and 2 units PLT follow H&H Recent PE DC Eliquis Vascular placed IVC filter 01/27. Gastritis/duodenitis/sigmoiditis Protonix ordered Avoid NSAIDS hold off on starting steroids and ABX at this time GI following acute on chronic Thrombocytopenia platelets 29 after transfusion of 2 units, goal >30 Heme\Onc following, DC Everolimus Transfuse 2 more units Metastatic gallbladder carcinoma with liver metastases follows with [facility] and [facility] consulted noting CT scan shows innumerable hepatic lesions currently present. patient does not appear ready to discuss hospice and palliative care although consultation may be indicated for this admission as patient states she needs more help while living alone case management consulted Transaminitis secondary to metastatic gallbladder carcinoma likely avoid hepatotoxic medications History of breast cancer with current suspected lung metastases per oncology Peripheral neuropathy secondary to chemotherapy continue gabapentin Osteoarthritis supportive care pain management with low-dose Tylenol DVT prophylaxis: Held due to GI bleed PPI prophylaxis: Protonix IV 40 b.i.d. Full Code status, this was reviewed with patient Quality Stroke Does the patient have a stroke diagnosis?: No Reason for No Anti-thrombotic by Day Two: Contraindicated VTE Prior VTE?: No VTE Risk Level:: Medical - moderate - high VTE Device Contraindication: N/A - Device Ordered VTE Drug Contraindication: Treatment Not Indicated
--- NOTE | 2025-01-28 12:40 | MHC.CM.PN ---
EMR REVIEWED, PT DVT AND S/P IVC FILTER, O.T. RECOMMENDING AR, REF PLACED AND PT PENDING, CM WILL CHECK IN W/PT FOR PREFERRED AR, PER HOSPITALIST ANTIC PT WILL BE CLEARED TOMORROW HOWEVER WILL NEED WELLSENSE AUTH, CM WILL CONT TO FOLLOW PT.
[2025-01-28] MEDS: Iron Sucrose Complex 200 MG in 0.9 % Sodium Chloride 100 ML 440 MG IV (13:01)
[2025-01-28] MEDS: Octreotide Acetate 500 MCG in 0.9 % Sodium Chloride 500 ML 50.1 MCG IVCONT ×2 (13:27→23:29)
--- NOTE | 2025-01-28 14:49 | P.PNHO-ONC_ITS ---
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 Patient asked her son to bring her to the emergency department due to her level of shortness of breath. Patient reported black stools to her oncologist on her visit 01/20/2025. Patient was transfused 2 units of blood through her oncologist but refused to be hospitalized. Patient had been started on Eliquis for previous PE back in early December 2024. Patient has history of blood clots and has been noncompliant with anticoagulation in the past. Patient does not present with hypoxia or chest pain. Patient is not tachypneic or tachycardic. Patient denies fever, chills, nausea or vomiting. Patient denies any recent falls. Since admission to the hospital, Eliquis and everolimus have been stopped. She urine received 2 units PRBC and unit platelet transfusion. She has undergone IVC filter placement as well as upper endoscopy. She has had few episodes of emesis today after undergoing endoscopy. She denies nausea at this time. No abdominal pain. Review of Systems - Constitutional Reports as per HPI - Cardiovascular Reports no additional cardiovascular complaints - Respiratory Reports no additional respiratory complaints - Gastrointestinal Reports no additional gastrointestinal complaints - Neurologic Reports hearing normal, Denies abnormal gait [facility] Medical History: Medical History (Last Reviewed 01/28/25 @ 10:15 by PHIL De La Torre-Tabby) Back pain Breast cancer, left Onset Date: ~10/2016 Breast lump on right side at 5 o'clock position Chest pain Chronic cough History of colon polyps Metastasis from gallbladder cancer Metastatic cancer to liver Metastatic disease Neuropathy Pneumonitis Pulmonary embolism Pulmonary embolism Pulmonary nodules Spondylosis Vaginal yeast infection Functional capacity: uses cane/walker Family History: Family History (Last Reviewed 01/25/25 @ 22:48 by MALORIE Romero) Mother No problems noted. Father No problems noted. Other No family history of cancer Surgical History: Surgical History (Last Reviewed 01/28/25 @ 10:15 by Kayla Lynn OTR-L) History of esophagogastroduodenoscopy (EGD) History of lumpectomy of right breast Onset Date: 06/26/22 Hx of cholecystectomy Hx of colonoscopy Onset Date: ~10/2018 Hx of vein stripping S/P breast lumpectomy Social History: Social History (Last Reviewed 01/25/25 @ 22:48 by MALORIE Romero) Living Situation History: Household Members: None Housing: Apartment Are you a primary child care center assistant director to a significant other at home: No Do you presently have visiting nurse or other home services: No Alcohol History: Unable to assess alcohol history related to: Unknown Tobacco History: Patient Tobacco Use Status: Never used Tobacco e-Cigarette/Vaping Use: Never Used Second Hand Smoke Exposure: No Occupation Assessmet: service: No Current occupational status: disabled Current occupation: rt handed - Travel History Ebola Risk: Travel/Contact With Anyone From Affected Area/s: No Has Patient Experienced Ebola Symptoms: No Home Medications and Allergies Current Medications: Current Medications Acetaminophen (Acetaminophen 325 Mg Tablet) 650 mg PO Q6H PRN PRN Reason: Pain, Mild 1-3,fever,headache Calcium Carbonate (Calcium Carbonate 750 Mg Tab.Chew) 750 mg PO Q4H PRN PRN Reason: Heartburn Sodium Chloride (Ns) 1,000 mls @ 100 mls/hr IVCONT .Q10H [facility] Last Admin: 01/28/25 06:09 Dose: Not Given Octreotide Acetate 500 mcg/ (Sodium Chloride) 501 mls @ 50.1 mls/hr IVCONT .Q10H [facility] Last Admin: 01/28/25 13:27 Dose: 50 mcg/hr, 50.1 mls/hr Magnesium Hydroxide (Milk Of Magnesia 30 Ml Oral.Susp) 30 ml PO DAILY PRN PRN Reason: Constipation Melatonin (Melatonin 3 Mg Tablet) 6 mg PO BEDTIME PRN PRN Reason: Insomnia Metoclopramide HCl (Metoclopramide Hcl 10 Mg/2 Ml Vial) 5 mg IVPUSH TID [facility] Last Admin: 01/28/25 11:40 Dose: Not Given Naloxone HCl (Naloxone Hcl 0.4 Mg/Ml Vial) 0.04 mg IVPUSH Q5M PRN PRN Reason: Excessive sedation or RR < 8 Ondansetron HCl (Ondansetron Hcl 4 Mg/2 Ml Vial) 4 mg IVPUSH Q8H PRN PRN Reason: Nausea and Vomiting Pantoprazole Sodium (Pantoprazole Sodium 40 Mg/10 Ml Vial) 40 mg IVPUSH BID@0630,1630 [facility] Simethicone (Simethicone 80 Mg Tab.Chew) 80 mg PO QIDWMHS [facility] Last Admin: 01/28/25 11:37 Dose: 80 mg Sodium Chloride (0.9 % Sodium Chloride Flush 3 Ml Syringe) 3 ml IVFLUSH QSHIFT [facility] Last Admin: 01/28/25 10:05 Dose: 3 ml Sucralfate (Sucralfate 1 Gm Tablet) 1 gm PO BIDAC [facility] Last Admin: 01/28/25 09:59 Dose: 1 gm Home Medications ?Medication ?Instructions ?Recorded ?Confirmed ?Type multivitamin-iron sulfate 15 1 tab PO DAILY 12/30/24 01/25/25 History mg-folic acid 400 mcg tablet (Tab-A-Marissa Multivitamin w-iron) omeprazole 20 mg capsule,delayed 20 mg PO BID@0630,1630 12/30/24 01/25/25 History release clotrimazole-betamethasone 1 1 appl topical DAILY 01/25/25 01/25/25 History %-0.05 % topical cream Allergies Allergy/AdvReac Type Severity Reaction Status Date / Time Penicillins [PENICILLINS] Allergy Severe ANAPHYLAXIS, Verified 01/25/25 16:01 swelling streptomycin [STREPTOMYCIN] Allergy Severe ANAPHYLAXIS Verified 01/25/25 16:01 Exam Vital signs: Vital Signs Temp 98.1 F 01/28/25 14:00 Pulse 94 01/28/25 14:00 Resp 20 01/28/25 14:00 BP 138/66 01/28/25 14:00 Pulse Ox 99 01/28/25 12:32 O2 Del Method Room Air 01/28/25 11:27 O2 Flow Rate 2 01/27/25 12:05 Intake & Output 01/27/25 01/28/25 01/28/25 18:59 06:59 18:59 Intake Total 600 / 1350 750 / 1350 310 / 310 Output Total 0 / 0 Balance 600 / 1350 750 / 1350 310 / 310 Urine Output (Average ml/kg/hr) 0.00 0.00 Intake: Intake, Oral Amount 750 / 750 200 / 200 IV Intake, Intraoperative 600 / 600 Amount Intake (Blood Product) Amount 0 / 0 Red Blood Cells (E0336) Unit 0 / 0 [id number] Intake, IV Amount 110 / 110 Iron Sucrose Complex 200 mg In 110 / 110 0.9 % Sodium Chloride 100 ml @ 440 mls/hr IV ONCE ONE Rx#: [id number] Output: Output, Urine Amount 0 / 0 Output, Stool Amount 0 / 0 Other: Meal Refused No NPO Yes No Breakfast % Eaten 25% Lunch % Eaten 25% Eating (Feeding) Ability Independent Number of Incontinent Voids 0 Number of Unmeasured Voids 1 1 Number of Bowel Movements 0 2 Urine Bathroom Bathroom Urine Color Yellow Last Bowel Movement 01/27/25 01/28/25 Stool Bathroom Stool Color Black ([place]) Weight 74.9 kg [place] Weight in Grams 74996 Weight 74.9 kg BMI result Body Mass Index 30.2 - Constitutional Present: mild distress - Routine HEENT Exam Head: Present: normal inspection - Routine Respiratory Exam Absent: accessory muscle use, stridor, wheezes - Routine Cardiovascular Exam Cardiovascular: Present: S1, S2 - Routine Abdominal Exam Absent: distended, firm - Routine Extremities Exam Present: pulses intact - Routine Skin Exam Present: intact - Routine Neurological Exam Present: alert, oriented X3 Data - Labs CBC & Chem 7: 01/28/25 10:56 01/27/25 06:28 Labs: Laboratory Last Values WBC 8.1 X10*3/uL (4.8-10.8) 01/28/25 10:56 RBC 2.29 X10*6/uL (4.20-5.50) L 01/28/25 10:56 Hgb 7.1 g/dl (12.0-16.0) L 01/28/25 10:56 Hct 20.2 % (37.0-47.0) L* 01/28/25 10:56 MCV 88.2 fL (80.0-98.0) 01/28/25 10:56 MCH 31.0 pg (27.0-33.0) 01/28/25 10:56 MCHC 35.1 g/dl (31.0-35.0) H 01/28/25 10:56 RDW 13.4 % (11.0-16.0) 01/28/25 10:56 Plt Count 29 X10*3/uL (160-400) L 01/28/25 10:56 MPV 11.6 fL (9.4-12.3) 01/28/25 10:56 Immature Gran % (Auto) 0.7 % (0.0-0.4) H 01/27/25 06:28 Neut % (Auto) 64.6 % (45-73) 01/27/25 06:28 Lymph % (Auto) 20.0 % (20-40) 01/27/25 06:28 Benson % (Auto) 12.6 % (2-11) H 01/27/25 06:28 Eos % (Auto) 1.6 % (0-4) 01/27/25 06:28 Baso % (Auto) 0.5 % (0-2) 01/27/25 06:28 Lymph # (Auto) 1.5 X10*3/uL (1.2-4.9) 01/27/25 06:28 Benson # (Auto) 0.9 X10*3/uL (0.1-1.2) 01/27/25 06:28 Eos # (Auto) 0.1 X10*3/uL (0.0-0.4) 01/27/25 06:28 Baso # (Auto) 0.0 X10*3/uL (0.0-0.2) 01/27/25 06:28 Abs Immat Gran (auto) 0.05 X10*3/uL (0.00-0.03) H 01/27/25 06:28 Absolute Neuts (auto) 4.8 x10*3/uL (2.0-8.3) 01/27/25 06:28 Absolute Nucleated RBC 0.000 X10*3/uL (0.0-0.012) 01/28/25 10:56 Nucleated RBC % (auto) 0.0 /100WBC (0.0-0.2) 01/28/25 10:56 Smear Tech's Comments VERIFIED 01/25/25 17:16 PT 12.5 SEC (10.9-12.4) H 01/27/25 06:28 INR 1.1 (0.9-1.1) 01/27/25 06:28 APTT 26.4 SEC (26.0-36.8) D 01/26/25 09:42 Sodium 137 mmol/L (135-145) 01/27/25 06:28 Potassium 3.6 mmol/L (3.3-5.1) 01/27/25 06:28 Chloride 104 mmol/L (96-108) 01/27/25 06:28 Carbon Dioxide 27 mmol/L (22-29) 01/27/25 06:28 Anion Gap 10 (12-20) L 01/27/25 06:28 BUN 17 mg/dL (9-16) H 01/27/25 06:28 Creatinine 0.59 mg/dL (0.5-1.4) 01/27/25 06:28 Estim Creat Clear Calc 92.8 01/27/25 06:28 Estimated GFR > 60 01/27/25 06:28 Random Glucose 108 mg/dL (60-115) 01/27/25 06:28 Calcium 7.7 mg/dL (8.4-10.2) L 01/27/25 06:28 Magnesium 2.1 mg/dL (1.6-2.6) 01/25/25 17:16 Iron 66 mcg/dL (30-160) 01/25/25 17:16 TIBC 200 mcg/dL (228-428) L 01/25/25 17:16 % Saturation 33 % (15-50) 01/25/25 17:16 Unsat Iron Binding 134 ug/dL 01/25/25 17:16 Total Bilirubin 1.0 mg/dL (0.0-1.0) 01/26/25 08:26 Direct Bilirubin 0.1 mg/dL (0.0-0.5) 01/25/25 17:16 AST 128 U/L (5-31) H 01/26/25 08:26 ALT 73 U/L (0-31) H 01/26/25 08:26 Alkaline Phosphatase 149 U/L (39-117) H 01/26/25 08:26 Troponin I High Sens 11.6 ng/L (<3.5-17.0) D 01/25/25 17:16 C-Reactive Protein 6.97 mg/dL (< or = 0.50) H 01/25/25 17:16 B-Natriuretic Peptide 95 pg/mL (<100) 01/25/25 17:16 Total Protein 5.4 g/dL (6.5-8.0) L 01/26/25 08:26 Albumin 2.7 g/dL (3.5-5.0) L 01/26/25 08:26 Lipase 34 U/L (8-78) 01/25/25 17:16 Carcinoembryonic Ag 6571.80 ng/mL 01/27/25 06:28 Vitamin B12 > 2000 pg/mL (200-900) H 01/26/25 08:26 Urine Color Yellow 01/26/25 03:48 Urine Appearance Clear 01/26/25 03:48 Urine pH 6.0 (5.0-9.0) 01/26/25 03:48 Ur Specific Josephine >= 1.030 (1.005-1.025) H 01/26/25 03:48 Urine Protein Negative mg/dL (Neg-Trace) 01/26/25 03:48 Urine Glucose (UA) Negative mg/dL (Negative) 01/26/25 03:48 Urine Ketones Negative mg/dL (Negative) 01/26/25 03:48 Urine Blood Negative (Negative) 01/26/25 03:48 Urine Nitrite Negative (Negative) 01/26/25 03:48 Ur Leukocyte Esterase Trace (Negative) H 01/26/25 03:48 Urine RBC 0-2 /HPF (0-2) 01/26/25 03:48 Urine WBC 0-5 /HPF (0-5) 01/26/25 03:48 Ur Squamous Epith Cells 0-2 /HPF (0-2) 01/26/25 03:48 Urine Bacteria None Seen (None Seen) 01/26/25 03:48 Hyaline Casts 0-2 /LPF (0-2) 01/26/25 03:48 Stool Occult Blood POSITIVE (NEGATIVE) 01/25/25 23:19 Influenza Type A (PCR) NEGATIVE (Negative) 01/25/25 17:11 Influenza Type B (PCR) NEGATIVE (Negative) 01/25/25 17:11 RSV RNA Qual (PCR) NEGATIVE (Negative) 01/25/25 17:11 SARS-CoV-2 RNA (RT-PCR) NEGATIVE (Negative) 01/25/25 17:11 Blood Type B Positive 01/25/25 17:15 Antibody Screen NEGATIVE 01/25/25 17:15 Crossmatch See Detail 01/25/25 17:15 - Imaging Radiologist's impression: ITS Impressions Chest X-Ray 01/28/25 12:50 IMPRESSION: No acute cardiopulmonary abnormality. Electronically signed by: Andi Tan MD 01/28/2025 01:09 PM EDT RP Assessment and Plan Patient Active problem list reviewed?: Yes (1) Metastatic cholangiocarcinoma Status: Chronic Assessment and plan: 1. This is a 64-year-old woman with remote history of left breast cancer status post chemo therapy and radiation following surgery who has since been diagnosed with metastatic gallbladder cancer/cholangiocarcinoma. She underwent R0 resection for stage IIIB (pT2B N1 M0) grade 2 gallbladder adenocarcinoma. She had involvement of 2 of 4 lymph nodes and lymphovascular invasion. She received adjuvant chemotherapy with gemcitabine plus capecitabine from April until June 2024. She received concurrent chemoradiation therapy with oral capecitabine from 08/2024 until September 2024. She had biopsy of liver mass performed 11/09/2024 at [facility] which revealed moderately differentiated adenocarcinoma, tumor cells positive for CK7, CK20 and CDX2 and negative for TTF 1 and MITUL 3 supporting morphological interpretation of clinically known gallbladder adenocarcinoma. CT abdomen/pelvis with contrast performed in November 2024 at [facility] revealed multiple new and enlarging hypoattenuating liver metastasis, largest in right lobe measuring 6.7 x 5.9 cm and several additional lesions. CT angiogram performed on 12/30/2024 was positive for pulmonary embolism in segmental left lower lobe pulmonary arteries, extensive and innumerable metastatic lesions throughout liver as well as numerous bilateral pulmonary nodules suspicious for metastasis. She has been on Eliquis for thromboembolism. Unfortunately she now presents with severe anemia as well as thrombocytopenia. She may have occult GI bleeding because of anticoagulation. She is scheduled to undergo upper endoscopy. Eliquis was on hold. She is also having IVC filter placed by Dr. Mendez. Her thrombocytopenia worsened significantly since she started everolimus. I have asked her to stop taking this medication. 2. DVT/pulmonary embolism. Because of significant thrombocytopenia and GI bleeding, Eliquis although on hold. She underwent IVC filter placement. 3. GI bleeding. She underwent endoscopy which revealed GAVE, ablated with APC and hemo spray. Agree with transfusing blood and platelets. Goal is to keep platelet count above 40 K. defer anticoagulation until platelet count at least above 70 K. - Time Spent With Patient Time Spent with Patient (in minutes): 20
--- NOTE | 2025-01-28 15:01 | P.PNGI_ITS ---
Subjective Subjective Date of Service: 01/28/25 Critical Care Time (minutes): 15 Comment: Pt seen due to complaints of vomiting followed by hematemesis overnight and melena overnight PLT <30k Hb dropped to 7.1 Pt complains of vomiting after drinking soup. 01/27/25 EGD showed: Stomach: erythematous areas in the antrum that were oozing blood consistent with GAVE . these were ablated with APC and then hemospray was applied. Grade 2 flap valve on retroflexed examination of the cardia. Duodenum: At duodenal sweep there was a punctate area of continuous oozing, clip applied and then sprayed with nexpowder UGI bleeding likely due to MW tear versus oozing from GAVE in the stomach worsened by thrombocytopenia. RECOMMENDATIONS: 1. Agree with IV octreotide, IV PPI and transfusion of 2 U PRBC and 1 U platelets 2. Repeat CBC post transfusion. 3. If pt has persistent bleeding after correction of thrombocytopenia, she will be scheduled for repeat EGD. Physical Exam 2 Vital Signs: Vital Signs: Last Vital Signs Temp 98.1 F 01/28/25 14:00 Pulse 94 01/28/25 14:00 Resp 20 01/28/25 14:00 BP 138/66 01/28/25 14:00 Pulse Ox 99 01/28/25 12:32 O2 Del Method Room Air 01/28/25 11:27 O2 Flow Rate 2 01/27/25 12:05 BMI result Body Mass Index 30.2 Objective Data Labs 01/28/25 10:56 01/27/25 06:28 Labs: Laboratory Results - last 24 hr 01/25/25 01/27/25 01/28/25 17:15 16:48 10:56 WBC 10.2 8.1 RBC 2.68 L 2.29 L Hgb 8.3 L 7.1 L Hct 23.2 L 20.2 L* MCV 86.6 88.2 MCH 31.0 31.0 MCHC 35.8 H 35.1 H RDW 13.5 13.4 Plt Count 36 L 29 L MPV 11.5 11.6 Absolute Nucleated RBC 0.000 0.000 Nucleated RBC % (auto) 0.0 0.0 Blood Type B Positive Antibody Screen NEGATIVE Crossmatch See Detail Procedures Date of Service Date of Service: 01/28/25 Progress Note: A&P Time Spent With Patient Time: Total time managing care of this patient today ____ minutes. Quality Stroke Does the patient have a stroke diagnosis?: No Reason for No Anti-thrombotic by Day Two: Contraindicated VTE Prior VTE?: No VTE Risk Level:: Medical - moderate - high VTE Device Contraindication: N/A - Device Ordered VTE Drug Contraindication: Treatment Not Indicated
[2025-01-29] VITALS (11 sets, daily range): BP systolic 101–153; BP diastolic 59–88; PULSE 63–98; RESP 16–19; TEMP 36.4–37.1; O2SAT 94–100; BMI 29.7
[2025-01-29] MEDS: Simethicone 80 MG TAB.CHEW 160 MG PO (03:27)
[2025-01-29] MEDS: Pantoprazole Sodium 40 MG/10 ML VIAL IVPUSH ×2 (06:16→16:20)
[2025-01-29 07:32] LABS: MANUAL DIFF FLAG NO
[2025-01-29 07:36] LABS: Basophils Percent Auto 0.3 % (0-2); Eosinophils Absolute Auto 0.1 X10*3/uL (0.0-0.4); Eosinophils Percent Auto 0.9 % (0-4); Hematocrit 26.2 % (37.0-47.0); Hemoglobin 9.4 g/dl (12.0-16.0); Imm Gran Abs Auto 0.06 X10*3/uL (0.00-0.03); Imm Gran Pct Auto 0.6 % (0.0-0.4); Lymphocytes Absolute Auto 0.9 X10*3/uL (1.2-4.9); Lymphocytes Percent Auto 9.5 % (20-40); Mean Corpuscular HGB Conc 35.9 g/dl (31.0-35.0); Mean Corpuscular Hemoglobin 30.8 pg (27.0-33.0); Mean Corpuscular Volume 85.9 fL (80.0-98.0); Mean Platelet Volume 9.7 fL (9.4-12.3); Monocytes Absolute Auto 0.9 X10*3/uL (0.1-1.2); Monocytes Percent Auto 9.5 % (2-11); Neutrophils Absolute Auto 7.9 x10*3/uL (2.0-8.3); Neutrophils Percent Auto 79.2 % (45-73); Red Blood Count 3.05 X10*6/uL (4.20-5.50); Red Cell Distribution Width 14.1 % (11.0-16.0); White Blood Count 9.9 X10*3/uL (4.8-10.8)
[2025-01-29 07:39] LABS: Platelet Count 87 X10*3/uL (160-400)
[2025-01-29 07:49] LABS: INTERNATIONAL NORM RATIO 1.1 (0.9-1.1); Prothrombin Time 12.3 SEC (10.9-12.4)
[2025-01-29 08:03] LABS: Alanine Aminotransferase 65 U/L (0-31); Albumin Level 2.6 g/dL (3.5-5.0); Alkaline Phosphatase 143 U/L (39-117); Anion Gap 12 (12-20); Aspartate Amino Transferase 104 U/L (5-31); Bilirubin Direct 0.3 mg/dL (0.0-0.5); Blood Urea Nitrogen 15 mg/dL (9-16); Calcium 7.4 mg/dL (8.4-10.2); Carbon Dioxide 22 mmol/L (22-29); Chloride 105 mmol/L (96-108); Estimated Glomerular Filt Rate > 60; Glucose Random 127 mg/dL (60-115); Potassium 3.3 mmol/L (3.3-5.1); Sodium 136 mmol/L (135-145); Total Protein 5.4 g/dL (6.5-8.0)
[2025-01-29] MEDS: Sucralfate 1 GM TABLET PO ×2 (08:25→16:19)
[2025-01-29] MEDS: Simethicone 80 MG TAB.CHEW PO ×4 (08:28→20:25)
[2025-01-29] MEDS: 0.9 % Sodium Chloride Flush 3 ML SYRINGE IVFLUSH ×3 (08:30→20:27)
[2025-01-29] MEDS: Iron Sucrose Complex 200 MG in 0.9 % Sodium Chloride 100 ML 440 MG IV (11:07)
--- NOTE | 2025-01-29 13:59 | P.PNIM_ITS ---
Subjective Subjective Date of Service: 01/29/25 Interval History: Seen and evaluated this morning feels better Hb improved to almost 9 PLT improved to 80s still nauseated reporting melena overnight Review of Systems Review of Systems: Yes all other systems are reviewed and are negative Physical Exam 2 Vital Signs: Vital Signs: Last Vital Signs Temp 98.4 F 01/29/25 12:00 Pulse 80 01/29/25 12:00 Resp 19 01/29/25 12:00 BP 101/60 01/29/25 12:00 Pulse Ox 96 01/29/25 12:00 O2 Del Method Room Air 01/29/25 12:00 O2 Flow Rate 2 01/27/25 12:05 BMI result Body Mass Index 29.7 Const: Other: Constitutional : interactive, not in distress Cardiovascular : no JVP, no lower extremity edema Respiratory : bilateral chest movement, not in resp distress Gastrointestinal: soft, lax, Non tender Skin : Warm, Dry Neurological : Alert & oriented , No focal deficit Objective Data Active Medications Acetaminophen (Acetaminophen 325 Mg Tablet) 650 mg PO Q6H PRN PRN Reason: Pain, Mild 1-3,fever,headache Calcium Carbonate (Calcium Carbonate 750 Mg Tab.Chew) 750 mg PO Q4H PRN PRN Reason: Heartburn Magnesium Hydroxide (Milk Of Magnesia 30 Ml Oral.Susp) 30 ml PO DAILY PRN PRN Reason: Constipation Melatonin (Melatonin 3 Mg Tablet) 6 mg PO BEDTIME PRN PRN Reason: Insomnia Metoclopramide HCl (Metoclopramide Hcl 10 Mg/2 Ml Vial) 5 mg IVPUSH TID [facility] Last Admin: 01/29/25 10:59 Dose: Not Given Documented By: FERNANDO Non-Admin Reason: Patient Refused Naloxone HCl (Naloxone Hcl 0.4 Mg/Ml Vial) 0.04 mg IVPUSH Q5M PRN PRN Reason: Excessive sedation or RR < 8 Ondansetron HCl (Ondansetron Hcl 4 Mg/2 Ml Vial) 4 mg IVPUSH Q8H PRN PRN Reason: Nausea and Vomiting Pantoprazole Sodium (Pantoprazole Sodium 40 Mg/10 Ml Vial) 40 mg IVPUSH BID@0630,1630 [facility] Last Admin: 01/29/25 06:16 Dose: 40 mg Documented By: CAS Simethicone (Simethicone 80 Mg Tab.Chew) 80 mg PO QIDWMHS [facility] Last Admin: 01/29/25 11:07 Dose: 80 mg Documented By: FERNANDO Sodium Chloride (0.9 % Sodium Chloride Flush 3 Ml Syringe) 3 ml IVFLUSH QSHIFT [facility] Last Admin: 01/29/25 08:30 Dose: 3 ml Documented By: FERNANDO Sucralfate (Sucralfate 1 Gm Tablet) 1 gm PO BIDAC [facility] Last Admin: 01/29/25 08:25 Dose: 1 gm Documented By: FERNANDO Labs 01/29/25 06:53 01/29/25 06:53 Labs: Laboratory Results - last 24 hr 01/25/25 01/28/25 01/29/25 17:15 22:16 06:53 MCV 85.9 MCH 30.8 MCHC 35.9 H RDW 14.1 Plt Count 87 L D MPV 9.7 Immature Gran % (Auto) 0.6 H Neut % (Auto) 79.2 H Lymph % (Auto) 9.5 L [place] % (Auto) 9.5 Eos % (Auto) 0.9 Baso % (Auto) 0.3 Lymph # (Auto) 0.9 L [place] # (Auto) 0.9 Eos # (Auto) 0.1 Baso # (Auto) 0.0 Abs Immat Gran (auto) 0.06 H Absolute Neuts (auto) 7.9 Absolute Nucleated RBC 0.000 Nucleated RBC % (auto) 0.0 PT 12.3 INR 1.1 Anion Gap 12 Estim Creat Clear Calc 102.0 Estimated GFR > 60 Random Glucose 127 H Calcium 7.4 L Total Bilirubin 1.0 Direct Bilirubin 0.3 AST 104 H ALT 65 H Alkaline Phosphatase 143 H Total Protein 5.4 L Albumin 2.6 L Blood Type B Positive B Positive Antibody Screen NEGATIVE NEGATIVE Crossmatch See Detail See Detail Assessment and Plan (1) Hematemesis of fresh blood: Status: Acute (2) Pulmonary embolism: Status: Acute (3) Severe anemia: Status: Acute (4) Melena: Status: Acute (5) Acute upper GI bleed: Status: Acute Plan Patient is a 64-year-old female with past medical history breast cancer diagnosed 2015 with Mets to the lung s/p lumpectomy, radiation and chemo current negative mammogram, 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 Patient dealing with metastatic gallbladder carcinoma and history of breast cancer with active metastases suspected to the lung. Patient recently diagnosed with PE early December 2024 on Eliquis. Acute on chronic blood loss anemia 2/2 acute GI bleed received Kcentra , Eliquis held 4 units of PRBCs transfused in total, Hb stable around 9 monitor H&H GI did EGD erythematous areas in the antrum that were oozing blood consistent with GAVE . these were ablated with APC and then hemospray was applied, duodenal sweep there was a punctate area of continuous oozing, clip applied and then sprayed with nexpowder restarted diet , monitor tolerance Protonix 40 IV b.i.d. for now Hematemesis with worsening anemia on 01/28 no more incidents Likely MW tear from vomiting post Op Octreotide infusion Dcd IV Iron supplement follow H&H Recent PE DC Eliquis Vascular placed IVC filter 01/27. Gastritis/duodenitis/sigmoiditis Protonix ordered Avoid NSAIDS hold off on starting steroids and ABX at this time GI following acute on chronic Thrombocytopenia platelets 80s after transfusion of 4 units, goal >30 Heme\Onc following, DC Everolimus Metastatic gallbladder carcinoma with liver metastases follows with [facility] Oncology and [facility] Oncology consulted noting CT scan shows innumerable hepatic lesions currently present. patient does not appear ready to discuss hospice and palliative care although consultation may be indicated for this admission as patient states she needs more help while living alone case management consulted Transaminitis secondary to metastatic gallbladder carcinoma likely avoid hepatotoxic medications History of breast cancer with current suspected lung metastases per oncology Peripheral neuropathy secondary to chemotherapy continue gabapentin Osteoarthritis supportive care pain management with low-dose Tylenol DVT prophylaxis: Held due to GI bleed PPI prophylaxis: Protonix IV 40 b.i.d. Full Code status, this was reviewed with patient Quality Stroke Does the patient have a stroke diagnosis?: No Reason for No Anti-thrombotic by Day Two: Contraindicated VTE Prior VTE?: No VTE Risk Level:: Medical - moderate - high VTE Device Contraindication: N/A - Device Ordered VTE Drug Contraindication: Treatment Not Indicated
--- NOTE | 2025-01-29 15:45 | MHC.CM.PN ---
CM MET WITH PT AND FAMILY AT BEDSIDE THEY ARE AWARE HOME WITH SERVICES WAS THE RECOMMENDATION, HOWEVER PT STATES SHE FEELS SHE NEEDS STR SHE LIVES ALONE [facility] IS THE ONLY SNF OFFERING AND WILL REQUEST AUTH
[2025-01-30 04:00] VITALS: BP 142/60; PULSE 83; RESP 16; TEMP 37.1; O2SAT 97
[2025-01-30 06:00] VITALS: BMI 30.6
[2025-01-30] MEDS: Pantoprazole Sodium 40 MG/10 ML VIAL IVPUSH ×2 (07:02→16:32)
[2025-01-30 07:44] VITALS: BP 143/65; PULSE 88; RESP 18; TEMP 36.8; O2SAT 98
[2025-01-30 08:30] LABS: Basophils Percent Auto 0.5 % (0-2); Eosinophils Absolute Auto 0.1 X10*3/uL (0.0-0.4); Hematocrit 25.1 % (37.0-47.0); Hemoglobin 8.7 g/dl (12.0-16.0); Imm Gran Abs Auto 0.07 X10*3/uL (0.00-0.03); Imm Gran Pct Auto 0.8 % (0.0-0.4); Lymphocytes Absolute Auto 0.8 X10*3/uL (1.2-4.9); Lymphocytes Percent Auto 9.8 % (20-40); MANUAL DIFF FLAG SCAN; Mean Corpuscular HGB Conc 34.7 g/dl (31.0-35.0); Mean Corpuscular Volume 89.3 fL (80.0-98.0); Mean Platelet Volume 10.4 fL (9.4-12.3); Monocytes Absolute Auto 0.9 X10*3/uL (0.1-1.2); Monocytes Percent Auto 10.7 % (2-11); NRBC Pct Auto 0.2 /100WBC (0.0-0.2); Neutrophils Absolute Auto 6.5 x10*3/uL (2.0-8.3); Neutrophils Percent Auto 77.2 % (45-73); PLT CLUMP 1; Red Blood Count 2.81 X10*6/uL (4.20-5.50); Red Cell Distribution Width 13.8 % (11.0-16.0); SCAN SMEAR FLAG 1
[2025-01-30 08:32] LABS: Platelet Count 51 X10*3/uL (160-400); White Blood Count 8.4 X10*3/uL (4.8-10.8)
[2025-01-30 08:45] LABS: SLIDE REVIEW VERIFIED
[2025-01-30] MEDS: Sucralfate 1 GM TABLET PO ×2 (09:08→16:32)
[2025-01-30] MEDS: Simethicone 80 MG TAB.CHEW PO ×4 (09:08→21:32)
[2025-01-30] MEDS: 0.9 % Sodium Chloride Flush 3 ML SYRINGE IVFLUSH ×3 (09:08→21:33)
[2025-01-30 11:17] VITALS: BP 153/60; PULSE 94; RESP 18; TEMP 36.8; O2SAT 98
--- NOTE | 2025-01-30 12:45 | HO.PM.IMPN ---
Subjective Subjective Date of Service: 01/30/25 Interval History: Seen and evaluated this morning feels dyspneic and weak, does not feel ready to go home Hb at 8.7 PLT at 51 had small black bowel movement overnight Review of Systems Review of Systems: Yes all other systems are reviewed and are negative Physical Exam Vital Signs: Vital Signs: Last Vital Signs Temp 98.2 F 01/30/25 11:17 Pulse 94 01/30/25 11:17 Resp 18 01/30/25 11:17 BP 153/60 H 01/30/25 11:17 Pulse Ox 98 01/30/25 11:17 O2 Del Method Room Air 01/30/25 11:17 O2 Flow Rate 2 01/27/25 12:05 BMI result Body Mass Index 30.6 Const: Other: Constitutional : interactive, not in distress Cardiovascular : no JVP, no lower extremity edema Respiratory : bilateral chest movement, not in resp distress Gastrointestinal: soft, lax, Non tender Skin : Warm, Dry Neurological : Alert & oriented , No focal deficit Objective Data Active Medications Acetaminophen (Acetaminophen 325 Mg Tablet) 650 mg PO Q6H PRN PRN Reason: Pain, Mild 1-3,fever,headache Calcium Carbonate (Calcium Carbonate 750 Mg Tab.Chew) 750 mg PO Q4H PRN PRN Reason: Heartburn Magnesium Hydroxide (Milk Of Magnesia 30 Ml Oral.Susp) 30 ml PO DAILY PRN PRN Reason: Constipation Melatonin (Melatonin 3 Mg Tablet) 6 mg PO BEDTIME PRN PRN Reason: Insomnia Metoclopramide HCl (Metoclopramide Hcl 10 Mg/2 Ml Vial) 5 mg IVPUSH TID [facility] Last Admin: 01/30/25 09:09 Dose: Not Given Documented By: FERNADNO Non-Admin Reason: Patient Refused Naloxone HCl (Naloxone Hcl 0.4 Mg/Ml Vial) 0.04 mg IVPUSH Q5M PRN PRN Reason: Excessive sedation or RR < 8 Ondansetron HCl (Ondansetron Hcl 4 Mg/2 Ml Vial) 4 mg IVPUSH Q8H PRN PRN Reason: Nausea and Vomiting Pantoprazole Sodium (Pantoprazole Sodium 40 Mg/10 Ml Vial) 40 mg IVPUSH BID@0630,1630 [facility] Last Admin: 01/30/25 07:02 Dose: 40 mg Documented By: GEETA Simethicone (Simethicone 80 Mg Tab.Chew) 80 mg PO QIDWMHS [facility] Last Admin: 01/30/25 09:08 Dose: 80 mg Documented By: FERNANDO Sodium Chloride (0.9 % Sodium Chloride Flush 3 Ml Syringe) 3 ml IVFLUSH QSHIFT [facility] Last Admin: 01/30/25 09:08 Dose: 3 ml Documented By: FERNANDO Sucralfate (Sucralfate 1 Gm Tablet) 1 gm PO BIDAC [facility] Last Admin: 01/30/25 09:08 Dose: 1 gm Documented By: FERNANDO Labs 01/30/25 07:43 01/29/25 06:53 Labs: Laboratory Results - last 24 hr 01/30/25 07:43 MCV 89.3 MCH 31.0 MCHC 34.7 RDW 13.8 Plt Count 51 L D MPV 10.4 Immature Gran % (Auto) 0.8 H Neut % (Auto) 77.2 H Lymph % (Auto) 9.[address] [place] % (Auto) 10.7 Eos % (Auto) 1.0 Baso % (Auto) 0.5 Lymph # (Auto) 0.[address] [place] # (Auto) 0.9 Eos # (Auto) 0.1 Baso # (Auto) 0.0 Abs Immat Gran (auto) 0.07 H Absolute Neuts (auto) 6.5 Absolute Nucleated RBC 0.020 H Nucleated RBC % (auto) 0.2 Smear Tech's Comments VERIFIED Assessment and Plan (1) Hematemesis of fresh blood: Status: Acute (2) Severe anemia: Status: Acute (3) Melena: Status: Acute (4) Acute upper GI bleed: Status: Acute (5) Chemotherapy-induced neuropathy: Status: Acute (6) Pulmonary embolism: Status: Acute Plan Patient is a 64-year-old female with past medical history breast cancer diagnosed 2015 with Mets to the lung s/p lumpectomy, radiation and chemo current negative mammogram, 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 Patient dealing with metastatic gallbladder carcinoma and history of breast cancer with active metastases suspected to the lung. Patient recently diagnosed with PE early December 2024 on Eliquis. Acute on chronic blood loss anemia 2/2 acute GI bleed received Kcentra on presentation , Eliquis discontinued, 4 units of PRBCs transfused in total, Hb stable around 8.7 monitor H&H GI did EGD erythematous areas in the antrum that were oozing blood consistent with GAVE . these were ablated with APC and then hemospray was applied, duodenal sweep there was a punctate area of continuous oozing, clip applied and then sprayed with nexpowder restarted diet , monitor tolerance Protonix 40 IV b.i.d. for now Hematemesis with worsening anemia on 01/28 Hb stable , mildly dropped to 8.7 no more incidents Likely MW tear from vomiting post Op Octreotide infusion Dcd IV Iron supplement follow H&H acute on chronic Thrombocytopenia platelets 51 today after transfusion of total 4 units, goal >30 Heme\Onc following, DC Everolimus Recent PE DC Eliquis Vascular placed IVC filter 01/27. Gastritis/duodenitis/sigmoiditis Protonix ordered Avoid NSAIDS GI following Metastatic gallbladder carcinoma with liver metastases follows with [facility] Oncology and [facility] Oncology consulted noting CT scan shows innumerable hepatic lesions currently present. CTA also showing Numerous bilateral pulmonary nodules measuring up to 6 mm, highly suspicious for metastases. The majority of these are new or enlarged. patient does not appear ready to discuss hospice and palliative care although consultation may be indicated for this admission as patient states she needs more help while living alone case management consulted Transaminitis secondary to metastatic gallbladder carcinoma likely avoid hepatotoxic medications History of breast cancer with current suspected lung metastases per oncology Peripheral neuropathy secondary to chemotherapy continue gabapentin Osteoarthritis supportive care pain management with low-dose Tylenol DVT prophylaxis: Held due to GI bleed PPI prophylaxis: Protonix IV 40 b.i.d. Full Code status, this was reviewed with patient Quality Stroke Does the patient have a stroke diagnosis?: No Reason for No Anti-thrombotic by Day Two: Contraindicated VTE Prior VTE?: No VTE Risk Level:: Medical - moderate - high VTE Device Contraindication: N/A - Device Ordered VTE Drug Contraindication: Treatment Not Indicated
--- NOTE | 2025-01-30 14:02 | PC.NURSE ---
ambulated on the hallway , c/o SOB ,oxygen saturation 97% on RA.
[2025-01-30 15:30] VITALS: BP 127/58; PULSE 98; RESP 18; TEMP 36.8; O2SAT 100
[2025-01-30 20:00] VITALS: BP 117/62; PULSE 89; RESP 16; TEMP 36.1; O2SAT 98
[2025-01-31] VITALS: BP 132/61; PULSE 97; RESP 16; TEMP 36.1; O2SAT 95
[2025-01-31 04:00] VITALS: BP 133/60; PULSE 93; RESP 16; TEMP 36.7; O2SAT 99
[2025-01-31 06:00] VITALS: BMI 30.4
[2025-01-31] MEDS: Pantoprazole Sodium 40 MG/10 ML VIAL IVPUSH (06:06)
[2025-01-31 07:05] LABS: MANUAL DIFF FLAG NO
[2025-01-31 07:14] LABS: Basophils Percent Auto 0.2 % (0-2); Eosinophils Absolute Auto 0.1 X10*3/uL (0.0-0.4); Eosinophils Percent Auto 0.7 % (0-4); Hematocrit 22.4 % (37.0-47.0); Hemoglobin 8.1 g/dl (12.0-16.0); Imm Gran Abs Auto 0.08 X10*3/uL (0.00-0.03); Imm Gran Pct Auto 0.9 % (0.0-0.4); Lymphocytes Absolute Auto 1.2 X10*3/uL (1.2-4.9); Lymphocytes Percent Auto 13.6 % (20-40); Mean Corpuscular HGB Conc 36.2 g/dl (31.0-35.0); Mean Corpuscular Hemoglobin 31.6 pg (27.0-33.0); Mean Corpuscular Volume 87.5 fL (80.0-98.0); Mean Platelet Volume 10.6 fL (9.4-12.3); Monocytes Percent Auto 11.2 % (2-11); Neutrophils Absolute Auto 6.6 x10*3/uL (2.0-8.3); Neutrophils Percent Auto 73.4 % (45-73); Red Blood Count 2.56 X10*6/uL (4.20-5.50); Red Cell Distribution Width 13.8 % (11.0-16.0); White Blood Count 8.9 X10*3/uL (4.8-10.8)
[2025-01-31 07:16] LABS: Platelet Count 43 X10*3/uL (160-400)
[2025-01-31 07:35] LABS: Anion Gap 9 (12-20); Blood Urea Nitrogen 14 mg/dL (9-16); Calcium 7.6 mg/dL (8.4-10.2); Carbon Dioxide 27 mmol/L (22-29); Chloride 104 mmol/L (96-108); Creatinine Clr Calc Pharmacy 99.5; Estimated Glomerular Filt Rate > 60; Glucose Random 119 mg/dL (60-115); Potassium 3.2 mmol/L (3.3-5.1); Sodium 137 mmol/L (135-145)
[2025-01-31 07:54] VITALS: BP 106/52; PULSE 102; RESP 20; TEMP 36.3; O2SAT 99
[2025-01-31] MEDS: Sucralfate 1 GM TABLET PO (08:32)
[2025-01-31] MEDS: Potassium Chloride ER 20 MEQ TAB.ER.PRT PO (08:32)
[2025-01-31] MEDS: Simethicone 80 MG TAB.CHEW PO ×2 (08:33→13:12)
[2025-01-31] MEDS: 0.9 % Sodium Chloride Flush 3 ML SYRINGE IVFLUSH (08:36)
--- NOTE | 2025-01-31 08:47 | MHC.CM.PN ---
EMR REVIEWED, [facility] OFFERING STR BED AND REQUESTING UPDATED OT/PT NOTES, CM TO SEND ONCE COMPLETED AND WILL CONT TO FOLLOW DC NEEDS.
--- NOTE | 2025-01-31 10:53 | MHC.CM.PN ---
PT MEDICALLY CLEARED FOR DC TO SONS HOME AT [address] [facility] W/NEW [facility] FOR SN/OT AND NEW REFERRAL FOR [facility], PT'S SON FOR TRANSPORT AT APPROX 1:30PM
--- NOTE | 2025-01-31 11:17 | HO.POSTANES ---
Post Anesthesia Evaluation Post Anesthesia Evaluation Date of Service: 01/27/25 Vital Signs: Vital Signs Temp Pulse Resp BP Pulse Ox O2 Del Method 01/31/25 07:54 97.4 F 102 H 20 106/52 L 99 Room Air 01/31/25 04:00 98.1 F 93 16 133/60 99 Room Air 01/31/25 00:00 96.9 F 97 16 132/61 95 Room Air Anesthesia: Monitored Mental Status: Awake Pain Control: Satisfactory Nausea/Vomiting: None Hydration: Adequate Anesthesia-Related Issues: No Anes. Related Issues
[2025-01-31 12:00] VITALS: BP 117/57; PULSE 97; RESP 18; TEMP 37.6; O2SAT 98
--- NOTE | 2025-01-31 12:48 | W.MHC.F2F ---
Service Date Service Date: 01/31/25 Encounter Date of encounter: 01/31/25 Reasons for Services Signs and symptoms assessed: PHysical deconditioning Monitor blood level Reason for longterm: teach disease management and GI/ assessment Reason for physical therapy: home safety and mobility and therapeutic exercises Reason for occupational therapy: home safety and mobility and therapeutic exercises Homebound: Leaving the home is medically contraindicated at this time without the asist of a device and/or another person due th the listed conditions above and below. Reason homebound: unsteady gait / fall risk and unable to drive Certification: Based on the above findings, I certify that this patient is confined to the home and needs intermittent longterm care, physical therapy and/or speech therapy, or continues to need occupational therapy. The patient is under my care, and I have initiated the establishment of the plan of care. The patient will be followed by a physician who will periodically review the plan of care. Time Spent With Patient Time: Total time managing care of this patient today ____ minutes.
--- NOTE | 2025-01-31 12:49 | P.DS_ITS ---
DS: Providers Provider Date of Service: 01/31/25 Date of admission: 01/25/25 21:12 Date of discharge: 01/31/25 Primary care physician: Adria Rubio MD Consults: 01/25/25 21:14 Consult to Gastroenterology Routine Consulting Provider: Joby Adhikari Reason for consultation: GIB 01/25/25 22:58 Consult to Hematology / Oncology Routine Consulting Provider: [facility] [place]/Hematology Reason for consultation: Metastatic gallbladder carcinoma 01/26/25 07:55 Consult to Vascular Surgery Routine Consulting Provider: [facility] Vascular Services Reason for consultation: PE, DVT hx, can not tolerate blood thinner, for IVC Filter placement DS: Diagnosis Discharge Diagnosis (1) Hematemesis of fresh blood: Status: Acute (2) Severe anemia: Status: Acute (3) Melena: Status: Acute (4) Acute upper GI bleed: Status: Acute (5) Chemotherapy-induced neuropathy: Status: Acute (6) Pulmonary embolism: Status: Acute (7) GIB (gastrointestinal bleeding): Status: Acute (8) Physical deconditioning: Status: Acute DS: Summary Hospital Course Hospital Course: Admission note HPI Patient is a 64-year-old female with past medical history breast cancer diagnosed 2015 with Mets to the lung s/p lumpectomy, radiation and chemo current negative mammogram, 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 Patient asked her son to bring her to the emergency department due to her level of shortness of breath. Patient reported black stools to her oncologist on her visit 01/20/2025. Patient was transfused 2 units of blood through her oncologist but refused to be hospitalized. Patient had been started on Eliquis for previous PE back in early December 2024. Patient has history of blood clots and has been noncompliant with anticoagulation in the past. Patient does not present with hypoxia or chest pain. Patient is not tachypneic or tachycardic. Patient denies fever, chills, nausea or vomiting. Patient denies any recent falls. In the emergency room, H&H 6.6 and 19. Platelets 23,000. Patient did receive 1 dose of Kcentra in the emergency department. Patient also being transfused [address] of the abdomen and pelvis negative for active GI hemorrhage. Evidence of gastritis/duodenitis/sigmoiditis present on CT. Incidentally interval worsening of innumerable hepatic lesions may indicate progression of known metastatic disease. GI has been consulted. Eliquis remains on hold. Case management has been consulted as patient feels she needs increased support in the home setting as she has no help currently and lives alone. PT evaluation will be ordered in case patient could benefit from short-term rehab. Prior patient was living with her son in [place] and decided to obtain her own apartment. Will consult Oncology as patient does not appear to be ready to discuss hospice and palliative care. Patient has completed 2 weeks of her oral medication which was recently approved by [employer]. Patient is working with [facility] [place]. Hospital course The patient was evaluated for: # Acute on chronic blood loss anemia 2/2 acute GI bleed at time of presentation. received Kcentra in ED , Eliquis discontinued, 4 units of PRBCs transfused in total, Hb stable around 8.1 at time of discharge. She was treated with IV Octretide, IV PRotonix, Carafate and transfusion of blood and platelets. GI did EGD erythematous areas in the antrum that were oozing blood consistent with GAVE . these were ablated with APC and then hemospray was applied, duodenal sweep there was a punctate area of continuous oozing, clip applied and then sprayed with nexpowder. To discharge on Carafate, Pantoprazole and Iron supplement. To monitor H&H at home. # Hematemesis with worsening anemia on 01/28 only. Hb remained stable , mildly dropped to 8.7. no more incidents. Likely MW tear from vomiting post EGD when she was feeling bloated. received Octreotide infusion and IV Iron supplement. # acute on chronic Thrombocytopenia. Likely related to acute bleeding , Everolimus and Eliquis. Improved after transfusion of total 4 units with goal >30. Heme\Onc followed her and recommended DC Everolimus with a plan to repeat CBC as outpatient and follow in clinic. # Recent PE on Eliquis. Discontinued Eliquis for major bleeding. Vascular placed IVC filter 01/27. Consider restarting differend blood thinner if PLT improves >100 # Metastatic gallbladder carcinoma with liver metastases follows with [facility] and [facility]. Oncology consulted noting CT scan shows innumerable hepatic lesions currently present. CTA also showing Numerous bilateral pulmonary nodules measuring up to 6 mm, highly suspicious for metastases. The majority of these are new or enlarged. patient does not appear ready to discuss hospice and palliative care although consulta tion may be indicated for this admission as patient states she needs more help while living alone. case management consulted and will have [facility] on discharge for PT and OT. # Transaminitis secondary to metastatic gallbladder carcinoma. Stable. avoid hepatotoxic medications Discharge plan To repeat blood work in 3 days; visiting nurses to draw the blood Start Pantoprazole 40 mg twice a day Start Carafate 2 times a day (take in different time from the pantoprazole) Iron supplement twice a day Stop Eliquis, Everolimus To follow with Dr Doan as outpatient PHysical and occupational therapy at home Come back to emergency for increase weakness, shortness of breath or bloody bowel movement\melena Time Attestation Discharge Coordination Time (in mins): 47 Quality: Safe Use of Opioids Does Pt have an Active Cancer Diagnosis on the Problem List?: Yes Opioid Measure Date for [facility] Report: 01/01/25 Opioid Measure Time for [facility] Report: 13:22 Quality: Stroke Does the patient have a stroke diagnosis?: No Physical Exam Vital Signs: Vital Signs: Last Vital Signs Temp 99.7 F 01/31/25 12:00 Pulse 97 01/31/25 12:00 Resp 18 01/31/25 12:00 BP 117/57 L 01/31/25 12:00 Pulse Ox 98 01/31/25 12:00 O2 Del Method Room Air 01/31/25 12:00 O2 Flow Rate 2 01/27/25 12:05 BMI result Body Mass Index 30.4 Const: Other: Constitutional : interactive, not in distress Cardiovascular : no JVP, no lower extremity edema Respiratory : bilateral chest movement, not in resp distress Gastrointestinal: soft, lax, Non tender Skin : Warm, Dry Neurological : Alert & oriented , No focal deficit DS: Data Data Completed and Pending Labs on day of discharge: Laboratory Results - last 24 hr 01/28/25 01/31/25 22:16 07:00 WBC 8.9 RBC 2.56 L Hgb 8.1 L Hct 22.4 L MCV 87.5 MCH 31.6 MCHC 36.2 H RDW 13.8 Plt Count 43 L MPV 10.6 Immature Gran % (Auto) 0.9 H Neut % (Auto) 73.4 H Lymph % (Auto) 13.6 L [place] % (Auto) 11.2 H Eos % (Auto) 0.7 Baso % (Auto) 0.2 Lymph # (Auto) 1.2 [place] # (Auto) 1.0 Eos # (Auto) 0.1 Baso # (Auto) 0.0 Abs Immat Gran (auto) 0.08 H Absolute Neuts (auto) 6.6 Absolute Nucleated RBC 0.000 Nucleated RBC % (auto) 0.0 Sodium 137 Potassium 3.2 L Chloride 104 Carbon Dioxide 27 Anion Gap 9 L BUN 14 Creatinine 0.55 Estim Creat Clear Calc 99.5 Estimated GFR > 60 Random Glucose 119 H Calcium 7.6 L Crossmatch See Detail Imaging CT scan - abdomen: Radiologist's impression: ITS Impressions Chest X-Ray 01/28/25 12:50 IMPRESSION: No acute cardiopulmonary abnormality. Electronically signed by: Andi Tan MD 01/28/2025 01:09 PM EDT RP Discharge Plan Discharge Anticipated Discharge Date/Time: 01/31/25 12:37 Patient Disposition: Home Health Service Discharge Diagnosis: GI bleeding Anemia Referrals: [facility] ([facility]) [Other] - 1 Week (REFERRAL PLACED FOR HOME HEALTH SERVICES HOWEVER YOU WILL NEED TO BE AT YOUR HOME FOR THEM TO ASSESS YOU FOR SERVICES, IF YOU PLAN ON STAYING AT YOUR SONS PERMANENTLY PLEASE CONTACT [facility] AT [phone].) [facility] [Outside] - 3-5 Days (A NURSE WILL REACH OUT TO YOU TO ARRANGE FIRST VISIT WITHIN 48HRS OF DISCHARGE. [facility] AND OCCUPATIONAL THERAPY. ) Adria Rubio MD [Primary Care Provider] - 1 Week Discharge Medications: New sucralfate 1 gram Tablet 1 g PO BIDAC Qty: 180 0RF pantoprazole 40 mg tablet,delayed release (DR/EC) 40 mg PO BID Qty: 180 0RF ferrous sulfate 324 mg (65 mg iron) tablet,delayed release (DR/EC) 324 mg PO BID Qty: 180 0RF Continued cholecalciferol (vitamin D3) 25 mcg (1,000 unit) tablet 25 mcg PO DAILY Qty: 90 3RF exemestane [Aromasin] 25 mg Tablet 25 mg PO DAILY Qty: 30 3RF Rx Instructions: must administer after a meal Tab-A-Marissa Multivitamin w-iron 15 mg iron- 400 mcg tablet 1 tab PO DAILY ondansetron 4 mg tablet,disintegrating 4 mg PO Q8H PRN (Reason: nausea and vomiting) Qty: 30 0RF clotrimazole-betamethasone 1-0.05 % cream 1 appl topical DAILY (DME) bath stole See Rx Instructions .Route .MEDSUPPLY Qty: 1 0RF Rx Instructions: As directed (DME) compression stockings medium See Rx Instructions .Route .MEDSUPPLY Qty: 1 0RF Rx Instructions: As directed Discontinued everolimus (antineoplastic) 7.5 mg Tablet 7.5 mg PO DAILY Qty: 30 3RF omeprazole 20 mg capsule,delayed release(DR/EC) 20 mg PO BID@0630,1630 Eliquis DVT-PE Treat 30D Start 5 mg (74 tabs) tablets,dose pack 5 mg PO BID Qty: 74 0RF Discharge Orders: Discharge Order (Routine); Ordered 01/31/25 Ordered By: Jasen Rawls Diet: Advance to usual diet Activity on Discharge: As tolerated Stand Alone Forms: Patient Portal Discharge page Print Language: Paraguayan Other Ambulatory Orders: Complete Blood Count Auto Diff (Routine) Timeframe: 3 Days Facility: [facility] - Location: Laboratory Ordered By: Jasen Rawls Care Plan Goals: To repeat blood work in 3 days; visiting nurses to draw the blood Start Pantoprazole 40 mg twice a day Start Carafate 2 times a day (take in different time from the pantoprazole) Iron supplement twice a day Stop Eliquis, Everolimus To follow with Dr Doan as outpatient PHysical and occupational therapy at home Come back to emergency for increase weakness, shortness of breath or bloody bowel movement\melena Health Concerns: Gastrointestinal bleeding Symptomatic anemia Progressing cancer Plan of Treatment: Iron supplement; stopping blood thinner; follow blood level Pantoprazole and Carafate Assessment: as above Patient Instructions: Blood Transfusion Discharge Instructions
[2025-02-02 09:43] LABS: Carbohydrate Antigen 19-9 >700000 U/mL (<34)
--- NOTE | 2025-02-09 07:53 | P.CDIM_ITS ---
PROVIDER RESPONSE TEXT: To clarify, the appropriate diagnosis supported by the clinical indicators: Yes, GIB is due to/because of/as a result of Eliquis QUERY TEXT: PHYSICIAN'S DOCUMENTATION REQUEST Date of Query: 02/08/2025 08:59 AM EDT Patient Name: Susana Sanchez Admit Date: 01/26/2025 Dear Jasen Rawls MD, A review of the medical record indicates additional documentation may be needed. Please review below and update the documentation accordingly. Documentation includes the conditions of GI bleed and Eliquis use. Clinical Indicators: per H&P : being admitted for GI bleed while on Eliquis The Discharge Summary states: acute on chronic Thrombocytopenia. Likely related to acute bleeding , Everolimus and Eliquis Please clarify the relationship between these conditions: Yes, GIB is due to/because of/as a result of Eliquis No, GIB is not due to/because of/as a result of Eliquis Other (explain) Clinically unable to determine (explain) Thank you, [place] RN Use of terms such as suspected, likely, concern for, or probable (associated with a specific diagnosi s that is being evaluated, monitored, or treated as if it exists) are acceptable and can be coded in the inpatient se tting, when documented at the time of discharge. Please use your independent medical judgment in providing your response. THIS QUERY IS PART OF THE PERMANENT MEDICAL RECORD
== END 2025-01-31 15:14 | disposition home health service (06) | DRG 661 ==
LOC: HO.ED 21:26 → HO.EDOVER 21:32 → HO.IMC 01-26 05:14
PROVIDERS: Internal Medicine; Internal Medicine Gastroenterology; Surgery Vascular Surgery; Admitting Provider Nurse Practitioner Family; Emergency Provider Emergency Medicine; PCP Internal Medicine; Visit Provider Student in an Organized Health Care Education/Training Program
PROC: 06H03DZ Insertion of Intraluminal Device into Inferior Vena Cava, Percutaneous Approach (ICD-10-PCS; principal; 2025-01-27 11:30)
PROC: 0DJ08ZZ Inspection of Upper Intestinal Tract, Via Natural or Artificial Opening Endoscopic (ICD-10-PCS; CPT 43235; principal; 2025-01-27 14:10)
DX: D68.32 Hemorrhagic disorder due to extrinsic circulating anticoagulants (principal); K22.6 Gastro-esophageal laceration-hemorrhage syndrome; C78.01 Secondary malignant neoplasm of right lung; C23 Malignant neoplasm of gallbladder; K31.811 Angiodysplasia of stomach and duodenum with bleeding; K25.0 Acute gastric ulcer with hemorrhage; C78.02 Secondary malignant neoplasm of left lung; C78.7 Secondary malignant neoplasm of liver and intrahepatic bile duct; D69.59 Other secondary thrombocytopenia; D62 Acute posthemorrhagic anemia; Z20.822 Contact with and (suspected) exposure to COVID-19; Z86.711 Personal history of pulmonary embolism; Z86.718 Personal history of other venous thrombosis and embolism; I25.10 Atherosclerotic heart disease of native coronary artery without angina pectoris; G62.0 Drug-induced polyneuropathy; T45.1X5A Adverse effect of antineoplastic and immunosuppressive drugs, initial encounter; T45.515A Adverse effect of anticoagulants, initial encounter; M19.90 Unspecified osteoarthritis, unspecified site; Z85.3 Personal history of malignant neoplasm of breast; Z79.01 Long term (current) use of anticoagulants; Z79.899 Other long term (current) drug therapy
CPT/HCPCS: 0241U; 36415; 37191; 71045; 74178; 80048; 80053; 80076; 81001; 81003; 82272; 82378; 82607; 83540; 83690; 83735; 83880; 84484; 85025; 85027; 85610; 85730; 86140; 86301; 86850; 86900; 86901; 86923; 93005; 97110; 97161; 97166; 99285; C1769; C1880; C1889; C1894; J1644; J1756; J2003; J2250; J2270; J2354; J2470; J2704; J3010; J7120; J7168; P9016; P9073; Q9967

== ENCOUNTER → 2025-01-25 17:02 | Outpatient (BNV) | payer OTHER, SELFPAY | PROVIDERS: Admitting Provider Nurse Practitioner Family; Emergency Provider Emergency Medicine; Visit Provider Internal Medicine Cardiovascular Disease | DX: R00.0 Tachycardia, unspecified (principal) | CPT/HCPCS: 93010 ==

== ENCOUNTER → 2025-01-25 17:03 | Outpatient (BNV) | payer OTHER, SELFPAY | PROVIDERS: Emergency Provider Emergency Medicine; Visit Provider Student in an Organized Health Care Education/Training Program | DX: R06.02 Shortness of breath (principal); R10.12 Left upper quadrant pain | CPT/HCPCS: 71045; 74178 ==

== ENCOUNTER 2025-01-25 21:12 | Outpatient (BNV) | payer OTHER, SELFPAY | END 2025-01-28 12:50 | PROVIDERS: Admitting Provider Nurse Practitioner Family; Emergency Provider Emergency Medicine; PCP Internal Medicine; Visit Provider Radiology Diagnostic Radiology | DX: R06.02 Shortness of breath (principal) | CPT/HCPCS: 71045 ==

== ENCOUNTER → 2025-01-25 21:12 | Outpatient (BNV) | payer OTHER, SELFPAY | PROVIDERS: Admitting Provider Nurse Practitioner Family; Emergency Provider Emergency Medicine; Visit Provider Nurse Practitioner Family | DX: I26.99 Other pulmonary embolism without acute cor pulmonale (principal); D64.9 Anemia, unspecified; K92.1 Melena; K92.2 Gastrointestinal hemorrhage, unspecified | CPT/HCPCS: 99223; 99233 ==

== ENCOUNTER → 2025-01-25 21:12 | Outpatient (BNV) | payer OTHER, SELFPAY | PROVIDERS: Admitting Provider Nurse Practitioner Family; Emergency Provider Emergency Medicine; Visit Provider Surgery Vascular Surgery | DX: Z86.718 Personal history of other venous thrombosis and embolism (principal) | CPT/HCPCS: 37191; 99222; 99232 ==

== ENCOUNTER → 2025-01-25 21:12 | Outpatient (BNV) | payer OTHER, SELFPAY | PROVIDERS: Admitting Provider Nurse Practitioner Family; Emergency Provider Emergency Medicine; Visit Provider Internal Medicine Gastroenterology | DX: K92.2 Gastrointestinal hemorrhage, unspecified (principal) | CPT/HCPCS: 99223 ==

== ENCOUNTER → 2025-01-25 21:12 | Outpatient (BNV) | payer OTHER, SELFPAY | PROVIDERS: Admitting Provider Nurse Practitioner Family; Emergency Provider Emergency Medicine; PCP Internal Medicine; Visit Provider Internal Medicine | DX: C22.1 Intrahepatic bile duct carcinoma (principal) | CPT/HCPCS: 99222; 99232 ==

== ENCOUNTER 2025-02-02 13:41 | Outpatient (AMB) | payer OTHER, SELFPAY ==
[2025-02-02 13:47] VITALS: BP 112/64; PULSE 116; RESP 20; O2SAT 97; BMI 30.2
--- NOTE | 2025-02-02 13:47 | A.OFFPC_ITS ---
Vital Signs 02/02/25 13:47 Height 5 ft 2 in Weight 165 lb BMI 30.2 BP 112/64 Blood Pressure Location Rt brachial Position Sitting Respiration 20 Pulse 116 H Pulse Source Pulse Oximeter Pulse Oximetry (%) 97 Oxygen Delivery Method Room Air Intake Visit Reasons: HDF ~ Post hospital discharge FU Allergies Penicillins [PENICILLINS] Allergy (Severe, Verified 02/02/25 13:48) ANAPHYLAXIS, swelling streptomycin [STREPTOMYCIN] Allergy (Severe, Verified 02/02/25 13:48) ANAPHYLAXIS Medication List - Last Reconciled 02/02/25 by Adria Rubio MD [bath stole As directed] cholecalciferol (vitamin D3) 25 mcg PO DAILY clotrimazole-betamethasone 1-0.05 % 1 appl topical DAILY [compression stockings As directed] exemestane (Aromasin) 25 mg PO DAILY ferrous sulfate 324 mg PO BID multivit-iron sulf-folic acid 15 mg iron- 400 mcg (Tab-A-Marissa Multivitamin w- iron) 1 tab PO DAILY ondansetron 4 mg PO Q8H PRN pantoprazole 40 mg PO BID sucralfate 1 g PO BIDAC Tobacco use date assessed: 02/02/25 Dental Screening Dental Screen Date: 02/02/25 Did you have a dental visit in the last 12 months?: No Did you have a dental problem in the last 6 months where you did not have access to dental care?: No Was dental information given to patient?: Patient has dentist HPI HDF ~ Post hospital discharge FU HPI Details Date of admission January 25, 2025 date of discharge January 31, 2025 [facility] Reason for admission gastrointestinal bleeding Consultations were performed by Dr. 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 Recently developed pulmonary embolism and was placed on Eliquis Developed thrombocytopenia Patient also have coronary artery disease osteoarthritis osteopenia peripheral neuropathy secondary to chemotherapy, GERD Found to be severely anemic when presented with shortness a breath Her hemoglobin was 6.6 and platelets were 23,000 She was treated accordingly transfused [address] scan of abdomen and pelvis was negative for active GI hemorrhage There was evidence of gastritis/duodenitis/sigmoiditis present on CT There was progression of metastatic liver Palliative care and hospice is under discussion Plan: Need repeat blood work She was started on pantoprazole 40 mg b.i.d. she is to continue that Also Carafate 2 times a day She was given iron supplement 2 times a day Eliquis was stopped Physical and occupational therapy was ordered for home Patient has gone back to her son's house she is here with her daughter in-law Has been feeling very weak and has been having epigastric discomfort Patient says that she is feeling bloated and feels as if she has to work but is not able to I have sent in Gas-X tablets for the patient She is to have the labs done today to ensure stability of hemoglobin and platelets If platelets going down or hemoglobin going down again patient will be heading back to emergency room Review of Systems - Gastrointestinal: Reports abdominal pa in and lack of appetite. - General: No fever no chills - Neurological: No headaches , but feeling dizzy and weak - Ear nose throat: No sore throat no hearing difficulty no ear pain - Cardiovascular: No syncope, no chest pain, no palpitations - Gastrointestinal: Feeling nauseous and have no appetite no diarrhea - Endocrine: No polyuria polydipsia no heat intolerance - Genitourinary: No dysuria , no blood in urine Physical Exam General: Pale looking female looks weak and in some discomfort HEENT: No acute findings Neck: Supple Respiratory system: Able to talk in full sentences, no audible wheeze Cardiovascular: S1-S2 Gastrointestinal: Feeling a lot of pain, in epigastric area, bowel sound present but infrequent Extremities: No new findings 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 oriented x3 , able to walk by herself Skin: Normal turgor, skin clearly pale PFSH Medical History Metastatic disease Metastatic cancer to liver Pulmonary embolism Metastasis from gallbladder cancer Pulmonary embolism Pulmonary nodules Pneumonitis Chest pain Chronic cough Vaginal yeast infection Breast lump on right side at 5 o'clock position History of colon polyps Breast cancer, left (~10/2016) Spondylosis Back pain Neuropathy Surgical History Hx of cholecystectomy History of esophagogastroduodenoscopy (EGD) History of lumpectomy of right breast (06/26/22) Hx of vein stripping Hx of colonoscopy (~10/2018) S/P breast lumpectomy Family History Mother No problems noted. Father No problems noted. Other No family history of cancer Social History Household Members: None Housing: Apartment Are you a primary care specialist to a significant other at home: No Do you presently have visiting nurse or other home services: No Unable to assess alcohol history related to: Unknown Alcohol intake: never Comment: med with oxycodone 5 mg po in PACU Patient Tobacco Use Status: Never used Tobacco e-Cigarette/Vaping Use: Never Used Second Hand Smoke Exposure: No service: No Current occupational status: disabled Current occupation: rt handed Cognitive needs: No Hearing needs: No Vision needs: Yes Female Reproductive History Menstrual Age of Menarche: 15 Questionnaire PHQ-9 Over the last 2 weeks, how often have you been bothered by any of the following problems? 1. Little interest or pleasure in doing things: not at all 2. Feeling down, depressed, or hopeless: nearly every day 3. Trouble falling or staying asleep, or sleeping too much: nearly every day 4. Feeling tired or having little energy: nearly every day 5. Poor appetite or overeating: nearly every day 6. Feeling bad about yourself - or that you are a failure or have let yourself or your family down: nearly every day 7. Trouble concentrating on things, such as reading the newspaper or watching television: nearly every day 8. Moving or speaking so slowly that other people could have noticed. Or the opposite - being so fidgety or restless that you have been moving around a lot more than usual: nearly every day 9. Thoughts that you would be better off or of hurting yourself in some way: nearly every day Total score: 24 Depression Screening Interpretation: Positive Depression Screening Done: Yes 88583 - PHQ-9 Billing: Yes Source: Developed by Drs. Andi Kim, AshleyDonovan Rodrigues and colleagues, with an educational reji from [employer]. Thrive Questionnaire Date Thrive assessed: 02/02/25 I am a: Patient What is your living situation today?: I choose not to answer this question Within the past 12 months, did the food you bought not last and you didn't have the money to get more?: I choose not to answer this question Within the past 12 months, did you worry whether your food would run out before you got money to buy more?: I choose not to answer this question Do you have trouble paying for medicines?: I choose not to answer this question Do you have trouble getting transportation to medical appointments?: Yes Do you have trouble paying your heating and electricity bill?: I choose not to answer this question Do you have trouble taking care of your child, family member or friend?: I choose not to answer this question Do you have trouble with day-to-day activities such as bathing, preparing meals, shopping, managing finances, etc.?: I choose not to answer this question Are you currently unemployed and looking for a job?: I choose not to answer this question Are you interested in more education?: I choose not to answer this question Please select the resources that you would like help with: None Currently or been in a relationship where the following occur: I choose not to answer THRIVE Score: 1 AUDIT C Alcohol Use Questionnaire (AUDIT-C) 1. How often do you have a drink containing alcohol?: Never 3. How often do you have six or more drinks on one occasion?: Never Total Score: 0 Score Reviewed/Action Taken: Yes INOCENCIO-7 AMB Questionnaire INOCENCIO-7 Date INOCENCIO - 7 assessed: 12/08/24 Source: Developed by Drs. Andi Kim, Ashley Watson, Donovan Jones and colleagues, with an educational reji from [employer]. Physical exam (Primary Care) Vital Signs: Last Vital Signs Pulse 116 H 02/02/25 13:47 Resp 20 02/02/25 13:47 BP 112/64 02/02/25 13:47 Pulse Ox 97 02/02/25 13:47 Oxygen Delivery Method Room Air 02/02/25 13:47 BMI result Body Mass Index 30.2 Tobacco/Smoking Status: Tobacco use Status Tobacco use date assessed 02/02/25 02/02/25 13:48 Patient Tobacco Use Status Never used Tobacco 02/02/25 13:47 e-Cigarette/Vaping Use Never Used 02/02/25 13:47 PHQ-9: PHQ-9 Score PHQ-9: Total score 24 02/02/25 14:09 Depression Screening Interpretation: Positive Thrive Assessment: Date of Thrive Assessment Date Thrive assessed 02/02/25 02/02/25 13:47 Currently or been in a relationship where the following occur: I choose not to answer Coding Level of Care Code Est Pt Level 5 (45579) Diagnoses Hospital discharge follow-up Z09 Severe anemia D64.9 Shortness of breath R06.02 Metastatic cholangiocarcinoma C22.1 Failure to thrive in adult R62.7 Acute deep vein thrombosis (DVT) of lower extremity, unspecified laterality, unspecified vein I82.409 Affected thrombotic vein of extremity: unspecified vein of extremity Chronicity: acute DVT location: lower extremity Laterality: unspecified laterality Risk for falls Z91.81 Epigastric pain R10.13 Abdominal bloating R14.0 Additional Codes PHQ-9 - 34789 - PHQ-9 Billing: Yes ([id number]) Time Spent (min) 40 Comment Reviewing hospital notes, [id number] with patient and daughter in-law/ coordination Assessment & Plan Assessment & Plan (1) Hospital discharge follow-up: Code(s): Z09 - Encounter for follow-up examination after completed treatment for conditions other than malignant neoplasm Category: Medical (2) Severe anemia: Code(s): D64.9 - Anemia, unspecified Category: Medical (3) Shortness of breath: Code(s): R06.02 - Shortness of breath Category: Medical (4) Metastatic cholangiocarcinoma: Code(s): C22.1 - Intrahepatic bile duct carcinoma Category: Medical (5) Failure to thrive in adult: Code(s): R62.7 - Adult failure to thrive Category: Medical (6) DVT (deep venous thrombosis): Code(s): I82.409 - Acute embolism and thrombosis of unspecified deep veins of unspecified lower extremity Category: Medical Qualifiers: Affected thrombotic vein of extremity: unspecified vein of extremity Chronicity: acute DVT location: lower extremity Laterality: unspecified laterality Qualified Code(s): I82.409 - Acute embolism and thrombosis of unspecified deep veins of unspecified lower extremity (7) Risk for falls: Code(s): Z91.81 - History of falling Category: Medical (8) Epigastric pain: Code(s): R10.13 - Epigastric pain Category: Medical (9) Abdominal bloating: Code(s): R14.0 - Abdominal distension (gaseous) Category: Medical Plan Date of admission January 25, 2025 date of discharge January 31, 2025 [facility] Reason for admission gastrointestinal bleeding Consultations were performed by Dr. 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 Recently developed pulmonary embolism and was placed on Eliquis Developed thrombocytopenia Patient also have coronary artery disease osteoarthritis osteopenia peripheral neuropathy secondary to chemotherapy, GERD Found to be severely anemic when presented with shortness a breath Her hemoglobin was 6.6 and platelets were 23,000 She was treated accordingly transfused [address] scan of abdomen and pelvis was negative for active GI hemorrhage There was evidence of gastritis/duodenitis/sigmoiditis present on CT There was progression of metastatic liver Palliative care and hospice is under discussion Plan: Need repeat blood work She was started on pantoprazole 40 mg b.i.d. she is to continue that Also Carafate 2 times a day She was given iron supplement 2 times a day Eliquis was stopped Physical and occupational therapy was ordered for home Patient has gone back to her son's house she is here with her daughter in-law Has been feeling very weak and has been having epigastric discomfort Patient says that she is feeling bloated and feels as if she has to work but is not able to I have sent in Gas-X tablets for the patient She is to have the labs done today to ensure stability of hemoglobin and platelets If platelets going down or hemoglobin going down again patient will be heading back to emergency room Orders: Orders Ferritin Today D64.9 - Anemia, unspecified, R06.02 - Shortness of breath Complete Blood Count Auto Diff Today D64.9 - Anemia, unspecified, R06.02 - Shortness of breath Comprehensive Met. Panel Today D64.9 - Anemia, unspecified, R06.02 - Shortness of breath Medications: New simethicone (Gas Relief (simethicone)) 125 mg PO BID-QID PRN 30 tabs 0RF abdominal distention 10 days [walker with seat] As directed 1 ea 0RF C22.1 - Intrahepatic bile duct carcinoma, D64.9 - Anemia, unspecified, I47.19 - Other supraventricular tachycardia, I82.409 - Acute embolism and thrombosis of unspecified deep veins of unspecified lower extremity, R06.02 - Shortness of breath, R62.7 - Adult failure to thrive, Z91.81 - History of falling
--- OUTSIDE RECORDS SUMMARY | 2025-02-02 13:54 | XMS_ITS | Clinical Summary ---
Author Organization [facility] Address [address] [place] [address] Care Team Providers Care Senior Geotechnical Engineer Name Role Phone Adria Rubio MD Primary Care Provider [phone] Allergies Active Allergy Reactions Criticality Noted Date [...] Date Rotator cuff tendonitis 09/30/2024 Sacroiliitis ([facility] V24) 09/30/2024 Segmental and somatic dysfunction of sacral tiki on 09/30/2024 Chronic pain of right hip 09/30/2024 Greater trochanteric bursitis 09/30/2024 Lumbar spondylosis 06/30/2024 Back pain 06/30/2024 Malignant neoplasm of left b reast ([facility] V24, [facility] V28) 06/30/2024 Chest pain 06/30/2024 Chronic cough 06/30/2024 History of colon polyps 06/30/2024 Neuropathy 06/30/2024 Pneumonitis 06/30/2024 Pulmonary embolism ([facility] V24, [facility] V28) Pulmonary nodules 06/30/2024 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[facility] V24, [facility] V28) Cancer Staging:Pathologic:Stage IIIB(pT2b, pN1, cM0) [...] History Medical History Date Comments Breast cancer ([facility] V24, [facility] V28) Clotting disorder ([facility] V24) Family History Medical History Relation Name [...] patient's age to complete this topic Insurance [facility] [place] [address] MEDICAID [place] Care Teams Senior Geotechnical Engineer Relationship Specialty Start Date End Date Adria Rubio MD [address] [place] [id number] PCP - General Internal Medicine 08/04/24
== END 2025-02-02 14:32 | disposition home or self-care (01) ==
LOC: HO.HMCC 13:42
PROVIDERS: PCP Internal Medicine; Visit Provider Internal Medicine
DX: C22.1 Intrahepatic bile duct carcinoma (principal); D64.9 Anemia, unspecified; I82.409 Acute embolism and thrombosis of unspecified deep veins of unspecified lower extremity; R06.02 Shortness of breath; R62.7 Adult failure to thrive; Z09 Encounter for follow-up examination after completed treatment for conditions other than malignant neoplasm; Z91.81 History of falling; R10.13 Epigastric pain; R14.0 Abdominal distension (gaseous)

== ENCOUNTER 2025-02-02 13:41 | Outpatient (REF) | payer OTHER, SELFPAY ==
[2025-02-02 16:17] LABS: Basophils Percent Auto 0.3 % (0-2); Eosinophils Percent Auto 0.3 % (0-4); Lymphocytes Absolute Auto 1.9 X10*3/uL (1.2-4.9); Lymphocytes Percent Auto 12.8 % (20-40); MANUAL DIFF FLAG SCAN; Mean Corpuscular HGB Conc 33.5 g/dl (31.0-35.0); Mean Corpuscular Hemoglobin 31.1 pg (27.0-33.0); Mean Corpuscular Volume 92.6 fL (80.0-98.0); Mean Platelet Volume 12.9 fL (9.4-12.3); Monocytes Absolute Auto 1.5 X10*3/uL (0.1-1.2); Monocytes Percent Auto 10.2 % (2-11); NRBC Pct Auto 0.5 /100WBC (0.0-0.2); Neutrophils Absolute Auto 11.1 x10*3/uL (2.0-8.3); Neutrophils Percent Auto 74.4 % (45-73); PLT CLUMP 1; Red Cell Distribution Width 16.6 % (11.0-16.0); SCAN SMEAR FLAG 1
[2025-02-02 16:46] LABS: Alanine Aminotransferase 68 U/L (0-31); Albumin Level 2.8 g/dL (3.5-5.0); Alkaline Phosphatase 174 U/L (39-117); Anion Gap 10 (12-20); Aspartate Amino Transferase 127 U/L (5-31); Bilirubin Total 0.4 mg/dL (0.0-1.0); Blood Urea Nitrogen 21 mg/dL (9-16); Calcium 7.8 mg/dL (8.4-10.2); Carbon Dioxide 25 mmol/L (22-29); Chloride 100 mmol/L (96-108); Estimated Glomerular Filt Rate > 60; Glucose Random 143 mg/dL (60-115); Potassium 3.9 mmol/L (3.3-5.1); Sodium 131 mmol/L (135-145); Total Protein 5.6 g/dL (6.5-8.0)
[2025-02-02 16:52] LABS: Hematocrit 17.6 % (37.0-47.0); Hemoglobin 5.9 g/dl (12.0-16.0); White Blood Count 14.9 X10*3/uL (4.8-10.8)
[2025-02-02 16:53] LABS: Platelet Count 51 X10*3/uL (160-400); SLIDE REVIEW VERIFIED
== END 2025-02-02 13:42 | disposition home or self-care (01) ==
LOC: HO.HMGCLDS 13:41
PROVIDERS: PCP Internal Medicine; Visit Provider Internal Medicine
DX: Z09 Encounter for follow-up examination after completed treatment for conditions other than malignant neoplasm (principal); I26.99 Other pulmonary embolism without acute cor pulmonale; D64.9 Anemia, unspecified; R06.02 Shortness of breath; C22.1 Intrahepatic bile duct carcinoma; R62.7 Adult failure to thrive; I82.409 Acute embolism and thrombosis of unspecified deep veins of unspecified lower extremity; R10.13 Epigastric pain; R14.0 Abdominal distension (gaseous); Z79.01 Long term (current) use of anticoagulants; Z91.81 History of falling; Z95.828 Presence of other vascular implants and grafts
CPT/HCPCS: 36415; 80053; 85025; 96127; 99212

== ENCOUNTER 2025-02-02 17:45 | Inpatient (IN) | payer OTHER, SELFPAY ==
--- NOTE | ~2025-02-02 | XR_ITS ---
CLINICAL HISTORY: SOB 1 view chest x-ray Comparison: CR/SR - XR CHEST 1V - 01/28/25 12:53 EDT Findings: Two films were obtained. The right hemidiaphragm remains elevated. There are patchy opacities in the bilateral lower lobes. No pneumothorax or large pleural effusion. Cardiomediastinal silhouette is accentuated by portable technique and suboptimal inspiratory effort. No overt CHF. No acute fracture. IMPRESSION: 1. Hypoventilation. 2. Bilateral lower lobe atelectasis and/or infiltrates, left greater than right. This document has been electronically signed by: eHnny Call DO on 02/05/2025 13:10:26
[2025-02-02 17:57] VITALS: BP 132/65; BP 144/50; PULSE 105; RESP 16; TEMP 36.9; O2SAT 100; BMI 30.2
--- NOTE | 2025-02-02 18:05 | ECG_ITS ---
Test Reason : SHORTNESS OF BREATH Blood Pressure : */* mmHG Vent. Rate : 97 BPM Atrial Rate : 97 BPM P-R Int : 160 ms QRS Dur : 68 ms QT Int : 342 ms P-R-T Axes : 18 -18 2 degrees QTcB Int : 434 ms Normal sinus rhythm Minimal voltage criteria for LVH, may be normal variant ( R in aVL ) Borderline ECG When compared with ECG of 25-Jan-2025 17:23, Criteria for Septal infarct are no longer Present Referred By: Generic ED Physician Electronically Signed By: RUSSELL SOLIZ
[2025-02-02 18:09] VITALS: BP 144/50; PULSE 105; RESP 16; TEMP 36.9; O2SAT 100
--- NOTE | 2025-02-02 18:15 | PC.NURSE ---
Pt to ED via EMS for SOB/ Pt also states PCP called and advised pt to go ED for low hgb. A/O x 4, calm and cooperative. Pt reports SOB is ongoing, able to speak in full sentences. O2 100% on RA. Respirations even and unlabored. Reports generalized pain 10/10. EKG and labs pending. #20 IV in L AC.
[2025-02-02 19:12] LABS: Basophils Percent Auto 0.2 % (0-2); Eosinophils Percent Auto 0.2 % (0-4); Imm Gran Abs Auto 0.24 X10*3/uL (0.00-0.03); Imm Gran Pct Auto 1.9 % (0.0-0.4); Lymphocytes Absolute Auto 1.6 X10*3/uL (1.2-4.9); MANUAL DIFF FLAG SCAN; Mean Corpuscular HGB Conc 34.2 g/dl (31.0-35.0); Mean Corpuscular Hemoglobin 31.7 pg (27.0-33.0); Mean Corpuscular Volume 92.5 fL (80.0-98.0); Monocytes Absolute Auto 1.3 X10*3/uL (0.1-1.2); Monocytes Percent Auto 10.1 % (2-11); NRBC Pct Auto 0.5 /100WBC (0.0-0.2); Neutrophils Absolute Auto 9.3 x10*3/uL (2.0-8.3); Neutrophils Percent Auto 74.6 % (45-73); PLT CLUMP 1; Red Blood Count 1.61 X10*6/uL (4.20-5.50); Red Cell Distribution Width 17.1 % (11.0-16.0); SCAN SMEAR FLAG 1
--- NOTE | 2025-02-02 19:12 | PC.NURSE ---
assumed care of pt. Blood drawn per orders, respirations even and unlabored. pt advised provider will be in shortly. VSS
[2025-02-02 19:14] LABS: Hemoglobin 5.1 g/dl (12.0-16.0)
[2025-02-02 19:15] LABS: Hematocrit 14.9 % (37.0-47.0)
[2025-02-02 19:16] LABS: White Blood Count 12.5 X10*3/uL (4.8-10.8)
--- NOTE | 2025-02-02 19:19 | ED.SOB ---
HPI - SOB/Dyspnea General Chief Complaint: Dyspnea Stated Complaint: WEAKNESS, SOB, PALE SKIN, HX OF LIVER CA PER EMS Time Seen by Provider: 02/02/25 19:15 Source: patient Limitations: no limitations History of Present Illness ED Provider: Dr. 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 Patient was admitted from 01/25/2025 until 01/31/2025 for treatment of acute on chronic blood loss secondary to an upper GI bleed Gastric Annular Vascular Ectasia (GAVE) and acute on chronic thrombocytopenia secondary to GI bleed. Patient was discharged 2 days prior and now returns to the emergency department with shortness of breath and dyspnea on exertion patient states that she did have 1 episode of vomiting blood yesterday but she describes it as a small amount. She states she has had persistent dark stools since being discharged from the hospital. Patient states she has been feeling bloated in his not been able to eat or drink. Related Data Home Medications ?Medication ?Instructions ?Recorded ?Confirmed multivitamin-iron sulfate 15 1 tab PO DAILY 12/30/24 02/02/25 mg-folic acid 400 mcg tablet (Tab-A-Marissa Multivitamin w-iron) clotrimazole-betamethasone 1 1 appl topical DAILY 01/25/25 02/02/25 %-0.05 % topical cream Previous Rx's ?Medication ?Instructions ?Recorded bath stole #1 ea 01/17/21 compression stockings #1 ea 01/17/21 cholecalciferol (vitamin D3) 25 25 mcg PO DAILY #90 tabs 10/12/24 mcg (1,000 unit) tablet ondansetron 4 mg disintegrating 4 mg PO Q8H PRN nausea and 01/02/25 tablet vomiting #30 tabs exemestane 25 mg tablet (Aromasin) 25 mg PO DAILY #30 tabs 01/03/25 ferrous sulfate 324 mg (65 mg 324 mg PO BID #180 tabs 01/31/25 iron) tablet,delayed release pantoprazole 40 mg tablet,delayed 40 mg PO BID #180 tabs 01/31/25 release sucralfate 1 gram tablet 1 g PO BIDAC #180 tabs 01/31/25 simethicone 125 mg chewable tablet 125 mg PO BID-QID PRN abdominal 02/02/25 (Gas Relief (simethicone)) distention 10 days #30 tabs walker with seat #1 ea 02/02/25 Allergies Allergy/AdvReac Type Severity Reaction Status Date / Time Penicillins [PENICILLINS] Allergy Severe ANAPHYLAXIS, Verified 02/02/25 18:03 swelling streptomycin [STREPTOMYCIN] Allergy Severe ANAPHYLAXIS Verified 02/02/25 18:03 PMFSH Past Medical History Medical History Metastatic disease Metastatic cancer to liver Pulmonary embolism Metastasis from gallbladder cancer Pulmonary embolism Pulmonary nodules Pneumonitis Chest pain Chronic cough Vaginal yeast infection Breast lump on right side at 5 o'clock position History of colon polyps Breast cancer, left (~10/2016) Spondylosis Back pain Neuropathy Surgical History Hx of cholecystectomy History of esophagogastroduodenoscopy (EGD) History of lumpectomy of right breast (06/26/22) Hx of vein stripping Hx of colonoscopy (~10/2018) S/P breast lumpectomy Family History Family History Mother No problems noted. Father No problems noted. Other No family history of cancer Social History Social History Household Members: None Housing: Apartment Are you a primary healthcare corporate account director to a significant other at home: No Do you presently have visiting nurse or other home services: No Unable to assess alcohol history related to: Unknown Alcohol intake: never Comment: med with oxycodone 5 mg po in PACU Patient Tobacco Use Status: Never used Tobacco Smoked in Last 30 Days: No e-Cigarette/Vaping Use: Never Used Second Hand Smoke Exposure: No Use of substances other than those prescribed or required for medical reasons: No Advance Directives: No Advance Directives Information Provided: Yes service: No Current occupational status: disabled Current occupation: rt handed Cognitive needs: No Hearing needs: No Vision needs: Yes Physical Exam Vital Signs: Vital Signs: Last Vital Signs Temp 97.6 F 02/02/25 21:38 Pulse 103 H 02/02/25 21:38 Resp 20 02/02/25 21:38 BP 128/55 L 02/02/25 21:38 Pulse Ox 100 02/02/25 20:00 O2 Del Method Room Air 02/02/25 20:00 BMI result Body Mass Index 30.2 Vital signs were normal Exam: General: Awake, alert in no distress Head: Normocephalic, atraumatic EENT: PERRL, Lids normal, sclera normal, conjunctiva normal, nose normal , ears normal, throat without erythema or exudates Neck: Supple, no adenopathy Lung: breath sounds symmetric, no wheezing, rales or rhonchi Chest: symmetric movement, nontender Heart: regular rate and rhythm, normal S1, S2 no murmurs or rubs Abdomen: soft, non-tender, nondistended, normal bowel sounds Back: no vertebral tenderness, no CVAT Extremities: no deformities, moves all extremities symmetrically Neuro: Awake, alert, oriented, normal speech, cranial nerves intact, moves all extremities symmetrically Psych: Pleasant, cooperative Medical Decision Making Medical Decision Making MDM Narrative: 64-year-old female with past medical history breast cancer diagnosed 2015 with Mets to the lung s/p lumpectomy, radiation and chemo current negative mammogram, 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 Patient was admitted from 01/25/2025 until 01/31/2025 for treatment of acute on chronic blood loss secondary to an upper GI bleed Gastric Annular Vascular Ectasia (GAVE) and acute on chronic thrombocytopenia secondary to GI bleed. Patient was discharged 2 days prior and now returns to the emergency department with shortness of breath and dyspnea on exertion patient states that she did have 1 episode of vomiting blood yesterday but she describes it as a small amount. She states she has had persistent dark stools since being discharged from the hospital. Patient states she has been feeling bloated in his not been able to eat or drink. Vital signs were normal. Physical examination was unremarkabl Differential diagnosis: Includes but is not limited to: Acute blood loss, anemia, electrolyte abnormalities Course: 21:41 My independent interpretation patient's laboratory evaluation is as follows: WBC elevated 12,500. Normocytic anemia with an H&H of 5.1 and 14.9. This is compared to an H&H of 8.1 and 22.4 on 01/31/2025 (2 days prior) he has a 2-3 unit drop. Sodium low 133. BUN elevated 19 with a normal creatinine 0.67. Glucose elevated 121. Calcium low 7.4. AST, ALT and alk-phos were elevated at 115. Given the significant drop in the patient's H&H in 2 days, the patient most likely has continued upper GI bleed. I will discuss further treatment with the covering folder stitcher operator, Dr. Taylor I did order transfusion of 3 units of packed RBCs. The patient will need to be admitted so that we can monitor her H&H further evaluation. 22:00 I did discuss admission bring hospitalist, Dr. Medeiros. After this discussion, I did order 1 unit of FFP and 1 unit of pheresed platelets. 22:19 I did discuss the patient's presentation with the covering folder stitcher operator, Dr. Taylor. He agreed with the transfusion of packed RBCs, FFP and platelets. He recommended IV Protonix and NPO after midnight for possible endoscopy tomorrow. Admission/Observation Consideration of admission/observation: Escalation of care including admission/observation considered (Yes) Consult Healthcare Provider Management of the patient was discussed with: Hospitalist Lab Data MDM Lab Attestation statement: I reviewed the patient's lab results. 02/02/25 19:02 02/02/25 19:02 Labs: Lab Results 02/02/25 02/02/25 Range/Units 19:02 20:07 WBC 12.5 H (4.8-10.8) X10*3/uL RBC 1.61 L (4.20-5.50) X10*6/uL Hgb 5.1 L* (12.0-16.0) g/dl Hct 14.9 L* (37.0-47.0) % MCV 92.5 (80.0-98.0) fL MCH 31.7 (27.0-33.0) pg MCHC 34.2 (31.0-35.0) g/dl RDW 17.1 H (11.0-16.0) % Plt Count 38 L D (160-400) X10*3/uL MPV 12.4 H (9.4-12.3) fL Immature Gran % (Auto) 1.9 H (0.0-0.4) % Neut % (Auto) 74.6 H (45-73) % Lymph % (Auto) 13.0 L (20-40) % [place] % (Auto) 10.1 (2-11) % Eos % (Auto) 0.2 (0-4) % Baso % (Auto) 0.2 (0-2) % Lymph # (Auto) 1.6 (1.2-4.9) X10*3/uL [place] # (Auto) 1.3 H (0.1-1.2) X10*3/uL Eos # (Auto) 0.0 (0.0-0.4) X10*3/uL Baso # (Auto) 0.0 (0.0-0.2) X10*3/uL Abs Immat Gran (auto) 0.24 H (0.00-0.03) X10*3/uL Absolute Neuts (auto) 9.3 H (2.0-8.3) x10*3/uL Absolute Nucleated RBC 0.060 H (0.0-0.012) X10*3/uL Nucleated RBC % (auto) 0.5 H (0.0-0.2) /100WBC Hold Blue Top SEE NOTE Sodium 133 L (135-145) mmol/L Potassium 3.6 (3.3-5.1) mmol/L Chloride 102 (96-108) mmol/L Carbon Dioxide 24 (22-29) mmol/L Anion Gap 11 L (12-20) BUN 19 H (9-16) mg/dL Creatinine 0.67 (0.5-1.4) mg/dL Estim Creat Clear Calc 81.4 Estimated GFR > 60 Random Glucose 121 H (60-115) mg/dL Calcium 7.4 L (8.4-10.2) mg/dL Total Bilirubin 0.4 (0.0-1.0) mg/dL AST 115 H (5-31) U/L ALT 59 H (0-31) U/L Alkaline Phosphatase 153 H (39-117) U/L Troponin I High Sens 15.6 (<3.5-17.0) ng/L B-Natriuretic Peptide 108 H (<100) pg/mL Total Protein 5.1 L (6.5-8.0) g/dL Albumin 2.5 L (3.5-5.0) g/dL Blood Type B Positive Antibody Screen NEGATIVE Crossmatch See Detail Independent Interpretation I performed an independent interpretation of an: EKG Interpretation: My independent interpretation patient's 12 EKG 02/02/2025 at 18:11 hours is as follows: Normal sinus rhythm rate of 97, normal [place] interval, QRS duration QTC interval, no ST segment elevation, no ST segment depression, no significant T-wave abnormalities, no PACs, no PVCs Chronic Conditions Patient?s care impacted by: Other (Gallbladder cancer metastatic to the liver) Critical Care Time Critical Care Time Critical Care Time: Yes Total Critical Care Time: 75 Attestation: Critical Care: The patient was critically ill with a high probability of imminent or life threatening deterioration. I spent greater than 30 minutes of discontinuous time evaluating the patient,delivering critical care at the bedside, discussing and evaluating pertinent data with consultants. Critical care time does not include time spent performing separately billable procedures or teaching. Total time spent performing critical care was 75 minutes. Discharge Plan Discharge Patient Disposition: Admitted As Inpatient Prescriptions: No Action cholecalciferol (vitamin D3) 25 mcg (1,000 unit) tablet 25 mcg PO DAILY Qty: 90 3RF exemestane [Aromasin] 25 mg Tablet 25 mg PO DAILY Qty: 30 3RF Rx Instructions: must administer after a meal Tab-A-Marissa Multivitamin w-iron 15 mg iron- 400 mcg tablet 1 tab PO DAILY ondansetron 4 mg tablet,disintegrating 4 mg PO Q8H PRN (Reason: nausea and vomiting) Qty: 30 0RF clotrimazole-betamethasone 1-0.05 % cream 1 appl topical DAILY sucralfate 1 gram Tablet 1 g PO BIDAC Qty: 180 0RF pantoprazole 40 mg tablet,delayed release (DR/EC) 40 mg PO BID Qty: 180 0RF ferrous sulfate 324 mg (65 mg iron) tablet,delayed release (DR/EC) 324 mg PO BID Qty: 180 0RF (DME) bath stole See Rx Instructions .Route .MEDSUPPLY Qty: 1 0RF Rx Instructions: As directed (DME) compression stockings medium See Rx Instructions .Route .MEDSUPPLY Qty: 1 0RF Rx Instructions: As directed simethicone [Gas Relief (simethicone)] 125 mg tablet,chewable 125 mg PO BID-QID PRN (Reason: abdominal distention) 10 Days Qty: 30 0RF (DME) walker with seat See Rx Instructions .Route .MEDSUPPLY Qty: 1 0RF Rx Instructions: As directed Print Language: Mongolian
[2025-02-02 19:27] LABS: Mean Platelet Volume 12.4 fL (9.4-12.3); Platelet Count 38 X10*3/uL (160-400)
[2025-02-02 19:29] LABS: Alanine Aminotransferase 59 U/L (0-31); Albumin Level 2.5 g/dL (3.5-5.0); Alkaline Phosphatase 153 U/L (39-117); Anion Gap 11 (12-20); Aspartate Amino Transferase 115 U/L (5-31); Bilirubin Total 0.4 mg/dL (0.0-1.0); Blood Urea Nitrogen 19 mg/dL (9-16); Calcium 7.4 mg/dL (8.4-10.2); Carbon Dioxide 24 mmol/L (22-29); Chloride 102 mmol/L (96-108); Creatinine Clr Calc Pharmacy 81.4; Estimated Glomerular Filt Rate > 60; Glucose Random 121 mg/dL (60-115); Potassium 3.6 mmol/L (3.3-5.1); Sodium 133 mmol/L (135-145); Total Protein 5.1 g/dL (6.5-8.0)
[2025-02-02 19:33] LABS: B Type Natriuretic Peptide 108 pg/mL (<100)
[2025-02-02 19:36] LABS: Troponin-I High Sensitivity 15.6 ng/L (<3.5-17.0)
[2025-02-02 20:00] VITALS: BP 100/48; PULSE 100; RESP 24; TEMP 36.3; O2SAT 100
--- NOTE | 2025-02-02 20:10 | PC.NURSE ---
Yamile MELO at bed side placed ultrasound guided 18g IV in R bicep. Pt tolerated well.
[2025-02-02 21:38] VITALS: BP 128/55; PULSE 103; RESP 20; TEMP 36.4
[2025-02-02 22:00] VITALS: BP 115/44; PULSE 98; RESP 18; TEMP 36.8
[2025-02-02] MEDS: Dextrose 5 % and 0.45 % NaCl 1,000 ML 100 ML IVCONT (22:41)
[2025-02-03] VITALS (23 sets, daily range): BP systolic 106–182; BP diastolic 46–88; PULSE 80–102; RESP 12–28; TEMP 36.4–37.1; O2SAT 94–100; BMI 31.9
--- NOTE | 2025-02-03 00:46 | PC.NURSE ---
pt first blood transfusion completed at this time, pt tolerated well. offers no complaints. vss
--- NOTE | 2025-02-03 01:14 | PC.NURSE ---
pt placed in hospital bed for comfort, platelets administering at this time, pt tolerating well, no transfusion reactions noted.
--- NOTE | 2025-02-03 03:31 | PM.IMHP ---
History of Present Illness Date of Service: 02/03/25 Chief Complaint: Generalized weakness 64-year-old female with a past medical history of metastatic breast cancer status post chemo/radiotherapy/surgery, metastatic gallbladder cancer-completed chemotherapy; history of partial hepatectomy, cholecystectomy, lumpectomy; CAD, arthritis, neuropathy, GERD, pulmonary embolism-not on anticoagulation secondary to GI bleed; recent admission to the hospital last week of December for acute anemia secondary to GI blood loss-diagnosed gastric antral vascular ectasia; acute on chronic thrombocytopenia; received blood transfusions and subsequently discharged home on 01/31/2025; presented to the hospital today with a chief complaint of generalized weakness. Patient reports that over the past 2 days she has been having generalized weakness and tiredness. Has been having shortness of breath and dyspnea on exertion. Has decreased appetite. Reports he feels generally unwell. Denies any fevers and chills. Denies any cough or sputum production. Denies any urinary symptoms. Denies any gross signs of bleeding. Review of all other systems is negative except mentioned above ER course: Per ER physician, patient's exam was grossly nonfocal; benign abdominal examination; on labs noted to have hemoglobin of 5.9 compared to 8.1 at the time of discharge. Platelets noted to be 38. Patient being ordered for 3 units of PRBC, 1 unit of platelets, 1 unit of FFP. [facility] Medical History Metastatic disease Metastatic cancer to liver Pulmonary embolism Metastasis from gallbladder cancer Pulmonary embolism Pulmonary nodules Pneumonitis Chest pain Chronic cough Vaginal yeast infection Breast lump on right side at 5 o'clock position History of colon polyps Breast cancer, left (~10/2016) Spondylosis Back pain Neuropathy Family History Mother No problems noted. Father No problems noted. Other No family history of cancer Surgical History Hx of cholecystectomy History of esophagogastroduodenoscopy (EGD) History of lumpectomy of right breast (06/26/22) Hx of vein stripping Hx of colonoscopy (~10/2018) S/P breast lumpectomy Social History Household Members: None Housing: Apartment Are you a primary clinical manager home care to a significant other at home: No Do you presently have visiting nurse or other home services: No Unable to assess alcohol history related to: Unknown Alcohol intake: never Comment: med with oxycodone 5 mg po in PACU Patient Tobacco Use Status: Never used Tobacco Smoked in Last 30 Days: No e-Cigarette/Vaping Use: Never Used Second Hand Smoke Exposure: No Use of substances other than those prescribed or required for medical reasons: No Advance Directives: No Advance Directives Information Provided: Yes Nutrition Risks: No Nutritional Risk service: No Current occupational status: disabled Current occupation: rt handed Cognitive needs: No Hearing needs: No Vision needs: Yes Meds Allergies Allergy/AdvReac Type Severity Reaction Status Date / Time Penicillins [PENICILLINS] Allergy Severe ANAPHYLAXIS, Verified 02/02/25 18:03 swelling streptomycin [STREPTOMYCIN] Allergy Severe ANAPHYLAXIS Verified 02/02/25 18:03 Active Medications: Current Medications Acetaminophen (Acetaminophen 325 Mg Tablet) 650 mg PO Q6H PRN PRN Reason: Pain, Mild 1-3,fever,headache Calcium Carbonate (Calcium Carbonate 750 Mg Tab.Chew) 750 mg PO Q4H PRN PRN Reason: Heartburn Dextrose/Sodium Chloride (D51/2ns) 1,000 mls @ 100 mls/hr IVCONT .Q10H [facility] Last Admin: 02/02/25 22:41 Dose: 100 mls/hr Magnesium Hydroxide (Milk Of Magnesia 30 Ml Oral.Susp) 30 ml PO DAILY PRN PRN Reason: Constipation Melatonin (Melatonin 3 Mg Tablet) 6 mg PO BEDTIME PRN PRN Reason: Insomnia Pantoprazole Sodium (Pantoprazole Sodium 40 Mg/10 Ml Vial) 40 mg IVPUSH DAILY@0630 [facility] Sodium Chloride (0.9 % Sodium Chloride Flush 3 Ml Syringe) 3 ml IVFLUSH QSHIFT [facility] Last Admin: 02/03/25 01:14 Dose: Not Given Home Medications ?Medication ?Instructions ?Recorded ?Confirmed ?Last Taken ?Type multivitamin-iron sulfate 15 1 tab PO DAILY 12/30/24 02/02/25 01/24/25 History mg-folic acid 400 mcg tablet (Tab-A-Marissa Multivitamin w-iron) clotrimazole-betamethasone 1 1 appl topical DAILY 05/02/02/25 01/24/25 History %-0.05 % topical cream Physical Exam Vital Signs and Narrative: Vital Signs: Last Vital Signs Temp 98.1 F 02/03/25 03:27 Pulse 95 02/03/25 03:27 Resp 20 02/03/25 03:27 BP 131/53 L 02/03/25 03:27 Pulse Ox 100 02/03/25 00:05 O2 Del Method Room Air 02/03/25 00:05 BMI result Body Mass Index 30.2 Gen: Appears be in no acute distress HEENT: NCAT, Moist mucosa. Pulmonary: Vesicular breath sounds, fair air entry CVS: Normal S1-S2 Abdomen: BS+, Soft, Nontender Extremities: Warm well perfused Neuro: Alert and awake. Results Labs 02/02/25 19:02 02/02/25 19:02 Labs: Laboratory Results - last 24 hr 02/02/25 02/02/25 19:02 20:07 MCV 92.5 MCH 31.7 MCHC 34.2 RDW 17.1 H Plt Count 38 L D MPV 12.4 H Immature Gran % (Auto) 1.9 H Neut % (Auto) 74.6 H Lymph % (Auto) 13.0 L [place] % (Auto) 10.1 Eos % (Auto) 0.2 Baso % (Auto) 0.2 Lymph # (Auto) 1.6 [place] # (Auto) 1.3 H Eos # (Auto) 0.0 Baso # (Auto) 0.0 Abs Immat Gran (auto) 0.24 H Absolute Neuts (auto) 9.3 H Absolute Nucleated RBC 0.060 H Nucleated RBC % (auto) 0.5 H Hold Blue Top SEE NOTE Anion Gap 11 L Estim Creat Clear Calc 81.4 Estimated GFR > 60 Random Glucose 121 H Calcium 7.4 L Total Bilirubin 0.4 AST 115 H ALT 59 H Alkaline Phosphatase 153 H Troponin I High Sens 15.6 B-Natriuretic Peptide 108 H Total Protein 5.1 L Albumin 2.5 L Blood Type B Positive Antibody Screen NEGATIVE Crossmatch See Detail Assessment and Plan (1) Acute anemia: Status: Acute Plan 64-year-old female with a past medical history of metastatic breast cancer status post chemo/radiotherapy/surgery, metastatic gallbladder cancer-completed chemotherapy; history of partial hepatectomy, cholecystectomy, lumpectomy; CAD, arthritis, neuropathy, GERD, pulmonary embolism-not on anticoagulation secondary to GI bleed; recent admission to the hospital last week of December for acute anemia secondary to GI blood loss-diagnosed gastric antral vascular ectasia; acute on chronic thrombocytopenia; received blood transfusions and subsequently discharged home on 01/31/2025; presented to the hospital today with a chief complaint of generalized weakness. Noted acute on chronic anemia. Admitted for further management. Acute on chronic anemia: Patient during the last admission was diagnosed with gastric annular vascular ectasia. Patient received blood transfusion during the last admission-hemoglobin was 8.1 at the time of discharge. Hemoglobin presentation today is 5.9 Patient denies any gross signs of bleeding. Platelets on presentation were noted to be 38 slightly better than prior values. Patient being ordered for 3 units of PRBC, 1 unit of platelets, 1 unit of FFP. Hematology oncology consult GI consult Gentle IV fluids NPO IV PPI HX pulmonary embolism: Patient not on anticoagulation secondary to GI bleed. HX cholangiocarcinoma: Patient has liver mother says. Follows with [facility] [place] [facility] and [facility]. DVT prophylaxis: SCD boots Code status: Full code Quality Stroke Does the patient have a stroke diagnosis?: No VTE Prior VTE?: No VTE Risk Level:: Medical - moderate - high VTE Device Contraindication: N/A - Device Ordered VTE Drug Contraindication: Treatment Not Indicated
--- NOTE | 2025-02-03 03:57 | PC.NURSE ---
platelets completed at this time. pt tolerated well. unit of plasma administering at this time, lung sounds continue to be clear and pt offers no complaints. no signs of transfusion reaction at this time. vss.
[2025-02-03 05:34] LABS: MANUAL DIFF FLAG NO
[2025-02-03] MEDS: Pantoprazole Sodium 40 MG/10 ML VIAL IVPUSH ×2 (05:37→15:43)
[2025-02-03 05:53] LABS: Basophils Percent Auto 0.2 % (0-2); Eosinophils Absolute Auto 0.1 X10*3/uL (0.0-0.4); Eosinophils Percent Auto 0.5 % (0-4); Imm Gran Pct Auto 1.6 % (0.0-0.4); Lymphocytes Absolute Auto 1.3 X10*3/uL (1.2-4.9); Lymphocytes Percent Auto 10.4 % (20-40); Mean Corpuscular HGB Conc 35.2 g/dl (31.0-35.0); Mean Corpuscular Hemoglobin 33.9 pg (27.0-33.0); Mean Corpuscular Volume 96.3 fL (80.0-98.0); Mean Platelet Volume 11.7 fL (9.4-12.3); Monocytes Absolute Auto 1.4 X10*3/uL (0.1-1.2); Monocytes Percent Auto 11.1 % (2-11); NRBC Pct Auto 0.2 /100WBC (0.0-0.2); Neutrophils Absolute Auto 9.8 x10*3/uL (2.0-8.3); Neutrophils Percent Auto 76.2 % (45-73); Red Blood Count 1.89 X10*6/uL (4.20-5.50); Red Cell Distribution Width 17.5 % (11.0-16.0); White Blood Count 12.8 X10*3/uL (4.8-10.8)
[2025-02-03 05:54] LABS: Platelet Count 68 X10*3/uL (160-400)
[2025-02-03 05:55] LABS: Hemoglobin 6.4 g/dl (12.0-16.0)
[2025-02-03 05:56] LABS: Hematocrit 18.2 % (37.0-47.0)
[2025-02-03 06:01] LABS: Alanine Aminotransferase 52 U/L (0-31); Albumin Level 2.6 g/dL (3.5-5.0); Alkaline Phosphatase 145 U/L (39-117); Anion Gap 11 (12-20); Aspartate Amino Transferase 110 U/L (5-31); Bilirubin Total 0.9 mg/dL (0.0-1.0); Blood Urea Nitrogen 14 mg/dL (9-16); Calcium 7.5 mg/dL (8.4-10.2); Carbon Dioxide 24 mmol/L (22-29); Chloride 102 mmol/L (96-108); Creatinine Clr Calc Pharmacy 101.1; Estimated Glomerular Filt Rate > 60; Glucose Random 132 mg/dL (60-115); Potassium 3.2 mmol/L (3.3-5.1); Sodium 134 mmol/L (135-145)
[2025-02-03] MEDS: Dextrose 5 % and 0.45 % NaCl 1,000 ML 100 ML IVCONT ×2 (08:35→19:54)
--- NOTE | 2025-02-03 08:48 | PHA.MEDREC ---
Pharmacy Consult ? Medication Reconciliation Pharmacy has completed the medication reconciliation. Patient was recently discharged on 01/31/25. Used discharge packet and also spoke to patient to confirm medication list.
--- NOTE | 2025-02-03 10:06 | P.CONAN_ITS ---
[facility] Active Problems Active Problems: All Active Problems (Updated 02/02/25 @ 21:54 by Kavon Briggs MD) Acute anemia (Acute) Acute gastrointestinal bleeding (Acute) Abdominal bloating (Acute) Epigastric pain (Acute) Risk for falls (Acute) Failure to thrive in adult (Acute) Shortness of breath (Acute) Physical deconditioning (Acute) Hematemesis of fresh blood (Acute) Pulmonary embolism (Acute) Severe anemia (Acute) Melena (Acute) Acute upper GI bleed (Acute) GIB (gastrointestinal bleeding) (Acute) Chemotherapy-induced neuropathy (Acute) Recurrent pulmonary embolism (Acute) Hx of usp use of blood thinners (Acute) Tinea corporis (Acute) Chronic back pain (Acute) Metastatic cholangiocarcinoma (Chronic) Hospital discharge follow-up (Acute) Dysuria (Acute) Fatigue (Acute) Palpitations (Acute) DVT (deep venous thrombosis) (Acute) Cardiac arrhythmia (Acute) Cataract (Acute) Pre-op evaluation (Acute) 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Acute) Generalized osteoarthritis (Acute) Generalized postprandial abdominal pain (Acute) 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Acute) Urine incontinence (Acute) Radiculitis of left cervical region (Acute) Polyarthralgia (Acute) Muscle cramps (Acute) Neck pain (Acute) Shoulder pain, right (Acute) Pneumonia (Acute) Cough (Acute) Renal cyst (Acute) Pleurisy (Acute) Vaginal itching (Acute) Blood in urine (Acute) Upper abdominal pain (Acute) Patellofemoral arthritis of right knee (Acute) Encounter for annual routine gynecological examination (Acute) Strain of cervical portion of both trapezius muscles (Acute) Myofascial pain (Acute) Spondylosis of cervical region without myelopathy or radiculopathy (Acute) Cervical radiculopathy (Acute) Osteoarthritis of right knee (Acute) Knee pain, right (Acute) Osteoarthritis of multiple joints (Acute) Encounter for annual routine gynecological examination (Acute) Routine gynecological examination (Acute) Encounter for general adult medical examination with abnormal findings (Acute) Swelling of toe of both feet (Acute) Arthrosis (Acute) Serous otitis media (Acute) Renal cyst, right (Acute) Mid back pain on right side (Acute) Obesity (BMI 30.0-34.9) (Acute) Peripheral vascular disease (Acute) Dyspepsia (Acute) Breast cancer (Acute) Asymptomatic gallstones (Acute) Chronic diarrhea (Acute) Abdominal pain (Acute) Osteopenia (Acute) Osteoarthritis (Acute) Hyperlipidemia (Acute) Pulmonary nodules (Acute) Breast cancer, left (Acute ~10/2016) Pneumonitis (Acute) Chest pain (Acute) Chronic cough (Acute) History of colon polyps (Acute) Back pain (Acute) Neuropathy (Acute) Past Medical History Medical History Metastatic disease Metastatic cancer to liver Pulmonary embolism 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 Father No problems noted. Other No family history of cancer Family history of problems with anesthesia: No Surgical History Surgical History Hx of cholecystectomy History of esophagogastroduodenoscopy (EGD) History of lumpectomy of right breast (06/26/22) Hx of vein stripping Hx of colonoscopy (~10/2018) S/P breast lumpectomy History of Problems with Anesthesia: No Social History Social History Household Members: Children Household Members Other:: currently lives with her son Housing: House Are you a primary home care chaplain to a significant other at home: No Do you presently have visiting nurse or other home services: Yes Unable to assess alcohol history related to: Unknown Alcohol intake: never Comment: med with oxycodone 5 mg po in PACU Patient Tobacco Use Status: Never used Tobacco Smoked in Last 30 Days: No e-Cigarette/Vaping Use: Never Used Second Hand Smoke Exposure: No Use of substances other than those prescribed or required for medical reasons: No Have you been hit, kicked, punched, or otherwise hurt by someone within the past year? If so, by whom?: No Are you DNR?: No Advance Directives: No Advance Directives Information Provided: Yes Advance Directives on File: No Do you have a plan to hurt others: No Plan Recently lost weight without trying: No Eating poorly because of decreased appetite: Yes Nutrition Risks: No Nutritional Risk Patient : No : No Poor oral hygiene: No service: No Current occupational status: disabled Current occupation: rt handed Cognitive needs: No Hearing needs: No Vision needs: Yes Meds Allergies Allergy/AdvReac Type Severity Reaction Status Date / Time Penicillins [PENICILLINS] Allergy Severe ANAPHYLAXIS, Verified 02/02/25 18:03 swelling streptomycin [STREPTOMYCIN] Allergy Severe ANAPHYLAXIS Verified 02/02/25 18:03 Active Medications: Current Medications Acetaminophen (Acetaminophen 325 Mg Tablet) 650 mg PO Q6H PRN PRN Reason: Pain, Mild 1-3,fever,headache Calcium Carbonate (Calcium Carbonate 750 Mg Tab.Chew) 750 mg PO Q4H PRN PRN Reason: Heartburn Dextrose/Sodium Chloride (D51/2ns) 1,000 mls @ 100 mls/hr IVCONT .Q10H [facility] Last Admin: 02/03/25 08:35 Dose: 100 mls/hr Magnesium Hydroxide (Milk Of Magnesia 30 Ml Oral.Susp) 30 ml PO DAILY PRN PRN Reason: Constipation Melatonin (Melatonin 3 Mg Tablet) 6 mg PO BEDTIME PRN PRN Reason: Insomnia Pantoprazole Sodium (Pantoprazole Sodium 40 Mg/10 Ml Vial) 40 mg IVPUSH DAILY@0630 [facility] Last Admin: 02/03/25 05:37 Dose: 40 mg Sodium Chloride (0.9 % Sodium Chloride Flush 3 Ml Syringe) 3 ml IVFLUSH QSHIFT [facility] Last Admin: 02/03/25 08:31 Dose: Not Given Home Medications ?Medication ?Instructions ?Recorded ?Confirmed ?Last Taken ?Type multivitamin-iron sulfate 15 1 tab PO DAILY 12/30/24 02/03/25 02/01/25 History mg-folic acid 400 mcg tablet (Tab-A-Marissa Multivitamin w-iron) clotrimazole-betamethasone 1 1 appl topical DAILY 01/25/25 02/03/25 02/01/25 History %-0.05 % topical cream sucralfate 1 gram tablet 1 g PO BIDAC 02/03/25 02/03/25 02/01/25 History Exam Height,Weight and Vital Signs: Height 5 ft 2 in Weight 79 kg Last Vital Signs Temp 97.8 F 02/03/25 08:59 Pulse 95 02/03/25 08:59 Resp 20 02/03/25 08:59 BP 139/63 02/03/25 08:59 Pulse Ox 100 02/03/25 08:10 O2 Del Method Room Air 02/03/25 08:10 Pertinent Lab Results Pertinent Lab Results: Laboratory Tests 02/02/25 02/02/25 02/03/25 19:02 20:07 05:22 WBC 12.5 H 12.8 H RBC 1.61 L 1.89 L Hgb 5.1 L* 6.4 L* D Hct 14.9 L* 18.2 L* D MCV 92.5 96.3 MCH 31.7 33.9 H MCHC 34.2 35.2 H RDW 17.1 H 17.5 H Plt Count 38 L D 68 L D MPV 12.4 H 11.7 Immature Gran % (Auto) 1.9 H 1.6 H Neut % (Auto) 74.6 H 76.2 H Lymph % (Auto) 13.0 L 10.4 L [place] % (Auto) 10.1 11.1 H Eos % (Auto) 0.2 0.5 Baso % (Auto) 0.2 0.2 Lymph # (Auto) 1.6 1.3 [place] # (Auto) 1.3 H 1.4 H Eos # (Auto) 0.0 0.1 Baso # (Auto) 0.0 0.0 Abs Immat Gran (auto) 0.24 H 0.20 H Absolute Neuts (auto) 9.3 H 9.8 H Absolute Nucleated RBC 0.060 H 0.030 H Nucleated RBC % (auto) 0.5 H 0.2 Hold Blue Top SEE NOTE Sodium 133 L 134 L Potassium 3.6 3.2 L Chloride 102 102 Carbon Dioxide 24 24 Anion Gap 11 L 11 L BUN 19 H 14 Creatinine 0.67 0.54 Estim Creat Clear Calc 81.4 101.1 Estimated GFR > 60 > 60 Random Glucose 121 H 132 H Calcium 7.4 L 7.5 L Total Bilirubin 0.4 0.9 AST 115 H 110 H ALT 59 H 52 H Alkaline Phosphatase 153 H 145 H Troponin I High Sens 15.6 B-Natriuretic Peptide 108 H Total Protein 5.1 L 5.0 L Albumin 2.5 L 2.6 L Blood Type B Positive Antibody Screen NEGATIVE Crossmatch See Detail Airway Mallampati Class: II Neck ROM: Full Loose/Missing/Broken Teeth: No Heart: RRR Lungs: CTA Assessment and Plan Assessment Anesthesia Assessment: Anesthesia Plan Discussed and Chart Reviewed Final Anesthetic Review Family History of Problems with Anesthesia: No History of Problems with Anesthesia: No NPO: Yes ASA Class: III Final Preanesthetic Review: Meds/Allgs Chart Reviewed, Consent Obtained/Reviewed and Anes Risks/Benef Reviewed Patient Risk: Intermediate Procedure Risk: Intermediate Anesthetic Plan Anesthetic Plan: MAC: Disposition: Standard PACU
--- NOTE | 2025-02-03 11:05 | MHC.CM.PN ---
Patient typically lives alone but has been staying with her Son/HCP/Mhommad @ [address] in [place], receiving [facility] from [facility]. Home/resume said services is the tentative plan and CM has initiated and will follow for dc planning. PCP is Dr. Adria Rubio and Son will transport to home at time of dc.
--- NOTE | 2025-02-03 11:22 | PM.GICN ---
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 Patient was admitted this time with generalized weakness and tiredness as well as feeling of trapped gas and nausea. She had noted SOB on exertion and poor appetite she denies rectal bleeding, or melena, no nose bleeds, or hematuria. she had EGd 1 week ago with APC for GAVE, and required plts and K centra as she had been on eliquis at the time, this is stopped and now has IVC filter This admission she had HGB of 6 g/dl and plst were 38. she was ordered for 3 units of PRBC, 1 unit of platelets, 1 unit of FFP. 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 Father No problems noted. Other No family history of cancer Surgical History Surgical History Hx of cholecystectomy History of esophagogastroduodenoscopy (EGD) History of lumpectomy of right breast (06/26/22) Hx of vein stripping Hx of colonoscopy (~10/2018) S/P breast lumpectomy Social History Social History Household Members: Children Household Members Other:: currently lives with her son Housing: House Are you a primary child care group leader to a significant other at home: No Do you presently have visiting nurse or other home services: Yes Unable to assess alcohol history related to: Unknown Alcohol intake: never Comment: med with oxycodone 5 mg po in PACU Patient Tobacco Use Status: Never used Tobacco Smoked in Last 30 Days: No e-Cigarette/Vaping Use: Never Used Second Hand Smoke Exposure: No Use of substances other than those prescribed or required for medical reasons: No Have you been hit, kicked, punched, or otherwise hurt by someone within the past year? If so, by whom?: No Are you DNR?: No Advance Directives: No Advance Directives Information Provided: Yes Advance Directives on File: No Do you have a plan to hurt others: No Plan Recently lost weight without trying: No Eating poorly because of decreased appetite: Yes Nutrition Risks: No Nutritional Risk Patient : No : No Poor oral hygiene: No service: No Current occupational status: disabled Current occupation: rt handed Cognitive needs: No Hearing needs: No Vision needs: Yes Meds Allergies Allergy/AdvReac Type Severity Reaction Status Date / Time Penicillins [PENICILLINS] Allergy Severe ANAPHYLAXIS, Verified 02/02/25 18:03 swelling streptomycin [STREPTOMYCIN] Allergy Severe ANAPHYLAXIS Verified 02/02/25 18:03 Active Medications: Current Medications Acetaminophen (Acetaminophen 325 Mg Tablet) 650 mg PO Q6H PRN PRN Reason: Pain, Mild 1-3,fever,headache Calcium Carbonate (Calcium Carbonate 750 Mg Tab.Chew) 750 mg PO Q4H PRN PRN Reason: Heartburn Dextrose/Sodium Chloride (D51/2ns) 1,000 mls @ 100 mls/hr IVCONT .Q10H [facility] Last Admin: 02/03/25 08:35 Dose: 100 mls/hr Magnesium Hydroxide (Milk Of Magnesia 30 Ml Oral.Susp) 30 ml PO DAILY PRN PRN Reason: Constipation Melatonin (Melatonin 3 Mg Tablet) 6 mg PO BEDTIME PRN PRN Reason: Insomnia Pantoprazole Sodium (Pantoprazole Sodium 40 Mg/10 Ml Vial) 40 mg IVPUSH DAILY@0630 [facility] Last Admin: 02/03/25 05:37 Dose: 40 mg Sodium Chloride (0.9 % Sodium Chloride Flush 3 Ml Syringe) 3 ml IVFLUSH QSHIFT [facility] Last Admin: 02/03/25 08:31 Dose: Not Given Home Medications ?Medication ?Instructions ?Recorded ?Confirmed ?Last Taken ?Type multivitamin-iron sulfate 15 1 tab PO DAILY 12/30/24 02/03/25 02/01/25 History mg-folic acid 400 mcg tablet (Tab-A-Marissa Multivitamin w-iron) clotrimazole-betamethasone 1 1 appl topical DAILY 01/25/25 02/03/25 02/01/25 History %-0.05 % topical cream sucralfate 1 gram tablet 1 g PO BIDAC 02/03/25 02/03/25 02/01/25 History Physical Exam Vital Signs: Vital Signs: Last Vital Signs Temp 98.4 F 02/03/25 10:59 Pulse 97 02/03/25 10:59 Resp 18 02/03/25 10:59 BP 145/63 H 02/03/25 10:59 Pulse Ox 98 02/03/25 10:59 O2 Del Method Room Air 02/03/25 10:59 BMI result Body Mass Index 31.9 EXAM: GENERAL: The patient is well developed and nontoxic. VITAL SIGNS:see workflow HEENT: Nonicteric sclerae, PERRLA, EOMI. Oropharynx clear. Moist mucous membranes. Conjunctivae appear well perfused. No thyroid mass. CHEST: Chest wall is nontender. HEART: Regular rate and rhythm without murmurs. LUNGS: Clear to auscultation bilaterally. ABDOMEN: Soft, positive bowel sounds, nontender, enlarged irregular liver .no flank tenderness SKIN: No rash, no excessive bruising, petechiae, or purpura. NEUROLOGIC: Cranial nerves II-XII intact without motor/sensory deficit. Psych: normal affect Results Labs 02/03/25 05:22 02/03/25 05:22 Labs: Short CBC 02/02/25 02/03/25 Range/Units 19:02 05:22 WBC 12.5 H 12.8 H (4.8-10.8) X10*3/uL Hgb 5.1 L* 6.4 L* D (12.0-16.0) g/dl Hct 14.9 L* 18.2 L* D (37.0-47.0) % Plt Count 38 L D 68 L D (160-400) X10*3/uL BMP 02/02/25 02/03/25 19:02 05:22 Sodium 133 L 134 L Potassium 3.6 3.2 L Chloride 102 102 Carbon Dioxide 24 24 BUN 19 H 14 Creatinine 0.67 0.54 Calcium 7.4 L 7.5 L Liver Function 02/02/25 02/03/25 Range/Units 19:02 05:22 Total Bilirubin 0.4 0.9 (0.0-1.0) mg/dL AST 115 H 110 H (5-31) U/L ALT 59 H 52 H (0-31) U/L Alkaline Phosphatase 153 H 145 H (39-117) U/L Albumin 2.5 L 2.6 L (3.5-5.0) g/dL Assessment and Plan (1) Acute anemia: Status: Acute Plan 1/ acute anemia, no overt blood loss -could be recurrence of GAVE or another process, could also be due to bone marrow failure given plts were also low. PLAN: 1/ EGD today for assessment 2/ keep on PPI Procedures Date of Service Date of Service: 02/03/25
[2025-02-03] MEDS: Lactated Ringers 1,000 ML 80 ML IVCONT (11:25)
--- NOTE | 2025-02-03 12:38 | W.PM.OPN ---
Operative Note Operative Note Date of Service: 02/03/25 Narrative: Procedure Description: EGD Indication: [] Anesthesia: MAC FLEXIBLE TRANSORAL UPPER GASTROINTESTINAL ENDOSCOPY UPPER ENDOSCOPY Consent: Indications for the procedure and potential complications of bleeding, perforation, reaction to medications and missed diagnosis were discussed with the patient and informed consent was obtained. Instrument: Olympus GIF H 190 J mid size upper endoscope Monitoring: Vital signs and clinical assessment, continuous EKG monitoring, Pulse oximetry, Carbon Dioxide monitoring and blood pressure monitoring were done throughout the procedure. Procedure: The patient was placed in the left lateral decubitis position and pre-procedure medications were administered and a bite block was placed. The endoscope was inserted into the mouth and advanced under direct vision to the third part of duodenum. A careful inspection was made as the upper endoscope was withdrawn including a retroflexed examination of the proximal stomach; Findings and interventions are described below. Findings: Larynx:normal Esophagus: GE junction at 38 cm, diaphragm hiatus at 38 cm, normal mucosa Stomach: ulcerated mucosal areas from prior APC noted in the antrum with v mild ozzing from one spot, hemospray applied. Grade 2 flap valve on retroflexed examination of the cardia. Duodenum: In duodenal bulb there was one small area of continuous oozing with duodenitis, treated with a clip and then hemospray. Intervention: clip and hemospray Impression/Findings: ulcerated mucosa as expected from prior APC, duodenitis PLAN: Cont with PPI can use sucralfate as well 1 g BID -but different time to PPI try to keep plts > 50 iron supplements if ongoing anemia then recommend octreotide SQ TID can allow clears later today
--- NOTE | 2025-02-03 14:10 | HO.PM.IMPN ---
Subjective Subjective Date of Service: 02/03/25 Interval History: Seen and examined this morning Follow-up for anemia Patient unsure initially if she wanted repeat EGD as last time it cost her lots of gas, however she eventually agreed and underwent repeat endoscopy this morning - showing ulcerated mucosal areas from prior APC with mild oozing status post hemo spray and clip Review of Systems Review of Systems: Yes all other systems are reviewed and are negative Constitutional Constitutional: Denies chills and Denies fever(s) Cardiovascular Cardiovascular: Denies chest pain, Denies palpitations and Reports dyspnea Respiratory Respiratory: Denies cough and Reports dyspnea Gastrointestinal Gastrointestinal: Reports abdominal pain, Denies nausea and Denies vomiting Endocrine Endocrine: Denies palpitations Physical Exam Vital Signs: Vital Signs: Last Vital Signs Temp 98.5 F 02/03/25 12:55 Pulse 90 02/03/25 12:55 Resp 16 02/03/25 12:55 BP 142/55 H 02/03/25 12:55 Pulse Ox 98 02/03/25 12:55 O2 Del Method Room Air 02/03/25 12:55 O2 Flow Rate 6 02/03/25 12:42 BMI result Body Mass Index 31.9 Const: General: cooperative, comfortable, no acute distress, alert and awake Nutritional Appearance: overweight Orientation/consciousness: patient oriented x3 Resp: Effort & Inspection: normal respiratory effort and able to speak in complete sentences Cardio: Rate: regular rate Neuro: General: patient oriented x3, moves all extremities and CN's II-XI intact bilaterally Objective Data Active Medications Acetaminophen (Acetaminophen 325 Mg Tablet) 650 mg PO Q6H PRN PRN Reason: Pain, Mild 1-3,fever,headache Calcium Carbonate (Calcium Carbonate 750 Mg Tab.Chew) 750 mg PO Q4H PRN PRN Reason: Heartburn Dextrose/Sodium Chloride (D51/2ns) 1,000 mls @ 100 mls/hr IVCONT .Q10H [facility] Last Admin: 02/03/25 08:35 Dose: 100 mls/hr Documented By: MALCOLM Lactated Ringer's (Lr) 1,000 mls @ 80 mls/hr IVCONT .[id number] [facility] Last Admin: 02/03/25 11:25 Dose: 80 mls/hr Documented By: CARLY Magnesium Hydroxide (Milk Of Magnesia 30 Ml Oral.Susp) 30 ml PO DAILY PRN PRN Reason: Constipation Melatonin (Melatonin 3 Mg Tablet) 6 mg PO BEDTIME PRN PRN Reason: Insomnia Naloxone HCl (Naloxone Hcl 0.4 Mg/Ml Vial) 0.04 mg IVPUSH Q5M PRN PRN Reason: Excessive sedation or RR < 8 Pantoprazole Sodium (Pantoprazole Sodium 40 Mg/10 Ml Vial) 40 mg IVPUSH DAILY@0630 [facility] Last Admin: 02/03/25 05:37 Dose: 40 mg Documented By: REVA Sodium Chloride (0.9 % Sodium Chloride Flush 3 Ml Syringe) 3 ml IVFLUSH QSHIFT [facility] Last Admin: 02/03/25 08:31 Dose: Not Given Documented By: MALCOLM Non-Admin Reason: IV Running Labs 02/03/25 05:22 02/03/25 05:22 Labs: Laboratory Results - last 24 hr 02/02/25 02/02/25 02/03/25 19:02 20:07 05:22 MCV 92.5 96.3 MCH 31.7 33.9 H MCHC 34.2 35.2 H RDW 17.1 H 17.5 H Plt Count 38 L D 68 L D MPV 12.4 H 11.7 Immature Gran % (Auto) 1.9 H 1.6 H Neut % (Auto) 74.6 H 76.2 H Lymph % (Auto) 13.0 L 10.4 L [place] % (Auto) 10.1 11.1 H Eos % (Auto) 0.2 0.5 Baso % (Auto) 0.2 0.2 Lymph # (Auto) 1.6 1.3 [place] # (Auto) 1.3 H 1.4 H Eos # (Auto) 0.0 0.1 Baso # (Auto) 0.0 0.0 Abs Immat Gran (auto) 0.24 H 0.20 H Absolute Neuts (auto) 9.3 H 9.8 H Absolute Nucleated RBC 0.060 H 0.030 H Nucleated RBC % (auto) 0.5 H 0.2 Hold Blue Top SEE NOTE Anion Gap 11 L 11 L Estim Creat Clear Calc 81.4 101.1 Estimated GFR > 60 > 60 Random Glucose 121 H 132 H Calcium 7.4 L 7.5 L Total Bilirubin 0.4 0.9 AST 115 H 110 H ALT 59 H 52 H Alkaline Phosphatase 153 H 145 H Troponin I High Sens 15.6 B-Natriuretic Peptide 108 H Total Protein 5.1 L 5.0 L Albumin 2.5 L 2.6 L Blood Type B Positive Antibody Screen NEGATIVE Crossmatch See Detail Assessment and Plan (1) Acute anemia: Status: Acute (2) Acute gastrointestinal bleeding: Status: Acute Plan 64-year-old female with a past medical history of metastatic breast cancer status post chemo/radiotherapy/surgery, metastatic gallbladder cancer-completed chemotherapy; history of partial hepatectomy, cholecystectomy, lumpectomy; CAD, arthritis, neuropathy, GERD, pulmonary embolism-not on anticoagulation secondary to GI bleed; recent admission to the hospital last week of December for acute anemia secondary to GI blood loss-diagnosed gastric antral vascular ectasia; acute on chronic thrombocytopenia; received blood transfusions and subsequently discharged home on 01/31/2025; presented to the hospital today with a chief complaint of generalized weakness. Noted acute on chronic anemia. Admitted for further management. Acute on chronic anemia: Patient during the last admission was diagnosed with gastric annular vascular ectasia, repeat EGD 02/03 showing ulcerated mucosal areas from prior APC with mild oozing, duodenal bulb with area of oozing with duodenitis status post clip and hemo spray Patient being ordered for 3 units of PRBC, 1 unit of platelets, 1 unit of FFP. Hematology oncology consult seen by GI - egd as above, plan for sucralfate 1 g b.i.d., ppi, goal to keep platelets greater than 50 Okay for clear liquids resume po iron trend cbc chronic thrombocytopenia Due to underlying metastatic gallbladder carcinoma with liver metastases Hypokalemia Replace and follow HX pulmonary embolism: Patient not on anticoagulation secondary to GI bleed. s/p IVC filter on last admission HX cholangiocarcinoma: Follows with [facility] and [facility]. DVT prophylaxis: SCD boots Code status: Full code Quality Stroke Does the patient have a stroke diagnosis?: No VTE Prior VTE?: No VTE Risk Level:: Medical - moderate - high VTE Device Contraindication: N/A - Device Ordered VTE Drug Contraindication: Treatment Not Indicated
[2025-02-03] MEDS: Sucralfate 1 GM TABLET PO (15:43)
[2025-02-03] MEDS: Potassium Chloride Packet 20 MEQ PACKET 40 MEQ PO (15:44)
[2025-02-03] MEDS: 0.9 % Sodium Chloride Flush 3 ML SYRINGE IVFLUSH (15:44)
[2025-02-03] MEDS: Simethicone 80 MG TAB.CHEW PO (16:58)
[2025-02-03] MEDS: Melatonin 3 MG TABLET 6 MG PO (19:53)
[2025-02-03] MEDS: Ferrous Sulfate 324 MG TABLET.DR PO (19:53)
[2025-02-03 20:14] LABS: Hematocrit 26.2 % (37.0-47.0); Hemoglobin 9.3 g/dl (12.0-16.0)
--- NOTE | 2025-02-03 23:17 | PC.NURSE ---
Pt refusing IVF. Patient educated on importance. Continuing to refuse. MD Medeiros made aware. Patient on clear liquids and consuming water and broth.
[2025-02-04 03:13] VITALS: BP 128/59; PULSE 84; RESP 16; TEMP 36.8; O2SAT 98
[2025-02-04] MEDS: Pantoprazole Sodium 40 MG/10 ML VIAL IVPUSH (06:03)
[2025-02-04] MEDS: Simethicone 80 MG TAB.CHEW PO ×2 (06:04→16:30)
[2025-02-04 06:59] VITALS: BP 142/70; PULSE 71; RESP 18; TEMP 36.7; O2SAT 97
[2025-02-04] MEDS: Sucralfate 1 GM TABLET PO ×2 (07:39→16:30)
[2025-02-04] MEDS: Ferrous Sulfate 324 MG TABLET.DR PO (08:24)
--- NOTE | 2025-02-04 08:32 | HO.POSTANES ---
Post Anesthesia Evaluation Post Anesthesia Evaluation Date of Service: 02/04/25 Vital Signs: Vital Signs Temp Pulse Resp BP Pulse Ox O2 Del Method 02/04/25 06:59 98.0 F 71 18 142/70 H 97 Room Air 02/04/25 03:13 98.2 F 84 16 128/59 L 98 Room Air 02/03/25 23:31 97.9 F 84 16 114/57 L 94 Room Air Anesthesia: Monitored Mental Status: Awake Pain Control: Satisfactory Nausea/Vomiting: None Hydration: Adequate Anesthesia-Related Issues: No Anes. Related Issues
[2025-02-04] MEDS: Milk of Magnesia 30 ML ORAL.SUSP PO (09:05)
[2025-02-04 09:21] LABS: Hematocrit 28.9 % (37.0-47.0); Mean Corpuscular HGB Conc 34.6 g/dl (31.0-35.0); Mean Corpuscular Hemoglobin 31.5 pg (27.0-33.0); Mean Corpuscular Volume 91.2 fL (80.0-98.0); NRBC Pct Auto 0.2 /100WBC (0.0-0.2); PLT CLUMP 1; Red Blood Count 3.17 X10*6/uL (4.20-5.50); Red Cell Distribution Width 18.2 % (11.0-16.0)
[2025-02-04 09:23] LABS: White Blood Count 14.6 X10*3/uL (4.8-10.8)
[2025-02-04 09:54] LABS: Mean Platelet Volume 11.9 fL (9.4-12.3); Platelet Count 53 X10*3/uL (160-400)
--- NOTE | 2025-02-04 12:33 | P.CNHO_ITS ---
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 Patient was recently admitted to the hospital last week of December for acute anemia secondary to GI blood loss-diagnosed gastric antral vascular ectasia; acute on chronic thrombocytopenia; received blood transfusions and subsequently discharged home on 01/31/2025; she saw her PCP Dr. Rubio who did blood work and noted that she was anemic again. She was therefore referred back to the emergency department. Patient denies any overt bleeding at home. She has not been taking everolimus. Review of Systems - Constitutional Reports as per HPI, Reports fatigue, Reports lack of energy, Reports malaise, Reports poor appetite - Cardiovascular Reports no additional cardiovascular complaints - Respiratory Reports no additional respiratory complaints - Gastrointestinal Reports no additional gastrointestinal complaints PMFSH Medical History: Medical History (Last Reviewed 02/03/25 @ 13:18 by Maricruz Mahoney MD) Back pain Breast cancer, left Onset Date: ~10/2016 Breast lump on right side at 5 o'clock position Chest pain Chronic cough History of colon polyps Metastasis from gallbladder cancer Metastatic cancer to liver Metastatic disease Neuropathy Pneumonitis Pulmonary embolism Pulmonary embolism Pulmonary nodules Spondylosis Vaginal yeast infection Family History: Family History (Last Reviewed 02/03/25 @ 13:18 by Maricruz Mahoney MD) Mother No problems noted. Father No problems noted. Other No family history of cancer Surgical History: Surgical History (Last Reviewed 02/03/25 @ 13:18 by Maricruz Mahoney MD) History of esophagogastroduodenoscopy (EGD) History of lumpectomy of right breast Onset Date: 06/26/22 Hx of cholecystectomy Hx of colonoscopy Onset Date: ~10/2018 Hx of vein stripping S/P breast lumpectomy Social History: Social History (Last Reviewed 02/03/25 @ 13:18 by Maricruz Mahoney MD) Living Situation History: Household Members: Children Household Members Other:: currently lives with her son Housing: House Are you a primary wound care physician to a significant other at home: No Do you presently have visiting nurse or other home services: Yes Alcohol History: Unable to assess alcohol history related to: Unknown Alcohol History Details: 1. How often do you have a drink containing alcohol?: a. Never 3. How often do you have six or more drinks on one occasion?: a. Never AUDIT-C Alcohol total score: 0 Currently Displaying Signs/Symptoms of Alcohol Withdrawal: No Tobacco History: Patient Tobacco Use Status: Never used Tobacco Smoked in Last 30 Days: No e-Cigarette/Vaping Use: Never Used Second Hand Smoke Exposure: No Substance Use History: Use of substances other than those prescribed or required for medical reasons : No Currently Displaying Signs/Symptoms of Drug Intoxication Withdrawal: No Domestic Abuse History: Have you been hit, kicked, punched, or otherwise hurt by someone within the past year? If so, by whom?: No Advance Directives: Advance Directives: No Advance Directives Information Provided: Yes Advance Directives on File: No Homicidal Assessment: Do you have a plan to hurt others: No Plan Nutrition Assessment: Recently lost weight without trying: No Eating poorly because of decreased appetite: Yes Nutrition Risks: No Nutritional Risk Patient : No : No Poor oral hygiene: No Occupation Assessmet: service: No Current occupational status: disabled Current occupation: rt handed Home Medications and Allergies Current Medications: Current Medications Acetaminophen (Acetaminophen 325 Mg Tablet) 650 mg PO Q6H PRN PRN Reason: Pain, Mild 1-3,fever,headache Calcium Carbonate (Calcium Carbonate 750 Mg Tab.Chew) 750 mg PO Q4H PRN PRN Reason: Heartburn Ferrous Sulfate (Ferrous Sulfate 324 Mg Tablet.Dr) 324 mg PO BID [facility] Last Admin: 02/04/25 08:24 Dose: 324 mg Magnesium Hydroxide (Milk Of Magnesia 30 Ml Oral.Susp) 30 ml PO DAILY PRN PRN Reason: Constipation Last Admin: 02/04/25 09:05 Dose: 30 ml Melatonin (Melatonin 3 Mg Tablet) 6 mg PO BEDTIME PRN PRN Reason: Insomnia Last Admin: 02/03/25 19:53 Dose: 6 mg Omeprazole (Omeprazole 20 Mg Capsule.Dr) 20 mg PO BID@0630,1630 [facility] Simethicone (Simethicone 80 Mg Tab.Chew) 80 mg PO QIDWMHS PRN PRN Reason: Gas Last Admin: 02/04/25 06:04 Dose: 80 mg Sodium Chloride (0.9 % Sodium Chloride Flush 3 Ml Syringe) 3 ml IVFLUSH QSHIFT [facility] Last Admin: 02/04/25 07:27 Dose: Not Given Sucralfate (Sucralfate 1 Gm Tablet) 1 gm PO BIDAC [facility] Last Admin: 02/04/25 07:39 Dose: 1 gm Home Medications ?Medication ?Instructions ?Recorded ?Confirmed ?Type multivitamin-iron sulfate 15 1 tab PO DAILY 12/30/24 02/03/25 History mg-folic acid 400 mcg tablet (Tab-A-Marissa Multivitamin w-iron) clotrimazole-betamethasone 1 1 appl topical DAILY 01/25/25 02/03/25 History %-0.05 % topical cream sucralfate 1 gram tablet 1 g PO BIDAC 02/03/25 02/03/25 History Allergies Allergy/AdvReac Type Severity Reaction Status Date / Time Penicillins [PENICILLINS] Allergy Severe ANAPHYLAXIS, Verified 02/02/25 18:03 swelling streptomycin [STREPTOMYCIN] Allergy Severe ANAPHYLAXIS Verified 02/02/25 18:03 Physical Exam Vital signs: Vital Signs Temp 98.0 F 02/04/25 06:59 Pulse 71 02/04/25 06:59 Resp 18 02/04/25 06:59 BP 142/70 H 02/04/25 06:59 Pulse Ox 97 02/04/25 06:59 O2 Del Method Room Air 02/04/25 06:59 O2 Flow Rate 6 02/03/25 12:42 Intake & Output 02/03/25 02/04/25 02/04/25 18:59 06:59 18:59 Intake Total 2260.667 / 3562.334 1301.667 / 3562.334 305 / 305 Balance 2260.667 / 3562.334 1301.667 / 3562.334 305 / 305 Intake: IV Intake, Intraoperative 100 / 100 Amount Intake (Blood Product) Amount 1024 / 1024 Red Blood Cells (E0336) Unit 350 / 350 [id number] Red Blood Cells (E0336) Unit 350 / 350 [id number] Thawed Plasma (E2684) Unit 324 / 324 [id number] Intake, IV Amount 1136.667 / 2438.334 1301.667 / 2438.334 305 / 305 Dextrose 5 % and 0.45 % NaCl 1, 990 / 2291.667 1301.667 / 2291.667 305 / 305 000 ml @ 100 mls/hr IVCONT . Q10H [facility] Rx#:[id number] Lactated Ringers 1,000 ml @ 80 146.667 / 146.667 mls/hr IVCONT .[id number] [facility] Rx#: [id number] Other: NPO Yes Number of Unmeasured Voids 1 Last Bowel Movement 02/03/25 02/03/25 Weight 79 kg Weight in Grams [id number] Weight 79 kg - Constitutional Present: no acute distress - Routine HEENT Exam Head: Present: normal inspection Eye: Present: EOMI, PERRL - Routine Neck Exam Absent: lymphadenopathy - Routine Respiratory Exam Present: CTAB. Absent: rhonchi, wheezes - Routine Cardiovascular Exam Cardiovascular: Present: S1, S2 - Routine Abdominal Exam Present: soft - Routine Extremities Exam Present: pulses intact - Routine Skin Exam Present: jaundice Hem/Onc Consult Result - Labs CBC & Chem 7: 02/04/25 09:04 02/03/25 05:22 Labs: Short CBC 02/03/25 02/04/25 Range/Units 20:01 09:04 WBC 14.6 H (4.8-10.8) X10*3/uL Hgb 9.3 L D 10.0 L (12.0-16.0) g/dl Hct 26.2 L D 28.9 L (37.0-47.0) % Plt Count 53 L (160-400) X10*3/uL Assessment and Plan Patient Active problem list reviewed?: Yes (1) Acute anemia Status: Acute Assessment and plan: 1. This is a 64-year-old woman with remote history of left breast cancer status post chemo therapy and radiation following surgery who has since been diagnosed with metastatic gallbladder cancer/cholangiocarcinoma. She underwent R0 resection for stage IIIB (PT 2 B N1 M0) grade 2 gallbladder adenocarcinoma. She had involvement of 2 of 4 lymph nodes and lymphovascular invasion. She received adjuvant chemotherapy with gemcitabine plus capecitabine from April until June 2024. She received concurrent chemoradiation therapy with oral capecitabine from 08/2024 until September 2024. She had biopsy of liver mass performed 11/09/2024 at [facility] which revealed moderately differentiated adenocarcinoma, tumor cells positive for CK7, CK20 and CDX2 and negative for TTF 1 and MITUL 3 supporting morphological interpretation of clinically known gallbladder adenocarcinoma. CT abdomen/pelvis with contrast performed in November 2024 at [facility] revealed multiple new and enlarging hypoattenuating liver metastasis, largest in right lobe measuring 6.7 x 5.9 cm and several additional lesions. CT angiogram performed on 12/30/2024 was positive for pulmonary embolism in segmental left lower lobe pulmonary arteries, extensive and innumerable metastatic lesions throughout liver as well as numerous bilateral pulmonary nodules suspicious for metastasis. She has been off Eliquis since end of December. She underwent IVC filter placement by Dr. Mendez. She stopped everolimus since end december. Her pancytopenia/thrombocytopenia is from everolimus therefore this was stopped. She appears to have developed recurrent gastric and duodenal ulceration, she underwent repeat EGD on 02/03/2025. She is on PPI and sucralfate. She has received transfusion of blood and platelets as well as FFP. Her platelet counts today are 53 K. She can be started on TPO agents such as romiplostim as outpatient if her platelets do not stabilized. At this time continue platelet transfusion to keep the numbers above 40 K. Thank you for the consultation. - Time Spent With Patient Time Spent with Patient (in minutes): 20 Additional Coding: - Additional E/M codes Complex E/M visit Add On: CPT G2211
[2025-02-04 12:38] LABS: Carbon Dioxide 19 mmol/L (22-29)
--- NOTE | 2025-02-04 12:38 | HO.PM.IMPN ---
Subjective Subjective Date of Service: 02/04/25 Interval History: seen and examined this morning follow up for anemia having abdominal bloating, no pain, no bleeding Review of Systems Review of Systems: Yes all other systems are reviewed and are negative Constitutional Constitutional: Denies chills and Denies fever(s) ENT Ears, Nose, Mouth, and Throat: Denies dizziness Cardiovascular Cardiovascular: Denies chest pain and Denies palpitations Respiratory Respiratory: Denies cough Neurologic Neurologic: Denies dizziness Endocrine Endocrine: Denies palpitations Physical Exam Vital Signs: Vital Signs: Last Vital Signs Temp 98.0 F 02/04/25 06:59 Pulse 71 02/04/25 06:59 Resp 18 02/04/25 06:59 BP 142/70 H 02/04/25 06:59 Pulse Ox 97 02/04/25 06:59 O2 Del Method Room Air 02/04/25 06:59 O2 Flow Rate 6 02/03/25 12:42 BMI result Body Mass Index 31.9 Const: General: cooperative, comfortable, no acute distress, alert and awake Nutritional Appearance: overweight Orientation/consciousness: patient oriented x3 Resp: Effort & Inspection: normal respiratory effort and able to speak in complete sentences Cardio: Rate: regular rate Neuro: General: patient oriented x3, moves all extremities and CN's II-XI intact bilaterally Objective Data Active Medications Acetaminophen (Acetaminophen 325 Mg Tablet) 650 mg PO Q6H PRN PRN Reason: Pain, Mild 1-3,fever,headache Calcium Carbonate (Calcium Carbonate 750 Mg Tab.Chew) 750 mg PO Q4H PRN PRN Reason: Heartburn Ferrous Sulfate (Ferrous Sulfate 324 Mg Tablet.) 324 mg PO BID [facility] Last Admin: 02/04/25 08:24 Dose: 324 mg Documented By: ALYSSA Magnesium Hydroxide (Milk Of Magnesia 30 Ml Oral.Susp) 30 ml PO DAILY PRN PRN Reason: Constipation Last Admin: 02/04/25 09:05 Dose: 30 ml Documented By: ALYSSA Melatonin (Melatonin 3 Mg Tablet) 6 mg PO BEDTIME PRN PRN Reason: Insomnia Last Admin: 02/03/25 19:53 Dose: 6 mg Documented By: TIFFANIE Omeprazole (Omeprazole 20 Mg Capsule.) 20 mg PO BID@0630,1630 [facility] Simethicone (Simethicone 80 Mg Tab.Chew) 80 mg PO QIDWMHS PRN PRN Reason: Gas Last Admin: 02/04/25 06:04 Dose: 80 mg Documented By: TIFFANIE Sodium Chloride (0.9 % Sodium Chloride Flush 3 Ml Syringe) 3 ml IVFLUSH QSHIFT [facility] Last Admin: 02/04/25 07:27 Dose: Not Given Documented By: ALYSSA Non-Admin Reason: IV Running Sucralfate (Sucralfate 1 Gm Tablet) 1 gm PO BIDAC [facility] Last Admin: 02/04/25 07:39 Dose: 1 gm Documented By: ALYSSA Labs 02/04/25 09:04 02/03/25 05:22 Labs: Laboratory Results - last 24 hr 02/02/25 02/04/25 20:07 09:04 MCV 91.2 D MCH 31.5 MCHC 34.6 RDW 18.2 H Plt Count 53 L MPV 11.9 Absolute Nucleated RBC 0.030 H Nucleated RBC % (auto) 0.2 Blood Type B Positive Antibody Screen NEGATIVE Crossmatch See Detail Assessment and Plan (1) Acute anemia: Status: Acute Plan 64-year-old female with a past medical history of metastatic breast cancer status post chemo/radiotherapy/surgery, metastatic gallbladder cancer-completed chemotherapy; history of partial hepatectomy, cholecystectomy, lumpectomy; CAD, arthritis, neuropathy, GERD, pulmonary embolism-not on anticoagulation secondary to GI bleed; recent admission to the hospital last week of December for acute anemia secondary to GI blood loss-diagnosed gastric antral vascular ectasia; acute on chronic thrombocytopenia; received blood transfusions and subsequently discharged home on 01/31/2025; presented to the hospital today with a chief complaint of generalized weakness. Noted acute on chronic anemia. Admitted for further management. 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 repeat EGD 02/03 showing ulcerated mucosal areas from prior APC with mild oozing, duodenal bulb with area of oozing with duodenitis status post clip and hemo spray s/p 3 units of PRBC, 1 unit of platelets, 1 unit of FFP with appropriate rise in H/H H/H stable overnight continue sucralfate 1 g b.i.d., ppi resume po iron advance diet to full liquids, if H/H stable advance to full diet in am trend cbc chronic thrombocytopenia Due to underlying metastatic gallbladder carcinoma with liver metastases platelets stable seen by hematology, goal to keep platelets above 40 - can consider TPO agents such as romiplostim as outpatient if her platelets do not stabilize Hypokalemia resolved with replacement HX pulmonary embolism: Patient not on anticoagulation secondary to GI bleed. s/p IVC filter on last admission DVT prophylaxis: SCD boots Code status: Full code Quality Stroke Does the patient have a stroke diagnosis?: No VTE Prior VTE?: No VTE Risk Level:: Medical - moderate - high VTE Device Contraindication: N/A - Device Ordered VTE Drug Contraindication: Treatment Not Indicated
[2025-02-04 12:42] LABS: Anion Gap 17 (12-20); Blood Urea Nitrogen 17 mg/dL (9-16); Calcium 7.9 mg/dL (8.4-10.2); Chloride 103 mmol/L (96-108); Creatinine Clr Calc Pharmacy 86.2; Estimated Glomerular Filt Rate > 60; Glucose Random 151 mg/dL (60-115); Potassium 3.6 mmol/L (3.3-5.1); Sodium 135 mmol/L (135-145)
--- NOTE | 2025-02-04 12:56 | P.CDIM_ITS ---
PROVIDER RESPONSE TEXT: To clarify, the appropriate diagnosis supported by the clinical indicators: Acute blood loss anemia with baseline chronic anemia: anemia of chronic dz QUERY TEXT: PHYSICIAN'S DOCUMENTATION REQUEST Date of Query: 02/04/2025 11:30 AM EDT Patient Name: Susana Sanchez Admit Date: 02/03/2025 Dear Alanna MELO, A review of the medical record indicates additional documentation may be needed. Please review below and update the documentation accordingly. Clinical Indicators: Progress notes: EGD 02/03 showing ulcerated mucosal area from prior APC with oozing, duodenal bulb with area of oozing. Transfused 3 units PRBC H/H 5.1/14.9 BP 100/48 Weak, tired, short of breath REEVES, GI Bleed. acute on chronic anemia Based on the above, could you clarify which of the following is the most likely type of anemia you ar e evaluating, treating, and/or monitoring? Acute blood loss anemia Acute blood loss anemia with baseline chronic anemia (specify type) Anemia of chronic disease indicate if neoplastic disease, or other Iron deficiency anemia due to blood loss (acute/chronic) Other (explain) Clinically unable to determine (explain) Thank you, Amelia Corona, CCS, CDIS Use of terms such as suspected, likely, concern for, or probable (associated with a specific diagnosi s that is being evaluated, monitored, or treated as if it exists) are acceptable and can be coded in the inpatient se tting, when documented at the time of discharge. Please use your independent medical judgment in providing your response. THIS QUERY IS PART OF THE PERMANENT MEDICAL RECORD
[2025-02-04 15:20] VITALS: BP 119/58; PULSE 90; RESP 18; TEMP 37.2; O2SAT 98
[2025-02-04] MEDS: Omeprazole 20 MG CAPSULE.DR PO (16:30)
[2025-02-04] MEDS: 0.9 % Sodium Chloride Flush 3 ML SYRINGE IVFLUSH ×2 (16:38→19:48)
[2025-02-04 19:24] VITALS: BP 154/72; PULSE 90; RESP 18; TEMP 36.9; O2SAT 99
[2025-02-04 23:11] VITALS: BP 129/60; PULSE 97; RESP 18; TEMP 36.6; O2SAT 96
[2025-02-05 03:18] VITALS: BP 122/56; PULSE 99; RESP 18; TEMP 38.1; O2SAT 95
--- NOTE | 2025-02-05 03:36 | PC.NURSE ---
patient temp this am 100.5 refusing tylenol at this time
[2025-02-05] MEDS: Omeprazole 20 MG CAPSULE.DR PO ×2 (05:14→16:31)
[2025-02-05 07:15] LABS: Hematocrit 26.8 % (37.0-47.0); Mean Corpuscular HGB Conc 33.6 g/dl (31.0-35.0); Mean Corpuscular Hemoglobin 31.6 pg (27.0-33.0); Mean Platelet Volume 12.2 fL (9.4-12.3); Red Blood Count 2.85 X10*6/uL (4.20-5.50); Red Cell Distribution Width 18.7 % (11.0-16.0); White Blood Count 11.6 X10*3/uL (4.8-10.8)
[2025-02-05 07:18] LABS: Platelet Count 45 X10*3/uL (160-400)
[2025-02-05 08:35] VITALS: BP 141/64; PULSE 96; RESP 18; TEMP 36.8; O2SAT 97
[2025-02-05] MEDS: Ferrous Sulfate 324 MG TABLET.DR PO ×2 (08:35→20:15)
[2025-02-05] MEDS: Sucralfate 1 GM TABLET PO ×2 (08:35→16:31)
[2025-02-05] MEDS: Simethicone 80 MG TAB.CHEW PO ×3 (08:37→20:16)
[2025-02-05] MEDS: 0.9 % Sodium Chloride Flush 3 ML SYRINGE IVFLUSH ×3 (08:38→20:17)
--- NOTE | 2025-02-05 11:56 | HO.PM.IMPN ---
Subjective Subjective Date of Service: 02/05/25 Interval History: seen and examined this morning follow up for anemia having abdominal bloating, no pain, no bleeding Review of Systems Review of Systems: Yes all other systems are reviewed and are negative Constitutional Constitutional: Denies chills and Denies fever(s) ENT Ears, Nose, Mouth, and Throat: Denies dizziness Cardiovascular Cardiovascular: Denies chest pain and Denies palpitations Respiratory Respiratory: Denies cough Neurologic Neurologic: Denies dizziness Endocrine Endocrine: Denies palpitations Physical Exam Vital Signs: Vital Signs: Last Vital Signs Temp 98.2 F 02/05/25 08:35 Pulse 96 02/05/25 08:35 Resp 18 02/05/25 08:35 BP 141/64 H 02/05/25 08:35 Pulse Ox 97 02/05/25 08:35 O2 Del Method Room Air 02/05/25 08:35 O2 Flow Rate 6 02/03/25 12:42 BMI result Body Mass Index 31.9 Appearing in no acute distress lung sounds are clear to auscultation heart regular rate rhythm, clear S1, S2 positive bowel sounds, abdomen is soft, nontender neuro patient is alert x3, no focal deficits Objective Data Active Medications Acetaminophen (Acetaminophen 325 Mg Tablet) 650 mg PO Q6H PRN PRN Reason: Pain, Mild 1-3,fever,headache Calcium Carbonate (Calcium Carbonate 750 Mg Tab.Chew) 750 mg PO Q4H PRN PRN Reason: Heartburn Ferrous Sulfate (Ferrous Sulfate 324 Mg Tablet.) 324 mg PO BID [facility] Last Admin: 02/05/25 08:35 Dose: 324 mg Documented By: NICOLE Magnesium Hydroxide (Milk Of Magnesia 30 Ml Oral.Susp) 30 ml PO DAILY PRN PRN Reason: Constipation Last Admin: 02/04/25 09:05 Dose: 30 ml Documented By: ALYSSA Melatonin (Melatonin 3 Mg Tablet) 6 mg PO BEDTIME PRN PRN Reason: Insomnia Last Admin: 02/03/25 19:53 Dose: 6 mg Documented By: TIFFANIE Omeprazole (Omeprazole 20 Mg Capsule.) 20 mg PO BID@0630,1630 [facility] Last Admin: 02/05/25 05:14 Dose: 20 mg Documented By: MARIELENA Simethicone (Simethicone 80 Mg Tab.Chew) 80 mg PO QIDWMHS PRN PRN Reason: Gas Last Admin: 02/05/25 08:37 Dose: 80 mg Documented By: NICOLE Sodium Chloride (0.9 % Sodium Chloride Flush 3 Ml Syringe) 3 ml IVFLUSH QSHIFT [facility] Last Admin: 02/05/25 08:38 Dose: 3 ml Documented By: NICOLE Sucralfate (Sucralfate 1 Gm Tablet) 1 gm PO BIDAC [facility] Last Admin: 02/05/25 08:35 Dose: 1 gm Documented By: NICOLE Labs 02/05/25 06:45 02/04/25 09:04 Labs: Laboratory Results - last 24 hr 02/04/25 02/05/25 09:04 06:45 MCV 94.0 MCH 31.6 MCHC 33.6 RDW 18.7 H Plt Count 45 L MPV 12.2 Absolute Nucleated RBC 0.000 Nucleated RBC % (auto) 0.0 Anion Gap 17 Estim Creat Clear Calc 86.2 Estimated GFR > 60 Random Glucose 151 H Calcium 7.9 L Assessment and Plan (1) Acute anemia: Status: Acute Plan 64-year-old female with a past medical history of metastatic breast cancer status post chemo/radiotherapy/surgery, metastatic gallbladder cancer-completed chemotherapy; history of partial hepatectomy, cholecystectomy, lumpectomy; CAD, arthritis, neuropathy, GERD, pulmonary embolism-not on anticoagulation secondary to GI bleed; recent admission to the hospital last week of December for acute anemia secondary to GI blood loss-diagnosed gastric antral vascular ectasia; acute on chronic thrombocytopenia; received blood transfusions and subsequently discharged home on 01/31/2025; presented to the hospital today with a chief complaint of generalized weakness. Noted acute on chronic anemia. Admitted for further management. 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 repeat EGD 02/03 showing ulcerated mucosal areas from prior APC with mild oozing, duodenal bulb with area of oozing with duodenitis status post clip and hemo spray s/p 3 units of PRBC, 1 unit of platelets, 1 unit of FFP with appropriate rise in H/H H/H stable continue sucralfate 1 g b.i.d., ppi po iron advance to full diet chronic thrombocytopenia Due to underlying metastatic gallbladder carcinoma with liver metastases platelets stable seen by hematology, goal to keep platelets above 40 - can consider TPO agents such as romiplostim as outpatient if her platelets do not stabilize Hypokalemia resolved with replacement HX pulmonary embolism Patient not on anticoagulation secondary to GI bleed. s/p IVC filter on last admission DVT prophylaxis: SCD boots Code status: Full code Quality Stroke Does the patient have a stroke diagnosis?: No VTE Prior VTE?: No VTE Risk Level:: Medical - moderate - high VTE Device Contraindication: N/A - Device Ordered VTE Drug Contraindication: Treatment Not Indicated
[2025-02-05 12:26] VITALS: BP 113/60; PULSE 92; RESP 18; TEMP 37.1; O2SAT 96
[2025-02-05 15:51] VITALS: BP 147/64; PULSE 90; RESP 18; TEMP 37.1; O2SAT 96
--- NOTE | 2025-02-05 16:26 | PC.NURSE ---
pt refusing to go down to CT scan. states that she has gotten several in the past few weeks and to go look at the results in the computer they all say the same thing. This RN attempted to educate pt on need for the scan d/t increasing SOB , pt stated id rather lie here and not go. Yamile Cates NP notified. no response from provider and no new orders at this time.
[2025-02-05 19:00] VITALS: BP 131/68; PULSE 104; RESP 16; TEMP 37.1; O2SAT 97
[2025-02-05 23:34] VITALS: BP 125/63; PULSE 104; RESP 18; TEMP 37.6; O2SAT 96
[2025-02-06 03:14] VITALS: BP 146/65; PULSE 101; RESP 16; TEMP 37.8; O2SAT 96
[2025-02-06] MEDS: Omeprazole 20 MG CAPSULE.DR PO ×2 (05:32→15:38)
[2025-02-06] MEDS: Simethicone 80 MG TAB.CHEW PO (07:40)
[2025-02-06] MEDS: Milk of Magnesia 30 ML ORAL.SUSP PO (07:40)
[2025-02-06] MEDS: Ferrous Sulfate 324 MG TABLET.DR PO (07:40)
[2025-02-06] MEDS: Sucralfate 1 GM TABLET PO ×2 (07:40→15:38)
[2025-02-06] MEDS: 0.9 % Sodium Chloride Flush 3 ML SYRINGE IVFLUSH (07:41)
[2025-02-06 08:04] VITALS: BP 132/72; PULSE 102; RESP 18; TEMP 37; O2SAT 96
[2025-02-06 09:05] LABS: Hematocrit 28.1 % (37.0-47.0); Hemoglobin 9.7 g/dl (12.0-16.0)
--- NOTE | 2025-02-06 09:46 | P.PNIM_ITS ---
Subjective Subjective Date of Service: 02/06/25 Interval History: seen and examined this morning follow up for anemia reports constipation Review of Systems Review of Systems: Yes all other systems are reviewed and are negative Constitutional Constitutional: Denies chills and Denies fever(s) ENT Ears, Nose, Mouth, and Throat: Denies dizziness Cardiovascular Cardiovascular: Denies chest pain and Denies palpitations Respiratory Respiratory: Denies cough Neurologic Neurologic: Denies dizziness Endocrine Endocrine: Denies palpitations Physical Exam 2 Vital Signs: Vital Signs: Last Vital Signs Temp 98.6 F 02/06/25 08:04 Pulse 102 H 02/06/25 08:04 Resp 18 02/06/25 08:04 BP 132/72 02/06/25 08:04 Pulse Ox 96 02/06/25 08:04 O2 Del Method Room Air 02/06/25 08:04 O2 Flow Rate 6 02/03/25 12:42 BMI result Body Mass Index 31.9 Appearing in no acute distress lung sounds are clear to auscultation heart regular rate rhythm, clear S1, S2 positive bowel sounds, abdomen is soft, nontender neuro patient is alert x3, no focal deficits Objective Data Active Medications Acetaminophen (Acetaminophen 325 Mg Tablet) 650 mg PO Q6H PRN PRN Reason: Pain, Mild 1-3,fever,headache Calcium Carbonate (Calcium Carbonate 750 Mg Tab.Chew) 750 mg PO Q4H PRN PRN Reason: Heartburn Ferrous Sulfate (Ferrous Sulfate 324 Mg Tablet.) 324 mg PO BID [facility] Last Admin: 02/06/25 07:40 Dose: 324 mg Documented By: NICOLE Levofloxacin (Levofloxacin 750 Mg Tablet) 750 mg PO Q24H [facility] Magnesium Citrate (Magnesium Citrate 300 Ml Solution) 300 ml PO ONCE ONE Stop: 02/06/25 09:44 Magnesium Hydroxide (Milk Of Magnesia 30 Ml Oral.Susp) 30 ml PO DAILY PRN PRN Reason: Constipation Last Admin: 02/06/25 07:40 Dose: 30 ml Documented By: NICOLE Melatonin (Melatonin 3 Mg Tablet) 6 mg PO BEDTIME PRN PRN Reason: Insomnia Last Admin: 02/03/25 19:53 Dose: 6 mg Documented By: TIFFANIE Omeprazole (Omeprazole 20 Mg Capsule.) 20 mg PO BID@0630,1630 [facility] Last Admin: 02/06/25 05:32 Dose: 20 mg Documented By: MARIELENA Simethicone (Simethicone 80 Mg Tab.Chew) 80 mg PO QIDWMHS PRN PRN Reason: Gas Last Admin: 02/06/25 07:40 Dose: 80 mg Documented By: NCIOLE Sodium Chloride (0.9 % Sodium Chloride Flush 3 Ml Syringe) 3 ml IVFLUSH QSHIFT [facility] Last Admin: 02/06/25 07:41 Dose: 3 ml Documented By: NICOLE Sucralfate (Sucralfate 1 Gm Tablet) 1 gm PO BIDAC [facility] Last Admin: 02/06/25 07:40 Dose: 1 gm Documented By: NICOLE Labs 02/06/25 08:49 02/04/25 09:04 Assessment and Plan (1) Acute anemia: Status: Acute Plan 64-year-old female with a past medical history of metastatic breast cancer status post chemo/radiotherapy/surgery, metastatic gallbladder cancer-completed chemotherapy; history of partial hepatectomy, cholecystectomy, lumpectomy; CAD, arthritis, neuropathy, GERD, pulmonary embolism-not on anticoagulation secondary to GI bleed; recent admission to the hospital last week of December for acute anemia secondary to GI blood loss-diagnosed gastric antral vascular ectasia; acute on chronic thrombocytopenia; received blood transfusions and subsequently discharged home on 01/31/2025; presented to the hospital today with a chief complaint of generalized weakness. Noted acute on chronic anemia. Admitted for further management. 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 repeat EGD 02/03 showing ulcerated mucosal areas from prior APC with mild oozing, duodenal bulb with area of oozing with duodenitis status post clip and hemo spray s/p 3 units of PRBC, 1 unit of platelets, 1 unit of FFP with appropriate rise in H/H H/H stable continue sucralfate 1 g b.i.d., ppi po iron advance to full diet chronic thrombocytopenia Due to underlying metastatic gallbladder carcinoma with liver metastases platelets stable seen by hematology, goal to keep platelets above 40>can consider TPO agents such as romiplostim as outpatient if her platelets do not stabilize Hypokalemia resolved with replacement HX pulmonary embolism Patient not on anticoagulation secondary to GI bleed. s/p IVC filter on last admission DVT prophylaxis: SCD boots Code status: Full code Quality Stroke Does the patient have a stroke diagnosis?: No VTE Prior VTE?: No VTE Risk Level:: Medical - moderate - high VTE Device Contraindication: N/A - Device Ordered VTE Drug Contraindication: Treatment Not Indicated
[2025-02-06 10:11] LABS: Platelet Count 46 X10*3/uL (160-400)
[2025-02-06] MEDS: levoFLOXacin 750 MG TABLET PO (10:15)
[2025-02-06] MEDS: Magnesium Citrate 300 ML SOLUTION PO (10:15)
[2025-02-06 11:03] LABS: White Blood Count 12.5 X10*3/uL (4.8-10.8)
[2025-02-06 12:10] VITALS: BP 140/66; PULSE 106; RESP 18; TEMP 36.7; O2SAT 99
--- NOTE | 2025-02-06 13:23 | P.DS_ITS ---
DS: Providers Provider Date of Service: 02/06/25 Date of admission: 02/02/25 22:03 Date of discharge: 02/06/25 Primary care physician: Adria Rubio MD Consults: 02/02/25 22:03 Consult to Gastroenterology Routine Consulting Provider: David Taylor Reason for consultation: GI bleed 02/02/25 22:07 Consult to Hematology / Oncology Routine Consulting Provider: [facility] [place]ology Reason for consultation: pancytopenia; p/w GI bleed DS: Diagnosis Discharge Diagnosis (1) Acute anemia: Status: Acute DS: Summary Hospital Course Hospital Course: History and physical as per admitting provider. 64-year-old female with a past medical history of metastatic breast cancer status post chemo/radiotherapy/surgery, metastatic gallbladder cancer-completed chemotherapy; history of partial hepatectomy, cholecystectomy, lumpectomy; CAD, arthritis, neuropathy, GERD, pulmonary embolism-not on anticoagulation secondary to GI bleed; recent admission to the hospital last week of December for acute anemia secondary to GI blood loss-diagnosed gastric antral vascular ectasia; acute on chronic thrombocytopenia; received blood transfusions and subsequently discharged home on 01/31/2025; presented to the hospital today with a chief complaint of generalized weakness. Patient reports that over the past 2 days she has been having generalized weakness and tiredness. Has been having shortness of breath and dyspnea on exertion. Has decreased appetite. Reports he feels generally unwell. Denies any fevers and chills. Denies any cough or sputum production. Denies any urinary symptoms. Denies any gross signs of bleeding. Review of all other systems is negative except mentioned above ER course: Per ER physician, patient's exam was grossly nonfocal; benign abdominal exa mination; on labs noted to have hemoglobin of 5.9 compared to 8.1 at the time of discharge. Platelets noted to be 38. Patient being ordered for 3 units of PRBC, 1 unit of platelets, 1 unit of FFP. SOB . no hypoxia . refused chest CT . cxr showed atelect vs infilatrate. 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, repeat EGD 02/03 showing ulcerated mucosal areas from prior APC with mild oozing, duodenal bulb with area of oozing with duodenitis status post clip and hemo spray, s/p 3 units of PRBC, 1 unit of platelets, 1 unit of FFP with appropriate rise in H/H, continue sucralfate 1 g b.i.d., ppi po iron chronic thrombocytopenia, Due to underlying metastatic gallbladder carcinoma with liver metastases, platelets stable, seen by hematology, goal to keep platelets above 40>can consider TPO agents such as romiplostim as outpatient Hypokalemia resolved with replacement HX pulmonary embolism, Patient not on anticoagulation secondary to GI bleed. s/p IVC filter on last admission Time Attestation Discharge Coordination Time (in mins): 42 Quality: Safe Use of Opioids Does Pt have an Active Cancer Diagnosis on the Problem List?: No Quality: Stroke Does the patient have a stroke diagnosis?: No Physical Exam Vital Signs: Vital Signs: Last Vital Signs Temp 98.0 F 02/06/25 12:10 Pulse 106 H 02/06/25 12:10 Resp 18 02/06/25 12:10 BP 140/66 H 02/06/25 12:10 Pulse Ox 99 02/06/25 12:10 O2 Del Method Room Air 02/06/25 12:10 O2 Flow Rate 6 02/03/25 12:42 BMI result Body Mass Index 31.9 Appearing in no acute distress head is normocephalic atraumatic eyes pupils are PERRLA sclera is anicteric mouth throat mucous membranes are intact and moist neck is supple no lymphadenopathy, no JVD noted lung sounds are clear to auscultation heart regular rate rhythm, clear S1, S2 positive bowel sounds, abdomen is soft, nontender neuro patient is alert x3, no focal deficits DS: Data Data Completed and Pending Completed studies during hospitalization [Text1]: Procedures Control Bleeding in Gastrointestinal Tract, Via Natural or Artificial Opening Endoscopic (01/25/25) Insertion of Intraluminal Device into Inferior Vena Cava, Percutaneous Approach (01/25/25) Introduction of Mineral-based Topical Hemostatic Agent into Upper GI, Via Natural or Artificial Opening Endoscopic, [employer] 6 (01/25/25) Transfusion of Nonautologous Platelets into Peripheral Vein, Percutaneous Approach (01/25/25) Transfusion of Nonautologous Red Blood Cells into Peripheral Vein, Percutaneous Approach (01/25/25) Labs on day of discharge: Laboratory Results - last 24 hr 02/06/25 08:49 WBC 12.5 H Hgb 9.7 L Hct 28.1 L Plt Count 46 L Discharge Plan Discharge Anticipated Discharge Date/Time: 02/06/25 13:07 Patient Disposition: Home Health Service Discharge Diagnosis: Acute on chronic blood-loss anemia Chronic thrombocytopenia Hypokalemia Referrals: [facility] [Outside] - 1 Week Adria Rubio MD [Primary Care Provider] - 1 Week Xavier Doan MD [Physician] - 1 Week Discharge Medications: New levofloxacin 750 mg Tablet 750 mg PO Q24H Qty: 4 0RF Continued cholecalciferol (vitamin D3) 25 mcg (1,000 unit) tablet 25 mcg PO DAILY Qty: 90 3RF exemestane [Aromasin] 25 mg Tablet 25 mg PO DAILY Qty: 30 3RF Rx Instructions: must administer after a meal Tab-A-Marissa Multivitamin w-iron 15 mg iron- 400 mcg tablet 1 tab PO DAILY clotrimazole-betamethasone 1-0.05 % cream 1 appl topical DAILY pantoprazole 40 mg tablet,delayed release (DR/EC) 40 mg PO BID Qty: 180 0RF ferrous sulfate 324 mg (65 mg iron) tablet,delayed release (DR/EC) 324 mg PO BID Qty: 180 0RF sucralfate 1 gram tablet 1 g PO BIDAC (DME) bath stole See Rx Instructions .Route .MEDSUPPLY Qty: 1 0RF Rx Instructions: As directed (DME) compression stockings medium See Rx Instructions .Route .MEDSUPPLY Qty: 1 0RF Rx Instructions: As directed (DME) walker with seat See Rx Instructions .Route .MEDSUPPLY Qty: 1 0RF Rx Instructions: As directed Discharge Orders: Discharge Order (Routine); Ordered 02/06/25 Ordered By: Yamile Lane Diet: Advance to usual diet Activity on Discharge: As tolerated Stand Alone Forms: Patient Portal Discharge page Print Language: Portuguese Other Ambulatory Orders: Complete Blood Count no Diff (Routine) Timeframe: 2 Days Facility: [facility] - Location: Laboratory Ordered By: Yamile Lane Care Plan Goals: Complete antibiotic therapy for pneumonia Health Concerns: Acute on chronic blood-loss anemia Chronic thrombocytopenia Hypokalemia Plan of Treatment: Follow up with primary care provider as needed Take all medications as prescribed Follow up with Oncology for further recommendation of anemia Assessment: See discharge summary Patient Instructions: Levofloxacin (By mouth), Blood Transfusion Discharge Instructions
--- NOTE | 2025-02-06 13:25 | MHC.CM.PN ---
Patient has been medically cleared for dc to home today, with services. Patient is active with NA, who has been notified of today's dc.
== END 2025-02-06 16:51 | disposition home health service (06) | DRG 241 ==
LOC: HO.ED 21:54 → HO.EDOVER 22:32 → HO.IMC 02-03 07:21
PROVIDERS: Internal Medicine Gastroenterology; Physician Assistant Medical; Admitting Provider Hospitalist; Emergency Provider Emergency Medicine Emergency Medical Services; PCP Internal Medicine; Visit Provider Nurse Practitioner Acute Care
PROC: 0DJ08ZZ Inspection of Upper Intestinal Tract, Via Natural or Artificial Opening Endoscopic (ICD-10-PCS; CPT 43235; principal; 2025-02-03 14:30)
DX: K29.81 Duodenitis with bleeding (principal); C23 Malignant neoplasm of gallbladder; D62 Acute posthemorrhagic anemia; C78.7 Secondary malignant neoplasm of liver and intrahepatic bile duct; D69.59 Other secondary thrombocytopenia; D63.0 Anemia in neoplastic disease; E87.6 Hypokalemia; K31.811 Angiodysplasia of stomach and duodenum with bleeding; Z86.711 Personal history of pulmonary embolism; Z79.899 Other long term (current) drug therapy
CPT/HCPCS: 36415; 71045; 80048; 80053; 83880; 84484; 85014; 85018; 85025; 85027; 85049; 86850; 86900; 86901; 86923; 93005; 99285; J1100; J2003; J2405; J2470; J2704; J7120; P9016; P9017; P9073; Q9968

== ENCOUNTER → 2025-02-02 18:05 | Outpatient (BNV) | payer OTHER, SELFPAY | PROVIDERS: Admitting Provider Hospitalist; Emergency Provider Emergency Medicine Emergency Medical Services; PCP Internal Medicine; Visit Provider Internal Medicine | DX: R06.02 Shortness of breath (principal) | CPT/HCPCS: 93010 ==

== ENCOUNTER 2025-02-02 22:03 | Outpatient (BNV) | payer OTHER, SELFPAY | END 2025-02-05 11:35 | PROVIDERS: Admitting Provider Hospitalist; Emergency Provider Emergency Medicine Emergency Medical Services; PCP Internal Medicine; Visit Provider Radiology Diagnostic Radiology | DX: J98.11 Atelectasis (principal) | CPT/HCPCS: 71045 ==

== ENCOUNTER → 2025-02-02 22:03 | Outpatient (BNV) | payer OTHER, SELFPAY | PROVIDERS: Admitting Provider Hospitalist; Emergency Provider Emergency Medicine Emergency Medical Services; PCP Internal Medicine; Visit Provider Internal Medicine | DX: D64.9 Anemia, unspecified (principal) | CPT/HCPCS: 99222 ==

== ENCOUNTER → 2025-02-02 22:03 | Outpatient (BNV) | payer OTHER, SELFPAY | PROVIDERS: Admitting Provider Hospitalist; Emergency Provider Emergency Medicine Emergency Medical Services; PCP Internal Medicine; Visit Provider Internal Medicine Gastroenterology | DX: D64.9 Anemia, unspecified (principal); K29.01 Acute gastritis with bleeding; K29.81 Duodenitis with bleeding | CPT/HCPCS: 43255; 99223 ==

== ENCOUNTER → 2025-02-02 22:03 | Outpatient (BNV) | payer OTHER, SELFPAY | PROVIDERS: Admitting Provider Hospitalist; Emergency Provider Emergency Medicine Emergency Medical Services; PCP Internal Medicine; Visit Provider Physician Assistant Medical | DX: D64.9 Anemia, unspecified (principal) | CPT/HCPCS: 99223; 99232; 99499 ==

== ENCOUNTER 2025-02-09 12:28 | Outpatient (AMB) | payer OTHER, SELFPAY ==
--- NOTE | 2025-02-09 12:29 | MHC.PC.OV ---
Vital Signs 02/09/25 12:36 Height 5 ft 2 in Weight 165 lb BMI 30.2 BP 134/64 Blood Pressure Location Rt brachial Position Sitting Respiration 16 Pulse 107 H Pulse Source Pulse Oximeter Temp 97.8 F Temp Source Oral Intake Visit Reasons: [facility] Allergies Penicillins [PENICILLINS] Allergy (Severe, Verified 02/02/25 18:03) ANAPHYLAXIS, swelling streptomycin [STREPTOMYCIN] Allergy (Severe, Verified 02/02/25 18:03) ANAPHYLAXIS Medication List - Last Reconciled 02/09/25 by Adria Rubio MD [bath stole As directed] cholecalciferol (vitamin D3) 25 mcg PO DAILY clotrimazole-betamethasone 1-0.05 % 1 appl topical DAILY [compression stockings As directed] exemestane (Aromasin) 25 mg PO DAILY ferrous sulfate 324 mg PO BID levofloxacin 750 mg PO Q24H pantoprazole 40 mg PO BID sucralfate 1 g PO BIDAC [walker with seat As directed] Tobacco use date assessed: 02/09/25 Dental Screening Dental Screen Date: 02/02/25 Did you have a dental visit in the last 12 months?: Yes Did you have a dental problem in the last 6 months where you did not have access to dental care?: No Was dental information given to patient?: Patient has dentist HPI [facility] HPI Details Patient is 64-year-old female with metastatic gallbladder cancer With multiple emergency room visits due to severe anemia Currently established with Oncology [facility] Last emergency room visit dated 02/06/2025 She has a history of metastatic breast cancer status post chemo/radiotherapy/surgery, history of partial hepatectomy, cholecystectomy , coronary artery disease, multiple joint arthritis, neuropathy, GERD, DVT with pulmonary embolism due to noncompliance with anticoagulation now have vena caval filter Was admitted in December for acute anemia secondary to GI blood loss diagnosed gastric antral vascular ectasia, acute on chronic thrombocytopenia Was discharged on 01/31/2025 She was seen in office after that and CBC was repeated and found to have a very low hemoglobin count of 5.9 Patient was directed back to the emergency room She was given 3 units of packed RBCs and 1 unit of fresh frozen plasma due to platelet count pain [address] scan of chest, chest x-ray showed atelectasis versus infiltrate Started Levaquin for presumed pneumonia for 5 days Patient had EGD 02/03/2025 showed ulcerated mucosal area with mild oozing, duodenal bulb with area of oozing with duodenitis, status post clip Currently on Carafate 1 g b.i.d. and PPI At discharge her hemoglobin was 9.7 hematocrit 28.1 She came in today for follow-up after visiting the emergency room We will be repeating the CBC again today Patient has been having severe swelling of her ankles And is requesting medication to get rid of extra fluid Her blood pressure is stable I have sent frusemide 20 mg tablets that she may take every other day as needed Bloating is much better with Gas-X she is requesting refill which I have sent And vitamin-D supplement sent as well Patient has appointment with Dr. Ibarra coming up next week Standing order for CBC also placed Review of Systems - General: No fever no chills - Neurological: No headaches no dizziness - Ear nose throat: No sore throat no hearing difficulty no ear pain - Cardiovascular: No syncope, no chest pain, no palpitations - Gastrointestinal: No nausea vomiting or diarrhea Physical Exam - General: No acute distress , pale looking female - HEENT: No acute findings - Neck: Supple - Respiratory system: Able to talk in full sentences, no audible wheeze - Cardiovascular: S1-S2 regular in rate and rhythm - Gastrointestinal: No pain - Extremities: 2+ edema both ankles - COIL FINISHER: Alert awake oriented x3 motor sensory intact - Skin: Normal turgor PFSH Medical History Chemotherapy-induced neuropathy Metastatic cholangiocarcinoma DVT (deep venous thrombosis) Metastatic disease Metastatic cancer to liver Pulmonary embolism Metastasis from gallbladder cancer Pulmonary embolism Pulmonary nodules Pneumonitis Chest pain Chronic cough Vaginal yeast infection Breast lump on right side at 5 o'clock position History of colon polyps Breast cancer, left (~10/2016) Spondylosis Back pain Neuropathy Surgical History Hx of cholecystectomy History of esophagogastroduodenoscopy (EGD) History of lumpectomy of right breast (06/26/22) Hx of vein stripping Hx of colonoscopy (~10/2018) S/P breast lumpectomy Family History Mother No problems noted. Father No problems noted. Other No family history of cancer Social History Household Members: Children Household Members Other:: currently lives with her son Housing: House Are you a primary acute care surgeon to a significant other at home: No Do you presently have visiting nurse or other home services: Yes Unable to assess alcohol history related to: Unknown Alcohol intake: never Comment: med with oxycodone 5 mg po in PACU Patient Tobacco Use Status: Never used Tobacco e-Cigarette/Vaping Use: Never Used Second Hand Smoke Exposure: No service: No Current occupational status: disabled Current occupation: rt handed Cognitive needs: No Hearing needs: No Vision needs: Yes Female Reproductive History Menstrual Age of Menarche: 15 Questionnaire Thrive Questionnaire Date Thrive assessed: 02/02/25 I am a: Patient What is your living situation today?: I choose not to answer this question Within the past 12 months, did the food you bought not last and you didn't have the money to get more?: I choose not to answer this question Within the past 12 months, did you worry whether your food would run out before you got money to buy more?: I choose not to answer this question Do you have trouble paying for medicines?: I choose not to answer this question Do you have trouble getting transportation to medical appointments?: Yes Do you have trouble paying your heating and electricity bill?: I choose not to answer this question Do you have trouble taking care of your child, family member or friend?: I choose not to answer this question Do you have trouble with day-to-day activities such as bathing, preparing meals, shopping, managing finances, etc.?: I choose not to answer this question Are you currently unemployed and looking for a job?: I choose not to answer this question Are you interested in more education?: I choose not to answer this question Please select the resources that you would like help with: None Currently or been in a relationship where the following occur: I choose not to answer THRIVE Score: 1 INOCENCIO-7 AMB Questionnaire INOCENCIO-7 Date INOCENCIO - 7 assessed: 12/08/24 Feeling nervous, anxious, or on edge: 3 = Nearly every day Not being able to stop or control worryin = More than half the days Worrying too much about different things: 2 = More than half the days Trouble relaxin = More than half the days Being so restless that it is hard to sit still: 1 = Several days Becoming easily annoyed or irritable: 1 = Several days Feeling afraid as if something awful might happen: 1 = Several days Total INOCENCIO-7 score (0-4 normal; 5-9 mild; 10-14 moderate; 15-21 severe): 12 Source: Developed by Drs. Andi Kim, Ashley Watson, Donovan Jones and colleagues, with an educational erji from [employer] Physical exam (Primary Care) BMI result Body Mass Index 30.2 Tobacco/Smoking Status: Tobacco use Status Tobacco use date assessed 02/02/25 02/09/25 12:32 Patient Tobacco Use Status Never used Tobacco 02/09/25 12:32 e-Cigarette/Vaping Use Never Used 02/09/25 12:32 Thrive Assessment: Date of Thrive Assessment Date Thrive assessed 02/02/25 02/09/25 12:32 Currently or been in a relationship where the following occur: I choose not to answer Coding Level of Care Code Est Pt Level 4 (86984) Diagnoses Seen in emergency room Z76.89 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 C23 Gastrointestinal hemorrhage, unspecified gastrointestinal hemorrhage type K92.2 GI bleed type/associated pathology: unspecified gastrointestinal hemorrhage type Failure to thrive in adult R62.7 Thrombocytopenia D69.6 Weakness R53.1 Loss of appetite R63.0 Assessment & Plan Assessment & Plan (1) Seen in emergency room: Code(s): Z76.89 - Persons encountering health services in other specified circumstances Category: Medical (2) 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: Code(s): C23 - Malignant neoplasm of gallbladder Category: Medical (3) GIB (gastrointestinal bleeding): Code(s): K92.2 - Gastrointestinal hemorrhage, unspecified Category: Medical Qualifiers: GI bleed type/associated pathology: unspecified gastrointestinal hemorrhage type Qualified Code(s): K92.2 - Gastrointestinal hemorrhage, unspecified (4) Failure to thrive in adult: Code(s): R62.7 - Adult failure to thrive Category: Medical (5) Thrombocytopenia: Code(s): D69.6 - Thrombocytopenia, unspecified Category: Medical (6) Weakness: Code(s): R53.1 - Weakness Category: Medical (7) Loss of appetite: Code(s): R63.0 - Anorexia Category: Medical Plan Patient is 64-year-old female with metastatic gallbladder cancer With multiple emergency room visits due to severe anemia Currently established with Oncology [facility] Last emergency room visit dated 02/06/2025 She has a history of metastatic breast cancer status post chemo/radiotherapy/surgery, history of partial hepatectomy, cholecystectomy , coronary artery disease, multiple joint arthritis, neuropathy, GERD, DVT with pulmonary embolism due to noncompliance with anticoagulation now have vena caval filter Was admitted in December for acute anemia secondary to GI blood loss diagnosed gastric antral vascular ectasia, acute on chronic thrombocytopenia Was discharged on 01/31/2025 She was seen in office after that and CBC was repeated and found to have a very low hemoglobin count of 5.9 Patient was directed back to the emergency room She was given 3 units of packed RBCs and 1 unit of fresh frozen plasma due to platelet count pain [address] scan of chest, chest x-ray showed atelectasis versus infiltrate Started Levaquin for presumed pneumonia for 5 days Patient had EGD 02/03/2025 showed ulcerated mucosal area with mild oozing, duodenal bulb with area of oozing with duodenitis, status post clip Currently on Carafate 1 g b.i.d. and PPI At discharge her hemoglobin was 9.7 hematocrit 28.1 She came in today for follow-up after visiting the emergency room We will be repeating the CBC again today Patient has been having severe swelling of her ankles And is requesting medication to get rid of extra fluid Her blood pressure is stable I have sent frusemide 20 mg tablets that she may take every other day as needed Bloating is much better with Gas-X she is requesting refill which I have sent And vitamin-D supplement sent as well Patient has appointment with Dr. Ibarra coming up next week Standing order for CBC also placed Orders: Orders Complete Blood Count Auto Diff Today C23 - Malignant neoplasm of gallbladder, D69.6 - Thrombocytopenia, unspecified, K92.2 - Gastrointestinal hemorrhage, unspecified, R53.1 - Weakness, R62.7 - Adult failure to thrive, R63.0 - Anorexia Complete Blood Count Auto Diff 3 Days R53.1 - Weakness Complete Blood Count Auto Diff 7 Days K92.2 - Gastrointestinal hemorrhage, unspecified Medications: New furosemide (Lasix) 20 mg PO Q OTHER DAY 30 days 15 tabs 0RF Changed From cholecalciferol (vitamin D3) 25 mcg PO DAILY 190 caps 0RF To cholecalciferol (vitamin D3) 25 mcg PO DAILY 90 days 90 caps 1RF Refilled simethicone (Gas Relief (simethicone)) 125 mg PO BID-QID 10 days PRN 30 tabs 2RF abdominal distention
[2025-02-09 12:36] VITALS: BP 134/64; PULSE 107; RESP 16; TEMP 36.6; BMI 30.2
--- OUTSIDE RECORDS SUMMARY | 2025-02-09 13:56 | XMS_ITS | Clinical Summary ---
Author Organization [facility] Address [address] [place] [address] Care Team Providers Care Barrel Leveler Name Role Phone Adria Rubio MD Primary Care Provider [phone] Allergies Active Allergy Reactions Criticality Noted Date [...] Diagnosed Date Rotator cuff tendonitis 09/30/2024 Sacroiliitis ([facility]24) 09/30/2024 Segmental and somatic dysfunction of sacral tiki on 09/30/2024 Chronic pain of right hip 09/30/2024 Greater trochanteric bursitis 09/30/2024 Lumbar spondylosis 06/30/2024 Back pain 06/30/2024 Malignant neoplasm of left b reast ([facility] V24, [facility] V28) 06/30/2024 Chest pain 06/30/2024 Chronic cough 06/30/2024 History of colon polyps 06/30/2024 Neuropathy 06/30/2024 Pneumonitis 06/30/2024 Pulmonary embolism ([facility] V24, [facility] V28) Pulmonary nodules 06/30/2024 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[facility] V24, [facility] V28) Cancer [...] History Medical History Date Comments Breast cancer ([facility] V24, [facility] V28[facility] Clotting disorder ([facility] V24) Family [...] patient's age to complete this topic Insurance [facility] [place] [address] MEDICAID - [place] Care Teams Barrel Leveler Relationship Specialty Start Date End Date Adria Rubio MD [address] [place] [phone] PCP - General Internal Medicine 08/04/24
== END 2025-02-09 13:57 | disposition home or self-care (01) ==
LOC: HO.HMCC 12:28
PROVIDERS: PCP Internal Medicine; Visit Provider Internal Medicine
DX: Z76.89 Persons encountering health services in other specified circumstances (principal); C23 Malignant neoplasm of gallbladder; K92.2 Gastrointestinal hemorrhage, unspecified; R62.7 Adult failure to thrive; D69.6 Thrombocytopenia, unspecified; R53.1 Weakness; R63.0 Anorexia

== ENCOUNTER 2025-02-09 12:28 | Outpatient (REF) | payer OTHER, SELFPAY ==
[2025-02-09 17:06] LABS: Ferritin 1949 ng/mL (10-250)
== END 2025-02-09 12:29 | disposition home or self-care (01) ==
LOC: HO.HMGCLDS 12:28
PROVIDERS: PCP Internal Medicine; Visit Provider Internal Medicine
DX: Z76.89 Persons encountering health services in other specified circumstances (principal); D64.9 Anemia, unspecified; K92.2 Gastrointestinal hemorrhage, unspecified; C23 Malignant neoplasm of gallbladder; D69.6 Thrombocytopenia, unspecified; R53.1 Weakness; R63.0 Anorexia; Z85.3 Personal history of malignant neoplasm of breast; Z86.711 Personal history of pulmonary embolism; Z86.718 Personal history of other venous thrombosis and embolism; Z95.828 Presence of other vascular implants and grafts; Z92.21 Personal history of antineoplastic chemotherapy; Z92.3 Personal history of irradiation
CPT/HCPCS: 36415; 82728; 85025; 99212

== ENCOUNTER 2025-02-15 11:02 | Outpatient (AMB) | payer OTHER, SELFPAY ==
[2025-02-15 11:00] VITALS: BMI 30.2
--- NOTE | 2025-02-15 11:00 | MHC.OFFVIS ---
Vital Signs 02/15/25 11:00 Height 5 ft 2 in Weight 165 lb BMI 30.2 Intake Visit Reasons: IVC site pain and swelling Intake Note: follow up IVF filter placement 01/27/25. Pt states increase in pain & burning in bilateral LE. worse than before. Cathode Washer Required: No Accompanied by: daughter in law Allergies Penicillins [PENICILLINS] Allergy (Severe, Verified 02/15/25 12:06) ANAPHYLAXIS, swelling streptomycin [STREPTOMYCIN] Allergy (Severe, Verified 02/15/25 12:06) ANAPHYLAXIS HPI HPI IVC site pain and swelling: Details: Very complex 64-year-old female presents for evaluation regarding pain of the lower extremities. She does have a past medical history of breast cancer diagnosed in 2015. Along with metastatic gallbladder carcinoma with Mets to the liver diagnosed in September of 2024. Of note she did have a recent pulmonary embolism on 12/30/2024 and was started on anticoagulation after that. She had come into the hospital with anemia with a hemoglobin down to 5.1 and at that time an IVC filter was placed. At the current time she does complain of lower extremity neuropathy and generalized weakness. She presented to us for re-evaluation. She complains of discomfort in bilateral lower extremities. No discomfort at the puncture site. COUNTS INCLUDE 234 BEDS AT THE [facility] Medical History Chemotherapy-induced neuropathy Metastatic cholangiocarcinoma DVT (deep venous thrombosis) Metastatic disease Metastatic cancer to liver Pulmonary embolism Metastasis from gallbladder cancer Pulmonary embolism Pulmonary nodules Pneumonitis Chest pain Chronic cough Vaginal yeast infection Breast lump on right side at 5 o'clock position History of colon polyps Breast cancer, left (~10/2016) Spondylosis Back pain Neuropathy Surgical History Hx of cholecystectomy History of esophagogastroduodenoscopy (EGD) History of lumpectomy of right breast (06/26/22) Hx of vein stripping Hx of colonoscopy (~10/2018) S/P breast lumpectomy Family History Mother No problems noted. Father No problems noted. Other No family history of cancer Social History Household Members: Children Household Members Other:: currently lives with her son Housing: House Are you a primary hospice care transitions coordinator to a significant other at home: No Do you presently have visiting nurse or other home services: Yes Unable to assess alcohol history related to: Unknown Alcohol intake: never Comment: med with oxycodone 5 mg po in PACU Patient Tobacco Use Status: Never used Tobacco e-Cigarette/Vaping Use: Never Used Second Hand Smoke Exposure: No service: No Current occupational status: disabled Current occupation: rt handed Cognitive needs: No Hearing needs: No Vision needs: Yes Female Reproductive History Menstrual Age of Menarche: 15 Review of Systems Const All systems reviewed & are unremarkable except as noted in HPI and below Reports no additional complaints ENT Reports Normal hearing present Card Denies chest pain, Denies chest pain at rest, Denies chest pain with activity and Denies pedal edema Resp Denies cough GI Denies abdominal pain Musc Denies abnormal gait, Denies muscle cramps and Denies radiating pain into limb Skin/Breast Denies skin ulcer and Denies wounds Neuro Reports Normal hearing present and Denies abnormal gait Psych Reports no additional complaints Physical Exam Vital Signs: BMI result Body Mass Index 30.2 Const General: cooperative, healthy appearing and comfortable Orientation/consciousness: oriented to person, oriented to place and oriented to time HEENT Head: Yes normal to inspection Neck Neck: Yes normal visual inspection Carotids: no bruits Chest Chest palpation & inspection: normal inspection of the chest Resp Effort & Inspection: normal respiratory effort and able to speak in complete sentences Auscultation: clear to auscultation bilaterally, no crackles, no rales, no rhonchi and no wheezes Cardio Rate: regular rate Rhythm: regular rhythm Heart sounds: S1 normal heart sound present and S2 normal heart sound present Bruits: no carotid bruits Peripheral pulses: Peripheral pulses 2+ throughout GI Inspection: Yes normal to inspection Skin Wounds: no wounds Hair: normal Neuro General: oriented to person, oriented to place and oriented to time Cranial nerves: Yes CN's II-XII intact bilaterally and Yes Normal hearing present Cognition (Neuro): normal cognition Motor exam (neuro): 5/5 motor strength present throughout Extrem Other: venous exam: +1 edema bilateral lower extremities General: No clubbing, No cyanosis and Yes edema Psych Appearance: grossly normal Mental Status: mental status grossly normal Speech and movement: Normal speech and movement present Assessment & Plan Assessment & Plan (1) Recurrent pulmonary embolism: Code(s): I26.99 - Other pulmonary embolism without acute cor pulmonale Category: Medical Plan: In short I do believe that her lower extremity discomfort is more neuropathic and may be even related to her previous chemotherapy regimen. She has no complications from her filter placement. She was insistent on the potential of removal of her filter. I did explain to her that she would need evaluation by her Hematology-Oncology team stabilization of her hemoglobin and able to tolerate anticoagulants before this was even considered. She will follow up with us on an as-needed basis. She will need to follow up with Hematology-Oncology. Thank you for allowing us to assist in her care. If there are any questions or concerns please do not hesitate to contact us. Coding Level of Care Code Est Pt Level 4 (95653) Diagnoses Recurrent pulmonary embolism I26.99
--- OUTSIDE RECORDS SUMMARY | 2025-02-15 12:38 | XMS_ITS | Clinical Summary ---
Author Organization [facility] Address [address] [place] [address] Care Team Providers Care Heel Buffer Name Role Phone Adria Rubio MD Primary Care Provider [phone] Allergies Active Allergy Reactions Criticality Noted Date [...] Diagnosed Date Rotator cuff tendonitis 09/30/2024 [facility]roiliitis ([facility]) 09/30/2024 Segmental and somatic dysfunction of sacral tiki on 09/30/2024 Chronic pain of right hip 09/30/2024 Greater trochanteric bursitis 09/30/2024 Lumbar spondylosis 06/30/2024 Back pain 06/30/2024 Malignant neoplasm of left b reast ([facility] V24, [facility] V28) 06/30/2024 Chest pain 06/30/2024 Chronic cough 06/30/2024 History of colon polyps 06/30/2024 Neuropathy 06/30/2024 Pneumonitis 06/30/2024 Pulmonary embolism ([facility] V24, [facility] V28) Pulmonary nodules 06/30/2024 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[facility] V24, [facility] V28) Cancer Staging:Pathologic:Stage IIIB(pT2b, [...] History Medical History Date Comments Breast cancer ([facility] V24, [facility] V28) Clotting disorder ([facility] V24) Family History Medical [...] patient's age to complete this topic Insurance [facility] [place] [id number] MEDICA[place] - [place] Care Teams Heel Buffer Relationship Specialty Start Date End Date Adria Rubio MD [address] [place] [phone] PCP - General Internal Medicine 08/04/24
== END 2025-02-15 11:23 | disposition home or self-care (01) ==
LOC: HO.HVS 11:03
PROVIDERS: PCP Internal Medicine; Visit Provider Surgery Vascular Surgery
DX: I26.99 Other pulmonary embolism without acute cor pulmonale (principal)
CPT/HCPCS: 99214

== ENCOUNTER → 2025-02-15 11:02 | Outpatient (BNVA) | payer OTHER, SELFPAY | PROVIDERS: PCP Internal Medicine; Visit Provider Surgery Vascular Surgery | DX: M79.661 Pain in right lower leg (principal); M79.662 Pain in left lower leg; I26.99 Other pulmonary embolism without acute cor pulmonale; R53.1 Weakness | CPT/HCPCS: 99212 ==

== ENCOUNTER 2025-02-15 11:52 | Emergency (ER) | payer OTHER, SELFPAY ==
[2025-02-15] VITALS (8 sets, daily range): BP systolic 128–147; BP diastolic 63–79; PULSE 100–113; RESP 18–32; TEMP 36.1–36.7; O2SAT 99–100; BMI 29.1
--- NOTE | 2025-02-15 11:54 | ECG_ITS ---
Test Reason : CP Blood Pressure : */* mmHG Vent. Rate : 98 BPM Atrial Rate : 98 BPM P-R Int : 152 ms QRS Dur : 68 ms QT Int : 356 ms P-R-T Axes : 10 -18 91 degrees QTcB Int : 454 ms Normal sinus rhythm Minimal voltage criteria for LVH, may be normal variant ( R in aVL ) Septal infarct , age undetermined Abnormal ECG When compared with ECG of 02-Feb-2025 18:11, Septal infarct is now Present Nonspecific T wave abnormality now evident in Lateral leads Referred By: Generic ED Physician Electronically Signed By: Molina Box
--- NOTE | 2025-02-15 12:36 | PC.NURSE ---
Patient A&Ox3. Hx PE (01/23) Patient presents to ED c/o weakness r/t possible abnormal labs. Patient feels dizzy but reports no syncopy or falls. Patient c/o chest pain non radiating rated 9/10. Pain started over the last 2-3 days. Patient reports having abnormal labs Hgb 9.5 and Plt 45. Patient tachypnic at 24, all other VSS and up to date. Blood collected/sent. Plan of care on going.
[2025-02-15 12:50] LABS: MANUAL DIFF FLAG NO
[2025-02-15 12:54] LABS: Basophils Absolute Auto 0.1 X10*3/uL (0.0-0.2); Basophils Percent Auto 0.5 % (0-2); Eosinophils Absolute Auto 0.2 X10*3/uL (0.0-0.4); Eosinophils Percent Auto 1.2 % (0-4); Hematocrit 27.4 % (37.0-47.0); Hemoglobin 9.2 g/dl (12.0-16.0); Imm Gran Pct Auto 0.8 % (0.0-0.4); Lymphocytes Absolute Auto 1.2 X10*3/uL (1.2-4.9); Mean Corpuscular HGB Conc 33.6 g/dl (31.0-35.0); Mean Corpuscular Hemoglobin 33.1 pg (27.0-33.0); Mean Corpuscular Volume 98.6 fL (80.0-98.0); Monocytes Absolute Auto 1.2 X10*3/uL (0.1-1.2); Monocytes Percent Auto 9.2 % (2-11); Neutrophils Absolute Auto 10.1 x10*3/uL (2.0-8.3); Neutrophils Percent Auto 79.3 % (45-73); Red Blood Count 2.78 X10*6/uL (4.20-5.50); White Blood Count 12.7 X10*3/uL (4.8-10.8)
[2025-02-15 12:55] LABS: Platelet Count 30 X10*3/uL (160-400)
[2025-02-15 12:59] LABS: INTERNATIONAL NORM RATIO 1.2 (0.9-1.1)
[2025-02-15 13:06] LABS: Alanine Aminotransferase 90 U/L (0-31); Albumin Level 2.9 g/dL (3.5-5.0); Alkaline Phosphatase 293 U/L (39-117); Anion Gap 13 (12-20); Aspartate Amino Transferase 130 U/L (5-31); Bilirubin Direct 0.7 mg/dL (0.0-0.5); Bilirubin Total 1.2 mg/dL (0.0-1.0); Blood Urea Nitrogen 10 mg/dL (9-16); Calcium 8.4 mg/dL (8.4-10.2); Carbon Dioxide 23 mmol/L (22-29); Chloride 102 mmol/L (96-108); Creatinine Clr Calc Pharmacy 89.2; Estimated Glomerular Filt Rate > 60; Glucose Random 105 mg/dL (60-115); Lipase 24 U/L (8-78); Potassium 3.8 mmol/L (3.3-5.1); Sodium 134 mmol/L (135-145); Total Protein 6.9 g/dL (6.5-8.0)
--- NOTE | 2025-02-15 13:07 | ED_ITS ---
HPI - General Adult General Chief complaint: Recheck/Abnormal Lab/Rx Stated complaint: Chest Pain Time Seen by Provider: 02/15/25 13:01 Source: patient, RN notes reviewed, old records reviewed and other (expect from Dr. Doan) Mode of arrival: ambulatory Limitations: no limitations History of Present Illness ED Provider: Bib HPI narrative: Patient is a 64-year-old female with history of metastatic breast cancer status post chemo/radiotherapy/surgery, metastatic gallbladder cancer-completed chemotherapy; history of partial hepatectomy, cholecystectomy, lumpectomy; CAD, arthritis, neuropathy, GERD, pulmonary embolism-not on anticoagulation secondary to GI bleed; recent admission to the hospital last week referred to the ED by Dr. Doan for worsening anemia, thrombocytopenia. Patient complains of dyspnea and chest pressure, lightheaded. Denies dizziness/room spinning. Dr. Doan expressed concern for PE as patient has history of same and is not currently anticoagulated, however, patient notes that she recently had an IVC filter placed with Dr. Mendez. complaint: shortness of breath Related Data Home Medications ?Medication ?Instructions ?Recorded ?Confirmed clotrimazole-betamethasone 1 1 appl topical DAILY 12/3102/09/25 %-0.05 % topical cream sucralfate 1 gram tablet 1 g PO BIDAC 02/03/25 Previous Rx's ?Medication ?Instructions ?Recorded bath stole #1 ea 01/17/21 compression stockings #1 ea 01/17/21 cholecalciferol (vitamin D3) 25 25 mcg PO DAILY #90 ta bs 10/12/24 mcg (1,000 unit) tablet exemestane 25 mg tablet (Aromasin) 25 mg PO DAILY #30 tabs 01/03/25 ferrous sulfate 324 mg (65 mg 324 mg PO BID #180 tabs 01/31/25 iron) tablet,delayed release pantoprazole 40 mg tablet,delayed 40 mg PO BID #180 ta bs 01/31/25 release walker with seat #1 ea 02/02/25 levofloxacin 750 mg tablet 750 mg PO Q24H #4 tabs 0604/25 cholecalciferol (vitamin D3) 25 25 mcg PO DAILY 90 day s #90 caps 02/09/25 mcg (1,000 unit) capsule furosemide 20 mg tablet (Lasix) 20 mg PO Q OTHER DAY 3 0 days #15 02/09/25 tabs simethicone 125 mg chewable tablet 125 mg PO BID-QID P RN abdominal 02/10/25 (Gas Relief (simethicone)) distention 10 days #30 tabs Shower Chair (Chair, shower) #1 ea 02/11/25 walker #1 ea 02/11/25 levofloxacin 750 mg tablet 750 mg PO DAILY 5 days #5 t abs 02/19/25 Allergies Allergy/AdvReac Type Severity Reaction Status Date / Time Penicillins (PENICILLINS) Allergy Severe ANAPHYLAXIS, Verified 02/15/25 12:06 swelling streptomycin (STREPTOMYCIN) Allergy Severe ANAPHYLAXIS Verified 02/15/25 12:06 Review of Systems 2 Review of Systems: As per HPI Yes all other systems are reviewed and are negative Constitutional: Constitutional: Reports as per HPI [facility] Past Medical History Medical History Chemotherapy-induced neuropathy Metastatic cholangiocarcinoma DVT (deep venous thrombosis) Metastatic disease Metastatic cancer to liver Pulmonary embolism Metastasis from gallbladder cancer Pulmonary embolism Pulmonary nodules Pneumonitis Chest pain Chronic cough Vaginal yeast infection Breast lump on right side at 5 o'clock position History of colon polyps Breast cancer, left (~10/2016) Spondylosis Back pain Neuropathy Surgical History Hx of cholecystectomy History of esophagogastroduodenoscopy (EGD) History of lumpectomy of right breast (06/26/22) Hx of vein stripping Hx of colonoscopy (~10/2018) S/P breast lumpectomy Family History Family History Mother No problems noted. Father No problems noted. Other No family history of cancer Social History Social History Household Members: Children Household Members Other:: currently lives with her son Housing: House Are you a primary health care consultant to a significant other at home: No Do you presently have visiting nurse or other home services: Yes Unable to assess alcohol history related to: Unknown Alcohol intake: never Comment: med with oxycodone 5 mg po in PACU Patient Tobacco Use Status: Never used Tobacco Smoked in Last 30 Days: No e-Cigarette/Vaping Use: Never Used Second Hand Smoke Exposure: No Use of substances other than those prescribed or required for medical reasons: No Advance Directives: Yes Advance Directives Information Provided: Yes Advance Directives on File: No Do you have a plan to hurt others: No Plan Patient : No service: No Current occupational status: disabled Current occupation: rt handed Cognitive needs: No Hearing needs: No Vision needs: Yes Physical Exam ED Vital Signs: Vital Signs - 24 hr 02/15/25 12:06 02/15/25 12:32 02/15/25 17:19 Temperature 96.9 F 96.9 F 97.2 F Pulse Rate 100 100 102 H Respiratory Rate 18 18 20 Blood Pressure 132/67 132/67 128/64 Pulse Oximetry 100 100 99 Oxygen Delivery Method Room Air Room Air Room Air 02/15/25 18:20 02/15/25 18:35 02/15/25 22:08 Temperature 97.2 F 98.1 F 97.9 F Pulse Rate 108 H 105 H 113 H Respiratory Rate 30 H 32 H 22 H Blood Pressure 147/74 H 130/72 147/79 H Pulse Oximetry Oxygen Delivery Method 02/15/25 22:56 02/15/25 23:12 Temperature 97.6 F 97.5 F Pulse Rate 107 H 105 H Respiratory Rate 22 H 20 Blood Pressure 134/63 134/70 Pulse Oximetry Oxygen Delivery Method BMI result Body Mass Index 29.1 Vital signs have been reviewed and appear to be correct. Blood pressure normal. Heart rate normal. Respiratory rate normal. Temperature normal. Oxygen saturation normal. Const General: cooperative, healthy appearing and no acute distress Orientation/consciousness: oriented to person, oriented to place, oriented to time and patient oriented x3 Limitations: no limitations [facility] Head: Yes normocephalic and Yes atraumatic Ears: external ears normal General nose exam: Normal external nose present Face and sinus: Yes face symmetric Mouth: oropharynx normal and moist mucous membranes Throat: Yes uvula midline Eyes Pupils: Equal, round and reactive pupils present Neck Neck: Yes normal visual inspection and Yes supple Resp Effort & Inspection: normal respiratory effort and able to speak in complete sentences Auscultation: clear to auscultation bilaterally Cardio Rate: regular rate Rhythm: regular rhythm Heart sounds: S1 normal heart sound present and S2 normal heart sound present GI Palpation (GI): Soft to palpation and nontender Auscultation: normoactive bowel sounds General: Yes no CVA tenderness Back/Spine/Pelvis Back: no CVA tenderness Skin General skin exam: elasticity normal and turgor normal Neuro General: oriented to person, oriented to place, oriented to time, patient oriented x3, moves all extremities, no focal motor deficits and CN's II-XI intact bilaterally Cranial nerves: Yes Equal, round and reactive pupils present Cognition (Neuro): normal cognition Extrem General: Yes full ROM, Yes no pedal edema and Yes no calf tenderness Psych Mental Status: mental status grossly normal Affect: normal affect Thought process: Normal thought process present Course Reevaluation(s) Reevaluation #1: I Cora Senior PA-C have accepted care of the patient and signed out pending discharge after blood transfusion and platelet infusion Reevaluation #2: Treatment complete, the patient is eager for discharge Time: 00:20 Reevaluation #3: 02/19/25 0911 KAMERON Garza and culture grew over [id number] Klebsiella pneumoniae. Sensitive to cefazolin, cefepime, ceftriaxone, ciprofloxacin, gentamicin, Bactrim. Indeterminate to Macrobid. Resistant to ampicillin. > called and discussed results with patient. Patient has anaphylactic allergy to penicillins. Levofloxacin sent to pharmacy. Medical Decision Making Medical Decision Making MDM Narrative: Patient is a 64-year-old female with history of metastatic breast cancer status post chemo/radiotherapy/surgery, metastatic gallbladder cancer-completed chemotherapy; history of partial hepatectomy, cholecystectomy, lumpectomy; CAD, arthritis, neuropathy, GERD, pulmonary embolism-not on anticoagulation secondary to GI bleed; recent admission to the hospital last week referred to the ED by Dr. Doan for worsening anemia, thrombocytopenia. On exam patient is awake, A+Ox3, VS WNL, afebrile, normal neurological exam without focal deficits, physical exam findings as above. Given reported symptoms and physical exam findings, initial differential includes but is not limited to anemia, thrombocytopenia, electrolyte abnormality, PE. Patient declining CTA chest d/t recent IVC filter placement. Labs notable for mild leukocytosis, anemia, thrombocytopenia, troponin elevated at 60, flat on repeat, likely demand. Case discussed with Dr. Rawls, hospitalist, who does not feel patient requires inpatient admission as she was recently admitted, dyspnea is related to known metastatic cancer, H&H is stable, goal for platelets is above 20. This was discussed with patient and patient is requesting transfusion of platelets and red blood cells prior to discharge home. I feel this is reasonable given that she is symptomatic and has been down trending. Written consent for transfusion obtained. Dr. Doan is comfortable with this plan as well. Patient signed out to KAMERON Talley pending completion of transfusion and likely discharge home. Differential Diagnosis Differential Diagnoses: The differential diagnosis associated with the presentation includes as per [facility] Admission/Observation Consideration of admission/observation: Escalation of care including admission/observation considered Patient would have been admitted to the hospital had their work up had any findings where hospital admission was appropriate and their clinical presentation warranted hospital admission. Consult Healthcare Provider Management of the patient was discussed with: Hospitalist and Technical Expert (Dr. Doan) Lab Data [facility] Lab Attestation statement: I reviewed the patient's lab results. As per [facility] 02/15/25 12:45 02/15/25 12:45 Labs: Lab Results 02/15/25 02/15/25 02/15/25 Range/Units 12:44 12:45 16:02 WBC 12.7 H (4.8-10.8) X10*3/uL RBC 2.78 L (4.20-5.50) X10*6/uL Hgb 9.2 L (12.0-16.0) g/dl Hct 27.4 L (37.0-47.0) % MCV 98.6 H (80.0-98.0) fL MCH 33.1 H (27.0-33.0) pg MCHC 33.6 (31.0-35.0) g/dl RDW 19.0 H (11.0-16.0) % Plt Count 30 L D (160-400) X10*3/uL MPV 14.0 H (9.4-12.3) fL Immature Gran % (Auto) 0.8 H (0.0-0.4) % Neut % (Auto) 79.3 H (45-73) % Lymph % (Auto) 9.0 L (20-40) % [place] % (Auto) 9.2 (2-11) % Eos % (Auto) 1.2 (0-4) % Baso % (Auto) 0.5 (0-2) % Lymph # (Auto) 1.2 (1.2-4.9) X10*3/uL [place] # (Auto) 1.2 (0.1-1.2) X10*3/uL Eos # (Auto) 0.2 (0.0-0.4) X10*3/uL Baso # (Auto) 0.1 (0.0-0.2) X10*3/uL Abs Immat Gran (auto) 0.10 H (0.00-0.03) X10*3/uL Absolute Neuts (auto) 10.1 H (2.0-8.3) x10*3/uL Absolute Nucleated RBC 0.000 (0.0-0.012) X10*3/uL Nucleated RBC % (auto) 0.0 (0.0-0.2) /100WBC PT 14.0 H (10.9-12.4) SEC INR 1.2 H (0.9-1.1) Sodium 134 L (135-145) mmol/L Potassium 3.8 (3.3-5.1) mmol/L Chloride 102 (96-108) mmol/L Carbon Dioxide 23 (22-29) mmol/L Anion Gap 13 (12-20) BUN 10 (9-16) mg/dL Creatinine 0.60 (0.5-1.4) mg/dL Estim Creat Clear Calc 89.2 Estimated GFR > 60 Random Glucose 105 (60-115) mg/dL Calcium 8.4 D (8.4-10.2) mg/dL Magnesium 2.0 (1.6-2.6) mg/dL Total Bilirubin 1.2 H (0.0-1.0) mg/dL Direct Bilirubin 0.7 H (0.0-0.5) mg/dL AST 130 H (5-31) U/L ALT 90 H (0-31) U/L Alkaline Phosphatase 293 H (39-117) U/L Troponin I High Sens 60.2 H* D (<3.5-17.0) ng/L Total Protein 6.9 (6.5-8.0) g/dL Albumin 2.9 L (3.5-5.0) g/dL Lipase 24 (8-78) U/L Urine Color Yellow Urine Appearance Clear Urine pH 7.0 (5.0-9.0) Ur Specific [place] 1.010 (1.005-1.025) Urine Protein Negative (Neg-Trace) mg/dL Urine Glucose (UA) Negative (Negative) mg/dL Urine Ketones Negative (Negative) mg/dL Urine Blood Trace H (Negative) Urine Nitrite Negative (Negative) Ur Leukocyte Esterase Small (1+) H (Negative) Urine RBC 3-5 H (0-2) /HPF Urine WBC 11-20 H (0-5) /HPF Ur Squamous Epith Cells 0-2 (0-2) /HPF Urine Bacteria 3+ (None Seen) Hyaline Casts 0-2 (0-2) /LPF Blood Type B Positive Antibody Screen NEGATIVE Crossmatch See Detail 02/15/25 Range/Units 16:16 WBC (4.8-10.8) X10*3/uL RBC (4.20-5.50) X10*6/uL Hgb (12.0-16.0) g/dl Hct (37.0-47.0) % MCV (80.0-98.0) fL MCH (27.0-33.0) pg MCHC (31.0-35.0) g/dl RDW (11.0-16.0) % Plt Count (160-400) X10*3/uL MPV (9.4-12.3) fL Immature Gran % (Auto) (0.0-0.4) % Neut % (Auto) (45-73) % Lymph % (Auto) (20-40) % [place] % (Auto) (2-11) % Eos % (Auto) (0-4) % Baso % (Auto) (0-2) % Lymph # (Auto) (1.2-4.9) X10*3/uL [place] # (Auto) (0.1-1.2) X10*3/uL Eos # (Auto) (0.0-0.4) X10*3/uL Baso # (Auto) (0.0-0.2) X10*3/uL Abs Immat Gran (auto) (0.00-0.03) X10*3/uL Absolute Neuts (auto) (2.0-8.3) x10*3/uL Absolute Nucleated RBC (0.0-0.012) X10*3/uL Nucleated RBC % (auto) (0.0-0.2) /100WBC PT (10.9-12.4) SEC INR (0.9-1.1) Sodium (135-145) mmol/L Potassium (3.3-5.1) mmol/L Chloride (96-108) mmol/L Carbon Dioxide (22-29) mmol/L Anion Gap (12-20) BUN (9-16) mg/dL Creatinine (0.5-1.4) mg/dL Estim Creat Clear Calc Estimated GFR Random Glucose (60-115) mg/dL Calcium (8.4-10.2) mg/dL Magnesium (1.6-2.6) mg/dL Total Bilirubin (0.0-1.0) mg/dL Direct Bilirubin (0.0-0.5) mg/dL AST (5-31) U/L ALT (0-31) U/L Alkaline Phosphatase (39-117) U/L Troponin I High Sens 60.2 H* (<3.5-17.0) ng/L Total Protein (6.5-8.0) g/dL Albumin (3.5-5.0) g/dL Lipase (8-78) U/L Urine Color Urine Appearance Urine pH (5.0-9.0) Ur Specific [place] (1.005-1.025) Urine Protein (Neg-Trace) mg/dL Urine Glucose (UA) (Negative) mg/dL Urine Ketones (Negative) mg/dL Urine Blood (Negative) Urine Nitrite (Negative) Ur Leukocyte Esterase (Negative) Urine RBC (0-2) /HPF Urine WBC (0-5) /HPF Ur Squamous Epith Cells (0-2) /HPF Urine Bacteria (None Seen) Hyaline Casts (0-2) /LPF Blood Type Antibody Screen Crossmatch External Record Review External record reviewed: Inpatient record, Office record and Outpatient record Chronic Conditions Patient?s care impacted by: Cancer Critical Care Time Critical Care Time Critical Care Time: Yes Total Critical Care Time: 49 Attestation: I have personally provided critical care time exclusive of time spent on separately billable procedures. Time includes review of lab data, radiology results, discussion with consultants, and monitoring for potential decompensation. Intervention performed as documented. Discharge Plan Discharge Clinical Impression: Anemia, Thrombocytopenia, UTI (urinary tract infection) Patient Disposition: Home, Self-Care Instructions: Anemia (ED), Thrombocytopenia (ED) Additional Instructions: You were evaluated in the emergency department today for shortness of breath, anemia, and thrombocytopenia. You received a unit of red blood cells as well as platelets in the emergency department today. Follow up with Dr. Doan. Return to the emergency department with new or concerning symptoms. Prescriptions: New levofloxacin 750 mg tablet 750 mg PO DAILY 5 Days Qty: 5 0RF No Action simethicone [Gas Relief (simethicone)] 125 mg tablet,chewable 125 mg PO BID-QID PRN (Reason: abdominal distention) 10 Days Qty: 30 0RF cholecalciferol (vitamin D3) 25 mcg (1,000 unit) tablet 25 mcg PO DAILY Qty: 90 3RF exemestane [Aromasin] 25 mg Tablet 25 mg PO DAILY Qty: 30 3RF Rx Instructions: must administer after a meal (DME) walker Misc Qty: 1 0RF Rx Instructions: As Directed. No wheels walker with seat. (DME) Chair, shower Misc Qty: 1 0RF Rx Instructions: As Directed clotrimazole-betamethasone 1-0.05 % cream 1 appl topical DAILY pantoprazole 40 mg tablet,delayed release (DR/EC) 40 mg PO BID Qty: 180 0RF ferrous sulfate 324 mg (65 mg iron) tablet,delayed release (DR/EC) 324 mg PO BID Qty: 180 0RF sucralfate 1 gram tablet 1 g PO BIDAC levofloxacin 750 mg Tablet 750 mg PO Q24H Qty: 4 0RF (DME) bath stole See Rx Instructions .Route .MEDSUPPLY Qty: 1 0RF Rx Instructions: As directed (DME) compression stockings medium See Rx Instructions .Route .MEDSUPPLY Qty: 1 0RF Rx Instructions: As directed (DME) walker with seat See Rx Instructions .Route .MEDSUPPLY Qty: 1 0RF Rx Instructions: As directed furosemide [Lasix] 20 mg tablet 20 mg PO Q OTHER DAY 30 Days Qty: 15 0RF cholecalciferol (vitamin D3) 25 mcg (1,000 unit) capsule 25 mcg PO DAILY 90 Days Qty: 90 1RF Referrals: Xavier Doan MD [Physician, Hematology & Oncology] Interventions: ED Discharge Assessment Last Done: 02/16/25 01:01 Discharge Date/Time: 02/16/25 01:03 Print Language: Moroccan
[2025-02-15 13:16] LABS: Troponin-I High Sensitivity 60.2 ng/L (<3.5-17.0)
[2025-02-15 16:23] LABS: Appearance Urine Clear; Color Urine Yellow; Glucose Urine UA Negative (Negative); Leukocyte Esterase Urine Small (1+) (Negative); Nitrite Urine Negative (Negative); UMIC TRIGGER UACC YES; Urine Blood Trace (Negative); Urine Ketones Negative (Negative); Urine Protein Negative (Neg-Trace)
[2025-02-15 16:26] LABS: Bacteria Urine 3+ (None Seen); Hyaline Casts Urine 0-2 /LPF (0-2); Squamous Epithelial Cell Urine 0-2 /HPF (0-2); UACC Culture Trigger YES
[2025-02-15 16:53] LABS: Troponin-I High Sensitivity 60.2 ng/L (<3.5-17.0)
[2025-02-16 00:59] VITALS: BP 138/76; PULSE 108; RESP 20; TEMP 36.6
--- NOTE | 2025-02-16 01:00 | PC.NURSE ---
Blood products transfused per [facility]. Pt denies sudden SOB/CP/itchiness. Daughter in law at bedside. Pt will be D/c with family.
[2025-02-16 01:01] VITALS: BP 138/76; PULSE 108; RESP 20; TEMP 36.6; O2SAT 96
== END 2025-02-16 01:03 | disposition home or self-care (01) ==
PROVIDERS: Physician Assistant; Registered Nurse Emergency; Emergency Provider Emergency Medicine; PCP Internal Medicine
DX: D64.9 Anemia, unspecified (principal); D69.6 Thrombocytopenia, unspecified; N39.0 Urinary tract infection, site not specified; B96.1 Klebsiella pneumoniae [K. pneumoniae] as the cause of diseases classified elsewhere; R06.00 Dyspnea, unspecified; C50.919 Malignant neoplasm of unspecified site of unspecified female breast; C78.89 Secondary malignant neoplasm of other digestive organs; Z92.21 Personal history of antineoplastic chemotherapy; Z92.3 Personal history of irradiation; Z90.49 Acquired absence of other specified parts of digestive tract; Z79.01 Long term (current) use of anticoagulants
CPT/HCPCS: 36415; 36430; 80048; 80076; 81001; 83690; 83735; 84484; 85025; 85610; 86850; 86900; 86901; 86923; 87086; 87088; 87186; 93005; 99285; P9016; P9073

== ENCOUNTER → 2025-02-15 11:54 | Outpatient (BNV) | payer OTHER, SELFPAY | PROVIDERS: Emergency Provider Emergency Medicine; PCP Internal Medicine; Visit Provider Internal Medicine Cardiovascular Disease | DX: R94.31 Abnormal electrocardiogram [ECG] [EKG] (principal); R07.9 Chest pain, unspecified | CPT/HCPCS: 93010 ==

== ENCOUNTER 2025-02-19 16:35 | Inpatient (IN) | payer OTHER, SELFPAY ==
--- NOTE | ~2025-02-19 | XR_ITS ---
CLINICAL HISTORY: sob 1 view chest x-ray Comparison: CR - XR CHEST 1V - 02/05/25 12:35 EDT Findings: Mild interstitial prominence. Hazy density in the right lung base. Cardiac and mediastinal contours are stable. No acute fracture. IMPRESSION: Mild interstitial edema possible. Small right effusion. This document has been electronically signed by: Ryan Kelly MD on 02/20/2025 09:24:04
--- NOTE | ~2025-02-19 | CT_ITS ---
CLINICAL HISTORY: back pain, epigastric pain CT angiography abdomen and pelvis with contrast. 3-D post processing. Comparison: CT - CT GI BLEED ABD PEL WO/W IVCON - 01/25/25 19:26 EDT Findings: Aorta, mesenteric/renal arteries, and iliofemoral systems are patent with no hemodynamically significant stenoses. No aneurysm or dissection. New small right pleural effusion. Extensive atelectasis of the right lower lobe. Previously seen nodules at the right lung base are not well seen due to atelectasis. Multiple nodules are seen in the right lung base, some of which appear to be increased in size for example 7 mm nodule series 7, image 122 was previously measuring 5 mm. There are innumerable low-attenuation liver lesions, similar in comparison to prior. Liver is enlarged. Gallbladder is absent. Kidneys enhance symmetrically and there is no hydronephrosis. Bilateral cysts are present. No bowel obstruction, pneumoperitoneum, or pneumatosis. There are scattered colonic diverticula, however no evidence of diverticulitis. There is a IVC filter within the IVC. Small volume ascites. Degenerative changes of the facet joints in the lower lumbar spine. No lytic or blastic bone lesions. IMPRESSION: 1. No acute vascular abnormalities. 2. New small right pleural effusion. 3. Interval increase in size of pulmonary nodules. 4. Hepatomegaly with innumerable hepatic metastases. This document has been electronically signed by: Himanshu Mabry MD on 02/19/2025 23:16:44
--- NOTE | ~2025-02-19 | CT_ITS ---
CLINICAL HISTORY: weakness CT head without contrast Comparison: None provided Findings: No intra-axial mass, midline shift, hydrocephalus, or acute hemorrhage. Mild cerebral atrophy. Mucosal thickening of the left maxillary sinus. Other paranasal sinuses are clear. The orbits are within normal limits. There is no acute fracture. IMPRESSION: 1. No acute intracranial findings. This document has been electronically signed by: Himanshu Mabry MD on 02/19/2025 23:25:22
[2025-02-19 16:53] VITALS: BP 117/61; PULSE 106; RESP 18; TEMP 36.4; O2SAT 98; BMI 27.3
--- NOTE | 2025-02-19 17:00 | ED_ITS ---
HPI - SOB/Dyspnea General Chief Complaint: GI Bleed Stated Complaint: Sob Time Seen by Provider: 02/19/25 18:17 Source: patient and family (patient's son) Mode of arrival: ambulatory Limitations: no limitations History of Present Illness ED Provider: Sangita Winters PA-C HPI Narrative: Patient is a 64 year old assigned female at with a history of metastatic breast cancer status post chemo/radiotherapy/surgery, metastatic gallbladder cancer-completed chemotherapy; partial hepatectomy, cholecystectomy, lumpectomy; CAD, arthritis, neuropathy, GERD, pulmonary embolism-not on anticoagulation secondary to GI bleed but does have filter; and recent admission for transfusions presenting to the emergency department today with worsening weakness, continued blood in her stools, and feeling generally unwell. Patient states that she can now not function at home and feels much worse than she did before. Patient denies any dizziness, lightheadedness, abdominal pain, nausea, vomiting, fever, chills, blurry vision, double vision, loss of vision, chest pain, difficulty breathing, shortness of breath, back pain, night sweats, pain with urination, increased urinary frequency, increased urinary urgency, blood in her urine, syncope or a near syncopal episode, recent trauma or falls, bowel incontinence, bladder incontinence, or any other complaints at this time. Related Data Home Medications ?Medication ?Instructions ?Recorded ?Confirmed clotrimazole-betamethasone 1 1 appl topical DAILY 12/3102/09/25 %-0.05 % topical cream sucralfate 1 gram tablet 1 g PO BIDAC 02/03/25 Previous Rx's ?Medication ?Instructions ?Recorded bath stole #1 ea 01/17/21 compression stockings #1 ea 01/17/21 cholecalciferol (vitamin D3) 25 25 mcg PO DAILY #90 ta bs 10/12/24 mcg (1,000 unit) tablet exemestane 25 mg tablet (Aromasin) 25 mg PO DAILY #30 tabs 01/03/25 ferrous sulfate 324 mg (65 mg 324 mg PO BID #180 tabs 01/31/25 iron) tablet,delayed release pantoprazole 40 mg tablet,delayed 40 mg PO BID #180 ta bs 01/31/25 release walker with seat #1 ea 02/02/25 levofloxacin 750 mg tablet 750 mg PO Q24H #4 tabs 04/25 cholecalciferol (vitamin D3) 25 25 mcg PO DAILY 90 day s #90 caps 02/09/25 mcg (1,000 unit) capsule furosemide 20 mg tablet (Lasix) 20 mg PO Q OTHER DAY 3 0 days #15 02/09/25 tabs simethicone 125 mg chewable tablet 125 mg PO BID-QID P RN abdominal 02/10/25 (Gas Relief (simethicone)) distention 10 days #30 tabs Shower Chair (Chair, shower) #1 ea 02/11/25 walker #1 ea 02/11/25 levofloxacin 750 mg tablet 750 mg PO DAILY 5 days #5 t abs 02/19/25 Allergies Allergy/AdvReac Type Severity Reaction Status Date / Time Penicillins (PENICILLINS) Allergy Severe ANAPHYLAXIS, Verified 02/19/25 16:56 swelling streptomycin (STREPTOMYCIN) Allergy Severe ANAPHYLAXIS Verified 02/19/25 16:56 Review of Systems 2 Constitutional: Constitutional: Reports no additional constitutional complaints, Denies chills, Denies fever(s), Denies night sweats and Reports weakness Eyes: Eyes: Reports no additional eye complaints, Denies blurry vision, Denies change in vision, Denies diplopia, Denies eye discharge, Denies loss of vision and Denies eye pain ENT: Denies dizziness Cardiovascular: Cardiovascular: Reports no additional cardiovascular complaints, Denies chest pain, Denies lightheadedness, Denies Loss of Consciousness and Denies dyspnea Respiratory: Respiratory: Reports no additional respiratory complaints and Denies dyspnea Gastrointestinal: Gastrointestinal: Reports no additional gastrointestinal complaints, Denies abdominal pain, Reports melena, Denies hematochezia, Denies change in bowel habits and Denies change in stool character Genitourinary: Genitourinary: Denies hematuria, Denies urinary frequency, Denies dysuria, Denies urinary incontinence, Denies urinary hesitancy and Denies urinary urgency Musculoskeletal: Musculoskeletal: Reports no additional musculoskeletal complaints, Denies numbness and Denies tingling Neurologic: Denies dizziness, Denies loss of vision, Denies numbness, Denies tingling and Reports weakness Psychiatric: Psychiatric: Reports no additional psychiatric complaints Endocrine: Endocrine: Reports no additional endocrine complaints Hematologic/Lymphatic: Hematologic/Lymphatic: Reports no additional hematologic/lymphatic complaints Allergic/Immunologic: Allergic/Immunologic: Reports no additional allergic/immunologic complaints PMFSH Past Medical History Attestation statement: The following information was validated with the patient. 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 DVT (deep venous thrombosis) Metastatic disease Metastatic cancer to liver Pulmonary embolism Metastasis from gallbladder cancer Pulmonary embolism Pulmonary nodules Pneumonitis Chest pain Chronic cough Vaginal yeast infection Breast lump on right side at 5 o'clock position History of colon polyps Breast cancer, left (~10/2016) Spondylosis Back pain Neuropathy Surgical History Hx of cholecystectomy History of esophagogastroduodenoscopy (EGD) History of lumpectomy of right breast (06/26/22) Hx of vein stripping Hx of colonoscopy (~10/2018) S/P breast lumpectomy Family History Family History Mother No problems noted. Father No problems noted. Other No family history of cancer Social History Social History Household Members: Children Household Members Other:: currently lives with her son Housing: House Are you a primary home care coordinator to a significant other at home: No Do you presently have visiting nurse or other home services: Yes Unable to assess alcohol history related to: Unknown Alcohol intake: never Comment: med with oxycodone 5 mg po in PACU Patient Tobacco Use Status: Never used Tobacco Smoked in Last 30 Days: No e-Cigarette/Vaping Use: Never Used Second Hand Smoke Exposure: No Use of substances other than those prescribed or required for medical reasons: No Advance Directives: No Advance Directives Information Provided: Yes Do you have a plan to hurt others: No Plan service: No Current occupational status: disabled Current occupation: rt handed Cognitive needs: No Hearing needs: No Vision needs: Yes Physical Exam 2 Vital Signs: Vital Signs: Last Vital Signs Temp 98.6 F 02/19/25 20:12 Pulse 104 H 02/19/25 20:12 Resp 18 02/19/25 20:12 BP 109/53 L 02/19/25 20:12 Pulse Ox 98 02/19/25 20:12 O2 Del Method Room Air 02/19/25 20:12 BMI result Body Mass Index 27.3 Const: General: cooperative, no acute distress, alert and awake Nutritional Appearance: well nourished Orientation/consciousness: patient oriented x3 HEENT: Head: Yes normal to inspection and Yes atraumatic Ears: hearing grossly normal bilaterally and external ears normal General nose exam: Normal external nose present, no nasal discharge noted and no epistaxis Face and sinus: Yes normal facial exam, No abrasion and No laceration Mouth: Normal oral and palatal mucosa present, no drooling and no muffled voice Eyes: General: appearance normal, both eyes and all related structures P eriorbital: periorbital findings normal Eyelids: Yes eyelids normal C onjunctivae: conjunctivae normal Pupils: Equal, round and reactive pupils present EOM: EOMs intact bilaterally Neck: Neck: Yes normal visual inspection, Yes full ROM and Yes no lymphadenopathy Resp: Effort & Inspection: normal respiratory effort and able to speak in complete sentences Neuro: General: patient oriented x3, moves all extremities and CN's II-XI intact bilaterally Cranial nerves: Yes Equal, round and reactive pupils present Cognition (Neuro): normal cognition Extrem: General: Yes normal to inspection, Yes full ROM and Yes capillary refill normal Psych: Appearance: grossly normal Mental Status: mental status grossly normal Affect: normal affect Attitude: cooperative Thought process: N ormal thought process present Thought content: Normal thought content present Insight: Good insight present (Psych) Course Course Course Narrative: This is an RME: Additional HPI, ROS, PE not included below will be deferred to primary provider. RME assessment and note performed by: Lulu Lawrence PA-C 64-year-old female with history of metastatic breast cancer status post chemo/radiotherapy/surgery, metastatic gallbladder cancer-completed chemotherapy; history of partial hepatectomy, cholecystectomy, lumpectomy; CAD, arthritis, neuropathy, GERD, pulmonary embolism-not on anticoagulation secondary to GI bleed; recent admission to the hospital 2 weeks ago referred to the ED by Dr. Doan for worsening anemia, thrombocytopenia, and recent ED visit for thrombocytopenia, who presents to the ER with complaints of shortness of breath. Reporting that she is having black stool. Reporting chest pain, back pain and abdominal pain. Plan: Labs, EKG, further ER eval needed Medications Administered Discontinued Medications Generic Name Dose Route Start Last Admin Trade Name Susana PRN Reason Stop Dose Admin Sodium Chloride 1,000 mls @ 999 mls/hr 02/19/25 18:30 02/19/25 23:20 Ns IV 02/19/25 19:30 999 mls/hr .Q1H1M VICKY Administration Medical Decision Making Medical Decision Making [facility] Narrative: Patient is a 64 year old assigned female at with a history of metastatic breast cancer status post chemo/radiotherapy/surgery, metastatic gallbladder cancer-completed chemotherapy; partial hepatectomy, cholecystectomy, lumpectomy; CAD, arthritis, neuropathy, GERD, pulmonary embolism-not on anticoagulation secondary to GI bleed but does have filter; and recent admission for transfusions presenting to the emergency department today with worsening weakness, continued blood in her stools, and feeling generally unwell. Patient's physical exam was unremarkable. Patient's blood work showed a WBC count of 13.6, hgb of 9.7, hct of 27.9, platelets of 22, sodium of 129, and chronically elevated LFTs. Patient's EKG was unremarkable. Patient's CTA of the abdomen/pelvis showed no acute process. Patient's CT head showed no acute process. I spoke to the hospitalist team who agreed to admission and recommended transfusing platelets. I obtained verbal consent (with written consent form filled out by me) to transfuse the patient from the patient. I explained my physical exam findings as well as all test results to the patient. I answered all questions asked by the patient. Patient verbalized agreement and understanding with this treatment plan and admission. Differential Diagnosis Differential Diagnoses: The differential diagnosis associated with the presentation includes Low platelets Acute on chronic anemia Hyponatremia Weakness Admission/Observation Consideration of admission/observation: Escalation of care including admission/observation considered Patient admitted as noted in the MDM Rationale portion of this note. Consult Healthcare Provider Management of the patient was discussed with: Hospitalist (agreed to admission as noted in the MDM Rationale portion of this note. ) Lab Data [facility] Lab Attestation statement: I reviewed the patient's lab results. My interpretation of these results are in the MDM Rationale portion of this note. 02/19/25 17:32 02/19/25 17:32 Labs: Lab Results 06/21/25 06/21/25 Range/Units 17:32 21:00 WBC 13.6 H (4.8-10.8) X10*3/uL RBC 2.91 L (4.20-5.50) X10*6/uL Hgb 9.7 L (12.0-16.0) g/dl Hct 27.9 L (37.0-47.0) % MCV 95.9 (80.0-98.0) fL MCH 33.3 H (27.0-33.0) pg MCHC 34.8 (31.0-35.0) g/dl RDW 19.9 H (11.0-16.0) % Plt Count 22 L D (160-400) X10*3/uL MPV 12.1 (9.4-12.3) fL Immature Gran % (Auto) 0.7 H (0.0-0.4) % Neut % (Auto) 81.6 H (45-73) % Lymph % (Auto) 8.9 L (20-40) % [place] % (Auto) 7.7 (2-11) % Eos % (Auto) 0.9 (0-4) % Baso % (Auto) 0.2 (0-2) % Lymph # (Auto) 1.2 (1.2-4.9) X10*3/uL [place] # (Auto) 1.1 (0.1-1.2) X10*3/uL Eos # (Auto) 0.1 (0.0-0.4) X10*3/uL Baso # (Auto) 0.0 (0.0-0.2) X10*3/uL Abs Immat Gran (auto) 0.09 H (0.00-0.03) X10*3/uL Absolute Neuts (auto) 11.1 H (2.0-8.3) x10*3/uL Absolute Nucleated RBC 0.000 (0.0-0.012) X10*3/uL Nucleated RBC % (auto) 0.0 (0.0-0.2) /100WBC Sodium 129 L (135-145) mmol/L Potassium 4.0 (3.3-5.1) mmol/L Chloride 98 (96-108) mmol/L Carbon Dioxide 21 L (22-29) mmol/L Anion Gap 14 (12-20) BUN 11 (9-16) mg/dL Creatinine 0.52 (0.5-1.4) mg/dL Estim Creat Clear Calc 107.8 Estimated GFR > 60 Random Glucose 108 (60-115) mg/dL Calcium 8.3 L (8.4-10.2) mg/dL Magnesium 1.9 (1.6-2.6) mg/dL Total Bilirubin 2.1 H (0.0-1.0) mg/dL Direct Bilirubin 1.1 H (0.0-0.5) mg/dL AST 136 H (5-31) U/L ALT 77 H (0-31) U/L Alkaline Phosphatase 331 H (39-117) U/L Troponin I High Sens 31.1 H (<3.5-17.0) ng/L Total Protein 6.6 (6.5-8.0) g/dL Albumin 2.8 L (3.5-5.0) g/dL Lipase 21 (8-78) U/L Blood Type B Positive Antibody Screen NEGATIVE Independent Interpretation I performed an independent interpretation of an: EKG and CT Scan Interpretation: My interpretation is in agreement with the radiologist's impression of these imaging studies. L Report Number: [id number]: Total DLP = 713.00 mGy-cm CLINICAL HISTORY: back pain, epigastric pain CT angiography abdomen and pelvis with contrast. 3-D post processing. Comparison: CT - CT GI BLEED ABD PEL WO/W IVCON - 01/25/25 19:26 EDT Findings: Aorta, mesenteric/renal arteries, and iliofemoral systems are patent with no hemodynamically significant stenoses. No aneurysm or dissection. New small right pleural effusion. Extensive atelectasis of the right lower lobe. Previously seen nodules at the right lung base are not well seen due to atelectasis. Multiple nodules are seen in the right lung base, some of which appear to be increased in size for example 7 mm nodule series 7, image 122 was previously measuring 5 mm. There are innumerable low-attenuation liver lesions, similar in comparison to prior. Liver is enlarged. Gallbladder is absent. Kidneys enhance symmetrically and there is no hydronephrosis. Bilateral cysts are present. No bowel obstruction, pneumoperitoneum, or pneumatosis. There are scattered colonic diverticula, however no evidence of diverticulitis. There is a IVC filter within the IVC. Small volume ascites. Degenerative changes of the facet joints in the lower lumbar spine. No lytic or blastic bone lesions. IMPRESSION: 1. No acute vascular abnormalities. 2. New small right pleural effusion. 3. Interval increase in size of pulmonary nodules. 4. Hepatomegaly with innumerable hepatic metastases. This document has been electronically signed by: Himanshu Mabry MD on 02/19/2025 23:16:44 Dictated By: Himanshu Mabry MD Signed By: Electronically signed by Himanshu Mabry MD 02/19/25 [id number] Report Number: [id number]: Total DLP = 592.00 mGy-cm CLINICAL HISTORY: weakness CT head without contrast Comparison: None provided Findings: No intra-axial mass, midline shift, hydrocephalus, or acute hemorrhage. Mild cerebral atrophy. Mucosal thickening of the left maxillary sinus. Other paranasal sinuses are clear. The orbits are within normal limits. There is no acute fracture. IMPRESSION: 1. No acute intracranial findings. This document has been electronically signed by: Himanshu Mabry MD on 02/19/2025 23:25:22 Dictated By: Himanshu Mabry MD Signed By: Electronically signed by Himanshu Mabry MD 02/19/25 [id number] I independently interpreted this EKG and am in agreement with the below findings: Vent. Rate: 110 BPM Atrial Rate: 110 BPM P-R Int: 148 ms QRS Dur: 68 ms QT Int: 336 ms P-R-T Axes: 21 -10 138 degrees QTcB Int: 454 ms Sinus tachycardia Minimal voltage criteria for LVH, may be normal variant ( R in aVL ) Septal infarct (cited on or before 15-Feb-2025) When compared with ECG of 15-Feb-2025 11:57, No significant change was found DD/ 1710 Radiology Impression Discussion of test interpretation with radiology: I have reviewed the radiologist's reading. Independent Historian Clinical information obtained from an independent historian. History obtained from or confirmed by: Other (Patient's son provided additional history and confirmed the history provided by the patient. ) Critical Care Time Critical Care Time Critical Care Time: Yes Total Critical Care Time: 38 Attestation: I spent 38 minutes of Critical Care Time with this patient. This does not include time spent on separately reported billable procedures. Discharge Plan Discharge Clinical Impression: Acute hyponatremia, Thrombocytopenia Patient Disposition: Admitted As Inpatient Print Language: Kiswahili
--- NOTE | 2025-02-19 17:02 | ECG_ITS ---
Test Reason : CP Blood Pressure : */* mmHG Vent. Rate : 110 BPM Atrial Rate : 110 BPM P-R Int : 148 ms QRS Dur : 68 ms QT Int : 336 ms P-R-T Axes : 21 -10 138 degrees QTcB Int : 454 ms Sinus tachycardia Minimal voltage criteria for LVH, may be normal variant ( R in aVL ) Septal infarct (cited on or before 15-Feb-2025) Abnormal ECG When compared with ECG of 15-Feb-2025 11:57, No significant change was found Referred By: Lulu Lawrence Electronically Signed By: Molina Box
[2025-02-19 17:36] LABS: MANUAL DIFF FLAG NO
[2025-02-19 17:39] LABS: Basophils Percent Auto 0.2 % (0-2); Eosinophils Absolute Auto 0.1 X10*3/uL (0.0-0.4); Eosinophils Percent Auto 0.9 % (0-4); Hematocrit 27.9 % (37.0-47.0); Hemoglobin 9.7 g/dl (12.0-16.0); Imm Gran Abs Auto 0.09 X10*3/uL (0.00-0.03); Imm Gran Pct Auto 0.7 % (0.0-0.4); Lymphocytes Absolute Auto 1.2 X10*3/uL (1.2-4.9); Lymphocytes Percent Auto 8.9 % (20-40); Mean Corpuscular HGB Conc 34.8 g/dl (31.0-35.0); Mean Corpuscular Hemoglobin 33.3 pg (27.0-33.0); Mean Corpuscular Volume 95.9 fL (80.0-98.0); Mean Platelet Volume 12.1 fL (9.4-12.3); Monocytes Absolute Auto 1.1 X10*3/uL (0.1-1.2); Monocytes Percent Auto 7.7 % (2-11); Neutrophils Absolute Auto 11.1 x10*3/uL (2.0-8.3); Neutrophils Percent Auto 81.6 % (45-73); Red Blood Count 2.91 X10*6/uL (4.20-5.50); Red Cell Distribution Width 19.9 % (11.0-16.0); White Blood Count 13.6 X10*3/uL (4.8-10.8)
[2025-02-19 17:40] LABS: Platelet Count 22 X10*3/uL (160-400)
[2025-02-19 18:02] LABS: Alanine Aminotransferase 77 U/L (0-31); Albumin Level 2.8 g/dL (3.5-5.0); Alkaline Phosphatase 331 U/L (39-117); Anion Gap 14 (12-20); Aspartate Amino Transferase 136 U/L (5-31); Bilirubin Direct 1.1 mg/dL (0.0-0.5); Bilirubin Total 2.1 mg/dL (0.0-1.0); Blood Urea Nitrogen 11 mg/dL (9-16); Calcium 8.3 mg/dL (8.4-10.2); Carbon Dioxide 21 mmol/L (22-29); Chloride 98 mmol/L (96-108); Creatinine Clr Calc Pharmacy 107.8; Estimated Glomerular Filt Rate > 60; Glucose Random 108 mg/dL (60-115); Lipase 21 U/L (8-78); Magnesium 1.9 mg/dL (1.6-2.6); Sodium 129 mmol/L (135-145); Total Protein 6.6 g/dL (6.5-8.0)
[2025-02-19 18:03] LABS: Troponin-I High Sensitivity 31.1 ng/L (<3.5-17.0)
[2025-02-19 18:13] VITALS: BP 105/44; PULSE 105; RESP 16; TEMP 36.6; O2SAT 99
--- OUTSIDE RECORDS SUMMARY | 2025-02-19 18:33 | XMS_ITS | Clinical Summary ---
Author Organization [facility] Address [address] [place] [address] Care Team Providers Care Configuration Management Analyst Name Role Phone Adria Rubio MD Primary Care Provider [phone] Allergies Active Allergy Reactions Criticality Noted Date [...] Diagnosed Date Rotator cuff tendonitis 09/30/2024 Sacroiliitis ([facility] V24) 09/30/2024 Segmental and somatic dysfunction of sacral tiki on 09/30/2024 Chronic pain of right hip 09/30/2024 Greater trochanteric bursitis 09/30/2024 Lumbar spondylosis 06/30/2024 Back pain 06/30/2024 Malignant neoplasm of left b reast ([facility] V24, [facility] V28) 06/30/2024 Chest pain 06/30/2024 Chronic cough 06/30/2024 History of colon polyps 06/30/2024 Neuropathy 06/30/2024 Pneumonitis 06/30/2024 Pulmonary embolism ([facility] V24, [facility] V28) Pulmonary nodules 06/30/2024 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[facility] V24, [facility] V28) Cancer Staging:Pathologic:Stage IIIB(pT2b, pN1, cM0) - Signed by Elba Krueger MD on 07/07/2024 Osteoarthritis of knee 03/24/2024 Rib pain 01/02/2021 Single acquired cyst of kidney 01/02/2021 Immunizations Name Administration Dates Next Due Influenza Quadravalent, aliica mbinant, 0.5ml, preservative free (Flublok) 18yo and [...] History Medical History Date Comments Breast cancer ([facility] V24, [facility] V28) Clotting disorder ([facility] V24) Family History Medical History [...] 92 07/07/2024 8:40 AM EST Temperature 35.7 C (96.2 F) 07/07/2024 8:40 AM EST Respiratory Rate 16 07/07/2024 8:40 AM EST [...] 60-74 years 1-dose series) 2021 COVID-19 Vaccine () 05/02/2024 01/07/2022, 08/01/2021, 01/24/2021, Additional history exists Colorectal [...] patient's age to complete this topic Insurance [facility] [place]ID - [place] Care Teams Configuration Management Analyst Relationship Specialty Start Date End Date Adria Rubio MD [address] [place] [phone] PCP - General Internal Medicine 08/04/24
[2025-02-19 20:12] VITALS: BP 109/53; PULSE 104; RESP 18; TEMP 37; O2SAT 98
[2025-02-19] MEDS: 0.9 % Sodium Chloride 1,000 ML 999 ML IV (23:20)
--- NOTE | 2025-02-19 23:49 | P.HPHOSP_ITS ---
History of Present Illness Date of Service: 02/19/25 Attending physician on admission: Teo Medeiros Chief Complaint: weakness, SOB 64-year-old female with a past medical history of metastatic breast cancer status post chemo/radiotherapy/surgery, metastatic gallbladder cancer-completed chemotherapy; history of partial hepatectomy, cholecystectomy, lumpectomy; CAD, arthritis, neuropathy, GERD, pulmonary embolism-not on anticoagulation secondary to GI bleed; with 2 recent admissions in the end of December for acute anemia secondary to GI blood loss-diagnosed gastric antral vascular ectasia; acute on chronic thrombocytopenia; received blood transfusions and subsequently discharged home on 01/31/2025, and a repeat admission 02/03/25 for acute on chronic anemia with repeat EGD showing ulcerated mucosa areas from prior APC with mild oozing, duodenal bulb with area of oozing with duodenitis s/p clip and hemo spray. She also received 3 units of PRBC, 1 unit of platelets and 1 unit of FFP with a goal to keep platelets greater than 40. Ultimately she was discharged home on 02/06/2025, and now she returns to the ED again today due to generalized weakness, shortness of breath and bloody stools. She has abdominal tenderness in the right upper quadrant. She reports that she can not function at home and feels much worse than she did before. She denies any nausea, vomiting, fever, chills, blurry vision, vision loss, chest pain, back pain, night sweats or urinary symptoms including frequency, urgency or dysuria. Review of Systems 2 Constitutional: Constitutional: Reports body ache(s), Denies chills, Reports fatigue, Denies fever(s) and Denies frequent falls Eyes: Eyes: Denies blurry vision and Denies change in vision ENT: Denies nasal congestion, Denies nasal discharge and Denies sore throat Cardiovascular: Cardiovascular: Denies chest pain, Denies syncope and Denies dyspnea Respiratory: Respiratory: Denies cough, Denies dyspnea and Denies wheezing Gastrointestinal: Gastrointestinal: Reports as per HPI Genitourinary: Genitourinary: Denies dysuria Musculoskeletal: Musculoskeletal: Reports muscle weakness Integumentary/Breasts: Skin/Breast: Denies rash Neurologic: Denies confusion, Denies syncope and Denies frequent falls Psychiatric: Psychiatric: Denies confusion Endocrine: Endocrine: Reports fatigue Allergic/Immunologic: Allergic/Immunologic: Denies wheezing PMFSH Medical History Chemotherapy-induced neuropathy Metastatic cholangiocarcinoma DVT (deep venous thrombosis) Metastatic disease Metastatic cancer to liver Pulmonary embolism Metastasis from gallbladder cancer Pulmonary embolism Pulmonary nodules Pneumonitis Chest pain Chronic cough Vaginal yeast infection Breast lump on right side at 5 o'clock position History of colon polyps Breast cancer, left (~10/2016) Spondylosis Back pain Neuropathy Family History Mother No problems noted. Father No problems noted. Other No family history of cancer Surgical History Hx of cholecystectomy History of esophagogastroduodenoscopy (EGD) History of lumpectomy of right breast (06/26/22) Hx of vein stripping Hx of colonoscopy (~10/2018) S/P breast lumpectomy Social History Household Members: Children Household Members Other:: currently lives with her son Housing: House Are you a primary patient care associate to a significant other at home: No Do you presently have visiting nurse or other home services: No Unable to assess alcohol history related to: Unknown Alcohol intake: never Comment: med with oxycodone 5 mg po in PACU Patient Tobacco Use Status: Never used Tobacco e-Cigarette/Vaping Use: Never Used Second Hand Smoke Exposure: No service: No Current occupational status: disabled Current occupation: rt handed Cognitive needs: No Hearing needs: No Vision needs: Yes Meds Allergies Allergy/AdvReac Type Severity Reaction Status Date / Time Penicillins (PENICILLINS) Allergy Severe ANAPHYLAXIS, Verified 02/19/25 16:56 swelling streptomycin (STREPTOMYCIN) Allergy Severe ANAPHYLAXIS Verified 02/19/25 16:56 Active Medications: Current Medications Acetaminophen (Acetaminophen 325 Mg Tablet) 650 mg PO Q6H PRN PRN Reason: Pain, Mild 1-3,fever,headache Calcium Carbonate (Calcium Carbonate 750 Mg Tab.Chew) 750 mg PO Q4H PRN PRN Reason: Heartburn Magnesium Hydroxide (Milk Of Magnesia 30 Ml Oral.Susp) 30 ml PO DAILY PRN PRN Reason: Constipation Melatonin (Melatonin 3 Mg Tablet) 6 mg PO BEDTIME PRN PRN Reason: Insomnia Morphine Sulfate (Morphine Sulfate 4 Mg/Ml Cartridge) 2 mg IVPUSH Q4H PRN; Protocol PRN Reason: Pain, Severe (Pain Scale 7-10) Ondansetron HCl (Ondansetron Hcl 4 Mg/2 Ml Vial) 4 mg IVPUSH Q8H PRN PRN Reason: Nausea and Vomiting Oxycodone HCl (Oxycodone Hcl Immed Release 5 Mg Tablet) 5 mg PO Q6H PRN PRN Reason: Pain, Moderate(Pain Scale 4-6) Sodium Chloride (0.9 % Sodium Chloride Flush 3 Ml Syringe) 3 ml IVFLUSH QSHIFT [facility] Home Medications ?Medication ?Instructions ?Recorded ?Confirmed ?Last Taken ?Type clotrimazole-betamethasone 1 1 appl topical DAILY 12/3102/09/25 02/01/25 History %-0.05 % topical cream sucralfate 1 gram tablet 1 g PO BIDAC 02/03/2502/01/25 History Physical Exam 2 Vital Signs and Narrative: Vital Signs: Last Vital Signs Temp 98.6 F 02/19/25 20:12 Pulse 104 H 02/19/25 20:12 Resp 18 02/19/25 20:12 BP 109/53 L 02/19/25 20:12 Pulse Ox 98 02/19/25 20:12 O2 Del Method Room Air 02/19/25 20:12 BMI result Body Mass Index 27.3 General: AOx3, no acute distress Resp: CTA bilaterally CVS: S1, S2, RRR GI: +BS, RUQ tenderness, no distention Skin: Warm, dry Neuro: Cranial nerves II-XII grossly intact bilaterally. Motor grossly intact bilaterally Extremities: No edema Psych: Appropriate affect Const: General: No confusion Orientation/consciousness: No confusion Neuro: General: No confusion Results Labs 02/19/25 17:32 02/19/25 17:32 Labs: Laboratory Results - last 24 hr 02/19/25 02/19/25 17:32 21:00 MCV 95.9 MCH 33.3 H MCHC 34.8 RDW 19.9 H Plt Count 22 L D MPV 12.1 Immature Gran % (Auto) 0.7 H Neut % (Auto) 81.6 H Lymph % (Auto) 8.9 L [place] % (Auto) 7.7 Eos % (Auto) 0.9 Baso % (Auto) 0.2 Lymph # (Auto) 1.2 [place] # (Auto) 1.1 Eos # (Auto) 0.1 Baso # (Auto) 0.0 Abs Immat Gran (auto) 0.09 H Absolute Neuts (auto) 11.1 H Absolute Nucleated RBC 0.000 Nucleated RBC % (auto) 0.0 Anion Gap 14 Estim Creat Clear Calc 107.8 Estimated GFR > 60 Random Glucose 108 Calcium 8.3 L Magnesium 1.9 Total Bilirubin 2.1 H Direct Bilirubin 1.1 H AST 136 H ALT 77 H Alkaline Phosphatase 331 H Troponin I High Sens 31.1 H Total Protein 6.6 Albumin 2.8 L Lipase 21 Blood Type B Positive Antibody Screen NEGATIVE Assessment and Plan (1) Thrombocytopenia: Status: Acute (2) Weakness: Status: Acute (3) Chronic anemia: Status: Acute (4) Hyponatremia: Status: Acute Plan 64-year-old female with a past medical history of metastatic breast cancer status post chemo/radiotherapy/surgery, metastatic gallbladder cancer-completed chemotherapy; history of partial hepatectomy, cholecystectomy, lumpectomy; CAD, arthritis, neuropathy, GERD, pulmonary embolism-not on anticoagulation secondary to GI bleed; with 2 recent admissions in the end of December for acute anemia secondary to GI blood loss-diagnosed gastric antral vascular ectasia; acute on chronic thrombocytopenia; received blood transfusions and subsequently discharged home on 01/31/2025, and a repeat admission 02/03/25 for acute on chronic anemia with repeat EGD showing ulcerated mucosa areas from prior APC with mild oozing, duodenal bulb with area of oozing with duodenitis s/p clip and hemo spray. She also received 3 units of PRBC, 1 unit of platelets and 1 unit of FFP with a goal to keep platelets greater than 40. Ultimately she was discharged home on 02/06/2025, and now she returns to the ED again today due to generalized weakness, shortness of breath and bloody stools. acute on chronic thrombocytopenia with associated weakness and abd pain - PLT 22 - hgb 9.7, improved since recent discharge - occult stool test positive - A/P CT angio negative for acute bleed, no acute findings - head CT negative - LFTs at baseline but alk phos increasing, now [address] with increased liver mets - heme/onc consult - given FFP in ED - monitor CBC - platelet goal 40 chronic anemia - hgb 9.7, improved from recent admission - occult stool test positive - A/P CT angio without acute bleed or findings - clear liquid diet - consult GI - continue sucralfate, PPI, iron - monitor CBC hyponatremia -- appears chronic - Na 129 - given 1L NS in ED - follow BMP hx PE - no anticoagulation due to recent GI bleed. s/p IVC filter - chronic tachycardia, likley due to anemia. no hypoxia. continue to monitor metastatic cholangiocarcinoma - followed by [facility] and [facility] full code VTE prophy: pneumoboots Pt with acute on chronic thrombocytopenia with associated weakness and abd pain, requiring admission for FFP, specialist consultations and monitoring for at least 2 midnights stay. Quality Stroke Does the patient have a stroke diagnosis?: No VTE Prior VTE?: Yes VTE Risk Level:: Medical - moderate - high VTE Device Contraindication: N/A - Device Ordered VTE Drug Contraindication: Treatment Not Indicated
[2025-02-20] VITALS (9 sets, daily range): BP systolic 118–154; BP diastolic 58–92; PULSE 97–106; RESP 16–20; TEMP 36–36.9; O2SAT 97–99
--- NOTE | 2025-02-20 00:44 | PC.NURSE ---
pt reports 10/ R. flank pain however refusing pain meds at this time.
[2025-02-20 00:47] LABS: OBS Int Ctl Valid YES; OBS1 POSITIVE (NEGATIVE)
[2025-02-20 05:12] LABS: Appearance Urine Clear; Color Urine Dark Yellow; Glucose Urine UA Negative (Negative); Leukocyte Esterase Urine Trace (Negative); Nitrite Urine Negative (Negative); PH 5.5 (5.0-9.0); Specific Gravity - Urine >= 1.030 (1.005-1.025); UMIC TRIGGER UACC YES; Urine Blood Moderate (2+) (Negative); Urine Ketones Negative (Negative); Urine Protein 30 (1+) mg/dL (Neg-Trace)
[2025-02-20 05:16] LABS: Bacteria Urine 4+ (None Seen); Hyaline Casts Urine 0-2 /LPF (0-2); UACC Culture Trigger YES; WBC Urine 21-50 /HPF (0-5)
[2025-02-20 06:24] LABS: MANUAL DIFF FLAG NO
[2025-02-20 06:32] LABS: Basophils Percent Auto 0.3 % (0-2); Eosinophils Absolute Auto 0.1 X10*3/uL (0.0-0.4); Eosinophils Percent Auto 0.4 % (0-4); Hematocrit 27.3 % (37.0-47.0); Hemoglobin 9.1 g/dl (12.0-16.0); Imm Gran Abs Auto 0.09 X10*3/uL (0.00-0.03); Imm Gran Pct Auto 0.7 % (0.0-0.4); Lymphocytes Absolute Auto 0.8 X10*3/uL (1.2-4.9); Lymphocytes Percent Auto 5.7 % (20-40); Mean Corpuscular HGB Conc 33.3 g/dl (31.0-35.0); Mean Corpuscular Hemoglobin 32.9 pg (27.0-33.0); Mean Corpuscular Volume 98.6 fL (80.0-98.0); Monocytes Absolute Auto 0.9 X10*3/uL (0.1-1.2); Monocytes Percent Auto 6.8 % (2-11); Neutrophils Absolute Auto 11.6 x10*3/uL (2.0-8.3); Neutrophils Percent Auto 86.1 % (45-73); Red Blood Count 2.77 X10*6/uL (4.20-5.50); Red Cell Distribution Width 20.4 % (11.0-16.0); White Blood Count 13.5 X10*3/uL (4.8-10.8)
[2025-02-20 06:35] LABS: Platelet Count 24 X10*3/uL (160-400)
[2025-02-20 06:39] LABS: Anion Gap 15 (12-20); Blood Urea Nitrogen 13 mg/dL (9-16); Calcium 8.2 mg/dL (8.4-10.2); Carbon Dioxide 23 mmol/L (22-29); Chloride 99 mmol/L (96-108); Creatinine Clr Calc Pharmacy 107.8; Estimated Glomerular Filt Rate > 60; Glucose Random 102 mg/dL (60-115); Sodium 133 mmol/L (135-145)
--- NOTE | 2025-02-20 07:22 | HO.PM.IMPN ---
Subjective Subjective Date of Service: 02/20/25 Interval History: Seen and examined this morning Platelets remain low at 24. Complaining of dyspnea on exertion. No chest pain. Chronic edema. Ongoing weakness Review of Systems Review of Systems: Yes all other systems are reviewed and are negative Physical Exam Vital Signs: Vital Signs: Last Vital Signs Temp 97.9 F 02/20/25 03:10 Pulse 106 H 02/20/25 03:10 Resp 20 02/20/25 03:10 BP 154/73 H 02/20/25 03:10 Pulse Ox 99 02/20/25 02:07 O2 Del Method Room Air 02/20/25 02:07 BMI result Body Mass Index 27.3 Constitutional - Awake and Alert, No apparent distress Eyes - PERRLA, EOMI Cardiovascular - S1S2, RRR, No edema Respiratory - Normal lung expansion, Normal respiratory effort, No respiratory distress, wheezing and rales bilaterally Gastrointestinal - NT / ND; +BS; No rebound or guarding Extremities - no calf tenderness bilaterally, no swelling Musculoskeletal - Normal inspection, normal ROM Skin - Warm/Dry, ecchymoses on arms bilaterally. no purpora Neurological - Alert & oriented x3 Psychological - Appropriate affect Objective Data Active Medications Acetaminophen (Acetaminophen 325 Mg Tablet) 650 mg PO Q6H PRN PRN Reason: Pain, Mild 1-3,fever,headache Calcium Carbonate (Calcium Carbonate 750 Mg Tab.Chew) 750 mg PO Q4H PRN PRN Reason: Heartburn Magnesium Hydroxide (Milk Of Magnesia 30 Ml Oral.Susp) 30 ml PO DAILY PRN PRN Reason: Constipation Melatonin (Melatonin 3 Mg Tablet) 6 mg PO BEDTIME PRN PRN Reason: Insomnia Morphine Sulfate (Morphine Sulfate 4 Mg/Ml Cartridge) 2 mg IVPUSH Q4H PRN; Protocol PRN Reason: Pain, Severe (Pain Scale 7-10) Ondansetron HCl (Ondansetron Hcl 4 Mg/2 Ml Vial) 4 mg IVPUSH Q8H PRN PRN Reason: Nausea and Vomiting Oxycodone HCl (Oxycodone Hcl Immed Release 5 Mg Tablet) 5 mg PO Q6H PRN PRN Reason: Pain, Moderate(Pain Scale 4-6) Pantoprazole Sodium (Pantoprazole Sodium 40 Mg/10 Ml Vial) 40 mg IVPUSH BID@0630,1630 VICKY Sodium Chloride (0.9 % Sodium Chloride Flush 3 Ml Syringe) 3 ml IVFLUSH QSHIFT VICKY Last Admin: 02/20/25 00:08 Dose: Not Given Documented By: JOAN Non-Admin Reason: IV Running Labs 02/20/25 06:18 02/20/25 06:18 Labs: Laboratory Results - last 24 hr 02/19/25 02/19/25 02/19/25 17:32 21:00 23:44 MCV 95.9 MCH 33.3 H MCHC 34.8 RDW 19.9 H Plt Count 22 L D MPV 12.1 Immature Gran % (Auto) 0.7 H Neut % (Auto) 81.6 H Lymph % (Auto) 8.9 L [place] % (Auto) 7.7 Eos % (Auto) 0.9 Baso % (Auto) 0.2 Lymph # (Auto) 1.2 [place] # (Auto) 1.1 Eos # (Auto) 0.1 Baso # (Auto) 0.0 Abs Immat Gran (auto) 0.09 H Absolute Neuts (auto) 11.1 H Absolute Nucleated RBC 0.000 Nucleated RBC % (auto) 0.0 Anion Gap 14 Estim Creat Clear Calc 107.8 Estimated GFR > 60 Random Glucose 108 Calcium 8.3 L Magnesium 1.9 Total Bilirubin 2.1 H Direct Bilirubin 1.1 H AST 136 H ALT 77 H Alkaline Phosphatase 331 H Troponin I High Sens 31.1 H Total Protein 6.6 Albumin 2.8 L Lipase 21 Urine Color Urine Appearance Urine pH Ur Specific [place] Urine Protein Urine Glucose (UA) Urine Ketones Urine Blood Urine Nitrite Ur Leukocyte Esterase Urine RBC Urine WBC Ur Squamous Epith Cells Urine Bacteria Hyaline Casts Stool Occult Blood POSITIVE Blood Type B Positive Antibody Screen NEGATIVE 02/20/25 02/20/25 04:50 06:18 MCV 98.6 H MCH 32.9 MCHC 33.3 RDW 20.4 H Plt Count 24 L MPV Not Reportable Immature Gran % (Auto) 0.7 H Neut % (Auto) 86.1 H Lymph % (Auto) 5.7 L [place] % (Auto) 6.8 Eos % (Auto) 0.4 Baso % (Auto) 0.3 Lymph # (Auto) 0.8 L [place] # (Auto) 0.9 Eos # (Auto) 0.1 Baso # (Auto) 0.0 Abs Immat Gran (auto) 0.09 H Absolute Neuts (auto) 11.6 H Absolute Nucleated RBC 0.000 Nucleated RBC % (auto) 0.0 Anion Gap 15 Estim Creat Clear Calc 107.8 Estimated GFR > 60 Random Glucose 102 Calcium 8.2 L Magnesium Total Bilirubin Direct Bilirubin AST ALT Alkaline Phosphatase Troponin I High Sens Total Protein Albumin Lipase Urine Color Dark Yellow Urine Appearance Clear Urine pH 5.5 Ur Specific [place] >= 1.030 H Urine Protein 30 (1+) H Urine Glucose (UA) Negative Urine Ketones Negative Urine Blood Moderate (2+) H Urine Nitrite Negative Ur Leukocyte Esterase Trace H Urine RBC 6-10 H Urine WBC 21-50 H Ur Squamous Epith Cells 3-5 Urine Bacteria 4+ Hyaline Casts 0-2 Stool Occult Blood Blood Type Antibody Screen Assessment and Plan (1) Thrombocytopenia: Status: Acute (2) New onset of congestive heart failure: Status: Acute Plan 64-year-old female with a past medical history of metastatic breast cancer status post chemo/radiotherapy/surgery, metastatic gallbladder cancer-completed chemotherapy; history of partial hepatectomy, cholecystectomy, lumpectomy; CAD, arthritis, neuropathy, GERD, pulmonary embolism-not on anticoagulation secondary to GI bleed; with 2 recent admissions in the end of December for acute anemia secondary to GI blood loss-diagnosed gastric antral vascular ectasia; acute on chronic thrombocytopenia; received blood transfusions and subsequently discharged home on 01/31/2025, and a repeat admission 02/03/25 for acute on chronic anemia with repeat EGD showing ulcerated mucosa areas from prior APC with mild oozing, duodenal bulb with area of oozing with duodenitis s/p clip and hemo spray. She also received 3 units of PRBC, 1 unit of platelets and 1 unit of FFP with a goal to keep platelets greater than 40. Ultimately she was discharged home on 02/06/2025, and now she returns to the ED again today due to generalized weakness, shortness of breath and bloody stools. acute on chronic thrombocytopenia with associated weakness and abd pain Secondary to malignancy - PLT 22. Received 1 FFP in the ED. improved marginally to 24 - LFTs at baseline but alk phos increasing, now [address] with increased liver mets - per Dr. Meadows, patient should be made hospice. No further FFP. Discuss with Dr. Doan tomorrow - given FFP in ED - monitor CBC - platelet goal 40 REEVES less likely r/t anemia CXR today shows interstitial edema and pleural effusion BNP 349 Initiate Lasix 40 mg daily Cardiology consult Echocardiogram Strict I&O Cardiac diet chronic anemia - hgb 9.7, improved from recent admission - occult stool test positive. Per GI, no active bleeding. DC IV PPI. Resume p.o. - A/P CT angio without acute bleed or findings - advance diet - monitor CBC hyponatremia -- appears chronic - Na 129 - given 1L NS in ED - follow BMP hx PE - no anticoagulation due to recent GI bleed. s/p IVC filter - chronic tachycardia, likley due to anemia. no hypoxia. continue to monitor metastatic cholangiocarcinoma - followed by [facility] and [facility] full code VTE prophy: pneumoboots Ongoing inpatient stay for IV diuresis, expert consultation Quality Stroke Does the patient have a stroke diagnosis?: No VTE Prior VTE?: Yes VTE Risk Level:: Medical - moderate - high VTE Device Contraindication: N/A - Device Ordered VTE Drug Contraindication: Treatment Not Indicated
--- NOTE | 2025-02-20 10:28 | PHA.MEDREC ---
Addendum entered by Laurie Berrios [facility] 02/20/25 10:49: Reviewed Original Note: Pharmacy Consult ? Medication Reconciliation Pharmacy has completed the medication reconciliation. Spoke with patient to confirm medications. She reports she takes both omeprazole (once in the morning) and pantoprazole (bid). She uses furosemide daily as needed for swelling. She has not started levofloxacin yet because it was OOS at the pharmacy, her son is picking it up today. She is no longer taking any cancer medications (stopped around 3 weeks ago - exemestane), eliquis, and gabapentin. She is not using anything for mouth sores either as it was only related to her cancer medication. Patient reports taking iron, omeprazole, and vitamin D3 yesterday morning.
--- NOTE | 2025-02-20 11:20 | CONS_ITS ---
DATE OF SERVICE: 02/20/2025 REFERRING PHYSICIAN: KAMERON Fine REASON FOR CONSULTATION: Anemia and blood in stool. HISTORY OF PRESENT ILLNESS: The patient is a pleasant 64-year-old woman, who was admitted to the hospital after presenting to the emergency room yesterday with complaints of weakness, shortness of breath, and dark stools. She has been hospitalized recently on several occasions with thrombocytopenia and GI blood loss and last underwent upper endoscopy on February 03 for treatment of GI blood loss. She had ulcerated areas from previous APC treatments and some oozing, which were treated with coagulant spray. Second area of oozing in the duodenum was also treated with this after clipping. Since that time, she has initially done well, but then felt weak and came to the emergency room. In the emergency department, she was noted to have a stable hematocrit without any chasity melena. Platelet counts have been low down to 22 and she was given single donor platelets today. She has not required packed red blood cell transfusion. PAST MEDICAL HISTORY: 1. Breast chemotherapy and radiation. 2. Metastatic gallbladder cancer, status post chemotherapy, on oral medication with history of partial hepatectomy, cholecystectomy, and lymphadenectomy. 3. Pulmonary embolism. 4. DVT. 5. Thrombocytopenia. 6. Coronary disease. 7. Elevated liver function tests. 8. Osteoarthritis. 9. Osteopenia. 10. Peripheral neuropathy. CURRENT MEDICATIONS: Her current medication list is reviewed in the chart. ALLERGIES: PENICILLIN AND STREPTOMYCIN. FAMILY HISTORY: This is reviewed and is noncontributory. SOCIAL HISTORY: There is no current tobacco, alcohol, or substance abuse. REVIEW OF SYSTEMS: SKIN: No pruritus. HEENT: Negative. CARDIOPULMONARY: No shortness of breath or chest pain. GASTROINTESTINAL: As above. GENITOURINARY: Negative. NEUROPSYCHIATRIC: Negative. PHYSICAL EXAMINATION: GENERAL: Shows a pleasant female, in no acute distress. VITAL SIGNS: Reviewed in the electronic medical record and are stable. SKIN: Anicteric. HEENT: Shows no scleral icterus. NECK: Without lymphadenopathy or thyromegaly. LUNGS: Clear. HEART: Shows a regular rate and rhythm. S1, S2. No murmur. ABDOMEN: Soft without focal masses or tenderness. Bowel sounds are present. No organomegaly is noted. EXTREMITIES: Without edema. LABORATORY DATA AND IMAGING STUDIES: Reviewed. IMPRESSION: Anemia with blood in stool. At this time, she seems stable with no significant GI blood loss based on her hematocrit. I do not think she needs repeat endoscopy at this time. Her major issue seems to be thrombocytopenia and I agree with platelet transfusion and hematology consult as appropriate. Thanks for asking me to see her. I will follow her in the hospital as needed. MD DENNIS Short/PORFIRIO / [phone]
[2025-02-20] MEDS: Furosemide 40 MG/4 ML VIAL IVPUSH (11:39)
[2025-02-20 12:19] LABS: B Type Natriuretic Peptide 1712 pg/mL (<100)
[2025-02-20] MEDS: Sucralfate 1 GM TABLET PO (15:43)
[2025-02-20] MEDS: 0.9 % Sodium Chloride Flush 3 ML SYRINGE IVFLUSH ×2 (15:45→20:54)
[2025-02-20] MEDS: Simethicone 80 MG TAB.CHEW 160 MG PO (15:47)
--- NOTE | 2025-02-20 16:35 | MHC.CM.PN ---
PT REPORTS SHE HAS BEEN AT HER SONS HOME SINCE HER PREVIOUS ADMISSION SHE SAYS SHE HAD [facility] FOR ONE VISIT, BUT THEY DON'T DO ANYTHING SHE SAYS HER DAUGHTER IN LAW HAS BEEN HELPING SHE USES NO DME AT BASELINE HCP ON FILE PCP: YANN HUANG DCP: RETURN TO SONS HOME WITH RESUMPTION OF FAMILY SUPPORT FAMILY TO TRANSPORT
[2025-02-20] MEDS: Ferrous Sulfate 324 MG TABLET.DR PO (20:54)
[2025-02-21 04:00] VITALS: BP 128/62; PULSE 95; RESP 18; TEMP 36.2; O2SAT 96
[2025-02-21] MEDS: Omeprazole 20 MG CAPSULE.DR PO (05:45)
[2025-02-21 06:51] LABS: Anion Gap 16 (12-20); Blood Urea Nitrogen 15 mg/dL (9-16); Calcium 8.3 mg/dL (8.4-10.2); Carbon Dioxide 19 mmol/L (22-29); Chloride 97 mmol/L (96-108); Creatinine Clr Calc Pharmacy 94.9; Estimated Glomerular Filt Rate > 60; Glucose Random 109 mg/dL (60-115); Potassium 4.4 mmol/L (3.3-5.1); Sodium 128 mmol/L (135-145)
--- NOTE | 2025-02-21 07:00 | CA_ITS ---
Transthoracic Echocardiogram Patient (Last, First, Middle): Susana Sanchez, Gender: Female Date of : 1960 Age: 64 Procedure Date: 02/21/2025 Procedure Type: Transthoracic Echocardiogram Location: S3E Height: 162.56 cm Weight: 71.67 kg BSA: 1.77 m2 Heart Rate: 99 bpm BP: 128 / 62 mmHg Call Center Receptionist: SB Referring MD: Adelita MELO Symptoms: new onset chf Study Quality: Fair/pt term exam ECG Rhythm: Sinus Conclusions: - Patient unable to tolerate study. Limited images. - LVEF appears moderately reduced. Difficult to quantify. - Echodensity on the aortic valve suggestive of vegetation; 1.2x0.6cm. Mild aortic regurgitation based on available images. Findings Procedure Information The quality of the study was technically difficult. The study quality is limited by the patients inability to tolerate the test. Left Ventricle Normal left ventricular cavity size. There is normal left ventricular wall thickness. Regional wall motion abnormalities can not be excluded due to suboptimal endocardial definition. LVEF appears moderately reduced. Difficult to quantify. Aortic Valve There is mild aortic valve regurgitation. Echodensity on the aortic valve suggestive of vegetation; 1.2 x 0.6cm. Possible mild aortic stenosis. Mitral Valve There is moderate anterior mitral leaflet thickening. There is moderate mitral annular calcification. There is mild mitral valve regurgitation. There is no mitral valve stenosis. Pulmonic Valve There is trace pulmonic valve regurgitation. Tricuspid Valve There is mild tricuspid valve regurgitation. Mild pulmonary hypertension is present. Great Vessels The asc aorta is normal in size. Pericardium/Pleural There is no evidence of pericardial effusion. Prior Study Comparison Changes noted compared to prior study dated: 06/28/2024. LVEF reduced. see comments on aortic valve. Measurements 2D Linear Measurements IVSd: 0.80 0.6-0.9/0.6-1.0 cm LVIDd: 5.02 3.9-5.3/4.2-5.9 cm LVIDd Index: 2.84 2.4-3.2/2.2-3.1 cm/m2 LVIDs: 3.90 2.0-3.6 cm LVPWd: 0.60 0.7-1.1 cm Ao Root: 2.90 2.1-3.5 cm LA Diam: 3.60 2.7-3.8/3.0-4.0 cm LAIDs Index: 2.03 1.5-2.3 cm/m2 LV Mass: 143.88 67-162/88-224 g LV Mass Index: 81.29 43-95/49-115 g/m2 LVOT Diam: 2.20 3.0+(-)1.3 cm 2D Systolic Function EF 4C: 27.20 >55% EF 2C: 26.50 >55% EF BiP: 26.50 >55% Mitral Valve MV Pk E: 1.07 MV PK A: 0.64 MV Decel Time: 109.00 E/A: 1.70 PHT: 32.00 MVA PHT: 6.88 Decel Lander: 9.81 Aortic Valve AoV Pk Mirza: 1.50 AoV Mn Mirza: 1.21 AoV VTI: 0.28 AoV Pk Grad: 9.00 Aov Mn Grad: 6.00 ALIS Cont.VTI: 1.71 AI Pk Mirza: 4.22 AI Lander: 6.28 LVOT LVOT Pk Mirza: 0.74 LVOT Mn Mirza: 0.50 LVOT VTI: 0.13 LVOT Pk Grad: 2.00 LVOT Mn Grad: 1.00 LVOT Diam: 2.20 LVOT Area: 3.80 Diastolic Function MV Pk E: 1.07 MV Pk A: 0.64 E/A: 1.70 Tricuspid Valve TR Pk Mirza: 3.23 TR Pk Grad: 42.00 RA Press: 3.00 RVSP: 45.00 Great Vessels Aorta Ao Root-2D: 2.90 2.0-3.7 cm Ao Asc: 3.40 2.1-3.4 cm Pulmonary Valve PV Pk Mirza: 0.60 Peak PV Grad: 1.00 Updated in Other Vendor System with Status of Final Jadiel Fitzgerald MD electronically signed on 02/21/2025 12:26:31 PM with status of Final
[2025-02-21 07:13] LABS: B Type Natriuretic Peptide 1324 pg/mL (<100)
[2025-02-21] MEDS: Sucralfate 1 GM TABLET PO ×2 (07:31→17:01)
[2025-02-21] MEDS: Cholecalciferol (Vitamin D3) 25 MCG TABLET PO (07:32)
[2025-02-21] MEDS: Furosemide 40 MG/4 ML VIAL IVPUSH (07:32)
[2025-02-21] MEDS: 0.9 % Sodium Chloride Flush 3 ML SYRINGE IVFLUSH ×3 (07:36→21:20)
[2025-02-21 07:38] VITALS: BP 129/58; PULSE 97; RESP 16; TEMP 36.2; O2SAT 98
[2025-02-21] MEDS: Calcium Carbonate 750 MG TAB.CHEW PO (07:38)
[2025-02-21 09:41] LABS: Basophils Percent Auto 0.2 % (0-2); Eosinophils Absolute Auto 0.1 X10*3/uL (0.0-0.4); Eosinophils Percent Auto 0.6 % (0-4); Hematocrit 28.1 % (37.0-47.0); Hemoglobin 9.6 g/dl (12.0-16.0); Imm Gran Abs Auto 0.08 X10*3/uL (0.00-0.03); Imm Gran Pct Auto 0.6 % (0.0-0.4); Lymphocytes Absolute Auto 1.1 X10*3/uL (1.2-4.9); Lymphocytes Percent Auto 8.1 % (20-40); Mean Corpuscular HGB Conc 34.2 g/dl (31.0-35.0); Mean Corpuscular Hemoglobin 33.4 pg (27.0-33.0); Mean Corpuscular Volume 97.9 fL (80.0-98.0); Monocytes Absolute Auto 0.8 X10*3/uL (0.1-1.2); Neutrophils Absolute Auto 11.3 x10*3/uL (2.0-8.3); Neutrophils Percent Auto 84.5 % (45-73); Platelet Count 21 X10*3/uL (160-400); Red Blood Count 2.87 X10*6/uL (4.20-5.50); Red Cell Distribution Width 20.7 % (11.0-16.0); White Blood Count 13.3 X10*3/uL (4.8-10.8)
[2025-02-21 09:43] LABS: MANUAL DIFF FLAG NO
[2025-02-21] MEDS: Ferrous Sulfate 324 MG TABLET.DR PO ×2 (09:48→21:19)
--- NOTE | 2025-02-21 11:30 | MHC.CM.PN ---
Patient not medically cleared for dc. No change to dc plan - home w/ family support. CM will continue to follow.
[2025-02-21 12:00] VITALS: BP 124/58; PULSE 96; RESP 17; TEMP 36.6; O2SAT 98
--- NOTE | 2025-02-21 14:18 | P.CNHO_ITS ---
Subjective - Subjective Chief complaint: Consult for: Metastatic gallbladder cancer. Anemia and thrombocytopenia. Patient: known to practice within the last 3 years Consult date: 02/21/25 Requesting Physician: Ashleigh Mirza. Primary Care Provider: Adria Rubio MD Family Provider: Adria Rubio MD Medical Summary: DIAGNOSIS: 1. METASTATIC GALLBLADDER CANCER. 2. ANEMIA AND THROMBOCYTOPENIA. 3. HISTORY OF BREAST CANCER. Restaurant Assistant Utilized?: No - Thai Speaking HPI - Consult Narrative Reason for consult: Consult for: 1. Gallbladder cancer. 2. Anemia and thrombocytopenia. Narrative: Susana Sanchez is a 64 year old unfortunate lady, with a history of metastatic gallbladder cancer and breast cancers. She has had two recent admissions in the end of December for acute anemia secondary to GI blood loss-diagnosed gastric antral vascular ectasia; acute on chronic thrombocytopenia. She received blood transfusions and subsequently discharged home on 01/31/2025. Repeat admission 02/03/25 for acute on chronic anemia with repeat EGD showing ulcerated mucosa areas from prior APC with mild oozing, duodenal bulb with area of oozing with duodenitis s/p clip and hemo spray. She received 3 units of PRBC, 1 unit of platelets and 1 unit of FFP with a goal to keep platelets greater than 40. Ultimately she was discharged home on 02/06/2025. She then returned to the ED on 02/19, due to generalized weakness, shortness of breath and bloody stools. She has abdominal tenderness in the right upper quadrant. She reports that she can not function at home and feels much worse than she did before. She denies any nausea, vomiting, fever, chills, blurry vision, vision loss, chest pain, back pain, night sweats or urinary symptoms including frequency, urgency or dysuria. Review of Systems 2 Constitutional: Constitutional: Reports body ache(s), Denies chills, Reports fatigue, Denies fever(s) and Denies frequent falls Eyes: Eyes: Denies blurry vision and Denies change in vision ENT: Denies nasal congestion, Denies nasal discharge and Denies sore throat Cardiovascular: Cardiovascular: Denies chest pain, Denies syncope and Denies dyspnea Respiratory: Respiratory: Denies cough, Denies dyspnea and Denies wheezing Gastrointestinal: Gastrointestinal: Reports as per HPI Genitourinary: Genitourinary: Denies dysuria Musculoskeletal: Musculoskeletal: Reports muscle weakness Integumentary/Breasts: Skin/Breast: Denies rash Neurologic: Denies confusion, Denies syncope and Denies frequent falls Psychiatric: Psychiatric: Denies confusion Endocrine: Endocrine: Reports fatigue Allergic/Immunologic: Allergic/Immunologic: Denies wheezing [facility] Medical History:) Chemotherapy-induced neuropathy Metastatic cholangiocarcinoma DVT (deep venous thrombosis) Metastatic disease Metastatic cancer to liver Pulmonary embolism Metastasis from gallbladder cancer Pulmonary embolism Pulmonary nodules Pneumonitis Chest pain Chronic cough Vaginal yeast infection Breast lump on right side at 5 o'clock position History of colon polyps Breast cancer, left (~10/2016) Spondylosis Back pain Neuropathy Surgical History:) Hx of cholecystectomy History of esophagogastroduodenoscopy (EGD) History of lumpectomy of right breast (06/26/22) Hx of vein stripping Hx of colonoscopy (~10/2018) S/P breast lumpectomy Family History:) Mother No problems noted. Father No problems noted. Other No family history of cancer Social History:) Household Members: Children Household Members Other:: currently lives with her son Housing: House Are you a primary career coordinator to a significant other at home: No Do you presently have visiting nurse or other home services: No Unable to assess alcohol history related to: Unknown Alcohol intake: never Comment: med with oxycodone 5 mg po in PACU Patient Tobacco Use Status: Never used Tobacco Review of Systems - Constitutional Reports system reviewed and no additional complaints, except as documented, Reports anorexia, Reports fatigue, Reports lack of energy, Reports malaise, Reports poor appetite, Reports weight loss, Denies fever(s) - Eyes Reports system reviewed and no additional complaints, except as documented - ENT Reports system reviewed and no additional complaints, except as documented - Cardiovascular Reports system reviewed and no additional complaints, except as documented - Respiratory Reports no additional respiratory complaints - Gastrointestinal Reports system reviewed and no additional complaints, except as documented, Reports abdominal pain, Reports black, tarry stools, Reports nausea - Genitourinary Reports no additional female genitourinary complaints - Musculoskeletal Reports system reviewed and no additional complaints, except as documented - Integumentary/Breasts Skin/Breast: Reports no additional skin complaints - Neurologic Reports weakness, Denies confusion, Denies dizziness, Denies syncope, Denies frequent falls, Denies loss of vision, Denies numbness, Denies tingling - Psychiatric Reports system reviewed and no additional complaints, except as documented - Endocrine Reports no additional endocrine complaints - Hematologic/Lymphatic Reports system reviewed and no additional complaints, except as documented - Allergic/Immunologic Reports system reviewed and no additional complaints, except as documented Oncology Screenings - ECOG Performance Status ECOG Performance Status: 1 [facility] Medical History: Medical History (Last Reviewed 02/24/25 @ 09:18 by Jennifer Oliver PT) Back pain Breast cancer, left Onset Date: ~10/2016 Breast lump on right side at 5 o'clock position Chemotherapy-induced neuropathy Chest pain Chronic cough DVT (deep venous thrombosis) History of colon polyps Metastasis from gallbladder cancer Metastatic cancer to liver Metastatic cholangiocarcinoma Metastatic disease Neuropathy Pneumonitis Pulmonary embolism Pulmonary embolism Pulmonary nodules Spondylosis Vaginal yeast infection Functional capacity: uses cane/walker Patient : No Family History: Family History (Last Reviewed 02/23/25 @ 14:23 by Krystle Ferreira MD) Mother No problems noted. Father No problems noted. Other No family history of cancer Surgical History: Surgical History (Last Updated 02/28/25 @ 14:40 by [place]) History of esophagogastroduodenoscopy (EGD) History of lumpectomy of right breast Onset Date: 06/26/22 Hx of cholecystectomy Hx of colonoscopy Onset Date: ~10/2018 Hx of vein stripping S/P breast lumpectomy Social History: Social History (Last Reviewed 02/23/25 @ 14:23 by Krystle Ferreira MD) Living Situation History: Household Members: Children Household Members Other:: currently lives with her son Housing: House Are you a primary career coordinator to a significant other at home: No Do you presently have visiting nurse or other home services: No Alcohol History: Unable to assess alcohol history related to: Unknown Tobacco History: Patient Tobacco Use Status: Never used Tobacco e-Cigarette/Vaping Use: Never Used Second Hand Smoke Exposure: No Occupation Assessmet: service: No Current occupational status: disabled Current occupation: rt handed Home Medications and Allergies Current Medications: Current Medications Acetaminophen (Acetaminophen 325 Mg Tablet) 650 mg PO Q6H PRN PRN Reason: Pain, Mild 1-3,fever,headache Calcium Carbonate (Calcium Carbonate 750 Mg Tab.Chew) 750 mg PO Q4H PRN PRN Reason: Heartburn Last Admin: 02/21/25 07:38 Dose: 750 mg Ferrous Sulfate (Ferrous Sulfate 324 Mg Tablet.) 324 mg PO BID COUNTS INCLUDE 234 BEDS AT THE [facility] Last Admin: 02/21/25 09:48 Dose: 324 mg Furosemide (Furosemide 40 Mg/4 Ml Vial) 40 mg IVPUSH DAILY COUNTS INCLUDE 234 BEDS AT THE [facility]; Protocol Last Admin: 02/21/25 07:32 Dose: 40 mg Magnesium Hydroxide (Milk Of Magnesia 30 Ml Oral.Susp) 30 ml PO DAILY PRN PRN Reason: Constipation Melatonin (Melatonin 3 Mg Tablet) 6 mg PO BEDTIME PRN PRN Reason: Insomnia Morphine Sulfate (Morphine Sulfate 4 Mg/Ml Cartridge) 2 mg IVPUSH Q4H PRN; Protocol PRN Reason: Pain, Severe (Pain Scale 7-10) Omeprazole (Omeprazole 20 Mg Capsule.) 20 mg PO DAILY@0630 COUNTS INCLUDE 234 BEDS AT THE [facility] Last Admin: 02/21/25 05:45 Dose: 20 mg Ondansetron HCl (Ondansetron Hcl 4 Mg/2 Ml Vial) 4 mg IVPUSH Q8H PRN PRN Reason: Nausea and Vomiting Oxycodone HCl (Oxycodone Hcl Immed Release 5 Mg Tablet) 5 mg PO Q6H PRN PRN Reason: Pain, Moderate(Pain Scale 4-6) Simethicone (Simethicone 80 Mg Tab.Chew) 160 mg PO BID PRN PRN Reason: abdominal distention Last Admin: 02/20/25 15:47 Dose: 160 mg Sodium Chloride (0.9 % Sodium Chloride Flush 3 Ml Syringe) [facility] Last Admin: 02/21/25 07:36 Dose: 3 ml Sucralfate (Sucralfate 1 Gm Tablet) 1 gm PO BIDAC COUNTS INCLUDE 234 BEDS AT THE [facility] Last Admin: 02/21/25 07:31 Dose: 1 gm Vitamin D (Cholecalciferol (Vitamin D3) 25 Mcg Tablet) 25 mcg PO DAILY COUNTS INCLUDE 234 BEDS AT THE [facility] Last Admin: 02/21/25 07:32 Dose: 25 mcg Home Medications ?Medication ?Instructions ?Recorded ?Confirmed ?Type sucralfate 1 gram tablet 1 g PO BIDAC 02/03/25 02/20/25 History furosemide 20 mg tablet (Lasix) 20 mg PO DAILY PRN Edema 02/20/25 History Allergies Allergy/AdvReac Type Severity Reaction Status Date / Time Penicillins (PENICILLINS) Allergy Severe ANAPHYLAXIS, Verified 02/19/25 16:56 swelling streptomycin (STREPTOMYCIN) Allergy Severe ANAPHYLAXIS Verified 02/19/25 16:56 Physical Exam Vital signs: Vital Signs Temp 97.8 F 02/21/25 12:00 Pulse 96 02/21/25 12:00 Resp 17 02/21/25 12:00 BP 124/58 L 02/21/25 12:00 Pulse Ox 98 02/21/25 12:00 O2 Del Method Room Air 02/21/25 12:00 Intake & Output 02/20/25 02/21/25 02/21/25 18:59 06:59 18:59 Intake Total 760 / 760 Output Total 400 / 500 100 / 500 500 / 500 Balance -400 / 260 660 / 260 -500 / -500 Urine Output (Average ml/kg/hr) 0.46 0.12 0.58 Intake: Intake, Oral Amount 760 / 760 Output: Output, Urine Amount 400 / 500 100 / 500 500 / 500 Other: Eating (Feeding) Ability Independent Number of Unmeasured Voids 2 Number of Bowel Movements 1 1 Urine Bathroom Bathroom Urine Color Yellow Tea Last Bowel Movement 02/19/25 02/20/25 02/21/25 Stool Bedside Commode Bathroom Stool Amount Small Scant Stool Color Brown Stool Consistency Loose Weight 72.1 kg - Constitutional Present: moderate distress, chronically ill appearing - Routine HEENT Exam Head: Present: normocephalic Eye: Present: normal appearance ENT: Present: mucous membranes moist - Routine Neck Exam Present: supple - Routine Respiratory Exam Present: CTAB - Routine Cardiovascular Exam Cardiovascular: Present: RRR, S1, S2 - Routine Abdominal Exam Present: soft, tenderness - Routine Skin Exam Present: intact, normal turgor - Routine Neurological Exam Present: alert, oriented X3 - Detailed Neurological Exam: Coma Scale Eye Opening: Spontaneous (4) Verbal Response: Oriented (5) Motor Response: Obeys commands (6) Shane Coma Scale Total: 15 - Routine Psychiatric Exam Present: depressed Hem/Onc Consult Result - Labs CBC & Chem 7: 02/24/25 05:41 02/24/25 05:41 Labs: Short CBC 02/21/25 Range/Units 09:31 WBC 13.3 H (4.8-10.8) X10*3/uL Hgb 9.6 L (12.0-16.0) g/dl Hct 28.1 L (37.0-47.0) % Plt Count 21 L (160-400) X10*3/uL [facility] 02/21/25 06:12 Sodium 128 L Potassium 4.4 Chloride 97 Carbon Dioxide 19 L BUN 15 Creatinine 0.59 Calcium 8.3 L Assessment and Plan Patient Active problem list reviewed?: Yes (1) Carcinoma of gallbladder Status: Acute Assessment and plan: 64-year-old unfortunate lady with a previous history of breast cancer. She then developed carcinoma of the gallbladder. She has had several treatments for this including, surgical resection followed by adjuvant chemotherapy. Then combined chemotherapy and radiation therapy. Followed by more chemotherapy. Targeted agents have also been tried based upon the Foundation testing of the tumor. Unfortunately the patient became significantly thrombocytopenic and could not continue this therapy. As of late she has had several episodes of GI bleeding, requiring admissions to the hospital. She was noted to have thrombocytopenia and GI blood loss and last underwent upper endoscopy on February 03 for treatment of GI blood loss. She had ulcerated areas from previous APC treatments and some oozing, which were treated with coagulant spray. Second area of oozing in the duodenum was also treated with this after clipping. She returned to the ED again on 02/19, due to generalized weakness, shortness of breath and bloody stools. She was noted to have abdominal tenderness in the right upper quadrant. She reports that she can not function at home and feels much worse than she did before. She denies any nausea, vomiting, fever, chills, blurry vision, vision loss, chest pain, back pain, night sweats or urinary symptoms including frequency, urgency or dysuria. DATABASE: CT abdomen pelvis from 02/19 revealed: 1. No acute vascular abnormalities. 2. New small right pleural effusion. 3. Interval increase in size of pulmonary nodules. 4. Hepatomegaly with innumerable hepatic metastases. Echocardiogram revealed: Normal left ventricular cavity size. There is normal left ventricular wall thickness. Regional wall motion abnormalities can not be excluded due to suboptimal endocardial definition. LVEF appears moderately reduced. Difficult to quantify. Aortic Valve There is mild aortic valve regurgitation. Echodensity on the aortic valve suggestive of vegetation; 1.2 x 0.6cm. Possible mild aortic stenosis. Mitral Valve There is moderate anterior mitral leaflet thickening. There is moderate mitral annular calcification. There is mild mitral valve regurgitation. There is no mitral valve stenosis. Pulmonic Valve There is trace pulmonic valve regurgitation. Tricuspid Valve There is mild tricuspid valve regurgitation. Mild pulmonary hypertension is present. CBC: WBC 13, HGB 9.7, HCT 28, PLT 22. LFTS: 2.1/331/136/77. IMPRESSION: 64-year-old lady with a history of gallbladder cancer. Status post surgery on 01/14/[address] Padilla at [facility]. She underwent partial hepatectomy with EN bloc cholecystectomy and lymphadenectomy for gallbladder adenocarcinoma. Pathology: Adenocarcinoma of the gallbladder, intestinal type with evidence of LVI. Tumor diameter: 3.5 cm. Invading the perimuscular connective tissue on the peritoneal side without serosal involvement, new line perimuscular connective tissue on the hepatic side without liver involvement. All margins were negative for invasive carcinoma. Distance from invasive carcinoma to the cystic duct margin was 2.8 cm. 2/3 periportal lymph nodes were positive for adenocarcinoma. Hepatic artery lymph node was negative for adenocarcinoma. Final classification:pT2b, pN1. The nodes were positive she has stage IIIB disease. I offered her systemic chemotherapy with cisplatin, Gemzar and durvalumab based regimen. Alternative to that would be FOLFOX. However the patient was initially not too keen on undergoing systemic chemotherapy since she already has residual neuropathy from the taxane with which she was treated for her breast cancer. I gave her some information about Gemcitabine, and Capecitabine Regimen for her to review. I referred her to [facility] to Dr. Cr, who treats hepatobiliary malignancies. She may be eligible for a clinical trial there. She had an appointment on 03/25/[address] Carlota Sunshine. The recommendation was to treat her with gemcitabine and capecitabine x4 cycles according to the SWOG 0809 trial. She will be re-staged after completion of the treatment. Will then undergo radiation along with oral Xeloda. Results: 35 months median overall survival as well as possible benefit at preventing disease recurrence. NGS testing was performed on her original tumor specimen by [facility]. This revealed: Negative. She was feeling short of breath on exertion. I proceeded with a CTA of the chest to check the status of her PEs. This was done on 03/09/24 and revealed: 1. No evidence of PE. 2. No evidence of aortic aneurysm. 3. Patchy groundglass attenuation left lung apex. 4. Platelike atelectasis right lower lobe. I switched her over to Eliquis from the Lovenox. She was started on Gemcitabine and capecitabine on 04/06/24. Cycle 2 on 04/27/24. Had cycle 3 on 05/18/24. She had cycle 4 on 06/08/24. She had some GI upset related to the Xeloda, otherwise she tolerated it well. I re-staged her with imaging. The CT scans were done on 06/30, and revealed: Hepatic steatosis. She had had Foundation testing , done on her tumor, to see if there is an actionable mutation that would benefit her. 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 The dose is 150 mg p.o. b.i.d. I sent prescription for Abemaciclib to [facility]. Unfortunately the insurance denied it. We have done several appeals, they still did not approve. One other medication that could be used is Everolimus. 10 mg orally daily. In view of her elevated LFTs will use 7.5 mg orally daily. This should be effective for her breast cancer, as well, in combination with Aromasin. Hopefully that will be able to buy her more time. She came in in December for an unscheduled visit complaining of worse pain. Had not been eating or drinking too well. She was noted to have a fever. Her heart rate was up to 130 per minute. She told me she did not take her Eliquis over the past couple of weeks. I was worried about a pulmonary embolism. I referred her to the emergency room for admission and further evaluation. 12/30/24: CTA: 1. POSITIVE examination for pulmonary embolus in segmental left lower lobe pulmonary arteries. These were not present previously. Low clot burden. No right heart strain or reflux of contrast into the IVC. 2. There is no evidence of acute aortic syndrome. 3. Extensive innumerable metastatic lesions present throughout the liver. These have extensively worsened when compared with most recent PET CT from [facility] 09/29/2024. 4. Numerous bilateral pulmonary nodules measuring up to 6 mm, highly suspicious for metastases. The majority of these are new or enlarged. 5. Subcentimeter mediastinal and bilateral hilar lymph nodes measuring She was treated for pulmonary embolism and underlying infection. According to the Foundation testing on her pathology, Everolimus would be effective as a targeted agent, with her particular mutation. Dose was decreased to 7.5 mg in view of her elevated LFTs. However the patient felt it was leading to side effects so she stopped taking it. Susana does understand her guarded prognosis. PLAN: I did discuss her condition with her son and [id number], L[place], explained to them the gravity of her situation. Discussed the option of hospice care. They will give it some thought. For now she would like to continue receiving blood and platelet products as indicated. Will continue supportive care as you are providing. THANK YOU, I will follow along with you, CC: Dr. Adria Rubio M.D. - Time Spent With Patient Time Spent with Patient (in minutes): 30
--- NOTE | 2025-02-21 15:09 | P.PNIM_ITS ---
Subjective Subjective Date of Service: 02/21/25 Interval History: follow-up thrombocytopenia, metastatic cholangiocarcinoma, shortness of breath No changes, patient is still complaining of shortness of breath. No chest pain, nausea or vomiting. Chronic edema. Ongoing weakness. BNP yesterday elevated at 1700. Echo today shows endocarditis. Goals of care to be discussed with Dr. Doan later today. Platelets remain low at 21 Constitutional Constitutional: Denies body ache(s), Denies chills, Denies fever(s) and Denies headache(s) Eyes Eyes: Denies decreased night vision and Denies loss of vision ENT Ears, Nose, Mouth, and Throat: Denies headache(s), Denies nasal congestion and Denies sore throat Cardiovascular Cardiovascular: Denies chest pain, Reports leg edema and Reports dyspnea Respiratory Respiratory: Denies cough, Reports dyspnea and Denies wheezing Gastrointestinal Gastrointestinal: Denies abdominal pain, Denies nausea and Denies vomiting Genitourinary Genitourinary: Denies dysuria Musculoskeletal Musculoskeletal: Denies myalgias Integumentary/Breasts Skin/Breast: Denies rash Neurologic Neurologic: Denies confusion, Denies headache(s) and Denies loss of vision Psychiatric Psychiatric: Denies confusion Allergic/Immunologic Allergic/Immunologic: Denies wheezing Physical Exam 2 Vital Signs: Vital Signs: Last Vital Signs Temp 97.8 F 02/21/25 12:00 Pulse 96 02/21/25 12:00 Resp 17 02/21/25 12:00 BP 124/58 L 02/21/25 12:00 Pulse Ox 98 02/21/25 12:00 O2 Del Method Room Air 02/21/25 12:00 BMI result Body Mass Index 27.3 General: AOx3, no acute distress Resp: diminished throughout no wheezing CVS: S1, S2, RRR GI: +BS, NT, no distention Skin: Warm, dry Neuro: Cranial nerves II-XII grossly intact bilaterally. Motor grossly intact bilaterally Extremities: No edema. edematous but non-pitting Psych: Appropriate affect Const: General: No confusion Orientation/consciousness: No confusion Neuro: General: No confusion Objective Data Active Medications Acetaminophen (Acetaminophen 325 Mg Tablet) 650 mg PO Q6H PRN PRN Reason: Pain, Mild 1-3,fever,headache Calcium Carbonate (Calcium Carbonate 750 Mg Tab.Chew) 750 mg PO Q4H PRN PRN Reason: Heartburn Last Admin: 02/21/25 07:38 Dose: 750 mg Documented By: ENMA Ceftriaxone Sodium (Ceftriaxone Sodium 1 Gm Vial) 1 gm IVPUSH Q24H [facility] Ferrous Sulfate (Ferrous Sulfate 324 Mg Tablet.) 324 mg PO BID [facility] Last Admin: 02/21/25 09:48 Dose: 324 mg Documented By: ENMA Furosemide (Furosemide 40 Mg/4 Ml Vial) 40 mg IVPUSH DAILY [facility]; Protocol Last Admin: 02/21/25 07:32 Dose: 40 mg Documented By: ENMA Magnesium Hydroxide (Milk Of Magnesia 30 Ml Oral.Susp) 30 ml PO DAILY PRN PRN Reason: Constipation Melatonin (Melatonin 3 Mg Tablet) 6 mg PO BEDTIME PRN PRN Reason: Insomnia Morphine Sulfate (Morphine Sulfate 4 Mg/Ml Cartridge) 2 mg IVPUSH Q4H PRN; Protocol PRN Reason: Pain, Severe (Pain Scale 7-10) Omeprazole (Omeprazole 20 Mg Capsule.) 20 mg PO DAILY@0630 [facility] Last Admin: 02/21/25 05:45 Dose: 20 mg Documented By: CHAZ Ondansetron HCl (Ondansetron Hcl 4 Mg/2 Ml Vial) 4 mg IVPUSH Q8H PRN PRN Reason: Nausea and Vomiting Oxycodone HCl (Oxycodone Hcl Immed Release 5 Mg Tablet) 5 mg PO Q6H PRN PRN Reason: Pain, Moderate(Pain Scale 4-6) Pharmacy Consult (Consult Rx Vancomycin Dosing) 1 each MISCELLANE DAILY PRN PRN Reason: Consult order Simethicone (Simethicone 80 Mg Tab.Chew) 160 mg PO BID PRN PRN Reason: abdominal distention Last Admin: 02/20/25 15:47 Dose: 160 mg Documented By: JOSE DANIEL Sodium Chloride (0.9 % Sodium Chloride Flush 3 Ml Syringe) 3 ml IVFLUSH QSHIFT [facility] Last Admin: 02/21/25 07:36 Dose: 3 ml Documented By: ENMA Sucralfate (Sucralfate 1 Gm Tablet) 1 gm PO BIDAC [facility] Last Admin: 02/21/25 07:31 Dose: 1 gm Documented By: ENMA Vitamin D (Cholecalciferol (Vitamin D3) 25 Mcg Tablet) 25 mcg PO DAILY [facility] Last Admin: 02/21/25 07:32 Dose: 25 mcg Documented By: ENMA Labs 02/21/25 09:31 02/21/25 06:12 Labs: Laboratory Results - last 24 hr 02/21/25 02/21/25 06:12 09:31 MCV 97.9 MCH 33.4 H MCHC 34.2 RDW 20.7 H Plt Count 21 L MPV Not Reportable Immature Gran % (Auto) 0.6 H Neut % (Auto) 84.5 H Lymph % (Auto) 8.1 L [place] % (Auto) 6.0 Eos % (Auto) 0.6 Baso % (Auto) 0.2 Lymph # (Auto) 1.1 L [place] # (Auto) 0.8 Eos # (Auto) 0.1 Baso # (Auto) 0.0 Abs Immat Gran (auto) 0.08 H Absolute Neuts (auto) 11.3 H Absolute Nucleated RBC 0.000 Nucleated RBC % (auto) 0.0 Anion Gap 16 Estim Creat Clear Calc 94.9 Estimated GFR > 60 Random Glucose 109 Calcium 8.3 L B-Natriuretic Peptide 1324 H Microbiology Microbiology Results: Microbiology 02/20/25 Unknown Urine Culture - Preliminary Urine clean catch - Clean Catch Midstream Gram negative jorden Assessment and Plan (1) 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: Status: Acute (2) Thrombocytopenia: Status: Acute (3) Hyponatremia: Status: Acute (4) Endocarditis: Status: Acute Plan 64-year-old female with a past medical history of metastatic breast cancer status post chemo/radiotherapy/surgery, metastatic gallbladder cancer-completed chemotherapy; history of partial hepatectomy, cholecystectomy, lumpectomy; CAD, arthritis, neuropathy, GERD, pulmonary embolism-not on anticoagulation secondary to GI bleed; with 2 recent admissions in the end of December for acute anemia secondary to GI blood loss-diagnosed gastric antral vascular ectasia; acute on chronic thrombocytopenia; received blood transfusions and subsequently discharged home on 01/31/2025, and a repeat admission 02/03/25 for acute on chronic anemia with repeat EGD showing ulcerated mucosa areas from prior APC with mild oozing, duodenal bulb with area of oozing with duodenitis s/p clip and hemo spray. She also received 3 units of PRBC, 1 unit of platelets and 1 unit of FFP with a goal to keep platelets greater than 40. Ultimately she was discharged home on 02/06/2025, and now she returns to the ED again today due to generalized weakness, shortness of breath and bloody stools. acute on chronic thrombocytopenia with associated weakness and abd pain Secondary to malignancy - PLT 21. Received 1 FFP in the ED. improved marginally to 24 yesterday - LFTs at baseline but alk phos increasing, now [address] with increased liver mets - per Dr. Meadows, patient should be made hospice. No further FFP. Discuss with Dr. Doan today - given FFP in ED - monitor CBC - platelet goal 40 REEVES less likely r/t anemia - CXR with interstitial edema and pleural effusion - BNP 1700 - Lasix 40 mg daily - Cardiology consult - Echocardiogram - endocarditis - Strict I&O - Cardiac diet Endocarditis - echo with endocarditis - ID consult - blood cultures x2 - vancomycin and ceftriaxone - goals of care to be discussed with Dr Doan chronic anemia - hgb 9.6 - occult stool test positive. Per GI, no active bleeding. DC IV PPI. Resume p.o. - A/P CT angio without acute bleed or findings - advance diet - monitor CBC hyponatremia -- appears chronic - Na 128 - follow BMP hx PE - no anticoagulation due to recent GI bleed. s/p IVC filter - chronic tachycardia, likely due to anemia. no hypoxia. continue to monitor metastatic cholangiocarcinoma - followed by [facility] and [facility] full code VTE prophy: pneumoboots Ongoing inpatient stay for IV diuresis, expert consultation Quality Stroke Does the patient have a stroke diagnosis?: No VTE Prior VTE?: Yes VTE Risk Level:: Medical - moderate - high VTE Device Contraindication: N/A - Device Ordered VTE Drug Contraindication: Treatment Not Indicated
[2025-02-21] MEDS: cefTRIAXone sodium 2 GM VIAL IVPUSH (15:49)
[2025-02-21 16:00] VITALS: BP 116/59; PULSE 99; RESP 16; TEMP 36.7; O2SAT 99
[2025-02-21] MEDS: vancomycin HCL 1,000 MG, vancomycin HCL 750 MG in 0.9 % Sodium Chloride 500 ML 267.5 MG IV (17:00)
[2025-02-21] MEDS: traMADoL HCL 50 MG TABLET 25 MG PO (17:30)
--- NOTE | 2025-02-21 18:00 | PHA.PROG ---
Admission Date/Time: February 19, 2025 23:36 Indication: ENDOCARDITIS Weight in k.1 kg Adjusted body weight in Kg: [place] body weight in Kg: Obesity Dosing Indication % IBW: Serum Creatinine - Last 168 Hours 02/19/25 02/20/25 02/21/25 17:32 06:18 06:12 Creatinine 0.52 0.52 0.59 Estimated CrCl and GFR - Last 168 Hours 02/19/25 02/20/25 02/21/25 17:32 06:18 06:12 Estim Creat Clear Calc 107.8 107.8 94.9 Estimated GFR > 60 > 60 > 60 Vancomycin Loading Dose: 1750 MG Current Vancomycin Dosing Regimen: 750 MG Q8H Vancomycin Monitoring using AUC goal of 400 - 600 range with trough as surrogate marker: VQF=460 TROUGH=17.6 Date and Time for next Vancomycin Level to be drawn: 02/22/25 @1500 Pharmacist Comments on Vancomycin Plan: Vancomycin dosing will take advantage of [employer] as a clinical decision support tool that uses Bayesian modeling to calculate individual patient's pharmacokinetic parameters and forecast the patient's drug concentration time course with the target goal AUC 24 range of 400 - 600 mg/L/hr.
[2025-02-21 19:33] VITALS: BP 123/64; PULSE 104; RESP 18; TEMP 36.5; O2SAT 100
[2025-02-21 23:27] VITALS: BP 124/60; PULSE 97; RESP 20; TEMP 36.3; O2SAT 98
[2025-02-22] VITALS (9 sets, daily range): BP systolic 100–153; BP diastolic 53–88; PULSE 71–103; RESP 16–20; TEMP 36.2–36.6; O2SAT 97–98
[2025-02-22] MEDS: vancomycin HCL 750 MG in 0.9 % Sodium Chloride 250 ML 265 MG IV ×2 (01:26→07:39)
--- NOTE | 2025-02-22 04:13 | PC.NURSE ---
02-21-25 at 1935 patient asking to go to bathroom, escorted by this travel writer and her walker utilized, after sitting to toilet, stating to feel okay, didn't need assistance, this travel writer stayed in doorway despite patient wishing for privacy, did try to stand back as far as safely possible. Patient noted to void, stood to wipe self, then while pilling up her pants she was noted to tip to the left, and leaned against wall at slight angle. To avoid a fall this travel writer placed my left arm around her at the wall and nurses arm wedged between patient and toilet paper dispenser, as I was unable to reach around and her weight was off balance guided assistance was maintained. I helped her sit on the floor to get help. Patients family was visiting and son came to door when her walker was maneuvered near shower and made noise. Patient did not hit her head or back, remained alert, denied any pain. Patient assisted of 2 to stand, able to ambulate back to bed, TERRELL, VSS, sat at bed edge and noted with no malagon or redness. Noted patient did not fall, she leaned to wall and then lowered to floor as above. Family was walked thru event, patient denied any discomforts, Hospitalist on duty was updated, patient was monitored and frequently asked if any changes to which she denied. HFR protocol in place, bed alarm on, patient educated to alert staff to her needs, which she was compliant with doing.
[2025-02-22 05:51] LABS: MANUAL DIFF FLAG NO
[2025-02-22] MEDS: Omeprazole 20 MG CAPSULE.DR PO (05:54)
[2025-02-22 06:17] LABS: Anion Gap 12 (12-20); Blood Urea Nitrogen 14 mg/dL (9-16); Calcium 7.9 mg/dL (8.4-10.2); Carbon Dioxide 25 mmol/L (22-29); Chloride 96 mmol/L (96-108); Creatinine Clr Calc Pharmacy 98.3; Estimated Glomerular Filt Rate > 60; Glucose Random 105 mg/dL (60-115); Potassium 3.9 mmol/L (3.3-5.1); Sodium 129 mmol/L (135-145)
[2025-02-22 06:24] LABS: Basophils Absolute Auto 0.1 X10*3/uL (0.0-0.2); Basophils Percent Auto 0.4 % (0-2); Eosinophils Absolute Auto 0.2 X10*3/uL (0.0-0.4); Eosinophils Percent Auto 1.5 % (0-4); Hematocrit 25.2 % (37.0-47.0); Hemoglobin 8.5 g/dl (12.0-16.0); Imm Gran Abs Auto 0.07 X10*3/uL (0.00-0.03); Imm Gran Pct Auto 0.6 % (0.0-0.4); Lymphocytes Percent Auto 8.5 % (20-40); Mean Corpuscular HGB Conc 33.7 g/dl (31.0-35.0); Mean Corpuscular Hemoglobin 33.3 pg (27.0-33.0); Mean Corpuscular Volume 98.8 fL (80.0-98.0); Mean Platelet Volume 13.8 fL (9.4-12.3); Monocytes Percent Auto 8.1 % (2-11); Neutrophils Absolute Auto 9.5 x10*3/uL (2.0-8.3); Neutrophils Percent Auto 80.9 % (45-73); Red Blood Count 2.55 X10*6/uL (4.20-5.50); Red Cell Distribution Width 20.8 % (11.0-16.0); White Blood Count 11.7 X10*3/uL (4.8-10.8)
[2025-02-22 07:30] LABS: Platelet Count 17 X10*3/uL (160-400)
[2025-02-22] MEDS: Sucralfate 1 GM TABLET PO ×2 (07:39→16:00)
[2025-02-22] MEDS: Cholecalciferol (Vitamin D3) 25 MCG TABLET PO (07:39)
[2025-02-22] MEDS: Furosemide 40 MG/4 ML VIAL IVPUSH (07:39)
[2025-02-22] MEDS: Ferrous Sulfate 324 MG TABLET.DR PO ×2 (07:39→20:44)
[2025-02-22] MEDS: 0.9 % Sodium Chloride Flush 3 ML SYRINGE IVFLUSH ×3 (07:39→20:45)
[2025-02-22] MEDS: traMADoL HCL 50 MG TABLET 25 MG PO (09:49)
--- NOTE | 2025-02-22 11:30 | MHC.CM.PN ---
Patient not medically cleared for dc. Met with patient and son at bedside, they continue to decline any home services. Per son, Dr. Doan offered office visits 2x/wk. Message sent to Oncology Nurse Navigator who will reach out to son directly to coordinate. CM will continue to follow.
--- NOTE | 2025-02-22 14:41 | P.PNIM_ITS ---
Subjective Subjective Date of Service: 02/22/25 Interval History: follow-up thrombocytopenia, metastatic cholangiocarcinoma, shortness of breath No changes, patient is still complaining of shortness of breath. No chest pain, nausea or vomiting. Chronic edema. Ongoing weakness. BNP yesterday elevated at 1700. Echo with endocarditis. Goals of care to be discussed with Dr. Doan yesterday, patient would like to continue full treatment, plans to see her again today Platelets continuing to drop, [id number] now Review of Systems Review of Systems: Yes all other systems are reviewed and are negative Physical Exam 2 Vital Signs: Vital Signs: Last Vital Signs Temp 97.5 F 02/22/25 13:56 Pulse 103 H 02/22/25 13:56 Resp 16 02/22/25 13:56 BP 116/53 L 02/22/25 13:56 Pulse Ox 97 02/22/25 11:23 O2 Del Method Room Air 02/22/25 11:23 BMI result Body Mass Index 27.3 General: AOx3, no acute distress, seen with family member at bedside Resp: Diminished throughout CVS: RRR, +murmur GI: +BS, NT, no distention Skin: Warm, dry Neuro: Cranial nerves II-XII grossly intact bilaterally. Motor grossly intact bilaterally Extremities: No pitting edema Psych: Appropriate affect Objective Data Active Medications Acetaminophen (Acetaminophen 325 Mg Tablet) 650 mg PO Q6H PRN PRN Reason: Pain, Mild 1-3,fever,headache Calcium Carbonate (Calcium Carbonate 750 Mg Tab.Chew) 750 mg PO Q4H PRN PRN Reason: Heartburn Last Admin: 02/21/25 07:38 Dose: 750 mg Documented By: ENMA Ceftriaxone Sodium (Ceftriaxone Sodium 2 Gm Vial) 2 gm IVPUSH Q24H [facility] Last Admin: 02/21/25 15:49 Dose: 2 gm Documented By: ENMA Ferrous Sulfate (Ferrous Sulfate 324 Mg Tablet.) 324 mg PO BID [facility] Last Admin: 02/22/25 07:39 Dose: 324 mg Documented By: TRACE Furosemide (Furosemide 40 Mg/4 Ml Vial) 40 mg IVPUSH DAILY [facility]; Protocol Last Admin: 02/22/25 07:39 Dose: 40 mg Documented By: TRACE Vancomycin HCl 750 mg/ Sodium (Chloride) 265 mls @ 265 mls/hr IV Q8H [facility] Last Infusion: 02/22/25 09:15 Dose: Infused Documented By: TRACE Magnesium Hydroxide (Milk Of Magnesia 30 Ml Oral.Susp) 30 ml PO DAILY PRN PRN Reason: Constipation Melatonin (Melatonin 3 Mg Tablet) 6 mg PO BEDTIME PRN PRN Reason: Insomnia Morphine Sulfate (Morphine Sulfate 4 Mg/Ml Cartridge) 2 mg IVPUSH Q4H PRN; Protocol PRN Reason: Pain, Severe (Pain Scale 7-10) Omeprazole (Omeprazole 20 Mg Capsule.Dr) 20 mg PO DAILY@0630 [facility] Last Admin: 02/22/25 05:54 Dose: 20 mg Documented By: LORRAINE Ondansetron HCl (Ondansetron Hcl 4 Mg/2 Ml Vial) 4 mg IVPUSH Q8H PRN PRN Reason: Nausea and Vomiting Oxycodone HCl (Oxycodone Hcl Immed Release 5 Mg Tablet) 5 mg PO Q6H PRN PRN Reason: Pain, Moderate(Pain Scale 4-6) Pharmacy Consult (Consult Rx Vancomycin Dosing) 1 each MISCELLANE DAILY PRN PRN Reason: Consult order Simethicone (Simethicone 80 Mg Tab.Chew) 160 mg PO BID PRN PRN Reason: abdominal distention Last Admin: 02/20/25 15:47 Dose: 160 mg Documented By: JOSE DANIEL Sodium Chloride (0.9 % Sodium Chloride Flush 3 Ml [facility]) [facility] Last Admin: 02/22/25 07:39 Dose: 3 ml Documented By: TRACE Sucralfate (Sucralfate 1 Gm Tablet) 1 gm PO BIDAC [facility] Last Admin: 02/22/25 07:39 Dose: 1 gm Documented By: TRACE Tramadol HCl (Tramadol Hcl 50 Mg Tablet) 25 mg PO Q6H PRN PRN Reason: Pain, Moderate(Pain Scale 4-6) Last Admin: 02/22/25 09:49 Dose: 25 mg Documented By: TRACE Vitamin D (Cholecalciferol (Vitamin D3) 25 Mcg Tablet) 25 mcg PO DAILY [facility] Last Admin: 02/22/25 07:39 Dose: 25 mcg Documented By: TRACE Labs 02/22/25 05:34 02/22/25 05:34 Labs: Laboratory Results - last 24 hr 02/19/25 02/22/25 21:00 05:34 MCV 98.8 H MCH 33.3 H MCHC 33.7 RDW 20.8 H Plt Count 17 L* MPV 13.8 H Immature Gran % (Auto) 0.6 H Neut % (Auto) 80.9 H Lymph % (Auto) 8.5 L [place] % (Auto) 8.1 Eos % (Auto) 1.5 Baso % (Auto) 0.4 Lymph # (Auto) 1.0 L [place] # (Auto) 1.0 Eos # (Auto) 0.2 Baso # (Auto) 0.1 Abs Immat Gran (auto) 0.07 H Absolute Neuts (auto) 9.5 H Absolute Nucleated RBC 0.000 Nucleated RBC % (auto) 0.0 Anion Gap 12 Estim Creat Clear Calc 98.3 Estimated GFR > 60 Random Glucose 105 Calcium 7.9 L Blood Type B Positive Antibody Screen NEGATIVE Microbiology Microbiology Results: Microbiology 02/20/25 Unknown Urine Culture - Final Urine clean catch - Clean Catch Midstream Klebsiella pneumoniae Assessment and Plan (1) 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 Doan, goals of care discussed and patient continues full code - monitor CBC - platelet goal 40 REEVES less likely r/t anemia - CXR with interstitial edema and pleural effusion - BNP 1700 - Lasix 40 mg daily - Echocardiogram - endocarditis - Strict I&O - Cardiac diet Endocarditis - echo with endocarditis - ID consult - blood cultures x2 pending - vancomycin and ceftriaxone - goals of care to be discussed with Dr Doan, at this time patient declines chest CTA chronic anemia - hgb 9.6 - occult stool test positive. Per GI, no active bleeding. DC IV PPI. Resume p.o. - A/P CT angio without acute bleed or findings - advance diet - monitor CBC hyponatremia -- chronic - Na 129 - follow BMP hx PE - no anticoagulation due to recent GI bleed. s/p IVC filter - chronic tachycardia - pt declines CTA chest metastatic cholangiocarcinoma - followed by [facility] [place] and [facility] full code VTE prophy: pneumoboots Ongoing inpatient stay for platelet transfusion, IV abx and expert consultation Quality Stroke Does the patient have a stroke diagnosis?: No VTE Prior VTE?: Yes VTE Risk Level:: Medical - moderate - high VTE Device Contraindication: N/A - Device Ordered VTE Drug Contraindication: Treatment Not Indicated
[2025-02-22] MEDS: Simethicone 80 MG TAB.CHEW 160 MG PO (16:00)
[2025-02-22] MEDS: cefTRIAXone sodium 2 GM VIAL IVPUSH (16:00)
[2025-02-23] MEDS: vancomycin HCL 750 MG in 0.9 % Sodium Chloride 250 ML 265 MG IV ×2 (00:20→14:15)
[2025-02-23 02:51] VITALS: BP 120/63; PULSE 105; RESP 20; TEMP 36.3; O2SAT 97
[2025-02-23] MEDS: Omeprazole 20 MG CAPSULE.DR PO (06:03)
[2025-02-23 06:21] LABS: Hematocrit 25.2 % (37.0-47.0); Hemoglobin 8.7 g/dl (12.0-16.0); Mean Corpuscular HGB Conc 34.5 g/dl (31.0-35.0); Mean Corpuscular Hemoglobin 34.1 pg (27.0-33.0); Mean Corpuscular Volume 98.8 fL (80.0-98.0); Mean Platelet Volume 12.3 fL (9.4-12.3); Red Blood Count 2.55 X10*6/uL (4.20-5.50); Red Cell Distribution Width 21.2 % (11.0-16.0); White Blood Count 12.4 X10*3/uL (4.8-10.8)
[2025-02-23 06:23] LABS: Platelet Count 45 X10*3/uL (160-400)
[2025-02-23 06:29] LABS: Alanine Aminotransferase 69 U/L (0-31); Albumin Level 2.6 g/dL (3.5-5.0); Alkaline Phosphatase 332 U/L (39-117); Anion Gap 14 (12-20); Aspartate Amino Transferase 127 U/L (5-31); Bilirubin Total 1.5 mg/dL (0.0-1.0); Blood Urea Nitrogen 9 mg/dL (9-16); Calcium 7.8 mg/dL (8.4-10.2); Carbon Dioxide 24 mmol/L (22-29); Chloride 97 mmol/L (96-108); Creatinine Clr Calc Pharmacy 94.9; Estimated Glomerular Filt Rate > 60; Glucose Random 106 mg/dL (60-115); Potassium 3.8 mmol/L (3.3-5.1); Sodium 131 mmol/L (135-145); Total Protein 5.9 g/dL (6.5-8.0)
[2025-02-23 06:38] LABS: B Type Natriuretic Peptide 941 pg/mL (<100)
[2025-02-23 07:18] VITALS: BP 126/60; PULSE 105; RESP 18; TEMP 36.3; O2SAT 97
[2025-02-23] MEDS: Sucralfate 1 GM TABLET PO ×2 (07:45→16:28)
[2025-02-23] MEDS: 0.9 % Sodium Chloride Flush 3 ML SYRINGE IVFLUSH ×2 (08:36→16:20)
[2025-02-23] MEDS: Cholecalciferol (Vitamin D3) 25 MCG TABLET PO (08:37)
[2025-02-23] MEDS: Furosemide 40 MG/4 ML VIAL IVPUSH (08:37)
[2025-02-23] MEDS: Ferrous Sulfate 324 MG TABLET.DR PO ×2 (08:37→21:28)
[2025-02-23 11:11] LABS: Vancomycin Random 16.7 mcg/mL (15-20)
[2025-02-23 11:47] VITALS: BP 103/53; PULSE 97; RESP 16; TEMP 36.3; O2SAT 99
--- NOTE | 2025-02-23 12:57 | MHC.CM.PN ---
Per MD rounds patient not medically cleared for dc. CM will continue to follow.
[2025-02-23] MEDS: traMADoL HCL 50 MG TABLET 25 MG PO ×2 (14:12→21:28)
--- NOTE | 2025-02-23 14:20 | P.CNID_ITS ---
History of Present Illness Data of Consult Service Date: 02/22/25 Requesting physician: Ashleigh Mirza Primary Care Provider: Adria Rubio MD HPI Reason for consult: lesion aortic valve She presents with fatigue and found to have low platelets and guaic positive stool. I did talk to Dr Doan,her oncologist. She has had mulitple therapies and has had GI bleed and past breast cancer. 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 Father No problems noted. Other No family history of cancer Family history: reviewed and not pertinent Surgical History Surgical History Hx of cholecystectomy History of esophagogastroduodenoscopy (EGD) History of lumpectomy of right breast (06/26/22) Hx of vein stripping Hx of colonoscopy (~10/2018) S/P breast lumpectomy Social History Social History Household Members: Children Household Members Other:: currently lives with her son Housing: House Are you a primary care rep to a significant other at home: No Do you presently have visiting nurse or other home services: No Unable to assess alcohol history related to: Unknown Alcohol intake: never Comment: Refusing alarms. Patient Tobacco Use Status: Never used Tobacco Smoked in Last 30 Days: No e-Cigarette/Vaping Use: Never Used Second Hand Smoke Exposure: No Use of substances other than those prescribed or required for medical reasons: No Currently Displaying Signs/Symptoms of Drug Intoxication Withdrawal: No Have you been hit, kicked, punched, or otherwise hurt by someone within the past year? If so, by whom?: No Is there a partner from a previous relationship who is making you feel unsafe now?: No Are you made to feel afraid or neglected: No Advance Directives: No Advance Directives Information Provided: Yes Do you have a plan to hurt others: No Plan Recently lost weight without trying: Unsure Eating poorly because of decreased appetite: Yes Nutrition Risks: Poor intake 0-25% >4 days Patient : No service: No Current occupational status: disabled Current occupation: rt handed Cognitive needs: No Hearing needs: No Vision needs: Yes Meds Allergies Allergy/AdvReac Type Severity Reaction Status Date / Time Penicillins (PENICILLINS) Allergy Severe ANAPHYLAXIS, Verified 02/19/25 16:56 swelling streptomycin (STREPTOMYCIN) Allergy Severe ANAPHYLAXIS Verified 02/19/25 16:56 Active Medications: Current Medications Acetaminophen (Acetaminophen 325 Mg Tablet) 650 mg PO Q6H PRN PRN Reason: Pain, Mild 1-3,fever,headache Calcium Carbonate (Calcium Carbonate 750 Mg Tab.Chew) 750 mg PO Q4H PRN PRN Reason: Heartburn Last Admin: 02/21/25 07:38 Dose: 750 mg Ceftriaxone Sodium (Ceftriaxone Sodium 2 Gm Vial) 2 gm IVPUSH Q24H [facility] Last Admin: 02/22/25 16:00 Dose: 2 gm Ferrous Sulfate (Ferrous Sulfate 324 Mg Tablet.) 324 mg PO BID [facility] Last Admin: 02/23/25 08:37 Dose: 324 mg Furosemide (Furosemide 40 Mg/4 Ml Vial) 40 mg IVPUSH DAILY [facility]; Protocol Last Admin: 02/23/25 08:37 Dose: 40 mg Vancomycin HCl 750 mg/ Sodium (Chloride) 265 mls @ 265 mls/hr IV Q12H [facility] Last Admin: 02/23/25 14:15 Dose: 265 mls/hr Magnesium Hydroxide (Milk Of Magnesia 30 Ml Oral.Susp) 30 ml PO DAILY PRN PRN Reason: Constipation Melatonin (Melatonin 3 Mg Tablet) 6 mg PO BEDTIME PRN PRN Reason: Insomnia Morphine Sulfate (Morphine Sulfate 4 Mg/Ml Cartridge) 2 mg IVPUSH Q4H PRN; Protocol PRN Reason: Pain, Severe (Pain Scale 7-10) Omeprazole (Omeprazole 20 Mg Capsule.) 20 mg PO DAILY@0630 [facility] Last Admin: 02/23/25 06:03 Dose: 20 mg Ondansetron HCl (Ondansetron Hcl 4 Mg/2 Ml Vial) 4 mg IVPUSH Q8H PRN PRN Reason: Nausea and Vomiting Oxycodone HCl (Oxycodone Hcl Immed Release 5 Mg Tablet) 5 mg PO Q6H PRN PRN Reason: Pain, Moderate(Pain Scale 4-6) Pharmacy Consult (Consult Rx Vancomycin Dosing) 1 each MISCELLANE DAILY PRN PRN Reason: Consult order Simethicone (Simethicone 80 Mg Tab.Chew) 160 mg PO BID PRN PRN Reason: abdominal distention Last Admin: 02/22/25 16:00 Dose: 160 mg Sodium Chloride (0.9 % Sodium Chloride Flush 3 Ml Syringe) 3 ml IVFLUSH QSHIFT [facility] Last Admin: 02/23/25 08:36 Dose: 3 ml Sucralfate (Sucralfate 1 Gm Tablet) 1 gm PO BIDAC [facility] Last Admin: 02/23/25 07:45 Dose: 1 gm Tramadol HCl (Tramadol Hcl 50 Mg Tablet) 25 mg PO Q6H PRN PRN Reason: Pain, Moderate(Pain Scale 4-6) Last Admin: 02/23/25 14:12 Dose: 25 mg Vitamin D (Cholecalciferol (Vitamin D3) 25 Mcg Tablet) 25 mcg PO DAILY [facility] Last Admin: 02/23/25 08:37 Dose: 25 mcg Home Medications ?Medication ?Instructions ?Recorded ?Confirmed ?Last Taken ?Type sucralfate 1 gram tablet 1 g PO BIDAC 02/03/2502/01/25 History furosemide 20 mg tablet (Lasix) 20 mg PO DAILY PRN Obi ma 02/20/25 02/20/25 Unknown History omeprazole 20 mg capsule,delayed 20 mg PO DAILY@0630 0 02/20/25 02/20/25 02/19/25 History release Physical Exam 2 Vital Signs: Vital Signs: Last Vital Signs Temp 97.4 F 02/23/25 11:47 Pulse 97 02/23/25 11:47 Resp 16 02/23/25 11:47 BP 103/53 L 02/23/25 11:47 Pulse Ox 99 02/23/25 11:47 O2 Del Method Room Air 02/23/25 11:47 BMI result Body Mass Index 27.3 Const: General: cooperative HEENT: Head: Yes normal to inspection Face and sinus: Yes normal facial exam Mouth: Normal oral and palatal mucosa present Teeth and gingiva: d entition normal Eyes: General: appearance normal, both eyes and all related structures P upils: Equal, round and reactive pupils present Resp: Effort & Inspection: normal respiratory effort Cardio: Rate: regular rate Rhythm: regular rhythm GI: Palpation (GI): Soft to palpation and nontender : General: Yes no CVA tenderness Back/Spine/Pelvis: Back: no CVA tenderness Skin: General skin exam: no rashes or lesions noted Neuro: General: moves all extremities Cranial nerves: Yes Equal, round and reactive pupils present Extrem: General: Yes normal to inspection Psych: Appearance: grossly normal Results Labs 02/23/25 05:44 02/23/25 05:44 Labs: Short CBC 02/23/25 Range/Units 05:44 WBC 12.4 H (4.8-10.8) X10*3/uL Hgb 8.7 L (12.0-16.0) g/dl Hct 25.2 L (37.0-47.0) % Plt Count 45 L D (160-400) X10*3/uL BMP 02/23/25 05:44 Sodium 131 L Potassium 3.8 Chloride 97 Carbon Dioxide 24 BUN 9 Creatinine 0.59 Calcium 7.8 L Liver Function 02/23/25 Range/Units 05:44 Total Bilirubin 1.5 H (0.0-1.0) mg/dL AST 127 H (5-31) U/L ALT 69 H (0-31) U/L Alkaline Phosphatase 332 H (39-117) U/L Albumin 2.6 L (3.5-5.0) g/dL Microbiology Microbiology Results: Microbiology 02/21/25 15:39 Blood - Venous Blood Culture - Preliminary No growth after 24 hours. 02/21/25 15:39 Blood - Venous Blood Culture - Preliminary No growth after 24 hours. 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 Blood cultures are negative. Would not interfere further but suggest give po Doxycycline 100 bid for one month if desired (patient may be looking to go home with only therapies desired,not IV antibiotics) D/W Dr Doan.
[2025-02-23] MEDS: Simethicone 80 MG TAB.CHEW 160 MG PO (14:21)
[2025-02-23 15:24] VITALS: BP 142/67; PULSE 99; RESP 18; TEMP 36.4; O2SAT 99
--- NOTE | 2025-02-23 16:01 | P.PNIM_ITS ---
Subjective Subjective Date of Service: 02/23/25 Interval History: follow-up thrombocytopenia, metastatic cholangiocarcinoma, shortness of breath No changes, still having shortness of breath No chest pain, nausea or vomiting. Chronic edema. Ongoing weakness. Continued conversation with Dr Doan on goals of care Platelets imporved from transfusion yesterday, [id number] now Review of Systems Review of Systems: Yes all other systems are reviewed and are negative Physical Exam 2 Vital Signs: Vital Signs: Last Vital Signs Temp 97.5 F 02/23/25 15:24 Pulse 99 02/23/25 15:24 Resp 18 02/23/25 15:24 BP 142/67 H 02/23/25 15:24 Pulse Ox 99 02/23/25 15:24 O2 Del Method Room Air 02/23/25 15:24 BMI result Body Mass Index 27.3 General: AOx3, no acute distress, laying in bed comfortably Resp: Diminished throughout CVS: RRR +murmur GI: +BS, NT, no distention Skin: Warm, dry Neuro: Cranial nerves II-XII grossly intact bilaterally. Motor grossly intact bilaterally Extremities: No pitting [place] continued edema Psych: Flat affect Objective Data Active Medications Acetaminophen (Acetaminophen 325 Mg Tablet) 650 mg PO Q6H PRN PRN Reason: Pain, Mild 1-3,fever,headache Calcium Carbonate (Calcium Carbonate 750 Mg Tab.Chew) 750 mg PO Q4H PRN PRN Reason: Heartburn Last Admin: 02/21/25 07:38 Dose: 750 mg Documented By: ENMA Ceftriaxone Sodium (Ceftriaxone Sodium 2 Gm Vial) 2 gm IVPUSH Q24H [facility] Last Admin: 02/22/25 16:00 Dose: 2 gm Documented By: DANIEL Ferrous Sulfate (Ferrous Sulfate 324 Mg Tablet.) 324 mg PO BID [facility] Last Admin: 02/23/25 08:37 Dose: 324 mg Documented By: DANIEL Furosemide (Furosemide 20 Mg/2 Ml Vial) 20 mg IVPUSH DAILY [facility]; Protocol Vancomycin HCl 750 mg/ Sodium (Chloride) 265 mls @ 265 mls/hr IV Q12H [facility] Last Infusion: 02/23/25 15:25 Dose: Infused Documented By: DANIEL Magnesium Hydroxide (Milk Of Magnesia 30 Ml Oral.Susp) 30 ml PO DAILY PRN PRN Reason: Constipation Melatonin (Melatonin 3 Mg Tablet) 6 mg PO BEDTIME PRN PRN Reason: Insomnia Morphine Sulfate (Morphine Sulfate 4 Mg/Ml Cartridge) 2 mg IVPUSH Q4H PRN; Protocol PRN Reason: Pain, Severe (Pain Scale 7-10) Omeprazole (Omeprazole 20 Mg Capsule.Dr) 20 mg PO DAILY@0630 [facility] Last Admin: 02/23/25 06:03 Dose: 20 mg Documented By: STARR Ondansetron HCl (Ondansetron Hcl 4 Mg/2 Ml Vial) 4 mg IVPUSH Q8H PRN PRN Reason: Nausea and Vomiting Oxycodone HCl (Oxycodone Hcl Immed Release 5 Mg Tablet) 5 mg PO Q6H PRN PRN Reason: Pain, Moderate(Pain Scale 4-6) Pharmacy Consult (Consult Rx Vancomycin Dosing) 1 each MISCELLANE DAILY PRN PRN Reason: Consult order Simethicone (Simethicone 80 Mg Tab.Chew) 160 mg PO BID PRN PRN Reason: abdominal distention Last Admin: 02/23/25 14:21 Dose: 160 mg Documented By: DANEIL Sodium Chloride (0.9 % Sodium Chloride Flush 3 Ml Syringe) [facility] Last Admin: 02/23/25 08:36 Dose: 3 ml Documented By: DANIEL Sucralfate (Sucralfate 1 Gm Tablet) 1 gm PO BIDAC [facility] Last Admin: 02/23/25 07:45 Dose: 1 gm Documented By: DANIEL Tramadol HCl (Tramadol Hcl 50 Mg Tablet) 25 mg PO Q6H PRN PRN Reason: Pain, Moderate(Pain Scale 4-6) Last Admin: 02/23/25 14:12 Dose: 25 mg Documented By: DANIEL Vitamin D (Cholecalciferol (Vitamin D3) 25 Mcg Tablet) 25 mcg PO DAILY [facility] Last Admin: 02/23/25 08:37 Dose: 25 mcg Documented By: DANIEL Labs 02/23/25 05:44 02/23/25 05:44 Labs: Laboratory Results - last 24 hr 02/23/25 02/23/25 05:44 10:50 MCV 98.8 H MCH 34.1 H MCHC 34.5 RDW 21.2 H Plt Count 45 L D MPV 12.3 Absolute Nucleated RBC 0.000 Nucleated RBC % (auto) 0.0 Anion Gap 14 Estim Creat Clear Calc 94.9 Estimated GFR > 60 Random Glucose 106 Calcium 7.8 L Total Bilirubin 1.5 H AST 127 H ALT 69 H Alkaline Phosphatase 332 H B-Natriuretic Peptide 941 H Total Protein 5.9 L Albumin 2.6 L Random Vancomycin 16.7 Microbiology Microbiology Results: Microbiology 02/21/25 15:39 Blood Culture - Preliminary Blood - Venous No growth after 24 hours. 02/21/25 15:39 Blood Culture - Preliminary Blood - Venous No growth after 24 hours. 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 Doan, goals of care discussed and patient continues full code - monitor CBC - platelet goal 40 REEVES less likely r/t anemia - CXR with interstitial edema and pleural effusion - BNP now 941 - decrease Lasix to 20 mg daily - Echocardiogram - endocarditis - Strict I&O - Cardiac diet Endocarditis - echo with endocarditis - ID consult - infectious vs malignant. recommend doxycycline 100 mg b.i.d. x4 weeks - blood cultures x2 negative - vancomycin and ceftriaxone for now, we will switch to doxycycline at discharge chronic anemia - hgb 8.7 - occult stool test positive. Per GI, no active bleeding. DC IV PPI. Resume p.o. - A/P CT angio without acute bleed or findings - advance diet - monitor CBC hyponatremia -- chronic - Na 131, improved - follow BMP hx PE - no anticoagulation due to recent GI bleed. s/p IVC filter - chronic tachycardia - pt declines CTA chest metastatic cholangiocarcinoma - followed by [facility] and [facility] full code VTE prophy: pneumoboots Ongoing inpatient stay for platelet transfusion, IV abx and expert consultation Quality Stroke Does the patient have a stroke diagnosis?: No VTE Prior VTE?: Yes VTE Risk Level:: Medical - moderate - high VTE Device Contraindication: N/A - Device Ordered VTE Drug Contraindication: Treatment Not Indicated
--- NOTE | 2025-02-23 16:09 | P.DS_ITS ---
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: Status: Acute (2) Thrombocytopenia: Status: Acute (3) Endocarditis: Status: Acute (4) Weakness: Status: Acute (5) Physical deconditioning: Status: Acute DS: Summary Hospital Course Hospital Course: Admission H&P: 64-year-old female with a past medical history of metastatic breast cancer status post chemo/radiotherapy/surgery, metastatic gallbladder cancer-completed chemotherapy; history of partial hepatectomy, cholecystectomy, lumpectomy; CAD, arthritis, neuropathy, GERD, pulmonary embolism-not on anticoagulation secondary to GI bleed; with 2 recent admissions in the end of December for acute anemia secondary to GI blood loss-diagnosed gastric antral vascular ectasia; acute on chronic thrombocytopenia; received blood transfusions and subsequently discharged home on 01/31/2025, and a repeat admission 02/03/25 for acute on chronic anemia with repeat EGD showing ulcerated mucosa areas from prior APC with mild oozing, duodenal bulb with area of oozing with duodenitis s/p clip and hemo spray. She also received 3 units of PRBC, 1 unit of platelets and 1 unit of FFP with a goal to keep platelets greater than 40. Ultimately she was discharged home on 02/06/2025, and now she returns to the ED again today due to generalized weakness, shortness of breath and bloody stools. She has abdominal tenderness in the right upper quadrant. She reports that she can not function at home and feels much worse than she did before. She denies any nausea, vomiting, fever, chills, blurry vision, vision loss, chest pain, back pain, night sweats or urinary symptoms including frequency, urgency or dysuria. Hospital course: Patient was admitted for acute on chronic thrombocytopenia with associated weakness and abdominal pain. Platelets have fluctuated throughout her hospital stay, requiring 3 platelet infusions. Her platelets this morning were 26 and per recommendation of Dr Doan, the pt received an additional pack prior to discharge. Hemoglobin remained stable. Abdominopelvic CT was negative for acute bleed or acute findings and the patient was evaluated by GI without any further recommendations at this time. Head CT for weakness was negative. Alk- phos and bilirubin continued to increase, patient has liver Mets on CT. Chronic hyponatremia has been stable and slightly improving since hospital stay. Due to her shortness of breath a BNP was ordered which was elevated this patient was started on 40 mg of IV Lasix, transitioned to 40 mg p.o., now on 20 mg p.o. daily. She also had an echocardiogram which showed a vegetation on the aortic valve, LVEF moderately reduced, difficult to quantify. Blood cultures x2 were negative. Patient was started on vancomycin and ceftriaxone, plan upon discharge will be doxycycline 100 mg b.i.d. x4 days per ID recommendation. ID suggest could be malignant versus infectious vegetation. Goals of care have been discussed multiple times with the patient throughout her hospital stay with Dr. Doan. The patient is not interested in hospice or comfort measures at this time. She will f/u with Dr Doan early next week for repeat labs. Status at Discharge Functional status at discharge: independent ambulation Overall status at discharge: patient is not back to baseline Time Attestation Discharge Coordination Time (in mins): 45 Quality: Safe Use of Opioids Does Pt have an Active Cancer Diagnosis on the Problem List?: Yes Opioid Measure Date for [facility] Report: 01/25/25 Opioid Measure Time for [facility] Report: 13:13 Quality: Stroke Does the patient have a stroke diagnosis?: No Physical Exam Vital Signs: Vital Signs: Last Vital Signs Temp 97.5 F 02/23/25 15:24 Pulse 99 02/23/25 15:24 Resp 18 02/23/25 15:24 BP 142/67 H 02/23/25 15:24 Pulse Ox 99 02/23/25 15:24 O2 Del Method Room Air 02/23/25 15:24 BMI result Body Mass Index 27.3 General: AOx3, no acute distress Resp: diminshed throughout CVS: S1, S2, RRR GI: +BS, NT, no distention Skin: Warm, dry Neuro: Cranial nerves II-XII grossly intact bilaterally. Motor grossly intact bilaterally Extremities: LE non-pitting edema Psych: flat, depressed affect DS: Data Data Completed and Pending Completed studies during hospitalization [Text1]: Procedures Control Bleeding in Gastrointestinal Tract, Via Natural or Artificial Opening Endoscopic (02/02/25) Insertion of Infusion Device into Upper Vein, Percutaneous Approach (02/02/25) Insertion of Intraluminal Device into Inferior Vena Cava, Percutaneous Approach (01/25/25) Introduction of Mineral-based Topical Hemostatic Agent into Upper GI, Via Natural or Artificial Opening Endoscopic, [employer] 6 (02/02/25) Transfusion of Nonautologous Frozen Plasma into Peripheral Vein, Percutaneous Approach (02/02/25) Transfusion of Nonautologous Platelets into Peripheral Vein, Percutaneous Approach (02/02/25) Transfusion of Nonautologous Red Blood Cells into Peripheral Vein, Percutaneous Approach (02/02/25) Labs on day of discharge: Laboratory Results - last 24 hr 02/23/25 02/23/25 05:44 10:50 WBC 12.4 H RBC 2.55 L Hgb 8.7 L Hct 25.2 L MCV 98.8 H MCH 34.1 H MCHC 34.5 RDW 21.2 H Plt Count 45 L D MPV 12.3 Absolute Nucleated RBC 0.000 Nucleated RBC % (auto) 0.0 Sodium 131 L Potassium 3.8 Chloride 97 Carbon Dioxide 24 Anion Gap 14 BUN 9 Creatinine 0.59 Estim Creat Clear Calc 94.9 Estimated GFR > 60 Random Glucose 106 Calcium 7.8 L Total Bilirubin 1.5 H AST 127 H ALT 69 H Alkaline Phosphatase 332 H B-Natriuretic Peptide 941 H Total Protein 5.9 L Albumin 2.6 L Random Vancomycin 16.7 Preliminary micro results at discharge 02/21/25 15:39 Blood Culture - Preliminary Blood - Venous No growth after 24 hours. 02/21/25 15:39 Blood Culture - Preliminary Blood - Venous No growth after 24 hours. Discharge Plan Discharge Anticipated Discharge Date/Time: 02/24/25 16:17 Patient Disposition: Home, Self-Care Discharge Diagnosis: Acute on chronic thrombocytopenia, endocarditis, new onset CHF, chronic anemia, metastatic cholangiocarcinoma Referrals: Adria Ruboi MD [Primary Care Provider, Internal Medicine] - 1 Week Discharge Medications: New doxycycline monohydrate 100 mg capsule 100 mg PO BID Qty: 56 0RF Continued simethicone [Gas Relief (simethicone)] 125 mg tablet,chewable 125 mg PO BID-QID PRN (Reason: abdominal distention) 10 Days Qty: 30 0RF (DME) walker Misc Qty: 1 0RF Rx Instructions: As Directed. No wheels walker with seat. (DME) Chair, shower Misc Qty: 1 0RF Rx Instructions: As Directed pantoprazole 40 mg tablet,delayed release (DR/EC) 40 mg PO BID Qty: 180 0RF ferrous sulfate 324 mg (65 mg iron) tablet,delayed release (DR/EC) 324 mg PO BID Qty: 180 0RF furosemide [Lasix] 20 mg tablet 20 mg PO DAILY PRN (Reason: Edema) sucralfate 1 gram tablet 1 g PO BIDAC (DME) bath stole See Rx Instructions .Route .MEDSUPPLY Qty: 1 0RF Rx Instructions: As directed (DME) compression stockings medium See Rx Instructions .Route .MEDSUPPLY Qty: 1 0RF Rx Instructions: As directed (DME) walker with seat See Rx Instructions .Route .MEDSUPPLY Qty: 1 0RF Rx Instructions: As directed cholecalciferol (vitamin D3) 25 mcg (1,000 unit) capsule 25 mcg PO DAILY 90 Days Qty: 90 1RF Discontinued omeprazole 20 mg capsule,delayed release(DR/EC) 20 mg PO DAILY@0630 Discharge Orders: Discharge Order (Routine); Ordered 02/24/25 Ordered By: Ashleigh Mirza Diet: Low salt diet Activity on Discharge: Use cane or walker Stand Alone Forms: Patient Portal Discharge page Print Language: Pashto Care Plan Goals: Recover from endocarditis Management of new onset CHF Management of metastatic cholangiocarcinoma Chronic thrombocytopenia - outpatient platelet infusions Health Concerns: Metastatic cholangiocarcinoma with chronic thrombocytopenia complicated by endocarditis (infectious versus malignant) Plan of Treatment: Doxycycline 100 mg 2 times daily for 4 weeks Continue Lasix 20 mg daily Follow-up with oncologist in the next few days for repeat labs Follow-up with PCP within 1 week for CHF management and repeat labs Assessment: See above
[2025-02-23] MEDS: cefTRIAXone sodium 2 GM VIAL IVPUSH (16:20)
[2025-02-23 19:24] VITALS: BP 121/63; PULSE 99; RESP 18; TEMP 36.6; O2SAT 97
[2025-02-23 23:13] VITALS: BP 121/60; PULSE 95; RESP 18; TEMP 36.3; O2SAT 94
[2025-02-24] MEDS: vancomycin HCL 750 MG in 0.9 % Sodium Chloride 250 ML 265 MG IV (01:35)
[2025-02-24] MEDS: Acetaminophen 325 MG TABLET 650 MG PO (02:51)
[2025-02-24 03:21] VITALS: BP 112/52; PULSE 69; RESP 18; TEMP 36.3; O2SAT 95
[2025-02-24] MEDS: Omeprazole 20 MG CAPSULE.DR PO (05:51)
[2025-02-24 06:22] LABS: Hematocrit 26.1 % (37.0-47.0); Hemoglobin 8.9 g/dl (12.0-16.0); Mean Corpuscular HGB Conc 34.1 g/dl (31.0-35.0); Mean Corpuscular Volume 99.6 fL (80.0-98.0); Mean Platelet Volume 12.1 fL (9.4-12.3); Red Blood Count 2.62 X10*6/uL (4.20-5.50); Red Cell Distribution Width 21.9 % (11.0-16.0); White Blood Count 11.6 X10*3/uL (4.8-10.8)
[2025-02-24 06:23] LABS: Platelet Count 26 X10*3/uL (160-400)
[2025-02-24 06:33] LABS: Alanine Aminotransferase 80 U/L (0-31); Albumin Level 2.6 g/dL (3.5-5.0); Alkaline Phosphatase 354 U/L (39-117); Anion Gap 14 (12-20); Aspartate Amino Transferase 148 U/L (5-31); Bilirubin Total 1.5 mg/dL (0.0-1.0); Blood Urea Nitrogen 9 mg/dL (9-16); Calcium 7.8 mg/dL (8.4-10.2); Carbon Dioxide 24 mmol/L (22-29); Chloride 95 mmol/L (96-108); Estimated Glomerular Filt Rate > 60; Glucose Random 106 mg/dL (60-115); Potassium 4.1 mmol/L (3.3-5.1); Sodium 129 mmol/L (135-145); Total Protein 6.2 g/dL (6.5-8.0)
[2025-02-24 07:50] VITALS: BP 120/52; PULSE 91; RESP 18; TEMP 36.4; O2SAT 98
[2025-02-24] MEDS: 0.9 % Sodium Chloride Flush 3 ML SYRINGE IVFLUSH (08:13)
[2025-02-24] MEDS: Sucralfate 1 GM TABLET PO (08:13)
[2025-02-24] MEDS: Cholecalciferol (Vitamin D3) 25 MCG TABLET PO (09:20)
[2025-02-24] MEDS: Ferrous Sulfate 324 MG TABLET.DR PO (09:20)
[2025-02-24] MEDS: Furosemide 20 MG/2 ML VIAL IVPUSH (09:21)
[2025-02-24] MEDS: traMADoL HCL 50 MG TABLET 25 MG PO (09:51)
--- NOTE | 2025-02-24 10:54 | MHC.CM.PN ---
Per MD rounds, patient will receive PLTs then will be medically cleared for dc home w/ family support. Family to transport.
[2025-02-24 11:32] LABS: Vancomycin Random 18.3 mcg/mL (15-20)
--- NOTE | 2025-02-24 11:41 | HE.PHANOTE ---
Re: Spencer Renal function is improving. Trough returned at 18.3, pt is therapeutic. Continue current dose of 750mg q12h, with predicted AUC 488, predicted trough 15.7. Next trough 02/25 @ 1100.
[2025-02-24 12:00] VITALS: BP 114/54; PULSE 98; RESP 18; TEMP 36.3; O2SAT 100
[2025-02-24 12:35] VITALS: BP 115/56; PULSE 91; RESP 18; TEMP 36
[2025-02-24 12:51] VITALS: BP 111/53; PULSE 95; RESP 17; TEMP 36.9
[2025-02-24 13:29] VITALS: BP 120/58; PULSE 98; RESP 16; TEMP 37
== END 2025-02-24 14:26 | disposition home or self-care (01) | DRG 661 ==
LOC: HO.ED 23:36 → HO.EDOVER 23:43 → HO.S3 02-20 00:35
PROVIDERS: Physician Assistant; Physician Assistant Medical; Admitting Provider Physician Assistant; Emergency Provider Emergency Medicine Emergency Medical Services; PCP Internal Medicine; Visit Provider Physician Assistant
DX: D69.6 Thrombocytopenia, unspecified (principal); I33.0 Acute and subacute infective endocarditis; C23 Malignant neoplasm of gallbladder; C78.7 Secondary malignant neoplasm of liver and intrahepatic bile duct; I50.9 Heart failure, unspecified; E87.1 Hypo-osmolality and hyponatremia; D63.0 Anemia in neoplastic disease; G89.3 Neoplasm related pain (acute) (chronic); I25.10 Atherosclerotic heart disease of native coronary artery without angina pectoris; Z85.3 Personal history of malignant neoplasm of breast; Z86.711 Personal history of pulmonary embolism; Z79.899 Other long term (current) drug therapy
CPT/HCPCS: 36415; 70450; 71045; 74174; 80048; 80053; 80076; 80202; 81001; 82272; 83690; 83735; 83880; 84484; 85025; 85027; 86850; 86900; 86901; 87040; 87086; 87088; 87186; 93005; 93306; 99285; J0696; J1938; J3370; P9073; Q9957

== ENCOUNTER → 2025-02-19 17:02 | Outpatient (BNV) | payer OTHER, SELFPAY | PROVIDERS: Admitting Provider Physician Assistant; Emergency Provider Emergency Medicine Emergency Medical Services; PCP Internal Medicine; Visit Provider Internal Medicine Cardiovascular Disease | DX: I25.2 Old myocardial infarction (principal); R00.0 Tachycardia, unspecified | CPT/HCPCS: 93010 ==

== ENCOUNTER → 2025-02-19 19:30 | Outpatient (BNV) | payer OTHER, SELFPAY | PROVIDERS: Admitting Provider Physician Assistant; Emergency Provider Emergency Medicine Emergency Medical Services; PCP Internal Medicine; Visit Provider Radiology Diagnostic Radiology | DX: J98.11 Atelectasis (principal); G31.9 Degenerative disease of nervous system, unspecified | CPT/HCPCS: 70450; 74174 ==

== ENCOUNTER 2025-02-19 23:36 | Outpatient (BNV) | payer OTHER, SELFPAY | END 2025-02-21 07:00 | PROVIDERS: Admitting Provider Physician Assistant; Emergency Provider Emergency Medicine Emergency Medical Services; PCP Internal Medicine; Visit Provider Internal Medicine | DX: I35.2 Nonrheumatic aortic (valve) stenosis with insufficiency (principal); I35.8 Other nonrheumatic aortic valve disorders; I34.0 Nonrheumatic mitral (valve) insufficiency; I34.81 Nonrheumatic mitral (valve) annulus calcification | CPT/HCPCS: 93306 ==

== ENCOUNTER 2025-02-19 23:36 | Outpatient (BNV) | payer OTHER, SELFPAY | END 2025-02-20 08:50 | PROVIDERS: Admitting Provider Physician Assistant; Emergency Provider Emergency Medicine Emergency Medical Services; PCP Internal Medicine; Visit Provider Radiology Vascular & Interventional Radiology | DX: J90 Pleural effusion, not elsewhere classified (principal) | CPT/HCPCS: 71045 ==

== ENCOUNTER → 2025-02-19 23:36 | Outpatient (BNV) | payer OTHER, SELFPAY | PROVIDERS: Admitting Provider Physician Assistant; Emergency Provider Emergency Medicine Emergency Medical Services; PCP Internal Medicine; Visit Provider Internal Medicine | DX: I50.9 Heart failure, unspecified (principal); C23 Malignant neoplasm of gallbladder; D69.6 Thrombocytopenia, unspecified | CPT/HCPCS: 99232 ==

== ENCOUNTER → 2025-02-19 23:36 | Outpatient (BNV) | payer OTHER, SELFPAY | PROVIDERS: Admitting Provider Physician Assistant; Emergency Provider Emergency Medicine Emergency Medical Services; PCP Internal Medicine; Visit Provider Physician Assistant | DX: C23 Malignant neoplasm of gallbladder (principal); D69.6 Thrombocytopenia, unspecified; I38 Endocarditis, valve unspecified; R53.1 Weakness; R53.81 Other malaise | CPT/HCPCS: 99223; 99232; 99233; 99239 ==

== ENCOUNTER → 2025-02-19 23:36 | Outpatient (BNV) | payer OTHER, SELFPAY | PROVIDERS: Admitting Provider Physician Assistant; Emergency Provider Emergency Medicine Emergency Medical Services; PCP Internal Medicine; Visit Provider Internal Medicine Medical Oncology | DX: C23 Malignant neoplasm of gallbladder (principal) | CPT/HCPCS: 99222 ==

== ENCOUNTER 2025-03-07 14:40 | Outpatient (REF) | payer OTHER, SELFPAY ==
--- OUTSIDE RECORDS SUMMARY | 2025-03-07 15:10 | XMS_ITS | Clinical Summary ---
Author Organization [facility], Address [address] [place] [address] [place] [address] Phone Care Team Providers Care Grocery Buyer Name Role Phone OrtizAlbert martin Primary Care Provider [phone] Allergies Active Allergy Reactions Criticality Noted Date [...] Pneumococcal Vaccine: 50+ Ye ars (1 of 1 - PCV) 12/13/2011 Influenza Vaccine (#1) 2025 Hepatitis B Vaccine Aged Out No longe r eligible based on patient's age to complete this topic Insurance [employer] Care Teams Grocery Buyer Relationship Specialty Start Date End Date Albert Ortiz DO [address] [place] [id number] PCP - General Nephrology 01/10/21
--- OUTSIDE RECORDS SUMMARY | 2025-03-07 15:10 | XMS_ITS | Clinical Summary ---
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 Role Phone Adria Rubio MD Primary Care Provider [phone] Allergies Active Allergy Reactions Criticality Noted Date [...] Diagnosed Date Rotator cuff tendonitis 09/30/2024 Sacroiliitis ([facility] V24) 09/30/2024 Segmental and somatic dysfunction of sacral tiki on 09/30/2024 Chronic pain of right hip 09/30/2024 Greater trochanteric bursitis 09/30/2024 Lumbar spondylosis 06/30/2024 Back pain 06/30/2024 Malignant neoplasm of left b reast ([facility] V24, [facility] V28) 06/30/2024 Chest pain 06/30/2024 Chronic cough 06/30/2024 History of colon polyps 06/30/2024 Neuropathy 06/30/2024 Pneumonitis 06/30/2024 Pulmonary embolism ([facility] V24, [facility] V28) Pulmonary nodules 06/30/2024 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[facility] V24, [facility] V28) Cancer Staging:Pathologic:Stage IIIB(pT2b, pN1, cM0) - [...] History Medical History Date Comments Breast cancer ([facility] V24, [facility] V28[facility] Clotting disorder ([facility] V24) Family History Medical History Relation Name [...] 5 Years) and At-Risk Patients (6 to 49 Years) (1 of 2 - PCV) 1980 [...] or Tdap) 03/28/2025 03/28/2015, 03/28/2015 Influenza Vaccine (#1) 2025 , 07/03/2023, 05/16/2022, Additional history exists HIB Vaccines Aged [...] patient's age to complete this topic Insurance [facility] [address] MEDICA[place] Care Teams 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
== END 2025-03-07 14:41 | disposition home or self-care (01) ==
LOC: HO.RADIR 14:40
PROVIDERS: Visit Provider Internal Medicine Medical Oncology
DX: C23 Malignant neoplasm of gallbladder (principal)
CPT/HCPCS: 36573; C1751; C1894